=== PATIENT | male | born 1960 | race Caucasian/White ===

== ENCOUNTER 2022-11-08 17:42 | Inpatient (IN) | payer MEDICARE, SELFPAY ==
[2022-11-08] VITALS (7 sets, daily range): BP systolic 124–148; BP diastolic 78–80; PULSE 70–82; RESP 15–18; TEMP 36–36.8; O2SAT 96–100; BMI 28.2; BMI 26.6
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
[2022-11-08 18:37] LABS: Absolute Lymphocyte Count 1.47 X10^3/uL (0.83-4.51); Absolute Neutrophil Count 3.7 X10^3/uL (2.0-7.7); Basophil# 0.07 X10^3/uL; Basophil% 1.2 % (0-1); Eosinophil# 0.13 X10^3/uL; Eosinophils% 2.2 % (0-5); Hematocrit 39.1 % (40-54); Hemoglobin 13.5 g/dL (13.0-16.5); Lymphocyte # 1.47 X10^3/ul (0.83-4.51); Lymphocyte % 24.6 % (19-41); Mean Corp Hgb Conc 34.5 g/dL (32-36); Mean Corpuscular Hgb 31.2 pg (27.0-32.0); Mean Corpuscular Volume 90.3 fL (80-94); Mean Platelet Vol. 10.4 fl (6.2-12.0); Monocyte# 0.63 X10^3/uL; Monocyte% 10.5 % (0-10); NRBC Flagged by Analyzer 0 % (0-5); Neutrophil # 3.67 X10^3/uL (2.7-7.7); Neutrophil % 61.3 % (47-70); Platelet Count 193 K/mm3 (150-450); RBC Distribution Width CV 12.8 % (11.6-14.6); RBC Distribution Width SD 42.5 fl (35.1-43.9); Red Blood Count 4.33 M/mm3 (4.6-6.2)
[2022-11-08 18:52] LABS: Anion Gap 8 (5-15); BUN 12 mg/dL (7-18); BUN/Creat Ratio 12.5 RATIO (10-20); Calcium,Total 8.9 mg/dL (8.5-10.1); Chloride 101 mmol/L (98-107); Creatinine, Serum 0.96 mg/dL (0.70-1.30); EST Glomerular Filtration Rate 84 mL/min (>60); Est Glom Filt Rate - Afr Amer 102 mL/min (>60); Estimated Creatinine Clearance 86.45 ml/min; Glucose 332 mg/dL (74-106); Sodium Level 135 mmol/L (136-145)
[2022-11-08] MEDS: oxyCODONE 5 MG Tablet PO (19:06)
[2022-11-08 19:09] LABS: International Normalized Ratio 0.9; Prothrombin Time (Protime)PT. 12.3 SECONDS (11.7-14.9)
[2022-11-08 19:20] LABS: Alcohol, Blood (Medical)-Serum < 3.0 mg/dL
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
[2022-11-08 19:35] LABS: Amphetamine Urine VISTA NEGATIVE (<1000 ng/mL); Barbiturate Urine VISTA NEGATIVE (< 200 ng/mL); Benzodiazepine Urine VISTA NEGATIVE (< 200 ng/mL); Cocaine Urine VISTA POSITIVE (< 300 ng/mL); Ecstacy Urine VISTA NEGATIVE (< 500 ng/mL); Methadone Urine VISTA NEGATIVE (< 300 ng/mL); PCP Urine VISTA NEGATIVE (< 25 ng/mL); THC Urine VISTA NEGATIVE (< 50 ng/mL); Vista UDS pH Range 6
[2022-11-08 20:22] LABS: Magnesium 1.8 mg/dL (1.6-2.6); Phosphorus 2.9 mg/dL (2.5-4.9)
[2022-11-08 21:00] LABS: HIV - WCH Non-Reactive (Nonreactive)
[2022-11-08 21:57] LABS: AST(SGOT) 27 U/L (15-37); Alanine Aminotransfer ALT/SGPT 24 U/L (16-61); Albumin, Serum 3.1 g/dL (3.2-5.0); Alkaline Phosphatase 111 U/L (45-117); Bilirubin, Direct 0.07 mg/dL (0.00-0.30); Protein, Total 6.1 g/dL (6.4-8.2)
--- NOTE | 2022-11-08 22:11 | CPS ---
smi put in room before pt arrived
[2022-11-08 22:24] LABS: Hepatitis B Surface Antibody Non-Reactive; Hepatitis B Surface Antigen Non-Reactive (Nonreactive); Hepatitis C Antibody Preliminary Reactive (Nonreactive)
[2022-11-08] MEDS: Enoxaparin 100 MG/ML Syringe 90 MG SC (22:51)
[2022-11-08] MEDS: hydrOXYzine PAM 25 MG Capsule 50 MG PO (22:52)
[2022-11-08] MEDS: Phenobarbital 32.4 MG Tablet PO (22:52)
[2022-11-08] MEDS: Lactated Ringers 1,000 ML 125 ML IV (22:53)
[2022-11-08] MEDS: Morphine 2 MG/ML Syringe IV (22:53)
[2022-11-08] MEDS: 0.9% Saline Lock 10 ML Syringe IV (22:53)
[2022-11-08] MEDS: Atorvastatin Calcium 80 MG Tablet PO (22:54)
[2022-11-08 23:25] LABS: Bedside Glucose > 500 mg/dL (74-106)
[2022-11-08 23:53] LABS: Glucose 693 mg/dL (74-106)
[2022-11-08] MEDS: Insulin Human 75/25 Kwickpen 40 UNIT SC (23:57)
[2022-11-09] VITALS (9 sets, daily range): BP systolic 116–136; BP diastolic 71–92; PULSE 69–84; RESP 18–20; TEMP 36.6–37; O2SAT 91–97
[2022-11-09] MEDS: Insulin Lispro 100 UNIT/ML INSULN.PEN 20 UNIT SC (00:32)
[2022-11-09] MEDS: Phenobarbital 32.4 MG Tablet PO ×6 (02:35→22:13)
[2022-11-09 03:25] LABS: Bedside Glucose 187 mg/dL (74-106)
[2022-11-09 07:00] LABS: Bedside Glucose 56 mg/dL (74-106)
[2022-11-09 07:00] LABS: Bedside Glucose 163 mg/dL (74-106)
[2022-11-09 07:03] LABS: Absolute Lymphocyte Count 1.76 X10^3/uL (0.83-4.51); Absolute Neutrophil Count 3.2 X10^3/uL (2.0-7.7); Basophil# 0.05 X10^3/uL; Basophil% 0.9 % (0-1); Eosinophil# 0.16 X10^3/uL; Eosinophils% 2.8 % (0-5); Hematocrit 45.7 % (40-54); Hemoglobin 15.7 g/dL (13.0-16.5); Lymphocyte # 1.76 X10^3/ul (0.83-4.51); Lymphocyte % 31.2 % (19-41); Mean Corp Hgb Conc 34.4 g/dL (32-36); Mean Corpuscular Hgb 31.7 pg (27.0-32.0); Mean Corpuscular Volume 92.3 fL (80-94); Mean Platelet Vol. 10.8 fl (6.2-12.0); Monocyte# 0.43 X10^3/uL; Monocyte% 7.6 % (0-10); NRBC Flagged by Analyzer 0 % (0-5); Neutrophil # 3.24 X10^3/uL (2.7-7.7); Neutrophil % 57.3 % (47-70); Platelet Count 188 K/mm3 (150-450); RBC Distribution Width SD 44.1 fl (35.1-43.9); Red Blood Count 4.95 M/mm3 (4.6-6.2); White Blood Count 5.7 K/mm3 (4.4-11.0)
[2022-11-09 07:14] LABS: Prothrombin Time (Protime)PT. 12.9 SECONDS (11.7-14.9)
[2022-11-09 07:51] LABS: ALB/GLOB Ratio 0.9 RATIO (0.9-2.4); AST(SGOT) 21 U/L (15-37); Alanine Aminotransfer ALT/SGPT 30 U/L (16-61); Albumin, Serum 3.4 g/dL (3.2-5.0); Alkaline Phosphatase 111 U/L (45-117); Anion Gap 7 (5-15); BUN 11 mg/dL (7-18); BUN/Creat Ratio 13.2 RATIO (10-20); Calcium,Total 9.7 mg/dL (8.5-10.1); Chloride 105 mmol/L (98-107); Creatinine, Serum 0.83 mg/dL (0.70-1.30); EST Glomerular Filtration Rate 99 mL/min (>60); Est Glom Filt Rate - Afr Amer 120 mL/min (>60); Estimated Creatinine Clearance 102.95 ml/min; Globulin 3.6 g/dL (2.2-4.2); Glucose 114 mg/dL (74-106); Potassium 3.4 mmol/L (3.5-5.1); Sodium Level 142 mmol/L (136-145)
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
[2022-11-09 08:50] LABS: Hemoglobin A1c 10.8 % (3.8-5.6)
[2022-11-09] MEDS: Sertraline 50 MG Tablet PO (09:13)
[2022-11-09] MEDS: Folic Acid 1 MG Tablet PO (09:13)
[2022-11-09] MEDS: Tamsulosin HCl 0.4 MG Capsule PO (09:14)
[2022-11-09] MEDS: Enoxaparin 100 MG/ML Syringe 90 MG SC ×2 (09:14→22:14)
[2022-11-09] MEDS: Loratadine 10 MG Tablet PO (09:15)
[2022-11-09] MEDS: Thiamine Hydrochloride 100 MG Tablet PO (09:15)
[2022-11-09] MEDS: Aspirin 81 MG TAB.CHEW PO (09:15)
[2022-11-09] MEDS: Acetaminophen 325 MG Tablet 650 MG PO (09:17)
[2022-11-09] MEDS: Gabapentin 300 MG Capsule PO ×2 (09:18→16:20)
[2022-11-09] MEDS: oxyCODONE 5 MG Tablet PO (09:38)
[2022-11-09] MEDS: Insulin Human 75/25 Kwickpen 40 UNIT SC ×2 (09:39→22:09)
--- NOTE | 2022-11-09 09:52 | NURSING ---
per pt request, this nurse called his mother @ [phone], she did not answer phone-pt requesting she call court and let court know why he did not show this am
--- NOTE | 2022-11-09 10:25 | NURSING ---
attempt to call pt mother again unsuccessful, no answer
[2022-11-09] MEDS: Insulin Lispro 100 UNIT/ML INSULN.PEN SC ×2 (11:15→16:20)
[2022-11-09 11:40] LABS: Bedside Glucose 354 mg/dL (74-106)
--- NOTE | 2022-11-09 11:52 | ADDICTION ---
This copywriter met with PT to conduct ASAM, MSE, AUDIT, DUDIT assessments and to plan for d/c. PT A+Ox4 and participated actively. All assessments completed and placed in PT's chart. PT plans to f/u with [facility] on Monday morning. [facility] will transport to treatment.
--- NOTE | 2022-11-09 12:37 | NURSING ---
[facility] - transportation - [facility] [phone] If anything changes like leaves AMA, or not being d/c on Monday.... please call the transportation
--- NOTE | 2022-11-09 12:39 | CASEMGMT ---
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 Patient sitting up in bed and agreeable to speak with SW. SW inquired about patient's HCPOA/LW documents. Patient reports both are completed and on file at hospital in [place]. Patient reports his [place] is his HCPOA. SW encouraged patient to request a copy from that hospital to keep for his personal records and provide a copy to [facility] when able. Patient reports understanding. Hanna Joseph MSW, FELIPA
[2022-11-09] MEDS: Acetaminophen 500 MG Tablet 1000 MG PO ×2 (13:33→22:15)
[2022-11-09] MEDS: Ibuprofen 600 MG Tablet PO (13:33)
[2022-11-09 16:50] LABS: Bedside Glucose 408 mg/dL (74-106)
--- NOTE | 2022-11-09 17:14 | CPS ---
Patient sleeping x3 for IS rounds
[2022-11-09] MEDS: Atorvastatin Calcium 80 MG Tablet PO (22:14)
[2022-11-10] VITALS (8 sets, daily range): BP systolic 104–132; BP diastolic 67–88; PULSE 63–82; RESP 16–18; TEMP 36.5–37.1; O2SAT 93–97
[2022-11-10] MEDS: Insulin Lispro 100 UNIT/ML INSULN.PEN 20 UNIT SC (00:38)
[2022-11-10 02:01] LABS: Bedside Glucose > 500 mg/dL (74-106)
[2022-11-10 02:01] LABS: Bedside Glucose > 500 mg/dL (74-106)
[2022-11-10] MEDS: Phenobarbital 32.4 MG Tablet PO ×6 (02:09→21:52)
[2022-11-10] MEDS: oxyCODONE 5 MG Tablet PO (02:18)
[2022-11-10] MEDS: Ibuprofen 600 MG Tablet PO ×2 (02:19→19:44)
[2022-11-10 02:35] LABS: Bedside Glucose 299 mg/dL (74-106)
[2022-11-10] MEDS: Insulin Lispro 100 UNIT/ML INSULN.PEN SC ×4 (06:38→22:01)
[2022-11-10 06:40] LABS: International Normalized Ratio 0.9; Prothrombin Time (Protime)PT. 12.6 SECONDS (11.7-14.9)
[2022-11-10 07:00] LABS: Bedside Glucose 348 mg/dL (74-106)
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
[2022-11-10] MEDS: Folic Acid 1 MG Tablet PO (09:16)
[2022-11-10] MEDS: Aspirin 81 MG TAB.CHEW PO (09:16)
[2022-11-10] MEDS: Lidocaine 5% Patch 1 PATCH TOPICAL (09:17)
[2022-11-10] MEDS: Enoxaparin 100 MG/ML Syringe 90 MG SC ×2 (09:17→21:54)
[2022-11-10] MEDS: Thiamine Hydrochloride 100 MG Tablet PO (09:17)
[2022-11-10] MEDS: Loratadine 10 MG Tablet PO (09:17)
[2022-11-10] MEDS: Tamsulosin HCl 0.4 MG Capsule PO (09:17)
[2022-11-10] MEDS: Sertraline 50 MG Tablet PO (09:18)
[2022-11-10] MEDS: Insulin Glargine-YFGN 100 UNIT/ML Pen 35 UNIT SC ×2 (09:29→22:01)
[2022-11-10] MEDS: Insulin Lispro 100 UNIT/ML INSULN.PEN 12 UNIT SC ×2 (11:59→16:57)
[2022-11-10 12:30] LABS: Bedside Glucose 371 mg/dL (74-106)
[2022-11-10] MEDS: Acetaminophen 500 MG Tablet 1000 MG PO ×2 (14:08→21:53)
[2022-11-10 17:30] LABS: Bedside Glucose 437 mg/dL (74-106)
[2022-11-10] MEDS: hydrOXYzine PAM 25 MG Capsule 50 MG PO (19:44)
[2022-11-10] MEDS: Atorvastatin Calcium 80 MG Tablet PO (21:52)
[2022-11-10] MEDS: traZODone 100 MG Tablet PO (21:52)
[2022-11-10] MEDS: Insulin Lispro 100 UNIT/ML INSULN.PEN 13 UNIT SC (22:31)
--- NOTE | 2022-11-10 22:47 | NURSING ---
blood sugar 562. dr sequeira notified. total of 20u novolog given in addition to the 35 units of long acting insulin given
[2022-11-10 22:51] LABS: Bedside Glucose > 500 mg/dL (74-106)
[2022-11-11 02:00] VITALS: BP 118/73; PULSE 77; RESP 15; TEMP 36.6; O2SAT 93
[2022-11-11] MEDS: Phenobarbital 32.4 MG Tablet PO ×5 (02:11→23:58)
[2022-11-11 05:22] LABS: Prothrombin Time (Protime)PT. 13.1 SECONDS (11.7-14.9)
[2022-11-11] MEDS: Acetaminophen 500 MG Tablet 1000 MG PO ×3 (06:40→21:54)
[2022-11-11] MEDS: Insulin Lispro 100 UNIT/ML INSULN.PEN 12 UNIT SC ×3 (06:41→16:49)
[2022-11-11] MEDS: Insulin Lispro 100 UNIT/ML INSULN.PEN SC ×4 (06:41→21:56)
[2022-11-11 07:05] VITALS: O2SAT 94
[2022-11-11 07:05] LABS: Bedside Glucose 424 mg/dL (74-106)
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
[2022-11-11 08:00] VITALS: BP 107/84; PULSE 81; RESP 18; TEMP 37.2; O2SAT 95
[2022-11-11] MEDS: Folic Acid 1 MG Tablet PO (08:33)
[2022-11-11] MEDS: Aspirin 81 MG TAB.CHEW PO (08:33)
[2022-11-11] MEDS: Loratadine 10 MG Tablet PO (08:33)
[2022-11-11] MEDS: Fluticasone 0.05% 1 SPRAY NASAL.SRY NASAL (08:33)
[2022-11-11] MEDS: Tamsulosin HCl 0.4 MG Capsule PO (08:33)
[2022-11-11] MEDS: Thiamine Hydrochloride 100 MG Tablet PO (08:33)
[2022-11-11] MEDS: Lidocaine 5% Patch 1 PATCH TOPICAL (08:34)
[2022-11-11] MEDS: Enoxaparin 100 MG/ML Syringe 90 MG SC ×2 (08:34→21:54)
[2022-11-11] MEDS: Sertraline 50 MG Tablet PO (08:34)
[2022-11-11] MEDS: Insulin Glargine-YFGN 100 UNIT/ML Pen 50 UNIT SC ×2 (08:35→21:55)
[2022-11-11 11:46] LABS: Bedside Glucose 233 mg/dL (74-106)
[2022-11-11 14:01] VITALS: BP 109/81; PULSE 76; RESP 18; TEMP 37.1; O2SAT 95
[2022-11-11 17:10] LABS: Bedside Glucose 232 mg/dL (74-106)
[2022-11-11] MEDS: Senna Tablet 2 TABLET PO (19:51)
[2022-11-11] MEDS: Gabapentin 300 MG Capsule PO (19:52)
[2022-11-11] MEDS: Ondansetron 8 MG Tablet PO (19:52)
[2022-11-11] MEDS: Ibuprofen 600 MG Tablet PO (19:52)
[2022-11-11 20:00] VITALS: BP 119/80; PULSE 73; RESP 18; TEMP 36.6; O2SAT 96
[2022-11-11 20:08] VITALS: PULSE 80; RESP 16
[2022-11-11] MEDS: Albuterol 2.5 MG/3 ML VIAL.NEB. INHALATION (20:08)
[2022-11-11] MEDS: Atorvastatin Calcium 80 MG Tablet PO (21:54)
[2022-11-11] MEDS: traZODone 100 MG Tablet PO (22:01)
[2022-11-11] MEDS: Dicyclomine 10 MG Capsule 20 MG PO (22:01)
--- NOTE | 2022-11-11 22:09 | NURSING ---
BLOOD SUGAR >600, LAB BACK UP ORDERED AND CURRENT SCHEDULED INSULIN GIVEN. DR GARIBAY NOTIFIED AND NEW ORDERS RECEIVED.
[2022-11-11] MEDS: Insulin Lispro 100 UNIT/ML INSULN.PEN 20 UNIT SC (22:29)
[2022-11-11 22:30] LABS: Bedside Glucose > 500 mg/dL (74-106)
[2022-11-11 22:48] LABS: Glucose 714 mg/dL (74-106)
[2022-11-12] MEDS: Insulin Lispro 100 UNIT/ML INSULN.PEN 20 UNIT SC ×4 (00:12→17:17)
[2022-11-12] MEDS: LORazepam 1 MG Tablet 2 MG PO (00:18)
[2022-11-12 00:20] LABS: Bedside Glucose > 500 mg/dL (74-106)
[2022-11-12 00:49] VITALS: BP 118/76; PULSE 86; RESP 14; TEMP 36.7; O2SAT 95
[2022-11-12 01:11] LABS: Anion Gap 6 (5-15); BUN 16 mg/dL (7-18); BUN/Creat Ratio 13.8 RATIO (10-20); Calcium,Total 8.9 mg/dL (8.5-10.1); Chloride 97 mmol/L (98-107); Creatinine, Serum 1.16 mg/dL (0.70-1.30); EST Glomerular Filtration Rate 67 mL/min (>60); Est Glom Filt Rate - Afr Amer 82 mL/min (>60); Estimated Creatinine Clearance 73.66 ml/min; Glucose 681 mg/dL (74-106); Potassium 4.2 mmol/L (3.5-5.1); Sodium Level 130 mmol/L (136-145)
--- NOTE | 2022-11-12 01:15 | PN.HOSP_ITS ---
Hospitalist Note Patient with ongoing persistent hyperglycemia, short acting insulin administered, BMP obtained to assure patient not in DKA and was not marked ipo earing however to be cautious we will obtain serum osmolality to assure it is not significantly elevated.
[2022-11-12 01:56] LABS: Bedside Glucose > 500 mg/dL (74-106)
[2022-11-12 03:18] LABS: Osmolality, Serum 306 mOsm/KG (280-301)
[2022-11-12 04:01] LABS: Bedside Glucose 273 mg/dL (74-106)
[2022-11-12 06:00] VITALS: BP 102/70; PULSE 68; RESP 17; TEMP 36.8; O2SAT 95
[2022-11-12] MEDS: Phenobarbital 32.4 MG Tablet PO ×3 (06:08→18:49)
[2022-11-12] MEDS: Acetaminophen 500 MG Tablet 1000 MG PO ×3 (06:08→21:29)
[2022-11-12] MEDS: Insulin Lispro 100 UNIT/ML INSULN.PEN SC ×4 (06:09→21:26)
[2022-11-12] MEDS: Insulin Lispro 100 UNIT/ML INSULN.PEN 12 UNIT SC (06:09)
[2022-11-12 06:45] LABS: Bedside Glucose 175 mg/dL (74-106)
[2022-11-12 07:17] LABS: International Normalized Ratio 1.1; Prothrombin Time (Protime)PT. 13.9 SECONDS (11.7-14.9)
[2022-11-12 07:50] VITALS: O2SAT 93
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
[2022-11-12 09:09] VITALS: BP 98/67; PULSE 70; RESP 18; TEMP 36.6; O2SAT 95
[2022-11-12] MEDS: Lidocaine 5% Patch 1 PATCH TOPICAL (09:14)
[2022-11-12] MEDS: Fluticasone 0.05% 1 SPRAY NASAL.SRY NASAL (09:15)
[2022-11-12] MEDS: Folic Acid 1 MG Tablet PO (09:15)
[2022-11-12] MEDS: Thiamine Hydrochloride 100 MG Tablet PO (09:16)
[2022-11-12] MEDS: Sertraline 50 MG Tablet PO (09:16)
[2022-11-12] MEDS: Tamsulosin HCl 0.4 MG Capsule PO (09:16)
[2022-11-12] MEDS: Aspirin 81 MG TAB.CHEW PO (09:16)
[2022-11-12] MEDS: Loratadine 10 MG Tablet PO (09:17)
[2022-11-12] MEDS: Insulin Glargine-YFGN 100 UNIT/ML Pen 70 UNIT SC ×2 (11:03→21:27)
[2022-11-12] MEDS: Enoxaparin 40 MG/0.4 ML Syringe SC (11:06)
[2022-11-12 11:31] LABS: Bedside Glucose 255 mg/dL (74-106)
[2022-11-12] MEDS: Ondansetron 8 MG Tablet PO (13:29)
[2022-11-12 17:00] LABS: Bedside Glucose 443 mg/dL (74-106)
[2022-11-12 17:19] VITALS: BP 116/80; PULSE 66; RESP 18; TEMP 36.2; O2SAT 94
[2022-11-12] MEDS: Ibuprofen 600 MG Tablet PO (18:52)
[2022-11-12 21:18] VITALS: BP 116/84; PULSE 74; RESP 18; TEMP 36.7; O2SAT 94
[2022-11-12] MEDS: Senna Tablet 2 TABLET PO (21:28)
[2022-11-12] MEDS: traZODone 100 MG Tablet PO (21:28)
[2022-11-12] MEDS: Gabapentin 300 MG Capsule PO (21:28)
[2022-11-12] MEDS: Atorvastatin Calcium 80 MG Tablet PO (21:29)
[2022-11-12 22:00] LABS: Bedside Glucose 387 mg/dL (74-106)
[2022-11-13 01:23] VITALS: BP 91/60; PULSE 69; RESP 16; TEMP 36.3; O2SAT 97
[2022-11-13] MEDS: Phenobarbital 32.4 MG Tablet PO (01:24)
[2022-11-13 01:51] LABS: Bedside Glucose 301 mg/dL (74-106)
[2022-11-13 06:04] VITALS: BP 108/70; PULSE 66; RESP 16; TEMP 36.7; O2SAT 92
[2022-11-13] MEDS: Acetaminophen 500 MG Tablet 1000 MG PO ×3 (06:05→21:35)
[2022-11-13] MEDS: oxyCODONE 5 MG Tablet PO ×4 (06:07→21:35)
[2022-11-13 06:30] LABS: Prothrombin Time (Protime)PT. 12.7 SECONDS (11.7-14.9)
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
[2022-11-13 08:07] VITALS: BP 108/80; PULSE 70; RESP 16; TEMP 36.4; O2SAT 98
[2022-11-13] MEDS: Insulin Lispro 100 UNIT/ML INSULN.PEN 20 UNIT SC ×2 (08:11→11:26)
[2022-11-13] MEDS: Insulin Lispro 100 UNIT/ML INSULN.PEN SC ×3 (08:11→16:47)
[2022-11-13] MEDS: Tamsulosin HCl 0.4 MG Capsule PO (08:12)
[2022-11-13] MEDS: Thiamine Hydrochloride 100 MG Tablet PO (08:12)
[2022-11-13] MEDS: Aspirin 81 MG TAB.CHEW PO (08:13)
[2022-11-13] MEDS: Loratadine 10 MG Tablet PO (08:13)
[2022-11-13] MEDS: Folic Acid 1 MG Tablet PO (08:13)
[2022-11-13] MEDS: Fluticasone 0.05% 1 SPRAY NASAL.SRY NASAL (08:13)
[2022-11-13] MEDS: Lidocaine 5% Patch 1 PATCH TOPICAL (08:14)
[2022-11-13] MEDS: Insulin Glargine-YFGN 100 UNIT/ML Pen 70 UNIT SC (08:14)
[2022-11-13] MEDS: Enoxaparin 40 MG/0.4 ML Syringe SC (08:14)
[2022-11-13] MEDS: Sertraline 50 MG Tablet PO (08:17)
[2022-11-13] MEDS: Ibuprofen 600 MG Tablet PO ×2 (08:27→19:45)
[2022-11-13 09:46] LABS: Bedside Glucose 389 mg/dL (74-106)
[2022-11-13] MEDS: Senna Tablet 2 TABLET PO (11:26)
[2022-11-13 14:07] VITALS: BP 110/60; PULSE 82; RESP 16; TEMP 36.6; O2SAT 98
[2022-11-13 16:40] LABS: Bedside Glucose 225 mg/dL (74-106)
[2022-11-13] MEDS: Insulin Lispro 100 UNIT/ML INSULN.PEN 25 UNIT SC (16:47)
[2022-11-13 20:27] VITALS: BP 115/83; PULSE 68; RESP 16; TEMP 36.4; O2SAT 95
[2022-11-13] MEDS: Atorvastatin Calcium 80 MG Tablet PO (21:35)
[2022-11-13] MEDS: Insulin Glargine-YFGN 100 UNIT/ML Pen 75 UNIT SC (21:36)
[2022-11-13] MEDS: Gabapentin 300 MG Capsule PO (21:42)
[2022-11-13] MEDS: traZODone 100 MG Tablet PO (21:42)
[2022-11-13 22:06] LABS: Bedside Glucose 422 mg/dL (74-106)
[2022-11-13 23:46] LABS: Bedside Glucose 138 mg/dL (74-106)
[2022-11-14 02:44] VITALS: BP 111/81; PULSE 67; RESP 18; TEMP 36.4; O2SAT 94
[2022-11-14] MEDS: oxyCODONE 5 MG Tablet PO ×3 (02:52→11:28)
[2022-11-14] MEDS: Acetaminophen 500 MG Tablet 1000 MG PO (06:10)
[2022-11-14 06:35] LABS: International Normalized Ratio 0.9; Prothrombin Time (Protime)PT. 11.7 SECONDS (11.7-14.9)
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
[2022-11-14] MEDS: Insulin Lispro 100 UNIT/ML INSULN.PEN SC (08:16)
[2022-11-14] MEDS: Insulin Lispro 100 UNIT/ML INSULN.PEN 25 UNIT SC (08:16)
[2022-11-14 08:45] VITALS: BP 98/72; PULSE 68; RESP 18; TEMP 36.4; O2SAT 96
--- NOTE | 2022-11-14 08:57 | PCM.DC ---
Discharge Instructions Diet Discharge Diet: 2000 Calorie Control Diet Dressing / Incision Call your doctor if you observe: - (uncontrolled blood sugar (higher than 400). low blood sugars (less than 70)) Follow Up Care Test Results: Test results from this visit will be discussed in further detail at your follow-up appointment, if applicable. Discharge Plan Admission Admit Date/Time: 11/08/22 19:42 Primary Reason for Your Visit: alcohol withdrawal. Attending Provider: Leonardo Carr Primary Care Provider: MIREYA ALFORD Consulting Providers: Rand Amin Instructions Additional Instructions / Restrictions: You had acute alcohol withdrawal. You completed a course of phenobarbital to assist with the alcohol withdrawal and you did well. Your diabetes is poorly controlled. I have changed your insulin 70/30 to glarine (long-acting insulin) to be taken twice daily and novolog (short-acting insulin) to be taken with meals. Check you blood sugar before meals and keep a record to present this to your primary care physician. You had a history of a blood clot in 2018. I reviewed your records from [place] and saw that it was associated with an IV line. Based on current guidelines, you no longer need to take warfarin (Coumadin), and I have discontinued it on you medication list. Since you'll be living up around here, please get a new primary care physician. Discharge Orders/Prescriptions Prescriptions: New acetaminophen 500 mg Tablet 1,000 mg PO Q8 Qty: 0 0RF ibuprofen 600 mg Tablet 600 mg PO Q8H PRN PRN (Reason: PAIN 1-10) Qty: 0 0RF insulin glargine-yfgn 100 unit/mL (3 mL) Insulin Pen 45 unit subcut BID Qty: 15 0RF oxycodone 5 mg Tablet 5 mg PO Q12H PRN (Reason: pain (scale score 7-10)) 3 Days Qty: 6 0RF insulin lispro [Humalog KwikPen Insulin] 100 unit/mL Insulin Pen 12 unit subcut TIDAC Qty: 15 0RF multivitamin Tablet 1 tab PO DAILY Qty: 30 0RF (DME) pen needle, diabetic 29 gauge needle See Rx Instructions .Route Qty: 100 0RF Rx Instructions: As directed Continued trazodone 50 mg Tablet 50 mg PO QHS tamsulosin 0.4 mg Capsule 0.4 mg PO DAILY aspirin 81 mg Tablet 81 mg PO DAILY fluticasone propionate 50 mcg/actuation [place],Suspension 1 spray INTRANASAL DAILY Rx Instructions: administer into each nostril sertraline 50 mg Tablet 50 mg PO DAILY loratadine 10 mg Tablet 10 mg PO DAILY rosuvastatin 40 mg Tablet 40 mg PO DAILY Discontinued warfarin 5 mg Tablet 5 mg PO DAILY Novolin 70-30 FlexPen U-100 100 unit/mL (70-30) Insulin Pen 40 unit SUBCUT BID Referrals / Follow Up: MIREYA ALFORD [Other] Disposition Disposition (needs filled in before D/C Order can be placed): Home, Self Care
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
[2022-11-14] MEDS: Sertraline 50 MG Tablet PO (09:20)
[2022-11-14] MEDS: Enoxaparin 40 MG/0.4 ML Syringe SC (09:20)
[2022-11-14] MEDS: Loratadine 10 MG Tablet PO (09:20)
[2022-11-14] MEDS: Thiamine Hydrochloride 100 MG Tablet PO (09:20)
[2022-11-14] MEDS: Aspirin 81 MG TAB.CHEW PO (09:20)
[2022-11-14] MEDS: Insulin Glargine-YFGN 100 UNIT/ML Pen 45 UNIT SC (09:21)
[2022-11-14] MEDS: Fluticasone 0.05% 1 SPRAY NASAL.SRY NASAL (09:21)
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
--- NOTE | 2022-11-14 10:18 | PHA.DC.MC ---
Pharmacy Service has performed discharge medication reconciliation and counseling for this patient. Patient had a written script for glucometer/test strips/lancets. Asked this [facility] if it can be sent to our retail pharmacy. This [facility] spoke to PATSY VASQUEZ, she will follow up with patient. 1. ACETAMINOPHEN 1000MG PO Q8 2. IBUPROFEN 600MG PO Q8H PRN PAIN 3. INSULIN GLARGINE 45UNITS SC BID 4. INSULIN LISPRO 12UNITS SC TIDAC 5. MULTIVITAMIN 1T PO DAILY 6. OXYCODONE 5MG PO Q12H PRN PAIN The patient's discharge medication list was reviewed for discrepancies and discrepancies were resolved. Home Medications aspirin 81 mg tablet 81 mg PO DAILY 11/08/22 fluticasone propionate 50 mcg/actuation nasal spray,suspension 1 spray intranasal DAILY 11/08/22 loratadine 10 mg tablet 10 mg PO DAILY 11/08/22 rosuvastatin 40 mg tablet 40 mg PO DAILY 11/08/22 sertraline 50 mg tablet 50 mg PO DAILY 11/08/22 tamsulosin 0.4 mg capsule 0.4 mg PO DAILY 11/08/22 trazodone 50 mg tablet 50 mg PO QHS 11/08/22 acetaminophen 500 mg tablet 1,000 mg PO Q8 #0 tabs 11/14/22 ibuprofen 600 mg tablet 600 mg PO Q8H PRN PRN PAIN 1-10 #0 tabs 11/14/22 insulin glargine-yfgn 100 unit/mL (3 mL) subcutaneous pen 45 unit (0.45 mL) subcut BID #15 mL 11/14/22 insulin lispro 100 unit/mL subcutaneous pen (Humalog KwikPen (U-100) Insulin) 12 unit (0.12 mL) subcut TIDAC #15 mL 11/14/22 multivitamin 1 tab PO DAILY #30 tabs 11/14/22 oxycodone 5 mg tablet 5 mg PO Q12H PRN pain (scale score 7-10) 3 days #6 tabs 11/14/22 pen needle, diabetic 29 gauge #100 ea 11/14/22 The patient was counseled on the following discharge medications and changes in medications for homegoing were reviewed. The Reason for Use, instructions for use, and potential side effects were reviewed for all new medications. The patient's questions regarding all of their medications were answered. The patient was able to verbally demonstrate an understanding of their discharge medications.
[2022-11-14] MEDS: Tamsulosin HCl 0.4 MG Capsule PO (10:28)
[2022-11-14] MEDS: Folic Acid 1 MG Tablet PO (10:28)
--- NOTE | 2022-11-14 10:48 | CASEMGMT ---
Social Work SW received call from Melisa Bower, Behavioral Health Plastic Cablemaking Machine Operator at [facility] in [place] ([phone]). Per Melisa, pts PCP is Dr. Delgado. Melisa requesting update on medical condition and discharge plan. SW met with pt and informed of this. Pt stating he will not be returning to [place] for at least the next two years and does not want SW to provide them information. Pt did give SW permission to call Melisa and let her know that he will not be returning. VM left with Melisa with this information. DION Martínez
[2022-11-14 10:55] LABS: Bedside Glucose 176 mg/dL (74-106)
[2022-11-14 12:01] LABS: Bedside Glucose 107 mg/dL (74-106)
== END 2022-11-14 12:01 | disposition home or self-care (01) | DRG 897 ==
LOC: ED 19:58 → MS3 20:08
PROVIDERS: Admitting Provider Family Medicine; Emergency Provider Emergency Medicine
DX: F10.239 Alcohol dependence with withdrawal, unspecified (principal); E11.65 Type 2 diabetes mellitus with hyperglycemia; J30.9 Allergic rhinitis, unspecified; E78.5 Hyperlipidemia, unspecified; F14.90 Cocaine use, unspecified, uncomplicated; F17.210 Nicotine dependence, cigarettes, uncomplicated; F41.9 Anxiety disorder, unspecified; F32.A Depression, unspecified; N40.0 Benign prostatic hyperplasia without lower urinary tract symptoms; Z79.01 Long term (current) use of anticoagulants; S32.029D Unspecified fracture of second lumbar vertebra, subsequent encounter for fracture with routine healing; S22.42XD Multiple fractures of ribs, left side, subsequent encounter for fracture with routine healing; V43.52XD Car driver injured in collision with other type car in traffic accident, subsequent encounter; Z66 Do not resuscitate; Z79.82 Long term (current) use of aspirin; Z79.899 Other long term (current) drug therapy; Z91.148 Patient's other noncompliance with medication regimen for other reason; Z86.718 Personal history of other venous thrombosis and embolism
CPT/HCPCS: 36415; 80048; 80053; 80076; 80307; 82077; 82947; 82962; 83036; 83735; 83930; 84100; 85025; 85610; 86703; 86706; 86803; 87340; 94640; 94668; 97802; 99252; 99284; J7120; A4216; G0463

== ENCOUNTER 2022-11-14 18:55 | Emergency (ER) | payer MEDICARE, SELFPAY ==
[2022-11-14 18:58] VITALS: BP 124/80; PULSE 83; RESP 16; TEMP 36.4; O2SAT 99; BMI 27.4
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
--- NOTE | 2022-11-14 20:30 | CM.ED ---
Social Work Referral Source: RN Shonna Referral Reason: prescription resources Patient's RN met with JESUS and explained patient was discharged today but unable to afford prescription. SW met with MD Ricardo to review plan, to assist with medications needed for tonight, JESUS to provide resources. SW met with patient and patient's guest and reintroduced herself and role as [facility] SW. Patient recalls SW during recent stay and agreeable to speak with guest present. Patient reports his insulin prescription copay was over $100. Patient recently came to [place] from [place] and plans to remain in [place], currently staying at [facility] in [place]. SW discussed Medicaid application, patient receptive towards applying. SW then discussed [employer] for prescription assistance and reviewed [facility] resource list for [facility] as patient is new to the area. Patient appreciative and receptive towards resources. 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 No other needs at this time. Plan: SW provided Medicaid application with instructions, [employer] program information for prescription assistance and [employer] resource list Hanna HUNTER, FELIPA
[2022-11-14 21:40] LABS: Bedside Glucose 289 mg/dL (74-106)
[2022-11-14] MEDS: Insulin Lispro 100 UNIT/ML INSULN.PEN SC (22:19)
[2022-11-14] MEDS: oxyCODONE 5 MG Tablet PO (22:20)
== END 2022-11-14 22:26 | disposition home or self-care (01) ==
PROVIDERS: Emergency Provider Emergency Medicine; Visit Provider Emergency Medicine
DX: E11.65 Type 2 diabetes mellitus with hyperglycemia (principal); Z79.4 Long term (current) use of insulin; M25.539 Pain in unspecified wrist; E78.5 Hyperlipidemia, unspecified; Z76.0 Encounter for issue of repeat prescription; F17.210 Nicotine dependence, cigarettes, uncomplicated; F10.10 Alcohol abuse, uncomplicated; Z87.81 Personal history of (healed) traumatic fracture
CPT/HCPCS: 82962; 99283

== ENCOUNTER 2022-12-06 23:09 | Emergency (ER) | payer MEDICARE, SELFPAY ==
[2022-12-06 23:10] VITALS: BP 114/87; PULSE 92; RESP 16; TEMP 36.1; O2SAT 98; BMI 29.5
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
--- NOTE | 2022-12-06 23:39 | EKG12_ITS ---
Test Reason : PAIN Blood Pressure : / mmHG Vent. Rate : 075 BPM Atrial Rate : 075 BPM P-R Int : 172 ms QRS Dur : 094 ms QT Int : 376 ms P-R-T Axes : 059 024 047 degrees QTc Int : 419 ms Normal sinus rhythm Normal ECG Confirmed by TERI RAPHAEL, DUTCH ([id number]), supervisor soldering EMILIANO CASTANEDA ([id number]) on 12/09/2022 10:06:57 A M Referred By: Confirmed By:BRIANA WILLIAMSON MD
[2022-12-06] MEDS: Morphine 4 MG/ML Syringe IM (23:44)
--- NOTE | 2022-12-06 23:50 | RAD_ITS ---
INDICATION: Chest pain EXAMINATION/TECHNIQUE: X-RAY - XR Chest 2 Views COMPARISON: None. FINDINGS: LINES/DEVICES: None. LUNGS: No consolidation or evidence of an effusion. No evidence of edema or a pneumothorax. MEDIASTINUM AND CARDIOVASCULAR STRUCTURES: Cardiac silhouette is normal in size and contour. Mediastinum is unremarkable. BONES AND SOFT TISSUES: No acute abnormality. RAD/Chest PA and Lateral IMPRESSION: No evidence of acute cardiopulmonary disease. Electronically Signed: Braydon Benjamin DO at 0:19 EDT ,
== END 2022-12-07 00:47 | disposition home or self-care (01) ==
PROVIDERS: Emergency Provider Emergency Medicine; Visit Provider Emergency Medicine
DX: R07.89 Other chest pain (principal); E11.9 Type 2 diabetes mellitus without complications; Z79.4 Long term (current) use of insulin; R07.81 Pleurodynia; R06.02 Shortness of breath; H92.02 Otalgia, left ear; E78.5 Hyperlipidemia, unspecified; Z79.82 Long term (current) use of aspirin; Z79.899 Other long term (current) drug therapy; F17.210 Nicotine dependence, cigarettes, uncomplicated
CPT/HCPCS: 71046; 93005; 96372; 99282

== ENCOUNTER 2023-01-04 18:07 | Emergency (ER) | payer MEDICARE, SELFPAY ==
[2023-01-04 18:12] VITALS: BP 122/109; RESP 20; TEMP 36.3; BMI 28.3
--- NOTE | 2023-01-04 18:12 | EKG12_ITS ---
Test Reason : ETOH Blood Pressure : / mmHG Vent. Rate : 091 BPM Atrial Rate : 091 BPM P-R Int : 160 ms QRS Dur : 096 ms QT Int : 382 ms P-R-T Axes : 045 021 036 degrees QTc Int : 469 ms Normal sinus rhythm Inferior infarct , age undetermined Abnormal ECG Confirmed by SIMI RAPHAEL, STEPHANY ([id number]), news videotape editor EMILIANO CASTANEDA ([id number]) on 01/05/2023 2:28:02 PM Referred By: Confirmed By:STEPHANY BELCHER MD
--- NOTE | 2023-01-04 18:12 | CT_ITS ---
STUDY: CT BRAIN WITHOUT CONTRAST REASON FOR EXAM: Male, 62 years old. AMS RADIATION DOSAGE (If Supplied By Facility): CTDIvol = ( 44.99 ) mGy, DLP = ( 863.60 ) mGycm TECHNIQUE: Transaxial CT imaging of the brain was performed without administration of intravenous contrast material. Individualized dose optimization techniques were used for this CT. COMPARISON: No relevant priors. FINDINGS: Normal soft tissue structures. Normal calvarium. Normal size ventricles and extra-axial spaces for the patient''s age. Normal white matter tracts of the cerebral hemispheres. Normal basal ganglia and thalami. Normal brainstem. Normal cerebellum. There is no intracranial hemorrhage. There are no findings of an acute ischemic infarction. Normal visualized paranasal sinuses. CT/Brain/Head without Contrast IMPRESSION: Normal unenhanced CT scan of the brain. Electronically Signed: Mitch Rubalcava MD at 19:39 EDT ,
--- NOTE | 2023-01-04 18:13 | CT_ITS ---
STUDY: CT CERVICAL SPINE WITHOUT CONTRAST REASON FOR EXAM: Male, 62 years old. AMS, fall RADIATION DOSAGE (If Supplied By Facility): CTDIvol = ( 25.82 ) mGy, DLP = ( 598.10 ) mGycm TECHNIQUE: High resolution transaxial imaging was performed without contrast material. Sagittal and coronal images were reconstructed. Individualized dose optimization techniques were used for this CT. COMPARISON: None FINDINGS: Normal craniovertebral junction. There are degenerative changes of the anterior atlantoaxial articulation. Normal odontoid process. Normal cervical lordosis. Normal vertebral bodies and posterior osseous elements. C2-3: Moderate facet hypertrophy produces mild right neural foraminal stenosis. 2 mm of anterolisthesis of C2 on C3 without central spinal stenosis. C3-4: Moderate broad disc osteophyte complex and left uncovertebral hypertrophy produces moderate spinal stenosis and mild left neural foraminal stenosis. C4-5: Normal endplates. Normal disc height and morphology. Normal central canal and intervertebral neuroforamina. C5-6: Mild broad disc osteophyte complex and right uncovertebral hypertrophy produces mild spinal stenosis and moderate right neural foraminal stenosis. C6-7: Normal endplates. Normal disc height and morphology. Normal central canal and intervertebral neuroforamina. C7-T1: Normal endplates. Normal disc height and morphology. Normal central canal and intervertebral neuroforamina. Normal visualized soft tissue structures. CT/Spine Cervical without Contras IMPRESSION: No acute fracture or subluxation. Electronically Signed: Mitch Rubalcava MD at 19:46 EDT ,
--- NOTE | 2023-01-04 18:13 | RAD_ITS ---
STUDY: X-RAY - RIGHT SHOULDER REASON FOR EXAM: Male, 62 years old. shoulder pain TECHNIQUE: 2 view(s) of the shoulder. COMPARISON: None. FINDINGS: There is mild degenerative arthrosis of the glenohumeral articulation. There is degenerative arthrosis of the acromioclavicular joint without inferior osseous spur formation. Normal acromion. Normal humeral head and visualized proximal humerus. The soft tissue structures are unremarkable. Normal visualized pulmonary apex. RAD/Shoulder min 2 Views IMPRESSION: Mild glenohumeral and acromioclavicular joint arthrosis. Electronically Signed: Mitch Rubalcava MD at 19:49 EDT ,
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
[2023-01-04] MEDS: Midazolam 5 MG/ML Syringe IM (18:18)
[2023-01-04 18:20] VITALS: BP 167/101; PULSE 108; RESP 20
--- NOTE | 2023-01-04 18:23 | ED.RN ---
PT ARRIVES TO ED INTOXICATED, SHOUTING, CURSING AT POLICE, EMS AND STAFF. PT WITH FISTS RAISED SWINGING AT POLICE OFFICERS ON THE EMS COT PRIOR TO MOVING OVER TO ED BED. PT TRYING TO HIT STAFF WITH CLOSED FISTS. PT SHOUTING, FUCK YOU, I HOPE YOU . HEY OFFICER KISS MY JEREMY, GO AHEAD KISS IT. DR. RENDON INFORMED OF IN RESTRAINTS. THEATRE MANAGER NOTIFIED AT 1814.
[2023-01-04] MEDS: Haloperidol Lactate 5 MG/ML Vial IM (18:24)
[2023-01-04] MEDS: DiphenhydrAMINE 50 MG/ML Syringe IM (18:24)
[2023-01-04 18:25] VITALS: O2SAT 95
[2023-01-04 18:33] VITALS: BP 134/94; PULSE 94; RESP 22; O2SAT 92
[2023-01-04 18:50] LABS: Absolute Lymphocyte Count 2.75 X10^3/uL (0.83-4.51); Absolute Neutrophil Count 3.9 X10^3/uL (2.0-7.7); Basophil# 0.08 X10^3/uL; Basophil% 1.1 % (0-1); Eosinophil# 0.14 X10^3/uL; Eosinophils% 1.9 % (0-5); Hematocrit 48.7 % (40-54); Hemoglobin 16.5 g/dL (13.0-16.5); Lymphocyte # 2.75 X10^3/ul (0.83-4.51); Lymphocyte % 37.2 % (19-41); Mean Corp Hgb Conc 33.9 g/dL (32-36); Mean Corpuscular Hgb 30.8 pg (27.0-32.0); Mean Platelet Vol. 9.9 fl (6.2-12.0); Monocyte# 0.47 X10^3/uL; Monocyte% 6.4 % (0-10); NRBC Flagged by Analyzer 0 % (0-5); Neutrophil # 3.93 X10^3/uL (2.7-7.7); Platelet Count 254 K/mm3 (150-450); Red Blood Count 5.35 M/mm3 (4.6-6.2); White Blood Count 7.4 K/mm3 (4.4-11.0)
[2023-01-04 19:07] LABS: ALB/GLOB Ratio 1.1 RATIO (0.9-2.4); AST(SGOT) 17 U/L (15-37); Alanine Aminotransfer ALT/SGPT 26 U/L (16-61); Albumin, Serum 3.9 g/dL (3.2-5.0); Alkaline Phosphatase 127 U/L (45-117); Anion Gap 8 (5-15); BUN 8 mg/dL (7-18); BUN/Creat Ratio 7.4 RATIO (10-20); Chloride 107 mmol/L (98-107); Creatinine, Serum 1.08 mg/dL (0.70-1.30); EST Glomerular Filtration Rate 73 mL/min (>60); Est Glom Filt Rate - Afr Amer 89 mL/min (>60); Estimated Creatinine Clearance 82.59 ml/min; Globulin 3.6 g/dL (2.2-4.2); Glucose 144 mg/dL (74-106); Potassium 3.7 mmol/L (3.5-5.1); Protein, Total 7.5 g/dL (6.4-8.2); Sodium Level 140 mmol/L (136-145)
--- NOTE | 2023-01-04 19:18 | RAD_ITS ---
STUDY: X-RAY CHEST REASON FOR EXAM: Male, 62 years old. AMS TECHNIQUE: Single AP portable view of the chest. COMPARISON: 12/06/2022 FINDINGS: The lungs are clear and expanded. There is no demonstrated pleural abnormality. Normal size heart. Normal mediastinum and sheila. Normal visualized pulmonary arteries. Normal visualized aortic arch and descending thoracic aorta. Normal visualized thoracic spine. Normal visualized ribs, clavicles, and shoulders. There is no demonstrated abnormality of the visualized soft tissue structures of the upper abdomen. RAD/Chest 1 View (Portable) IMPRESSION: Normal x-ray examination of the chest. Electronically Signed: Mitch Rubalcava MD at 19:54 EDT ,
--- NOTE | 2023-01-04 20:51 | ED.RN ---
2015: PATIENT WOKE UP AND PULLED OUT IV, DR RENDON NOTIFIED.
[2023-01-04] MEDS: Thiamine Hydrochloride 200 MG/2 ML Vial 100 MG IM (22:16)
[2023-01-04 22:19] VITALS: BP 124/82; PULSE 89; RESP 16; O2SAT 94
[2023-01-05] VITALS: RESP 16
[2023-01-05 00:37] LABS: CPK Total, Creatine Kinase 813 U/L (39-308)
[2023-01-05 00:39] LABS: Bedside Glucose 165 mg/dL (74-106)
--- NOTE | 2023-01-05 03:05 | ED.RN ---
attempted to call for ride left message at this time
[2023-01-05 03:09] VITALS: RESP 16; O2SAT 96
[2023-01-05 05:00] VITALS: RESP 16
== END 2023-01-05 06:34 | disposition home or self-care (01) ==
PROVIDERS: Emergency Provider Emergency Medicine; Visit Provider Emergency Medicine
DX: F10.129 Alcohol abuse with intoxication, unspecified (principal); F14.10 Cocaine abuse, uncomplicated; E11.9 Type 2 diabetes mellitus without complications; Z79.4 Long term (current) use of insulin; E78.5 Hyperlipidemia, unspecified; N40.0 Benign prostatic hyperplasia without lower urinary tract symptoms; F17.210 Nicotine dependence, cigarettes, uncomplicated; Z79.82 Long term (current) use of aspirin; Z79.899 Other long term (current) drug therapy; S40.211A Abrasion of right shoulder, initial encounter; X58.XXXA Exposure to other specified factors, initial encounter; R45.1 Restlessness and agitation
CPT/HCPCS: 70450; 71045; 72125; 73030; 80053; 82077; 82550; 82962; 85025; 93005; 96372; 99285; A4216; J3490

== ENCOUNTER → 2023-05-04 | Outpatient (CLI) | payer MEDICARE, SELFPAY ==
[2023-05-04 17:33] LABS: Absolute Lymphocyte Count 3.01 X10^3/uL (0.83-4.51); Absolute Neutrophil Count 5.3 X10^3/uL (2.0-7.7); Basophil% 1.1 % (0-1); Eosinophil# 0.24 X10^3/uL; Eosinophils% 2.5 % (0-5); Hematocrit 49.6 % (40-54); Hemoglobin 16.2 g/dL (13.0-16.5); Lymphocyte # 3.01 X10^3/ul (0.83-4.51); Mean Corp Hgb Conc 32.7 g/dL (32-36); Mean Corpuscular Hgb 30.5 pg (27.0-32.0); Mean Corpuscular Volume 93.4 fL (80-94); Mean Platelet Vol. 11.4 fl (6.2-12.0); Monocyte% 7.4 % (0-10); NRBC Flagged by Analyzer 0 % (0-5); Neutrophil # 5.34 X10^3/uL (2.7-7.7); Neutrophil % 56.7 % (47-70); Platelet Count 261 K/mm3 (150-450); RBC Distribution Width CV 12.6 % (11.6-14.6); RBC Distribution Width SD 43.5 fl (35.1-43.9); Red Blood Count 5.31 M/mm3 (4.6-6.2); White Blood Count 9.4 K/mm3 (4.4-11.0)
[2023-05-04 17:56] LABS: Hemoglobin A1c 10.9 % (3.8-5.6)
[2023-05-04 18:06] LABS: AST(SGOT) 11 U/L (15-37); Alanine Aminotransfer ALT/SGPT 30 U/L (16-61); Albumin, Serum 3.9 g/dL (3.2-5.0); Alkaline Phosphatase 108 U/L (45-117); Anion Gap 11 (5-15); BUN 13 mg/dL (7-18); BUN/Creat Ratio 15.6 RATIO (10-20); Calcium,Total 9.3 mg/dL (8.5-10.1); Chloride 107 mmol/L (98-107); Cholesterol 143 mg/dL (200); Creatinine, Serum 0.83 mg/dL (0.70-1.30); EST Glomerular Filtration Rate 99 mL/min (>60); Est Glom Filt Rate - Afr Amer 119 mL/min (>60); Glucose 165 mg/dL (74-106); High Density Lipoprotein 65 mg/dL; Potassium 3.9 mmol/L (3.5-5.1); Protein, Total 7.9 g/dL (6.4-8.2); Sodium Level 139 mmol/L (136-145); Thyroid Stim Hormone (TSH) 1.76 uIU/mL (0.358-3.74); Triglycerides 156 mg/dL; Very Low Density Lipoprotein 31 mg/dL (5-40)
== END | disposition home or self-care (01) ==
LOC: MFPLAB 14:33
PROVIDERS: PCP Family Medicine; Visit Provider Family Medicine
DX: E11.9 Type 2 diabetes mellitus without complications (principal)
CPT/HCPCS: 36415; 80053; 80061; 83036; 84443; 85025

== ENCOUNTER → 2023-09-19 | Outpatient (CLI) | payer MEDICARE, SELFPAY ==
--- NOTE | 2023-09-19 11:37 | RAD_ITS ---
INDICATION: Acute on chronic pain EXAMINATION/TECHNIQUE: X-RAY - LEFT XR Knee Complete 4 Views or More 4 VIEWS COMPARISON: None. FINDINGS: BONES: No fracture demonstrated. Marked joint space narrowing of 3 joint compartments with subchondral sclerosis, and osteophytes. Spurring at the tibial spines. JOINTS: No dislocation. SOFT TISSUES: Unremarkable. RAD/Knee 4 or More Views IMPRESSION: No evidence of fracture. Degenerative changes. Electronically Signed: Eleonora Hernandez MD at 8:13 EDT ,
== END | disposition home or self-care (01) ==
LOC: MTRAD 11:32
PROVIDERS: PCP Family Medicine; Referring Provider Family Medicine; Visit Provider Family Medicine
DX: M25.562 Pain in left knee (principal); G89.29 Other chronic pain
CPT/HCPCS: 73564

== ENCOUNTER → 2023-11-07 | Outpatient (CLI) | payer MEDICARE, SELFPAY ==
--- NOTE | 2023-11-07 10:55 | RAD_ITS ---
INDICATION: ABDOMINAL PAIN EXAMINATION/TECHNIQUE: X-RAY - XR Abdomen Series W/ Chest 1 View COMPARISON: No relevant prior comparison study available FINDINGS: --Chest: LINES/DEVICES: None. LUNGS: No consolidation, edema or effusion. No pneumothorax. MEDIASTINUM AND CARDIOVASCULAR STRUCTURES: Cardiac silhouette not enlarged. Central airways and mediastinal contour are unremarkable. BONES AND SOFT TISSUES: No acute findings. --Abdomen: BOWEL GAS PATTERN: Nonspecific slightly prominent gaseous small bowel loops on the left side of the abdomen. The gas pattern however is nonobstructive at this time. FREE AIR: None visualized. ORGANOMEGALY: Not seen. CALCIFICATIONS: No abnormal calcifications observed. BONES AND SOFT TISSUES: Degenerative changes in the lumbar spine. RAD/Acute Abdomen Inc Chest IMPRESSION: Nonspecific gaseous small bowel loops on the left-sided abdomen could be due to ileus or enteritis. Early small bowel obstruction is less likely. Electronically Signed: Cem Wilkerson MD at 11:22 EDT ,
[2023-11-07 12:47] LABS: Absolute Lymphocyte Count 1.46 X10^3/uL (0.83-4.51); Absolute Neutrophil Count 8.5 X10^3/uL (2.0-7.7); Basophil# 0.04 X10^3/uL; Basophil% 0.4 % (0-1); Eosinophil# 0.06 X10^3/uL; Eosinophils% 0.5 % (0-5); Hematocrit 40.8 % (40-54); Hemoglobin 13.4 g/dL (13.0-16.5); Lymphocyte # 1.46 X10^3/ul (0.83-4.51); Mean Corp Hgb Conc 32.8 g/dL (32-36); Mean Corpuscular Hgb 29.3 pg (27.0-32.0); Mean Corpuscular Volume 89.3 fL (80-94); Mean Platelet Vol. 11.2 fl (6.2-12.0); Monocyte# 1.17 X10^3/uL; Monocyte% 10.4 % (0-10); NRBC Flagged by Analyzer 0 % (0-5); Neutrophil # 8.47 X10^3/uL (2.7-7.7); Neutrophil % 75.2 % (47-70); Platelet Count 315 K/mm3 (150-450); RBC Distribution Width CV 12.4 % (11.6-14.6); RBC Distribution Width SD 40.9 fl (35.1-43.9); Red Blood Count 4.57 M/mm3 (4.6-6.2); White Blood Count 11.3 K/mm3 (4.4-11.0)
[2023-11-07 14:10] LABS: ALB/GLOB Ratio 0.4 RATIO (0.9-2.4); AST(SGOT) 17 U/L (15-37); Alanine Aminotransfer ALT/SGPT 18 U/L (16-61); Albumin, Serum 2.3 g/dL (3.2-5.0); Alkaline Phosphatase 126 U/L (45-117); Amylase 18 U/L (25-115); Anion Gap 11 (5-15); BUN 10 mg/dL (7-18); BUN/Creat Ratio 9.6 RATIO (10-20); Calcium,Total 9.3 mg/dL (8.5-10.1); Chloride 97 mmol/L (98-107); Creatinine, Serum 1.04 mg/dL (0.70-1.30); EST Glomerular Filtration Rate 76 mL/min (>60); Est Glom Filt Rate - Afr Amer 92 mL/min (>60); Globulin 5.7 g/dL (2.2-4.2); Glucose 272 mg/dL (74-106); Potassium 4.1 mmol/L (3.5-5.1); Sodium Level 130 mmol/L (136-145); Thyroid Stim Hormone (TSH) 2.53 uIU/mL (0.358-3.74); Troponin-I HS 4 pg/mL (3.0-78.0)
== END | disposition home or self-care (01) ==
PROVIDERS: PCP Family Medicine; Referring Provider Family Medicine; Visit Provider Family Medicine
DX: R10.9 Unspecified abdominal pain (principal); R07.9 Chest pain, unspecified
CPT/HCPCS: 36415; 74022; 80053; 82150; 84443; 84484; 85025

== ENCOUNTER 2024-10-03 08:55 | Outpatient (CLI) | payer MEDICARE, SELFPAY ==
[2024-10-23 14:08] LABS: Testosterone, % Free 2.54 % (1.50-4.20); Testosterone, Free 8.08 ng/dL (5.00-21.00); Testosterone, Total 318 ng/dL (264-916)
== END 2024-10-03 23:59 | disposition home or self-care (01) ==
LOC: MTLAB 08:56
PROVIDERS: PCP Family Medicine; Referring Provider Family Medicine; Visit Provider Family Medicine
DX: N62 Hypertrophy of breast (principal)
CPT/HCPCS: 36415; 84402; 84403

== ENCOUNTER → 2024-10-17 | Outpatient (CLI) | payer MEDICARE, SELFPAY ==
--- NOTE | 2024-10-17 08:48 | CDU_ITS ---
Reason For Study Reason For Study: Amaurosis fugax Rt. Velocities/BP Lt. Velocities/BP Prox CCA 75.9/20.1 cm/sec. Prox CCA 71.4/20.9 cm/sec. Mid CCA 58.9/14.5 cm/sec. Mid CCA 54.3/15.2 cm/sec. Dist CCA 53.2/16.3 cm/sec. Dist CCA 60/18.7 cm/sec. Prox ICA 37.8/10.7 cm/sec. Prox ICA 33.7/13.7 cm/sec. Mid ICA 44.7/18.6 cm/sec. Mid ICA 36.5/15.2 cm/sec. Dist ICA 50/22.9 cm/sec. Dist ICA 47.4/25.6 cm/sec. Rt. ICA/CCA = 0.85. Lt. ICA/CCA = 0.87. Prox ECA 61.7/9.7 cm/sec. Prox ECA 66.4/10.2 cm/sec. Rt. Vert. 30.4/10.2 cm/sec. Lt. Vert. 50.9/20.3 cm/sec. Right Extracranial There is intimal thickening but no significant atherosclerotic plaque noted in the right common carotid artery. There is homogeneous, smooth atherosclerotic plaque noted in the right internal carotid artery. There is intimal thickening but no significant atherosclerotic plaque noted in the right external carotid artery. Antegrade flow is noted in the right vertebral artery. Left Extracranial There is intimal thickening but no significant atherosclerotic plaque noted in the left common carotid artery. There is intimal thickening but no significant atherosclerotic plaque noted in the left internal carotid artery. There is intimal thickening but no significant atherosclerotic plaque noted in the left external carotid artery. Antegrade flow is noted in the left vertebral artery. Procedure Carotid Duplex [id number]. This is a Carotid Duplex examination using B-mode, color flow and specral Doppler. Exam performed in department. VL/Carotid Duplex Ultrasound Interpretation Summary Mild (<50%) stenosis right extracranial internal carotid. Normal left extracranial internal carotid. Patent and antegrade vertebrals bilaterally. Ordering Physician: Nilson Luna Referring Physician: Mago Steel Performed By: Bee Parsons RVT
== END | disposition home or self-care (01) ==
PROVIDERS: PCP Family Medicine; Referring Provider Ophthalmology; Visit Provider Ophthalmology
DX: G45.3 Amaurosis fugax (principal)
CPT/HCPCS: 93880

== ENCOUNTER → 2025-02-27 | Outpatient (CLI) | payer MEDICARE, SELFPAY ==
[2025-02-27 18:52] LABS: Hepatitis B Surface Antigen Nonreactive (Nonreactive); Hepatitis C Antibody REAC (Nonreactive)
== END | disposition home or self-care (01) ==
LOC: MFPLAB 16:20
PROVIDERS: PCP Family Medicine; Visit Provider Family Medicine
DX: Z12.11 Encounter for screening for malignant neoplasm of colon (principal); E11.9 Type 2 diabetes mellitus without complications; R76.8 Other specified abnormal immunological findings in serum
CPT/HCPCS: 36415; 83036; 86704; 86705; 86706; 86803; 87340; 87522; 87902

== ENCOUNTER → 2025-04-11 | Outpatient (CLI) | payer MEDICARE, SELFPAY ==
--- OUTSIDE RECORDS SUMMARY | 2025-04-11 15:55 | XMS RPT_ITS | CCD ---
Author Organization [facility] Care Team Providers Care Head Of Art Name Role Phone MISTI SOLIMAN MD Attending Unavailable MISTI SOLIMAN MD Primary Care Unavailable MISTI SOLIMAN MD Admitting Unavailable LEE GRADY MD Admitting Unavailable LEE GRADY MD Attending Unavailable LEE GRADY MD Primary Care Unavailable Dr. Ty Pepper Emergency Provider [phone] Rand Amin Admit Provider [phone] Rand Amin Other Provider MIREYA ALFORD Primary Care Provider Dr. Leonardo Carr Attending Provider [phone] Leonardo Carr Other Provider LEXI RAPHAEL, MAGO Primary Care Physician Harish Rounding Nurse, Lisandro Unavailable Emiliano Sutton Unavailable Unavailable BRANDIN ROSSI, VERITO Gardner Attending Unavailab zulema ELLIOTT MD, MAGO Primary Care Unavailable LEXI RAPHAEL, MAGO Primary Care Unavailable SAUNDRA RAPHAEL, DR PORTILLO Consulting Unavailable JARED BREWSTER DO Attending Unavailable RED VALENZUELA MD Admitting Unavailable FLOR CHRISTIE MD Consulting Unavailable MILAGRO PETE MD Consulting Unavaila abram DUMONT MD, DR SYLWIA REAL Consulting Unavaila abram BYRD MD, DR YOLANDA Livingston Admitting Unavailable ANDREA RAPHAEL, DR SRIVASTAVA Consulting UnavailSONI Lee MD Attending Unavailable LEXI RAPHAEL, MAGO Primary Care Unavailable SMITH MCKEON MD Consulting UnavailBUCK Butler DO Attending Unavailable LEXI RAPHAEL, MAGO Primary Care Unavailable Lexi RAPHAEL, Mago Primary Care Provider CELSA-SULLY BYNUM Admitting Unava ilable DEBORAH WHIPPLE Attending Unavailable TABET, JEWEL QUINONEZ Attending Unavailabl e LEXI, CHALON Primary Care Unavailable TABET, JEWEL QUINONEZ Attending Unavailabl e LEXI, CHALON Primary Care Unavailable TABET, JEWEL QUINONEZ Attending Unavailabl e LEXI, CHALON Primary Care Unavailable SEGUN ESCALONA Attending Unavailable LEXI, CHALON Primary Care Unavailable LEXI, CHALON Primary Care Unavailable EVANS JEAN Attending Unavailable EVANS MCCLOUD Attending Unavailable LEXI, CHALON Primary Care Unavailable Lexi RAPHAEL, Mago Primary Care Provider Mago Elliott MD Attending Provider Lexi RAPHAEL, Mago Referring Provider Jeremy RAPHAEL, Dr. Devine Attending Provider Jeremy RAPHAEL, Dr. Devine Referring Provider Nathanael RAPHAEL, Dr. Patterson Attending Provider CHUCKIE BURNS Attending Unavailable LEXI, CHALON Primary Care Unavailable LEXI, CHALON Primary Care Unavailable AKOSUA HERNANDEZ Attending Unavaila ble BRIEN, TRACEY Referring Unavailable LEXI, CHALON Primary Care Unavailable ELLI, GIA Referring Unavailable LEXI, CHALON Primary Care Unavailable LEXI, CHALON Primary Care Unavailable TABET, JEWEL QUINONEZ Referring Unavailabl e ELLI, GIA Referring Unavailable LEXI, CHALON Primary Care Unavailable LEXI, CHALON Primary Care Unavailable DONNA BAILEY Attending Unavailable LEXI, CHALON Primary Care Unavailable LEXI, CHALON Primary Care Unavailable LEXI, CHALON Primary Care Unavailable BOOZER, TRACEY Referring Unavailable LEXI, CHALON Primary Care Unavailable LEXI, CHALON Primary Care Unavailable TABET, JEWEL QUINONEZ Referring Unavailabl e LEXI, CHALON Primary Care Unavailable LEXI, CHALON Primary Care Unavailable AKOSUA HERNANDEZ Attending Unavaila Daniella Santana Attending Unavailable Daniella Oliva Attending Unavailable Lexi RAPHAEL, Mago Primary Care Provider Mago Elliott MD Attending Provider [phone] GRACIE PICKERING Attending Unavailable LEXI, CHALON Primary Care Unavailable ELLI, GIA Attending Unavailable LEXI, CHALON Primary Care Unavailable LEXI, CHALON Primary Care Unavailable GIA CALLOWAY Referring Unavailable KEVIN MOLINA Attending Unavailable LEXI, CHALON Primary Care Unavailable AMRIK BELLE Referring Unavailable DL JAMISON Attending Unavailable LEXI, CHALON Primary Care Unavailable SHOSHANA BARRAZA Attending Unavailable GIA CALLOWAY Attending Unavailable LEXI, CHALON Primary Care Unavailable JULIOCESAR FRAZIER Admitting Unavailable FREDDIEJULIOCESAR Parham Attending Unavailable FREDDIEJULIOCESAR Referring Unavailable LEXI, CHALON Primary Care Unavailable HÉCTOR, KEVIN Referring Unavailable LEXI, CHALON Primary Care Unavailable Lexi, Chalon Primary Care Unavailable Lexi, Chalon Attending Unavailable Lexi, Chalon Primary Care Unavailable Lexi, Chalon Attending Unavailable Lexi, Chalon Referring Unavailable Toni Luna Referring Unavailable Lexi, Chalon Primary Care Unavailable Toni Luna Attending Unavailable Lexi, Chalon Primary Care Unavailable Leonardo Huffman Attending Unavailable Toni Luna Referring Unavailable Allergies Allergy Classification Reported Allergen(s) Allergy Type Date of Onset Reaction(s) Facility Acetaminophen (1 source) Acetaminophen; Translations: [acetaminophen] Drug Allergy [facility] Macrolides (antibiotic) (2 sources) Erythromycin; Translations: [erythromycin] Drug Allergy [facility] (5 sources) Erythromycin; Translations: [ERYTHROMYCIN] Drug Allergy 01-04-2023 [facility] Repository (20 sources) Azithromycin; Translations: [AZITHROMYCIN] Drug Allergy 11-08-2022 [facility] (20 sources) Erythromycin; Translations: [erythromycin] Drug Allergy 01-04-2023 [facility] (20 sources) Acetaminophen; Translations: [acetaminophen] Drug Allergy 11-23-2023 [facility] (1 source) Azithromycin Drug Allergy 10-16-2023 [facility] Repository (1 source) Erythromycin Drug Allergy 10-16-2023 [facility] Repository Medications Current Medications Medication Drug Class(es) Dates Sig (Normalized) Sig (Original) acetaminophen 325 mg oral capsule (8 sources) Start: 11-22-2023 take 1 capsule by mouth every four hours as needed Tylenol 325 mg oral capsule Dose : 650 mg =, Oral, q4h, PRN Temperature greater than 38.5 degrees C, 0 Refill(s) Start Date: 11/22/23 Status: Ordered Start: 11-14-2022 take 2 tablets by mo uth every eight hours Acetaminophen 500 mg Tablet Active 1000 mg PO EVERY 8 HOURS 0 November 14, 2022 12:00am Start: 11-14-2022 take 1000 mg by mout h every eight hours Acetaminophen Active 1000 MG PO EVERY 8 HOURS November 14, 2022 12:00am amoxicillin 875 mg / clavulanate 125 mg oral tablet (2 sources) Penicillin-class Antibacterial Start: 03-22-2024 End: 03-29-2024 take 1 tablet by mouth twice daily amoxicillin-clavulanate potassium (AUGMENTIN) 875-125 mg per tablet Indications: Dog bite of multiple sites Take 1 tablet by mouth two times a day for 7 days. 14 tablet 03/22/2024 03/29/2024 Active Start: 12-05-2023 End: 12-15-2023 take 1 tablet by mouth every twelve hours amoxicillin-clavulanate 875 mg-125 mg or al tablet 1 tab(s), Oral, q12h, # 20 tab(s), 0 Refill(s), 96 Start Date: 12/05/23 Stop Date: 12/15/23 Status: Ordered amylase 98268 unt / lipase 31385 unt / protease 74777 unt delayed release oral capsule (20 sources) Start: 04-11-2024 End: 09-04-2024 take 1 capsule by mouth at bedtime hlccyy-fxrowjni-qtwnlih (CREON 12) 12,000-38,000 -60,000 unit delayed release capsule Take 1 capsule by mouth with meals and at bedtime. 120 capsule 2 09/04/2024 Active Start: 12-21-2023 Creon 12,000 u nits oral delayed release capsule Dose = 1 cap(s), Oral, QIDM, # 120 cap(s), 2 Refill(s), Pharmacy: [id number], 185.4, cm, 12/19/23 5:12:00 EDT, Height, kg, 12/19/23 5:12:00 EDT, Dosing Weight Start Date: 12/21/23 Status: Ordered aspirin 81 mg delayed release oral tablet (20 sources) Platelet Aggregation Inhibitor, Nonsteroidal Anti-inflammatory Drug Start: 11-22-2023 aspirin 81 mg ora l delayed release tablet Dose : 81 mg = 1 tab(s), Oral, qDay, 0 Refill(s) Start Date: 11/22/23 Status: Ordered Start: 11-08-2022 End: 10-16-2023 take 1 tablet by mouth once daily Aspirin 81 mg Tablet Discontinued 81 mg PO DAILY November 08, 2022 12:00am October 16, 2023 9:44am bisacodyl 5 mg delayed release oral tablet (1 source) Stimulant Laxative Start: 12-21-2023 End: 12-26-2023 bisacodyl 5 mg oral tablet Dose : 10 mg = 2 tab(s), Oral, qDay, PRN Constipation, with a full glass of water, X 5 day(s), # 10 tab(s), 0 Refill(s), 12/26/23 12:59:00 PM EDT Start Date: 12/21/23 Stop Date: 12/26/23 Status: Ordered ciprofloxacin 500 mg oral tablet (1 source) Quinolone Antimicrobial Start: 12-05-2023 take 1 tablet by mouth twice daily ciprofloxacin 500 mg oral tablet TAKE 1 TABLET BY MOUTH TWICE DAILY Start Date: 12/05/23 Status: Ordered docusate sodium 50 mg / sennosides, assisted 8.6 mg oral tablet (2 sources) Start: 01-03-2024 End: 02-02-2024 take 1 tablet by mouth twice daily senna-docusate (SENNA-S) 8.6-50 mg per tablet Take 1 tablet by mouth two times a day. 60 tablet 0 01/03/2024 02/02/2024 Active fluticasone propionate 0.05 mg/actuat metered dose nasal spray (6 sources) Corticosteroid Start: 11-08-2022 Fluticasone Propionate 50 mcg/actuation [place],Suspension Active 1 NMA INTRANASAL DAILY November 08, 2022 12:00am administer into each nostril Start: 11-08-2022 take 1 spray(s) nasa l route once daily Fluticasone Propionate Active 1 SPRAY INTRANASAL DAILY November 08, 2022 12:00am administer into each nostril insulin glargine 100 unt/ml injectable solution (20 sources) Insulin Analog Start: 11-22-2023 inject 1 dose by subcutaneous injection twice daily Lantus 100 units/mL10 ml vial solution Dose : 25 unit(s) =, Subcutaneous (INT), BID, 0 Refill(s) Start Date: 11/22/23 Status: Ordered Start: 11-22-2023 inject 1 dose by sub cutaneous injection once daily at bedtime Lantus 100 units/mL10 ml vial solution Dose : 16 unit(s) =, Subcutaneous (INT), qHS, 0 Refill(s) Start Date: 11/22/23 Status: Ordered Start: 06-13-2023 LANTUS SOLOSTA R U-100 INSULIN 100 unit/mL (3 mL) Inject 25 Units subcutaneously two times a day. 06/13/2023 Active Insulin Glargine-Yfgn (6 sources) Start: 11-14-2022 Insulin Glargi ne-Yfgn 100 unit/mL (3 mL) Insulin Pen Active 45 U SC TWICE A DAY November 14, 2022 12:00am Start: 11-14-2022 Insulin Glargi ne-Yfgn 100 unit/mL (3 mL) Insulin Pen Active 45 U SC TWICE A DAY November 14, 2022 12:00am Start: 11-14-2022 Insulin Glargi ne-Yfgn Active 45 UNIT SC TWICE A DAY November 13, 2022 11:00pm Start: 11-14-2022 Insulin Glargi ne-Yfgn Active 45 UNIT SC TWICE A DAY November 14, 2022 12:00am 3 ml insulin lispro 100 unt/ml pen injector (20 sources) Insulin Analog Start: 12-18-2023 HumaLOG KwikPe n 100 units/mL injectable PEN sliding scale, Subcutaneous, TID Start Date: 12/18/23 Status: Ordered Start: 11-22-2023 HumaLOG 100 un its/mL subcutaneous solution Give 0-10 units/dose, Subcutaneous, TIDAC, 0 Refill(s) Start Date: 11/22/23 Status: Ordered Start: 11-12-2023 HumaLOG KwikPe n 100 units/mL injectable PEN Dose : 5 unit(s) =, Subcutaneous, TIDAC Start Date: 11/12/23 Status: Ordered Start: 11-14-2022 Insulin Lispro (Humalog Kwikpen Insulin) 100 unit/mL Insulin Pen Active 12 U SC THREE TIMES DAILY BEFORE MEALS 15 0 November 14, 2022 12:00am inject 5 [IU] by sub cutaneous injection three times daily at mealtime insulin lispro (HUMALOG KWIKPEN INSULIN) 100 unit/mL Inject 5 Units subcutaneously three times a day with meals. Active ketotifen 0.25 mg/ml ophthalmic solution (2 sources) Histamine-1 Receptor Inhibitor Start: 11-22-2023 take 1 dose into the eye(s) every twelve hours ketotifen 0.025% ophthalmic solution Dose = 2 drop(s), Ophthalmic, q12h, 0 Refill(s) Start Date: 11/22/23 Status: Ordered levocetirizine dihydrochloride 5 mg oral tablet (3 sources) Histamine-1 Receptor Antagonist Start: 11-12-2023 Xyzal 5 mg oral tablet Dose : 5 mg = 1 tab(s), Oral, qDay Start Date: 11/12/23 Status: Ordered lisinopril 2.5 mg oral tablet (19 sources) Angiotensin Converting Enzyme Inhibitor Start: 04-12-2024 take 1 tablet by mouth once daily lisinopril 2.5 mg tablet Take 1 tablet by mouth once daily. 90 tablet 3 04/12/2024 Active metFORMIN hydrochloride 1000 mg oral tablet (20 sources) Biguanide Start: 10-16-2023 take 1 tablet by mouth twice daily Metformin 1,000 mg tablet Active 1000 mg PO TWICE A DAY October 16, 2023 12:00am take 1 tablet by mouth twice tessie ly metFORMIN ER (GLUMETZA) 1,000 mg 24 hr tablet Take 1,000 mg by mouth two times a day. Active 24 hr metoprolol succinate 25 mg extended release oral tablet (19 sources) beta-Adrenergic Ramsey Start: 04-12-2024 take 0.5 tablet by mouth once daily metoprolol succinate ER (TOPROL XL) 25 mg 24 hr tablet Take 0.5 tablets by mouth once daily. 45 tablet 3 04/12/2024 Active montelukast 10 mg oral tablet (20 sources) Leukotriene Receptor Antagonist Start: 10-16-2023 take 1 tablet by mouth once daily Montelukast 10 mg tablet Active 10 mg PO daily October 16, 2023 12:00am Multiple Vitamins oral capsule (1 source) Start: 12-18-2023 take 1 capsule by mouth once daily Multiple Vitamins oral capsule Dose = 1 cap(s), Oral, qDay Start Date: 12/18/23 Status: Ordered Multivitamin preparation (3 sources) Start: 11-14-2022 take 1 tablet by mouth once daily Multivitamin Active 1 TABLET PO DAILY November 13, 2022 11:00pm Start: 11-14-2022 take 1 tablet by pati th once daily Multivitamin Active 1 TABLET PO DAILY November 14, 2022 12:00am ondansetron 4 mg disintegrating oral tablet (20 sources) Serotonin-3 Receptor Antagonist Start: 07-09-2024 End: 07-16-2024 take 1 tablet by mouth every six hours as needed ondansetron orally disintegrating (ZOFRAN ODT) 4 mg disintegrating tablet Take 1 tablet by mouth every 6 hours as needed for nausea/vomiting for up to 7 days. 20 tablet 07/09/2024 07/16/2024 Active Start: 05-14-2024 End: 05-21-2024 take 1 tablet by mouth every six hours as needed ondansetron orally disintegrating (ZOFRAN ODT) 4 mg disintegrating tablet Take 1 tablet by mouth every 6 hours as needed for nausea/vomiting for up to 7 days. 20 tablet 05/14/2024 05/21/2024 Active Start: 04-22-2024 End: 04-29-2024 take 1 tablet by mouth every six hours as needed ondansetron orally disintegrating (ZOFRAN ODT) 4 mg disintegrating tablet Take 1 tablet by mouth every 6 hours as needed for nausea/vomiting for up to 7 days. 20 tablet 04/22/2024 04/29/2024 Active Start: 09-08-2023 take 1 tablet by pati th every eight hours as needed ondansetron orally disintegrating (ZOFRAN ODT) 4 mg disintegrating tablet Take 1 tablet by mouth every 8 hours as needed. 15 tablet 09/08/2023 Active ondansetron HCl (ZOFRAN ORAL) Take by mouth. Active oxyCODONE hydrochloride 5 mg oral tablet (20 sources) Opioid Agonist Start: 07-10-2024 End: 07-15-2024 take 1 tablet by mouth every six hours as needed for pain oxyCODONE IR (ROXICODONE) 5 mg immediate release tablet Indications: Chronic pancreatitis, unspecified pancreatitis type (HCC) Take 1 tablet by mouth every 6 hours as needed for pain for up to 5 days. 20 tablet 07/10/2024 07/15/2024 Active Start: 06-11-2024 End: 06-18-2024 take 1 tablet by mouth every six hours as needed for pain oxyCODONE IR (ROXICODONE) 5 mg immediate release tablet Indications: Chronic pancreatitis, unspecified pancreatitis type (HCC) Take 1 tablet by mouth every 6 hours as needed for pain for up to 7 days. 28 tablet 06/11/2024 06/18/2024 Active Start: 05-14-2024 End: 05-18-2024 take 1 tablet by mouth three times daily oxyCODONE IR (ROXICODONE) 10 mg tab Indications: Chronic alcoholic pancreatitis (HCC) Take 1 tablet by mouth three times a day for 4 days. 12 tablet 05/14/2024 05/18/2024 Active Start: 05-08-2024 End: 05-10-2024 take 1 tablet by mouth every eight hours as needed for pain oxyCODONE IR (ROXICODONE) 10 mg tab Indications: Alcohol-induced chronic pancreatitis (HCC) Take 1 tablet by mouth every 8 hours as needed for pain for up to 2 days. 6 tablet 05/08/2024 05/10/2024 Active Start: 04-22-2024 End: 04-25-2024 take 1 tablet by mouth every six hours as needed for pain oxyCODONE IR (ROXICODONE) 10 mg tab Indications: Acute on chronic pancreatitis (HCC) Take 1 tablet by mouth every 6 hours as needed for pain for up to 3 days. 12 tablet 04/22/2024 04/25/2024 Active Start: 03-22-2024 End: 03-25-2024 take 1 tablet by mouth every six hours as needed for pain oxyCODONE IR (ROXICODONE) 5 mg immediate release tablet Indications: Dog bite of multiple sites Take 1 tablet by mouth every 6 hours as needed for pain for up to 3 days. 12 tablet 03/22/2024 03/25/2024 Active Start: 03-08-2024 End: 03-15-2024 take 1 tablet by mouth every six hours as needed for pain oxyCODONE IR (ROXICODONE) 5 mg immediate release tablet Indications: Chronic pancreatitis, unspecified pancreatitis type (HCC) Take 1 tablet by mouth every 6 hours as needed for pain for up to 7 days. 28 tablet 03/08/2024 03/15/2024 Active Start: 12-21-2023 End: 12-23-2023 oxyCODONE 5 mg oral tablet ( IMMEDIATE release ) Dose : 5 mg = 1 tab(s), Oral, q4h, PRN Pain, scale 4-10, X 2 day(s), # 7 tab(s), 0 Refill(s), 12/23/23 2:52:00 PM EDT, Pharmacy: [id number], Chronic pancreatitis due to chronic alcoholism, 185.4, cm, 12/19/23 5:12:00 EDT, Height, 100, kg, 12/19/23 5:12:00 EDT, Dosing Weight Start Date: 12/21/23 Stop Date: 12/23/23 Status: Ordered Start: 11-14-2022 End: 10-16-2023 take 1 tablet by mouth every twelve hours as needed for pain Oxycodone 5 mg Tablet Discontinued 5 mg PO Q12H as needed for pain (scale score 7-10) 6 3 0 November 14, 2022 October 16, 2023 9:44am Fracture of rib of left side Fracture of transverse process of lumbar vertebra Fracture of one rib, left side, initial encounter for closed fracture Start: 11-14-2022 End: 10-16-2023 take 1 capsule by mouth every six hours as needed for pain Oxycodone 5 mg capsule Discontinued 5 mg PO EVERY 6 HOURS as needed for pain 10 3 0 November 14, 2022 October 16, 2023 9:45am History of fracture of rib Personal history of (healed) traumatic fracture Pen Needle, Diabetic (3 sources) Start: 11-14-2022 Pen Needle, Di abetic Active 0 .Route November 13, 2022 11:00pm As directed Start: 11-14-2022 Pen Needle, Di abetic Active 0 .Route November 14, 2022 12:00am As directed polyethylene glycol 3350 89661 mg powder for oral solution (2 sources) Osmotic Laxative Start: 01-04-2024 End: 02-03-2024 polyethylene glycol 3350 17 gram packet Take 1 Packet by mouth once daily. Dissolve dose in 4 - 8 ounces of liquid and take as directed. 30 Packet 0 01/04/2024 02/03/2024 Active rosuvastatin calcium 40 mg oral tablet (20 sources) HMG-CoA Reductase Inhibitor Start: 11-08-2022 take 1 tablet by mouth once daily Rosuvastatin 40 mg Tablet Active 40 mg PO DAILY November 08, 2022 12:00am sertraline 50 mg oral tablet (20 sources) Serotonin Reuptake Inhibitor Start: 11-08-2022 take 1 tablet by mouth once daily Sertraline 50 mg Tablet Active 50 mg PO DAILY November 08, 2022 12:00am thiamine 100 mg oral tablet (20 sources) Start: 03-08-2024 take 1 tablet by mouth once daily thiamine (VITAMIN B1) 100 mg tablet Take 1 tablet by mouth once daily. 30 tablet 2 03/08/2024 Active traZODone hydrochloride 100 mg oral tablet (20 sources) Serotonin Reuptake Inhibitor Start: 11-12-2023 traZODone 100 mg oral tablet Dose : 100 mg = 1 tab(s), Oral, qHS Start Date: 11/12/23 Status: Ordered Start: 11-08-2022 take 1 tablet by mouth at bedt honey Trazodone 50 mg Tablet Active 50 mg PO AT BEDTIME November 08, 2022 12:00am Completed/Discontinued Medications Medication Drug Class(es) Dates Sig (Normalized) Sig (Original) 0.25 MG, 0.5 MG Dose 3 ML semaglutide 0.68 MG/ML Pen Injector (2 sources) Start: 12-05-2023 inject 0.5 mg by subcutaneous injection every week semaglutide 2 mg/3 mL (0.25 mg or 0.5 mg dose) subcutaneous solution Dose : 0.25 mg =, Subcutaneous, qWeek, rotate injection sites, # 1 EA, 0 Refill(s), generic OZEMPIC Start Date: 12/05/23 Status: Ordered calcium chloride 0.0014 meq/ml / potassium chloride 0.004 meq/ml / sodium chloride 0.103 meq/ml / sodium lactate 0.028 meq/ml injectable solution (1 source) Start: 02-15-2024 End: 02-15-2024 take 5-30 mL intravenously every hour 5-30 mL/hr, INTRAVENOUS, CONTINUOUS, Starting on Doris 02/15/24 at 1000, Until Doris 02/15/24 at 1103, Preprocedure cyclobenzaprine hydrochloride 10 mg oral tablet (6 sources) Muscle Relaxant Start: 12-07-2022 End: 10-16-2023 take 1 tablet by mouth at bedtime as needed for muscle spasms Cyclobenzaprine 10 mg tablet Discontinued 10 mg PO AT BEDTIME NEEDED as needed for Muscle Spasm 10 0 December 07, 2022 12:35am October 16, 2023 9:45am Lovenox (2 sources) Low Molecular Weight Heparin Start: 11-22-2023 inject 0.4 mL by subcutaneous injection once daily Lovenox Dose : 40 mg = 0.4 mL, Subcutaneous, qDay, 0 Refill(s) Start Date: 11/22/23 Status: Ordered ergocalciferol 1.25 mg oral capsule (13 sources) Provitamin D2 Compound Start: 03-08-2024 End: 04-12-2024 take 1 capsule by mouth every week ergocalciferol 50,000 unit capsule (VITAMIN D2, DRISDOL) Take 1 capsule by mouth one time a week. 8 capsule 03/08/2024 04/12/2024 Discontinued (Course of therapy completed) 2 ml gentamicin 40 mg/ml injection (2 sources) Start: 02-09-2024 End: 02-09-2024 gentamicin 40 mg/mL 160 mg injection Start: 02-09-2024 End: 02-09-2024 gentamicin 40 mg/mL 160 mg i njection ibuprofen 600 mg oral tablet (6 sources) Nonsteroidal Anti-inflammatory Drug Start: 11-14-2022 End: 10-16-2023 take 1 tablet by mouth every eight hours as needed for pain Ibuprofen 600 mg Tablet Discontinued 600 mg PO EVERY 8 HOURS NEEDED as needed for PAIN 1-10 0 0 November 14, 2022 12:00am October 16, 2023 9:45am Insulin Nph And Regular Human (6 sources) Insulin Start: 11-08-2022 End: 11-14-2022 Insulin Nph And Regular Human (Novolin 70-30 Flexpen U-100) 100 unit/mL (70-30) Insulin Pen Discontinued 40 U SC TWICE A DAY November 08, 2022 12:00am November 14, 2022 8:58am Start: 11-08-2022 End: 11-14-2022 Insulin Nph And Regular Geovanna n (Novolin 70-30 Flexpen U-100) 100 unit/mL (70-30) Insulin Pen Discontinued 40 UNIT SC TWICE A DAY November 07, 2022 11:00pm November 14, 2022 7:58am Start: 11-08-2022 End: 11-14-2022 Insulin Nph And Regular Geovanna n (Novolin 70-30 Flexpen U-100) 100 unit/mL (70-30) Insulin Pen Discontinued 40 UNIT SC TWICE A DAY November 08, 2022 12:00am November 14, 2022 8:58am levoFLOXacin 750 mg oral tablet (20 sources) Quinolone Antimicrobial Start: 01-12-2024 End: 04-12-2024 take 1 tablet by mouth once daily, then take 1 tablet by mouth every two hours levoFLOXacin (LEVAQUIN) 750 mg tablet One po daily for 3 days,first dose 2 hours prior procedure 3 tablet 01/12/2024 04/12/2024 Discontinued (Course of therapy completed) Lidocaine (4 sources) Antiarrhythmic, Amide Local Anesthetic Start: 02-09-2024 End: 02-09-2024 lidocaine 10 mg/mL (1 %) 100 mg injection (XYLOCAINE) Start: 01-12-2024 End: 01-12-2024 lidocaine urojet 2 % 11 mL t opical gel (GLYDO) loratadine 10 mg oral tablet (20 sources) Start: 11-08-2022 End: 10-16-2023 take 1 tablet by mouth once daily Loratadine 10 mg Tablet Discontinued 10 mg PO DAILY November 08, 2022 12:00am October 16, 2023 9:44am Multivitamin tablet (3 sources) Start: 11-14-2022 End: 10-16-2023 Multivitamin tablet Discontinued 1 {tbl} PO DAILY November 14, 2022 12:00am October 16, 2023 9:45am Start: 11-14-2022 End: 10-16-2023 Multivitamin tablet Disconti nued 1 {tbl} PO DAILY November 14, 2022 12:00am October 16, 2023 9:45am Zosyn (2 sources) Penicillin-class Antibacterial, beta Lactamase Inhibitor Start: 11-22-2023 Zosyn Dose : 3.375 gram(s) = 50 mL, IV Piggyback, q8hr, 0 Refill(s), 102.5 Start Date: 11/22/23 Status: Ordered semaglutide (OZEMPIC) 0.25 mg or 0.5 mg (2 mg/3 mL) pen (20 sources) Start: 12-05-2023 End: 04-12-2024 inject 0.5 mg by subcutaneous injection every week semaglutide (OZEMPIC) 0.25 mg or 0.5 mg (2 mg/3 mL) pen Inject 0.5 mg subcutaneously one time a week. 12/05/2023 04/12/2024 Discontinued (Course of therapy completed) Start: 12-05-2023 inject 0.5 mg by sub cutaneous injection every week semaglutide (OZEMPIC) 0.25 mg or 0.5 mg (2 mg/3 mL) pen Inject 0.5 mg subcutaneously one time a week. 12/05/2023 Active Start: 12-05-2023 inject 0.5 mg by sub cutaneous injection every week semaglutide (OZEMPIC) 0.25 mg or 0.5 mg (2 mg/3 mL) pen Inject 0.5 mg subcutaneously one time a week. 0 12/05/2023 Active tamsulosin hydrochloride 0.4 mg oral capsule (20 sources) alpha-Adrenergic Ramsey Start: 11-08-2022 End: 10-16-2023 take 1 capsule by mouth once daily Tamsulosin 0.4 mg Capsule Discontinued 0.4 mg PO DAILY November 08, 2022 12:00am October 16, 2023 9:45am warfarin sodium 5 mg oral tablet (6 sources) Vitamin K Antagonist Start: 11-08-2022 End: 11-14-2022 take 1 tablet by mouth once daily Warfarin 5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 [id number] [place] [address] [place] Hemoglobin (Bld) [Mass/Vol] 13.7 g/dL Normal 13.0-17.0 [facility] Comment on above: Order Comment: Speci men Type: BLOOD SPECIMENOrdering Facility: [facility] Address: [address] [place] [address] Performed By: #### 5 8410-2 ####[facility] [id number] [place] [address] [place] MCH (RBC) [Entitic mass] 30.9 pg Normal 26.0-34.0 [facility] Comment on above: Order Comment: Speci men Type: BLOOD SPECIMENOrdering Facility: [facility] Address: [address] [place] [address] Performed By: #### 5 8410-2 ####[facility] [id number] [address] [place] [facility] MCHC (RBC) [Mass/Vol] 32.6 g/dL Normal 30.5-36.0 [facility] Comment on above: Order Comment: Speci men Type: BLOOD SPECIMENOrdering Facility: [facility] Address: [address] [place] [address] Performed By: #### 5 8410-2 ####[facility] [id number] [address] [place] MCV (RBC) [Entitic vol] 94.8 fL Normal 80.0-100.0 [facility] Comment on above: Order Comment: Speci men Type: BLOOD SPECIMENOrdering Facility: [facility] Address: [address] [place] [address] Performed By: #### 5 8410-2 ####[facility] [id number] [address] [place] Nucleated RBC (Bld) [#/Vol] 10*3/uL Normal <0.01 [facility] Comment on above: Order Comment: Speci men Type: BLOOD SPECIMENOrdering Facility: [facility] Address: [address] [place] [address] Performed By: #### 5 8410-2 ####[facility] [id number] [address] [place] Platelet mean volume (Bld) [Entitic vol] 10.7 fL Normal 9.0-12.7 [facility] Comment on above: Order Comment: Speci men Type: BLOOD SPECIMENOrdering Facility: [facility] Address: [address] [place] [address] Performed By: #### 5 8410-2 ####[facility] [id number] [place] [address] [place] Platelets (Bld) [#/Vol] 198 10*3/uL Normal 150-400 [facility] Comment on above: Order Comment: Speci men Type: BLOOD SPECIMENOrdering Facility: [facility] Address: [address] [place] [address] Performed By: #### 5 8410-2 ####[facility] [id number] [place] [address] [place] RBC (Bld) [#/Vol] 4.43 10*6/uL Normal 4.20-6.00 [facility] Comment on above: Order Comment: Speci men Type: BLOOD SPECIMENOrdering Facility: [facility] Address: [address] [place] [address] Performed By: #### 5 8410-2 ####[facility] [id number] [place] [address] [place] [facility] WBC (Bld) [#/Vol] 9.49 10*3/uL Normal 3.70-11.00 [facility] Comment on above: Order Comment: Speci men Type: BLOOD SPECIMENOrdering Facility: [facility] Address: [address] [place] [address] Performed By: #### 5 8410-2 ####[facility] [id number] [place] [address] [facility] CT BRAIN WO IVCONon 01-20-20 CT BRAIN WO IVCON * * *Final Report* * * DATE OF EXAM: Jan 19 2025 6:26PM [facility] [place] IV[place] / PROCEDURE REASON: Headache, sudden, severe * * * * Physician Interpretation * * * * EXAMINATION: CT BRAIN WO IVCON CLINICAL HISTORY: Headache TECHNIQUE: Serial axial images without IV contrast were obtained from the vertex to the foramen magnum. MQ: CTBWO_3 CT Radiation dose: Integrated Dose-Length Product (DLP) for this visit = 791.8 mGy*cm CT Dose Reduction Employed: Automated exposure control(AEC) and iterative recon COMPARISON: None. RESULT: Post-operative change: None. Acute change: No evidence of an acute infarct or other acute parenchymal process. Hemorrhage: No evidence of acute intracranial hemorrhage. ECASS hemorrhagic transformation score: Not Applicable Mass Lesion / Mass Effect: There is no evidence of an intracranial mass or extraaxial fluid collection. No significant mass effect. Chronic change: Scattered patchy foci of low attenuation are present within the supratentorial white matter, a nonspecific finding that most commonly represents mild small vessel disease. Parenchyma: There is mild generalized volume loss. The brain parenchyma is otherwise within normal limits for age. Ventricles: The ventricles are within normal limits of size and configuration for age. Paranasal sinuses and skull base: Mucosal thickening involving the maxillary sinuses left greater than right and ethmoid air cells. The skull base and imaged soft tissues are unremarkable. Localizer images: No significant findings. IMPRESSION: Mild age-related changes with no acute intracranial process. Sinus inflammatory disease. Collating Machine Operator: ARMINDA Transcribe Date/Time: Jan 19 2025 7:50P Dictated by : JOZEF YANEZ MD This examination was interpreted and the report reviewed and electronically signed by: JOZEF YANEZ MD on Jan 19 2025 7:53PM EST [id number] Normal [facility] Comprehensive metabolic 2000 panelon 01-19-2025 Albumin [Mass/Vol] 4.2 g/dL Normal 3.9-4.9 [facility] Comment on above: Order Comment: Davis at[place] Type: BLOOD SPECIMENOrdering Facility: [facility] Address: [address] [place] [address] Performed By: #### 2 4323-8 ####[facility] [id number] [place] [address] [place] ALP [Catalytic activity/Vol] 102 U/L Normal 38-113 [facility] Comment on above: Order Comment: Davis atkinson Type: BLOOD SPECIMENOrdering Facility: [facility] Address: [address] [place] [address] Performed By: #### 2 4323-8 ####[facility] [id number] [place] [address] [place] ALT [Catalytic activity/Vol] 79 U/L High 10-54 [facility] Comment on above: Order Comment: Speci men Type: BLOOD SPECIMENOrdering Facility: [facility] Address: [address] [place] [address] Performed By: #### 2 4323-8 ####[facility] [id number] [place] [address] [place] Anion gap [Moles/Vol] 14 mmol/L Normal 8-15 [facility] Comment on above: Order Comment: Speci men Type: BLOOD SPECIMENOrdering Facility: [facility] Address: [address] [place] [address] Performed By: #### 2 4323-8 ####[facility] [id number] [place] [address] [place] AST [Catalytic activity/Vol] 45 U/L High 14-40 [facility] Comment on above: Order Comment: Speci men Type: BLOOD SPECIMENOrdering Facility: [facility] Address: [address] [place] [address] Performed By: #### 2 4323-8 ####[facility] [id number] [place] [address] [place] Bilirubin [Mass/Vol] 0.3 mg/dL Normal 0.2-1.[address] [facility] [place] Comment on above: Order Comment: Speci men Type: BLOOD SPECIMENOrdering Facility: [facility] Address: [address] [place] [address] Performed By: #### 2 4323-8 ####[facility] [id number] [place] [address] [place] Calcium [Mass/Vol] 9.6 mg/dL Normal 8.5-10.2 [facility] Comment on above: Order Comment: Speci men Type: BLOOD SPECIMENOrdering Facility: [facility] Address: [address] [place] [address] Performed By: #### 2 4323-8 ####[facility] [id number] [place] [address] [place] Chloride [Moles/Vol] 103 mmol/L Normal 98-[address] [facility] Comment on above: Order Comment: Speci men Type: BLOOD SPECIMENOrdering Facility: [facility] Address: [address] [place] [address] Performed By: #### 2 4323-8 ####[facility] [id number] [place] [address] [place] CO2 [Moles/Vol] 23 mmol/L Normal 22-30 [facility] Comment on above: Order Comment: Speci men Type: BLOOD SPECIMENOrdering Facility: [facility] Address: [address] [place] [address] Performed By: #### 2 4323-8 ####[facility] [id number] [place] [address] [place] Creatinine [Mass/Vol] 0.84 mg/dL Normal 0.73-1.22 [facility] Comment on above: Order Comment: Speci men Type: BLOOD SPECIMENOrdering Facility: [facility] Address: [address] [place] [address] Performed By: #### 2 4323-8 ####[facility] [id number] [place] [address] [place] eGFRcr SerPlBld CKD-EPI 2020 96 mL/min/1.73m??? Normal >=60 [facility] Comment on above: Order Comment: Speci men Type: BLOOD SPECIMENOrdering Facility: [facility] Address: [address] [place] [address] Result Comment: Genny mated Glomerular Filtration Rate (eGFR) is calculated using the 2020 CKD-EPI creatinine equation. This equation utilizes serum creatinine, sex, and age as parameters. The creatinine assay has traceable calibration to isotope dilution-mass spectrometry. Refer to KDIGO guidelines for clinical interpretation. In patients with unstable renal function, e.g. those with acute kidney injury, the eGFR may not accurately reflect actual GFR. Performed By: #### 2 4323-8 ####[facility] [id number] [place] [address] [place] Glucose [Mass/Vol] 191 mg/dL High 74-99 [facility] Comment on above: Order Comment: Speci china Type: BLOOD SPECIMENOrdering Facility: [facility] Address: [address] [place], [place] [id number] Result Comment: The [place] [employer] (ADA) provides guidance for cutoff values for fasting glucose and random glucose. The ADA defines fasting as no caloric intake for at least 8 hours. Fasting plasma glucose results between 100 to 125 mg/dL indicate increased risk for diabetes (prediabetes). Fasting plasma glucose results greater than or equal to 126 mg/dL meet the criteria for diagnosis of diabetes. In the absence of unequivocal hyperglycemia, results should be confirmed by repeat testing. In a patient with classic symptoms of hyperglycemia or hyperglycemic crisis, random plasma glucose results greater than or equal to 200 mg/dL meet the criteria for diagnosis of diabetes. Reference: Standards of Medical Care in Diabetes 2016, [place] [employer] Association. Diabetes Care. 2016.39(Suppl 1). Performed By: #### 2 4323-8 ####[facility] [id number] [place] [address] [place] Potassium [Moles/Vol] 4.3 mmol/L Normal 3.7-5.1 [facility] Comment on above: Order Comment: [place] at[place] Type: BLOOD SPECIMENOrdering Facility: [facility] Address: [address] [place] [address] Performed By: #### 2 4323-8 ####[facility] [id number] [place] [address] [place] Protein [Mass/Vol] 7.1 g/dL Normal 6.3-8.0 [facility] Comment on above: Order Comment: Zenai men Type: BLOOD SPECIMENOrdering Facility: [facility] Address: [address] [place], [place] [address] Performed By: #### 2 4323-8 ####[facility] [id number] [place] [address] [place] Sodium [Moles/Vol] 140 mmol/L Normal 136-144 [facility] Comment on above: Order Comment: Speci men Type: BLOOD SPECIMENOrdering Facility: [facility] Address: [address] [place] [address] Performed By: #### 2 4323-8 ####[facility] [id number] [place] [address] [facility] Urea nitrogen [Mass/Vol] 11 mg/dL Normal 9- [facility] Comment on above: Order Comment: Speci men Type: BLOOD SPECIMENOrdering Facility: [facility] Address: [address] [place], [place] [address] Performed By: #### 2 4323-8 ####[facility] [id number] [place] [address] [place] ECG COMPLETEon 01-19-2025 ECG COMPLETE Ventricular Rate : 7 1 BPM Atrial Rate : 71 BPM P-R Interval : 170 ms QRS Duration : 88 ms Q-T Interval : 402 ms QTC Calculation(Bazett) : 436 ms Calculated P [place] : 47 degrees Calculated R [place] : -3 degrees Calculated T [place] : 30 degrees Normal sinus rhythm Normal ECG When compared with ECG of 14-May-2024 13:52, No significant change was found Confirmed by CHUCKIE BURNS MD ([id number]) on 01/19/2025 6:50:54 PM NAME : KYLE MCDANIEL PID : [id number] : 1960 Gender : Male Race : ORD : [id number] Procedure Date : Jan 19 2025 18:48:22 Edit Date : Jan 19 2025 18:50:55 Diagnosis: Normal sinus rhythm Normal ECG When compared with ECG of 14-May-2024 13:52, No significant change was found Confirmed by CHUCKIE BURNS MD ([id number]) on 01/19/2025 6:50:54 PM Test Reason : HCS Location : 3 : ED ED Overread By : CHUCKIE BURNS MD Edited By : CHUCKIE BURNS MD Referred By : , Acquired by : , [facility] ED NOTEon 01-19-2025 ED NOTE HNO ID: [id number] Author: OPAL SCHWARTZ CT Service: ? Author Type: Clinical Reimbursement Director Type: ED Notes Filed: 01/19/2025 18:20 Note Text: Emily from [facility] in [place] calls to check on patient. Advised we are still waiting for results to come back. Emily's call back number is [phone] or [phone] if we need anything. Opal Schwartz, CT [facility] ED NOTE HNO ID: [id number] Author: DL DORSEY, RN Service: ? Author Type: Registered Nurse Type: ED Notes Filed: 01/19/2025 18:11 Note Text: Patient presents to the ER with c/o several things. The patient is in rehab for ETOH. The patient has diabetes and takes insulin. The patient c/o headaches for 10-20 years. He also c/o "passing out" for 6-7 months. He c/o nausea after eating for [facility] ED NOTE HNO ID: [id number] Author: DL DORSEY, PATSY Service: ? Author Type: Registered Nurse Type: ED Notes Filed: 01/19/2025 17:59 Note Text: Dr Burns at bedside [facility] ED PROV NOTEon 01-19-2025 ED PROV NOTE HNO ID: [id number] Author: CHUCKIE BURNS MD Service: ? Author Type: Physician Type: ED Provider Notes Filed: 01/19/2025 20:07 Note Text: ED Provider Note Patient Name: Kyle Mcdaniel : 1960 SERVICE DATE: 01/19/25 History Patient presents with: Low Blood Sugar: Pt states his "blood sugar has been all over the place" Syncope: "For a while, he just passes out for a few minutes then wakes up" Headache Rhinitis Abdominal Pain 64-year-old male presents with several complaints. Patient is at a rehab facility at the present time. Over the past week, it has been noted that his blood sugars have been fluctuating going high and then going low. There has been no change of his medications recently and he states that he has been eating normally. While he has been at the rehab facility he is also noted a constant headache for the past week. He has been dealing with headaches intermittently for about 10 years. Typically, the headaches start on their own and go away. He has had a constant headache now though for the past week. It has not been associate any kind of fall or injury. No blurred vision, double vision or loss of vision. No fever or stiff neck. No other weakness, numbness or ting of the arms or legs. At the rehab facility he has had episodes where he would get lightheaded, weak and then passed out. He has had several over the past week. Patient however states that he has had this off and on now for about 6 months. He has been seen by his family physician, workup has been done but no cause of the symptoms could be found. States that he has been eating and drinking normally. He has had no vomiting or diarrhea at the recent time. He has not seen any blood in the stools or dark stools. No other fever or chills. No urinary symptoms. He never has any chest pain or palpitations prior to or out or after the onset of the syncopal episodes. He never has any loss of bowel or bladder control. PAST MEDICAL HISTORY Diagnosis Date Alcohol abuse CHF (congestive heart failure) (HCC) Diabetes mellitus (HCC) Hx of chronic pancreatitis Hyperlipemia TIA (transient ischemic attack) PAST SURGICAL HISTORY Procedure Laterality Date ABDOMINAL SURGERY HX No family history on file. Social History Tobacco Use Smoking status: Every Day Current packs/day: 1.00 Average packs/day: 1 pack/day for 20.0 years (20.0 ttl pk-yrs) Types: Cigarettes Smokeless tobacco: Former Types: Snuff Tobacco comments: As per pt "I smoke 12-15 smokes a day, but when I drink I know its way more." Vaping Use Vaping status: Never Used Substance and Sexual Activity Alcohol use: Yes Comment: 1 pint liquor per week, depends on weeks Drug use: Never Sexual activity: Yes Partners: Female ALLERGIES Allergen Reactions Azithromycin Hives Erythromycin Hives Tylenol [Acetaminop* Hives Review of Systems All other systems reviewed and are negative. Physical Exam Vitals [01/19/25 1737] BP Pulse Temp Temp src Resp SpO2 Weight Height 116/75 72 37.1 ?C (98.7 ?F) Oral 20 98 % 99.8 kg (220 lb) 1.854 m (6' 1") Physical Exam Vitals (Stable vital signs blood pressure at 116 with a pulse 72. Respiratory rate of 20 and a temp of 37.1.) and nursing note reviewed. Constitutional: Appearance: He is well-developed. Comments: 64-year-old male well-developed, well-nourished he is nontoxic-appearing resting comfortably in the room. He is awake and alert to person, place and time HENT: Head: Normocephalic and atraumatic. Right Ear: External ear normal. Left Ear: External ear normal. Nose: Nose normal. Eyes: Conjunctiva/sclera: Conjunctivae normal. Pupils: Pupils are equal, round, and reactive to light. Neck: Thyroid: No thyromegaly. Trachea: No tracheal deviation. Cardiovascular: Rate and Rhythm: Normal rate and regular rhythm. Heart sounds: No murmur heard. No friction rub. No gallop. Pulmonary: Effort: Pulmonary effort is normal. No respiratory distress. Breath sounds: Normal breath sounds. Abdominal: General: Bowel sounds are normal. There is no distension. Palpations: Abdomen is soft. There is no mass. Tenderness: There is no abdominal tenderness. There is no guarding or rebound. Musculoskeletal: General: No tenderness. Normal range of motion. Cervical back: Normal range of motion and neck supple. Skin: General: Skin is warm and dry. Coloration: Skin is not pale. Findings: No rash. Neurological: General: No focal deficit present. Mental Status: He is alert and oriented to person, place, and time. Deep Tendon Reflexes: Reflexes are normal and symmetric. Psychiatric: Behavior: Behavior normal. Thought Content: Thought content normal. Judgment: Judgment normal. Diagnostic Testing ED Labs Ordered and Reviewed GLUCOSE, BLOOD (POC) - Abnormal; Notable for the following components: Result Value Ref Range Glucose, Point of Care (more content not included)... Normal [facility] Urinalysis complete panel (U )on 01-19-2025 Bilirubin Ql (U) Negative Normal Negative [facility] Comment on above: Order Comment: Speci men Type: URINE SPECIMEN Ordering Facility: [facility] Address: [address] [place] [address] Performed By: #### 2 4356-8 #### [facility] CLIA [id number] [address] [place] [address] [place] Clarity (Unsp spec) Clear Normal Clear [facility] Comment on above: Order Comment: Speci men Type: URINE SPECIMEN Ordering Facility: [facility] Address: [address] [place] [address] Performed By: #### 2 4356-8 #### [facility] CLIA [id number] [address] [place] [address] [place] Color (U) Yellow Normal Yellow [facility] Comment on above: Order Comment: Speci men Type: URINE SPECIMEN Ordering Facility: [facility] Address: [address] [place] [address] Performed By: #### 2 4356-8 #### [facility] CLIA [id number] [address] [place] [address] [place] Glucose Test strip (U) [Mass/Vol] Negative Normal Negative [facility] Comment on above: Order Comment: Speci men Type: URINE SPECIMEN Ordering Facility: [facility] Address: [address] [place] [address] Performed By: #### 2 4356-8 #### [facility] CLIA [id number] [address] [place] [address] [place] Hemoglobin Ql (U) Negative Normal Negative [facility] Comment on above: Order Comment: Speci men Type: URINE SPECIMEN Ordering Facility: [facility] Address: [address] [place] [address] Performed By: #### 2 4356-8 #### [facility] CLIA [id number] [address] [place] [address] [place] Ketones Ql (U) Negative Normal Negative [facility] Comment on above: Order Comment: Speci men Type: URINE SPECIMEN Ordering Facility: [facility] Address: [address] [place] [address] Performed By: #### 2 4356-8 #### [facility] CLIA [id number] [address] [place] [address] [place] Leukocyte esterase Test strip Ql (U) Negative Normal Negative [facility] Comment on above: Order Comment: Speci men Type: URINE SPECIMEN Ordering Facility: [facility] Address: [address] [place] [address] Performed By: #### 2 4356-8 #### [facility] CLIA [id number] [address] [place] [address] [place] Nitrite Ql (U) Negative Normal Negative [facility] [facility] Comment on above: Order Comment: Speci men Type: URINE SPECIMEN Ordering Facility: [facility] Address: [address] [place] [address] Performed By: #### 2 4356-8 #### [facility] CLIA [id number] [address] [place] [address] [place] pH (U) 6.0 [pH] Normal 5.0-8.0 [facility] Comment on above: Order Comment: Speci men Type: URINE SPECIMEN Ordering Facility: [facility] Address: [address] [place] [address] Performed By: #### 2 4356-8 #### [facility] CLIA [id number] [address] [place] [address] [place] Protein (U) [Mass/Vol] Negative Normal Negative [facility] Comment on above: Order Comment: Speci men Type: URINE SPECIMEN Ordering Facility: [facility] Address: [address] [place] [address] Performed By: #### 2 4356-8 #### [facility] CLIA [id number] [address] [place] [address] [place] RBC LM.HPF (Urine sed) [#/Area] 0-3 /HPF Normal 0-3 /HPF [facility] Comment on above: Order Comment: Speci men Type: URINE SPECIMEN Ordering Facility: [facility] Address: [address] [place] [address] Performed By: #### 2 4356-8 #### [facility] CLIA [id number] [address] [place] [address] [place] Specific gravity (U) [Rel density] 1.020 Normal 1.005-1.030 [facility] Comment on above: Order Comment: Speci men Type: URINE SPECIMEN Ordering Facility: [facility] Address: [address] [place] [address] Performed By: #### 2 4356-8 #### [facility] CLIA [id number] [address] [place] [address] [place] Urobilinogen Ql (U) 0.2 EU/dL Normal 0.2-1.0 EU/dL [facility] Comment on above: Order Comment: Speci men Type: URINE SPECIMEN Ordering Facility: [facility] Address: [address] [place] [address] Performed By: #### 2 4356-8 #### [facility] CLIA [id number] [address] [place] [address] [place] WBC LM.HPF (Urine sed) [#/Area] 0-5 /HPF Normal 0-5 /HPF [facility] Comment on above: Order Comment: Speci men Type: URINE SPECIMEN Ordering Facility: [facility] Address: [address] [place] [address] Performed By: #### 2 4356-8 #### [facility] CLIA [id number] [address] [place] [address] [place] HBSABon 01-14-2025 HBSAB 4.2 mIU/mL Normal <10 [facility] Comment on above: Result Comment: Refe rence Range: < 10 mIU/ml - Nonreactive. Indicates that antibodies to HBsAg were not detected or are below the protective level for immunity. >/= 10 mIU/mL - Reactive. Indicates that antibodies to HBsAg were detected. In vaccinated individuals this usually indicates a protective level of immunity. Performed By: #### H EPBSAG, HEPC, VITD, HBSAB #### [facility] [place] [address] HBSAGon 01-14-2025 HBSAG Non-Reactive Normal Nonreactive [facility] Comment on above: Performed By: #### H EPBSAG, HEPC, VITD, HBSAB #### [facility] [address] [address] HEP Con 01-14-2025 HEP C Reactive Abnormal Nonreactive [facility] Comment on above: Result Comment: RESU LTS RECHECKED RESULTS REVIEWED Confirmatory testing (HEP C RNA,PCR QUANT) to follow. Performed By: #### H EPBSAG, HEPC, VITD, HBSAB #### [facility] [address] [address] VITAMIN D, 25 HYDROXYon - VITAMIN D, 25 HYDROXY 37.52 ng/mL Normal 30-100 [facility] Comment on above: Performed By: #### H EPBSAG, HEPC, VITD, HBSAB #### [facility] [address] [address] CNPNon 11-08-2024 CNPN Telephone (AGGENS3) KYLE MCDANIEL ([id number]) 1960 M Date Time Provider Department 11/08/24 TRACEY BROWN AGG3 During your visit today, we recorded the following information about you: Tracey Brown APRN.CNP 11/08/2024 10:52 AM Signed Patient is not scheduled for surgery nor has upcoming appts with surgery staff. Will remove from call list. -Tracey Brown APRN.CNP Allergies As of Date: 11/08/2024 Noted Allergy Reaction AZITHROMYCIN 11/08/2022 4 - Hives ERYTHROMYCIN 01/04/2023 4 - Hives TYLENOL (ACETAMINOPHEN) 12/30/2023 4 - Hives Date Reviewed: 07/10/2024 Reviewed by: Evans Mccloud MD - Fully Assessed Reason for Visit: Patient Update [1234] Prescriptions as of 11/08/2024 - xnexff-cnelvqqt-huydbja (CREON 12) 12,000-38,000 -60,000 unit delayed release capsule Take 1 capsule by mouth with meals and at bedtime. - metoprolol succinate ER (TOPROL XL) 25 mg 24 hr tablet Take 0.5 tablets by mouth once daily. - lisinopril 2.5 mg tablet Take 1 tablet by mouth once daily. - ondansetron HCl (ZOFRAN ORAL) Take by mouth. - thiamine (VITAMIN B1) 100 mg tablet Take 1 tablet by mouth once daily. - insulin lispro (HUMALOG KWIKPEN INSULIN) 100 unit/mL Inject 5 Units subcutaneously three times a day with meals. - aspirin, enteric coated (ASPIRIN, ENTERIC COATED) 81 mg EC tablet Take 81 mg by mouth once daily. - traZODone (DESYREL) 100 mg tablet Take 100 mg by mouth daily at bedtime. - thiamine (VITAMIN B1) 100 mg tablet Take 100 mg by mouth once daily. - tamsulosin (FLOMAX) 0.4 mg Take 0.4 mg by mouth once daily. - rosuvastatin (CRESTOR) 40 mg tablet Take 40 mg by mouth once daily. - metFORMIN ER (GLUMETZA) 1,000 mg 24 hr tablet Take 1,000 mg by mouth two times a day. - sertraline (ZOLOFT) 50 mg tablet Take 50 mg by mouth once daily. - montelukast (SINGULAIR) 10 mg tablet Take 10 mg by mouth daily at bedtime. - LORATADINE ORAL Take 10 mg by mouth once daily. - LANTUS SOLOSTAR U-100 INSULIN 100 unit/mL (3 mL) Inject 25 Units subcutaneously two times a day. Problem List As Of Date 11/08/2024 Noted Resolved Chronic alcoholic pancreatitis (HCC) [K86.0] 07/12/2023 BPH (benign prostatic hyperplasia) [N40.0] 07/12/2023 HLD (hyperlipidemia) [E78.5] 07/12/2023 Diabetes mellitus type 2, controlled, without c*07/12/2023 Depression [F32.A] 07/12/2023 Seasonal allergies [J30.2] 07/12/2023 Pancreatic cirrhosis [K86.89] 07/13/2023 Nicotine use disorder, F17.2 [F17.200] 12/30/2023 Liver abscess [K75.0] 12/30/2023 Recurrent abdominal pain [R10.9] 12/31/2023 Chronic pancreatitis (HCC) [K86.1] 12/31/2023 Poor dentition [K08.9] 12/31/2023 Lesion of bladder [N32.9] 12/31/2023 Prostate cancer (HCC) [C61] 02/23/2024 Prostate nodule [N40.2] 02/23/2024 Encounter Status:Closed by TRACEY BROWN on 11/08/24 Normal [facility] Testosterone, Total / Freeon 10-23-2024 TESTOSTER,FREE 8.08 ng/dL Normal 5.00-21.00 [facility] Comment on above: Order Comment: N Performed By: #### L 3890.6202, L501.9985, L3100.0440, L3890.6102, L502.0250, L3890.6301, L7000.7000, L3100.0460, L7000.8000 #### [facility] [address] [place], [place], [id number] TESTOSTER,TOTAL 318 ng/dL Normal 264-916 [facility] Comment on above: Order Comment: N Result Comment: Adul t male reference interval is based on a population of healthy nonobese males (BMI <30) between 19 and 39 years old. davin Pretty.al. JCEM 2017,102;7686-6155. PMID: [id number]. Performed By: #### L 3890.6202, L501.9985, L3100.0440, L3890.6102, L502.0250, L3890.6301, L7000.7000, L3100.0460, L7000.8000 #### [facility] [address] [place], [address] TESTOSTERONE,%F 2.54 Normal 1.50-4.20 [facility] Comment on above: Order Comment: N Result Comment: Perf ormed at: [facility] [id number] Tooth Cutter: Tavo Gregory PhD, Phone: [phone] Performed at: - [facility] [id number] Tooth Cutter: Jimena Mary MD, Phone: [phone] Performed By: #### L 3890.6202, L501.9985, L3100.0440, L3890.6102, L502.0250, L3890.6301, L7000.7000, L3100.0460, L7000.8000 #### [facility] [address] [place], [address] Carotid Duplex Ultrasoundon 10-17-2024 Carotid Duplex Ultrasound [facility] [address] [place] [address] Carotid Duplex Ultrasound 10/17/24 0853 MR#: [id number] Acct: [id number] Name: KYLE MCDANIEL Rep #: [id number] : 1960 63 From: Leonardo Huffman MD Attending Dr: Dr. Toni Luna MD Status: REG CLI Ordering Dr: Toni Luna MD Date: 10/17/24 Location: [facility] Sex: M C Admitted: Reason For Study Reason For Study: Amaurosis fugax Rt. Velocities/BP Lt. Velocities/BP Prox CCA 75.9/20.1 cm/sec. Prox CCA 71.4/20.9 cm/sec. Mid CCA 58.9/14.5 cm/sec. Mid CCA 54.3/15.2 cm/sec. Dist CCA 53.2/16.3 cm/sec. Dist CCA 60/18.7 cm/sec. Prox ICA 37.8/10.7 cm/sec. Prox ICA 33.7/13.7 cm/sec. Mid ICA 44.7/18.6 cm/sec. Mid ICA 36.5/15.2 cm/sec. Dist ICA 50/22.9 cm/sec. Dist ICA 47.4/25.6 cm/sec. Rt. ICA/CCA = 0.85. Lt. ICA/CCA = 0.87. Prox ECA 61.7/9.7 cm/sec. Prox ECA 66.4/10.2 cm/sec. Rt. Vert. 30.4/10.2 cm/sec. Lt. Vert. 50.9/20.3 cm/sec. Right Extracranial There is intimal thickening but no significant atherosclerotic plaque noted in the right common carotid artery. There is homogeneous, smooth atherosclerotic plaque noted in the right internal carotid artery. There is intimal thickening but no significant atherosclerotic plaque noted in the right external carotid artery. Antegrade flow is noted in the right vertebral artery. Left Extracranial There is intimal thickening but no significant atherosclerotic plaque noted in the left common carotid artery. There is intimal thickening but no significant atherosclerotic plaque noted in the left internal carotid artery. There is intimal thickening but no significant atherosclerotic plaque noted in the left external carotid artery. Antegrade flow is noted in the left vertebral artery. Procedure Carotid Duplex 72244. This is a Carotid Duplex examination using B-mode, color flow and specral Doppler. Exam performed in department. VL/Carotid Duplex Ultrasound Interpretation Summary Mild (<50%) stenosis right extracranial internal carotid. Normal left extracranial internal carotid. Patent and antegrade vertebrals bilaterally. Ordering Physician: Toni Luna Referring Physician: Mago Elliott Performed By: Iza Parsons RVT 10/17/241823 Date Leonardo Huffman MD CC: Dr. Mago Elliott MD; Dr. Toni Luna MD Date Dictated: 10/17/24852 Date Transcribed: 10/17/241823 Collating Machine Operator: Signed Normal [facility] Duplex ultrasound of carotid artery reportOrdered By: Leonardo Huffman on 10-17-2024 Study report [facility] [address] [place] [address] Carotid Duplex Ultrasound 10/17/24852 MR#: [id number] Acct: [id number] Name: KYLE MCDANIEL Rep #:[id number] : 1960 63 From: Leonardo Mendez Attending Dr: Dr. Toni Luna MD Status: REG CLI Ordering Dr: Toni Luna MD Date: 10/17/24 Location: [facility] Sex: M C Admitted: Reason For Study Reason For Study: Amaurosis fugax Rt. Velocities/BP Lt. Velocities/BP Prox CCA 75.9/20.1 cm/sec. Prox CCA 71.4/20.9 cm/sec. Mid CCA 58.9/14.5 cm/sec. Mid CCA 54.3/15.2 cm/sec. Dist CCA 53.2/16.3 cm/sec. Dist CCA 60/18.7 cm/sec. Prox ICA 37.8/10.7 cm/sec. Prox ICA 33.7/13.7 cm/sec. Mid ICA 44.7/18.6 cm/sec. Mid ICA 36.5/15.2 cm/sec. Dist ICA 50/22.9 cm/sec. Dist ICA 47.4/25.6 cm/sec. Rt. ICA/CCA = 0.85. Lt. ICA/CCA = 0.87. Prox ECA 61.7/9.7 cm/sec. Prox ECA 66.4/10.2 cm/sec. Rt. Vert. 30.4/10.2 cm/sec. Lt. Vert. 50.9/20.3 cm/sec. Right Extracranial There is intimal thickening but no significant atherosclerotic plaque noted in the right common carotid artery. There is homogeneous, smooth atherosclerotic plaque noted in the right internal carotid artery. There is intimal thickening but no significant atherosclerotic plaque noted in the right external carotid artery. Antegrade flow is noted in the right vertebral artery. Left Extracranial There is intimal thickening but no significant atherosclerotic plaque noted in the left common carotid artery. There is intimal thickening but no significant atherosclerotic plaque noted in the left internal carotid artery. There is intimal thickening but no significant atherosclerotic plaque noted in the left external carotid artery. Antegrade flow is noted in the left vertebral artery. Procedure Carotid Duplex 40594. This is a Carotid Duplex examination using B-mode, color flow and specral Doppler. Exam performed in department. VL/Carotid Duplex Ultrasound Interpretation Summary Mild (<50%) stenosis right extracranial internal carotid. Normal left extracranial internal carotid. Patent and antegrade vertebrals bilaterally. Ordering Physician: Toni Luna Referring Physician: Mago Elliott Performed By: Iza Parsons RVT 10/17/241823 Date _ Leonardo Huffman MD CC: Dr. Mago Elliott MD; Dr. Toni Luna MD ~ Date Dictated: 10/17/24852 Date Transcribed: 10/17/241823 Collating Machine Operator: Signed [facility] Work Phone: CNPNon 09-04-2024 [facility] KYLE MCDANIEL ([id number]) 1960 M Date Time Provider Department 09/04/24 EVANS MCCLOUD During your visit today, we recorded the following information about you: Uche Michele 09/04/2024 2:37 PM Signed Called to Reschedule missed appointment (09/04/24) with Dr. Zoila Mccloud. Allergies As of Date: 09/04/2024 Noted Allergy Reaction AZITHROMYCIN 11/08/2022 4 - Hives ERYTHROMYCIN 01/04/2023 4 - Hives TYLENOL (ACETAMINOPHEN) 12/30/2023 4 - Hives Date Reviewed: 07/10/2024 Reviewed by: Evans Mccloud MD - Fully Assessed Prescriptions as of 09/04/2024 - metoprolol succinate ER (TOPROL XL) 25 mg 24 hr tablet Take 0.5 tablets by mouth once daily. - lisinopril 2.5 mg tablet Take 1 tablet by mouth once daily. - nridrv-mnqeupyx-kheitko (CREON 12) 12,000-38,000 -60,000 unit delayed release capsule Take 1 capsule by mouth with meals and at bedtime. - ondansetron HCl (ZOFRAN ORAL) Take by mouth. - thiamine (VITAMIN B1) 100 mg tablet Take 1 tablet by mouth once daily. - insulin lispro (HUMALOG KWIKPEN INSULIN) 100 unit/mL Inject 5 Units subcutaneously three times a day with meals. - aspirin, enteric coated (ASPIRIN, ENTERIC COATED) 81 mg EC tablet Take 81 mg by mouth once daily. - traZODone (DESYREL) 100 mg tablet Take 100 mg by mouth daily at bedtime. - thiamine (VITAMIN B1) 100 mg tablet Take 100 mg by mouth once daily. - tamsulosin (FLOMAX) 0.4 mg Take 0.4 mg by mouth once daily. - rosuvastatin (CRESTOR) 40 mg tablet Take 40 mg by mouth once daily. - metFORMIN ER (GLUMETZA) 1,000 mg 24 hr tablet Take 1,000 mg by mouth two times a day. - sertraline (ZOLOFT) 50 mg tablet Take 50 mg by mouth once daily. - montelukast (SINGULAIR) 10 mg tablet Take 10 mg by mouth daily at bedtime. - LORATADINE ORAL Take 10 mg by mouth once daily. - LANTUS SOLOSTAR U-100 INSULIN 100 unit/mL (3 mL) Inject 25 Units subcutaneously two times a day. Problem List As Of Date 09/04/2024 Noted Resolved Chronic alcoholic pancreatitis (HCC) [K86.0] 07/12/2023 BPH (benign prostatic hyperplasia) [N40.0] 07/12/2023 HLD (hyperlipidemia) [E78.5] 07/12/2023 Diabetes mellitus type 2, controlled, without c*07/12/2023 Depression [F32.A] 07/12/2023 Seasonal allergies [J30.2] 07/12/2023 Pancreatic cirrhosis [K86.89] 07/13/2023 Nicotine use disorder, F17.2 [F17.200] 12/30/2023 Liver abscess [K75.0] 12/30/2023 Recurrent abdominal pain [R10.9] 12/31/2023 Chronic pancreatitis (HCC) [K86.1] 12/31/2023 Poor dentition [K08.9] 12/31/2023 Lesion of bladder [N32.9] 12/31/2023 Prostate cancer (HCC) [C61] 02/23/2024 Prostate nodule [N40.2] 02/23/2024 Encounter Status:Closed by UCHE MICHELE on 09/04/24 [facility] Jayne 07-18-2024 CNPN Telephone (TOMA) KYLE MCDANIEL ([id number]) 1960 M Date Time Provider Department 07/18/24 EVANS MCCLOUD During your visit today, we recorded the following information about you: Evelia Dow RN 07/18/2024 10:06 AM Addendum Evans Mccloud MD P [facility] Pool UDS positive for ETOH metabolites. As we discussed in office if UDS was positive for ETOH, I would not continue to prescribe. No further opiates. Called pt, he did not answer, lmom to call office Evelia Dow RN July 18, 2024 10:06 AM Evelia Dow RN 07/22/2024 9:58 AM Signed Adia pt returned our call, notified of message below. Offered a sooner appt at this time and she declined, said if one was needed she would call back Evelia Dow RN July 22, 2024 9:58 AM Allergies As of Date: 07/18/2024 Noted Allergy Reaction AZITHROMYCIN 11/08/2022 4 - Hives ERYTHROMYCIN 01/04/2023 4 - Hives TYLENOL (ACETAMINOPHEN) 12/30/2023 4 - Hives Date Reviewed: 07/10/2024 Reviewed by: Evans Mccloud MD - Fully Assessed Prescriptions as of 07/22/2024 - metoprolol succinate ER (TOPROL XL) 25 mg 24 hr tablet Take 0.5 tablets by mouth once daily. - lisinopril 2.5 mg tablet Take 1 tablet by mouth once daily. - hrpmoh-zngqluqa-jbqapni (CREON 12) 12,000-38,000 -60,000 unit delayed release capsule Take 1 capsule by mouth with meals and at bedtime. - ondansetron HCl (ZOFRAN ORAL) Take by mouth. - thiamine (VITAMIN B1) 100 mg tablet Take 1 tablet by mouth once daily. - insulin lispro (HUMALOG KWIKPEN INSULIN) 100 unit/mL Inject 5 Units subcutaneously three times a day with meals. - aspirin, enteric coated (ASPIRIN, ENTERIC COATED) 81 mg EC tablet Take 81 mg by mouth once daily. - traZODone (DESYREL) 100 mg tablet Take 100 mg by mouth daily at bedtime. - thiamine (VITAMIN B1) 100 mg tablet Take 100 mg by mouth once daily. - tamsulosin (FLOMAX) 0.4 mg Take 0.4 mg by mouth once daily. - rosuvastatin (CRESTOR) 40 mg tablet Take 40 mg by mouth once daily. - metFORMIN ER (GLUMETZA) 1,000 mg 24 hr tablet Take 1,000 mg by mouth two times a day. - sertraline (ZOLOFT) 50 mg tablet Take 50 mg by mouth once daily. - montelukast (SINGULAIR) 10 mg tablet Take 10 mg by mouth daily at bedtime. - LORATADINE ORAL Take 10 mg by mouth once daily. - LANTUS SOLOSTAR U-100 INSULIN 100 unit/mL (3 mL) Inject 25 Units subcutaneously two times a day. Problem List As Of Date 07/18/2024 Noted Resolved Chronic alcoholic pancreatitis (HCC) [K86.0] 07/12/2023 BPH (benign prostatic hyperplasia) [N40.0] 07/12/2023 HLD (hyperlipidemia) [E78.5] 07/12/2023 Diabetes mellitus type 2, controlled, without c*07/12/2023 Depression [F32.A] 07/12/2023 Seasonal allergies [J30.2] 07/12/2023 Pancreatic cirrhosis [K86.89] 07/13/2023 Nicotine use disorder, F17.2 [F17.200] 12/30/2023 Liver abscess [K75.0] 12/30/2023 Recurrent abdominal pain [R10.9] 12/31/2023 Chronic pancreatitis (HCC) [K86.1] 12/31/2023 Poor dentition [K08.9] 12/31/2023 Lesion of bladder [N32.9] 12/31/2023 Prostate cancer (HCC) [C61] 02/23/2024 Prostate nodule [N40.2] 02/23/2024 Encounter Status:Closed by EVELIA DOW on 07/18/24 [facility] CNOVon 07-10-2024 CNOV Office Visit (PAMMJK ) KYLE MCDANIEL ([id number]) 1960 M Date Time Provider Department 07/10/24 1:30 PM EVANS MCCLOUD During your visit today, we recorded the following information about you: Pulse Respiration Blood pressure Weight 86/minute 17/minute 111/72 99.8 kg Height 1.854 m Danielle Turner MA 07/10/2024 2:11 PM Signed Room 3 New Consult: Back Pain Evans Mccloud MD 07/10/2024 2:11 PM Signed PATIENT: Kyle Mcdaniel : 1960 DATE OF SERVICE: 07/10/2024 REFERRING PRACTITIONER: No ref. provider found PRIMARY CARE PROVIDER: Mago Elliott MD CHIEF COMPLAINT: No chief complaint on file. HISTORY OF PRESENT ILLNESS: Kyle Mcdaniel is a 63 year old year old male who presents to the clinic today with chief complaint(s) as above. Onset/Duration: Patient states he has had chronic pancreatitis since at least March 2018 Injury: Denies injury that started his pain Location/radiation/refe rral: Patient has abdominal pain that radiates into the ribs and into the back. He also has low back pain as well as left knee pain. Description: Pain in the abdomen is a constant pressure and occasionally sharp. He states this flares up every 2 weeks for about 3 or 4 days. He states he makes frequent trips to the emergency department. He states he is also likely to have surgery in August or September for this Pain Level: Now: Best: Worst: Numbness/Tingling (location): None Weakness (location): None Better with: Pain medication Worse with: Dietary changes can cause flareups Fever/Chills: [] Yes [x] No Recent significant weight change: [] Yes [x] No Bladder/Bowel incontinence: [] Yes [x] No Is this visit directly related to a work or auto injury? [] Yes [x] No If so, pre-Injury Symptoms: n/a Prior Related Consults: [x] Yes [] No 1. GI 2. General Surgery Prior Related Studies: See below Past Treatment: PT (for this condition): [] Yes [x] No Chiropractic (for this condition): [] Yes [x] No Medications: Previous opiate pain medication from emergency department Other: Prior Procedures/Surgery: Date Procedure Relief (%) Celiac plexus block did not help-completed at [facility] Per patient Work/Functional Status Able to ambulate and perform ADL's without devices: [x] Yes [] No Current occupation/duties/job title: === Review of Systems: CONSTITUTIONAL: negative. HEENT: negative. EYES: negative RESPIRATORY: negative. CARDIOVASCULAR: negative. GASTROINTESTINAL: negative. GENITOURINARY: negative. INTEGUMENT/BREAST: negative. HEMATOLOGIC/LYMPHATIC: negative. NEURO/MUSCULOSKELETAL: Negative except above BEHAVIORAL/PSYCH: negative. ENDOCRINE: negative. ALLERGIC/IMMUNOLOGIC: Negative. 14 point ROS; pertinent positives listed above, the rest are reviewed and confirmed to be negative. === HISTORY: ALLERGIES Allergen Reactions Azithromycin Hives Erythromycin Hives Tylenol [Acetaminop* Hives PAST MEDICAL HISTORY Diagnosis Date Alcohol abuse CHF (congestive heart failure) (HCC) Diabetes mellitus (HCC) Hx of chronic pancreatitis Hyperlipemia TIA (transient ischemic attack) PAST SURGICAL HISTORY Procedure Laterality Date ABDOMINAL SURGERY HX History reviewed. No pertinent family history. Social History Tobacco Use Smoking status: Every Day Current packs/day: 1.00 Average packs/day: 1 pack/day for 20.0 years (20.0 ttl pk-yrs) Types: Cigarettes Smokeless tobacco: Former Types: Snuff Tobacco comments: As per pt "I smoke 12-15 smokes a day, but when I drink I know its way more." Vaping Use Vaping status: Never Used Substance Use Topics Alcohol use: Yes Comment: 1 pint liquor per week, depends on weeks Drug use: Never Current Outpatient Medications Medication Sig ondansetron orally disintegrating (ZOFRAN ODT) 4 mg disintegrating tablet Take 1 tablet by mouth every 6 hours as needed for nausea/vomiting for up to 7 days. metoprolol succinate ER (TOPROL XL) 25 mg 24 hr tablet Take 0.5 tablets by mouth once daily. lisinopril 2.5 mg tablet Take 1 tablet by mouth once daily. cogyff-bbleemcn-hqmnfrq (CREON 12) 12,000-38,000 -60,000 unit delayed release capsule Take 1 capsule by mouth with meals and at bedtime. ondansetron HCl (ZOFRAN ORAL) Take by mouth. thiamine (VITAMIN B1) 100 mg tablet Take 1 tablet by mouth once daily. insulin lispro (HUMALOG KWIKPEN INSULIN) 100 unit/mL Inject 5 Units subcutaneously three times a day with meals. aspirin, enteric coated (ASPIRIN, ENTERIC COATED) 81 mg EC tablet Take 81 mg by mouth once daily. traZODone (DESYREL) 100 mg tablet Take 100 mg by mouth daily at bedtime. thiamine (VITAMIN B1) 100 mg tablet Take 100 mg by mouth once daily. tamsulosin (FLOMAX) 0.4 mg Take 0.4 mg by mouth once daily. rosuvastatin (more content not included)... Normal [facility] CBC W Auto Differential pane l (Bld)on 07-09-2024 Basophils (Bld) [#/Vol] 0.09 10*3/uL Normal <0.11 [facility] Comment on above: Order Comment: Speci men Type: BLOOD SPECIMENOrdering Facility: [facility] Address: [address] [place] [address] Performed By: #### 5 7021-8 ####[facility] LABORATORYCLIA [id number] [place] [id number] [place] Basophils/100 WBC (Bld) 1.0 % Normal [facility] Comment on above: Order Comment: Speci men Type: BLOOD SPECIMENOrdering Facility: [facility] Address: [address] [place] [address] Performed By: #### 5 7021-8 ####[facility] LABORATORYCLIA [id number] [address] [place] Differential cell count method Nom (Bld) Auto Normal [facility] Comment on above: Order Comment: Speci men Type: BLOOD SPECIMENOrdering Facility: [facility] Address: [address] [place] [address] Performed By: #### 5 7021-8 ####[facility] LABORATORYCLIA [id number] [place] [address] [place] Eosinophils (Bld) [#/Vol] 0.33 10*3/uL Normal <0.46 [facility] Comment on above: Order Comment: Speci men Type: BLOOD SPECIMENOrdering Facility: [facility] Address: [address] [place] [address] Performed By: #### 5 7021-8 ####[facility] LABORATORYCLIA [id number] [address] [place] Eosinophils/100 WBC (Bld) 3.5 % Normal [facility] Comment on above: Order Comment: Speci men Type: BLOOD SPECIMENOrdering Facility: [facility] Address: [address] [place] [address] Performed By: #### 5 7021-8 ####[facility] LABORATORYCLIA [id number] [place] [address] [place] Erythrocyte distribution width (RBC) [Ratio] 12.1 % Normal 11.5-15.0 [facility] Comment on above: Order Comment: Speci men Type: BLOOD SPECIMENOrdering Facility: [facility] Address: [address] [place] [address] Performed By: #### 5 7021-8 ####[facility] LABORATORYCLIA [id number] [place] [address] [place] Hematocrit (Bld) [Volume fraction] 46.9 % Normal 39.0-51.0 [facility] Comment on above: Order Comment: Speci men Type: BLOOD SPECIMENOrdering Facility: [facility] Address: [address] [place] [address] Performed By: #### 5 7021-8 ####[facility] LABORATORYCLIA [id number] [place] [address] [place] Hemoglobin (Bld) [Mass/Vol] 16.3 g/dL Normal 13.0-17.0 [facility] Comment on above: Order Comment: Speci men Type: BLOOD SPECIMENOrdering Facility: [facility] Address: [address] [place] [address] Performed By: #### 5 7021-8 ####[facility] LABORATORYCLIA [id number] [place] [address] [place] Immature granulocytes (Bld) [#/Vol] 0.03 10*3/uL Normal <0.10 [facility] Comment on above: Order Comment: Speci men Type: BLOOD SPECIMENOrdering Facility: [facility] Address: [address] [place] [address] Performed By: #### 5 7021-8 ####[facility] LABORATORYCLIA [id number] [place] [address] [place] Immature granulocytes/100 WBC (Bld) 0.3 % Normal [facility] Comment on above: Order Comment: Speci men Type: BLOOD SPECIMENOrdering Facility: [facility] Address: [address] [place] [address] Performed By: #### 5 7021-8 ####[facility] LABORATORYCLIA [id number] [place] [address] [place] Lymphocytes (Bld) [#/Vol] 2.91 10*3/uL Normal 1.00-4.00 [facility] Comment on above: Order Comment: Speci men Type: BLOOD SPECIMENOrdering Facility: [facility] Address: [address] [place] [address] Performed By: #### 5 7021-8 ####[facility] LABORATORYCLIA [id number] [address] [place] Lymphocytes/100 WBC (Bld) 31.1 % Normal [facility] Comment on above: Order Comment: Speci men Type: BLOOD SPECIMENOrdering Facility: [facility] Address: [address] [place] [address] Performed By: #### 5 7021-8 ####[facility] LABORATORYCLIA [id number] [place] [address] [place] MCH (RBC) [Entitic mass] 31.2 pg Normal 26.0-34.0 [facility] Comment on above: Order Comment: Speci men Type: BLOOD SPECIMENOrdering Facility: [facility] Address: [address] [place] [address] Performed By: #### 5 7021-8 ####[facility] LABORATORYCLIA [id number] [address] [place] MCHC (RBC) [Mass/Vol] 34.8 g/dL Normal 30.5-36.0 [facility] Comment on above: Order Comment: Speci men Type: BLOOD SPECIMENOrdering Facility: [facility] Address: [address] [place] [address] Performed By: #### 5 7021-8 ####[facility] LABORATORYCLIA [id number] [address] [place] MCV (RBC) [Entitic vol] 89.8 fL Normal 80.0-100.0 [facility] Comment on above: Order Comment: Speci men Type: BLOOD SPECIMENOrdering Facility: [facility] Address: [address] [place] [address] Performed By: #### 5 7021-8 ####[facility] LABORATORYCLIA [id number] [place] [address] [place] Monocytes (Bld) [#/Vol] 0.75 10*3/uL Normal <0.87 [facility] Comment on above: Order Comment: Speci men Type: BLOOD SPECIMENOrdering Facility: [facility] Address: [address] [place] [address] Performed By: #### 5 7021-8 ####[facility] LABORATORYCLIA [id number] [place] [address] [place] Monocytes/100 WBC (Bld) 8.0 % Normal [facility] Comment on above: Order Comment: Speci men Type: BLOOD SPECIMENOrdering Facility: [facility] Address: [address] [place] [address] Performed By: #### 5 7021-8 ####[facility] LABORATORYCLIA [id number] [place] [address] [place] Neutrophils (Bld) [#/Vol] 5.25 10*3/uL Normal 1.45-7.50 [facility] Comment on above: Order Comment: Speci men Type: BLOOD SPECIMENOrdering Facility: [facility] Address: [address] [place] [address] Performed By: #### 5 7021-8 ####[facility] LABORATORYCLIA [id number] [place] [address] [place] Neutrophils/100 WBC (Bld) 56.1 % Normal [facility] Comment on above: Order Comment: Speci men Type: BLOOD SPECIMENOrdering Facility: [facility] Address: [address] [place] [address] Performed By: #### 5 7021-8 ####[facility] LABORATORYCLIA [id number] [place] [id number] [place] Nucleated RBC (Bld) [#/Vol] 10*3/uL Normal <0.01 [facility] Comment on above: Order Comment: Speci men Type: BLOOD SPECIMENOrdering Facility: [facility] Address: [address] [place] [address] Performed By: #### 5 7021-8 ####[facility] LABORATORYCLIA [id number] [place] [id number] [place] Nucleated RBC/100 WBC (Bld) [Ratio] 0.0 /100 WBC Normal [facility] Comment on above: Order Comment: Speci men Type: BLOOD SPECIMENOrdering Facility: [facility] Address: [address] [place] [address] Performed By: #### 5 7021-8 ####[facility] LABORATORYCLIA [id number] [place] [address] [place] Platelet mean volume (Bld) [Entitic vol] 9.8 fL Normal 9.0-12.7 [facility] Comment on above: Order Comment: Speci men Type: BLOOD SPECIMENOrdering Facility: [facility] Address: [address] [place] [address] Performed By: #### 5 7021-8 ####[facility] LABORATORYCLIA [id number] [place] [address] [place] Platelets (Bld) [#/Vol] 252 10*3/uL Normal 150-400 [facility] Comment on above: Order Comment: Speci men Type: BLOOD SPECIMENOrdering Facility: [facility] Address: [address] [place] [address] Performed By: #### 5 7021-8 ####[facility] LABORATORYCLIA [id number] [place] [address] [place] RBC (Bld) [#/Vol] 5.22 10*6/uL Normal 4.20-6.00 [facility] Comment on above: Order Comment: Speci men Type: BLOOD SPECIMENOrdering Facility: [facility] Address: [address] [place] [address] Performed By: #### 5 7021-8 ####[facility] LABORATORYCLIA [id number] [place] [id number] [place] WBC (Bld) [#/Vol] 9.36 10*3/uL Normal 3.70-11.00 [facility] Comment on above: Order Comment: Speci men Type: BLOOD SPECIMENOrdering Facility: [facility] Address: [facility] [place] [address] Performed By: #### 5 7021-8 ####[facility] LABORATORYCLIA [id number] [place] [id number] [facility] [place] CT ABD/PEL W IVCONon 025 CT ABD/PEL W IVCON * * *Final Report* * * DATE OF EXAM: Jul 09 2024 4:58PM [facility] 0530 - CT ABD/PEL W IVCON / PROCEDURE REASON: Abdominal abscess/infection suspected * * * * Physician Interpretation * * * * EXAMINATION: CT ABDOMEN AND PELVIS WITH IV CONTRAST CLINICAL HISTORY: Abdominal pain, chronic pancreatitis, nausea vomiting, diarrhea TECHNIQUE: CT of the abdomen and pelvis was performed using standard technique, scanning from just above the dome of the diaphragm to the symphysis pubis. MQ: CTAP_3 Contrast: IV: 100 ml of Omnipaque 350 : ml of CT Radiation dose: Integrated Dose-length product (DLP) for this visit = 956.11 mGy*cm. CT Dose Reduction Employed: Automated exposure control(AEC) and iterative recon COMPARISON: 05/08/2024, and others RESULT: Liver: No mass. Biliary: Stable pneumobilia. Stable gallbladder gas without distention. Biliary stent is present terminating within the duodenum. Spleen: No mass. No splenomegaly. Pancreas: High attenuation pancreatic head remains with absence or severe atrophy of the tail, and body. No ductal dilatation is evident. Prominent calcification remains centrally with central lucency, likely vascular. Adrenals: No mass. Kidneys: No mass, calculus or hydronephrosis. GI tract: Multiple thickened loops of small bowel, primarily jejunum with focal dilatation within the left upper quadrant and minimal air-fluid levels. Similar less severe ileal mural thickening. Lymph nodes: No abdominal or pelvic lymphadenopathy. Mesentery/Peritoneum: No ascites or mass. Retroperitoneum: No mass. Vasculature: Mild attenuation of the main portal vein at the confluence appears stable. There is soft tissue infiltration surrounding the celiac axis, appearing more prominent relative to the prior study. Similar infiltration surrounds proximal portions of the common hepatic artery and splenic artery. Similar worsening changes at the level of the portal confluence. Pelvis: No mass, ascites or fluid collection. Bones/Soft Tissues: Degenerative changes. Lower thorax: Unremarkable. Localizer images: Unremarkable. IMPRESSION: Stable masslike prominence of the pancreatic head with atrophy/resection of proximal portions. Biliary stent remains with associated pneumobilia. There is worsening intermediate attenuation infiltration surrounding the celiac artery and branches as well as the portal confluence which may reflect edema or fibrosis. Recommend reevaluation short-term follow-up examination. Prominent small bowel loops with distention within left upper quadrant with generalized small bowel mural thickening suggestive of ileus/enteritis. Early partial obstruction is not excluded. Collating Machine Operator: ARMINDA Transcribe Date/Time: Jul 09 2024 5:27P Dictated by : SHERRI CASTAÑEDA MD This examination was interpreted and the report reviewed and electronically signed by: SHERRI CASTAÑEDA MD on Jul 09 2024 5:47PM EST [id number] Normal [facility] Comprehensive metabolic 2000 panelon 07-09-2024 Albumin [Mass/Vol] 3.9 g/dL Normal 3.2-5.0 [facility] Comment on above: Order Comment: Davis atkinson Type: BLOOD SPECIMENOrdering Facility: [facility] Address: [address] [place] [address] Performed By: #### 2 4323-8, 3040-3, HSTROP, 5643-2 ####[facility] LABORATORYCLIA [id number] [place] [address] [place] ALP [Catalytic activity/Vol] 109 U/L Normal 45-117 [facility] Comment on above: Order Comment: [place] Type: BLOOD SPECIMENOrdering Facility: [facility] Address: [address] [place] [address] Performed By: #### 2 4323-8, 3040-3, HSTROP, 5643-2 ####[facility] LABORATORYCLIA [id number] [place] [address] [place] ALT [Catalytic activity/Vol] 16 U/L Normal 13-61 [facility] Comment on above: Order Comment: Speci men Type: BLOOD SPECIMENOrdering Facility: [facility] Address: [address] [place] [address] Result Comment: Resu lts may be falsely depressed after the administration of Sulfasalazine and/or Sulfapyridine. Performed By: #### 2 4323-8, 3040-3, HSTROP, 5643-2 ####[facility] LABORATORYCLIA [id number] [address] STATES OF [facility] Anion gap [Moles/Vol] 5 mmol/L Normal 5-16 [facility] Comment on above: Order Comment: Speci men Type: BLOOD SPECIMENOrdering Facility: [facility] Address: [address] [place] [address] Performed By: #### 2 4323-8, 3040-3, HSTRANISH, 5643-2 ####[facility] LABORATORYCLIA [id number] [address] STATES [facility] AST [Catalytic activity/Vol] 14 U/L Normal 8-34 [facility] Comment on above: Order Comment: Speci china Type: BLOOD SPECIMENOrdering Facility: [facility] Address: [address] [place] [address] Result Comment: Resu lts may be falsely depressed after the administration of Sulfasalazine and/or Sulfapyridine. Performed By: #### 2 4323-8, 3040-3, HSTRANISH, 5643-2 ####[facility] LABORATORYCLIA [id number] [address] [place] Bilirubin [Mass/Vol] 0.4 mg/dL Normal 0.2-1.0 [facility] Comment on above: Order Comment: Zenai [place] Type: BLOOD SPECIMENOrdering Facility: [facility] Address: [address] [place] [address] Performed By: #### 2 4323-8, 3040-3, HSTROP, 5643-2 ####[facility] LABORATORYCLIA [id number] [place] [address] [place] Calcium [Mass/Vol] 9.8 mg/dL Normal 8.5-10.5 [facility] Comment on above: Order Comment: Speci men Type: BLOOD SPECIMENOrdering Facility: [facility] Address: [address] [place] [address] Performed By: #### 2 4323-8, 3040-3, HSTROP, 5643-2 ####[facility] LABORATORYCLIA [id number] [place] [id number] [place] Chloride [Moles/Vol] 105 mmol/L Normal 98-107 [facility] Comment on above: Order Comment: Speci men Type: BLOOD SPECIMENOrdering Facility: [facility] Address: [address] [place] [address] Performed By: #### 2 4323-8, 3040-3, HSTROP, 5643-2 ####[facility] LABORATORYCLIA [id number] [place] [address] [place] CO2 [Moles/Vol] 28 mmol/L Normal 21-32 [facility] Comment on above: Order Comment: Speci men Type: BLOOD SPECIMENOrdering Facility: [facility] Address: [address] [place] [address] Performed By: #### 2 4323-8, 3040-3, HSTROP, 5643-2 ####[facility] LABORATORYCLIA [id number] [place] [id number] [place] Creatinine [Mass/Vol] 0.82 mg/dL Normal 0.50-1.40 [facility] Comment on above: Order Comment: Speci men Type: BLOOD SPECIMENOrdering Facility: [facility] Address: [address] [place] [address] Result Comment: Malik ents receiving either N-Acetylcysteine (NAC) or Metamizole prior to venipuncture, may have falsely depressed results. Performed By: #### 2 4323-8, 3040-3, HSTROP, 5643-2 ####[facility] LABORATORYCLIA [id number] [place] [address] [place] Creatinine and Glomerular filtration rate.predicted panel (S/P/Bld) 97 mL/min/1.73m??? Normal >=60 [facility] Comment on above: Order Comment: [place] Type: BLOOD SPECIMENOrdering Facility: [facility] Address: [address] [place] [address] Result Comment: Genny mated Glomerular Filtration Rate (eGFR) is calculated using the 2020 CKD-EPI creatinine equation. This equation utilizes serum creatinine, sex, and age as parameters. The creatinine assay has traceable calibration to isotope dilution-mass spectrometry. Refer to KDIGO guidelines for clinical interpretation. In patients with unstable renal function, e.g. those with acute kidney injury, the eGFR may not accurately reflect actual GFR. Performed By: #### 2 4323-8, 3040-3, HSTROP, 5643-2 ####[facility] LABORATORYCLIA [id number] [place] [address] [place] Glucose [Mass/Vol] 141 mg/dL High 70-100 [facility] Comment on above: Order Comment: [place] at[place] Type: BLOOD SPECIMENOrdering Facility: [facility] Address: [address] [place] [address] Result Comment: The [place] [employer] (ADA) provides guidance for cutoff values for fasting glucose and random glucose. The ADA defines fasting as no caloric intake for at least 8 hours. Fasting plasma glucose results between 100 to 125 mg/dL indicate increased risk for diabetes (prediabetes). Fasting plasma glucose results greater than or equal to 126 mg/dL meet the criteria for diagnosis of diabetes. In the absence of unequivocal hyperglycemia, results should be confirmed by repeat testing. In a patient with classic symptoms of hyperglycemia or hyperglycemic crisis, random plasma glucose results greater than or equal to 200 mg/dL meet the criteria for diagnosis of diabetes. Reference: Standards of Medical Care in Diabetes 2016, [place] [employer]. Diabetes Care. 2016.39(Suppl 1). Results may be falsely elevated after the administration of Sulfapyridine. Results may be falsely depressed after the administration of Sulfasalazine. Performed By: #### 2 4323-8, 3040-3, HSTROP, 5643-2 ####[facility] LABORATORYCLIA [id number] [place] [address] [place] Potassium [Moles/Vol] 4.0 mmol/L Normal 3.5-5.1 [facility] Comment on above: Order Comment: Speci men Type: BLOOD SPECIMENOrdering Facility: [facility] Address: [address] [place] [address] Performed By: #### 2 4323-8, 3040-3, HSTROP, 5643-2 ####[facility] LABORATORYCLIA [id number] [place] [address] [place] Protein [Mass/Vol] 7.0 g/dL Normal 6.0-8.5 [facility] Comment on above: Order Comment: Speci men Type: BLOOD SPECIMENOrdering Facility: [facility] Address: [address] [place] [address] Performed By: #### 2 4323-8, 0-3, HSTROP, 5643-2 ####[facility] LABORATORYCLIA [id number] [place] [id number] [place] Sodium [Moles/Vol] 138 mmol/L Normal 136-145 [facility] Comment on above: Order Comment: Speci men Type: BLOOD SPECIMENOrdering Facility: [facility] Address: [address] [place] [address] Performed By: #### 2 4323-8, 3040-3, HSTROP, 5643-2 ####[facility] LABORATORYCLIA [id number] [place] [address] [place] Urea nitrogen [Mass/Vol] 9 mg/dL Normal 7-26 [facility] Comment on above: Order Comment: Speci men Type: BLOOD SPECIMENOrdering Facility: [facility] Address: [address] [place] [address] Performed By: #### 2 4323-8, 3040-3, HSTROP, 5643-2 ####[facility] LABORATORYCLIA [id number] [place], [place] [id number] [place] ECG COMPLETEon 07-09-2024 ECG COMPLETE Ventricular Rate : 8 8 BPM Atrial Rate : 88 BPM P-R Interval : 148 ms QRS Duration : 88 ms Q-T Interval : 360 ms QTC Calculation(Bazett) : 435 ms Calculated P [place] : 67 degrees Calculated R [place] : 24 degrees Calculated T [place] : 47 degrees Normal sinus rhythm Normal ECG No previous ECGs available Confirmed by STACY ROSS MD ([id number]) on 07/09/2024 9:46:25 PM NAME : KYLE MCDANIEL PID : [id number] : 1960 Gender : Male Race : ORD : [id number] Procedure Date : Jul 09 2024 15:18:52 Edit Date : Jul 09 2024 21:46:29 Diagnosis: Normal sinus rhythm Normal ECG No previous ECGs available Confirmed by STACY ROSS MD ([id number]) on 07/09/2024 9:46:25 PM Test Reason : STAT Location : 0 : ED EDWR Overread By : STACY ROSS MD Edited By : STACY ROSS MD Referred By : , Acquired by : [id number], [facility] ED NOTEon 07-09-2024 ED NOTE HNO ID: [id number] Author: EMILIANO JANE RN Service: ? Author Type: Registered Nurse Type: ED Notes Filed: 07/09/2024 18:24 Note Text: Bed: 42-ED Expected date: Expected time: Means of arrival: Comments: [facility] ED PROV NOTEon 07-09-2024 ED PROV NOTE HNO ID: [id number] Author: EVANS JEAN MD Service: ? Author Type: Physician Type: ED Provider Notes Filed: 07/09/2024 23:40 Note Text: ED Provider Note Patient Name: Kyle Mcdaniel : 1960 SERVICE DATE: 07/09/24 CHIEF COMPLAINT Patient presents with: Diarrhea Nausea AND Vomiting: Patient states he has chronic pancreatitis and has had diarrhea since Jun 04. Nausea and vomiting about a month. His gas smells "rotten". Supposed to see pain mgmt tomorrow but can't handle anymore Nausea vomiting and diarrhea HISTORY Kyle Mcdaniel is a 63 year old male with PMH per EMR including alcohol abuse, CHF, diabetes, chronic pancreatitis, hyperlipidemia, presents with concern for nausea vomiting and diarrhea. Patient reports she has had diarrhea ongoing since June 04, with associated nausea, vomiting, and epigastric abdominal pain, reports symptoms feel like his pancreas is flaring up, with history of chronic pancreatitis, he reports abdominal pain has been ongoing since , he denies fever chills, cough, chest pain, shortness of breath, pain elsewhere throughout the abdomen, dysuria hematuria urinary frequency, hematemesis, hematochezia or melena. Patient denies recent antibiotic use, estimates 8 watery bowel movements per day. Patient reports he last drank alcohol 3 days ago, he denies feeling that he is in withdrawal. PAST MEDICAL HISTORY: as per HPI SOCIAL HISTORY: Per EMR history of tobacco use, alcohol use REVIEW OF SYSTEMS Pertinent positive and negatives as per HPI. PHYSICAL EXAM Vitals [07/09/24 1329] BP Pulse Temp Temp src Resp SpO2 Weight Height 119/87 (!) 96 36.9 ?C (98.4 ?F) Oral 20 95 % 99.8 kg (220 lb) 1.854 m (6' 1") General: no apparent distress, well appearing, no active vomiting Eyes: conjunctival noninjected, eyes tracking HEENT: airway patent, mucous membranes moist Cardiovascular: regular rhythm, normal rate Respiratory: non-labored breathing, breath sounds clear, no wheezing crackles or rhonchi, speaks in full senses Gastrointestinal: soft, non-distended, mild tenderness to palpation throughout, no localizing tenderness, no rigidity guarding Extremities: no obvious deformity, non edematous Integumentary: warm, dry Neurologic: Alert and oriented, nonslurred speech, answering questions appropriately, no tongue fasciculation, no tremulousness MEDICAL DECISION MAKING Systemic symptoms: Nausea History and Record Review Clinical information obtained from an independent historian. History obtained from or confirmed by: family member. Differential Diagnoses - See MDM Contributing Factors Social Determinants of Health significantly affecting care: alcohol use Chronic conditions affecting care: Chronic pancreatitis Medications iv contrast (radiology procedure) (has no administration in time range) ondansetron (PF) 4 mg injection (ZOFRAN) (4 mg INTRAVENOUS Given 07/09/24 1514) ondansetron (PF) 4 mg injection (ZOFRAN) (4 mg INTRAVENOUS Given 07/09/241923) HYDROmorphone (PF) 1 mg injection (DILAUDID) (1 mg INTRAVENOUS Given 07/09/241923) NaCl 0.9% 1,000 mL iv bolus (0 mL INTRAVENOUS Infusion Complete 07/09/242023) dicyclomine 10 mg cap(s) (BENTYL) (10 mg ORAL Given 07/09/241923) HYDROmorphone (PF) 0.5 mg injection (DILAUDID) (0.5 mg INTRAVENOUS Given 07/09/242046) Kyle Mcdaniel is a 63 year old male who presents as above, with approximately 1 month of persistent watery bowel movements/diarrhea, nausea, and constant epigastric abdominal pain, history of chronic pancreatitis, he reports pain feels equivalent to his pancreas flareups in the past, his abdominal exam is without localizing tenderness or peritoneal signs, he is afebrile with reassuring vitals, nontoxic-appearing, presentation concerning for differential diagnosis including recurrent pancreatitis, infectious diarrhea, workup initiated by my colleague to evaluate including CT abdomen pelvis, labs, EKG, will obtain stool studies, treat with Dilaudid, Zofran, IV fluids. Labs obtained, interpreted by me, notable for ethanol level negative, lipase within normal limits, no renal dysfunction, unremarkable LFTs, no leukocytosis, hemoglobin within normal limits EKG obtained, per my interpretation, notable for sinus rhythm, heart rate 88 bpm, WV QRS QTc within normal limits, normal axis, no acute ischemic ST segment changes. HS troponin less than 2.5 CT abdomen pelvis per radiologist interpretation stable masslike prominence of the pancreatic head with atrophia/resection of proximal portion, biliary stent remains with associated pneumobilia, there is worsening intermediate attenuation infiltration surrounding the celiac artery branches as well as the portal confluence which may reflect edema or fibrosis, recommend reevaluation short-term follow-up examination, prominent small bowel loops with distention within the left upper quadrant with ge (more content not included)... [facility] ED Triage Noteon 07-09-2024 ED Triage Note HNO ID: [id number] Author: SHOSHANA HICKMAN PA-C Service: ? Author Type: Physician Surgical Instrument Maker Type: ED Triage Notes Filed: 07/09/2024 13:32 Note Text: ED TRIAGE PROVIDER NOTE Patient Name: Kyle Mcdaniel Service Date: 07/09/24 BRIEF HPI: This is a 63 year old male who presents to the ED with: abdominal pain. Has history of chronic pancreatitis. Over the last month has had upper abdominal pain and vomiting. Continues to worsen. At times has diarrhea. Has been drinking intermittently. No fevers or chills. Feels worse than chronic pancreatitis BRIEF EXAM: NAD Awake and Alert Non labored breathing Tenderness diffusely of abdomen, guarding INITIAL WORKUP AND DECISION MAKING: Orders Placed This Encounter CT ABD/PEL W IVCON COMPREHENSIVE METABOLIC PANEL (BMP+LFT) LIPASE BLOOD SINGLE HIGH SENSITIVITY TROPONIN I CBC + AUTO DIFF Ethanol/Alcohol iv contrast (radiology procedure) ondansetron (PF) 4 mg injection (ZOFRAN) ECG COMPLETE SIGNATURE: Shoshana Hickman PA-C Normal [facility] Ethanol SerPl-mCncon 025 Ethanol [Mass/Vol] mg/dL Normal <0.010 [facility] Comment on above: Order Comment: Speci men Type: BLOOD SPECIMENOrdering Facility: [facility] Address: [address] [place] [address] Performed By: #### 2 4323-8, 3040-3, HSTROP, 5643-2 ####[facility] LABORATORYCLIA [id number] [place] [address] [place] HIGH SENSITIVITY TROPONIN Io n 07-09-2024 Tropinin I.cardiac panel High sensitivity method <2.5 Normal 0.0-54.0 [facility] Comment on above: Order Comment: Zenai men Type: BLOOD SPECIMENOrdering Facility: [facility] Address: [address] [place] [address] Performed By: #### 2 4323-8, 3040-3, HSTROP, 5643-2 ####[facility] LABORATORYCLIA [id number] [place] [address] [place] Lipase SerPl-cCncon 07-09-19 25 Lipase [Catalytic activity/Vol] 24 U/L Normal 12-60 [facility] Comment on above: Order Comment: Speci men Type: BLOOD SPECIMENOrdering Facility: [facility] Address: [address], [place] [address] Performed By: #### 2 4323-8, 3040-3, CHAO, 5643-2 ####[facility] LABORATORYCLIA [id number] [place] [id number] [place] Jayne 06-25-2024 CNPN Telephone (AGSPINE3) KYLE MCDANIEL ([id number]) 1960 M Date Time Provider Department 06/25/24 SEGUN ESCALONA AGSPINE3 During your visit today, we recorded the following information about you: Bart Garvin 06/25/2024 9:18 AM Signed Patient's called stating that they needed a release of care from us in order for this patient to be scheduled with [facility]. After review of the appointment on 05/10/24 this patient was only looking for Oxycodone and when he was told that we don't prescribe at the first appointment this patient left without being seen and appointment was cancelled. I have called and spoke with this patient's and informed her that we wouldn't do a release of care when he was never seen within our office. Patient's stated that on there end it is showing that this patient's appointment was completed. I stated that this appointment is showing that it was canceled because he left the office without being seen. Patient's gave me the phone number to [facility] of [phone]. I have called this number and they are closed today. Bart Berkowitz 06/27/2024 9:44 AM Signed Called over to [facility] and informed them that we would not be able to do this release of care as this patient was never seen within our office. The Nurse I spoke with stated that she would let scheduling know. Bart Garvin Allergies As of Date: 06/25/2024 Noted Allergy Reaction AZITHROMYCIN 11/08/2022 4 - Hives ERYTHROMYCIN 01/04/2023 4 - Hives TYLENOL (ACETAMINOPHEN) 12/30/2023 4 - Hives Date Reviewed: 06/11/2024 Reviewed by: Valerio Hackett MA - Fully Assessed Prescriptions as of 06/27/2024 - metoprolol succinate ER (TOPROL XL) 25 mg 24 hr tablet Take 0.5 tablets by mouth once daily. - lisinopril 2.5 mg tablet Take 1 tablet by mouth once daily. - lfahrp-ivpbjnqv-roexoai (CREON 12) 12,000-38,000 -60,000 unit delayed release capsule Take 1 capsule by mouth with meals and at bedtime. - ondansetron HCl (ZOFRAN ORAL) Take by mouth. - thiamine (VITAMIN B1) 100 mg tablet Take 1 tablet by mouth once daily. - insulin lispro (HUMALOG KWIKPEN INSULIN) 100 unit/mL Inject 5 Units subcutaneously three times a day with meals. - aspirin, enteric coated (ASPIRIN, ENTERIC COATED) 81 mg EC tablet Take 81 mg by mouth once daily. - traZODone (DESYREL) 100 mg tablet Take 100 mg by mouth daily at bedtime. - thiamine (VITAMIN B1) 100 mg tablet Take 100 mg by mouth once daily. - tamsulosin (FLOMAX) 0.4 mg Take 0.4 mg by mouth once daily. - rosuvastatin (CRESTOR) 40 mg tablet Take 40 mg by mouth once daily. - metFORMIN ER (GLUMETZA) 1,000 mg 24 hr tablet Take 1,000 mg by mouth two times a day. - sertraline (ZOLOFT) 50 mg tablet Take 50 mg by mouth once daily. - montelukast (SINGULAIR) 10 mg tablet Take 10 mg by mouth daily at bedtime. - LORATADINE ORAL Take 10 mg by mouth once daily. - LANTUS SOLOSTAR U-100 INSULIN 100 unit/mL (3 mL) Inject 25 Units subcutaneously two times a day. Problem List As Of Date 06/25/2024 Noted Resolved Chronic alcoholic pancreatitis (HCC) [K86.0] 07/12/2023 BPH (benign prostatic hyperplasia) [N40.0] 07/12/2023 HLD (hyperlipidemia) [E78.5] 07/12/2023 Diabetes mellitus type 2, controlled, without c*07/12/2023 Depression [F32.A] 07/12/2023 Seasonal allergies [J30.2] 07/12/2023 Pancreatic cirrhosis [K86.89] 07/13/2023 Nicotine use disorder, F17.2 [F17.200] 12/30/2023 Liver abscess [K75.0] 12/30/2023 Recurrent abdominal pain [R10.9] 12/31/2023 Chronic pancreatitis (HCC) [K86.1] 12/31/2023 Poor dentition [K08.9] 12/31/2023 Lesion of bladder [N32.9] 12/31/2023 Prostate cancer (HCC) [C61] 02/23/2024 Prostate nodule [N40.2] 02/23/2024 Encounter Status:Closed by BART GARVIN on 06/25/24 Normal [facility] CBC W Auto Differential pane l (Bld)on 06-21-2024 Basophils (Bld) [#/Vol] 0.06 10*3/uL Normal <0.11 [facility] Comment on above: Order Comment: Speci men Type: BLOOD SPECIMEN Ordering Facility: [facility] Address: [address] [place] [address] Performed By: #### 5 7021-8 #### [facility] CLIA [id number] [address] [place] [address] [place] Basophils/100 WBC (Bld) 0.9 % Normal [facility] Comment on above: Order Comment: Speci men Type: BLOOD SPECIMEN Ordering Facility: [facility] Address: [address] [place] [address] Performed By: #### 5 7021-8 #### [facility] CLIA [id number] [address] [place] [address] [place] Differential cell count method Nom (Bld) Auto Normal [facility] Comment on above: Order Comment: Speci men Type: BLOOD SPECIMEN Ordering Facility: [facility] Address: [address] [place] [address] Performed By: #### 5 7021-8 #### [facility] CLIA [id number] [address] [place] [address] [place] Eosinophils (Bld) [#/Vol] 0.21 10*3/uL Normal <0.46 [facility] Comment on above: Order Comment: Speci men Type: BLOOD SPECIMEN Ordering Facility: [facility] Address: [address] [place] [address] Performed By: #### 5 7021-8 #### [facility] CLIA [id number] [address] [place] [address] [place] Eosinophils/100 WBC (Bld) 3.1 % Normal [facility] Comment on above: Order Comment: Speci men Type: BLOOD SPECIMEN Ordering Facility: [facility] Address: [address] [place] [address] Performed By: #### 5 7021-8 #### [facility] CLIA [id number] [address] [place] [address] [place] Erythrocyte distribution width (RBC) [Ratio] 12.3 % Normal 11.5-15.0 [facility] Comment on above: Order Comment: Speci men Type: BLOOD SPECIMEN Ordering Facility: [facility] Address: [address] [place] [address] Performed By: #### 5 7021-8 #### [facility] CLIA [id number] [address] [place] [address] [place] Hematocrit (Bld) [Volume fraction] 43.8 % Normal 39.0-51.0 [facility] Comment on above: Order Comment: Speci men Type: BLOOD SPECIMEN Ordering Facility: [facility] Address: [address] [place] [address] Performed By: #### 5 7021-8 #### [facility] CLIA [id number] [address] [place] [address] [place] Hemoglobin (Bld) [Mass/Vol] 15.0 g/dL Normal 13.0-17.0 [facility] Comment on above: Order Comment: Speci men Type: BLOOD SPECIMEN Ordering Facility: [facility] Address: [address] [place] [address] Performed By: #### 5 7021-8 #### [facility] CLIA [id number] [address] [place] [address] [place] Immature granulocytes (Bld) [#/Vol] 10*3/uL Normal <0.10 [facility] Comment on above: Order Comment: Speci men Type: BLOOD SPECIMEN Ordering Facility: [facility] Address: [address] [place] [address] Performed By: #### 5 7021-8 #### [facility] CLIA [id number] [address] [place] [address] [place] Immature granulocytes/100 WBC (Bld) 0.1 % Normal [facility] Comment on above: Order Comment: Speci men Type: BLOOD SPECIMEN Ordering Facility: [facility] Address: [address] [place] [address] Performed By: #### 5 7021-8 #### [facility] CLIA [id number] [address] [place] [address] [place] Lymphocytes (Bld) [#/Vol] 2.41 10*3/uL Normal 1.00-4.00 [facility] Comment on above: Order Comment: Speci men Type: BLOOD SPECIMEN Ordering Facility: [facility] Address: [address] [place] [address] Performed By: #### 5 7021-8 #### [facility] CLIA [id number] [address] [place] [address] [place] Lymphocytes/100 WBC (Bld) 35.6 % Normal [facility] Comment on above: Order Comment: Speci men Type: BLOOD SPECIMEN Ordering Facility: [facility] Address: [address] [place] [address] Performed By: #### 5 7021-8 #### [facility] CLIA [id number] [address] [place] [address] [place] MCH (RBC) [Entitic mass] 31.0 pg Normal 26.0-34.0 [facility] Comment on above: Order Comment: Speci men Type: BLOOD SPECIMEN Ordering Facility: [facility] Address: [address] [place] [address] Performed By: #### 5 7021-8 #### [facility] CLIA [id number] [address] [place] [address] [place] MCHC (RBC) [Mass/Vol] 34.2 g/dL Normal 30.5-36.0 [facility] Comment on above: Order Comment: Speci men Type: BLOOD SPECIMEN Ordering Facility: [facility] Address: [address] [place] [address] Performed By: #### 5 7021-8 #### [facility] CLIA [id number] [address] [place] [address] [place] MCV (RBC) [Entitic vol] 90.5 fL Normal 80.0-100.0 [facility] Comment on above: Order Comment: Speci men Type: BLOOD SPECIMEN Ordering Facility: [facility] Address: [address] [place] [address] Performed By: #### 5 7021-8 #### [facility] CLIA [id number] [address] [place] [address] [place] Monocytes (Bld) [#/Vol] 0.45 10*3/uL Normal <0.87 [facility] Comment on above: Order Comment: Speci men Type: BLOOD SPECIMEN Ordering Facility: [facility] Address: [address] [place] [address] Performed By: #### 5 7021-8 #### [facility] CLIA [id number] [address] [place] [address] [place] Monocytes/100 WBC (Bld) 6.6 % Normal [facility] Comment on above: Order Comment: Speci men Type: BLOOD SPECIMEN Ordering Facility: [facility] Address: [address] [place] [address] Performed By: #### 5 7021-8 #### [facility] CLIA [id number] [address] [place] [address] [place] Neutrophils (Bld) [#/Vol] 3.63 10*3/uL Normal 1.45-7.50 [facility] Comment on above: Order Comment: Speci men Type: BLOOD SPECIMEN Ordering Facility: [facility] Address: [address] [place] [address] Performed By: #### 5 7021-8 #### [facility] CLIA [id number] [address] [place] [address] [place] Neutrophils/100 WBC (Bld) 53.7 % Normal [facility] Comment on above: Order Comment: Speci men Type: BLOOD SPECIMEN Ordering Facility: [facility] Address: [address] [place] [address] Performed By: #### 5 7021-8 #### [facility] CLIA [id number] [address] [place] [address] [place] Nucleated RBC (Bld) [#/Vol] 10*3/uL Normal <0.01 [facility] Comment on above: Order Comment: Speci men Type: BLOOD SPECIMEN Ordering Facility: [facility] Address: [address] [place] [address] Performed By: #### 5 7021-8 #### [facility] CLIA [id number] [address] [place] [address] [place] Nucleated RBC/100 WBC (Bld) [Ratio] 0.0 /[address] [facility] Comment on above: Order Comment: Speci men Type: BLOOD SPECIMEN Ordering Facility: [facility] Address: [address] [place] [address] Performed By: #### 5 7021-8 #### [facility] CLIA [id number] [address] [place] [address] [place] Platelet mean volume (Bld) [Entitic vol] 10.2 fL Normal 9.0-12.7 [facility] Comment on above: Order Comment: Speci men Type: BLOOD SPECIMEN Ordering Facility: [facility] Address: [address] [place] [address] Performed By: #### 5 7021-8 #### [facility] CLIA [id number] [address] [place] [address] [place] Platelets (Bld) [#/Vol] 218 10*3/uL Normal 150-400 [facility] Comment on above: Order Comment: Speci men Type: BLOOD SPECIMEN Ordering Facility: [facility] Address: [address] [place] [address] Performed By: #### 5 7021-8 #### [facility] CLIA [id number] [address] [place] [address] [place] RBC (Bld) [#/Vol] 4.84 10*6/uL Normal 4.20-6.00 [facility] Comment on above: Order Comment: Speci men Type: BLOOD SPECIMEN Ordering Facility: [facility] Address: [address] [place] [address] Performed By: #### 5 7021-8 #### [facility] CLIA [id number] [address] [place] [address] [place] WBC (Bld) [#/Vol] 6.77 10*3/uL Normal 3.70-11.00 [facility] Comment on above: Order Comment: Speci men Type: BLOOD SPECIMEN Ordering Facility: [facility] Address: [address] [place] [address] Performed By: #### 5 7021-8 #### [facility] CLIA [id number] [address] [place] [address] [place] Comprehensive metabolic 2000 panelon 06-21-2024 Albumin [Mass/Vol] 4.1 g/dL Normal 3.9-4.9 [facility] Comment on above: Order Comment: Speci men Type: BLOOD SPECIMENOrdering Facility: [facility] Address: [address] [place] [address] Performed By: #### 5 643-2, 80701-9, 3040-3 ####[facility] [id number] [place] [address] [place] ALP [Catalytic activity/Vol] 116 U/L High 38-113 [facility] Comment on above: Order Comment: Speci men Type: BLOOD SPECIMENOrdering Facility: [facility] Address: [address] [place] [address] Performed By: #### 5 643-2, 67047-5, 0-3 ####[facility] [id number] [place] [address] [place] ALT [Catalytic activity/Vol] 13 U/L Normal 10-54 [facility] Comment on above: Order Comment: Speci men Type: BLOOD SPECIMENOrdering Facility: [facility] Address: [address] [place] [address] Performed By: #### 5 643-2, 38326-8, 0-3 ####[facility] [id number] [place] [address] [place] Anion gap [Moles/Vol] 14 mmol/L Normal 8-15 [facility] Comment on above: Order Comment: Speci men Type: BLOOD SPECIMENOrdering Facility: [facility] Address: [address] [place] [address] Performed By: #### 5 643-2, 71510-5, 3039-3 ####[facility] [id number] [place] [address] [place] AST [Catalytic activity/Vol] 14 U/L Normal 14-40 [facility] Comment on above: Order Comment: Speci men Type: BLOOD SPECIMENOrdering Facility: [facility] Address: [address] [place] [address] Performed By: #### 5 643-2, 39966-6, 3039-3 ####[facility] [id number] [place] [address] [place] Bilirubin [Mass/Vol] 0.3 mg/dL Normal 0.2-1.[address] [facility] [place] Comment on above: Order Comment: Speci men Type: BLOOD SPECIMENOrdering Facility: [facility] Address: [address] [place] [address] Performed By: #### 5 643-2, 14550-8, 0-3 ####[facility] [id number] [place] [address] [place] Calcium [Mass/Vol] 9.6 mg/dL Normal 8.5-10.2 [facility] Comment on above: Order Comment: Speci men Type: BLOOD SPECIMENOrdering Facility: [facility] Address: [address] [place] [address] Performed By: #### 5 643-2, 12040-2, 0-3 ####[facility] [id number] [place] [address] [place] Chloride [Moles/Vol] 99 mmol/L Normal 98-[address] [facility] Comment on above: Order Comment: Speci men Type: BLOOD SPECIMENOrdering Facility: [facility] Address: [address] [place] [address] Performed By: #### 5 643-2, 77366-3, 3039-3 ####[facility] [id number] [place] [address] [place] CO2 [Moles/Vol] 24 mmol/L Normal 22-30 [facility] Comment on above: Order Comment: Speci men Type: BLOOD SPECIMENOrdering Facility: [facility] Address: [address] [place] [address] Performed By: #### 5 643-2, 14266-7, 3039-3 ####[facility] [id number] [place] [address] [place] Creatinine [Mass/Vol] 0.81 mg/dL Normal 0.73-1.22 [facility] Comment on above: Order Comment: Speci men Type: BLOOD SPECIMENOrdering Facility: [facility] Address: [address] [place] [address] Performed By: #### 5 643-2, 52041-2, 3039-3 ####[facility] [id number] [place] [address] [facility] Creatinine and Glomerular filtration rate.predicted panel (S/P/Bld) 98 mL/min/1.73m??? Normal >=60 [facility] Comment on above: Order Comment: Speci men Type: BLOOD SPECIMENOrdering Facility: [facility] Address: [address] [place] [address] Result Comment: Genny mated Glomerular Filtration Rate (eGFR) is calculated using the 2020 CKD-EPI creatinine equation. This equation utilizes serum creatinine, sex, and age as parameters. The creatinine assay has traceable calibration to isotope dilution-mass spectrometry. Refer to KDIGO guidelines for clinical interpretation. In patients with unstable renal function, e.g. those with acute kidney injury, the eGFR may not accurately reflect actual GFR. Performed By: #### 5 643-2, 37407-1, 3039-3 ####[facility] [id number] [place] [address] [place] Glucose [Mass/Vol] 158 mg/dL High 74-99 [facility] Comment on above: Order Comment: Davis atkinson Type: BLOOD SPECIMENOrdering Facility: [facility] Address: [address] [place] [address] Result Comment: The [place] Diabetes Association (ADA) provides guidance for cutoff values for fasting glucose and random glucose. The ADA defines fasting as no caloric intake for at least 8 hours. Fasting plasma glucose results between 100 to 125 mg/dL indicate increased risk for diabetes (prediabetes). Fasting plasma glucose results greater than or equal to 126 mg/dL meet the criteria for diagnosis of diabetes. In the absence of unequivocal hyperglycemia, results should be confirmed by repeat testing. In a patient with classic symptoms of hyperglycemia or hyperglycemic crisis, random plasma glucose results greater than or equal to 200 mg/dL meet the criteria for diagnosis of diabetes. Reference: Standards of Medical Care in Diabetes 2016, [place] Diabetes Association. Diabetes Care. 2016.39(Suppl 1). Performed By: #### 5 643-2, 38299-1, 3039-3 ####[facility] [id number] [place] [address] [place] Potassium [Moles/Vol] 4.0 mmol/L Normal 3.7-5.1 [facility] Comment on above: Order Comment: Davis atkinson Type: BLOOD SPECIMENOrdering Facility: [facility] Address: [address] [id number] Performed By: #### 5 643-2, 60671-2, 0-3 ####[facility] [id number] [place] [address] [place] Protein [Mass/Vol] 6.9 g/dL Normal 6.3-8.0 [facility] Comment on above: Order Comment: Speci men Type: BLOOD SPECIMENOrdering Facility: [facility] Address: [address] [place] [address] Performed By: #### 5 643-2, 64642-8, 3040-3 ####[facility]IA [id number] [place] [address] [place] Sodium [Moles/Vol] 137 mmol/L Normal 136-144 [facility] Comment on above: Order Comment: Speci men Type: BLOOD SPECIMENOrdering Facility: [facility] Address: [address] [place] [address] Performed By: #### 5 643-2, 89072-4, 3040-3 ####[facility] LABIA [id number] [address] [place] [address] [place] Urea nitrogen [Mass/Vol] 11 mg/dL Normal 9-24 [facility] Comment on above: Order Comment: Speci men Type: BLOOD SPECIMENOrdering Facility: [facility] Address: [address] [place] [address] Performed By: #### 5 643-2, 21451-3, 3040-3 ####[facility]IA [id number] [place] [address] [facility] [place] ED NOTEon 06-21-2024 ED NOTE HNO ID: [id number] Author: VERITO SOMMERS RN Service: Nursing Author Type: Registered Nurse Type: ED Notes Filed: 06/21/2024 02:09 Note Text: Pt's spouse here to take patient home. Pt stable on d/c Normal [facility] ED NOTE HNO ID: [id number] Author: JOCY VEGAS, PATSY Service: ? Author Type: Registered Nurse Type: ED Notes Filed: 06/21/2024 00:38 Note Text: Pt with chronic pancreatitis. Pt attempting to cure it with drinking a pint of black velvet whiskey. Pt also c/o something "Swishing" around in head [facility] ED PROV NOTEon 06-21-2024 ED PROV NOTE HNO ID: [id number] Author: AKOSUA HERNANDEZ MD Service: ? Author Type: Physician Type: ED Provider Notes Filed: 06/21/2024 01:46 Note Text: ED Provider Note Patient Name: Kyle Mcdaniel : 1960 SERVICE DATE: 06/21/24 History Patient presents with: Abdominal Pain: pancreatitis This patient is a 63-year-old male who presents with exacerbation of chronic pancreatitis. Patient reports history of chronic pancreatitis with chronic abdominal pain but has been worse today. Patient states that he was drinking whiskey today. Patient has previously seen pain management. Patient recently had a celiac plexus block. He is seeing general surgery at [facility]. He did receive a recent prescription for oxycodone from them and was referred to pain management although he reports he does not yet have an appointment with pain management. PAST MEDICAL HISTORY Diagnosis Date - Alcohol abuse - CHF (congestive heart failure) (HCC) - Diabetes mellitus (HCC) - Hx of chronic pancreatitis - Hyperlipemia - TIA (transient ischemic attack) PAST SURGICAL HISTORY Procedure Laterality Date - ABDOMINAL SURGERY HX No family history on file. Social History Tobacco Use - Smoking status: Every Day Current packs/day: 1.00 Average packs/day: 1 pack/day for 20.0 years (20.0 ttl pk-yrs) Types: Cigarettes - Smokeless tobacco: Former Types: Snuff - Tobacco comments: As per pt "I smoke 12-15 smokes a day, but when I drink I know its way more." Vaping Use - Vaping status: Never Used Substance and Sexual Activity - Alcohol use: Yes Comment: 1 pint liquor per week, depends on weeks - Drug use: Never - Sexual activity: Yes Partners: Female ALLERGIES Allergen Reactions - Azithromycin Hives - Erythromycin Hives - Tylenol [Acetaminop* Hives Review of Systems Physical Exam Vitals [06/21/24 0036] BP Pulse Temp Temp src Resp SpO2 Weight Height 137/95 75 36.8 ?C (98.2 ?F) Oral 18 98 % 101 kg (222 lb 10.6 oz) -- Physical Exam Vitals reviewed. HENT: Head: Normocephalic. Mouth/Throat: Mouth: Mucous membranes are moist. Eyes: Extraocular Movements: Extraocular movements intact. Cardiovascular: Rate and Rhythm: Normal rate and regular rhythm. Pulmonary: Effort: Pulmonary effort is normal. Abdominal: Palpations: Abdomen is soft. Comments: Epigastric abdominal tenderness without guarding rebound rigidity or distention Skin: General: Skin is warm and dry. Neurological: Mental Status: He is alert. Psychiatric: Mood and Affect: Mood normal. Diagnostic Testing ED Labs Ordered and Reviewed - No data to display Procedures ED Course / Clinical Impression Clinical Impressions as of 06/21/24145 Chronic abdominal pain MDM / Disposition / Plan Labs are notable for alkaline phosphatase of 116, lipase is 10. Alcohol is 100, no leukocytosis. Patient was treated with fluids morphine Zofran. I recommended patient follow-up as an outpatient, patient discharged. SIGNATURE: MD Aaron Diana JOSHUA 06/21/[address] [facility] Ethanol SerPl-mCncon 024 Ethanol [Mass/Vol] 100 mg/dL High <11 [facility] Comment on above: Order Comment: Speci men Type: BLOOD SPECIMENOrdering Facility: [facility] Address: [address] [place] [address] Result Comment: Valu es > 80 mg/dL may indicate intoxication Performed By: #### 5 643-2, 20884-4, 3040-3 ####[facility] [id number] [place] [address] [place] Lipase SerPl-cCncon 06-21-20 24 Lipase [Catalytic activity/Vol] 10 U/L Low 16-61 [facility] Comment on above: Order Comment: Speci men Type: BLOOD SPECIMENOrdering Facility: [facility] Address: [address] [place] [address] Performed By: #### 5 643-2, 27750-4, 3040-3 ####[facility] [id number] [place] [address] [place] CNOVon 06-11-2024 CNOV Office Visit (AGGENS 3) KYLE MCDANIEL ([id number]) 1960 M Date Time Provider Department 06/11/24 1:45 PM GIA CALLOWAY3 During your visit today, we recorded the following information about you: Pulse Blood pressure Weight Height 78/minute 122/64 102.5 kg 1.854 m Gia Calloway MD 06/11/2024 4:40 PM Signed [facility] SURGERY PROGRESS NOTE Subjective INTERVAL HISTORY OF PRESENT ILLNESS: Having daily chronic abdominal pain and belching/bloating that is worse with food Feels that the celiac plexus block made his pain worse Careful about what he eats No significant weight loss Chronic nausea He states that he has been drinking alcohol regularly, which helps with the pain Objective PHYSICAL EXAM: BP 122/64 Pulse 78 Ht 6' 1" (1.85m) Wt 226 lb (102.5kg) SpO2 97% BMI 29.82 kg/(m2). Physical Exam Performed GENERAL: Alert, no distress, cooperative LUNGS: Negative ABDOMEN: Negative The remainder of the physical exam is noncontributory. DATA: Diagnostic tests reviewed for today's visit: Most recent labs and imaging results. Assessment/Plan 63 year old male with history of severe acute pancreatitis managed surgically in [place] (in the setting of EtOH use) in 2018 and more recent recurrent acute pancreatitis managed at (details unclear) who was admitted at [facility] with liver abscess and cholangitis managed with an IR drain and ERCP with stent placement. MRI concerning for pancreatic mass/malignancy. EUS/FNA showed atypical cells. CA19-9 normal. Overall picture consistent with chronic pancreatitis. --Sent pain rx to pharmacy today --Consult pain management --Consult addiction medicine --Phone check in with Shoshana in 6 weeks --May need stent exchange if not going to surgery Jumana Calloway MD [facility] Surgeon Gia Calloway MD 06/11/2024 5:15 PM Signed Addended by: GIA CALLOWAY on: 06/11/2024 05:15 PM Modules accepted: Orders Gia Calloway MD 06/12/2024 2:08 PM Signed Addended by: GIA CALLOWAY on: 06/12/2024 02:08 PM Modules accepted: Orders Allergies As of Date: 06/11/2024 Noted Allergy Reaction AZITHROMYCIN 11/08/2022 4 - Hives ERYTHROMYCIN 01/04/2023 4 - Hives TYLENOL (ACETAMINOPHEN) 12/30/2023 4 - Hives Date Reviewed: 06/11/2024 Reviewed by: Valerio Hackett MA - Fully Assessed Reason for Visit: Follow Up [171] Cmt: F/U Cardiac testing, with labs, having diarrhea really bad after he eats Primary Visit Diagnosis:Chronic pancreatitis, unspecified pancreatitis type (HCC) [K86.1] Order(s):[facility] CONFERENCE - [facility] [APPT54] Order #: [id number]: 1 FUTURE oxyCODONE IR (ROXICODONE) 5 mg immediate release tabletTake 1 tablet by mouth every 6 hours as needed for pain for up to 7 days.Disp: 28 tabletRfl: 0 Prescriptions as of 06/12/2024 - oxyCODONE IR (ROXICODONE) 5 mg immediate release tablet Take 1 tablet by mouth every 6 hours as needed for pain for up to 7 days. - metoprolol succinate ER (TOPROL XL) 25 mg 24 hr tablet Take 0.5 tablets by mouth once daily. - lisinopril 2.5 mg tablet Take 1 tablet by mouth once daily. - etcwrh-hjiudbut-covmntr (CREON 12) 12,000-38,000 -60,000 unit delayed release capsule Take 1 capsule by mouth with meals and at bedtime. - ondansetron HCl (ZOFRAN ORAL) Take by mouth. - thiamine (VITAMIN B1) 100 mg tablet Take 1 tablet by mouth once daily. - insulin lispro (HUMALOG KWIKPEN INSULIN) 100 unit/mL Inject 5 Units subcutaneously three times a day with meals. - aspirin, enteric coated (ASPIRIN, ENTERIC COATED) 81 mg EC tablet Take 81 mg by mouth once daily. - traZODone (DESYREL) 100 mg tablet Take 100 mg by mouth daily at bedtime. - thiamine (VITAMIN B1) 100 mg tablet Take 100 mg by mouth once daily. - tamsulosin (FLOMAX) 0.4 mg Take 0.4 mg by mouth once daily. - rosuvastatin (CRESTOR) 40 mg tablet Take 40 mg by mouth once daily. - metFORMIN ER (GLUMETZA) 1,000 mg 24 hr tablet Take 1,000 mg by mouth two times a day. - sertraline (ZOLOFT) 50 mg tablet Take 50 mg by mouth once daily. - montelukast (SINGULAIR) 10 mg tablet Take 10 mg by mouth daily at bedtime. - LORATADINE ORAL Take 10 mg by mouth once daily. - LANTUS SOLOSTAR U-100 INSULIN 100 unit/mL (3 mL) Inject 25 Units subcutaneously two times a day. Problem List As Of Date 06/11/2024 Noted Resolved Chronic alcoholic pancreatitis (HCC) [K86.0] 07/12/2023 BPH (benign prostatic hyperplasia) [N40.0] 07/12/2023 HLD (hyperlipidemia) [E78.5] 07/12/2023 Diabetes mellitus type 2, controlled, without c*07/12/2023 Depression [F32.A] 07/12/2023 Seasonal allergies [J30.2] 07/12/2023 Pancreatic cirrhosis [K86.89] 07/13/2023 Nicotine use disorder, F17.2 [F17.200] 12/30/2023 Liver abscess [K75.0] 12/30/2023 Recurrent abdominal pain [R10.9] 12/31/2023 Chronic pancreatitis (HCC) [K86.1] more content not included)... Normal [facility] PHOSPHATIDYLETHANOL (PETH)on 06-06-2024 EER PETH See Note [facility] Comment on above: Order Comment: Speci men Type: BLOOD SPECIMENOrdering Facility: [facility] Address: [address] [place] [address] Result Comment: Auth orized individuals can access the [facility] Enhanced Report using the following link: [email or web address] Performed By: #### P ETH ####[facility] [id number] [place] [address] PETH 16:0/18.2 (PLPETH) 314 ng/mL [facility] Comment on above: Order Comment: Speci men Type: BLOOD SPECIMENOrdering Facility: [facility] Address: [address] [place] [address] Result Comment: Refe rence ranges are not well established. Performed By: #### P ETH ####[facility]IESCLIA [id number] [place] [address] PETH 16:0/18:1 (POPETH) 315 ng/mL [facility] Comment on above: Order Comment: Speci men Type: BLOOD SPECIMENOrdering Facility: [facility] Address: [address] [place] [address] Result Comment: PEth 16:0/18:1 (POPEth) Less than 10 ng/mL............Not detected Less than 20 ng/mL............Abstinence or light alcohol consumption 20 - 200 ng/mL................Moderate alcohol consumption Greater than 200 ng/mL........Heavy alcohol consumption or chronic alcohol use (Reference: Amanda Smiley and Maria Del Rosario Carey 2018 J. Forensic Sci) Performed By: #### P ETH ####[facility]IESCLIA [id number] [place] [address] PETH INTERPRETATION See Comment Normal [facility] [place] Comment on above: Order Comment: Speci men Type: BLOOD SPECIMENOrdering Facility: [facility] Address: [address] [place] [address] Result Comment: Phos phatidylethanol (PEth) is a group of phospholipids formed in the presence of ethanol, phospholipase D and phosphatidylcholine. PEth is known to be a direct alcohol biomarker. The predominant PEth homologues are PEth 16:0/18:1 (POPEth) and PEth 16:0/18:2 (PLPEth), which account for 37-46% and 26-28% of the total PEth homologues, respectively. PEth is incorporated into the phospholipid membrane of red blood cells and has a general half-life of 4-10 days and a window of detection of 2-4 weeks. However, the window of detection is longer in individuals who chronically or excessively consume alcohol. The limit of quantification is 10 ng/mL. Serial monitoring of PEth may be helpful in monitoring alcohol abstinence over time. PEth results should be interpreted in the context of the patient's clinical and behavioral history. Patients with advanced liver disease may have falsely elevated PEth concentrations (Madiha LOWE et al 2018, Alcoholism Clinical & Experimental Research). This test was developed and its performance characteristics determined by [facility]. It has not been cleared or approved by the U.S. Food and Drug Administration. This test was performed in a CLIA-certified laboratory and is intended for clinical purposes. Performed By: [facility] [address] [place] [address] Bill Adjuster: Brendan Amaro MD, PhD CLIA Number: [id number] Performed By: #### P ETH ####[employer] [facility] [id number] [place] [id number] [facility] 06-04-2024 [facility] Telephone (AGCARDPOB ) KLYE MCDANIEL ([id number]) 1960 M Date Time Provider Department 06/04/24 KEVIN MOLINA During your visit today, we recorded the following information about you: Opal Springer LPN 06/04/2024 2:45 PM Signed ----- Message from Kevin Molina MD sent at 06/04/2024 2:41 PM EST ----- Can you please let Mr. Mcdaniel know that his nuclear stress test was unremarkable, without evidence of myocardial ischemia or scar. As such, he will be at overall moderate risk of cardiac complications from an anticipated elevated risk intraperitoneal surgery. Do we have a preoperative cardiac risk assessment form for him for his surgery? Thanks, MD Racheal Brito Taylor, LPN 06/04/2024 2:49 PM Signed Left message for Mr. Mcdaniel to call [facility] for test results. [facility] phone number provided. YESENIA Byrd Stacey, RN 06/04/2024 3:33 PM Signed Spoke with Notified of stress test results and Dr Molina's message on clearance. Mrs diego pt does not have a surgery date yet. He has an appointment with the surgeon 06/11/24. She will ask surgeon staff to send a clearance form. Araceli Antony RN Allergies As of Date: 06/04/2024 Noted Allergy Reaction AZITHROMYCIN 11/08/2022 4 - Hives ERYTHROMYCIN 01/04/2023 4 - Hives TYLENOL (ACETAMINOPHEN) 12/30/2023 4 - Hives Date Reviewed: 05/31/2024 Reviewed by: Reny Baptiste RN - Fully Assessed Reason for Visit: Results [95] Prescriptions as of 06/04/2024 - metoprolol succinate ER (TOPROL XL) 25 mg 24 hr tablet Take 0.5 tablets by mouth once daily. - lisinopril 2.5 mg tablet Take 1 tablet by mouth once daily. - ljjenr-bsbbdfvg-fxovcep (CREON 12) 12,000-38,000 -60,000 unit delayed release capsule Take 1 capsule by mouth with meals and at bedtime. - ondansetron HCl (ZOFRAN ORAL) Take by mouth. - thiamine (VITAMIN B1) 100 mg tablet Take 1 tablet by mouth once daily. - insulin lispro (HUMALOG KWIKPEN INSULIN) 100 unit/mL Inject 5 Units subcutaneously three times a day with meals. - aspirin, enteric coated (ASPIRIN, ENTERIC COATED) 81 mg EC tablet Take 81 mg by mouth once daily. - traZODone (DESYREL) 100 mg tablet Take 100 mg by mouth daily at bedtime. - thiamine (VITAMIN B1) 100 mg tablet Take 100 mg by mouth once daily. - tamsulosin (FLOMAX) 0.4 mg Take 0.4 mg by mouth once daily. - rosuvastatin (CRESTOR) 40 mg tablet Take 40 mg by mouth once daily. - metFORMIN ER (GLUMETZA) 1,000 mg 24 hr tablet Take 1,000 mg by mouth two times a day. - sertraline (ZOLOFT) 50 mg tablet Take 50 mg by mouth once daily. - montelukast (SINGULAIR) 10 mg tablet Take 10 mg by mouth daily at bedtime. - LORATADINE ORAL Take 10 mg by mouth once daily. - LANTUS SOLOSTAR U-100 INSULIN 100 unit/mL (3 mL) Inject 25 Units subcutaneously two times a day. Problem List As Of Date 06/04/2024 Noted Resolved Chronic alcoholic pancreatitis (HCC) [K86.0] 07/12/2023 BPH (benign prostatic hyperplasia) [N40.0] 07/12/2023 HLD (hyperlipidemia) [E78.5] 07/12/2023 Diabetes mellitus type 2, controlled, without c*07/12/2023 Depression [F32.A] 07/12/2023 Seasonal allergies [J30.2] 07/12/2023 Pancreatic cirrhosis [K86.89] 07/13/2023 Nicotine use disorder, F17.2 [F17.200] 12/30/2023 Liver abscess [K75.0] 12/30/2023 Recurrent abdominal pain [R10.9] 12/31/2023 Chronic pancreatitis (HCC) [K86.1] 12/31/2023 Poor dentition [K08.9] 12/31/2023 Lesion of bladder [N32.9] 12/31/2023 Prostate cancer (HCC) [C61] 02/23/2024 Prostate nodule [N40.2] 02/23/2024 Encounter Status:Closed by ARACELI ANTONY on 06/04/24 Normal [facility] NM CARDIAC PERF STRESS/PHARM on 06-03-2024 NM CARDIAC PERF STRESS/PHARM * * *Final Report* * * DATE OF EXAM: Jun 03 2024 10:50AM [facility] 0006 - NM CARDIAC PERF STRESS/PHARM / PROCEDURE REASON: Systolic dysfunction without heart failure * * * * Physician Interpretation * * * * Stress Finance Broker Report: [facility] Date of service: 06/03/2024 8:42:00 AM Supervising physician: Kevin Molina MD PATIENT: Name: KYLE MCDANIEL Age: 63 years Gender: M The supervising physician was in the department and immediately available. * * * Final * * * ---- PATIENT: Name: KYLE MCDANIEL Age: 63 years Gender: M CONCLUSIONS: 1. SPECT Perfusion Study: Normal. 2. There is no scintigraphic evidence for inducible ischemia. 3. No evidence of scarred myocardium. 4. Left ventricle is normal in size. The left ventricle systolic function is normal. 5. Right ventricle is normal in size. The right ventricle systolic function is normal. 6. This is a low risk scan. Gated Stress IR LVEF % 62 Prior Study Comparison No prior nuclear cardiology exam available for comparison. Nuclear Med Report:1-Day Gated SPECT Myocardial Perfusion with Regadenoson Stress: Myocardial perfusion imaging was performed at rest 30 minutes following the IV injection of the radiotracer. The patient received 0.4 mg of regadenoson, via rapid IV push, immediately followed by radiotracer IV. Gated post stress tomographic imaging was performed 30 to 60 minutes later. See administered radiotracer and doses below. [facility] Date of service: 06/03/2024 8:42:00 AM Ordering Physician: KEVIN MOLINA. Requesting Physician: Indication: Assessment for suspected CAD and Preop evaluation for noncardiac surgery with low/intermediate clinical risk Interpreting physician: Kevin Molina MD Previous Cardiovascular Interventions: Cardiomyopath, Stage B Heart Failure. Last EF 45% Height: 185.42 cm BSA: 2.33 m? Weight: 105.24 kg BMI: 30.6 kg/m? Imaging Protocol Limitation Reason G.I. uptake and Diaphragmatic attenuation. Exam Type: Rest Stress Radiopharm: Tc-99m Tetrofosmin Tc-99m Tetrofosmin Dosage(mCi): 13.3 52.1 Stress Agent: Regadenoson 0.4mg Supply provided from [facility] Resting Blood Press: 117/77 mmHg Image Quality The overall study imaging quality was deemed to be fair. The following technical issues were noted: G.I. uptake and Diaphragmatic attenuation. FINDINGS: Left Ventricle Wall Motion: Stress IR - All segments are normal. Rest IR - Gated Stress IR - Reversibility - Stress IR Stress IR Gated Stress IR LVEF: 62 % ED Volume: 93 ml ES Volume: 35 ml TID: 1.02 Perfusion Findings Stress IR - Summed Score=0 All segments demonstrate normal perfusion. Rest IR - Summed Score=0 All segments demonstrate normal perfusion. Stress IR Rest IR Summed Score=0 Summed Score=0 LEFT VENTRICLE The left ventricle is normal in size. Left ventricular systolic function is normal. Right Ventricle The right ventricle is normal in size. Right ventricle systolic function is normal. Stress Test Findings: There is no scintigraphic evidence for inducible ischemia. There is no evidence of scarring. * * * Final * * * ---- Stress ECG Report: [facility] Date of service: 06/03/2024 8:42:00 AM Ordering physician: KEVIN MOLINA personnel placement specialist: Brandie Gann RN Surgical Instrument Maker: Joseph Nicole CEP Interpreting physician: Kevin Molina MD Patient name: KYLE MCDANIEL Age: 63 years Gender: M Height: 185.42 cm BSA: 2.33 m? Weight: 105.24 kg BMI: 30.6 kg/m? Indication: Encounter for screening for cardiovascular disorders and Encounter for pre-procedural cardiovascular examination for non-cardiac surgery Stress ECG Conclusion: Conclusion: Normal Comments: No EKG evidence of ischemia. Stress ECG Summary: The patient's resting heart rate was 85 bpm and blood pressure was 117/77 mmHg. The test was terminated due to end of protocol. Other symptoms during the test included SOB. The maximum heart rate was 101 bpm, which is 65% of the predicted heart rate for age. Peak blood pressure was 117/70 mmHg. The double product achieved was [address]. Previous cardiovascular interventions: Cardiomyopath, Stage B Heart Failure. Last EF 45% Medications: Last Used SEE EPIC Resting ECG: Normal Sinus Rhythm Symptoms at rest: No symptoms Pharamcologic Protocol: Regadenoson Stress Exercise Table: +-----+---+---+---+ Stage HR SYS JAIRO +-----+---+---+---+ 1 80 137 77 +-----+---+---+---+ 2 94 114 64 +-----+---+---+---+ 3 101 120 64 (more content not included)... Normal [facility] NM Heart Perfusion W stress and W radionuclide Iraida 06-03-2024 * * *Final Report* * * DATE OF EXAM: Jun 03 2024 10:50AM [employer] [facility] [employer] 0006 - NM CARDIAC PERF STRESS/PHARM / PROCEDURE REASON: Systolic dysfunction without heart failure * * * * Physician Interpretation * * * * Stress Finance Broker Report: [facility] Date of service: 06/03/2024 8:42:00 AM Supervising physician: Kevin Molina MD PATIENT: Name: KYLE MCDANIEL Age: 63 years Gender: M The supervising physician was in the department and immediately available. * * * Final * * * ---- PATIENT: Name: KYLE MCDANIEL Age: 63 years Gender: M CONCLUSIONS: 1. SPECT Perfusion Study: Normal. 2. There is no scintigraphic evidence for inducible ischemia. 3. No evidence of scarred myocardium. 4. Left ventricle is normal in size. The left ventricle systolic function is normal. 5. Right ventricle is normal in size. The right ventricle systolic function is normal. 6. This is a low risk scan. Gated Stress IR LVEF % 62 Prior Study Comparison No prior nuclear cardiology exam available for comparison. Nuclear Med Report:1-Day Gated SPECT Myocardial Perfusion with Regadenoson Stress: Myocardial perfusion imaging was performed at rest 30 minutes following the IV injection of the radiotracer. The patient received 0.4 mg of regadenoson, via rapid IV push, immediately followed by radiotracer IV. Gated post stress tomographic imaging was performed 30 to 60 minutes later. See administered radiotracer and doses below. [facility] Date of service: 06/03/2024 8:42:00 AM Ordering Physician: KEVIN MOLINA. Requesting Physician: Indication: Assessment for suspected CAD and Preop evaluation for noncardiac surgery with low/intermediate clinical risk Interpreting physician: Kevin Molina MD Previous Cardiovascular Interventions: Cardiomyopath, Stage B Heart Failure. Last EF 45% Height: 185.42 cm BSA: 2.33 m Weight: 105.24 kg BMI: 30.6 kg/m Imaging Protocol Limitation Reason G.I. uptake and Diaphragmatic attenuation. Exam Type: Rest Stress Radiopharm: Tc-99m Tetrofosmin Tc-99m Tetrofosmin Dosage(mCi): 13.3 52.1 Stress Agent: Regadenoson 0.4mg Supply provided from [facility] Resting Blood Press: 117/77 mmHg Image Quality The overall study imaging quality was deemed to be fair. The following technical issues were noted: G.I. uptake and Diaphragmatic attenuation. FINDINGS: Left Ventricle Wall Motion: Stress IR - All segments are normal. Rest IR - Gated Stress IR - Reversibility - Stress IR Stress IR Gated Stress IR LVEF: 62 % ED Volume: 93 ml ES Volume: 35 ml TID: 1.02 Perfusion Findings Stress IR - Summed Score=0 All segments demonstrate normal perfusion. Rest IR - Summed Score=0 All segments demonstrate normal perfusion. Stress IR Rest IR Summed Score=0 Summed Score=0 LEFT VENTRICLE The left ventricle is normal in size. Left ventricular systolic function is normal. Right Ventricle The right ventricle is normal in size. Right ventricle systolic function is normal. Stress Test Findings: There is no scintigraphic evidence for inducible ischemia. There is no evidence of scarring. * * * Final * * * ---- Stress ECG Report: [facility] Date of service: 06/03/2024 8:42:00 AM Ordering physician: KEVIN MOLINA personnel placement specialist: Brandie Gann RN Surgical Instrument Maker: Joseph Nicole CEP Interpreting physician: Kevin Molina MD Patient name: KYLE MCDANIEL Age: 63 years Gender: M Height: 185.42 cm BSA: 2.33 m Weight: 105.24 kg BMI: 30.6 kg/m Indication: Encounter for screening for cardiovascular disorders and Encounter for pre-procedural cardiovascular examination for non-cardiac surgery Stress ECG Conclusion: Conclusion: Normal Comments: No EKG evidence of ischemia. Stress ECG Summary: The patient's resting heart rate was 85 bpm and blood pressure was 117/77 mmHg. The test was terminated due to end of protocol. Other symptoms during the test included SOB. The maximum heart rate was 101 bpm, which is 65% of the predicted heart rate for age. Peak blood pressure was 117/70 mmHg. The double product achieved was 689[address]. Previous cardiovascular interventions: Cardiomyopath, St (more content not included)... [facility] * * *Final Report* * * DATE OF EXAM: Jun 03 2024 10:50AM [facility] 0006 - [place] CARDIAC PERF STRESS/PHARM / PROCEDURE REASON: Systolic dysfunction without heart failure * * * * Physician Interpretation * * * * Stress Finance Broker Report: [facility] Date of service: 06/03/2024 8:42:00 AM Supervising physician: Kevin Molina MD PATIENT: Name: KYLE MCDANIEL Age: 63 years Gender: M The supervising physician was in the department and immediately available. * * * Final * * * ---- PATIENT: Name: KYLE MCDANIEL Age: 63 years Gender: M CONCLUSIONS: 1. SPECT Perfusion Study: Normal. 2. There is no scintigraphic evidence for inducible ischemia. 3. No evidence of scarred myocardium. 4. Left ventricle is normal in size. The left ventricle systolic function is normal. 5. Right ventricle is normal in size. The right ventricle systolic function is normal. 6. This is a low risk scan. Gated Stress IR LVEF % 62 Prior Study Comparison No prior nuclear cardiology exam available for comparison. Nuclear Med Report:1-Day Gated SPECT Myocardial Perfusion with Regadenoson Stress: Myocardial perfusion imaging was performed at rest 30 minutes following the IV injection of the radiotracer. The patient received 0.4 mg of regadenoson, via rapid IV push, immediately followed by radiotracer IV. Gated post stress tomographic imaging was performed 30 to 60 minutes later. See administered radiotracer and doses below. [facility] Date of service: 06/03/2024 8:42:00 AM Ordering Physician: KEVIN MOLINA. Requesting Physician: Indication: Assessment for suspected CAD and Preop evaluation for noncardiac surgery with low/intermediate clinical risk Interpreting physician: Kevin Molina MD Previous Cardiovascular Interventions: Cardiomyopath, Stage B Heart Failure. Last EF 45% Height: 185.42 cm BSA: 2.33 m Weight: 105.24 kg BMI: 30.6 kg/m Imaging Protocol Limitation Reason G.I. uptake and Diaphragmatic attenuation. Exam Type: Rest Stress Radiopharm: Tc-99m Tetrofosmin Tc-99m Tetrofosmin Dosage(mCi): 13.3 52.1 Stress Agent: Regadenoson 0.4mg Supply provided from [facility] Resting Blood Press: 117/77 mmHg Image Quality The overall study imaging quality was deemed to be fair. The following technical issues were noted: G.I. uptake and Diaphragmatic attenuation. FINDINGS: Left Ventricle Wall Motion: Stress IR - All segments are normal. Rest IR - Gated Stress IR - Reversibility - Stress IR Stress IR Gated Stress IR LVEF: 62 % ED Volume: 93 ml ES Volume: 35 ml TID: 1.02 Perfusion Findings Stress IR - Summed Score=0 All segments demonstrate normal perfusion. Rest IR - Summed Score=0 All segments demonstrate normal perfusion. Stress IR Rest IR Summed Score=0 Summed Score=0 LEFT VENTRICLE The left ventricle is normal in size. Left ventricular systolic function is normal. Right Ventricle The right ventricle is normal in size. Right ventricle systolic function is normal. Stress Test Findings: There is no scintigraphic evidence for inducible ischemia. There is no evidence of scarring. * * * Final * * * ---- Stress ECG Report: [facility] Date of service: 06/03/2024 8:42:00 AM Ordering physician: KEVIN MOLINA personnel placement specialist: Brandie Gann RN Surgical Instrument Maker: Joseph Nicole CEP Interpreting physician: Kevin Molina MD Patient name: KYLE MCDANIEL Age: 63 years Gender: M Height: 185.42 cm BSA: 2.33 m Weight: 105.24 kg BMI: 30.6 kg/m Indication: Encounter for screening for cardiovascular disorders and Encounter for pre-procedural cardiovascular examination for non-cardiac surgery Stress ECG Conclusion: Conclusion: Normal Comments: No EKG evidence of ischemia. Stress ECG Summary: The patient's resting heart rate was 85 bpm and blood pressure was 117/77 mmHg. The test was terminated due to end of protocol. Other symptoms during the test included SOB. The maximum heart rate was 101 bpm, which is 65% of the predicted heart rate for age. Peak blood pressure was 117/70 mmHg. The double product achieved was [id number]. Previous cardiovascular interventions: Cardiomyopath, Stage B Heart Failure. Last EF 45% Medications: Last Used SEE EPIC Resting ECG: Normal Sinus Rhythm Symptoms at rest: No symptoms Pharamcologic Protocol: Regadenoson Stress Exercise Tabl (more content not included)... [facility] Radiology Study observation (narrative) [facility] NM Heart Perfusion W stress and W radionuclide IVOrdered By: [facility] Provider on 06-03-2024 [facility] BRIEF OP NOTon 05-31-2024 BRIEF OP NOT HNO ID: [id number] Author: JULIOCESAR FRAZIER MD Service: Interventional Radiology Author Type: Physician Type: Brief Op Note Filed: 05/31/2024 08:43 Note Text: BRIEF OPERATIVE / PROCEDURE NOTE LOG ID: [id number] SURGERY/PROCEDURE DATE: 05/31/2024 INCISION/PROCEDURE START TIME: 8:20 AM INCISION CLOSE/PROCEDURE END TIME: 8:33 AM SURGEON(S)/PROCEDURALIS T(S) AND BODY MAN(S): Surgeons and Role: * Juliocesar Frazier MD - Primary No Additional Staff SURGERY/PROCEDURE(S): Celiac plexus block ANESTHESIA: Procedural Sedation FINDINGS: EtOH and bupivacaine instilled for celiac plexus block using CT guidance. ESTIMATED BLOOD LOSS: Scant SPECIMENS: None COMPLICATIONS: None CLOSURE TECHNIQUE: Primary PRE-OP/PRE-PROCEDURE DIAGNOSIS: Intractable pain due to chronic pancreatitis. POST-OP/POST-PROCEDURE DIAGNOSIS: Same as Preop Patient was accompanied to the next level of care by a licensed practitioner from the surgical team pending completion of this brief op note (or operative note) SIGNATURE: Juliocesar Frazier MD PATIENT NAME: Kyle Mcdaniel DATE: May 31, 2024 TIME: 8:42 AM Normal [facility] CT LOCALIZATION SOFT TISSUE BIon 05-31-2024 CT LOCALIZATION SOFT TISSUE BI * * *Final Report* * * DATE OF EXAM: May 31 2024 8:48AM [facility] 2039 - CT LOCALIZATION SOFT TISSUE BI / PROCEDURE REASON: pancreatitis * * * * Physician Interpretation * * * * CT-guided celiac plexus neurolysis, 05/31/2024. Reason for procedure: Patient with intractable pain secondary to chronic pancreatitis. Dose length product: 318.8 mGy centimeters. Complications: None. Procedure details and findings: Informed consent was obtained from the patient. The patient was evaluated for the safety and appropriateness of conscious sedation and the Moderate Sedation Record was completed. The patient was sedated with intravenous Fentanyl and Versed administered by the trained independent radiology nurse observer. The patient's vital signs were monitored during the procedure by the trained independent radiology nurse observer. Total intra-service work encounter time was approximately 0 hours and 25 minutes. After obtaining informed consent, the patient was brought to the CT procedure suite and positioned prone on the CT table. Localization scanning through the abdomen was performed. A suitable left paraspinal approach for celiac plexus neurolysis was identified and marked. The access site was prepped and draped in usual sterile fashion. Following administration of local anesthetic, intermittent CT guidance was used to advance a 22-gauge spinal needle into the anterior periaortic space slightly superior to the superior mesenteric artery origin. Neurolysis was performed by injecting 20 mL of absolute ethanol combined with 10 mL of 0.5% bupivacaine. Spinal needle was removed. Hemostasis was achieved using manual compression puncture site. A sterile dressing was applied. Patient tolerated the procedure well. IMPRESSION: CT-guided celiac plexus neurolysis. Collating Machine Operator: PSCB Transcribe Date/Time: May 31 2024 10:00A Dictated by : JULIOCESAR FRAZIER MD This examination was interpreted and the report reviewed and electronically signed by: JULIOCESAR FRAZIER MD on May 31 2024 10:07AM EST [id number] Normal [facility] HISTORY PHYSICALon HISTORY PHYSICAL HNO ID: [id number] Author: JULIOCESAR FRAZIER MD Service: Interventional Radiology Author Type: Physician Type: H&P Filed: 05/31/2024 08:08 Note Text: PROCEDURAL SEDATION HISTORY AND PHYSICAL EXAM SERVICE DATE: 05/31/2024 SERVICE TIME: 8:06 AM Subjective HPI: This is a 63 year old male who presents with intractable pain from chronic pancreatitis. PAST ANESTHESIA HISTORY: No history of adverse event PAST MEDICAL HISTORY Diagnosis Date Alcohol abuse CHF (congestive heart failure) (HCC) Diabetes mellitus (HCC) Hx of chronic pancreatitis Hyperlipemia TIA (transient ischemic attack) PAST SURGICAL HISTORY Procedure Laterality Date ABDOMINAL SURGERY HX Prior to Admission medications as of 05/31/24 0752 Medication Sig Last Dose Taking tamsulosin (FLOMAX) 0.4 mg Take 0.4 mg by mouth once daily. 05/31/2024 at 500 Yes metFORMIN ER (GLUMETZA) 1,000 mg 24 hr tablet Take 1,000 mg by mouth two times a day. 05/31/2024 at 500 Yes montelukast (SINGULAIR) 10 mg tablet Take 10 mg by mouth daily at bedtime. 05/31/2024 at 500 Yes LORATADINE ORAL Take 10 mg by mouth once daily. 05/31/2024 at 500 Yes LANTUS SOLOSTAR U-100 INSULIN 100 unit/mL (3 mL) Inject 25 Units subcutaneously two times a day. 05/31/2024 at 500 Yes metoprolol succinate ER (TOPROL XL) 25 mg 24 hr tablet Take 0.5 tablets by mouth once daily. lisinopril 2.5 mg tablet Take 1 tablet by mouth once daily. bsbxsb-xanyzlap-fglenwg (CREON 12) 12,000-38,000 -60,000 unit delayed release capsule Take 1 capsule by mouth with meals and at bedtime. ondansetron HCl (ZOFRAN ORAL) Take by mouth. thiamine (VITAMIN B1) 100 mg tablet Take 1 tablet by mouth once daily. insulin lispro (HUMALOG KWIKPEN INSULIN) 100 unit/mL Inject 5 Units subcutaneously three times a day with meals. aspirin, enteric coated (ASPIRIN, ENTERIC COATED) 81 mg EC tablet Take 81 mg by mouth once daily. traZODone (DESYREL) 100 mg tablet Take 100 mg by mouth daily at bedtime. thiamine (VITAMIN B1) 100 mg tablet Take 100 mg by mouth once daily. rosuvastatin (CRESTOR) 40 mg tablet Take 40 mg by mouth once daily. sertraline (ZOLOFT) 50 mg tablet Take 50 mg by mouth once daily. ALLERGIES Allergen Reactions Azithromycin Hives Erythromycin Hives Tylenol [Acetaminop* Hives Objective PHYSICAL EXAM: The remainder of the physical exam is noncontributory. AIRWAY: Airway Visualization of Uvula: Yes Mouth opening greater than 2 fingerbreadths: Yes Neck Full Range of Motion: Yes LUNGS: Lungs clear to auscultation CARDIAC: Regular rhythm,Regular rate Assessment/Plan ASA Class: ASA Class: Patient with severe systemic disease Active Problems: * No active hospital problems. * Resolved Problems: * No resolved hospital problems. * Medication and Non-Pharmacologic VTE Prophylaxis/Anticoagula nts VTE Prophylaxis: VTE prophylaxis appropriate Provisional Diagnosis/Treatment Plan: Pain from chronic pancreatitis, for celiac plexus block. Sedation Goal: Moderate SIGNATURE: Juliocesar Frazier MD PATIENT NAME: Kyle Mcdaniel DATE: May 31, 2024 TIME: 8:06 AM Normal [facility] PT panel Coag (PPP)on 2023 INR Coag (PPP) [Relative time] 1.0 {INR} Normal 0.9-1.3 [facility] Comment on above: Order Comment: Speci men Type: BLOOD SPECIMENOrdering Facility: [facility] Address: [address] [place] [address] Result Comment: Sophia min K Antagonist (VKA) Therapeutic Range: INR 2 to 3 (Target INR of 2.5) Note: For patients treated with VKA drugs, such as warfarin, the [place] [employer] 2012 Guideline recommends a therapeutic INR range of 2 to 3 (target INR of 2.5). This recommendation includes high-risk patients with antiphospholipid syndrome with previous arterial or venous thromboembolism, current-generation mechanical or bioprosthetic aortic heart valve replacement. Note: Patients with mechanical aortic valve replacement and additional risk factors for thromboembolic events (atrial fibrillation, previous thromboembolism, LV dysfunction, hypercoagulable conditions) or an older generation mechanical AVR (i.e., ball in-Cage) or any mechanical MVR should have a INR therapeutic range of 2.5 to 3.5 (target INR of 3). Mik CLINTON, et al. Chest 2012, 141:7S-47S Evangelina JARQUIN, et al. [facility] 2017, 70: 252-289 Performed By: #### 3 4528-0 ####[facility] LABORATORYCLIA [id number] [address] [place] PT Coag (PPP) [Time] 11.2 s Normal 9.7-13.0 [facility] Comment on above: Order Comment: Speci men Type: BLOOD SPECIMENOrdering Facility: [facility] Address: [address] [place] [address] Performed By: #### 3 4528-0 ####[facility] LABORATORYCLIA [id number] [address] [place] ED NOTEon 05-30-2024 ED NOTE HNO ID: [id number] Author: IZA LARA RN Service: ? Author Type: Registered Nurse Type: ED Notes Filed: 05/30/2024 12:08 Note Text: Attempted IV start x 2, unsuccessful. Patient states he is normally an Ultrasound IV if there are troubles. Pt aware of wait time for bed availability, patient states he is not going to wait for a bed, "I have a treatment tomorrow, I'll take care of it then." Pt appreciative, apologetic. Ambulated off unit to private vehicle [facility] ED NOTE HNO ID: [id number] Author: LISANDRO MCCALL, PATSY Service: ? Author Type: Registered Nurse Type: ED Notes Filed: 05/30/2024 11:41 Note Text: N/V and abdominal pain since Monday. States having a procedure tomorrow at [facility]. States hx of Pancreatitis. [facility] ED Triage Noteon 05-30-2024 ED Triage Note HNO ID: [id number] Author: CAYDEN KURTZ APRN.TETE Service: ? Author Type: Nurse Practitioner Type: ED Triage Notes Filed: 05/30/2024 11:45 Note Text: ED TRIAGE PROVIDER NOTE Patient Name: Kyle Mcdaniel Service Date: 05/30/24 BRIEF HPI: This is a 63 year old male who presents to the ED with: Abd pain for about 5 days -patient has chronic pancreatitis, was actually scheduled to have a procedure done at [facility] Tomorrow due to the chronic pancreatitis however the pain was severe today so he came in for evaluation and relief. Pain is in the epigastric area, he states he does feel typical of his pancreatitis pain. He has had associated nausea and vomiting. Patient states he does drink alcohol but not daily, last drink was this past Monday, states when he does drink it is whiskey/bourbon, unable to quantify a typical amount. BRIEF EXAM: NAD Awake and Alert Non labored breathing Patient with generalized abdominal tenderness, most severe to epigastric and bilateral upper quadrants. INITIAL WORKUP AND DECISION MAKING: Orders Placed This Encounter Comp Metabolic Panel Lipase Blood CBC + AUTO DIFF Urinalysis w Microscopic, reflex Culture Amylase SIGNATURE: Cayden Kurtz CNP, 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 AIRBRUSH [facility] 05-27-2024 ESHA Telephone (ENAGST) KYLE MCDANIEL ([id number]) 1960 M Date Time Provider Department 05/27/24 AMRIK BELLE During your visit today, we recorded the following information about you: Yayo Boydguy 05/27/2024 8:24 AM Signed I called pt and I did reschedule his appointment for 09-20-2023 but he did let me know that his sugar goes up its depends on what he eats. I told him I will let Dr. Belle know. Add him on the waiting list. Florence Boyd May 27, 2024 8:24 AM Amrik Belle MD 07/02/2024 7:51 AM Addendum Please schedule the patient for sooner appointment, first available, if no availability you may offer [address], [place] 07/02/2024 9:18 AM Signed I called Patient spoke with hi and I schedule sooner appointment on 07-19-2024 Fri. At 4:[address] Belle With concerns unstable Sugar. Florence Boyd July 02, 2024 9:18 AM Allergies As of Date: 05/27/2024 Noted Allergy Reaction AZITHROMYCIN 11/08/2022 4 - Hives ERYTHROMYCIN 01/04/2023 4 - Hives TYLENOL (ACETAMINOPHEN) 12/30/2023 4 - Hives Date Reviewed: 05/14/2024 Reviewed by: Candelaria Boyd, PATSY - Fully Assessed Prescriptions as of 07/02/2024 - metoprolol succinate ER (TOPROL XL) 25 mg 24 hr tablet Take 0.5 tablets by mouth once daily. - lisinopril 2.5 mg tablet Take 1 tablet by mouth once daily. - bjvzdf-yubpwpkc-szuqavf (CREON 12) 12,000-38,000 -60,000 unit delayed release capsule Take 1 capsule by mouth with meals and at bedtime. - ondansetron HCl (ZOFRAN ORAL) Take by mouth. - thiamine (VITAMIN B1) 100 mg tablet Take 1 tablet by mouth once daily. - insulin lispro (HUMALOG KWIKPEN INSULIN) 100 unit/mL Inject 5 Units subcutaneously three times a day with meals. - aspirin, enteric coated (ASPIRIN, ENTERIC COATED) 81 mg EC tablet Take 81 mg by mouth once daily. - traZODone (DESYREL) 100 mg tablet Take 100 mg by mouth daily at bedtime. - thiamine (VITAMIN B1) 100 mg tablet Take 100 mg by mouth once daily. - tamsulosin (FLOMAX) 0.4 mg Take 0.4 mg by mouth once daily. - rosuvastatin (CRESTOR) 40 mg tablet Take 40 mg by mouth once daily. - metFORMIN ER (GLUMETZA) 1,000 mg 24 hr tablet Take 1,000 mg by mouth two times a day. - sertraline (ZOLOFT) 50 mg tablet Take 50 mg by mouth once daily. - montelukast (SINGULAIR) 10 mg tablet Take 10 mg by mouth daily at bedtime. - LORATADINE ORAL Take 10 mg by mouth once daily. - LANTUS SOLOSTAR U-100 INSULIN 100 unit/mL (3 mL) Inject 25 Units subcutaneously two times a day. Problem List As Of Date 05/27/2024 Noted Resolved Chronic alcoholic pancreatitis (HCC) [K86.0] 07/12/2023 BPH (benign prostatic hyperplasia) [N40.0] 07/12/2023 HLD (hyperlipidemia) [E78.5] 07/12/2023 Diabetes mellitus type 2, controlled, without c*07/12/2023 Depression [F32.A] 07/12/2023 Seasonal allergies [J30.2] 07/12/2023 Pancreatic cirrhosis [K86.89] 07/13/2023 Nicotine use disorder, F17.2 [F17.200] 12/30/2023 Liver abscess [K75.0] 12/30/2023 Recurrent abdominal pain [R10.9] 12/31/2023 Chronic pancreatitis (HCC) [K86.1] 12/31/2023 Poor dentition [K08.9] 12/31/2023 Lesion of bladder [N32.9] 12/31/2023 Prostate cancer (HCC) [C61] 02/23/2024 Prostate nodule [N40.2] 02/23/2024 Encounter Status:Closed by FLORENCE BYOD on 05/27/24 [facility] 05-15-2024 ESHA Telephone (AINSLEYCANT) KYLE MCDANIEL ([id number]) 1960 M Date Time Provider Department 05/15/24 JEWEL FUENTES During your visit today, we recorded the following information about you: Stacia Camacho 05/15/2024 8:09 AM Signed Pt went to [place] for a blood draw for PSA/Appt 05/24. There is no order in the chart. Please place PSA in chart and notify patient. Shoshana Rodriguez MA 05/15/2024 8:18 AM Signed Did you want a PSA done on him? I do not see anything in your last office note. He will be seeing you for a 3 mouth f/u. Please advise. Thank you, MIKE Gutierres Natalie, MA 05/15/2024 8:47 AM Signed Informed pt. Shoshana Pérez MA Allergies As of Date: 05/15/2024 Noted Allergy Reaction AZITHROMYCIN 11/08/2022 4 - Hives ERYTHROMYCIN 01/04/2023 4 - Hives TYLENOL (ACETAMINOPHEN) 12/30/2023 4 - Hives Date Reviewed: 05/14/2024 Reviewed by: Candelaria Boyd, RN - Fully Assessed Reason for Visit: Orders [681] Prescriptions as of 05/15/2024 - ondansetron orally disintegrating (ZOFRAN ODT) 4 mg disintegrating tablet Take 1 tablet by mouth every 6 hours as needed for nausea/vomiting for up to 7 days. - oxyCODONE IR (ROXICODONE) 10 mg tab Take 1 tablet by mouth three times a day for 4 days. - metoprolol succinate ER (TOPROL XL) 25 mg 24 hr tablet Take 0.5 tablets by mouth once daily. - lisinopril 2.5 mg tablet Take 1 tablet by mouth once daily. - llujec-lhpwgvyi-wietnsk (CREON 12) 12,000-38,000 -60,000 unit delayed release capsule Take 1 capsule by mouth with meals and at bedtime. - ondansetron HCl (ZOFRAN ORAL) Take by mouth. - thiamine (VITAMIN B1) 100 mg tablet Take 1 tablet by mouth once daily. - insulin lispro (HUMALOG KWIKPEN INSULIN) 100 unit/mL Inject 5 Units subcutaneously three times a day with meals. - aspirin, enteric coated (ASPIRIN, ENTERIC COATED) 81 mg EC tablet Take 81 mg by mouth once daily. - traZODone (DESYREL) 100 mg tablet Take 100 mg by mouth daily at bedtime. - thiamine (VITAMIN B1) 100 mg tablet Take 100 mg by mouth once daily. - tamsulosin (FLOMAX) 0.4 mg Take 0.4 mg by mouth once daily. - rosuvastatin (CRESTOR) 40 mg tablet Take 40 mg by mouth once daily. - metFORMIN ER (GLUMETZA) 1,000 mg 24 hr tablet Take 1,000 mg by mouth two times a day. - sertraline (ZOLOFT) 50 mg tablet Take 50 mg by mouth once daily. - montelukast (SINGULAIR) 10 mg tablet Take 10 mg by mouth daily at bedtime. - LORATADINE ORAL Take 10 mg by mouth once daily. - LANTUS SOLOSTAR U-100 INSULIN 100 unit/mL (3 mL) Inject 25 Units subcutaneously two times a day. Problem List As Of Date 05/15/2024 Noted Resolved Chronic alcoholic pancreatitis (HCC) [K86.0] 07/12/2023 BPH (benign prostatic hyperplasia) [N40.0] 07/12/2023 HLD (hyperlipidemia) [E78.5] 07/12/2023 Diabetes mellitus type 2, controlled, without c*07/12/2023 Depression [F32.A] 07/12/2023 Seasonal allergies [J30.2] 07/12/2023 Pancreatic cirrhosis [K86.89] 07/13/2023 Nicotine use disorder, F17.2 [F17.200] 12/30/2023 Liver abscess [K75.0] 12/30/2023 Recurrent abdominal pain [R10.9] 12/31/2023 Chronic pancreatitis (HCC) [K86.1] 12/31/2023 Poor dentition [K08.9] 12/31/2023 Lesion of bladder [N32.9] 12/31/2023 Prostate cancer (HCC) [C61] 02/23/2024 Prostate nodule [N40.2] 02/23/2024 Encounter Status:Closed by HARLANSHOSHANA LANDA on 05/15/24 Normal [facility] PSA SerPl-mCncon 05-15-2024 Prostate specific Ag [Mass/Vol] 1.24 ng/mL Normal <2.60 [facility] Comment on above: Order Comment: Speci men Type: BLOOD SPECIMEN Ordering Facility: [facility] Address: [address] [place] [address] Result Comment: Tota l PSA test methodology used is the Electrochemiluminescence Immunoassay by [employer]. Total PSA values by differing methodologies cannot be interchanged. Performed By: #### 2 857-1 #### [facility] CLIA [id number] [address] [place] [address] [place] CBC W Auto Differential pane l (Bld)on 05-14-2024 Basophils (Bld) [#/Vol] 0.06 10*3/uL Normal <0.11 [facility] Comment on above: Order Comment: Speci men Type: BLOOD SPECIMENOrdering Facility: [facility] Address: [address] [place] [address] Performed By: #### 5 7021-8 ####[facility] [id number] [place] [address] [place] Basophils/100 WBC (Bld) 0.9 % Normal [facility] Comment on above: Order Comment: Speci men Type: BLOOD SPECIMENOrdering Facility: [facility] Address: [address] [place] [address] Performed By: #### 5 7021-8 ####[facility] [id number] [place] [address] [place] Differential cell count method Nom (Bld) Auto Normal [facility] Comment on above: Order Comment: Speci men Type: BLOOD SPECIMENOrdering Facility: [facility] Address: [address] [place] [address] Performed By: #### 5 7021-8 ####[facility] [id number] [place] [address] [place] Eosinophils (Bld) [#/Vol] 0.28 10*3/uL Normal <0.46 [facility] Comment on above: Order Comment: Speci men Type: BLOOD SPECIMENOrdering Facility: [facility] Address: [address] [place] [address] Performed By: #### 5 7021-8 ####[facility] [id number] [place] [address] [place] Eosinophils/100 WBC (Bld) 4.0 % Normal [facility] Comment on above: Order Comment: Speci men Type: BLOOD SPECIMENOrdering Facility: [facility] Address: [address] [place] [address] Performed By: #### 5 7021-8 ####[facility] [id number] [place] [address] [place] Erythrocyte distribution width (RBC) [Ratio] 12.3 % Normal 11.5-15.0 [facility] Comment on above: Order Comment: Speci men Type: BLOOD SPECIMENOrdering Facility: [facility] Address: [address] [place] [address] Performed By: #### 5 7021-8 ####[facility] [id number] [place] [address] [place] Hematocrit (Bld) [Volume fraction] 44.3 % Normal 39.0-51.0 [facility] Comment on above: Order Comment: Speci men Type: BLOOD SPECIMENOrdering Facility: [facility] Address: [address] [place] [address] Performed By: #### 5 7021-8 ####[facility] [id number] [place] [address] [place] Hemoglobin (Bld) [Mass/Vol] 15.6 g/dL Normal 13.0-17.0 [facility] Comment on above: Order Comment: Speci men Type: BLOOD SPECIMENOrdering Facility: [facility] Address: [address] [place] [address] Performed By: #### 5 7021-8 ####[facility] [id number] [place] [address] [place] Immature granulocytes (Bld) [#/Vol] 10*3/uL Normal <0.10 [facility] Comment on above: Order Comment: Speci men Type: BLOOD SPECIMENOrdering Facility: [facility] Address: [address] [place] [address] Performed By: #### 5 7021-8 ####[facility] [id number] [place] [address] [place] Immature granulocytes/100 WBC (Bld) 0.3 % Normal [facility] Comment on above: Order Comment: Speci men Type: BLOOD SPECIMENOrdering Facility: [facility] Address: [address] [place] [address] Performed By: #### 5 7021-8 ####[facility] [id number] [place] [address] [place] Lymphocytes (Bld) [#/Vol] 1.82 10*3/uL Normal 1.00-4.00 [facility] Comment on above: Order Comment: Speci men Type: BLOOD SPECIMENOrdering Facility: [facility] Address: [address] [place] [address] Performed By: #### 5 7021-8 ####[facility] [id number] [address] [place] Lymphocytes/100 WBC (Bld) 26.3 % Normal [facility] Comment on above: Order Comment: Speci men Type: BLOOD SPECIMENOrdering Facility: [facility] Address: [address] [place] [address] Performed By: #### 5 7021-8 ####[facility] [id number] [place] [address] [place] MCH (RBC) [Entitic mass] 31.5 pg Normal 26.0-34.0 [facility] Comment on above: Order Comment: Speci men Type: BLOOD SPECIMENOrdering Facility: [facility] Address: [address] [place] [address] Performed By: #### 5 7021-8 ####[facility] [id number] [place] [address] [place] MCHC (RBC) [Mass/Vol] 35.2 g/dL Normal 30.5-36.0 [facility] Comment on above: Order Comment: Speci men Type: BLOOD SPECIMENOrdering Facility: [facility] Address: [address] [place] [address] Performed By: #### 5 7021-8 ####[facility] [id number] [address] [place] [facility] MCV (RBC) [Entitic vol] 89.5 fL Normal 80.0-100.0 [facility] Comment on above: Order Comment: Speci men Type: BLOOD SPECIMENOrdering Facility: [facility] Address: [address] [place] [address] Performed By: #### 5 7021-8 ####[facility] [id number] [address] [place] Monocytes (Bld) [#/Vol] 0.59 10*3/uL Normal <0.87 [facility] Comment on above: Order Comment: Speci men Type: BLOOD SPECIMENOrdering Facility: [facility] Address: [address] [place] [address] Performed By: #### 5 7021-8 ####[facility] [id number] [address] Monocytes/100 WBC (Bld) 8.5 % Normal [facility] Comment on above: Order Comment: Speci men Type: BLOOD SPECIMENOrdering Facility: [facility] Address: [address] [place] [address] Performed By: #### 5 7021-8 ####[facility] [id number] [address] Neutrophils (Bld) [#/Vol] 4.15 10*3/uL Normal 1.45-7.50 [facility] Comment on above: Order Comment: Speci men Type: BLOOD SPECIMENOrdering Facility: [facility] Address: [address] [place] [address] Performed By: #### 5 7021-8 ####[facility] [id number] [place] [address] [place] [facility] Neutrophils/100 WBC (Bld) 60.0 % Normal [facility] Comment on above: Order Comment: Speci men Type: BLOOD SPECIMENOrdering Facility: [facility] Address: [address] [place] [address] Performed By: #### 5 7021-8 ####[facility] [id number] [place] [address] [place] Nucleated RBC (Bld) [#/Vol] 10*3/uL Normal <0.01 [facility] Comment on above: Order Comment: Speci men Type: BLOOD SPECIMENOrdering Facility: [facility] Address: [address] [place] [address] Performed By: #### 5 7021-8 ####[facility] [id number] [place] [address] [place] Nucleated RBC/100 WBC (Bld) [Ratio] 0.0 /[address] [facility] Comment on above: Order Comment: Speci men Type: BLOOD SPECIMENOrdering Facility: [facility] Address: [address] [place] [address] Performed By: #### 5 7021-8 ####[facility] [id number] [place] [address] [place] Platelet mean volume (Bld) [Entitic vol] 10.9 fL Normal 9.0-12.7 [facility] Comment on above: Order Comment: Speci men Type: BLOOD SPECIMENOrdering Facility: [facility] Address: [address] [place] [address] Performed By: #### 5 7021-8 ####[facility] [id number] [place] [address] [place] Platelets (Bld) [#/Vol] 227 10*3/uL Normal 150-400 [facility] Comment on above: Order Comment: Speci men Type: BLOOD SPECIMENOrdering Facility: [facility] Address: [address] [place] [address] Performed By: #### 5 7021-8 ####[facility] [id number] [place] [address] [place] RBC (Bld) [#/Vol] 4.95 10*6/uL Normal 4.20-6.00 [facility] Comment on above: Order Comment: Speci men Type: BLOOD SPECIMENOrdering Facility: [facility] Address: [address] [place] [address] Performed By: #### 5 7021-8 ####[facility] [id number] [place] [address] [place] [facility] WBC (Bld) [#/Vol] 6.92 10*3/uL Normal 3.70-11.00 [facility] Comment on above: Order Comment: Speci men Type: BLOOD SPECIMENOrdering Facility: [facility] Address: [address] [place] [address] Performed By: #### 5 7021-8 ####[facility] [id number] [place] [address] [facility] Comprehensive metabolic 2000 panelon 05-14-2024 Albumin [Mass/Vol] 4.2 g/dL Normal 3.9-4.9 [facility] Comment on above: Order Comment: Speci men Type: BLOOD SPECIMENOrdering Facility: [facility] Address: [address] [place] [address] Performed By: #### 2 4323-8, 3040-3 ####[facility] [id number] [place] [address] [place] [facility] ALP [Catalytic activity/Vol] 92 U/L Normal 38-113 [facility] Comment on above: Order Comment: Speci men Type: BLOOD SPECIMENOrdering Facility: [facility] Address: [address] [place] [address] Performed By: #### 2 4323-8, 3040-3 ####[facility] [id number] [place] [address] [place] ALT [Catalytic activity/Vol] 28 U/L Normal 10-54 [facility] Comment on above: Order Comment: Speci men Type: BLOOD SPECIMENOrdering Facility: [facility] Address: [address] [place] [address] Performed By: #### 2 4323-8, 3040-3 ####[facility] [id number] [place] [address] [place] Anion gap [Moles/Vol] 15 mmol/L Normal 8-15 [facility] Comment on above: Order Comment: Speci men Type: BLOOD SPECIMENOrdering Facility: [facility] Address: [address] [place] [address] Performed By: #### 2 4323-8, 3040-3 ####[facility] [id number] [place] [address] [place] AST [Catalytic activity/Vol] 22 U/L Normal 14-40 [facility] Comment on above: Order Comment: Speci men Type: BLOOD SPECIMENOrdering Facility: [facility] Address: [address] [place] [address] Result Comment: Resu lts may be falsely increased due to interference by hemolysis. Suggest reorder as clinically indicated. Performed By: #### 2 4323-8, 3040-3 ####[facility] [id number] [place] [address] [place] Bilirubin [Mass/Vol] 0.4 mg/dL Normal 0.2-1.[address] [facility] [place] Comment on above: Order Comment: Speci men Type: BLOOD SPECIMENOrdering Facility: [facility] Address: [address] [place] [address] Performed By: #### 2 4323-8, 3040-3 ####[facility] [id number] [place] [address] [place] Calcium [Mass/Vol] 9.4 mg/dL Normal 8.5-10.2 [facility] Comment on above: Order Comment: Speci men Type: BLOOD SPECIMENOrdering Facility: [facility] Address: [address] [place] [address] Performed By: #### 2 4323-8, 3040-3 ####[facility] [id number] [place] [address] [place] Chloride [Moles/Vol] 101 mmol/L Normal 98-[address] [facility] Comment on above: Order Comment: Speci men Type: BLOOD SPECIMENOrdering Facility: [facility] Address: [address] [place] [address] Performed By: #### 2 4323-8, 3040-3 ####[facility] [id number] [place] [address] [place] CO2 [Moles/Vol] 23 mmol/L Normal 22-30 [facility] Comment on above: Order Comment: Speci men Type: BLOOD SPECIMENOrdering Facility: [facility] Address: [address] [place] [address] Performed By: #### 2 4323-8, 0-3 ####[facility] [id number] [place] [address] [place] Creatinine [Mass/Vol] 0.77 mg/dL Normal 0.73-1.22 [facility] Comment on above: Order Comment: Speci men Type: BLOOD SPECIMENOrdering Facility: [facility] Address: [address] [place] [address] Performed By: #### 2 4323-8, 3040-3 ####[facility] [id number] [address] Creatinine and Glomerular filtration rate.predicted panel (S/P/Bld) 99 mL/min/1.73m??? Normal >=60 [facility] Comment on above: Order Comment: Speci men Type: BLOOD SPECIMENOrdering Facility: [facility] Address: [address] [place] [address] Result Comment: Genny mated Glomerular Filtration Rate (eGFR) is calculated using the 2020 CKD-EPI creatinine equation. This equation utilizes serum creatinine, sex, and age as parameters. The creatinine assay has traceable calibration to isotope dilution-mass spectrometry. Refer to KDIGO guidelines for clinical interpretation. In patients with unstable renal function, e.g. those with acute kidney injury, the eGFR may not accurately reflect actual GFR. Performed By: #### 2 4323-8, 0-3 ####[facility] [id number] [place] [address] [place] Glucose [Mass/Vol] 218 mg/dL High 74-99 [facility] Comment on above: Order Comment: [place] Type: BLOOD SPECIMENOrdering Facility: [facility] Address: [address] [place] [address] Result Comment: The [place] [employer] (ADA) provides guidance for cutoff values for fasting glucose and random glucose. The ADA defines fasting as no caloric intake for at least 8 hours. Fasting plasma glucose results between 100 to 125 mg/dL indicate increased risk for diabetes (prediabetes). Fasting plasma glucose results greater than or equal to 126 mg/dL meet the criteria for diagnosis of diabetes. In the absence of unequivocal hyperglycemia, results should be confirmed by repeat testing. In a patient with classic symptoms of hyperglycemia or hyperglycemic crisis, random plasma glucose results greater than or equal to 200 mg/dL meet the criteria for diagnosis of diabetes. Reference: Standards of Medical Care in Diabetes 2016, [place] [employer]. Diabetes Care. 2016.39(Suppl 1). Performed By: #### 2 4323-8, 3039-3 ####[facility] [id number] [place] [address] [place] Potassium [Moles/Vol] 4.7 mmol/L Normal 3.7-5.1 [facility] Comment on above: Order Comment: [place] Type: BLOOD SPECIMENOrdering Facility: [facility] Address: [address] [place] [address] Performed By: #### 2 4323-8, 3039-3 ####[facility] [id number] [place] [address] [place] Protein [Mass/Vol] 7.2 g/dL Normal 6.3-8.0 [facility] Comment on above: Order Comment: Speci men Type: BLOOD SPECIMENOrdering Facility: [facility] Address: [address] [place] [address] Performed By: #### 2 4323-8, 3040-3 ####[facility] [id number] [place] [address] [place] [facility] Sodium [Moles/Vol] 139 mmol/L Normal 136-144 [facility] Comment on above: Order Comment: Speci men Type: BLOOD SPECIMENOrdering Facility: [facility] Address: [address] [place] [address] Performed By: #### 2 4323-8, 3040-3 ####[facility] [id number] [place] [address] [place] [facility] Urea nitrogen [Mass/Vol] 11 mg/dL Normal 9-24 [facility] Comment on above: Order Comment: Speci men Type: BLOOD SPECIMENOrdering Facility: [facility] Address: [address] [place], [place] [address] Performed By: #### 2 4323-8, 3040-3 ####[facility] [id number] [address] [place] ECG COMPLETEon 05-14-2024 ECG COMPLETE Ventricular Rate : 6 9 BPM Atrial Rate : 69 BPM P-R Interval : 170 ms QRS Duration : 86 ms Q-T Interval : 396 ms QTC Calculation(Bazett) : 424 ms Calculated P [place] : 51 degrees Calculated R [place] : 7 degrees Calculated T [place] : 39 degrees Normal sinus rhythm Possible Left atrial enlargement Borderline ECG When compared with ECG of 22-Apr-2024 19:28, No significant change was found Confirmed by NETTA KUMAR MD ([id number]) on 05/14/2024 9:39:11 PM NAME : KYLE MCDANIEL PID : [id number] : 1960 Gender : Male Race : ORD : [id number] Procedure Date : May 14 2024 13:52:41 Edit Date : May 14 2024 21:39:17 Diagnosis: Normal sinus rhythm Possible Left atrial enlargement Borderline ECG When compared with ECG of 22-Apr-2024 19:28, No significant change was found Confirmed by NETTA KUMAR MD ([id number]) on 05/14/2024 9:39:11 PM Test Reason : HCS Location : 3 : ED ED Overread By : NETTA KUMAR MD Edited By : NETTA KUMAR MD Referred By : , Acquired by : , [facility] ED NOTEon 05-14-2024 ED NOTE HNO ID: [id number] Author: CANDELARIA BOYD RN Service: ? Author Type: Registered Nurse Type: ED Notes Filed: 05/14/2024 11:17 Note Text: Patient c/o abd pain that is chronic, but has increased the past week. [facility] ED PROV NOTEon 05-14-2024 ED PROV NOTE HNO ID: [id number] Author: DONNA BAILEY MD Service: Emergency Medicine Author Type: Physician Type: ED Provider Notes Filed: 05/14/2024 17:19 Note Text: ED Provider Note Patient Name: Kyle Mcdaniel : 1960 SERVICE DATE: 05/14/24 History Patient presents with: Abdominal Pain This is a 63-year-old male with history of chronic pancreatitis, alcohol induced pancreatitis, chronic low back pain who presents to the emergency department for evaluation of abdominal pain. Patient states that over the weekend he started developing worsening abdominal pain. He states he always has baseline pain of 4 out of 10 but this is increased 8 out of 10. Is been associate with vomiting. He states that today he has not vomited but is nauseous. Patient states that he follows with Dr. Calloway up at [facility] Was supposed to have a Whipple procedure but this has been delayed due to cardiac clearance. He supposed to follow-up with cardiology in May. Patient states that he feels like his pancreatitis is flaring up. Reviewing records he was seen at [facility] Approximately 2 weeks ago had an unchanged CT at that time was given prescription for some pain medication. Patient previously followed with pain management, reviewing records he was seen by pain management and requested Percocet only and was told that they would not do this and the patient had left appointment. Patient requesting opiates today. Patient states he last drank alcohol approximately 10 days ago. PAST MEDICAL HISTORY Diagnosis Date Alcohol abuse CHF (congestive heart failure) (HCC) Diabetes mellitus (HCC) Hx of chronic pancreatitis Hyperlipemia TIA (transient ischemic attack) PAST SURGICAL HISTORY Procedure Laterality Date ABDOMINAL SURGERY HX No family history on file. Social History Tobacco Use Smoking status: Every Day Current packs/day: 1.00 Average packs/day: 1 pack/day for 20.0 years (20.0 ttl pk-yrs) Types: Cigarettes Smokeless tobacco: Former Types: Snuff Tobacco comments: As per pt "I smoke 12-15 smokes a day, but when I drink I know its way more." Vaping Use Vaping status: Never Used Substance and Sexual Activity Alcohol use: Yes Comment: 1 pint liquor per week, depends on weeks Drug use: Never Sexual activity: Yes Partners: Female ALLERGIES Allergen Reactions Azithromycin Hives Erythromycin Hives Tylenol [Acetaminop* Hives Review of Systems Constitutional: Negative for chills and fever. HENT: Negative for congestion. Eyes: Negative for visual disturbance. Respiratory: Negative for chest tightness and shortness of breath. Cardiovascular: Negative for chest pain. Gastrointestinal: Positive for abdominal pain, diarrhea and nausea. Negative for vomiting. Endocrine: Negative for polyuria. Genitourinary: Negative for difficulty urinating. Musculoskeletal: Negative for arthralgias, neck pain and neck stiffness. Skin: Negative for rash. Neurological: Negative for dizziness, light-headedness and numbness. Psychiatric/Behavioral: Negative for behavioral problems. Physical Exam Vitals [05/14/24 1117] BP Pulse Temp Temp src Resp SpO2 Weight Height 133/89 80 36.8 ?C (98.2 ?F) Oral 20 96 % 104 kg (229 lb 4.5 oz) 1.854 m (6' 1") Physical Exam Vitals and nursing note reviewed. Constitutional: General: He is not in acute distress. Appearance: He is well-developed. He is obese. He is not diaphoretic. HENT: Head: Normocephalic and atraumatic. Right Ear: External ear normal. Left Ear: External ear normal. Mouth/Throat: Pharynx: No oropharyngeal exudate. Eyes: General: Right eye: No discharge. Left eye: No discharge. Conjunctiva/sclera: Conjunctivae normal. Pupils: Pupils are equal, round, and reactive to light. Neck: Thyroid: No thyromegaly. Trachea: No tracheal deviation. Cardiovascular: Rate and Rhythm: Normal rate and regular rhythm. Heart sounds: Normal heart sounds. No murmur heard. No friction rub. No gallop. Pulmonary: Effort: Pulmonary effort is normal. No respiratory distress. Breath sounds: Normal breath sounds. No stridor. Abdominal: General: There is no distension. Palpations: Abdomen is soft. There is no mass. Tenderness: There is generalized abdominal tenderness. There is no guarding or rebound. Musculoskeletal: Cervical back: Normal range of motion and neck supple. Lymphadenopathy: Cervical: No cervical adenopathy. Skin: General: Skin is warm. Capillary Refill: Capillary refill takes less than 2 seconds. Findings: No rash. Neurological: Mental Status: He is alert and oriented to person, place, and time. Diagnostic Testing ED Labs Ordered and Reviewed URINALYSIS WITH MICROSCOPIC, REFLEX CULTURE - Abnormal; Notable for the following components: Result Value Ref Range Ketones, Urine Trace (*) Negative Protein, Urine Trace (*) Negative Bacteria Rare (*) None Seen /HPF (more content not included)... Normal [facility] Lipase SerPl-cCncon 05-14-20 24 Lipase [Catalytic activity/Vol] 13 U/L Low 16-61 [facility] Comment on above: Order Comment: Speci men Type: BLOOD SPECIMENOrdering Facility: [facility] Address: [address] [place] [address] Performed By: #### 2 4323-8, 3040-3 ####[facility] [id number] [place] [address] [place] Urinalysis complete panel (U )on 05-14-2024 Bacteria LM.HPF (Urine sed) [#/Area] Rare Abnormal None Seen [facility] Comment on above: Order Comment: Speci men Type: URINE SPECIMENOrdering Facility: [facility] Address: [address] [place] [address] Performed By: #### 2 4356-8 ####[facility] [id number] [place] [address] [place] Bilirubin Ql (U) Negative Normal Negative [facility] Comment on above: Order Comment: Speci men Type: URINE SPECIMENOrdering Facility: [facility] Address: [address] [place] [address] Performed By: #### 2 4356-8 ####[facility] [id number] [place] [address] [place] Clarity (Unsp spec) Clear Normal Clear [facility] Comment on above: Order Comment: Speci men Type: URINE SPECIMENOrdering Facility: [facility] Address: [address] [place] [address] Performed By: #### 2 4356-8 ####[facility] [id number] [place] [address] [place] Color (U) Yellow Normal Yellow [facility] Comment on above: Order Comment: Speci men Type: URINE SPECIMENOrdering Facility: [facility] Address: [address] [place] [address] Performed By: #### 2 4356-8 ####[facility] [id number] [place] [address] [place] Epithelial cells LM.HPF (Urine sed) [#/Area] Few Normal [facility] Comment on above: Order Comment: Speci men Type: URINE SPECIMENOrdering Facility: [facility] Address: [address] [place] [address] Performed By: #### 2 4356-8 ####[facility] [id number] [place] [address] [place] Glucose Test strip (U) [Mass/Vol] Negative Normal Negative [facility] Comment on above: Order Comment: Speci men Type: URINE SPECIMENOrdering Facility: [facility] Address: [address] [place] [address] Performed By: #### 2 4356-8 ####[facility] [id number] [place] [address] [place] Hemoglobin Ql (U) Negative Normal Negative [facility] Comment on above: Order Comment: Speci men Type: URINE SPECIMENOrdering Facility: [facility] Address: [address] [place] [address] Performed By: #### 2 4356-8 ####[facility] [id number] [place] [address] [place] [facility] Ketones Ql (U) Trace Abnormal Negative [facility] Comment on above: Order Comment: Speci men Type: URINE SPECIMENOrdering Facility: [facility] Address: [address] [place] [address] Performed By: #### 2 4356-8 ####[facility] [id number] [place] [address] [place] Leukocyte esterase Test strip Ql (U) Negative Normal Negative [facility] Comment on above: Order Comment: Speci men Type: URINE SPECIMENOrdering Facility: [facility] Address: [address] [place] [address] Performed By: #### 2 4356-8 ####[facility] [id number] [place] [address] [place] [facility] Nitrite Ql (U) Negative Normal Negative [facility] Comment on above: Order Comment: Speci men Type: URINE SPECIMENOrdering Facility: [facility] Address: [address] [place] [address] Performed By: #### 2 4356-8 ####[facility] [id number] [place] [address] [place] pH (U) 6.5 [pH] Normal 5.0-8.0 [facility] Comment on above: Order Comment: Speci men Type: URINE SPECIMENOrdering Facility: [facility] Address: [address] [place] [address] Performed By: #### 2 4356-8 ####[facility] [id number] [address] [place] Protein (U) [Mass/Vol] Trace Abnormal Negative [facility] Comment on above: Order Comment: Speci men Type: URINE SPECIMENOrdering Facility: [facility] Address: [address] [place] [address] Performed By: #### 2 4356-8 ####[facility]IA [id number] [place] [address] [place] RBC LM.HPF (Urine sed) [#/Area] 0-3 /HPF Normal 0-3 /HPF [facility] Comment on above: Order Comment: Speci men Type: URINE SPECIMENOrdering Facility: [facility] Address: [address] [place] [address] Performed By: #### 2 4356-8 ####[facility] [id number] [address] [place] [facility] Specific gravity (U) [Rel density] 1.025 Normal 1.005-1.030 [facility] Comment on above: Order Comment: Speci men Type: URINE SPECIMENOrdering Facility: [facility] Address: [address] [place] [address] Performed By: #### 2 4356-8 ####[facility] [id number] [address] Urobilinogen Ql (U) 1.0 EU/dL Normal 0.2-1.0 EU/dL [facility] Comment on above: Order Comment: Speci men Type: URINE SPECIMENOrdering Facility: [facility] Address: [address] [place] [address] Performed By: #### 2 4356-8 ####[facility] [id number] [address] [place] WBC LM.HPF (Urine sed) [#/Area] 0-5 /HPF Normal 0-5 /HPF [facility] Comment on above: Order Comment: Speci men Type: URINE SPECIMENOrdering Facility: [facility] Address: [address] [place] [address] Performed By: #### 2 4356-8 ####[facility] [id number] [address] OF [facility] CNOVon 05-10-2024 CNOV Office Visit (SPANPM ) KYLE MCDANIEL ([id number]) 1960 M Date Time Provider Department 05/10/24 8:00 AM SEGUN ESCALONA SPAN During your visit today, we recorded the following information about you: Segun Escalona APRN.[employer] 05/10/2024 1:08 PM Signed Patient stated that he was only interested in continuous opiate therapy. Patient was informed that we would not start continuous opiate therapy. Patient decided to not be seen. Allergies As of Date: 05/10/2024 Noted Allergy Reaction AZITHROMYCIN 11/08/2022 4 - Hives ERYTHROMYCIN 01/04/2023 4 - Hives TYLENOL (ACETAMINOPHEN) 12/30/2023 4 - Hives Date Reviewed: 05/08/2024 Reviewed by: Raulito Nix RN - Fully Assessed Reason for Visit: New Patient Evaluation [154] Appointment Cancelled [1023] Primary Visit Diagnosis:Chronic bilateral low back pain without sciatica [M54.50, G89.29] Other Visit Diagnosis:APPOINTMENT CANCELLED Prescriptions as of 05/10/2024 - oxyCODONE IR (ROXICODONE) 10 mg tab Take 1 tablet by mouth every 8 hours as needed for pain for up to 2 days. - metoprolol succinate ER (TOPROL XL) 25 mg 24 hr tablet Take 0.5 tablets by mouth once daily. - lisinopril 2.5 mg tablet Take 1 tablet by mouth once daily. - gpjdmd-hpqalpdi-xmpopmx (CREON 12) 12,000-38,000 -60,000 unit delayed release capsule Take 1 capsule by mouth with meals and at bedtime. - ondansetron HCl (ZOFRAN ORAL) Take by mouth. - thiamine (VITAMIN B1) 100 mg tablet Take 1 tablet by mouth once daily. - insulin lispro (HUMALOG KWIKPEN INSULIN) 100 unit/mL Inject 5 Units subcutaneously three times a day with meals. - aspirin, enteric coated (ASPIRIN, ENTERIC COATED) 81 mg EC tablet Take 81 mg by mouth once daily. - traZODone (DESYREL) 100 mg tablet Take 100 mg by mouth daily at bedtime. - thiamine (VITAMIN B1) 100 mg tablet Take 100 mg by mouth once daily. - tamsulosin (FLOMAX) 0.4 mg Take 0.4 mg by mouth once daily. - rosuvastatin (CRESTOR) 40 mg tablet Take 40 mg by mouth once daily. - metFORMIN ER (GLUMETZA) 1,000 mg 24 hr tablet Take 1,000 mg by mouth two times a day. - sertraline (ZOLOFT) 50 mg tablet Take 50 mg by mouth once daily. - montelukast (SINGULAIR) 10 mg tablet Take 10 mg by mouth daily at bedtime. - LORATADINE ORAL Take 10 mg by mouth once daily. - LANTUS SOLOSTAR U-100 INSULIN 100 unit/mL (3 mL) Inject 25 Units subcutaneously two times a day. Problem List As Of Date 05/10/2024 Noted Resolved Chronic alcoholic pancreatitis (HCC) [K86.0] 07/12/2023 BPH (benign prostatic hyperplasia) [N40.0] 07/12/2023 HLD (hyperlipidemia) [E78.5] 07/12/2023 Diabetes mellitus type 2, controlled, without c*07/12/2023 Depression [F32.A] 07/12/2023 Seasonal allergies [J30.2] 07/12/2023 Pancreatic cirrhosis [K86.89] 07/13/2023 Nicotine use disorder, F17.2 [F17.200] 12/30/2023 Liver abscess [K75.0] 12/30/2023 Recurrent abdominal pain [R10.9] 12/31/2023 Chronic pancreatitis (HCC) [K86.1] 12/31/2023 Poor dentition [K08.9] 12/31/2023 Lesion of bladder [N32.9] 12/31/2023 Prostate cancer (HCC) [C61] 02/23/2024 Prostate nodule [N40.2] 02/23/2024 Level of Service: UNLISTED EVALUATION AND MANAGEMENT SERVICE [22508] Encounter Status:Closed by SEGUN ESCALONA on 05/10/24 [facility] Jayne 05-10-2024 TETEN Telephone ([facility]) KYLE MCDANIEL ([id number]) 1960 M Date Time Provider Department 05/10/24 POLA YUDITHSONY SPAN During your visit today, we recorded the following information about you: Allergies As of Date: 05/10/2024 Noted Allergy Reaction AZITHROMYCIN 11/08/2022 4 - Hives ERYTHROMYCIN 01/04/2023 4 - Hives TYLENOL (ACETAMINOPHEN) 12/30/2023 4 - Hives Date Reviewed: 05/08/2024 Reviewed by: Raulito Nix RN - Fully Assessed Reason for Visit: Appointment [186] Prescriptions as of 05/13/2024 - metoprolol succinate ER (TOPROL XL) 25 mg 24 hr tablet Take 0.5 tablets by mouth once daily. - lisinopril 2.5 mg tablet Take 1 tablet by mouth once daily. - dzbadn-iwyouejd-znytgnv (CREON 12) 12,000-38,000 -60,000 unit delayed release capsule Take 1 capsule by mouth with meals and at bedtime. - ondansetron HCl (ZOFRAN ORAL) Take by mouth. - thiamine (VITAMIN B1) 100 mg tablet Take 1 tablet by mouth once daily. - insulin lispro (HUMALOG KWIKPEN INSULIN) 100 unit/mL Inject 5 Units subcutaneously three times a day with meals. - aspirin, enteric coated (ASPIRIN, ENTERIC COATED) 81 mg EC tablet Take 81 mg by mouth once daily. - traZODone (DESYREL) 100 mg tablet Take 100 mg by mouth daily at bedtime. - thiamine (VITAMIN B1) 100 mg tablet Take 100 mg by mouth once daily. - tamsulosin (FLOMAX) 0.4 mg Take 0.4 mg by mouth once daily. - rosuvastatin (CRESTOR) 40 mg tablet Take 40 mg by mouth once daily. - metFORMIN ER (GLUMETZA) 1,000 mg 24 hr tablet Take 1,000 mg by mouth two times a day. - sertraline (ZOLOFT) 50 mg tablet Take 50 mg by mouth once daily. - montelukast (SINGULAIR) 10 mg tablet Take 10 mg by mouth daily at bedtime. - LORATADINE ORAL Take 10 mg by mouth once daily. - LANTUS SOLOSTAR U-100 INSULIN 100 unit/mL (3 mL) Inject 25 Units subcutaneously two times a day. Problem List As Of Date 05/10/2024 Noted Resolved Chronic alcoholic pancreatitis (HCC) [K86.0] 07/12/2023 BPH (benign prostatic hyperplasia) [N40.0] 07/12/2023 HLD (hyperlipidemia) [E78.5] 07/12/2023 Diabetes mellitus type 2, controlled, without c*07/12/2023 Depression [F32.A] 07/12/2023 Seasonal allergies [J30.2] 07/12/2023 Pancreatic cirrhosis [K86.89] 07/13/2023 Nicotine use disorder, F17.2 [F17.200] 12/30/2023 Liver abscess [K75.0] 12/30/2023 Recurrent abdominal pain [R10.9] 12/31/2023 Chronic pancreatitis (HCC) [K86.1] 12/31/2023 Poor dentition [K08.9] 12/31/2023 Lesion of bladder [N32.9] 12/31/2023 Prostate cancer (HCC) [C61] 02/23/2024 Prostate nodule [N40.2] 02/23/2024 Encounter Status:Closed by HELGA PITTMAN on 05/13/24 [facility] CBC W Auto Differential pane l (Bld)on 05-08-2024 Basophils (Bld) [#/Vol] 0.06 10*3/uL Normal <0.11 [facility] Comment on above: Order Comment: Speci men Type: BLOOD SPECIMENOrdering Facility: [facility] Address: [address] [place] [address] Performed By: #### 5 7021-8 ####[facility] LABORATORYCLIA [id number] [place] [address] [place] Basophils/100 WBC (Bld) 0.8 % Normal [facility] Comment on above: Order Comment: Speci men Type: BLOOD SPECIMENOrdering Facility: [facility] Address: [address] [place] [address] Performed By: #### 5 7021-8 ####[facility]ITAL[facility] [id number] [address] Differential cell count method Nom (Bld) Auto Normal [facility] Comment on above: Order Comment: Speci men Type: BLOOD SPECIMENOrdering Facility: [facility] Address: [address] [place] [address] Performed By: #### 5 7021-8 ####[facility] LABORATORYCLIA [id number] [address] [place] Eosinophils (Bld) [#/Vol] 0.27 10*3/uL Normal <0.46 [facility] Comment on above: Order Comment: Speci men Type: BLOOD SPECIMENOrdering Facility: [facility] Address: [address] [place] [address] Performed By: #### 5 7021-8 ####[facility] LABORATORYCLIA [id number] [address] Eosinophils/100 WBC (Bld) 3.7 % Normal [facility] Comment on above: Order Comment: Speci men Type: BLOOD SPECIMENOrdering Facility: [facility] Address: [address] [place] [address] Performed By: #### 5 7021-8 ####[facility] LABORATORYCLIA [id number] [address] Erythrocyte distribution width (RBC) [Ratio] 13.0 % Normal 11.5-15.0 [facility] Comment on above: Order Comment: Speci men Type: BLOOD SPECIMENOrdering Facility: [facility] Address: [address] [place] [address] Performed By: #### 5 7021-8 ####[facility] LABORATORYCLIA [id number] [address] Hematocrit (Bld) [Volume fraction] 45.8 % Normal 39.0-51.0 [facility] Comment on above: Order Comment: Speci men Type: BLOOD SPECIMENOrdering Facility: [facility] Address: [address] [place] [address] Performed By: #### 5 7021-8 ####[facility]ORATORYCLIA [id number] [place] [address] [place] Hemoglobin (Bld) [Mass/Vol] 15.9 g/dL Normal 13.0-17.0 [facility] Comment on above: Order Comment: Speci men Type: BLOOD SPECIMENOrdering Facility: [facility] Address: [address] [place] [address] Performed By: #### 5 7021-8 ####[facility]ORATORYCLIA [id number] [place] [address] [place] Immature granulocytes (Bld) [#/Vol] 10*3/uL Normal <0.10 [facility] Comment on above: Order Comment: Speci men Type: BLOOD SPECIMENOrdering Facility: [facility] Address: [address] [place] [address] Performed By: #### 5 7021-8 ####[facility] LABORATORYCLIA [id number] [address] [place] Immature granulocytes/100 WBC (Bld) 0.3 % Normal [facility] Comment on above: Order Comment: Speci men Type: BLOOD SPECIMENOrdering Facility: [facility] Address: [address] [place] [address] Performed By: #### 5 7021-8 ####[facility] LABORATORYCLIA [id number] [address] [place] Lymphocytes (Bld) [#/Vol] 2.16 10*3/uL Normal 1.00-4.00 [facility] Comment on above: Order Comment: Speci men Type: BLOOD SPECIMENOrdering Facility: [facility] Address: [address] [place] [address] Performed By: #### 5 7021-8 ####[facility]ORATORYCLIA [id number] [address] [place] Lymphocytes/100 WBC (Bld) 29.4 % Normal [facility] Comment on above: Order Comment: Speci men Type: BLOOD SPECIMENOrdering Facility: [facility] Address: [address] [place] [address] Performed By: #### 5 7021-8 ####[facility] LABORATORYCLIA [id number] [address] MCH (RBC) [Entitic mass] 31.7 pg Normal 26.0-34.0 [facility] Comment on above: Order Comment: Speci men Type: BLOOD SPECIMENOrdering Facility: [facility] Address: [address] [place] [address] Performed By: #### 5 7021-8 ####[facility] LABORATORYCLIA [id number] [address] MCHC (RBC) [Mass/Vol] 34.7 g/dL Normal 30.5-36.0 [facility] Comment on above: Order Comment: Speci men Type: BLOOD SPECIMENOrdering Facility: [facility] Address: [address] [place] [address] Performed By: #### 5 7021-8 ####[facility] LABORATORYCLIA [id number] [address] [place] [facility] MCV (RBC) [Entitic vol] 91.4 fL Normal 80.0-100.0 [facility] Comment on above: Order Comment: Speci men Type: BLOOD SPECIMENOrdering Facility: [facility] Address: [address] [place] [address] Performed By: #### 5 7021-8 ####[facility] LABORATORYCLIA [id number] [address] Monocytes (Bld) [#/Vol] 0.48 10*3/uL Normal <0.87 [facility] Comment on above: Order Comment: Speci men Type: BLOOD SPECIMENOrdering Facility: [facility] Address: [address] [place] [address] Performed By: #### 5 7021-8 ####[facility] LABORATORYCLIA [id number] [address] Monocytes/100 WBC (Bld) 6.5 % Normal [facility] Comment on above: Order Comment: Speci men Type: BLOOD SPECIMENOrdering Facility: [facility] Address: [facility] [place] [address] Performed By: #### 5 7021-8 ####[facility] LABORATORYCLIA [id number] [place] [address] [place] Neutrophils (Bld) [#/Vol] 4.36 10*3/uL Normal 1.45-7.50 [facility] Comment on above: Order Comment: Speci men Type: BLOOD SPECIMENOrdering Facility: [facility] Address: [address] [place] [address] Performed By: #### 5 7021-8 ####[facility] LABORATORYCLIA [id number] [place] [address] [place] Neutrophils/100 WBC (Bld) 59.3 % Normal [facility] Comment on above: Order Comment: Speci men Type: BLOOD SPECIMENOrdering Facility: [facility] Address: [address] [place] [address] Performed By: #### 5 7021-8 ####[facility]ORATORYCLIA [id number] [place] [address] [place] Nucleated RBC (Bld) [#/Vol] 10*3/uL Normal <0.01 [facility] Comment on above: Order Comment: Speci men Type: BLOOD SPECIMENOrdering Facility: [facility] Address: [address] [place] [address] Performed By: #### 5 7021-8 ####[facility]ORATORYCLIA [id number] [place] [address] [place] Nucleated RBC/100 WBC (Bld) [Ratio] 0.0 /100 WBC Normal [facility] Comment on above: Order Comment: Speci men Type: BLOOD SPECIMENOrdering Facility: [facility] Address: [address] [place] [address] Performed By: #### 5 7021-8 ####[facility]ORATORYCLIA [id number] [address] STATES OF [facility] Platelet mean volume (Bld) [Entitic vol] 10.1 fL Normal 9.0-12.7 [facility] Comment on above: Order Comment: Speci men Type: BLOOD SPECIMENOrdering Facility: [facility] Address: [address] [place] [address] Performed By: #### 5 7021-8 ####[facility] LABORATORYCLIA [id number] [place] [address] [place] Platelets (Bld) [#/Vol] 220 10*3/uL Normal 150-400 [facility] Comment on above: Order Comment: Speci men Type: BLOOD SPECIMENOrdering Facility: [facility] Address: [address] [place] [address] Performed By: #### 5 7021-8 ####[facility]PITALCLIA [id number] [address] [place] [facility] RBC (Bld) [#/Vol] 5.01 10*6/uL Normal 4.20-6.00 [facility] Comment on above: Order Comment: Speci men Type: BLOOD SPECIMENOrdering Facility: [facility] Address: [address] [place] [address] Performed By: #### 5 7021-8 ####[facility] LABORATORYCLIA [id number] [address] [place] WBC (Bld) [#/Vol] 7.35 10*3/uL Normal 3.70-11.00 [facility] Comment on above: Order Comment: Speci men Type: BLOOD SPECIMENOrdering Facility: [facility] Address: [address] [place] [address] Performed By: #### 5 7021-8 ####[facility] LABORATORYCLIA [id number] [address] [place] ABD/PEL W IVCONon 11-13-[address] ABD/PEL W IVCON * * *Final Report* * * DATE OF EXAM: May 08 2024 8:30PM [facility] 0530 - CT ABD/PEL W IVCON / PROCEDURE REASON: Abdominal pain, acute, nonlocalized * * * * Physician Interpretation * * * * EXAMINATION: CT ABDOMEN AND PELVIS WITH IV CONTRAST CLINICAL HISTORY: Abdominal pain, history of chronic pancreatitis, with upper abdominal pain radiating into chest. Positive nausea, diarrhea, and sweating. TECHNIQUE: CT of the abdomen and pelvis was performed using standard technique, scanning from just above the dome of the diaphragm to the symphysis pubis. MQ: CTAP_3 Contrast: IV: 100 ml of Omnipaque 350 CT Radiation dose: Integrated Dose-length product (DLP) for this visit = 659 mGy*cm. CT Dose Reduction Employed: Automated exposure control(AEC) and iterative recon COMPARISON: CT abdomen and pelvis 04/22/2024 and 03/06/2024. MR pancreas 12/31/2023. RESULT: Liver: Decreased size/conspicuity of decreased attenuation in the right hepatic lobe measuring up to 2.0 cm (previously 2.8 cm). Biliary: Stable metallic common bile duct stent extending to the level of the duodenum. Stable pneumobilia and air within the gallbladder. Spleen: No mass. No splenomegaly. Pancreas: -Stable absence/atrophy of the pancreatic body/tail. -Stable focal masslike enlargement in the pancreatic head measuring up to 3.8 cm with mild edema/fat stranding in the pancreaticoduodenal groove. Stable calcification in the pancreatic head. Adrenals: No mass. Kidneys: No mass, calculus or hydronephrosis. GI tract: No dilation or wall thickening. Normal appendix. Lymph nodes: -Stable aortocaval adenopathy measuring 1.7 cm in short axis. -Stable inferior peripancreatic adenopathy measuring up to 1.0 cm in short axis. Mesentery/Peritoneum: Trace ascites/inflammation in the pancreaticoduodenal groove. Unchanged small volume fluid in the lesser sac, posterior to the stomach. Retroperitoneum: No mass. Vasculature: - Abdominal aorta and iliac arteries: Atherosclerotic calcifications without aneurysm. - Celiac and SMA: Patent without stenosis. - Portal venous system (SMV, splenic vein, portal vein and branches): Patent. - Hepatic veins: Incompletely opacified, likely due to early phase of enhancement. Pelvis: Urinary bladder has a normal appearance. Bones/Soft Tissues: Old left-sided rib fractures. Old left L2 transverse process fracture. Multilevel degenerative disc disease and lower lumbar facet arthropathy worse at L4-L5 and L5-S1 with neural foraminal narrowing.. Lower thorax: No consolidation. Localizer images: No additional findings. IMPRESSION: No interval abnormality compared to CT abdomen and pelvis 04/22/2024. 1. Stable edema/inflammation in the pancreaticoduodenal groove (may reflect sequela of acute on chronic pancreatitis) and small volume ascites in the lesser sac. No drainable fluid collection. 2. Stable masslike enlargement of the residual pancreatic head, previously evaluated on a prior pancreas MRI on 12/31/2023, followed up with ERCP/upper endoscopy. 3. Common bile duct stent with stable pneumobilia. 4. Decreased size of the right hepatic lobe lesion favored to reflect persistent resolving cholangitis/infection. Collating Machine Operator: ARMINDA Transcribe Date/Time: May 08 2024 10:45P Dictated by : SHANTEL HANDLEY MD This examination was interpreted and the report reviewed and electronically signed by: SHANTEL HANDLEY MD on May 08 2024 11:00PM EST [id number] Normal [facility] Comprehensive metabolic 2000 panelon 05-08-2024 Albumin [Mass/Vol] 4.1 g/dL Normal 3.9-4.9 [facility] Comment on above: Order Comment: Speci men Type: BLOOD SPECIMENOrdering Facility: [facility] Address: [address] [place], [place] [id number] Performed By: #### 3 040-3, 06925-0, ####[facility] LABORATORYCLIA [id number] [address] STATES OF [facility] ALP [Catalytic activity/Vol] 107 U/L Normal 38-113 [facility] Comment on above: Order Comment: Speci men Type: BLOOD SPECIMENOrdering Facility: [facility] Address: [address] [place] [address] Performed By: #### 3 040-3, 17838-3, ####[facility] LABORATORYCLIA [id number] [address] [place] ALT With P-5'-P [Catalytic activity/Vol] 15 U/L Normal 10-54 [facility] Comment on above: Order Comment: Speci men Type: BLOOD SPECIMENOrdering Facility: [facility] Address: [address] [place] [address] Performed By: #### 3 040-3, , ####[facility] LABORATORYCLIA [id number] [place] [address] [place] Anion gap [Moles/Vol] 14 mmol/L Normal 8-15 [facility] Comment on above: Order Comment: Speci men Type: BLOOD SPECIMENOrdering Facility: [facility] Address: [address] [place] [address] Performed By: #### 3 040-3, , ####[facility] LABORATORYCLIA [id number] [place] [address] [place] AST With P-5'-P [Catalytic activity/Vol] 15 U/L Normal 14-40 [facility] Comment on above: Order Comment: Speci men Type: BLOOD SPECIMENOrdering Facility: [facility] Address: [address] [place] [address] Performed By: #### 3 040-3, , ####[facility] LABORATORYCLIA [id number] [place] [address] [place] Bilirubin [Mass/Vol] 0.4 mg/dL Normal 0.2-1.3 [facility] Comment on above: Order Comment: Speci men Type: BLOOD SPECIMENOrdering Facility: [facility] Address: [address] [place] [address] Performed By: #### 3 040-3, , ####[facility] LABORATORYCLIA [id number] [place] [address] [place] Calcium [Mass/Vol] 10.1 mg/dL Normal 8.5-10.2 [facility] Comment on above: Order Comment: Speci men Type: BLOOD SPECIMENOrdering Facility: [facility] Address: [address] [place] [address] Performed By: #### 3 040-3, 61491-1, ####[facility] LABORATORYCLIA [id number] [place] [address] [place] Chloride [Moles/Vol] 101 mmol/L Normal 98-107 [facility] Comment on above: Order Comment: Speci men Type: BLOOD SPECIMENOrdering Facility: [facility] Address: [address] [place] [address] Performed By: #### 3 040-3, 34643-7, ####[facility] LABORATORYCLIA [id number] [place] [address] [place] CO2 [Moles/Vol] 24 mmol/L Normal 22-30 [facility] Comment on above: Order Comment: Speci men Type: BLOOD SPECIMENOrdering Facility: [facility] Address: [address] [place] [address] Performed By: #### 3 040-3, 95561-6, ####[facility] LABORATORYCLIA [id number] [place] [address] [place] Creatinine [Mass/Vol] 1.08 mg/dL Normal 0.73-1.22 [facility] Comment on above: Order Comment: Speci men Type: BLOOD SPECIMENOrdering Facility: [facility] Address: [address] [place] [address] Performed By: #### 3 040-3, 47989-8, ####[facility] LABORATORYCLIA [id number] [place] [address] [facility] Creatinine and Glomerular filtration rate.predicted panel (S/P/Bld) 76 mL/min/1.73m??? Normal >=60 [facility] Comment on above: Order Comment: Speci men Type: BLOOD SPECIMENOrdering Facility: [facility] Address: [address] [place] [address] Result Comment: Genny mated Glomerular Filtration Rate (eGFR) is calculated using the 2020 CKD-EPI creatinine equation. This equation utilizes serum creatinine, sex, and age as parameters. The creatinine assay has traceable calibration to isotope dilution-mass spectrometry. Refer to KDIGO guidelines for clinical interpretation. In patients with unstable renal function, e.g. those with acute kidney injury, the eGFR may not accurately reflect actual GFR. Performed By: #### 3 040-3, 87400-7, ####[facility] LABORATORYCLIA [id number] [place] [address] [place] Glucose [Mass/Vol] 199 mg/dL High 74-99 [facility] Comment on above: Order Comment: Speci men Type: BLOOD SPECIMENOrdering Facility: [facility] Address: [address] [place] [address] Result Comment: The [place] [employer] (ADA) provides guidance for cutoff values for fasting glucose and random glucose. The ADA defines fasting as no caloric intake for at least 8 hours. Fasting plasma glucose results between 100 to 125 mg/dL indicate increased risk for diabetes (prediabetes). Fasting plasma glucose results greater than or equal to 126 mg/dL meet the criteria for diagnosis of diabetes. In the absence of unequivocal hyperglycemia, results should be confirmed by repeat testing. In a patient with classic symptoms of hyperglycemia or hyperglycemic crisis, random plasma glucose results greater than or equal to 200 mg/dL meet the criteria for diagnosis of diabetes. Reference: Standards of Medical Care in Diabetes 2016, [place] [employer]. Diabetes Care. 2016.39(Suppl 1). Performed By: #### 3 040-3, , ####[facility] LABORATORYCLIA [id number] [place] [id number] [place] Potassium [Moles/Vol] 4.8 mmol/L Normal 3.7-5.1 [facility] Comment on above: Order Comment: Speci men Type: BLOOD SPECIMENOrdering Facility: [facility] Address: [address] [place] [address] Performed By: #### 3 040-3, 18209-4, ####[facility] LABORATORYCLIA [id number] [place] [address] [place] Protein [Mass/Vol] 7.1 g/dL Normal 6.3-8.0 [facility] Comment on above: Order Comment: Speci men Type: BLOOD SPECIMENOrdering Facility: [facility] Address: [address] [place] [address] Performed By: #### 3 040-3, , ####[facility] LABORATORYCLIA [id number] [place] [address] [place] Sodium [Moles/Vol] 139 mmol/L Normal 136-144 [facility] Comment on above: Order Comment: Speci men Type: BLOOD SPECIMENOrdering Facility: [facility] Address: [address] [place] [address] Performed By: #### 3 040-3, , ####[facility] LABORATORYCLIA [id number] [place] [id number] [place] Urea nitrogen [Mass/Vol] 20 mg/dL Normal 9-24 [facility] Comment on above: Order Comment: Speci men Type: BLOOD SPECIMENOrdering Facility: [facility] Address: [address] [place] [address] Performed By: #### 3 040-3, 48782-9, ####[facility] LABORATORYCLIA [id number] [place] [id number] [place] ECG COMPLETEon 05-08-2024 ECG COMPLETE Ventricular Rate : 8 5 BPM Atrial Rate : 85 BPM P-R Interval : 154 ms QRS Duration : 82 ms Q-T Interval : 358 ms QTC Calculation(Bazett) : 426 ms Calculated P [place] : 50 degrees Calculated R [place] : 40 degrees Calculated T [place] : 49 degrees NORMAL SINUS RHYTHM NORMAL ECG NO PREVIOUS ECGS AVAILABLE Confirmed by MACKENZIE IRWIN MD ([id number]) on 11/15/2024 11:20:08 PM NAME : KYLE MCDANIEL PID : [id number] : 1960 Gender : Male Race : ORD : [id number] Procedure Date : May 08 2024 14:24:16 Edit Date : Nov 15 2024 23:20:09 Diagnosis: NORMAL SINUS RHYTHM NORMAL ECG NO PREVIOUS ECGS AVAILABLE Confirmed by MACKENZIE IRWIN MD ([id number]) on 11/15/2024 11:20:08 PM Test Reason : Chest Pain Location : 4 : [facility] Overread By : MACKENZIE IRWIN MD Edited By : MACKENZIE IRWIN MD Referred By : , Acquired by : DENIS MCGOWAN [facility] ED NOTEon 05-08-2024 ED NOTE HNO ID: [id number] Author: RAULITO NIX, PATSY Service: Nursing Author Type: Registered Nurse Type: ED Notes Filed: 05/08/2024 19:52 Note Text: Pt placed on quality assurance monitor, cont. Pulse ox., and NIBP. Pt AANDO x3, at bedside. CT called. [facility] ED NOTE HNO ID: [id number] Author: JAI LOWE, PATSY Service: ? Author Type: Registered Nurse Type: ED Notes Filed: 05/08/2024 14:41 Note Text: XR notified [facility] ED PROV NOTEon 05-08-2024 ED PROV NOTE HNO ID: [id number] Author: GRACIE PICKERING MD Service: Emergency Medicine Author Type: Physician Type: ED Provider Notes Filed: 05/08/2024 23:38 Note Text: ED Provider Note Patient Name: Kyle Mcdaniel : 1960 SERVICE DATE: 05/08/24 History Patient presents with: Abdominal Pain: Pt has hx. Chronic pancreatitis; states upper mid. Abd. Pain began last ., states pain radiates up into chest. +nausea, diarrhea, sweating, -vomiting. Pt also c/o chest pressure that makes it hard to breathe." The patient is a 63 year old male with a significant past medical history of chronic/necrotizing pancreatitis, type 2 diabetes, hyperlipidemia, and congestive heart failure with an EF of 45%, who presents to the ED for evaluation of severe epigastric abdominal pain since . Pain is waxing and waning moderate. He reports a baseline discomfort which frequently increases to a 9 of 10. Associated symptoms include nausea, vomiting, poor oral intake, and diarrhea. He states this feels identical to prior episodes of pancreatitis. He states his pain is substantially worse than the when he had CT imaging at [facility]. He went to [facility] but due to prolonged wait left prior to evaluation. PAST MEDICAL HISTORY Diagnosis Date - Alcohol abuse - CHF (congestive heart failure) (HCC) - Diabetes mellitus (HCC) - Hx of chronic pancreatitis - Hyperlipemia - TIA (transient ischemic attack) PAST SURGICAL HISTORY Procedure Laterality Date - ABDOMINAL SURGERY HX No family history on file. Social History Tobacco Use - Smoking status: Every Day Current packs/day: 1.00 Average packs/day: 1 pack/day for 20.0 years (20.0 ttl pk-yrs) Types: Cigarettes - Smokeless tobacco: Former Types: Snuff - Tobacco comments: As per pt "I smoke 12-15 smokes a day, but when I drink I know its way more." Vaping Use - Vaping status: Never Used Substance and Sexual Activity - Alcohol use: Yes Comment: 1 pint liquor per week, depends on weeks - Drug use: Never - Sexual activity: Yes Partners: Female ALLERGIES Allergen Reactions - Azithromycin Hives - Erythromycin Hives - Tylenol [Acetaminop* Hives Review of Systems All other systems reviewed and are negative. Physical Exam Vitals [05/08/24 1416] BP Pulse Temp Temp src Resp SpO2 Weight Height 140/91 80 36.7 ?C (98.1 ?F) Oral 24 97 % 102.1 kg (225 lb) 1.854 m (6' 1") Physical Exam Vitals and nursing note reviewed. Constitutional: Appearance: He is well-developed. Comments: Uncomfortable but nontoxic HENT: Head: Normocephalic and atraumatic. Right Ear: External ear normal. Left Ear: External ear normal. Eyes: Conjunctiva/sclera: Conjunctivae normal. Neck: Trachea: No tracheal deviation. Cardiovascular: Rate and Rhythm: Normal rate and regular rhythm. Heart sounds: Normal heart sounds. No murmur heard. No friction rub. No gallop. Pulmonary: Effort: Pulmonary effort is normal. No respiratory distress. Breath sounds: Normal breath sounds. No wheezing or rales. Chest: Chest wall: No tenderness. Abdominal: General: There is no distension. Palpations: Abdomen is soft. Tenderness: There is abdominal tenderness in the right upper quadrant, epigastric area and left upper quadrant. There is no guarding. Musculoskeletal: General: No tenderness or deformity. Normal range of motion. Cervical back: Normal range of motion and neck supple. Skin: General: Skin is warm and dry. Coloration: Skin is not pale. Findings: No erythema or rash. Neurological: Mental Status: He is alert. Mental status is at baseline. Diagnostic Testing ED Labs Ordered and Reviewed COMPREHENSIVE METABOLIC PANEL - Abnormal; Notable for the following components: Result Value Ref Range Glucose 199 (*) 74 - 99 mg/dL All other components within normal limits MAGNESIUM - Abnormal; Notable for the following components: Magnesium 1.4 (*) 1.7 - 2.3 mg/dL All other components within normal limits LIPASE - Normal HIGH SENSITIVITY TROPONIN T (INITIAL) - Normal HIGH SENSITIVITY TROPONIN T (SECOND) - Normal COMPLETE BLOOD COUNT AND DIFFERENTIAL CT ABD/PEL W IVCON Final Result IMPRESSION: No interval abnormality compared to CT abdomen and pelvis 04/22/2024. 1. Stable edema/inflammation in the pancreaticoduodenal groove (may reflect sequela of acute on chronic pancreatitis) and small volume ascites in the lesser sac. No drainable fluid collection. 2. Stable masslike enlargement of the residual pancreatic head, previously evaluated on a prior pancreas MRI on 12/31/2023, followed up with ERCP/upper endoscopy. 3. Common bile duct stent with stable pneumobilia. 4. Decreased size of the right hepatic lobe lesion favored to reflect persistent resolving cholangitis/infection. Collating Machine Operator: ARMINDA Transcribe Date/Time: May 08 2024 10:45P Dictated by : SHANTEL HANDLEY MD This examin (more content not included)... Normal [facility] ED Triage Noteon 05-08-2024 ED Triage Note HNO ID: [id number] Author: CAYDEN HASKINS APRN.TETE Service: Emergency Medicine Author Type: Nurse Practitioner Type: ED Triage Notes Filed: 05/08/2024 14:21 Note Text: ED TRIAGE PROVIDER NOTE Patient Name: Kyle Mcdaniel Service Date: 05/08/24 BRIEF HPI: This is a 63 year old male who presents to the ED with: Nausea, abdominal pain, diarrhea, and chest pressure that is all consistent with his alcohol induced pancreatitis. His symptoms began approximately 1 week ago. Patient states that he went to [facility] yesterday, but the wait was too long, so he left before he was evaluated. BRIEF EXAM: Obese, chronically ill-appearing. Heart regular rate and rhythm. Abdomen soft, pain on palpation to the mid epigastric, right upper quadrant, and left upper quadrant INITIAL WORKUP AND DECISION MAKING: Orders Placed This Encounter XR CHEST 2V FRONTAL/LAT Complete Blood Count and Differential Comprehensive Metabolic Panel LIPASE BLD MAGNESIUM BLD High Sensitivity Troponin T with Reflex for ED Chest Pain EKG STAT SIGNATURE: Cayden Haskins APRN.PAINTER AIRBRUSH Normal [facility] HIGH SENSITIVITY TROPONIN T (INITIAL)on 05-08-2024 Troponin T.cardiac High sensitivity method [Mass/Vol] 7 ng/L Normal <12 [facility] Comment on above: Order Comment: Speci men Type: BLOOD SPECIMENOrdering Facility: [facility] Address: [address] [place] [address] Performed By: #### L [id number] ####[facility] LABORATORYCLIA [id number] [place] [address] [place] HIGH SENSITIVITY TROPONIN T (SECOND)on 05-08-2024 Troponin T.cardiac High sensitivity method [Mass/Vol] 7 ng/L Normal <12 [facility] Comment on above: Order Comment: Speci men Type: BLOOD SPECIMENOrdering Facility: [facility] Address: [address] [place] [address] Performed By: #### L [id number] ####[facility] LABORATORYCLIA [id number] [place] [address] [place] Lipase SerPl-cCncon 05-08-20 24 Lipase [Catalytic activity/Vol] 17 U/L Normal 16-61 [facility] Comment on above: Order Comment: Speci men Type: BLOOD SPECIMENOrdering Facility: [facility] Address: [address] [place] [address] Performed By: #### 3 040-3, 00904-2, 71219-2 ####[facility] LABORATORYCLIA [id number] [place] [address] [place] Magnesium SerPl-mCncon 05-08 Magnesium [Mass/Vol] 1.4 mg/dL Low 1.7-2.3 [facility] Comment on above: Order Comment: Speci men Type: BLOOD SPECIMENOrdering Facility: [facility] Address: [facility] [place] [address] Performed By: #### 3 040-3, 42510-5, 25975-1 ####[facility] LABORATORYCLIA [id number] [place] [address] [place] XR CHEST 2V FRONTAL/LATon XR CHEST 2V FRONTAL/LAT * * *Final Report* * * DATE OF EXAM: May 08 2024 3:03PM [id number] - XR CHEST 2V FRONTAL/LAT / PROCEDURE REASON: Chest Pain * * * * Physician Interpretation * * * * EXAMINATION: CHEST RADIOGRAPH (2 VIEW FRONTAL and LATERAL) CLINICAL HISTORY: Chest Pain MQ: [id number] EXAM DATE/TIME: 05/08/2024 3:03 PM COMPARISON: Chest radiograph 12/29/2023. RESULT: Lines, tubes, and devices: None. Lungs and pleura: No consolidation. No lung mass. No pleural effusion. No pneumothorax. Cardiomediastinal silhouette: Normal cardiomediastinal silhouette. Bones and soft tissues: Degenerative changes are present within the thoracic spine. IMPRESSION: No acute radiographic abnormality. Collating Machine Operator: PSCB Transcribe Date/Time: May 08 2024 3:14P Dictated by : TONY TURNER MD This examination was interpreted and the report reviewed and electronically signed by: TONY TURNER MD on May 08 2024 3:15PM EST [id number] [facility] ED NOTEon 05-07-2024 ED NOTE HNO ID: [id number] Author: SOUMYA PRECIADO RN Service: ? Author Type: Registered Nurse Type: ED Notes Filed: 05/07/2024 20:01 Note Text: PER REGISTRATION PT LWBS AT THIS TIME AND STATED HE DID NOT WANT TO WAIT. [facility] ESHA Telephone ([id number]) KYLE MCDANIEL ([id number]) 1960 M Date Time Provider Department 05/02/24 TRACEY BROWN3 During your visit today, we recorded the following information about you: Tracey Brown APRN.CNP 05/02/2024 2:18 PM Signed [facility] ART CONSERVATOR NOTE Discussed the purpose of the [facility]. Reviewed modifiable risk factors identified in the [facility]: Spoke to on the phone for updates: EXERCISE: He is wearing his pedometer to track his steps, he has been trying to walk down the road which is about a 0.25 of a mile. Encouraged to increase activity as much as possible prior to surgery. BREATHING: He has not been using his IS recently. Encouraged to use 30-40 breaths/day. He continues to smoke, but is now only smoking half of the 5 he smokes a day. NUTRITION: Some days his appetite is good, some days worse. He is still drinking "off and on." Encouraged complete cessation. Reviewed high protein food sources. Encouraged to include a protein source with each meal. Impact Advanced Recovery to start 5 days prior to procedure, BID. STRESS RELIEF: Mood has been ok, has not asked to have his Zoloft increased. Education given to patient for stress reduction/management. OR DATE: TBD Agreeable to a follow up call in: 4 weeks Tracey Brown APRN.TETE May 02, 2024 Allergies As of Date: 05/02/2024 Noted Allergy Reaction AZITHROMYCIN 11/08/2022 4 - Hives ERYTHROMYCIN 01/04/2023 4 - Hives TYLENOL (ACETAMINOPHEN) 12/30/2023 4 - Hives Date Reviewed: 04/22/2024 Reviewed by: Estephania Mcgrath CT - Fully Assessed Reason for Visit: Patient Update [1234] Prescriptions as of 05/02/2024 - metoprolol succinate ER (TOPROL XL) 25 mg 24 hr tablet Take 0.5 tablets by mouth once daily. - lisinopril 2.5 mg tablet Take 1 tablet by mouth once daily. - cyjfbh-rncquvip-siguned (CREON 12) 12,000-38,000 -60,000 unit delayed release capsule Take 1 capsule by mouth with meals and at bedtime. - ondansetron HCl (ZOFRAN ORAL) Take by mouth. - thiamine (VITAMIN B1) 100 mg tablet Take 1 tablet by mouth once daily. - insulin lispro (HUMALOG KWIKPEN INSULIN) 100 unit/mL Inject 5 Units subcutaneously three times a day with meals. - aspirin, enteric coated (ASPIRIN, ENTERIC COATED) 81 mg EC tablet Take 81 mg by mouth once daily. - traZODone (DESYREL) 100 mg tablet Take 100 mg by mouth daily at bedtime. - thiamine (VITAMIN B1) 100 mg tablet Take 100 mg by mouth once daily. - tamsulosin (FLOMAX) 0.4 mg Take 0.4 mg by mouth once daily. - rosuvastatin (CRESTOR) 40 mg tablet Take 40 mg by mouth once daily. - metFORMIN ER (GLUMETZA) 1,000 mg 24 hr tablet Take 1,000 mg by mouth two times a day. - sertraline (ZOLOFT) 50 mg tablet Take 50 mg by mouth once daily. - montelukast (SINGULAIR) 10 mg tablet Take 10 mg by mouth daily at bedtime. - LORATADINE ORAL Take 10 mg by mouth once daily. - LANTUS SOLOSTAR U-100 INSULIN 100 unit/mL (3 mL) Inject 25 Units subcutaneously two times a day. Problem List As Of Date 05/02/2024 Noted Resolved Chronic alcoholic pancreatitis (HCC) [K86.0] 07/12/2023 BPH (benign prostatic hyperplasia) [N40.0] 07/12/2023 HLD (hyperlipidemia) [E78.5] 07/12/2023 Diabetes mellitus type 2, controlled, without c*07/12/2023 Depression [F32.A] 07/12/2023 Seasonal allergies [J30.2] 07/12/2023 Pancreatic cirrhosis [K86.89] 07/13/2023 Nicotine use disorder, F17.2 [F17.200] 12/30/2023 Liver abscess [K75.0] 12/30/2023 Recurrent abdominal pain [R10.9] 12/31/2023 Chronic pancreatitis (HCC) [K86.1] 12/31/2023 Poor dentition [K08.9] 12/31/2023 Lesion of bladder [N32.9] 12/31/2023 Prostate cancer (HCC) [C61] 02/23/2024 Prostate nodule [N40.2] 02/23/2024 Encounter Status:Closed by TRACEY BROWN on 05/02/24 Normal [facility] Basic metabolic 2000 panelon 04-25-2024 Anion gap [Moles/Vol] 15 mmol/L Normal 8-15 [facility] Comment on above: Order Comment: Speci men Type: BLOOD SPECIMENOrdering Facility: [facility] Address: [address] [place] [address] Performed By: #### 2 4321-2, 06817-9, 2857-1 ####[facility] [id number] [place] [address] [place] Calcium [Mass/Vol] 9.5 mg/dL Normal 8.5-10.2 [facility] Comment on above: Order Comment: Speci men Type: BLOOD SPECIMENOrdering Facility: [facility] Address: [address] [place] [address] Performed By: #### 2 4321-2, 81557-4, 2857-1 ####[facility] [id number] [place] [address] [place] Chloride [Moles/Vol] 105 mmol/L Normal 98-[address] [facility] Comment on above: Order Comment: Speci men Type: BLOOD SPECIMENOrdering Facility: [facility] Address: [address] [place] [address] Performed By: #### 2 4321-2, 39087-4, 2857-1 ####[facility] [id number] [place] [address] [place] CO2 [Moles/Vol] 23 mmol/L Normal 22-30 [facility] Comment on above: Order Comment: Speci men Type: BLOOD SPECIMENOrdering Facility: [facility] Address: [address] [place] [address] Performed By: #### 2 4321-2, 52624-5, 2857-1 ####[facility] [id number] [place] [address] [place] Creatinine [Mass/Vol] 0.82 mg/dL Normal 0.73-1.22 [facility] Comment on above: Order Comment: Davis atkinson Type: BLOOD SPECIMENOrdering Facility: [facility] Address: [address] [place] [address] Performed By: #### 2 4321-2, 56534-4, 2857-1 ####[facility] [id number] [place] [address] [facility] Creatinine and Glomerular filtration rate.predicted panel (S/P/Bld) 97 mL/min/1.73m??? Normal >=60 [facility] Comment on above: Order Comment: Davis atkinson Type: BLOOD SPECIMENOrdering Facility: [facility] Address: [address] [place] [address] Result Comment: Genny mated Glomerular Filtration Rate (eGFR) is calculated using the 2020 CKD-EPI creatinine equation. This equation utilizes serum creatinine, sex, and age as parameters. The creatinine assay has traceable calibration to isotope dilution-mass spectrometry. Refer to KDIGO guidelines for clinical interpretation. In patients with unstable renal function, e.g. those with acute kidney injury, the eGFR may not accurately reflect actual GFR. Performed By: #### 2 4321-2, 70625-7, 2856-1 ####[facility] [id number] [place] [address] [place] Glucose [Mass/Vol] 212 mg/dL High 74-99 [facility] Comment on above: Order Comment: Davis atkinson Type: BLOOD SPECIMENOrdering Facility: [facility] Address: [address] [place] [address] Result Comment: The [place] Diabetes [employer] (ADA) provides guidance for cutoff values for fasting glucose and random glucose. The ADA defines fasting as no caloric intake for at least 8 hours. Fasting plasma glucose results between 100 to 125 mg/dL indicate increased risk for diabetes (prediabetes). Fasting plasma glucose results greater than or equal to 126 mg/dL meet the criteria for diagnosis of diabetes. In the absence of unequivocal hyperglycemia, results should be confirmed by repeat testing. In a patient with classic symptoms of hyperglycemia or hyperglycemic crisis, random plasma glucose results greater than or equal to 200 mg/dL meet the criteria for diagnosis of diabetes. Reference: Standards of Medical Care in Diabetes 2016, [place] [employer] Association. Diabetes Care. 2016.39(Suppl 1). Performed By: #### 2 4321-2, 21268-8, 2856- ####[facility] [id number] [place] [address] [place] Potassium [Moles/Vol] 4.1 mmol/L Normal 3.7-5.1 [facility] Comment on above: Order Comment: Davis atkinson Type: BLOOD SPECIMENOrdering Facility: [facility] Address: [address] [place] [address] Performed By: #### 2 4321-2, 78092-4, 2856- ####[facility] [id number] [address] STATES [facility] Sodium [Moles/Vol] 143 mmol/L Normal 136-144 [facility] Comment on above: Order Comment: Davis atkinson Type: BLOOD SPECIMENOrdering Facility: [facility] Address: [address] [place] [address] Performed By: #### 2 4321-2, 62062-5, 2856-06 ####[facility] [id number] [address] STATES [facility] Urea nitrogen [Mass/Vol] 19 mg/dL Normal 9-24 [facility] Comment on above: Order Comment: Davis atkinson Type: BLOOD SPECIMENOrdering Facility: [facility] Address: [address] [place] [address] Performed By: #### 2 4321-2, 19761-2, 2856- ####[facility] [id number] [address] OF [facility] Jayne 04-25-2024 ESHA Telephone (AGCARDPOB ) KYLE MCDANIEL ([id number]) 1960 M Date Time Provider Department 04/25/24 KEVIN MOLINA During your visit today, we recorded the following information about you: Laura Vidal RN 04/25/2024 2:02 PM Signed ----- Message from Kevin Molina MD sent at 04/25/2024 2:01 PM EDT ----- Can you please let Mr. Mcdaniel know his basic metabolic panel revealed normal electrolytes and kidney function. His glucose readings have been chronically elevated and he should follow up with his PCP in this regards. His lipids were otherwise very well controlled with LDL 45. Thanks, MD Misael Brito Linda S, RN 04/25/2024 2:13 PM Signed Called and spoke with Kyle Luis Jonas to relay Dr. Molina's comments and recommendation to follow up with PCP for chronic elevated glucose readings. Pt verbalized understanding and states he will see PCP. Laura Vidal RN Allergies As of Date: 04/25/2024 Noted Allergy Reaction AZITHROMYCIN 11/08/2022 4 - Hives ERYTHROMYCIN 01/04/2023 4 - Hives TYLENOL (ACETAMINOPHEN) 12/30/2023 4 - Hives Date Reviewed: 04/22/2024 Reviewed by: Estephania Mcgrath, [place] - Fully Assessed Prescriptions as of 04/25/2024 - oxyCODONE IR (ROXICODONE) 10 mg tab Take 1 tablet by mouth every 6 hours as needed for pain for up to 3 days. - ondansetron orally disintegrating (ZOFRAN ODT) 4 mg disintegrating tablet Take 1 tablet by mouth every 6 hours as needed for nausea/vomiting for up to 7 days. - metoprolol succinate ER (TOPROL XL) 25 mg 24 hr tablet Take 0.5 tablets by mouth once daily. - lisinopril 2.5 mg tablet Take 1 tablet by mouth once daily. - mzodub-clsdotlb-glbylvs (CREON 12) 12,000-38,000 -60,000 unit delayed release capsule Take 1 capsule by mouth with meals and at bedtime. - ondansetron HCl (ZOFRAN ORAL) Take by mouth. - thiamine (VITAMIN B1) 100 mg tablet Take 1 tablet by mouth once daily. - insulin lispro (HUMALOG KWIKPEN INSULIN) 100 unit/mL Inject 5 Units subcutaneously three times a day with meals. - aspirin, enteric coated (ASPIRIN, ENTERIC COATED) 81 mg EC tablet Take 81 mg by mouth once daily. - traZODone (DESYREL) 100 mg tablet Take 100 mg by mouth daily at bedtime. - thiamine (VITAMIN B1) 100 mg tablet Take 100 mg by mouth once daily. - tamsulosin (FLOMAX) 0.4 mg Take 0.4 mg by mouth once daily. - rosuvastatin (CRESTOR) 40 mg tablet Take 40 mg by mouth once daily. - metFORMIN ER (GLUMETZA) 1,000 mg 24 hr tablet Take 1,000 mg by mouth two times a day. - sertraline (ZOLOFT) 50 mg tablet Take 50 mg by mouth once daily. - montelukast (SINGULAIR) 10 mg tablet Take 10 mg by mouth daily at bedtime. - LORATADINE ORAL Take 10 mg by mouth once daily. - LANTUS SOLOSTAR U-100 INSULIN 100 unit/mL (3 mL) Inject 25 Units subcutaneously two times a day. Problem List As Of Date 04/25/2024 Noted Resolved Chronic alcoholic pancreatitis (HCC) [K86.0] 07/12/2023 BPH (benign prostatic hyperplasia) [N40.0] 07/12/2023 HLD (hyperlipidemia) [E78.5] 07/12/2023 Diabetes mellitus type 2, controlled, without c*07/12/2023 Depression [F32.A] 07/12/2023 Seasonal allergies [J30.2] 07/12/2023 Pancreatic cirrhosis [K86.89] 07/13/2023 Nicotine use disorder, F17.2 [F17.200] 12/30/2023 Liver abscess [K75.0] 12/30/2023 Recurrent abdominal pain [R10.9] 12/31/2023 Chronic pancreatitis (HCC) [K86.1] 12/31/2023 Poor dentition [K08.9] 12/31/2023 Lesion of bladder [N32.9] 12/31/2023 Prostate cancer (HCC) [C61] 02/23/2024 Prostate nodule [N40.2] 02/23/2024 Encounter Status:Closed by LAURA VIDAL on 04/25/24 Normal [facility] Lipid 1996 panelon Cholesterol [Mass/Vol] 99 mg/dL Normal <200 [facility] Comment on above: Order Comment: Speci men Type: BLOOD SPECIMENOrdering Facility: [facility] Address: [address] [place] [address] Result Comment: <200 mg/dL, Desirable 200-239 mg/dL, Borderline high >239 mg/dL, High Performed By: #### 2 4321-2, 23485-9, 2856-1 ####[facility] [id number] [address] STATES OF [facility] Cholesterol in HDL [Mass/Vol] 41 mg/dL Normal >39 [facility] Comment on above: Order Comment: Speci men Type: BLOOD SPECIMENOrdering Facility: [facility] Address: [address] [place] [address] Result Comment: 40-5 9 mg/dL, Acceptable >59 mg/dL, High: Negative risk factor for coronary heart disease <40 mg/dL, Low: Positive risk factor for coronary heart disease Performed By: #### 2 4321-2, 56985-7, 2856-1 ####[facility] [id number] [address] STATES OF [facility] Cholesterol in LDL [Mass/Vol] 45 mg/dL Normal <100 [facility] Comment on above: Order Comment: Speci men Type: BLOOD SPECIMENOrdering Facility: [facility] Address: [address] [place] [address] Result Comment: <100 mg/dL, Optimal 100-129 mg/dL, Near optimal/above optimal 130-159 mg/dL, Borderline high 160-189 mg/dL, High >189 mg/dL, Very high Secondary prevention optimal LDL Cholesterol levels are recommended to be < 70 mg/dL Performed By: #### 2 4321-2, 33678-3, 2856-1 ####[facility] [id number] [place] [address] [place] Cholesterol in LDL/Cholesterol in HDL [Mass ratio] 1.10 {ratio} Normal <2.54 [facility] Comment on above: Order Comment: Speci men Type: BLOOD SPECIMENOrdering Facility: [facility] Address: [address] [place] [address] Result Comment: Refe rence: 1. National Cholesterol Education Program ATP III Guideline At-A-Glance Quick Desk Reference: National Heart, Lung, and Blood [place]. National Institutes of Health. 2001: NIH Publication No. 01-3305. 2. An International Atherosclerosis Society position paper: global recommendations for the management of dyslipidemia: executive summary, Atherosclerosis. 2014: 232(2):410-413. Performed By: #### 2 4321-2, 24137-5, 285- ####[facility] [id number] [place] [address] [place] Cholesterol in VLDL [Mass/Vol] 13 mg/dL Normal <30 [facility] Comment on above: Order Comment: Speci men Type: BLOOD SPECIMENOrdering Facility: [facility] Address: [address] [place] [address] Performed By: #### 2 4321-2, 87725-9, 2856- ####[facility] [id number] [place] [address] [place] Cholesterol non HDL [Mass/Vol] 58 mg/dL Normal <130 [facility] Comment on above: Order Comment: Speci men Type: BLOOD SPECIMENOrdering Facility: [facility] Address: [address] [place] [address] Result Comment: <130 mg/dL, Optimal 130-159 mg/dL, Near optimal/above optimal 160-189 mg/dL, Borderline high 190-219 mg/dL, High >219 mg/dL, Very high Secondary prevention optimal non HDL Cholesterol levels are recommended to be <100 mg/dL Performed By: #### 2 4321-2, 01655-0, 285-1 ####[facility] [id number] [address] Cholesterol.total/Chol esterol in HDL [Mass ratio] 2.41 {ratio} Normal <5.10 [facility] Comment on above: Order Comment: Speci men Type: BLOOD SPECIMENOrdering Facility: [facility] Address: [address] [place] [address] Performed By: #### 2 4321-2, 81925-5, 2857-1 ####[facility] [id number] [address] FASTING TIME [address] [facility] Comment on above: Order Comment: Speci men Type: BLOOD SPECIMENOrdering Facility: [facility] Address: [address] [place] [address] Performed By: #### 2 4321-2, 95888-7, 2857-1 ####[facility] [id number] [address] Triglyceride [Mass/Vol] 66 mg/dL Normal <150 [facility] Comment on above: Order Comment: Speci men Type: BLOOD SPECIMENOrdering Facility: [facility] Address: [address] [place] [address] Result Comment: <150 mg/dL, Normal 150-199 mg/dL, Borderline high 200-499 mg/dL, High >499 mg/dL, Very high Performed By: #### 2 4321-2, 18277-6, 2857-1 ####[facility] [id number] [address] [place] PHOSPHATIDYLETHANOL (PETH)on 04-25-2024 EER PETH See Note Normal [facility] Comment on above: Order Comment: Speci men Type: BLOOD SPECIMENOrdering Facility: [facility] Address: [address] [place] [address] Result Comment: Auth orized individuals can access the [facility] Enhanced Report using the following link: [email or web address] Performed By: #### P ETH ####[facility]ORATORIESCLIA [id number] [place] [address] PETH 16:0/18.2 (PLPETH) 141 ng/mL [facility] Comment on above: Order Comment: Speci men Type: BLOOD SPECIMENOrdering Facility: [facility] Address: [address] [place] [address] Result Comment: Refe rence ranges are not well established. Performed By: #### P ETH ####[facility] [id number] [place] [address] PETH 16:0/18:1 (POPETH) 270 ng/mL [facility] Comment on above: Order Comment: Speci men Type: BLOOD SPECIMENOrdering Facility: [facility] Address: [address] [place] [address] Result Comment: PEth 16:0/18:1 (POPEth) Less than 10 ng/mL............Not detected Less than 20 ng/mL............Abstinence or light alcohol consumption 20 - 200 ng/mL................Moderate alcohol consumption Greater than 200 ng/mL........Heavy alcohol consumption or chronic alcohol use (Reference: Amanda Smiley and Maria Del Rosario Carey 2018 J. Forensic Sci) Performed By: #### P ETH ####[facility] [id number] [place] [address] PETH INTERPRETATION See Comment Normal [facility] [place] Comment on above: Order Comment: Speci men Type: BLOOD SPECIMENOrdering Facility: [facility] Address: [address] [place] [address] Result Comment: Phos phatidylethanol (PEth) is a group of phospholipids formed in the presence of ethanol, phospholipase D and phosphatidylcholine. PEth is known to be a direct alcohol biomarker. The predominant PEth homologues are PEth 16:0/18:1 (POPEth) and PEth 16:0/18:2 (PLPEth), which account for 37-46% and 26-28% of the total PEth homologues, respectively. PEth is incorporated into the phospholipid membrane of red blood cells and has a general half-life of 4-10 days and a window of detection of 2-4 weeks. However, the window of detection is longer in individuals who chronically or excessively consume alcohol. The limit of quantification is 10 ng/mL. Serial monitoring of PEth may be helpful in monitoring alcohol abstinence over time. PEth results should be interpreted in the context of the patient's clinical and behavioral history. Patients with advanced liver disease may have falsely elevated PEth concentrations (Madiha LOWE et al 2018, Alcoholism Clinical & Experimental Research). This test was developed and its performance characteristics determined by [facility]. It has not been cleared or approved by the U.S. Food and Drug Administration. This test was performed in a CLIA-certified laboratory and is intended for clinical purposes. Performed By: [facility] [address] [place] [address] Bill Adjuster: Brendan Amaro MD, PhD CLIA Number: [id number] Performed By: #### P ETH ####[facility] [id number] [place] [id number] PSA [facility] 04-25-2024 Prostate specific Ag [Mass/Vol] 1.38 ng/mL Normal <2.60 [facility] Comment on above: Order Comment: Speci men Type: BLOOD SPECIMENOrdering Facility: [facility] Address: [address] [place] [address] Result Comment: Tota l PSA test methodology used is the Electrochemiluminescence Immunoassay by [employer]. Total PSA values by differing methodologies cannot be interchanged. Performed By: #### 2 4321-2, 50309-1, 2857-1 ####[facility]CL[facility] [id number] [place] [address] [place] CBC W Auto Differential pane l (Bld)on 04-22-2024 Basophils (Bld) [#/Vol] 0.07 10*3/uL Normal <0.11 [facility] Comment on above: Order Comment: Speci men Type: BLOOD SPECIMEN Ordering Facility: [facility] Address: [address] [place] [address] Performed By: #### 5 7021-8 #### [facility] CLIA [id number] [address] [place] [address] [place] Basophils/100 WBC (Bld) 1.1 % Normal [facility] Comment on above: Order Comment: Speci men Type: BLOOD SPECIMEN Ordering Facility: [facility] Address: [address] [place] [address] Performed By: #### 5 7021-8 #### [facility] CLIA [id number] [address] [place] [address] [place] Differential cell count method Nom (Bld) Auto Normal [facility] Comment on above: Order Comment: Speci men Type: BLOOD SPECIMEN Ordering Facility: [facility] Address: [address] [place] [address] Performed By: #### 5 7021-8 #### [facility] CLIA [id number] [address] [place] [address] [place] Eosinophils (Bld) [#/Vol] 0.28 10*3/uL Normal <0.46 [facility] Comment on above: Order Comment: Speci men Type: BLOOD SPECIMEN Ordering Facility: [facility] Address: [address] [place] [address] Performed By: #### 5 7021-8 #### [facility] CLIA [id number] [address] [place] [address] [place] Eosinophils/100 WBC (Bld) 4.5 % Normal [facility] Comment on above: Order Comment: Speci men Type: BLOOD SPECIMEN Ordering Facility: [facility] Address: [address] [place] [address] Performed By: #### 5 7021-8 #### [facility] CLIA [id number] [address] [place] [address] [place] Erythrocyte distribution width (RBC) [Ratio] 13.2 % Normal 11.5-15.0 [facility] Comment on above: Order Comment: Speci men Type: BLOOD SPECIMEN Ordering Facility: [facility] Address: [address] [place] [address] Performed By: #### 5 7021-8 #### [facility] CLIA [id number] [address] [place] [address] [place] Hematocrit (Bld) [Volume fraction] 45.4 % Normal 39.0-51.0 [facility] Comment on above: Order Comment: Speci men Type: BLOOD SPECIMEN Ordering Facility: [facility] Address: [address] [place] [address] Performed By: #### 5 7021-8 #### [facility] CLIA [id number] [address] [place] [address] [place] Hemoglobin (Bld) [Mass/Vol] 15.3 g/dL Normal 13.0-17.0 [facility] Comment on above: Order Comment: Speci men Type: BLOOD SPECIMEN Ordering Facility: [facility] Address: [address] [place] [address] Performed By: #### 5 7021-8 #### [facility] CLIA [id number] [address] [place] [address] [place] Immature granulocytes (Bld) [#/Vol] 10*3/uL Normal <0.10 [facility] Comment on above: Order Comment: Speci men Type: BLOOD SPECIMEN Ordering Facility: [facility] Address: [address] [place] [address] Performed By: #### 5 7021-8 #### [facility] CLIA [id number] [address] [place] [address] [place] Immature granulocytes/100 WBC (Bld) 0.3 % Normal [facility] Comment on above: Order Comment: Speci men Type: BLOOD SPECIMEN Ordering Facility: [facility] Address: [address] [place] [address] Performed By: #### 5 7021-8 #### [facility] CLIA [id number] [address] [place] [address] [place] Lymphocytes (Bld) [#/Vol] 1.76 10*3/uL Normal 1.00-4.00 [facility] Comment on above: Order Comment: Speci men Type: BLOOD SPECIMEN Ordering Facility: [facility] Address: [address] [place] [address] Performed By: #### 5 7021-8 #### [facility] CLIA [id number] [address] [place] [address] [place] Lymphocytes/100 WBC (Bld) 28.1 % Normal [facility] Comment on above: Order Comment: Speci men Type: BLOOD SPECIMEN Ordering Facility: [facility] Address: [address] [place] [address] Performed By: #### 5 7021-8 #### [facility] CLIA [id number] [address] [place] [address] [place] MCH (RBC) [Entitic mass] 30.6 pg Normal 26.0-34.0 [facility] Comment on above: Order Comment: Speci men Type: BLOOD SPECIMEN Ordering Facility: [facility] Address: [address] [place] [address] Performed By: #### 5 7021-8 #### [facility] CLIA [id number] [address] [place] [address] [place] MCHC (RBC) [Mass/Vol] 33.7 g/dL Normal 30.5-36.0 [facility] Comment on above: Order Comment: Speci men Type: BLOOD SPECIMEN Ordering Facility: [facility] Address: [address] [place] [address] Performed By: #### 5 7021-8 #### [facility] CLIA [id number] [address] [place] [address] [place] MCV (RBC) [Entitic vol] 90.8 fL Normal 80.0-100.0 [facility] Comment on above: Order Comment: Speci men Type: BLOOD SPECIMEN Ordering Facility: [facility] Address: [address] [place] [address] Performed By: #### 5 7021-8 #### [facility] CLIA [id number] [address] [place] [address] [place] Monocytes (Bld) [#/Vol] 0.52 10*3/uL Normal <0.87 [facility] Comment on above: Order Comment: Speci men Type: BLOOD SPECIMEN Ordering Facility: [facility] Address: [address] [place] [address] Performed By: #### 5 7021-8 #### [facility] CLIA [id number] [address] [place] [address] [place] Monocytes/100 WBC (Bld) 8.3 % Normal [facility] Comment on above: Order Comment: Speci men Type: BLOOD SPECIMEN Ordering Facility: [facility] Address: [address] [place] [address] Performed By: #### 5 7021-8 #### [facility] CLIA [id number] [address] [place] [address] [place] Neutrophils (Bld) [#/Vol] 3.62 10*3/uL Normal 1.45-7.50 [facility] Comment on above: Order Comment: Speci men Type: BLOOD SPECIMEN Ordering Facility: [facility] Address: [address] [place] [address] Performed By: #### 5 7021-8 #### [facility] CLIA [id number] [address] [place] [address] [place] Neutrophils/100 WBC (Bld) 57.7 % Normal [facility] Comment on above: Order Comment: Speci men Type: BLOOD SPECIMEN Ordering Facility: [facility] Address: [address] [place] [address] Performed By: #### 5 7021-8 #### [facility] CLIA [id number] [address] [place] [address] [place] Nucleated RBC (Bld) [#/Vol] 10*3/uL Normal <0.01 [facility] Comment on above: Order Comment: Speci men Type: BLOOD SPECIMEN Ordering Facility: [facility] Address: [address] [place] [address] Performed By: #### 5 7021-8 #### [facility] CLIA [id number] [address] [place] [address] [place] Nucleated RBC/100 WBC (Bld) [Ratio] 0.0 /[address] [facility] Comment on above: Order Comment: Speci men Type: BLOOD SPECIMEN Ordering Facility: [facility] Address: [address] [place] [address] Performed By: #### 5 7021-8 #### [facility] CLIA [id number] [address] [place] [address] [place] Platelet mean volume (Bld) [Entitic vol] 10.2 fL Normal 9.0-12.7 [facility] Comment on above: Order Comment: Speci men Type: BLOOD SPECIMEN Ordering Facility: [facility] Address: [address] [place] [address] Performed By: #### 5 7021-8 #### [facility] CLIA [id number] [address] [place] [address] [place] Platelets (Bld) [#/Vol] 189 10*3/uL Normal 150-400 [facility] Comment on above: Order Comment: Speci men Type: BLOOD SPECIMEN Ordering Facility: [facility] Address: [address] [place] [address] Performed By: #### 5 7021-8 #### [facility] CLIA [id number] [address] [place] [address] [place] RBC (Bld) [#/Vol] 5.00 10*6/uL Normal 4.20-6.00 [facility] Comment on above: Order Comment: Speci men Type: BLOOD SPECIMEN Ordering Facility: [facility] Address: [address] [place] [address] Performed By: #### 5 7021-8 #### [facility] CLIA [id number] [address] [place] [address] [place] WBC (Bld) [#/Vol] 6.27 10*3/uL Normal 3.70-11.00 [facility] Comment on above: Order Comment: Speci men Type: BLOOD SPECIMEN Ordering Facility: [facility] Address: [address] [place] [address] Performed By: #### 5 7021-8 #### [facility] CLIA [id number] [address] [place] [address] [facility] [address] ABD/PEL W IVCONon 024 CT ABD/PEL W IVCON * * *Final Report* * * DATE OF EXAM: Apr 22 2024 9:16PM [facility] [place]BD/PEL W IVCON / PROCEDURE REASON: Pancreatitis, persistent * * * * Physician Interpretation * * * * EXAMINATION: CT ABDOMEN AND PELVIS WITH IV CONTRAST CLINICAL HISTORY: Upper abdominal pain. History of pancreatitis TECHNIQUE: CT of the abdomen and pelvis was performed using standard technique, scanning from just above the dome of the diaphragm to the symphysis pubis. MQ: CTAP_3 Contrast: IV: 100 ml of Omnipaque 350 : ml of CT Radiation dose: Integrated Dose-length product (DLP) for this visit = 604.8 mGy*cm. CT Dose Reduction Employed: Automated exposure control (AEC) COMPARISON: 03.06.24 RESULT: Liver: 20 x 19 mm right hepatic lobe hypodensity 3/138. Biliary: There is air within the lumen of the gallbladder as well as in the cystic duct Biliary stent is identified. Spleen: No mass. No splenomegaly. Pancreas: Pancreatic head edema. Absent pancreatic body and tail Adrenals: No mass. Kidneys: Tiny right renal cyst. Bilateral perinephric fat stranding and the GI tract: No dilation or wall thickening. Diverticulosis Lymph nodes: No abdominal or pelvic lymphadenopathy. Mesentery/Peritoneum: No ascites or mass. Retroperitoneum: No mass. Vasculature: Scattered atherosclerosis Pelvis: No mass, ascites or fluid collection. Bones/Soft Tissues: Severe degenerative change Lower thorax: Bilateral lower lobe atelectasis Localizer images: Unremarkable. IMPRESSION: 1. Similar appearance of the pancreatic head with edema identified. Similar calcification. 2. Common bile duct stent with pneumobilia 3. Right liver decreased attenuation focus identified measuring 20 x 19 mm Collating Machine Operator: PSCB Transcribe Date/Time: Apr 22 2024 10:02P Dictated by : MONIKA MELTON MD This examination was interpreted and the report reviewed and electronically signed by: MONIKA MELTON MD on Apr 22 2024 10:30PM EST [id number] Normal [facility] Comprehensive metabolic 2000 panelon 04-22-2024 Albumin [Mass/Vol] 4.1 g/dL Normal 3.9-4.9 [facility] Comment on above: Order Comment: Speci men Type: BLOOD SPECIMENOrdering Facility: [facility] Address: [address] [place] [address] Performed By: #### 5 643-2, 3040-3, ####[facility] [id number] [place] [address] [place] ALP [Catalytic activity/Vol] 82 U/L Normal 38-113 [facility] Comment on above: Order Comment: Speci men Type: BLOOD SPECIMENOrdering Facility: [facility] Address: [address] [place] [address] Performed By: #### 5 643-2, 3039-3, ####[facility] [id number] [place] [address] [place] ALT [Catalytic activity/Vol] 12 U/L Normal 10-54 [facility] Comment on above: Order Comment: Speci men Type: BLOOD SPECIMENOrdering Facility: [facility] Address: [address] [place] [address] Performed By: #### 5 643-2, 3, ####[facility] [id number] [address] [place] Anion gap [Moles/Vol] 11 mmol/L Normal 8-15 [facility] Comment on above: Order Comment: Speci men Type: BLOOD SPECIMENOrdering Facility: [facility] Address: [address] [place] [address] Performed By: #### 5 643-2, 0-3, ####[facility] [id number] [place] [address] [place] AST [Catalytic activity/Vol] 12 U/L Low 14-40 [facility] Comment on above: Order Comment: Speci men Type: BLOOD SPECIMENOrdering Facility: [facility] Address: [address] [place] [address] Performed By: #### 5 643-2, 0-3, ####[facility] [id number] [place] [address] [place] Bilirubin [Mass/Vol] 0.2 mg/dL Normal 0.2-1.[address] [facility] [place] Comment on above: Order Comment: Speci men Type: BLOOD SPECIMENOrdering Facility: [facility] Address: [address] [place] [address] Performed By: #### 5 643-2, 3, ####[facility] [id number] [place] [address] [place] Calcium [Mass/Vol] 9.6 mg/dL Normal 8.5-10.2 [facility] Comment on above: Order Comment: Speci men Type: BLOOD SPECIMENOrdering Facility: [facility] Address: [address] [place] [address] Performed By: #### 5 643-2, 3, ####[facility] [id number] [place] [address] [place] Chloride [Moles/Vol] 103 mmol/L Normal 98-[address] [facility] Comment on above: Order Comment: Speci men Type: BLOOD SPECIMENOrdering Facility: [facility] Address: [address] [place] [address] Performed By: #### 5 643-2, 3, ####[facility] [id number] [place] [address] [place] CO2 [Moles/Vol] 23 mmol/L Normal 22-30 [facility] Comment on above: Order Comment: Speci men Type: BLOOD SPECIMENOrdering Facility: [facility] Address: [address] [place] [address] Performed By: #### 5 643-2, 3, ####[facility] [id number] [place] [address] [place] Creatinine [Mass/Vol] 1.09 mg/dL Normal 0.73-1.22 [facility] Comment on above: Order Comment: Davis atkinson Type: BLOOD SPECIMENOrdering Facility: [facility] Address: [address] [place] [address] Performed By: #### 5 643-2, 3040-3, 98593-4 ####[facility] [id number] [place] [address] [place] Creatinine and Glomerular filtration rate.predicted panel (S/P/Bld) 75 mL/min/1.73m??? Normal >=60 [facility] Comment on above: Order Comment: Davis atkinson Type: BLOOD SPECIMENOrdering Facility: [facility] Address: [address] [place] [address] Result Comment: Genny mated Glomerular Filtration Rate (eGFR) is calculated using the 2020 CKD-EPI creatinine equation. This equation utilizes serum creatinine, sex, and age as parameters. The creatinine assay has traceable calibration to isotope dilution-mass spectrometry. Refer to KDIGO guidelines for clinical interpretation. In patients with unstable renal function, e.g. those with acute kidney injury, the eGFR may not accurately reflect actual GFR. Performed By: #### 5 643-2, 3040-3, 00381-9 ####[facility] [id number] [place] [address] [place] Glucose [Mass/Vol] 282 mg/dL High 74-99 [facility] Comment on above: Order Comment: Davis atkinson Type: BLOOD SPECIMENOrdering Facility: [facility] Address: [address] [place] [address] Result Comment: The [place] [employer] (ADA) provides guidance for cutoff values for fasting glucose and random glucose. The ADA defines fasting as no caloric intake for at least 8 hours. Fasting plasma glucose results between 100 to 125 mg/dL indicate increased risk for diabetes (prediabetes). Fasting plasma glucose results greater than or equal to 126 mg/dL meet the criteria for diagnosis of diabetes. In the absence of unequivocal hyperglycemia, results should be confirmed by repeat testing. In a patient with classic symptoms of hyperglycemia or hyperglycemic crisis, random plasma glucose results greater than or equal to 200 mg/dL meet the criteria for diagnosis of diabetes. Reference: Standards of Medical Care in Diabetes 2016, [place] [employer]. Diabetes Care. 2016.39(Suppl 1). Performed By: #### 5 643-2, 3040-3, 33143-8 ####[facility] [id number] [place] [address] [place] Potassium [Moles/Vol] 4.5 mmol/L Normal 3.7-5.1 [facility] Comment on above: Order Comment: Speci men Type: BLOOD SPECIMENOrdering Facility: [facility] Address: [address] [place] [address] Performed By: #### 5 643-2, 0-3, 93907-2 ####[facility] [id number] [place] [address] [place] Protein [Mass/Vol] 6.8 g/dL Normal 6.3-8.0 [facility] Comment on above: Order Comment: Speci men Type: BLOOD SPECIMENOrdering Facility: [facility] Address: [address] [place] [address] Performed By: #### 5 643-2, 3040-3, ####[facility] [id number] [place] [address] [place] Sodium [Moles/Vol] 137 mmol/L Normal 136-144 [facility] Comment on above: Order Comment: Speci men Type: BLOOD SPECIMENOrdering Facility: [facility] Address: [address] [place] [address] Performed By: #### 5 643-2, 0-3, 83673-9 ####[facility] [id number] [place] [address] [place] Urea nitrogen [Mass/Vol] 25 mg/dL High 9-24 [facility] Comment on above: Order Comment: Speci men Type: BLOOD SPECIMENOrdering Facility: [facility] Address: [address] [place] [address] Performed By: #### 5 643-2, 3040-3, 52233-9 ####[facility] [id number] [place] [address] [place] ECG COMPLETEon 04-22-2024 ECG COMPLETE Ventricular Rate : 6 8 BPM Atrial Rate : 68 BPM P-R Interval : 170 ms QRS Duration : 92 ms Q-T Interval : 378 ms QTC Calculation(Bazett) : 401 ms Calculated P [place] : 54 degrees Calculated R [place] : 15 degrees Calculated T [place] : 46 degrees Normal sinus rhythm Normal ECG When compared with ECG of 18-Jan-2024 03:20, No significant change was found Confirmed by NETTA KUMAR MD ([id number]) on 04/24/2024 11:15:57 PM NAME : KYLE MCDANIEL PID : [id number] : 1960 Gender : Male Race : ORD : [id number] Procedure Date : Apr 22 2024 19:28:21 Edit Date : Apr 24 2024 23:16:00 Diagnosis: Normal sinus rhythm Normal ECG When compared with ECG of 18-Jan-2024 03:20, No significant change was found Confirmed by NETTA KUMAR MD ([id number]) on 04/24/2024 11:15:57 PM Test Reason : HCS Location : 3 : ED ED Overread By : NETTA KUMAR MD Edited By : NETTA KUMAR MD Referred By : , Acquired by : , [facility] ED NOTEon 04-22-2024 ED NOTE HNO ID: [id number] Author: FACUNDO CABALLERO RN Service: ? Author Type: Registered Nurse Type: ED Notes Filed: 04/22/2024 21:00 Note Text: Provider notified that patient states pain medications did not help him at all and pain is still a 03/05. [facility] ED NOTE HNO ID: [id number] Author: FACUNDO CABALLERO RN Service: ? Author Type: Registered Nurse Type: ED Notes Filed: 04/22/2024 20:57 Note Text: Patient transported to radiology [facility] ED NOTE HNO ID: [id number] Author: KENDALL REDDING RN Service: ? Author Type: Registered Nurse Type: ED Notes Filed: 04/22/2024 18:43 Note Text: Pt ambulates to triage with C/O generalized abdominal pain for last three days. Pt states has also had nausea. Pt states has chronic pancreatitis and believes it is "flared up". Pt is alert and oriented x4, resp easy and unlabored. Pt denies fever at this time. Pt states burning with urination. Pt denies bowel complaints. [facility] ED PROV NOTEon 04-22-2024 ED PROV NOTE HNO ID: [id number] Author: DONNA BAILEY MD Service: Emergency Medicine Author Type: Physician Type: ED Provider Notes Filed: 04/22/2024 23:21 Note Text: ED Provider Note Patient Name: Kyle Mcdaniel : 1960 SERVICE DATE: 04/22/24 History Patient presents with: Abdominal Pain This is a 63-year-old male presenting to the emergency department for evaluation of abdominal pain. Patient states that over the last 3 days he has been dealing with abdominal pain. He states is diffuse sharp and stabbing. Has been associate with nausea but no vomiting. Patient has a history of chronic alcohol induced pancreatitis. He states that this feels like his prior episodes of pancreatitis. Patient follows with Dr. Elli sepulveda at [facility]. He is supposed to have a Whipple procedure he reports. Patient states that he has not drank in 7 days. He denies any fevers or chills. Denies any diarrhea. He endorses 10 out of 10 abdominal pain. Patient states that his Whipple procedure was canceled due to needing cardiac clearance, stress test and an elevated A1c. Patient reports that he is been n.p.o. trying to avoid any foods but that his pain is been to uncontrolled so he presents now. PAST MEDICAL HISTORY Diagnosis Date Alcohol abuse CHF (congestive heart failure) (HCC) Diabetes mellitus (HCC) Hx of chronic pancreatitis Hyperlipemia TIA (transient ischemic attack) PAST SURGICAL HISTORY Procedure Laterality Date ABDOMINAL SURGERY HX No family history on file. Social History Tobacco Use Smoking status: Every Day Current packs/day: 1.00 Average packs/day: 1 pack/day for 20.0 years (20.0 ttl pk-yrs) Types: Cigarettes Smokeless tobacco: Former Types: Snuff Tobacco comments: As per pt "I smoke 12-15 smokes a day, but when I drink I know its way more." Vaping Use Vaping status: Never Used Substance and Sexual Activity Alcohol use: Yes Comment: 1 pint liquor per week, depends on weeks Drug use: Never Sexual activity: Yes Partners: Female ALLERGIES Allergen Reactions Azithromycin Hives Erythromycin Hives Tylenol [Acetaminop* Hives Review of Systems Constitutional: Negative for chills and fever. HENT: Negative for congestion. Eyes: Negative for visual disturbance. Respiratory: Negative for chest tightness and shortness of breath. Cardiovascular: Negative for chest pain. Gastrointestinal: Positive for abdominal pain and nausea. Negative for diarrhea and vomiting. Endocrine: Negative for polyuria. Genitourinary: Negative for difficulty urinating. Musculoskeletal: Negative for arthralgias, neck pain and neck stiffness. Skin: Negative for rash. Neurological: Negative for dizziness, light-headedness and numbness. Psychiatric/Behavioral: Negative for behavioral problems. Physical Exam Vitals [04/22/24 1843] BP Pulse Temp Temp src Resp SpO2 Weight Height 114/80 78 36.3 ?C (97.3 ?F) Temporal 22 (!) 93 % 103.3 kg (227 lb 11.8 oz) 1.854 m (6' 1") Physical Exam Vitals and nursing note reviewed. Constitutional: General: He is not in acute distress. Appearance: He is well-developed. He is not diaphoretic. HENT: Head: Normocephalic and atraumatic. Right Ear: External ear normal. Left Ear: External ear normal. Mouth/Throat: Pharynx: No oropharyngeal exudate. Eyes: General: Right eye: No discharge. Left eye: No discharge. Conjunctiva/sclera: Conjunctivae normal. Pupils: Pupils are equal, round, and reactive to light. Neck: Thyroid: No thyromegaly. Trachea: No tracheal deviation. Cardiovascular: Rate and Rhythm: Normal rate and regular rhythm. Heart sounds: Normal heart sounds. No murmur heard. No friction rub. No gallop. Pulmonary: Effort: Pulmonary effort is normal. No respiratory distress. Breath sounds: Normal breath sounds. No stridor. Abdominal: General: There is no distension. Palpations: Abdomen is soft. There is no mass. Tenderness: There is generalized abdominal tenderness. There is guarding. There is no rebound. Comments: Patient noted to have lower midline laparotomy scar, various trocar scars noted as well. Diffuse tenderness to palpation with guarding in all quadrants. Musculoskeletal: Cervical back: Normal range of motion and neck supple. Lymphadenopathy: Cervical: No cervical adenopathy. Skin: General: Skin is warm. Capillary Refill: Capillary refill takes less than 2 seconds. Findings: No rash. Neurological: Mental Status: He is alert and oriented to person, place, and time. Diagnostic Testing ED Labs Ordered and Reviewed - No data to display Procedures ED Course / Clinical Impression Clinical Impressions as of 04/22/24 2319 Acute on chronic pancreatitis (HCC) MDM / Disposition / Plan 63-year-old male presents the emergency department for evaluation of abdominal pain. Reports history of chronic pancreatitis. Patient provided with IV fluids here pain and n (more content not included)... Normal [facility] Ethanol SerPl-mCncon 024 Ethanol [Mass/Vol] mg/dL Normal <11 [facility] Comment on above: Order Comment: Speci men Type: BLOOD SPECIMENOrdering Facility: [facility] Address: [address] [place] [address] Performed By: #### 5 643-2, 3040-3, 68868-5 ####[facility] [id number] [place] [address] [place] Lipase SerPl-cCncon 04-22-20 24 Lipase [Catalytic activity/Vol] 20 U/L Normal 16- [facility] Comment on above: Order Comment: Speci men Type: BLOOD SPECIMENOrdering Facility: [facility] Address: [address] [place] [address] Performed By: #### 5 643-2, 3040-3, 15360-2 ####[facility] [id number] [place] [address] [place] Urinalysis complete panel (U )on 04-22-2024 Bilirubin Ql (U) Negative Normal Negative [facility] Comment on above: Order Comment: Speci men Type: URINE SPECIMENOrdering Facility: [facility] Address: [address] [place] [address] Performed By: #### 2 4356-8 ####[facility] [id number] [place] [address] [place] Clarity (Unsp spec) Clear Normal Clear [facility] Comment on above: Order Comment: Speci men Type: URINE SPECIMENOrdering Facility: [facility] Address: [address] [place] [address] Performed By: #### 2 4356-8 ####[facility] [id number] [place] [address] [place] Color (U) Yellow Normal Yellow [facility] Comment on above: Order Comment: Speci men Type: URINE SPECIMENOrdering Facility: [facility] Address: [address] [place] [address] Performed By: #### 2 4356-8 ####[facility] [id number] [place] [address] [facility] Glucose Test strip (U) [Mass/Vol] 1+ Abnormal Negative [facility] Comment on above: Order Comment: Speci men Type: URINE SPECIMENOrdering Facility: [facility] Address: [address] [place] [address] Performed By: #### 2 4356-8 ####[facility] [id number] [place] [address] [place] Hemoglobin Ql (U) Negative Normal Negative [facility] Comment on above: Order Comment: Speci men Type: URINE SPECIMENOrdering Facility: [facility] Address: [address] [place] [address] Performed By: #### 2 4356-8 ####[facility] [id number] [place] [address] [place] Ketones Ql (U) Negative Normal Negative [facility] Comment on above: Order Comment: Speci men Type: URINE SPECIMENOrdering Facility: [facility] Address: [address] [place] [address] Performed By: #### 2 4356-8 ####[facility] [id number] [place] [address] [place] [facility] Leukocyte esterase Test strip Ql (U) Negative Normal Negative [facility] Comment on above: Order Comment: Speci men Type: URINE SPECIMENOrdering Facility: [facility] Address: [address] [place] [address] Performed By: #### 2 4356-8 ####[facility] [id number] [place] [address] [place] Nitrite Ql (U) Negative Normal Negative [facility] Comment on above: Order Comment: Speci men Type: URINE SPECIMENOrdering Facility: [facility] Address: [address] [place] [address] Performed By: #### 2 4356-8 ####[facility] [id number] [place] [address] [place] pH (U) 6.0 [pH] Normal 5.0-8.0 [facility] Comment on above: Order Comment: Speci men Type: URINE SPECIMENOrdering Facility: [facility] Address: [address] [place] [address] Performed By: #### 2 4356-8 ####[facility] [id number] [address] Protein (U) [Mass/Vol] Negative Normal Negative [facility] Comment on above: Order Comment: Speci men Type: URINE SPECIMENOrdering Facility: [facility] Address: [address] [place] [address] Performed By: #### 2 4356-8 ####[facility] [id number] [place] [address] [place] RBC LM.HPF (Urine sed) [#/Area] 0-3 /HPF Normal 0-3 /HPF [facility] Comment on above: Order Comment: Speci men Type: URINE SPECIMENOrdering Facility: [facility] Address: [address] [place] [address] Performed By: #### 2 4356-8 ####[facility] [id number] [address] Specific gravity (U) [Rel density] 1.025 Normal 1.005-1.030 [facility] Comment on above: Order Comment: Speci men Type: URINE SPECIMENOrdering Facility: [facility] Address: [address] [address] [place], [place] [id number] Performed By: #### 2 4356-8 ####[facility] [id number] [place] [address] [facility] Urobilinogen Ql (U) 1.0 EU/dL Normal 0.2-1.0 EU/dL [facility] Comment on above: Order Comment: Speci men Type: URINE SPECIMENOrdering Facility: [facility] Address: [address] [place] [address] Performed By: #### 2 4356-8 ####[facility] [id number] [place] [address] [place] WBC LM.HPF (Urine sed) [#/Area] 0-5 /HPF Normal 0-5 /HPF [facility] Comment on above: Order Comment: Speci men Type: URINE SPECIMENOrdering Facility: [facility] Address: [address] [place] [address] Performed By: #### 2 4356-8 ####[facility] [id number] [address] [place] CNOVon 04-12-2024 CNOV Office Visit (AGCARDPOB) KYLE MCDANIEL ([id number]) 1960 M Date Time Provider Department 04/12/24 3:20 PM KEVIN MOLINA During your visit today, we recorded the following information about you: Pulse Blood pressure Weight 95/minute 108/78 101.3 kg Abigail Bernal MA 04/12/2024 4:37 PM Signed Patient denies cardiac complaints or symptoms. Kevin Molina MD 04/12/2024 4:06 PM Addendum Start metoprolol and lisinopril Bloodwork in 10-14 days after starting above meds Stress test Quit drinking/smoking Limit fluids to 64 ounces daily; limit sodium to 2000 mg daily Kevin Molina MD 04/12/2024 4:37 PM Signed PRIMARY CARE PHYSICIAN: [address] [place] [address] REFERRING PHYSICIAN: Gia Calloway MD 1 [facility] [address] [place] [id number] CHIEF COMPLAINT: Preoperative cardiac risk assessment prior to Whipple procedure by Dr. Calloway HISTORY OF PRESENT ILLNESS: Mr. Mcdaniel is a 63 year old male with a history of diabetes, hyperlipidemia, multiple prior TIAs, degenerative disc disease, cardiomyopathy with stage B heart failure, chronic pancreatitis from ongoing alcohol abuse and tobacco abuse who was referred to cardiology clinic for preoperative cardiac risk assessment prior to Whipple procedure. Patient reports a longstanding history of tobacco and alcohol abuse. He reports smoking on average half a pack a day for the last 45 years and is currently down to smoking 5 cigarettes daily. He does report a history of heavy alcohol abuse and reports he has been drinking since the age of 6. He reports that he was drinking on average 24 beers a day for decades with a maximum of 68 beers in a day. In the last couple years, he has transition to hard liquor and has been drinking at least 3 to 4 pints a week. In this setting, patient has developed chronic pancreatitis with recent MRI concerning for pancreatic mass/malignancy. He has been recommended Whipple procedure. As part of his evaluation, patient did recently undergo an echocardiogram revealing mild LV dysfunction with ejection fraction 45% with no significant valve disease. As a result, he was referred to cardiology clinic for further preoperative cardiac risk assessment. In discussion with the patient, he denies any complaints of chest pain, dyspnea on exertion, orthopnea, paroxysmal nocturnal dyspnea, lower extremity edema, presyncope, syncope, or palpitations. He is largely sedentary and does not engage in any regular exercise. He reports the most active thing he has done in the last several months is climb a flight of stairs. His underlying risk factors include insulin-dependent diabetes, multiple prior TIAs, hyperlipidemia and ongoing tobacco and alcohol abuse. He denies any history of known atherosclerotic cardiovascular disease, chronic kidney disease or clinical congestive heart failure. PAST MEDICAL HISTORY Diagnosis Date Alcohol abuse CHF (congestive heart failure) (HCC) Diabetes mellitus (HCC) Hx of chronic pancreatitis Hyperlipemia TIA (transient ischemic attack) PAST SURGICAL HISTORY Procedure Laterality Date ABDOMINAL SURGERY HX MEDICATIONS: ygxwxp-yoakhjcd-abpbubt (CREON 12) 12,000-38,000 -60,000 unit delayed release capsule Take 1 capsule by mouth with meals and at bedtime. ondansetron HCl (ZOFRAN ORAL) Take by mouth. thiamine (VITAMIN B1) 100 mg tablet Take 1 tablet by mouth once daily. insulin lispro (HUMALOG KWIKPEN INSULIN) 100 unit/mL Inject 5 Units subcutaneously three times a day with meals. aspirin, enteric coated (ASPIRIN, ENTERIC COATED) 81 mg EC tablet Take 81 mg by mouth once daily. traZODone (DESYREL) 100 mg tablet Take 100 mg by mouth daily at bedtime. thiamine (VITAMIN B1) 100 mg tablet Take 100 mg by mouth once daily. ondansetron orally disintegrating (ZOFRAN ODT) 4 mg disintegrating tablet Take 1 tablet by mouth every 8 hours as needed. tamsulosin (FLOMAX) 0.4 mg Take 0.4 mg by mouth once daily. rosuvastatin (CRESTOR) 40 mg tablet Take 40 mg by mouth once daily. metFORMIN ER (GLUMETZA) 1,000 mg 24 hr tablet Take 1,000 mg by mouth two times a day. sertraline (ZOLOFT) 50 mg tablet Take 50 mg by mouth once daily. montelukast (SINGULAIR) 10 mg tablet Take 10 mg by mouth daily at bedtime. LORATADINE ORAL Take 10 mg by mouth once daily. LANTUS SOLOSTAR U-100 INSULIN 100 unit/mL (3 mL) Inject 25 Units subcutaneously two times a day. metoprolol succinate ER (TOPROL XL) 25 mg 24 hr tablet Take 0.5 tablets by mouth once daily. lisinopril 2.5 mg tablet Take 1 tablet by mouth once daily. ALLERGIES Allergen Reactions Azithromycin Hives Erythromycin Hives Tylenol [Acetaminop* Hives SOCIAL HISTORY: Social History Tobacco Use Smoking status: Every Day Current packs/ (more content not included)... Normal [facility] ECG B/O W INTERP (MED OFFICE )on 04-12-2024 Normal sinus rhythm. Normal EKG [facility] CNPNon 04-11-2024 CNPN Telephone (AGGENS3) KYLE MCDANIEL ([id number]) 1960 M Date Time Provider Department 04/11/24 TRACEY BROWN AGGENS3 During your visit today, we recorded the following information about you: Tracey Brown APRN.CNP 04/11/2024 2:00 PM Signed [facility] ART CONSERVATOR NOTE Discussed the purpose of the [facility]. Reviewed modifiable risk factors identified in the [facility]: Spoke to Adia on the phone for updates. EXERCISE: He has not started wearing his pedometer to track his steps, and he has not increased his activity. Encouraged to increase activity as much as possible prior to surgery. BREATHING: He was using his IS a few times a day, but has not used this recently. Encouraged to increase use to 30-40 breaths/day. He still continues to smoke, about 5 a day still, does not want patches or gum ordered at this time. NUTRITION: Appetite is still "hit or miss." Has met with a Pneumatic Tool Operator. Reports has glucometer reader, BG has been under 200 recently. He is still drinking, has repeat labs from surgeon on 04/25/2024. Suggested a support group. Reviewed high protein food sources. Encouraged to include a protein source with each meal. [facility] Recovery to start 5 days prior to procedure, BID. STRESS RELIEF: Education given to patient for stress reduction/management. Patient does not seem motivated to participate in plan of care. He is on Zoloft 50 mg, but has been on this dose for some time now, suggested perhaps asking PCP for an increase in dosage. Stressed the importance of physical activity and its effects on mood. OR DATE: TBD Agreeable to a follow up call in: three weeks Tracey Brown APRN.CNP April 11, 2024 Allergies As of Date: 04/11/2024 Noted Allergy Reaction AZITHROMYCIN 11/08/2022 4 - Hives ERYTHROMYCIN 01/04/2023 4 - Hives TYLENOL (ACETAMINOPHEN) 12/30/2023 4 - Hives Date Reviewed: 03/22/2024 Reviewed by: Marlon Jimenez RN - Fully Assessed Reason for Visit: Patient Update [1234] Order(s):lipase-proteas e-amylase (CREON 12) 12,000-38,000 -60,000 unit delayed release capsuleTake 1 capsule by mouth with meals and at bedtime.Disp: 120 capsuleRfl: 2 Prescriptions as of 04/11/2024 - yskesb-wuevszvp-dtnmkxz (CREON 12) 12,000-38,000 -60,000 unit delayed release capsule Take 1 capsule by mouth with meals and at bedtime. - ergocalciferol 50,000 unit capsule (VITAMIN D2, DRISDOL) Take 1 capsule by mouth one time a week. - ondansetron HCl (ZOFRAN ORAL) Take by mouth. - thiamine (VITAMIN B1) 100 mg tablet Take 1 tablet by mouth once daily. - semaglutide (OZEMPIC) 0.25 mg or 0.5 mg (2 mg/3 mL) pen Inject 0.5 mg subcutaneously one time a week. - levoFLOXacin (LEVAQUIN) 750 mg tablet One po daily for 3 days,first dose 2 hours prior procedure - insulin lispro (HUMALOG KWIKPEN INSULIN) 100 unit/mL Inject 5 Units subcutaneously three times a day with meals. - aspirin, enteric coated (ASPIRIN, ENTERIC COATED) 81 mg EC tablet Take 81 mg by mouth once daily. - traZODone (DESYREL) 100 mg tablet Take 100 mg by mouth daily at bedtime. - thiamine (VITAMIN B1) 100 mg tablet Take 100 mg by mouth once daily. - ondansetron orally disintegrating (ZOFRAN ODT) 4 mg disintegrating tablet Take 1 tablet by mouth every 8 hours as needed. - tamsulosin (FLOMAX) 0.4 mg Take 0.4 mg by mouth once daily. - rosuvastatin (CRESTOR) 40 mg tablet Take 40 mg by mouth once daily. - metFORMIN ER (GLUMETZA) 1,000 mg 24 hr tablet Take 1,000 mg by mouth two times a day. - sertraline (ZOLOFT) 50 mg tablet Take 50 mg by mouth once daily. - montelukast (SINGULAIR) 10 mg tablet Take 10 mg by mouth daily at bedtime. - LORATADINE ORAL Take 10 mg by mouth once daily. - LANTUS SOLOSTAR U-100 INSULIN 100 unit/mL (3 mL) Inject 25 Units subcutaneously two times a day. Problem List As Of Date 04/11/2024 Noted Resolved Chronic alcoholic pancreatitis (HCC) [K86.0] 07/12/2023 BPH (benign prostatic hyperplasia) [N40.0] 07/12/2023 HLD (hyperlipidemia) [E78.5] 07/12/2023 Diabetes mellitus type 2, controlled, without c*07/12/2023 Depression [F32.A] 07/12/2023 Seasonal allergies [J30.2] 07/12/2023 Pancreatic cirrhosis [K86.89] 07/13/2023 Nicotine use disorder, F17.2 [F17.200] 12/30/2023 Liver abscess [K75.0] 12/30/2023 Recurrent abdominal pain [R10.9] 12/31/2023 Chronic pancreatitis (HCC) [K86.1] 12/31/2023 Poor dentition [K08.9] 12/31/2023 Lesion of bladder [N32.9] 12/31/2023 Prostate cancer (HCC) [C61] 02/23/2024 Prostate nodule [N40.2] 02/23/2024 Prescriptions ordered this encounter Disp Refills Start End [id number] 12,000-38,00* 120 * 2 04/11/2024 Route: ORAL Sig: Take 1 capsule by mouth with meals and at bedtime. Medications Discontinued During This Encounter Prescriptions - lipase-pro (more content not included)... Normal [facility] ECHOon 03-30-2024 CONCLUSIONS: - Technically difficult exam due to suboptimal positioning and poor acoustic windows. - Exam indication: Heart failure - The left ventricle is small. Left ventricular systolic function is mildly decreased. EF = 45 5% (2D 4-ch.) - The right ventricle is normal in size. Right ventricular systolic function is normal. the ef to wa is 55%, - Exam was compared with the prior echocardiographic exam performed on 08/02/20. * * * Final * * * [facility] Echocardiography Report: Transthoracic Echo [facility] Date of service: 03/29/2024 10:10:40 AM Ordering physician: TRACEY BROWN Indication: Heart failure Technologist: Abigail Sorensen RDCS, RVT Interpreting physician: Kyle Gilman DO PATIENT: Name: KYLE MCDANIEL : 1960 Age: 63 years Gender: M Primary rhythm: sinus. Height: 185.40 cm BSA: 2.27 m Weight: 100.24 kg BMI: 29.2 kg/m Heart rate 87 bpm Blood pressure 142/88 mmHg Technically difficult exam due to suboptimal positioning and poor acoustic windows. Color Doppler was utilized to interrogate the cardiac valves assessed and spectral Doppler was utilized to determine the flow velocities and pressure gradients reported in this exam. MEASUREMENTS: Value Indexed Normal Max aortic dimension 2.5 cm Ao < 3.8 Left atrial volume 45 ml (biplane A-L) 20 ml/m Silvino <= 34 LV stroke volume 33 ml (2D 4-ch.) LVOT stroke volume 41 ml 18 ml/m LV end diastolic volume 74 ml (2D 4-ch.) 32.6 ml/m 34<=EDVi<75 LV end systolic volume 41 ml (2D 4-ch.) 18.1 ml/m Ejection Fraction 45 % (2D 4-ch.) EF > 52 FINDINGS: LEFT VENTRICLE The left ventricle is small. Left ventricular systolic function is mildly decreased. Normal left ventricular diastolic function. Mitral annular lateral E/e': 5.9. Mitral annular septal E/e': 8.9. Wall Motion: All scored segments are normal. RIGHT VENTRICLE The right ventricle is normal in size. Right ventricular systolic function is normal. RV systolic tissue Doppler velocity is 11.0 cm/s. Tricuspid annular displacement is 2.2 cm. Estimated right ventricular systolic pressure is not reported due to an insufficient tricuspid regurgitation signal. Estimated right atrial pressure is 3 mmHg based on IVC assessment. LEFT ATRIUM The left atrial cavity is normal in size. RIGHT ATRIUM The right atrial cavity is normal in size. Inferior Vena Cava: The inferior vena cava appears normal measuring 1.4 cm. The vessel decreases greater than 50 percent with inspiration. MITRAL VALVE There is no mitral valve regurgitation. There is mild thickening. There is mild calcification. The peak mitral valve gradient is 7 mmHg. The mean mitral valve gradient is 2 mmHg. The pressure half time is 49 msec. The peak mitral E/A ratio is 0.50. The average mitral E/e' ratio is 7.4. The mitral flow deceleration time is 169 msec. TRICUSPID VALVE The tricuspid valve leaflets are structurally normal. There is trace tricuspid valve regurgitation. AORTIC VALVE The aortic valve was not seen or not interrogated. There is no aortic valve regurgitation. The peak gradient is 4 mmHg (peak velocity = 96.6 cm/s). The mean gradient is 2 mmHg. The LVOT mean velocity is 50.0 cm/s. The LVOT diameter is 2.2 cm. The aortic VTI is 14.3 cm. The mean velocity in the aortic valve is 69.5 cm/s. The dimensionless valve index is 0.79. AV area is 2.86 cm (1.26 cm /m ) by continuity, VTI. The LVOT stroke volume index is 18 ml/m . PULMONIC VALVE The pulmonic valve cusps are structurally normal. There is trace pulmonic valve regurgitation. The peak gradient is 2 mmHg. The mean gradient is 1 mmHg. The mean velocity in the pulmonic valve is 51.8 cm/s. AORTA The visualized aorta is normal in size. Measurements - Mid arch 2.5 cm. PULMONARY ARTERIES The pulmonary arteries are normal. INTERATRIAL SEPTUM There is no evidence of intracardiac shunting as detected by Doppler. PERICARDIUM There is no pericardial effusion. [facility] LVEF ECHOon 03-30-2024 Interpretation and review of laboratory results Abnormal [facility] LV Ejection Fraction 45 % Abnormal NINF - 52 % [facility] Comment on above: (2D 4-ch.) EF > 52 An LV Ejection Fraction of > 50% is normal No Panel Informationon 03-30 [facility] CBC panel Auto (Bld)on 03-29 Erythrocyte distribution width (RBC) [Ratio] 13.8 % Normal 11.5-15.0 [facility] Comment on above: Order Comment: Speci men Type: BLOOD SPECIMEN Ordering Facility: [facility] Address: [address] [place] [id number] Performed By: #### 5 7021-8 #### [facility] CLIA [id number] [address] [place] [address] [place] Hematocrit (Bld) [Volume fraction] 49.5 % Normal 39.0-51.0 [facility] Comment on above: Order Comment: Speci men Type: BLOOD SPECIMEN Ordering Facility: [facility] Address: [address] [place] [address] Performed By: #### 5 7021-8 #### [facility] CLIA [id number] [address] [place] [address] [place] Hemoglobin (Bld) [Mass/Vol] 17.1 g/dL High 13.0-17.0 [facility] Comment on above: Order Comment: Speci men Type: BLOOD SPECIMEN Ordering Facility: [facility] Address: [address] [place] [address] Performed By: #### 5 7021-8 #### [facility] CLIA [id number] [address] [place] [address] [place] MCH (RBC) [Entitic mass] 30.2 pg Normal 26.0-34.0 [facility] Comment on above: Order Comment: Speci men Type: BLOOD SPECIMEN Ordering Facility: [facility] Address: [address] [place] [address] Performed By: #### 5 7021-8 #### [facility] CLIA [id number] [address] [place] [address] [place] MCHC (RBC) [Mass/Vol] 34.5 g/dL Normal 30.5-36.0 [facility] Comment on above: Order Comment: Speci men Type: BLOOD SPECIMEN Ordering Facility: [facility] Address: [address] [place] [address] Performed By: #### 5 7021-8 #### [facility] CLIA [id number] [address] [place] [address] [place] MCV (RBC) [Entitic vol] 87.3 fL Normal 80.0-100.0 [facility] Comment on above: Order Comment: Speci men Type: BLOOD SPECIMEN Ordering Facility: [facility] Address: [address] [place] [address] Performed By: #### 5 7021-8 #### [facility] CLIA [id number] [address] [place] [address] [place] Nucleated RBC (Bld) [#/Vol] 10*3/uL Normal <0.01 [facility] Comment on above: Order Comment: Speci men Type: BLOOD SPECIMEN Ordering Facility: [facility] Address: [address] [place] [address] Performed By: #### 5 7021-8 #### [facility] CLIA [id number] [address] [place] [address] [place] Platelet mean volume (Bld) [Entitic vol] 10.5 fL Normal 9.0-12.7 [facility] Comment on above: Order Comment: Speci men Type: BLOOD SPECIMEN Ordering Facility: [facility] Address: [address] [place] [address] Performed By: #### 5 7021-8 #### [facility] CLIA [id number] [address] [place] [address] [place] Platelets (Bld) [#/Vol] 239 10*3/uL Normal 150-400 [facility] Comment on above: Order Comment: Speci men Type: BLOOD SPECIMEN Ordering Facility: [facility] Address: [address] [place] [address] Performed By: #### 5 7021-8 #### [facility] CLIA [id number] [address] [place] [address] [place] RBC (Bld) [#/Vol] 5.67 10*6/uL Normal 4.20-6.00 [facility] Comment on above: Order Comment: Speci men Type: BLOOD SPECIMEN Ordering Facility: [facility] Address: [address] [place] [address] Performed By: #### 5 7021-8 #### [facility] CLIA [id number] [address] [place] [address] [place] WBC (Bld) [#/Vol] 6.42 10*3/uL Normal 3.70-11.00 [facility] Comment on above: Order Comment: Speci men Type: BLOOD SPECIMEN Ordering Facility: [facility] Address: [address] [place] [address] Performed By: #### 5 7021-8 #### [facility] CLIA [id number] [address] [place] [address] [place] [facility] Comprehensive metabolic 2000 panelon 03-29-2024 Albumin [Mass/Vol] 4.3 g/dL Normal 3.9-4.9 [facility] Comment on above: Order Comment: Speci men Type: BLOOD SPECIMENOrdering Facility: [facility] Address: [address] [place] [address] Performed By: #### 2 4323-8 ####[facility] [id number] [place] [address] [place] ALP [Catalytic activity/Vol] 101 U/L Normal 38-113 [facility] Comment on above: Order Comment: Speci men Type: BLOOD SPECIMENOrdering Facility: [facility] Address: [address] [place] [address] Performed By: #### 2 4323-8 ####[facility] [id number] [place] [address] [place] ALT [Catalytic activity/Vol] 22 U/L Normal 10-54 [facility] Comment on above: Order Comment: Speci men Type: BLOOD SPECIMENOrdering Facility: [facility] Address: [address] [place] [address] Performed By: #### 2 4323-8 ####[facility] [id number] [place] [address] [place] Anion gap [Moles/Vol] 16 mmol/L High 8-15 [facility] Comment on above: Order Comment: Speci men Type: BLOOD SPECIMENOrdering Facility: [facility] Address: [address] [place] [address] Performed By: #### 2 4323-8 ####[facility] [id number] [place] [address] [place] AST [Catalytic activity/Vol] 20 U/L Normal 14-40 [facility] Comment on above: Order Comment: Speci men Type: BLOOD SPECIMENOrdering Facility: [facility] Address: [address] [address] Performed By: #### 2 4323-8 ####[facility] [id number] [place] [address] [place] Bilirubin [Mass/Vol] 0.6 mg/dL Normal 0.2-1.[address] [facility] [place] [place] Comment on above: Order Comment: Speci men Type: BLOOD SPECIMENOrdering Facility: [facility] Address: [address] [place], [place] [address] Performed By: #### 2 4323-8 ####[facility] [id number] [place] [address] [place] Calcium [Mass/Vol] 10.5 mg/dL High 8.5-10.2 [facility] Comment on above: Order Comment: Speci men Type: BLOOD SPECIMENOrdering Facility: [facility] Address: [address] [place] [address] Performed By: #### 2 4323-8 ####[facility] [id number] [place] [address] [place] Chloride [Moles/Vol] 101 mmol/L Normal 98-[address] [facility] [place] Comment on above: Order Comment: Speci men Type: BLOOD SPECIMENOrdering Facility: [facility] Address: [address] [place] [address] Performed By: #### 2 4323-8 ####[facility] [id number] [place] [address] [place] CO2 [Moles/Vol] 22 mmol/L Normal 22-30 [facility] Comment on above: Order Comment: Speci men Type: BLOOD SPECIMENOrdering Facility: [facility] Address: [address] [place], [place] [address] Performed By: #### 2 4323-8 ####[facility] [id number] [place] [address] [place] Creatinine [Mass/Vol] 0.86 mg/dL Normal 0.73-1.22 [facility] Comment on above: Order Comment: [place] Type: BLOOD SPECIMENOrdering Facility: [facility] Address: [address] [place] [address] Performed By: #### 2 4323-8 ####[facility] [id number] [place] [address] [place] Creatinine and Glomerular filtration rate.predicted panel (S/P/Bld) 96 mL/min/1.73m??? Normal >=60 [facility] Comment on above: Order Comment: [place] Type: BLOOD SPECIMENOrdering Facility: [facility] Address: [address] [place] [address] Result Comment: Genny mated Glomerular Filtration Rate (eGFR) is calculated using the 2020 CKD-EPI creatinine equation. This equation utilizes serum creatinine, sex, and age as parameters. The creatinine assay has traceable calibration to isotope dilution-mass spectrometry. Refer to KDIGO guidelines for clinical interpretation. In patients with unstable renal function, e.g. those with acute kidney injury, the eGFR may not accurately reflect actual GFR. Performed By: #### 2 4323-8 ####[facility] [id number] [place] [address] [place] Glucose [Mass/Vol] 280 mg/dL High 74-99 [facility] Comment on above: Order Comment: [place] at[place] Type: BLOOD SPECIMENOrdering Facility: [facility] Address: [address] [place] [address] Result Comment: The [place] [employer] (ADA) provides guidance for cutoff values for fasting glucose and random glucose. The ADA defines fasting as no caloric intake for at least 8 hours. Fasting plasma glucose results between 100 to 125 mg/dL indicate increased risk for diabetes (prediabetes). Fasting plasma glucose results greater than or equal to 126 mg/dL meet the criteria for diagnosis of diabetes. In the absence of unequivocal hyperglycemia, results should be confirmed by repeat testing. In a patient with classic symptoms of hyperglycemia or hyperglycemic crisis, random plasma glucose results greater than or equal to 200 mg/dL meet the criteria for diagnosis of diabetes. Reference: Standards of Medical Care in Diabetes 2016, [place] [employer] Association. Diabetes Care. 2016.39(Suppl 1). Performed By: #### 2 4323-8 ####[facility] [id number] [place] [address] [place] Potassium [Moles/Vol] 3.7 mmol/L Normal 3.7-5.1 [facility] Comment on above: Order Comment: Speci men Type: BLOOD SPECIMENOrdering Facility: [facility] Address: [address] [place] [address] Performed By: #### 2 4323-8 ####[facility] [id number] [place] [address] [place] Protein [Mass/Vol] 7.5 g/dL Normal 6.3-8.0 [facility] Comment on above: Order Comment: Speci men Type: BLOOD SPECIMENOrdering Facility: [facility] Address: [address] [place] [address] Performed By: #### 2 4323-8 ####[facility] [id number] [place] [address] [place] Sodium [Moles/Vol] 139 mmol/L Normal 136-144 [facility] Comment on above: Order Comment: Speci men Type: BLOOD SPECIMENOrdering Facility: [facility] Address: [address] [place] [address] Performed By: #### 2 4323-8 ####[facility] [id number] [place] [address] [place] Urea nitrogen [Mass/Vol] 13 mg/dL Normal 9-24 [facility] Comment on above: Order Comment: Speci men Type: BLOOD SPECIMENOrdering Facility: [facility] Address: [address] [place] [address] Performed By: #### 2 4323-8 ####[facility] [id number] [place] [address] [place] ECHOon 03-29-2024 Echocardiography Echocardiography Report: Transthoracic Echo [facility] Date of service: 03/29/2024 10:10:40 AM Ordering physician: TRACEY BROWN Indication: Heart failure Technologist: Abigail Sorensen RDCS, RVT Interpreting physician: Kyle Gilman DO PATIENT: Name: KYLE MCDANIEL : 1960 Age: 63 years Gender: M Primary rhythm: sinus. Height: 185.40 cm BSA: 2.27 m Weight: 100.24 kg BMI: 29.2 kg/m Heart rate 87 bpm Blood pressure 142/88 mmHg Technically difficult exam due to suboptimal positioning and poor acoustic windows. Color Doppler was utilized to interrogate the cardiac valves assessed and spectral Doppler was utilized to determine the flow velocities and pressure gradients reported in this exam. MEASUREMENTS: Value Indexed Normal Max aortic dimension 2.5 cm Ao < 3.8 Left atrial volume 45 ml (biplane A-L) 20 ml/m Silvino <= 34 LV stroke volume 33 ml (2D 4-ch.) LVOT stroke volume 41 ml 18 ml/m LV end diastolic volume 74 ml (2D 4-ch.) 32.6 ml/m 34<=EDVi<75 LV end systolic volume 41 ml (2D 4-ch.) 18.1 ml/m Ejection Fraction 45 % (2D 4-ch.) EF > 52 FINDINGS: LEFT VENTRICLE The left ventricle is small. Left ventricular systolic function is mildly decreased. Normal left ventricular diastolic function. Mitral annular lateral E/e': 5.9. Mitral annular septal E/e': 8.9. Wall Motion: All scored segments are normal. RIGHT VENTRICLE The right ventricle is normal in size. Right ventricular systolic function is normal. RV systolic tissue Doppler velocity is 11.0 cm/s. Tricuspid annular displacement is 2.2 cm. Estimated right ventricular systolic pressure is not reported due to an insufficient tricuspid regurgitation signal. Estimated right atrial pressure is 3 mmHg based on IVC assessment. LEFT ATRIUM The left atrial cavity is normal in size. RIGHT ATRIUM The right atrial cavity is normal in size. Inferior Vena Cava: The inferior vena cava appears normal measuring 1.4 cm. The vessel decreases greater than 50 percent with inspiration. MITRAL VALVE There is no mitral valve regurgitation. There is mild thickening. There is mild calcification. The peak mitral valve gradient is 7 mmHg. The mean mitral valve gradient is 2 mmHg. The pressure half time is 49 msec. The peak mitral E/A ratio is 0.50. The average mitral E/e' ratio is 7.4. The mitral flow deceleration time is 169 msec. TRICUSPID VALVE The tricuspid valve leaflets are structurally normal. There is trace tricuspid valve regurgitation. AORTIC VALVE The aortic valve was not seen or not interrogated. There is no aortic valve regurgitation. The peak gradient is 4 mmHg (peak velocity = 96.6 cm/s). The mean gradient is 2 mmHg. The LVOT mean velocity is 50.0 cm/s. The LVOT diameter is 2.2 cm. The aortic VTI is 14.3 cm. The mean velocity in the aortic valve is 69.5 cm/s. The dimensionless valve index is 0.79. AV area is 2.86 cm (1.26 cm /m ) by continuity, VTI. The LVOT stroke volume index is 18 ml/m . PULMONIC VALVE The pulmonic valve cusps are structurally normal. There is trace pulmonic valve regurgitation. The peak gradient is 2 mmHg. The mean gradient is 1 mmHg. The mean velocity in the pulmonic valve is 51.8 cm/s. AORTA The visualized aorta is normal in size. Measurements - Mid arch 2.5 cm. PULMONARY ARTERIES The pulmonary arteries are normal. INTERATRIAL SEPTUM There is no evidence of intracardiac shunting as detected by Doppler. PERICARDIUM There is no pericardial effusion. CONCLUSIONS: - Technically difficult exam due to suboptimal positioning and poor acoustic windows. - Exam indication: Heart failure - The left ventricle is small. Left ventricular systolic function is mildly decreased. EF = 45 5% (2D 4-ch.) - The right ventricle is normal in size. Right ventricular systolic function is normal. the ef to wa is 55%, - Exam was compared with the prior CC echocardiographic exam performed on 08/02/20. * * * Final * * * CC Q Interactive Medical Image : [id number] [facility] HbA1c (Bld)on 03-29-2024 Average glucose Estimated from glycated hemoglobin (Bld) [Mass/Vol] 223 mg/dL [facility] Comment on above: Order Comment: Speci men Type: BLOOD SPECIMENOrdering Facility: [facility] Address: [address] [place] [address] Result Comment: eAG: (Estimated average glucose) is a calculated value from HgbA1c and is product support representative of the average blood glucose level in the last 2-3 month period. Performed By: #### 5 5454-3 ####[facility] LABCL[facility] [id number] [place] [address] [facility] [place] HbA1c (Bld) [Mass fraction] 9.4 % High 4.3-6.1 [facility] Comment on above: Order Comment: Speci [facility] Type: BLOOD SPECIMENOrdering Facility: [facility] Address: [address] [place] [address] Result Comment: [place] Diabetes Association guidelines indicate that patients with HgbA1c in the range 5.7-6.4% are at increased risk for development of diabetes, and intervention by lifestyle modification may be beneficial. HgbA1c greater or equal to 6.5% is considered diagnostic of diabetes. Performed By: #### 5 5454-3 ####[facility] LABCL[facility] [id number] [place] [address] [place] PHOSPHATIDYLETHANOL (PETH)on 03-29-2024 EER PETH See Note [facility] Comment on above: Order Comment: Speci [facility] Type: BLOOD SPECIMENOrdering Facility: [facility] Address: [address] [place] [address] Result Comment: Auth orized individuals can access the Lightspeed Enhanced Report using the following link: [email or web address] Performed By: #### P ETH ####[facility] [id number] [place] [address] PETH 16:0/18.2 (PLPETH) 360 ng/mL [facility] Comment on above: Order Comment: Speci men Type: BLOOD SPECIMENOrdering Facility: [facility] Address: [address] [place] [address] Result Comment: Refe rence ranges are not well established. Performed By: #### P ETH ####[facility]OR[facility]IESCL[facility] [id number] [place] [address] PETH 16:0/18:1 (POPETH) 512 ng/mL [facility] Comment on above: Order Comment: Speci men Type: BLOOD SPECIMENOrdering Facility: [facility] Address: [address] [place] [address] Result Comment: PEth 16:0/18:1 (POPEth) Less than 10 ng/mL............Not detected Less than 20 ng/mL............Abstinence or light alcohol consumption 20 - 200 ng/mL................Moderate alcohol consumption Greater than 200 ng/mL........Heavy alcohol consumption or chronic alcohol use (Reference: Amanda Smiley and Maria Del Rosario Carey 2018 J. Forensic Sci) Performed By: #### P ETH ####[facility] LABORATORIESIA [id number] [place] [address] PETH INTERPRETATION See Comment Normal [facility] [place] Comment on above: Order Comment: Speci men Type: BLOOD SPECIMENOrdering Facility: [facility] Address: [address] [place] [address] Result Comment: Phos phatidylethanol (PEth) is a group of phospholipids formed in the presence of ethanol, phospholipase D and phosphatidylcholine. PEth is known to be a direct alcohol biomarker. The predominant PEth homologues are PEth 16:0/18:1 (POPEth) and PEth 16:0/18:2 (PLPEth), which account for 37-46% and 26-28% of the total PEth homologues, respectively. PEth is incorporated into the phospholipid membrane of red blood cells and has a general half-life of 4-10 days and a window of detection of 2-4 weeks. However, the window of detection is longer in individuals who chronically or excessively consume alcohol. The limit of quantification is 10 ng/mL. Serial monitoring of PEth may be helpful in monitoring alcohol abstinence over time. PEth results should be interpreted in the context of the patient's clinical and behavioral history. Patients with advanced liver disease may have falsely elevated PEth concentrations (Madiha LOWE et al 2018, Alcoholism Clinical & Experimental Research). This test was developed and its performance characteristics determined by [facility]. It has not been cleared or approved by the U.S. Food and Drug Administration. This test was performed in a CLIA-certified laboratory and is intended for clinical purposes. Performed By: [facility] [address] [place] [address] Bill Adjuster: Brendan Amaro MD, PhD CLIA Number: [id number] Performed By: #### P ETH ####[facility]ORATORIESCLIA [id number] [place] [address] ED PROV NOTEon 03-22-2024 ED PROV NOTE HNO ID: [id number] Author: TONI MARIE APRN.TETE Service: Emergency Medicine Author Type: Nurse Practitioner Type: ED Provider Notes Filed: 03/22/2024 20:06 Note Text: ED Provider Note Patient Name: Kyle Mcdaniel : 1960 SERVICE DATE: 03/21/24 History Patient presents with: Dog Bite: Dog bite to left hand, happened [employer], families dog, shots up to date Patient is a 63-year-old male who presents the emergency department for multiple dog bites to the bilateral hands and left forearm. Himself and his family member tried to separate their 2 dogs from fighting. This resulted in both of them being bit by large dogs and presenting to the ER. He has oozing of blood at the left hand and forearm. Bleeding is controlled on the right hand. He denies any numbness and tingling and states he does not think anything is broken. Unknown last tetanus. States the dogs are up-to-date on vaccines. Denies any other injury. History provided by: Patient PAST MEDICAL HISTORY Diagnosis Date Alcohol abuse Diabetes mellitus (HCC) Hx of chronic pancreatitis Hyperlipemia TIA (transient ischemic attack) PAST SURGICAL HISTORY Procedure Laterality Date ABDOMINAL SURGERY HX No family history on file. Social History Tobacco Use Smoking status: Every Day Current packs/day: 1.00 Average packs/day: 1 pack/day for 20.0 years (20.0 ttl pk-yrs) Types: Cigarettes Smokeless tobacco: Former Types: Snuff Tobacco comments: As per pt "I smoke 12-15 smokes a day, but when I drink I know its way more." Vaping Use Vaping status: Never Used Substance and Sexual Activity Alcohol use: Yes Comment: 1 pint liquor per week, depends on weeks Drug use: Never Sexual activity: Yes Partners: Female ALLERGIES Allergen Reactions Azithromycin Hives Erythromycin Hives Tylenol [Acetaminop* Hives Review of Systems Musculoskeletal: Positive for arthralgias, joint swelling and myalgias. Skin: Positive for wound. Physical Exam Vitals BP Pulse Temp Temp src Resp SpO2 Weight Height 03/22/24 0004 03/22/24 0004 03/21/24 2359 03/21/24 2359 03/22/24 0004 03/22/24 0004 03/22/24 0004 03/22/24 0004 103/89 (!) 99 36.5 ?C (97.7 ?F) Oral 18 95 % 101.9 kg (224 lb 10.4 oz) 1.854 m (6' 1") Physical Exam Constitutional: General: He is not in acute distress. Appearance: Normal appearance. He is not ill-appearing, toxic-appearing or diaphoretic. HENT: Head: Normocephalic and atraumatic. Eyes: General: No scleral icterus. Right eye: No discharge. Left eye: No discharge. Extraocular Movements: Extraocular movements intact. Conjunctiva/sclera: Conjunctivae normal. Pupils: Pupils are equal, round, and reactive to light. Cardiovascular: Rate and Rhythm: Normal rate and regular rhythm. Pulses: Normal pulses. Pulmonary: Effort: Pulmonary effort is normal. No respiratory distress. Musculoskeletal: General: Swelling, tenderness and signs of injury present. No deformity. Cervical back: Normal range of motion and neck supple. No rigidity or tenderness. Right lower leg: No edema. Left lower leg: No edema. Comments: Multiple puncture wounds less than 1cm to bilateral hands and left forearm. Blood oozing from left extremity wounds. Near full range of motion in bilateral extremities, reduced due to pain. Neurovascularly intact. Skin: General: Skin is warm and dry. Capillary Refill: Capillary refill takes less than 2 seconds. Coloration: Skin is not jaundiced or pale. Findings: No erythema or rash. Neurological: General: No focal deficit present. Mental Status: He is alert and oriented to person, place, and time. Mental status is at baseline. Cranial Nerves: No cranial nerve deficit. Motor: No weakness. Psychiatric: Mood and Affect: Mood normal. Behavior: Behavior normal. Thought Content: Thought content normal. Judgment: Judgment normal. Diagnostic Testing ED Labs Ordered and Reviewed - No data to display Procedures ED Course / Clinical Impression Clinical Impressions as of 03/22/24 0033 Dog bite of multiple sites MDM / Disposition / Plan Patient's wounds were thoroughly irrigated out with normal saline and a syringe. X-ray imaging of bilateral hands and left forearm negative for acute fracture dislocation or foreign body. Tdap updated. Patient given Augmentin for prophylaxis dog bite and prescribed Augmentin for home. Patient is diabetic and is encouraged to follow-up with his PCP for wound reevaluation. I have discussed the importance of wound care and signs symptoms to return to the emergency department. He is neurovascularly intact with full range of motion. Prescriptions for pain sent to his pharmacy. History and Record Review External record(s) reviewed: PDMP reviewed. Management Radiology Reports XR HAND GENERAL 3V PA/LAT/OBL RIGHT Final Result IMPRESSION: See result. Collating Machine Operator: ARMINDA Transcribe Date/Time: Feb (more content not included)... [facility] XR FOREARM 2V AP/LAT LTon XR FOREARM 2V AP/LAT LT * * *Final Report* * * DATE OF EXAM: Mar 22 2024 12:24AM [id number] - XR FOREARM 2V AP/LAT LT / PROCEDURE REASON: Trauma * * * * Physician Interpretation * * * * EXAMINATION: XR FOREARM 2V AP/LAT LT, XR HAND 3V PA/LAT/OBL RT, XR HAND 3V PA/LAT/OBL LT CLINICAL HISTORY: Trauma Technique: XR FOREARM 2V AP/LAT LT, XR HAND 3V PA/LAT/OBL RT, XR HAND 3V PA/LAT/OBL LT Comparison: None. RESULT: No acute fracture or dislocation. Alignment is anatomic. 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 At most mild severity osteoarthritis throughout the remainder of both hands. Soft tissue injury is evident at the LEFT distal forearm. No retained radiopaque foreign body or soft tissue gas. No radiographic abnormality of the soft tissues of the RIGHT hand. IMPRESSION: See result. Collating Machine Operator: ARMINDA Transcribe Date/Time: Mar 22 2024 1:22A Dictated by : WILLIAMS DEXTER MD This examination was interpreted and the report reviewed and electronically signed by: WILLIAMS DEXTER MD on Mar 22 2024 1:24AM EST [id number] XR HAND 3V PA/LAT/OBL LTon 0 03-22-2024 XR HAND 3V PA/LAT/OBL LT * * *Final Report* * * DATE OF EXAM: Mar 22 2024 12:24AM [id number] - XR HAND 3V PA/LAT/OBL LT / PROCEDURE REASON: Trauma * * * * Physician Interpretation * * * * EXAMINATION: XR FOREARM 2V AP/LAT LT, XR HAND 3V PA/LAT/OBL RT, XR HAND 3V PA/LAT/OBL LT CLINICAL HISTORY: Trauma Technique: XR FOREARM 2V AP/LAT LT, XR HAND 3V PA/LAT/OBL RT, XR HAND 3V PA/LAT/OBL LT Comparison: None. RESULT: No acute fracture or dislocation. Alignment is anatomic. 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 At most mild severity osteoarthritis throughout the remainder of both hands. Soft tissue injury is evident at the LEFT distal forearm. No retained radiopaque foreign body or soft tissue gas. No radiographic abnormality of the soft tissues of the RIGHT hand. IMPRESSION: See result. Collating Machine Operator: PSCB Transcribe Date/Time: Mar 22 2024 1:22A Dictated by : WILLIAMS DEXTER MD This examination was interpreted and the report reviewed and electronically signed by: WILLIAMS DEXTER MD on Mar 22 2024 1:24AM EST [id number] XR HAND 3V PA/LAT/OBL RTon 0 03-22-2024 XR HAND 3V PA/LAT/OBL RT * * *Final Report* * * DATE OF EXAM: Mar 22 2024 12:24AM [id number] - XR HAND 3V PA/LAT/OBL RT / PROCEDURE REASON: Trauma * * * * Physician Interpretation * * * * EXAMINATION: XR FOREARM 2V AP/LAT LT, XR HAND 3V PA/LAT/OBL RT, XR HAND 3V PA/LAT/OBL LT CLINICAL HISTORY: Trauma Technique: XR FOREARM 2V AP/LAT LT, XR HAND 3V PA/LAT/OBL RT, XR HAND 3V PA/LAT/OBL LT Comparison: None. RESULT: No acute fracture or dislocation. Alignment is anatomic. 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 At most mild severity osteoarthritis throughout the remainder of both hands. Soft tissue injury is evident at the LEFT distal forearm. No retained radiopaque foreign body or soft tissue gas. No radiographic abnormality of the soft tissues of the RIGHT hand. IMPRESSION: See result. Collating Machine Operator: ARMINDA Transcribe Date/Time: Mar 22 2024 1:22A Dictated by : WILLIAMS DEXTER MD This examination was interpreted and the report reviewed and electronically signed by: WILLIAMS DEXTER MD on Mar 22 2024 1:24AM EST [id number] Normal [facility] CBC W Auto Differential pane l (Bld)on 03-06-2024 Basophils (Bld) [#/Vol] 0.07 10*3/uL Normal <0.11 [facility] Comment on above: Order Comment: Speci men Type: BLOOD SPECIMENOrdering Facility: [facility] Address: [address] [place] [address] Performed By: #### 5 7021-8 ####[facility] [id number] [place] [address] [place] Basophils/100 WBC (Bld) 0.9 % Normal [facility] Comment on above: Order Comment: Speci men Type: BLOOD SPECIMENOrdering Facility: [facility] Address: [address] [place] [address] Performed By: #### 5 7021-8 ####[facility] [id number] [place] [address] [place] Differential cell count method Nom (Bld) Auto Normal [facility] Comment on above: Order Comment: Speci men Type: BLOOD SPECIMENOrdering Facility: [facility] Address: [address] [place] [address] Performed By: #### 5 7021-8 ####[facility] [id number] [place] [address] [place] Eosinophils (Bld) [#/Vol] 0.25 10*3/uL Normal <0.46 [facility] Comment on above: Order Comment: Speci men Type: BLOOD SPECIMENOrdering Facility: [facility] Address: [address] [place] [address] Performed By: #### 5 7021-8 ####[facility] [id number] [place] [address] [place] Eosinophils/100 WBC (Bld) 3.3 % Normal [facility] Comment on above: Order Comment: Speci men Type: BLOOD SPECIMENOrdering Facility: [facility] Address: [address] [place] [address] Performed By: #### 5 7021-8 ####[facility] [id number] [place] [address] [place] Erythrocyte distribution width (RBC) [Ratio] 14.7 % Normal 11.5-15.0 [facility] Comment on above: Order Comment: Speci men Type: BLOOD SPECIMENOrdering Facility: [facility] Address: [address] [place] [address] Performed By: #### 5 7021-8 ####[facility] [id number] [place] [address] [place] Hematocrit (Bld) [Volume fraction] 47.9 % Normal 39.0-51.0 [facility] Comment on above: Order Comment: Speci men Type: BLOOD SPECIMENOrdering Facility: [facility] Address: [address] [place] [address] Performed By: #### 5 7021-8 ####[facility] [id number] [place] [address] [place] Hemoglobin (Bld) [Mass/Vol] 16.1 g/dL Normal 13.0-17.0 [facility] Comment on above: Order Comment: Speci men Type: BLOOD SPECIMENOrdering Facility: [facility] Address: [address] [place] [address] Performed By: #### 5 7021-8 ####[facility] [id number] [place] [address] [place] Immature granulocytes (Bld) [#/Vol] 10*3/uL Normal <0.10 [facility] Comment on above: Order Comment: Speci men Type: BLOOD SPECIMENOrdering Facility: [facility] Address: [address] [place] [address] Performed By: #### 5 7021-8 ####[facility] [id number] [address] Immature granulocytes/100 WBC (Bld) 0.1 % Normal [facility] Comment on above: Order Comment: Speci men Type: BLOOD SPECIMENOrdering Facility: [facility] Address: [address] [place] [address] Performed By: #### 5 7021-8 ####[facility] [id number] [address] [place] [facility] Lymphocytes (Bld) [#/Vol] 2.65 10*3/uL Normal 1.00-4.00 [facility] Comment on above: Order Comment: Speci men Type: BLOOD SPECIMENOrdering Facility: [facility] Address: [address] [place] [address] Performed By: #### 5 7021-8 ####[facility] [id number] [address] Lymphocytes/100 WBC (Bld) 35.0 % Normal [facility] Comment on above: Order Comment: Speci men Type: BLOOD SPECIMENOrdering Facility: [facility] Address: [address] [place] [address] Performed By: #### 5 7021-8 ####[facility] [id number] [place] [address] [place] MCH (RBC) [Entitic mass] 29.5 pg Normal 26.0-34.0 [facility] Comment on above: Order Comment: Speci men Type: BLOOD SPECIMENOrdering Facility: [facility] Address: [address] [place] [address] Performed By: #### 5 7021-8 ####[facility] [id number] [place] [address] [place] MCHC (RBC) [Mass/Vol] 33.6 g/dL Normal 30.5-36.0 [facility] Comment on above: Order Comment: Speci men Type: BLOOD SPECIMENOrdering Facility: [facility] Address: [address] [place] [address] Performed By: #### 5 7021-8 ####[facility] [id number] [place] [address] [place] [facility] MCV (RBC) [Entitic vol] 87.7 fL Normal 80.0-100.0 [facility] Comment on above: Order Comment: Speci men Type: BLOOD SPECIMENOrdering Facility: [facility] Address: [address] [place] [address] Performed By: #### 5 7021-8 ####[facility] [id number] [address] [place] Monocytes (Bld) [#/Vol] 0.45 10*3/uL Normal <0.87 [facility] Comment on above: Order Comment: Speci men Type: BLOOD SPECIMENOrdering Facility: [facility] Address: [address] [place] [address] Performed By: #### 5 7021-8 ####[facility] [id number] [address] Monocytes/100 WBC (Bld) 5.9 % Normal [facility] Comment on above: Order Comment: Speci men Type: BLOOD SPECIMENOrdering Facility: [facility] Address: [address] [place] [address] Performed By: #### 5 7021-8 ####[facility] [id number] [place] [address] [place] Neutrophils (Bld) [#/Vol] 4.14 10*3/uL Normal 1.45-7.50 [facility] Comment on above: Order Comment: Speci men Type: BLOOD SPECIMENOrdering Facility: [facility] Address: [address] [place] [address] Performed By: #### 5 7021-8 ####[facility] [id number] [place] [address] [place] Neutrophils/100 WBC (Bld) 54.8 % Normal [facility] Comment on above: Order Comment: Speci men Type: BLOOD SPECIMENOrdering Facility: [facility] Address: [address] [place] [address] Performed By: #### 5 7021-8 ####[facility] [id number] [place] [address] [place] Nucleated RBC (Bld) [#/Vol] 10*3/uL Normal <0.01 [facility] Comment on above: Order Comment: Speci men Type: BLOOD SPECIMENOrdering Facility: [facility] Address: [address] [place] [address] Performed By: #### 5 7021-8 ####[facility] [id number] [place] [address] [place] Nucleated RBC/100 WBC (Bld) [Ratio] 0.0 /[address] [facility] Comment on above: Order Comment: Speci men Type: BLOOD SPECIMENOrdering Facility: [facility] Address: [address] [place] [address] Performed By: #### 5 7021-8 ####[facility] [id number] [place] [address] [place] Platelet mean volume (Bld) [Entitic vol] 9.9 fL Normal 9.0-12.7 [facility] Comment on above: Order Comment: Speci men Type: BLOOD SPECIMENOrdering Facility: [facility] Address: [address] [place] [address] Performed By: #### 5 7021-8 ####[facility] [id number] [place] [address] [place] Platelets (Bld) [#/Vol] 202 10*3/uL Normal 150-400 [facility] Comment on above: Order Comment: Speci men Type: BLOOD SPECIMENOrdering Facility: [facility] Address: [address] [place] [address] Performed By: #### 5 7021-8 ####[facility] [id number] [place] [address] [place] RBC (Bld) [#/Vol] 5.46 10*6/uL Normal 4.20-6.00 [facility] Comment on above: Order Comment: Speci men Type: BLOOD SPECIMENOrdering Facility: [facility] Address: [address] [place] [address] Performed By: #### 5 7021-8 ####[facility] [id number] [place] [address] [place] [facility] WBC (Bld) [#/Vol] 7.57 10*3/uL Normal 3.70-11.00 [facility] Comment on above: Order Comment: Speci men Type: BLOOD SPECIMENOrdering Facility: [facility] Address: [address] [place] [address] Performed By: #### 5 7021-8 ####[facility] [id number] [place] [address] [facility] [place] CT ABD/PEL W IVCONon 024 CT ABD/PEL W IVCON * * *Final Report* * * DATE OF EXAM: Mar 06 2024 3:56AM [facility] [place]BD/PEL W IVCON / PROCEDURE REASON: Pancreatitis * * * * Physician Interpretation * * * * EXAMINATION: CT ABD/PEL W IVCON INDICATION: Pancreatitis Pancreatitis, abdominal pain, 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 Contrast: IV: 100 ml of Omnipaque 350 : ml of CT Radiation dose: Integrated Dose-length product (DLP) for this visit = 580.6 mGy*cm. CT Dose Reduction Employed: Automated exposure control (AEC) FINDINGS: Lower Thorax: Bibasilar opacity, probably atelectasis/scarring. Liver: Decreased ill-defined right anterior liver hypodensity. Gallbladder/Biliary: Common bile duct stent in place with pneumobilia. Spleen: Unremarkable. Pancreas: Atrophic/absent body and tail. Minimal adjacent stranding abutting the SMV, unchanged. Calcification noted in the head. No obvious mass appreciated on the current study, not dedicated pancreas protocol. Adrenals: No mass. Kidneys: Right renal cyst. No hydronephrosis. Vasculature: Atherosclerotic calcifications. No abdominal aortic aneurysm. GI Tract: No wall thickening or obstruction. Normal appendix. Pelvis: No pelvic mass. Mesentery/Peritoneum/Re troperitoneum: Small loculated perigastric fluid, similar to prior. Lymph Nodes: Stable enlarged portacaval node, 1.6 cm short axis. Bones and soft tissues: Degenerative changes. Small ventral fat-containing hernias. Audio Specialist (topogram) images: No additional findings. IMPRESSION: 1. Unchanged minimal stranding adjacent to the pancreatic head, which may be sequelae of prior pancreatitis. 2. Common bile duct stent in place with pneumobilia. 3. Decreased ill-defined right liver hypodensity, likely resolving cholangitis/infection. Collating Machine Operator: [facility] Transcribe Date/Time: Mar 06 2024 5:01A Dictated by : LUIS SHARMA MD This examination was interpreted and the report reviewed and electronically signed by: LUIS SHARMA MD on Mar 06 2024 5:28AM EST [id number] Normal [facility] Comprehensive metabolic 2000 panelon 03-06-2024 Albumin [Mass/Vol] 4.3 g/dL Normal 3.9-4.9 [facility] Comment on above: Order Comment: Speci china Type: BLOOD SPECIMENOrdering Facility: [facility] Address: [address] [place] [address] Performed By: #### 3 040-3, 5643-2, 69298-7 ####[facility] [id number] [address] [place] OF [facility] ALP [Catalytic activity/Vol] 113 U/L Normal 38-113 [facility] Comment on above: Order Comment: Speci men Type: BLOOD SPECIMENOrdering Facility: [facility] Address: [address] [place] [address] Performed By: #### 3 040-3, 5643-2, 55683-6 ####[facility] [id number] [place] [address] [place] ALT [Catalytic activity/Vol] 13 U/L Normal 10-54 [facility] Comment on above: Order Comment: Speci men Type: BLOOD SPECIMENOrdering Facility: [facility] Address: [address] [place] [address] Performed By: #### 3 040-3, 5643-2, ####[facility] [id number] [place] [address] [place] Anion gap [Moles/Vol] 11 mmol/L Normal 8-15 [facility] Comment on above: Order Comment: Speci men Type: BLOOD SPECIMENOrdering Facility: [facility] Address: [address] [place] [address] Performed By: #### 3 040-3, 5643-2, ####[facility] [id number] [place] [address] [place] AST [Catalytic activity/Vol] 11 U/L Low 14-40 [facility] Comment on above: Order Comment: Speci men Type: BLOOD SPECIMENOrdering Facility: [facility] Address: [address] [place] [address] Performed By: #### 3 040-3, 43-2, ####[facility] [id number] [place] [address] [place] Bilirubin [Mass/Vol] 0.3 mg/dL Normal 0.2-1.[address] [facility] [place] Comment on above: Order Comment: Speci men Type: BLOOD SPECIMENOrdering Facility: [facility] Address: [address] [place] [address] Performed By: #### 3 040-3, 5643-2, ####[facility] [id number] [place] [address] [place] Calcium [Mass/Vol] 9.5 mg/dL Normal 8.5-10.2 [facility] Comment on above: Order Comment: Speci men Type: BLOOD SPECIMENOrdering Facility: [facility] Address: [address] [place] [address] Performed By: #### 3 040-3, 5643-2, 50561-9 ####[facility] [id number] [place] [address] [place] Chloride [Moles/Vol] 97 mmol/L Low 98-[address] [facility] [place] Comment on above: Order Comment: Speci men Type: BLOOD SPECIMENOrdering Facility: [facility] Address: [address] [place] [address] Performed By: #### 3 040-3, 5643-2, ####[facility] [id number] [place] [address] [place] CO2 [Moles/Vol] 28 mmol/L Normal 22-30 [facility] Comment on above: Order Comment: Speci men Type: BLOOD SPECIMENOrdering Facility: [facility] Address: [address] [place] [address] Performed By: #### 3 040-3, 5643-2, ####[facility] [id number] [place] [address] [place] Creatinine [Mass/Vol] 0.88 mg/dL Normal 0.73-1.22 [facility] Comment on above: Order Comment: Speci men Type: BLOOD SPECIMENOrdering Facility: [facility] Address: [address] [place] [address] Performed By: #### 3 040-3, 5643-2, 10400-3 ####[facility] [id number] [place] [address] [place] Creatinine and Glomerular filtration rate.predicted panel (S/P/Bld) 95 mL/min/1.73m??? Normal >=60 [facility] Comment on above: Order Comment: Speci men Type: BLOOD SPECIMENOrdering Facility: [facility] Address: [address] [place] [address] Result Comment: Genny mated Glomerular Filtration Rate (eGFR) is calculated using the 2020 CKD-EPI creatinine equation. This equation utilizes serum creatinine, sex, and age as parameters. The creatinine assay has traceable calibration to isotope dilution-mass spectrometry. Refer to KDIGO guidelines for clinical interpretation. In patients with unstable renal function, e.g. those with acute kidney injury, the eGFR may not accurately reflect actual GFR. Performed By: #### 3 040-3, 5643-2, 04790-2 ####[facility] [id number] [place] [address] [place] Glucose [Mass/Vol] 302 mg/dL High 74-99 [facility] Comment on above: Order Comment: Davis atkinson Type: BLOOD SPECIMENOrdering Facility: [facility] Address: [address] [place] [address] Result Comment: The [place] [employer] (ADA) provides guidance for cutoff values for fasting glucose and random glucose. The ADA defines fasting as no caloric intake for at least 8 hours. Fasting plasma glucose results between 100 to 125 mg/dL indicate increased risk for diabetes (prediabetes). Fasting plasma glucose results greater than or equal to 126 mg/dL meet the criteria for diagnosis of diabetes. In the absence of unequivocal hyperglycemia, results should be confirmed by repeat testing. In a patient with classic symptoms of hyperglycemia or hyperglycemic crisis, random plasma glucose results greater than or equal to 200 mg/dL meet the criteria for diagnosis of diabetes. Reference: Standards of Medical Care in Diabetes 2016, [place] [employer] Association. Diabetes Care. 2016.39(Suppl 1). Performed By: #### 3 040-3, 5643-2, 14844-6 ####[facility] [id number] [place] [address] [place] Potassium [Moles/Vol] 3.7 mmol/L Normal 3.7-5.1 [facility] Comment on above: Order Comment: [place] Type: BLOOD SPECIMENOrdering Facility: [facility] Address: [address] [place] [address] Performed By: #### 3 040-3, 5643-2, 49414-7 ####[facility] [id number] [place] [address] [place] Protein [Mass/Vol] 7.3 g/dL Normal 6.3-8.0 [facility] Comment on above: Order Comment: Speci men Type: BLOOD SPECIMENOrdering Facility: [facility] Address: [address] [place], [place] [address] Performed By: #### 3 040-3, 5643-2, 77641-4 ####[facility] [id number] [place] [address] [place] Sodium [Moles/Vol] 136 mmol/L Normal 136-144 [facility] Comment on above: Order Comment: Speci men Type: BLOOD SPECIMENOrdering Facility: [facility] Address: [address] [place] [address] Performed By: #### 3 040-3, 5643-2, 49399-4 ####[facility] [id number] [place] [address] [facility] Urea nitrogen [Mass/Vol] 10 mg/dL Normal 9-24 [facility] Comment on above: Order Comment: Speci men Type: BLOOD SPECIMENOrdering Facility: [facility] Address: [address] [place] [address] Performed By: #### 3 040-3, 5643-2, 40091-7 ####[facility] [id number] [place] [address] [facility] ED NOTEon 03-06-2024 ED NOTE HNO ID: [id number] Author: VERONICA WILL RN Service: Emergency Medicine Author Type: Registered Nurse Type: ED Notes Filed: 03/07/2024 12:33 Note Text: Emergency Services: ED Call Back Questionnaire SERVICE DATE: 03/06/2024 Are you feeling better? Yes Any questions about discharge instructions and follow-up care? No Were you able to make a follow up appointment? Yes Do you have any further questions? No Is there anything that we could have done differently to improve your ED visit? No SIGNATURE: Veronica Will RN PATIENT NAME: Kyle Mcdaniel DATE: March 07, 2024 TIME: 12:[address] [facility] ED PROV NOTEon 03-06-2024 ED PROV NOTE HNO ID: [id number] Author: AKOSUA HERNANDEZ MD Service: ? Author Type: Physician Type: ED Provider Notes Filed: 03/06/2024 05:31 Note Text: ED Provider Note Patient Name: Kyle Mcdaniel : 1960 SERVICE DATE: 03/06/24 History Patient presents with: Abdominal Pain: Abd pain x 4 weeks,vomiting hy pancreatitis, This patient is a 63-year-old male who presents with abdominal pain. Patient has a history of chronic pancreatitis. He was recently admitted with ID and GI consults. He underwent ERCP/EUS with FNA he had cytology sent which showed atypical cells. He actually had an appointment yesterday in [place] and they are planning for surgical procedure next month. Patient states he has been having uncontrolled pain for about the last month with intermittent vomiting over the last 3 weeks. History is limited as patient appears to be clinically intoxicated. PAST MEDICAL HISTORY No date: Alcohol abuse No date: Diabetes mellitus (HCC) No date: Hx of chronic pancreatitis No date: Hyperlipemia No date: TIA (transient ischemic attack) PAST SURGICAL HISTORY No date: ABDOMINAL SURGERY HX No family history on file. Social History Tobacco Use - Smoking status: Every Day Current packs/day: 1.00 Average packs/day: 1 pack/day for 20.0 years (20.0 ttl pk-yrs) Types: Cigarettes - Smokeless tobacco: Former Types: Snuff - Tobacco comments: As per pt "I smoke 12-15 smokes a day, but when I drink I know its way more." Vaping Use - Vaping status: Never Used Substance and Sexual Activity - Alcohol use: Yes Comment: 1 pint liquor per week - Drug use: Never - Sexual activity: Yes Partners: Female ALLERGIES Allergen Reactions - Azithromycin Hives - Erythromycin Hives - Tylenol [Acetaminop* Hives Review of Systems Physical Exam Vitals [03/06/24 0202] BP Pulse Temp Temp src Resp SpO2 Weight Height 104/89 75 36.4 ?C (97.5 ?F) Oral 20 97 % 97.7 kg (215 lb 6.2 oz) 1.854 m (6' 1") Physical Exam Vitals reviewed. Constitutional: Comments: Patient initially belligerent yelling out at staff, he was really directable and more calm at the time my history and exam. HENT: Head: Normocephalic. Mouth/Throat: Mouth: Mucous membranes are moist. Eyes: Extraocular Movements: Extraocular movements intact. Cardiovascular: Rate and Rhythm: Normal rate and regular rhythm. Pulmonary: Effort: Pulmonary effort is normal. Abdominal: Palpations: Abdomen is soft. Comments: Laparotomy scar noted, patient's abdomen is soft without guarding rebound or rigidity but he does have diffuse tenderness greatest in the epigastrium Skin: General: Skin is warm and dry. Neurological: Mental Status: He is alert. Psychiatric: Mood and Affect: Mood normal. Diagnostic Testing ED Labs Ordered and Reviewed COMPREHENSIVE METABOLIC PANEL - Abnormal; Notable for the following components: Result Value Ref Range AST 11 (*) 14 - 40 U/L Glucose 302 (*) 74 - 99 mg/dL Chloride 97 (*) 98 - 107 mmol/L All other components within normal limits COMPLETE BLOOD COUNT AND DIFFERENTIAL URINALYSIS WITH MICROSCOPIC, REFLEX CULTURE LIPASE ETHANOL/ALCOHOL Procedures ED Course / Clinical Impression Clinical Impressions as of 03/06/24 0531 Chronic abdominal pain MDM / Disposition / Plan Patient was symptomatically treated with fluids morphine Zofran. He is improved on reevaluation. Labs show serum alcohol of 256. Lipase normal at 13. Labs otherwise unremarkable. CT shows unchanged minimal stranding adjacent to the pancreatic head. Patient does have a common bile duct stent in place. Patient requesting discharge. SIGNATURE: Akosua Hernandez MD - AKOSUA HERNANDEZ 03/06/[address] [facility] Ethanol Madeleinel-mCncon 024 Ethanol [Mass/Vol] 256 mg/dL High <11 [facility] Comment on above: Order Comment: Speci men Type: BLOOD SPECIMENOrdering Facility: [facility] Address: [address] [place], [place] [address] Result Comment: Valu es > 80 mg/dL may indicate intoxication Performed By: #### 3 040-3, 5643-2, 46196-2 ####[facility] [id number] [place] [address] [place] Lipase SerPl-cCncon 03-06-20 24 Lipase [Catalytic activity/Vol] 13 U/L Low 16-61 [facility] Comment on above: Order Comment: Speci men Type: BLOOD SPECIMENOrdering Facility: [facility] Address: [address] [place] [address] Performed By: #### 3 040-3, 5643-2, 86786-2 ####[facility] [id number] [place] [address] [place] Urinalysis complete panel (U )on 03-06-2024 Bilirubin Ql (U) Negative Normal Negative [facility] Comment on above: Order Comment: Speci men Type: URINE SPECIMEN Ordering Facility: [facility] Address: [address] [place] [address] Performed By: #### 2 4356-8 #### [facility]IA [id number] [address] [place] [address] [place] Clarity (Unsp spec) Clear Normal Clear [facility] Comment on above: Order Comment: Speci men Type: URINE SPECIMEN Ordering Facility: [facility] Address: [address] [place] [address] Performed By: #### 2 4356-8 #### [facility] [id number] [address] [place] [address] [place] Color (U) Yellow Normal Yellow [facility] Comment on above: Order Comment: Speci men Type: URINE SPECIMEN Ordering Facility: [facility] Address: [address] [place] [address] Performed By: #### 2 4356-8 #### [facility] [id number] [address] [place] [address] [place] Glucose Test strip (U) [Mass/Vol] 1+ Abnormal Negative [facility] Comment on above: Order Comment: Speci men Type: URINE SPECIMEN Ordering Facility: [facility] Address: [address] [place] [address] Performed By: #### 2 4356-8 #### [facility] [id number] [address] [place] [address] [place] Hemoglobin Ql (U) Negative Normal Negative [facility] Comment on above: Order Comment: Speci men Type: URINE SPECIMEN Ordering Facility: [facility] Address: [address] [place] [address] Performed By: #### 2 4356-8 #### [facility] [id number] [address] [place] [address] [place] Ketones Ql (U) Negative Normal Negative [facility] Comment on above: Order Comment: Speci men Type: URINE SPECIMEN Ordering Facility: [facility] Address: [address] [place] [address] Performed By: #### 2 4356-8 #### [facility] [id number] [address] [place] [address] [place] Leukocyte esterase Test strip Ql (U) Negative Normal Negative [facility] Comment on above: Order Comment: Speci men Type: URINE SPECIMEN Ordering Facility: [facility] Address: [address] [place] [address] Performed By: #### 2 4356-8 #### [facility] [id number] [address] [place] [address] [place] Nitrite Ql (U) Negative Normal Negative [facility] Comment on above: Order Comment: Speci men Type: URINE SPECIMEN Ordering Facility: [facility] Address: [address] [place] [address] Performed By: #### 2 4356-8 #### [facility] [id number] [address] [place] [address] [place] pH (U) 6.0 [pH] Normal 5.0-8.0 [facility] Comment on above: Order Comment: Speci men Type: URINE SPECIMEN Ordering Facility: [facility] Address: [address] [place] [address] Performed By: #### 2 4356-8 #### [facility] [id number] [address] [place] [address] [place] Protein (U) [Mass/Vol] Negative Normal Negative [facility] Comment on above: Order Comment: Speci men Type: URINE SPECIMEN Ordering Facility: [facility] Address: [address] [place] [address] Performed By: #### 2 4356-8 #### [facility]IA [id number] [address] [place] [address] [place] RBC LM.HPF (Urine sed) [#/Area] 0-3 /HPF Normal 0-3 /HPF [facility] Comment on above: Order Comment: Speci men Type: URINE SPECIMEN Ordering Facility: [facility] Address: [address] [place] [address] Performed By: #### 2 4356-8 #### [facility]IA [id number] [address] [place] [address] [place] Specific gravity (U) [Rel density] <=1.005 Normal 1.005-1.030 [facility] Comment on above: Order Comment: Speci men Type: URINE SPECIMEN Ordering Facility: [facility] Address: [address] [place] [address] Performed By: #### 2 4356-8 #### [facility] CLIA [id number] [address] [place], [place] [address] [place] Urobilinogen Ql (U) 0.2 EU/dL Normal 0.2-1.0 EU/dL [facility] Comment on above: Order Comment: Speci men Type: URINE SPECIMEN Ordering Facility: [facility] Address: [address] [place] [address] Performed By: #### 2 4356-8 #### [facility] CLIA [id number] [address] [place] [address] [place] WBC LM.HPF (Urine sed) [#/Area] 0-5 /HPF Normal 0-5 /HPF [facility] Comment on above: Order Comment: Speci men Type: URINE SPECIMEN Ordering Facility: [facility] Address: [address] [place] [address] Performed By: #### 2 4356-8 #### [facility] CLIA [id number] [address] [place] [address] [place] CNOVon 02-23-2024 CNOV Office Visit (URCANT ) KYLE MCDANIEL ([id number]) 1960 M Date Time Provider Department 02/23/24 8:40 AM JEWEL FUENTES [facility] During your visit today, we recorded the following information about you: Jewel Fuentes MD 02/23/2024 9:58 AM Signed [facility] ESTABLISHED PATIENT OFFICE VISIT HISTORY OF PRESENT ILLNESS Kyle Mcdaniel is a 63 year old male who is here for follow up of elevated PSA Has had a prostate needle biopsy performed couple weeks ago and pathology report came back positive for adenocarcinoma of the prostate Enoch score 6 affecting the mid right lobe denies any fever or chills secondary to biopsy. Patient was previously referred by [facility] for prostate needle biopsy History of incomplete bladder emptying Review of Systems The remainder of the ROS was reviewed and is negative. LAB Creatinine Date Value Ref Range Status 01/17/2024 0.76 0.73 - 1.22 mg/dL Final GLUCOSE UA (POCT) (mg/dL) Date Value 02/09/2024 Negative BILIRUBIN UA (POCT) (no units) Date Value 02/09/2024 Small (A) KETONE UA (POCT) (mg/dL) Date Value 02/09/2024 15 (A) SPECIFIC GRAVITY UA (POCT) (no units) Date Value 02/09/2024 >=1.030 HEMOGLOBIN/BLOOD UA (POCT) (no units) Date Value 02/09/2024 Negative PH UA (POCT) (no units) Date Value 02/09/2024 5.5 PROTEIN UA (POCT) (mg/dL) Date Value 02/09/2024 Negative UROBILINOGEN UA (POCT) (E.U./dL) Date Value 02/09/2024 1.0 NITRITE UA (POCT) (no units) Date Value 02/09/2024 Negative LEUKOCYTES UA (POCT) (no units) Date Value 02/09/2024 Negative COLOR UA (POCT) (no units) Date Value 02/09/2024 Yellow CLARITY UA (POCT) (no units) Date Value 02/09/2024 Clear ] MEDICATIONS semaglutide (OZEMPIC) 0.25 mg or 0.5 mg (2 mg/3 mL) pen Inject 0.5 mg subcutaneously one time a week. insulin lispro (HUMALOG KWIKPEN INSULIN) 100 unit/mL Inject 5 Units subcutaneously three times a day with meals. aspirin, enteric coated (ASPIRIN, ENTERIC COATED) 81 mg EC tablet Take 81 mg by mouth once daily. traZODone (DESYREL) 100 mg tablet Take 100 mg by mouth daily at bedtime. vqqhnb-fgmdxotb-ciytwyo (CREON 12) 12,000-38,000 -60,000 unit delayed release capsule Take 1 capsule by mouth with meals and at bedtime. ondansetron orally disintegrating (ZOFRAN ODT) 4 mg disintegrating tablet Take 1 tablet by mouth every 8 hours as needed. tamsulosin (FLOMAX) 0.4 mg Take 0.4 mg by mouth once daily. rosuvastatin (CRESTOR) 40 mg tablet Take 40 mg by mouth once daily. metFORMIN ER (GLUMETZA) 1,000 mg 24 hr tablet Take 1,000 mg by mouth two times a day. sertraline (ZOLOFT) 50 mg tablet Take 50 mg by mouth once daily. montelukast (SINGULAIR) 10 mg tablet Take 10 mg by mouth daily at bedtime. LORATADINE ORAL Take 10 mg by mouth once daily. LANTUS SOLOSTAR U-100 INSULIN 100 unit/mL (3 mL) Inject 25 Units subcutaneously two times a day. levoFLOXacin (LEVAQUIN) 750 mg tablet One po daily for 3 days,first dose 2 hours prior procedure (Patient not taking: Reported on 02/23/2024) thiamine (VITAMIN B1) 100 mg tablet Take 100 mg by mouth once daily. (Patient not taking: Reported on 01/16/2024) 0 HISTORIES PAST MEDICAL HISTORY No date: Alcohol abuse No date: Diabetes mellitus (HCC) No date: Hx of chronic pancreatitis No date: Hyperlipemia No date: TIA (transient ischemic attack) PAST SURGICAL HISTORY No date: ABDOMINAL SURGERY HX History reviewed. No pertinent family history. SOCIAL HISTORY Social History Tobacco Use Smoking status: Every Day Current packs/day: 1.00 Average packs/day: 1 pack/day for 20.0 years (20.0 ttl pk-yrs) Types: Cigarettes Smokeless tobacco: Former Types: Snuff Tobacco comments: As per pt "I smoke 12-15 smokes a day, but when I drink I know its way more." Vaping Use Vaping status: Never Used Substance Use Topics Alcohol use: Yes Comment: 1 pint liquor per week Drug use: Never There were no vitals taken for this visit. Physical Exam Constitutional: Appearance: Normal appearance. HENT: Head: Normocephalic. Nose: Nose normal. Pulmonary: Effort: Pulmonary effort is normal. Neurological: Mental Status: He is alert. Psychiatric: Mood and Affect: Mood normal. ASSESSMENT AND PLAN: No problem-specific Assessment AND Plan notes found for this encounter. ASSESSMENT/PLAN: 1. Prostate nodule - ICD9: 600.10, ICD10: N40.2 (primary diagnosis) 2. Prostate cancer (HCC) - ICD9: 185, ICD10: C61 [place] score 6 affecting the mid right lobe For active surveillance Only 1 core was positive with a Enoch score 6, 7% of the core was positive with cancer Postvoid residual urine is only 1 mL Jewel Fuentes MD This note was partially created using voice recognition software and is inherently subject to errors including those of syntax (more content not included)... [facility] EGD Study observation Elisha romeo 02-15-2024 [facility] Gastrointestinal Endoscopy Patient Name: Kyle Mcdaniel Procedure Date: 02/15/2024 9:43 AM Date of : 1960 Admit Type: Outpatient Room: [place] [address] Gender: Male Note Status: Finalized Attending MD: Ethan Diallo MD, [id number] Procedure: Upper EUS Indications: Suspected mass in pancreas on MRCP Providers: Ethan Diallo MD Patient Profile: This is a 63 year old male. Refer to note in patient chart for documentation of history and physical. Referring Physician: Gia Calloway MD (Referring MD) Medicines: Monitored Anesthesia Care Complications: No immediate complications. Procedure: Pre-Anesthesia Assessment: - Prior to the procedure, a History and Physical was performed, and patient medications and allergies were reviewed. The patient's tolerance of previous anesthesia was also reviewed. The risks and benefits of the procedure and the sedation options and risks were discussed with the patient. All questions were answered, and informed consent was obtained. Prior Anticoagulants: The patient has taken no anticoagulant or antiplatelet agents. ASA Grade Assessment: III - A patient with severe systemic disease. After reviewing the risks and benefits, the patient was deemed in satisfactory condition to undergo the procedure. After obtaining informed consent, the endoscope was passed under direct vision. Throughout the procedure, the patient's blood pressure, pulse, and oxygen saturations were monitored continuously. The Endoscope was introduced through the mouth, and advanced to the second part of duodenum. I was present and participated during the entire procedure, including non-calvillo portions, and during the administration and monitoring of Moderate Sedation. The Endosonoscope was introduced through the and advanced to the. I was present and participated during the entire procedure, including non-calvillo portions, and during the administration and monitoring of Moderate Sedation. After obtaining informed consent, the endoscope was passed under direct vision. Throughout the procedure, the patient's blood pressure, pulse, and oxygen saturations were monitored continuously.The upper GI endoscopy was accomplished without difficulty. The patient tolerated the procedure well. Moderate Sedation: Exam was performed under monitored anesthesia care (MAC) Findings: ENDOSCOPIC FINDING: : The examined esophagus was normal. The entire examined stomach was normal. The examined duodenum was normal. ENDOSONOGRAPHIC FINDING: : One stent was visualized endosonographically in the common bile duct. Extension of the stent was noted in the common bile duct. An irregular lesion was identified in the pancreatic head. The lesion was hypoechoic, heterogenous and calcified. The lesion measured 22 mm by 20 mm in maximal cross-sectional diameter. The remainder of the pancreas was examined. The endosonographic appearance of parenchyma and features of chronic pancreaititis in rest of head and uncinate with hyperechogenicity, hyperechoec starnds and calcifications and severe parenchymal atrophy of body and tail region. Fine needle biopsy was performed. Color Doppler imaging was utilized prior to needle puncture to confirm a lack of significant vascular structures within the needle path. Three passes were made with the 22 gauge PoachableCore biopsy needle using a transduodenal approach. A visible core of tissue was obtained. Preliminary cytologic examination and touch preps were performed. Cytology was preliminarily non-diagnostic. Verification of patient identification for the specimen was done. Estimated blood loss was minimal. Estimated Blood Loss: Estimated blood loss: none. Impression: - Normal esophagus. - Normal s (more content not included)... PROVATION [facility] Radiology Study observation (narrative) [facility] GLUCOSE, BLOOD (POC)on 02-14 Glucose [Mass/Vol] 194 mg/dL Abnormal 74 - 99 mg/dL [facility] Comment on above: Glu2: Critical Notif ied Location:[facility], [address] [place] [address], [address] The Accu-Chek Inform II glucose meter has not been approved for testing on patients receiving intensive medical intervention or therapy and results from this point of care glucose test should not be used for patient management decisions in these cases. Inaccurate results may also occur from other interfering factors, such as N-acetylcysteine (blood concentrations of greater than 5mg/dL), galactose, extremes of hematocrit (<10 or >65), or high doses of ascorbic acid (vitamin C) greater than 3mg/dL. Consider alternate testing mechanisms (e.g. core lab, blood gas instrument) in the above situations. Interpretation and review of laboratory results Abnormal [facility] CNOVon 02-09-2024 CNOV Office Visit (URCANT ) KYLE MCDANIEL ([id number]) 1960 M Date Time Provider Department 02/09/24 8:20 AM JEWEL FUENTES [facility]RCANT During your visit today, we recorded the following information about you: Blood pressure Weight Height 134/91 97.5 kg 1.854 m Evelyn Amin OCCA 02/09/2024 9:31 AM Signed Workers Compensation Analyst offered:Patient accepts, visit chaperoned by [place] Sandy Bechara George, MD 02/09/2024 10:45 AM Signed Ultrasound-guided prostate needle biopsy, prostate nerve block Kyle Mcdaniel is a 63 year old male who presents with elevated PSA for ultrasound-guided prostate needle biopsy, prostate nerve block. PRE-OP/PRE-PROCEDURE DIAGNOSIS: Elevated PSA POST-OP/POST-PROCEDURE DIAGNOSIS: Same SURGERY/PROCEDURE(S): Ultrasound-guided prostate needle biopsy and prostate nerve block Pt ID verified with patient: Yes Procedure verified with patient: Yes Procedure confirmed with physician and product support representative: Yes UNIVERSAL PROTOCOL / SAFETY CHECKLIST Procedure to be Performed: Ultrasound-guided prostate needle biopsy and prostate nerve block Sign In: A Moment of CARE was completed. Personnel directly involved with the procedure wore the appropriate PPE (Personal Protective Equipment). Patient/Surrogate Stated/Verified: PATIENT VERIFIED(optional for EMERGENT procedures): Patient name, Date of , Relevant allergies, and The intended procedure Time Out Communication: Intended patient and procedure match the source documents. Consent documented and matches the intended procedure. Sign Out: SIGN OUT (optional for EMERGENT procedures): All specimen containers correctly labeled. Jewel Fuentes MD A urinalysis was performed revealing no evidence of infection. The benefits, risks, alternatives of the cystoscopy procedure and personnel were discussed with the patient. The verbal consent was obtained and the patient agrees to proceed. Procedure: Patient was placed in the right side up position and ultrasound probe was placed in the rectum, ultrasound probe was smeared with Betadine to cut down the risk of infection Prostate volume was evaluated to be at 35 mL Length 36 mm height is 40 mm and width is 45 mm No evidence of hypoechoic lesions throughout the prostate and minimal calcifications were encountered Prostate nerve block was done by injecting 5 cc on each side with 1% Xylocaine at space between the base of the prostate and seminal vesicles Biopsies were obtained from the right lobe from right base right midportion and right apex lateral and medial Similar procedure was done on the left side All specimen was labeled properly and ultrasound probe was removed and there was minimal bleeding encountered Patient tolerated procedure well Patient was given standard post-procedure instructions, and was directed to complete the course of oral antibiotics and increase oral fluid intake as directed. Jewel Fuentes MD Electronically Signed: Jewel Fuentes MD February 09, 2024 9:59 AM This note was partially created using voice recognition software and is inherently subject to errors including those of syntax and sound-alike substitutions which may escape proofreading. In such instances, original meaning may be extrapolated by contextual derivation. Allergies As of Date: 02/09/2024 Noted Allergy Reaction AZITHROMYCIN 11/08/2022 4 - Hives ERYTHROMYCIN 01/04/2023 4 - Hives TYLENOL (ACETAMINOPHEN) 12/30/2023 4 - Hives Date Reviewed: 02/09/2024 Reviewed by: Evelyn Amin OCCA - Fully Assessed Reason for Visit: Prostate Biopsy [371] Primary Visit Diagnosis:Prostate nodule [N40.2] Order(s):SURGICAL PATHOLOGY [QTS3299] Order #: [id number]. #:[id number] [] lidocaine 10 mg/mL (1 %) 100 mg injection (XYLOCAINE)Disp: Rfl: [] gentamicin 40 mg/mL 160 mg injectionDisp: Rfl: UA DIP, URINE (POC) [[id number]] Order #: [id number]. #:[id number] Prescriptions as of 02/09/2024 - semaglutide (OZEMPIC) 0.25 mg or 0.5 mg (2 mg/3 mL) pen Inject 0.5 mg subcutaneously one time a week. - levoFLOXacin (LEVAQUIN) 750 mg tablet One po daily for 3 days,first dose 2 hours prior procedure - insulin lispro (HUMALOG KWIKPEN INSULIN) 100 unit/mL Inject 5 Units subcutaneously three times a day with meals. - aspirin, enteric coated (ASPIRIN, ENTERIC COATED) 81 mg EC tablet Take 81 mg by mouth once daily. - traZODone (DESYREL) 100 mg tablet Take 100 mg by mouth daily at bedtime. - thiamine (VITAMIN B1) 100 mg tablet Take 100 mg by mouth once daily. - hxnsbt-paazbzmn-iqvivwv (CREON 12) 12,000-38,000 -60,000 unit delayed release capsule Take 1 capsule by mouth with meals and at bedtime. - ondansetron orally disintegrating (ZOFRAN ODT) 4 mg disintegrating tablet Take 1 tablet by mouth every 8 hours as needed. - tamsulosin (FLOMAX) 0. (more content not included)... [facility] SURGICAL PATHOLOGYon 024 ADDENDUM 1: [facility] Comment on above: Order Comment: Speci men Type: TISSUE SPECIMEN Ordering Facility: [facility] Address: [address] [place] [address] Result Comment: The AMACR and CK903 stains done on blocks A, C, H, I, K, and L were done as multiplex stains. Addendum electronically signed by Aide Lancaster MD on 02/20/2024 at 8:18 AM Performed By: #### S #### [facility] CLIA [id number] [address] [place], [place] [id number] [place] STATES OF [facility] CASE REPORT Normal [facility] Comment on above: Order Comment: Speci men Type: TISSUE SPECIMEN Ordering Facility: [facility] Address: [address] [place] [address] Result Comment: Surg [facility] Pathology Report Case: [id number] Authorizing Provider: Jewel Fuentes MD Collected: 02/09/2024 09:12 AM Ordering Location: Urology Received: 02/12/2024 07:37 AM Pathologist: Aide Lancaster MD Specimens: A) - Prostate, Left, Avilla, Biopsy, Left apex B) - Prostate, Left, Mid, Biopsy, Left mid C) - Prostate, Left, Base, Biopsy, Left base D) - Prostate, Left, Lateral Avilla , Biopsy, Left lateral apex E) - Prostate, Left, Lateral Mid, Biopsy, Left lateral mid F) - Prostate, Left, Lateral Base, Biopsy, Left lateral base G) - Prostate, Right, Avilla, Biopsy, Right apex H) - Prostate, Right, Mid, Biopsy, Right mid I) - Prostate, Right, Base, Biopsy, Right base J) - Prostate, Right, Lateral Avilla, Biopsy, Right lateral apex K) - Prostate, Right, Lateral Mid, Biopsy, Right lateral mid L) - Prostate, Right, Lateral Base, Biopsy, Right lateral base Performed By: #### S #### [facility] CLIA [id number] [address] [place], [place] [id number] [facility] CLINICAL HISTORY Prostate nodule Normal [facility] Comment on above: Order Comment: Speci men Type: TISSUE SPECIMEN Ordering Facility: [facility] Address: [address] [place] [address] Performed By: #### S #### [facility] CLIA [id number] [address] [place] [address] [facility] [place] DIAGNOSIS COMMENT Normal [facility] Comment on above: Order Comment: Speci men Type: TISSUE SPECIMEN Ordering Facility: [facility] Address: [address] [place] [address] Result Comment: A, C , H, I. Immunohistochemical stains performed and interpreted at [facility] indicate reactivity for AMACR without loss of CK903; this supports a diagnosis of prostatic intraepithelial neoplasia. K. Immunohistochemical stains performed and interpreted at [facility] indicate reactivity for AMACR and loss of CK903; this supports a diagnosis of prostatic adenocarcinoma. L. Immunohistochemical stains performed and interpreted at [facility] are negative for AMACR and show intact CK903 staining; this supports benign prostatic tissue. Part K was reviewed in consultation with Dr. Amarilys Garcia who concurs with the above diagnosis. Laboratory Developed Test (LDT) Disclaimer: Performance characteristics of immunohistochemical, immunofluorescent and chromogenic in-situ hybridization tests have been determined by the performing laboratory within [facility]???s [facility] Pathology and Laboratory Medicine Department ([facility], [facility], [facility], [facility], [facility], [facility], or [facility]) in a manner consistent with CLIA requirements. One or more of these tests have not been cleared or approved by the FDA. [facility] is regulated under CLIA as qualified to perform high-complexity testing. These tests are used for clinical purposes. They should not be regarded as investigational or for research. Positive and negative controls stain appropriately. Performed By: #### S #### [facility] CLIA [id number] [address] [place] [address] [facility] [place] FINAL DIAGNOSIS Normal [facility] Comment on above: Order Comment: Speci men Type: TISSUE SPECIMEN Ordering Facility: [facility] Address: [address] [place] [address] Result Comment: A. P rostate, left apex, biopsy: -High grade prostatic intraepithelial neoplasia (PIN), see comment. B. Prostate, left mid, biopsy: -Benign prostatic tissue. C. Prostate, left base, biopsy: -Focal high grade prostatic intraepithelial neoplasia (PIN), see comment. D. Prostate, left lateral apex, biopsy: -Benign prostatic tissue. E. Prostate, left lateral mid, biopsy: -Benign prostatic tissue. F. Prostate, left lateral base, biopsy: -Benign prostatic tissue. G. Prostate, right apex, biopsy: -Benign prostatic tissue. H. Prostate, right mid, biopsy: -High grade prostatic intraepithelial neoplasia (PIN), see comment. I. Prostate, right base, biopsy: -High grade prostatic intraepithelial neoplasia (PIN), see comment. J. Prostate, right lateral apex, biopsy: -Benign prostatic tissue. K. Prostate, right lateral mid, biopsy: -Prostatic adenocarcinoma, Enoch score 3+3 = 6 (grade group 1), involving 1 core (1 mm, 7%), see comment. L. Prostate, right lateral base, biopsy: -Benign prostatic tissue, see comment. Addendum electronically signed by Aide Lancaster MD on 02/22/2024 at 11:32 AM Performed By: #### S #### [facility] CLIA [id number] [address] [place] [address] FINAL PERFORMING LAB Normal [facility] Comment on above: Order Comment: Speci men Type: TISSUE SPECIMEN Ordering Facility: [facility] Address: [address] [place] [address] Result Comment: Diag nostic interpretation performed at [facility], [address] [place] [address] CLIA# [id number] Bill Adjuster: Amarilys Garcia M.D. Performed By: #### S #### [facility] CLIA [id number] [address] [place] [address] GROSS DESCRIPTION Normal [facility] Comment on above: Order Comment: Speci men Type: TISSUE SPECIMEN Ordering Facility: [facility] Address: [address] [place] [address] Result Comment: A. P rostate, Left, Avilla, Biopsy Received in formalin labeled with the patients name and "left apex" are three thin white tissue cores and/or fragments of soft tissue, ranging from 0.3-1.5 cm in length and measuring 0.1 cm in diameter. Submitted in toto in 1 cassette(s). B. Prostate, Left, Mid, Biopsy Received in formalin labeled with the patients name and "left mid" are two thin white tissue cores and/or fragments of soft tissue, 1.7 and 2.0 cm in length and measuring 0.1 cm in diameter. Submitted in toto in 1 cassette(s). C. Prostate, Left, Base, Biopsy Received in formalin labeled with the patients name and "left base" are two thin white tissue cores and/or fragments of soft tissue, 1.5 and 1.6 cm in length and measuring 0.1 cm in diameter. Submitted in toto in 1 cassette(s). D. Prostate, Left, Lateral Avilla , Biopsy Received in formalin labeled with the patients name and "left lateral apex" are two thin white tissue cores and/or fragments of soft tissue, ranging from 0.3-1.5 cm in length and measuring 0.1 cm in diameter. Submitted in toto in 1 cassette(s). E. Prostate, Left, Lateral Mid, Biopsy Received in formalin labeled with the patients name and "left lateral mid" is a 1.7 x 0.1 x 0.1 cm white soft tissue core which is submitted in toto in 1 cassette. F. Prostate, Left, Lateral Base, Biopsy Received in formalin labeled with the patients name and "left lateral base" is a 1.3 x 0.1 x 0.1 cm white soft tissue core which is submitted in toto in 1 cassette. G. Prostate, Right, Avilla, Biopsy Received in formalin labeled with the patients name and "right apex" is a 1.8 x 0.1 x 0.1 cm white soft tissue core which is submitted in toto in 1 cassette. H. Prostate, Right, Mid, Biopsy Received in formalin labeled with the patients name and "right mid" are two thin white tissue cores and/or fragments of soft tissue, averaging 1.3 cm in length and measuring 0.1 cm in diameter. Submitted in toto in 1 cassette(s). I. Prostate, Right, Base, Biopsy Received in formalin labeled with the patients name and "right base" are two thin white tissue cores and/or fragments of soft tissue, averaging 1.6 cm in length and measuring 0.1 cm in diameter. Submitted in toto in 1 cassette(s). J. Prostate, Right, Lateral Avilla, Biopsy Received in formalin labeled with the patients name and "right lateral apex" is a 1.7 x 0.1 x 0.1 cm white soft tissue core which is submitted in toto in 1 cassette. K. Prostate, Right, Lateral Mid, Biopsy Received in formalin labeled with the patients name and "right lateral mid" is a 1.4 x 0.1 x 0.1 cm white soft tissue core which is submitted in toto in 1 cassette. L. Prostate, Right, Lateral Base, Biopsy Received in formalin labeled with the patients name and "right lateral base" is a 1.5 x 0.1 x 0.1 cm white soft tissue core which is submitted in toto in 1 cassette. Gross examination performed at [facility], [address] [place] [address] CLIA#[id number] A February 12, 2024 10:35 AM Performed By: #### S #### [facility] CLIA [id number] [address] [place], [place] [id number] [place] UA DIP, URINE (POC)on 2023 BILIRUBIN UA (POCT) Small Abnormal Negative [facility] CLARITY UA (POCT) Clear [facility] COLOR UA (POCT) Yellow [facility] GLUCOSE UA (POCT) Negative Negative mg/dL [facility] Hemoglobin Ql (U) Negative Negative [facility] Interpretation and review of laboratory results Abnormal [facility] KETONE UA (POCT) 15 mg/dL Abnormal Negative [facility] LEUKOCYTES UA (POCT) Negative Negative [facility] NITRITE UA (POCT) Negative Negative [facility] PH UA (POCT) 5.5 4.5 - 8.0 [facility] Protein Ql (U) Negative Negative mg/dL [facility] SPECIFIC GRAVITY UA (POCT) >=1.030 1.005 - 1.030 [facility] UROBILINOGEN UA (POCT) 1.0 Mona l E.U./dL [facility] Location:[facility] [address] [place] [address], [id number] [facility] POINT OF [facility] CNCOon 01-12-2024 CNCO Letter Text Normal [facility] CNOVon 01-12-2024 CNOV Office Visit (URCANT ) KYLE MCDANIEL ([id number]) 1960 M Date Time Provider Department 01/12/24 8:20 AM JEWEL FUENTES URCANT During your visit today, we recorded the following information about you: Blood pressure 144/85 Jewel Fuentes MD 01/13/2024 10:16 AM Signed CYSTOSCOPY PROCEDURE NOTE : Kyle Mcdaniel is a 63 year old male who presents with LUTS for CYSTOSCOPY . PRE-OP/PRE-PROCEDURE DIAGNOSIS: LUTS,Thick bladder wall POST-OP/POST-PROCEDURE DIAGNOSIS: enlarged lateral lobes of the prostate SURGERY/PROCEDURE(S): cystoscopy Pt ID verified with patient: Yes Procedure verified with patient: Yes Procedure confirmed with physician and product support representative: Yes UNIVERSAL PROTOCOL / SAFETY CHECKLIST Procedure to be Performed: cystoscopy Sign In: A Moment of CARE was completed. Personnel directly involved with the procedure wore the appropriate PPE (Personal Protective Equipment). Patient/Surrogate Stated/Verified: PATIENT VERIFIED(optional for EMERGENT procedures): Patient name, Date of , Relevant allergies, and The intended procedure Time Out Communication: Intended patient and procedure match the source documents. Consent documented and matches the intended procedure. Sign Out: SIGN OUT (optional for EMERGENT procedures): No specimen collected. Jewel Fuentes MD A urinalysis was performed revealing no evidence of infection. The benefits, risks, alternatives of the cystoscopy procedure and personnel were discussed with the patient. The verbal consent was obtained and the patient agrees to proceed. Procedure: The patient was placed on the procedure table in the supine position and prepped and draped in the usual sterile fashion. 2% Lidocaine Jelly was placed per urethra as an anesthetic in the standard fashion. Once adequate local anesthesia was achieved, the tip of the flexible cystoscope was carefully placed into the urethra under direct visual guidance. The scope was negotiated through the pendulous urethra to the level of the bulbar urethra with no evidence of stricture. The verumontanum came into view and the scope was negotiated through the prostatic urethra which showed evidence of bi lobar occlusive disease. The bladder was entered and careful ortez endoscopy was carried out. The posterior, superior and lateral olsen and dome of the bladder were all well visualized and the scope was retroflexed upon itself. The findings were consistent with no evidence of bladder mucosal pathology. The findings were consistent with smooth, not trabeculated bladder. At the conclusion of the procedure, the flexible cystoscope was removed atraumatically. The patient tolerated the procedure without complications. Patient was given standard post-procedure instructions, and was directed to complete the course of oral antibiotics and increase oral fluid intake as directed. IMPRESSION: Enlarged lateral lobes of prostate with frequency,nocturia and weak urinary stream PLAN: Pt is on flomax,Rezum offered and he is agreable Jewel Fuentes MD Electronically Signed: Jewel Fuentes MD January 12, 2024 8:34 AM This note was partially created using voice recognition software and is inherently subject to errors including those of syntax and sound-alike substitutions which may escape proofreading. In such instances, original meaning may be extrapolated by contextual derivation. Jewel Fuentes MD 01/13/2024 10:16 AM Signed Procedure performed: Transrectal ultrasound of the prostate Indication for procedure: History of lower urinary tract symptoms with history of weak stream despite Flomax Description of procedure: Ultrasound probe was placed in the rectum Prostate volume was noted to be at 32 mL, length 33 mm height 45 mm and width 40 mm Is noted presence of a prostatic nodule right lobe measuring 1.7 x 1.2 cm in the transition zone No evidence of calcifications Prostate needle biopsy recommended and patient is agreeable Allergies As of Date: 01/12/2024 Noted Allergy Reaction AZITHROMYCIN 11/08/2022 4 - Hives ERYTHROMYCIN 01/04/2023 4 - Hives TYLENOL (ACETAMINOPHEN) 12/30/2023 4 - Hives Date Reviewed: 01/12/2024 Reviewed by: Skylar Duenas MA - Fully Assessed Reason for Visit: Cystoscopy-1 [303] Primary Visit Diagnosis:Benign prostatic hyperplasia, unspecified whether lower urinary tract symptoms present [N40.0] Order(s):[] lidocaine urojet 2 % 11 mL topical gel (GLYDO)Disp: Rfl: UA DIP, URINE (POC) [[id number]] Order #: [id number]. #:[id number] levoFLOXacin (LEVAQUIN) 750 mg tabletOne po daily for 3 days,first dose 2 hours prior procedureDisp: 3 tabletRfl: 0 Prescriptions as of 01/13/2024 - levoFLOXacin (LEVAQUIN) 750 mg tablet One po daily for 3 days,first dose 2 hours prior procedure - senna-docusate (SENNA-S) (more content not included)... Normal [facility] UA DIP, URINE (POC)on 2023 BILIRUBIN UA (POCT) Small Abnormal Negative [facility] CLARITY UA (POCT) Clear [facility] COLOR UA (POCT) Yellow [facility] GLUCOSE UA (POCT) Negative Negative mg/dL [facility] Hemoglobin Ql (U) Negative Negative [facility] Interpretation and review of laboratory results Abnormal [facility] KETONE UA (POCT) Trace Negative mg/dL [facility] LEUKOCYTES UA (POCT) Negative Negative [facility] NITRITE UA (POCT) Negative Negative [facility] PH UA (POCT) 5.5 4.5 - 8.0 [facility] Protein Ql (U) Negative Negative mg/dL [facility] SPECIFIC GRAVITY UA (POCT) >=1.030 1.005 - 1.030 [facility] UROBILINOGEN UA (POCT) 1.0 Mona l E.U./dL [facility] Location:[facility] [place], [address] [place] [address], [id number] [place] [address] POINT OF CARE [facility] CNCOon 01-01-2024 CNCO Letter Text Normal [facility] .GFRon 12-21-2023 GFR >60 Normal [facility] ([place]) Comment on above: Result Comment: GFR Population mean for , Non- Americans Ages 20-29 = 116 mL/min/1.73 sq.m. Ages 30-39 = 107 mL/min/1.73 sq.m. Ages 40-49 = 99 mL/min/1.73 sq.m. Ages 50-59 = 93 mL/min/1.73 sq.m. Ages 60-69 = 85 mL/min/1.73 sq.m. Ages 70+ = 75 mL/min/1.73 sq.m. Chronic Kidney Disease: Less than 60 mL/min/1.73 square meters End Stage Renal Disease: Less than 15 mL/min/1.73 square meters Performed By: #### Loretta TORRES, BMP ####[address] [address] GFR Non- >60 Normal [facility] ([place]) Comment on above: Result Comment: GFR Population mean for , Non- Americans Ages 20-29 = 116 mL/min/1.73 sq.m. Ages 30-39 = 107 mL/min/1.73 sq.m. Ages 40-49 = 99 mL/min/1.73 sq.m. Ages 50-59 = 93 mL/min/1.73 sq.m. Ages 60-69 = 85 mL/min/1.73 sq.m. Ages 70+ = 75 mL/min/1.73 sq.m. Chronic Kidney Disease: Less than 60 mL/min/1.73 square meters End Stage Renal Disease: Less than 15 mL/min/1.73 square meters Performed By: #### Loretta TORRES, BMP ####[place] [address] BMPon 12-21-2023 BUN/Creatinine Ratio 17.8 ratio Normal 10.0-22.0 [facility] ([place]) Comment on above: Performed By: #### Loretta TORRES, BMP ####[address] [address] Calcium [Mass/Vol] 8.9 mg/dL Normal 8.7-10.4 [facility] ([place]) Comment on above: Performed By: #### Loretta TORRES, BMP ####[address] [address] Chloride [Moles/Vol] 107 mmol/L Normal 98-110 [facility] ([place]) Comment on above: Performed By: #### Loretta TORRES, BMP ####[address] [address] CO2 [Moles/Vol] 24 mmol/L Normal 22-32 [facility] ([place]) Comment on above: Performed By: #### Loretta TORRES, BMP ####[place] [address] Creatinine [Mass/Vol] 0.73 mg/dL Normal 0.60-1.40 [facility] ([place]) Comment on above: Performed By: #### Loretta TORRES, BMP ####[place] [address] Electrolyte Balance 9.0 mEq/L Normal 4.0-15.0 [facility] ([place]) Comment on above: Performed By: #### Loretta TORRES, BMP ####[place] [address] Glucose [Mass/Vol] 274 mg/dL High 82-115 [facility] ([place]) Comment on above: Performed By: #### Loretta TORRES, BMP ####[place] [address] Potassium [Moles/Vol] 4.5 mmol/L Normal 3.5-5.0 [facility] ([place] Comment on above: Performed By: #### Loretta TORRES, BMP ####[place] [address] Sodium [Moles/Vol] 140 mmol/L Normal 136-145 [facility] ([place]) Comment on above: Performed By: #### Loretta TORRES, BMP ####[place] [address] Urea nitrogen [Mass/Vol] 13.0 mg/dL Normal 8.0-22.0 [facility] ([place]) Comment on above: Performed By: #### Loretta TORRSE, BMP ####[place] [address] LABORATORYOrdered By: Navi Caruso on 12-21-2023 Blood Glucose Testing Reason Routine (12/21/23 12:18 PM) [facility] Glucose [Mass/Vol] 173 mg/dL High 82 - 115 mg/dL [facility] Blood Glucose Testing Reason Routine (12/21/23 8:13 AM) [facility] Glucose [Mass/Vol] 194 mg/dL High 82 - 115 mg/dL [facility] LABORATORYOrdered By: SYSTEM SYSTEM on 12-21-2023 Calcium [Mass/Vol] 8.9 mg/dL Normal 8.7 - 10. 4 mg/dL ADM SS Chloride [Moles/Vol] 107 mmol/L Normal 98 - 11 0 mEq/L AH ADM SS CO2 [Moles/Vol] 24 mmol/L Normal 22 - 32 mEq/L AH ADM SS Creatinine [Mass/Vol] 0.73 mg/dL Normal 0.60 - 1.40 mg/dL ADM SS Electrolyte Balance 9.0 mEq/L Normal 4.0 - 15 .0 mEq/L ADM SS GFR/1.73 sq M.predicted among blacks MDRD (S/P/Bld) [Vol rate/Area] ml/min/1.73sqm Invalid Interpretation Code [employer] S Comment on above: Interpretive Data: GFR Population mean for , Non- Americans Ages 20-29 = 116 mL/min/1.73 sq.m. Ages 30-39 = 107 mL/min/1.73 sq.m. Ages 40-49 = 99 mL/min/1.73 sq.m. Ages 50-59 = 93 mL/min/1.73 sq.m. Ages 60-69 = 85 mL/min/1.73 sq.m. Ages 70+ = 75 mL/min/1.73 sq.m. Chronic Kidney Disease: Less than 60 mL/min/1.73 square meters End Stage Renal Disease: Less than 15 mL/min/1.73 square meters GFR/1.73 sq M.predicted among non-blacks MDRD (S/P/Bld) [Vol rate/Area] ml/min/1.73sqm Invalid Interpretation Code [employer] S Comment on above: Interpretive Data: GFR Population mean for , Non- Americans Ages 20-29 = 116 mL/min/1.73 sq.m. Ages 30-39 = 107 mL/min/1.73 sq.m. Ages 40-49 = 99 mL/min/1.73 sq.m. Ages 50-59 = 93 mL/min/1.73 sq.m. Ages 60-69 = 85 mL/min/1.73 sq.m. Ages 70+ = 75 mL/min/1.73 sq.m. Chronic Kidney Disease: Less than 60 mL/min/1.73 square meters End Stage Renal Disease: Less than 15 mL/min/1.73 square meters Glucose [Mass/Vol] 274 mg/dL High 82 - 115 mg/dL ADM SS Potassium [Moles/Vol] 4.5 mmol/L Normal 3.5 - 5.0 mEq/L AH ADM SS Sodium [Moles/Vol] 140 mmol/L Normal 136 - 145 mEq/L AH ADM SS Urea nitrogen [Mass/Vol] 13.0 mg/dL Normal 8.0 - 22.0 mg/dL ADM SS Urea nitrogen/Creatinine [Mass ratio] 17.8 ratio Normal 10.0 - 22.0 ratio AH ADM SS .Auto Diffon 12-20-2023 Basophil, Absolute 0.1 10 3/mcL Normal 0.0-0.3 [facility] ([place] Comment on above: Performed By: #### C BC, GFR, ADIFF, CMP, ANEU ####[address] [address] Basophils/100 WBC (Bld) 1.7 % Normal 0.0-2.5 [facility] ([place]) Comment on above: Performed By: #### C BC, GFR, ADIFF, CMP, ANEU ####[address] [address] Eosinophil, Absolute 0.3 10 3/mcL Normal 0.0-0.7 [facility] ([place]) Comment on above: Performed By: #### C BC, GFR, ADIFF, CMP, ANEU ####[address] [address] Eosinophils/100 WBC (Bld) 7.3 % High 0.0-6.0 [facility] ([place] Comment on above: Performed By: #### C BC, GFR, ADIFF, CMP, ANEU ####[address] [address] Lymphocyte, Absolute 1.4 10 3/mcL Normal 0.9-4.3 [facility] ([place] Comment on above: Performed By: #### C BC, GFR, ADIFF, CMP, ANEU ####[address] [address] Lymphocytes/100 WBC (Bld) 33.7 % Normal 20.0-40.0 [facility] ([place] Comment on above: Performed By: #### C BC, GFR, ADIFF, CMP, ANEU ####[address] [address] Monocyte, Absolute 0.4 10 3/mcL Normal 0.1-1.4 [facility] ([place]) Comment on above: Performed By: #### C BC, GFR, ADIFF, CMP, ANEU ####[address] [address] Monocytes/100 WBC (Bld) 8.7 % Normal 2.0-13.0 [facility] ([place] Comment on above: Performed By: #### C BC, GFR, ADIFF, CMP, ANEU ####[address] [address] Neutrophils/100 WBC (Bld) 48.6 % Low 50.0-75.0 [facility] ([place] Comment on above: Performed By: #### C BC, GFR, ADIFF, CMP, ANEU ####[address] [address] .GFRon 12-20-2023 GFR >60 Normal [facility] ([place] Comment on above: Result Comment: GFR Population mean for , Non- Americans Ages 20-29 = 116 mL/min/1.73 sq.m. Ages 30-39 = 107 mL/min/1.73 sq.m. Ages 40-49 = 99 mL/min/1.73 sq.m. Ages 50-59 = 93 mL/min/1.73 sq.m. Ages 60-69 = 85 mL/min/1.73 sq.m. Ages 70+ = 75 mL/min/1.73 sq.m. Chronic Kidney Disease: Less than 60 mL/min/1.73 square meters End Stage Renal Disease: Less than 15 mL/min/1.73 square meters Performed By: #### C BC, GFR, ADIFF, CMP, ANEU ####[address] [address] GFR Non- >60 Normal [facility] ([place] Comment on above: Result Comment: GFR Population mean for , Non- Americans Ages 20-29 = 116 mL/min/1.73 sq.m. Ages 30-39 = 107 mL/min/1.73 sq.m. Ages 40-49 = 99 mL/min/1.73 sq.m. Ages 50-59 = 93 mL/min/1.73 sq.m. Ages 60-69 = 85 mL/min/1.73 sq.m. Ages 70+ = 75 mL/min/1.73 sq.m. Chronic Kidney Disease: Less than 60 mL/min/1.73 square meters End Stage Renal Disease: Less than 15 mL/min/1.73 square meters Performed By: #### C BC, GFR, ADIFF, CMP, ANEU ####[place] [address] .NEUABSon 12-20-2023 Neutrophil, Absolute 2.0 10 3/mcL Low 2.3-8.1 [facility] ([place] Comment on above: Performed By: #### C BC, GFR, ADIFF, CMP, ANEU ####[place] [address] CBCon 12-20-2023 Erythrocyte distribution width (RBC) [Ratio] 17.0 % High 11.5-15.5 [facility] ([place] Comment on above: Performed By: #### C BC, GFR, ADIFF, CMP, ANEU ####[place] [address] Hematocrit (Bld) [Volume fraction] 40.0 % Normal 40.0-52.0 [facility] ([place] Comment on above: Performed By: #### C BC, GFR, ADIFF, CMP, ANEU ####[place] [address] Hgb 13.4 G/dL Normal 13.0-17.5 [facility] ([place] Comment on above: Performed By: #### C BC, GFR, ADIFF, CMP, ANEU ####[place] [address] MCH (RBC) [Entitic mass] 28.9 pg Normal 27.0-33.0 [facility] ([place] Comment on above: Performed By: #### C BC, GFR, ADIFF, CMP, ANEU ####[place] [address] MCHC 33.5 G/dL Normal 32.0-36.0 [facility] ([place] Comment on above: Performed By: #### C BC, GFR, ADIFF, CMP, ANEU ####[place] [address] MCV (RBC) [Entitic vol] 86.5 fL Normal 81.0-100.0 [facility] ([place] Comment on above: Performed By: #### C BC, GFR, ADIFF, CMP, ANEU ####[place] [address] Platelet 145 10 3/mcL Low 150-450 [facility] ([place] Comment on above: Performed By: #### C BC, GFR, ADIFF, CMP, ANEU ####[place] [address] Platelet mean volume (Bld) [Entitic vol] 8.9 fL Normal 6.4-10.5 [facility] ([place] Comment on above: Performed By: #### C BC, GFR, ADIFF, CMP, ANEU ####[place] [address] RBC 4.62 10 6/mcL Normal 4.50-6.00 [facility] ([place] Comment on above: Performed By: #### C BC, GFR, ADIFF, CMP, ANEU ####[place] [address] WBC 4.1 10 3/mcL Low 4.5-10.8 [facility] ([place] Comment on above: Performed By: #### C BC, GFR, ADIFF, CMP, ANEU ####[place] [address] CMPon 12-20-2023 Albumin Level 3.3 G/dL Normal 3.2-4.8 [facility] ([place] Comment on above: Performed By: #### C BC, GFR, ADIFF, CMP, ANEU ####[place] [address] Albumin/Globulin [Mass ratio] 1.2 {ratio} Normal 0.9-1.6 [facility] ([place] Comment on above: Performed By: #### C BC, GFR, ADIFF, CMP, ANEU ####[place] [address] ALP [Catalytic activity/Vol] 67 U/L Normal 38-126 [facility] ([place] Comment on above: Performed By: #### C BC, GFR, ADIFF, CMP, ANEU ####[place] [address] ALT [Catalytic activity/Vol] 18 U/L Normal 12-55 [facility] ([place] Comment on above: Performed By: #### C BC, GFR, ADIFF, CMP, ANEU ####[place] [address] AST [Catalytic activity/Vol] 20 U/L Normal 8-34 [facility] ([place] Comment on above: Performed By: #### C BC, GFR, ADIFF, CMP, ANEU ####[place] [address] Bili Total 0.20 mg/dL Normal 0.20-1.20 [facility] ([place] Comment on above: Result Comment: Use of this assay is not recommended for patients undergoing treatment with eltrombopag due to the potential for falsely elevated results. Performed By: #### C BC, GFR, ADIFF, CMP, ANEU ####[place] [address] BUN/Creatinine Ratio 14.5 ratio Normal 10.0-22.0 [facility] ([place] Comment on above: Performed By: #### C BC, GFR, ADIFF, CMP, ANEU ####[address] [address] Calcium [Mass/Vol] 9.3 mg/dL Normal 8.7-10.4 [facility] ([place]) Comment on above: Performed By: #### C BC, GFR, ADIFF, CMP, ANEU ####[address] [address] Chloride [Moles/Vol] 107 mmol/L Normal 98-110 [facility] ([place]) Comment on above: Performed By: #### C BC, GFR, ADIFF, CMP, ANEU ####[place] [id number] CO2 [Moles/Vol] 29 mmol/L Normal 22-32 [facility] ([place]) Comment on above: Performed By: #### C BC, GFR, ADIFF, CMP, ANEU ####[address] [address] Creatinine [Mass/Vol] 0.69 mg/dL Normal 0.60-1.40 [facility] ([place]) Comment on above: Performed By: #### C BC, GFR, ADIFF, CMP, ANEU ####[place] [address] Electrolyte Balance 6.0 mEq/L Normal 4.0-15.0 [facility] ([place]) Comment on above: Performed By: #### C BC, GFR, ADIFF, CMP, ANEU ####[address] [address] Globulin 2.8 G/dL Normal 1.5-3.8 [facility] ([place] Comment on above: Performed By: #### C BC, GFR, ADIFF, CMP, ANEU ####[address] [address] Glucose [Mass/Vol] 201 mg/dL High 82-115 [facility] ([place]) Comment on above: Performed By: #### C BC, GFR, ADIFF, CMP, ANEU ####[place] [address] Potassium [Moles/Vol] 4.2 mmol/L Normal 3.5-5.0 [facility] ([place] Comment on above: Performed By: #### C BC, GFR, ADIFF, CMP, ANEU ####[place] [id number] [address] [place] [address] Sodium [Moles/Vol] 142 mmol/L Normal 136-145 [facility] ([place]) Comment on above: Performed By: #### C BC, GFR, ADIFF, CMP, ANEU ####[place] [id number] [address] [place] [address] Total Protein 6.1 G/dL Normal 5.7-8.2 [facility] ([place]) Comment on above: Result Comment: No te - New Reference Range in effect 20 Performed By: #### C BC, GFR, ADIFF, CMP, ANEU ####[place] [id number] [address] [place] [address] Urea nitrogen [Mass/Vol] 10.0 mg/dL Normal 8.0-22.0 [facility] ([place] Comment on above: Performed By: #### C BC, GFR, ADIFF, CMP, ANEU ####[address] [address] LABORATORYOrdered By: Angie Irvin on 12-20-2023 Blood Glucose Testing Reason Routine (12/20/23 9:27 PM) [facility] Glucose [Mass/Vol] 148 mg/dL High 82 - 115 mg/dL [facility] LABORATORYOrdered By: SYSTEM SYSTEM on 12-20-2023 Albumin BCP dye [Mass/Vol] 3.3 G/dL Normal 3.2 - 4.8 G/dL ADM SS Albumin/Globulin [Mass ratio] 1.2 {ratio} Normal 0.9 - 1.6 ratio ADM SS ALP [Catalytic activity/Vol] 67 U/L Normal 38 - 126 U/L ADM SS ALT No additional P-5'-P [Catalytic activity/Vol] 18 U/L Normal 12 - 55 U/L ADM SS AST [Catalytic activity/Vol] 20 U/L Normal 8 - 34 U/L ADM SS Basophils (Bld) [#/Vol] 0.1 103/mcL Normal 0.0 - 0.3 10^3/mcL AH Workflow SS Basophils/100 WBC (Bld) 1.7 % Normal 0.0 - 2.5 % Workflow SS Bilirubin [Mass/Vol] 0.20 mg/dL Normal 0.20 - 1.20 mg/dL ADM SS Comment on above: Interpretive Data: U se of this assay is not recommended for patients undergoing treatment with eltrombopag due to the potential for falsely elevated results. Calcium [Mass/Vol] 9.3 mg/dL Normal 8.7 - 10. 4 mg/dL ADM SS Chloride [Moles/Vol] 107 mmol/L Normal 98 - 11 0 mEq/L ADM SS CO2 [Moles/Vol] 29 mmol/L Normal 22 - 32 mEq/L ADM SS Creatinine [Mass/Vol] 0.69 mg/dL Normal 0.60 - 1.40 mg/dL ADM SS Electrolyte Balance 6.0 mEq/L Normal 4.0 - 15 .0 mEq/L ADM SS Eosinophils (Bld) [#/Vol] 0.3 103/mcL Normal 0.0 - 0.7 10^3/mcL Workflow SS Eosinophils/100 WBC (Bld) 7.3 % High 0.0 - 6.0 % Workflow SS Erythrocyte distribution width (RBC) [Ratio] 17.0 % High 11.5 - 15.5 % Workflow SS GFR/1.73 sq M.predicted among blacks MDRD (S/P/Bld) [Vol rate/Area] ml/min/1.73sqm Invalid Interpretation Code Chemistry S Comment on above: Interpretive Data: GFR Population mean for , Non- Americans Ages 20-29 = 116 mL/min/1.73 sq.m. Ages 30-39 = 107 mL/min/1.73 sq.m. Ages 40-49 = 99 mL/min/1.73 sq.m. Ages 50-59 = 93 mL/min/1.73 sq.m. Ages 60-69 = 85 mL/min/1.73 sq.m. Ages 70+ = 75 mL/min/1.73 sq.m. Chronic Kidney Disease: Less than 60 mL/min/1.73 square meters End Stage Renal Disease: Less than 15 mL/min/1.73 square meters GFR/1.73 sq M.predicted among non-blacks MDRD (S/P/Bld) [Vol rate/Area] ml/min/1.73sqm Invalid Interpretation Code Chemistry S Comment on above: Interpretive Data: GFR Population mean for , Non- Americans Ages 20-29 = 116 mL/min/1.73 sq.m. Ages 30-39 = 107 mL/min/1.73 sq.m. Ages 40-49 = 99 mL/min/1.73 sq.m. Ages 50-59 = 93 mL/min/1.73 sq.m. Ages 60-69 = 85 mL/min/1.73 sq.m. Ages 70+ = 75 mL/min/1.73 sq.m. Chronic Kidney Disease: Less than 60 mL/min/1.73 square meters End Stage Renal Disease: Less than 15 mL/min/1.73 square meters Globulin 2.8 G/dL Normal 1.5 - 3.8 G/dL AH ADM SS Glucose [Mass/Vol] 201 mg/dL High 82 - 115 mg/dL ADM SS Hematocrit (Bld) [Volume fraction] 40.0 % Normal 40.0 - 52.0 % AH Workflow SS Hemoglobin (Bld) [Mass/Vol] 13.4 G/dL Normal 13.0 - 17.5 G/dL AH Workflow SS Lymphocytes (Bld) [#/Vol] 1.4 103/mcL Normal 0.9 - 4.3 10^3/mcL AH Workflow SS Lymphocytes/100 WBC (Bld) 33.7 % Normal 20.0 - 40.0 % AH Workflow SS MCH (RBC) [Entitic mass] 28.9 pg Normal 27.0 - 33.0 pg AH Workflow SS MCHC 33.5 G/dL Normal 32.0 - 36.0 G/dL AH Workflow SS MCV (RBC) [Entitic vol] 86.5 fL Normal 81.0 - 100.0 fL AH Workflow SS Monocytes (Bld) [#/Vol] 0.4 103/mcL Normal 0.1 - 1.4 10^3/mcL AH Workflow SS Monocytes/100 WBC (Bld) 8.7 % Normal 2.0 - 13.0 % AH Workflow SS Neutrophils (Bld) [#/Vol] 2.0 103/mcL Low 2.3 - 8.1 10^3/mcL AH Workflow SS Neutrophils/100 WBC (Bld) 48.6 % Low 50.0 - 75.0 % AH Workflow SS Platelet mean volume (Bld) [Entitic vol] 8.9 fL Normal 6.4 - 10.5 fL AH Workflow SS Platelets (Bld) [#/Vol] 145 103/mcL Low 150 - 450 10^3/mcL AH Workflow SS Potassium [Moles/Vol] 4.2 mmol/L Normal 3.5 - 5.0 mEq/L AH ADM SS Protein [Mass/Vol] 6.1 G/dL Normal 5.7 - 8.2 G/dL AH ADM SS Comment on above: Interpretive Data: * *Note - New Reference Range in effect 20 RBC (Bld) [#/Vol] 4.62 106/mcL Normal 4.50 - 6.0 0 10^6/mcL AH Workflow SS Sodium [Moles/Vol] 142 mmol/L Normal 136 - 145 mEq/L ADM SS Urea nitrogen [Mass/Vol] 10.0 mg/dL Normal 8.0 - 22.0 mg/dL AH ADM SS Urea nitrogen/Creatinine [Mass ratio] 14.5 ratio Normal 10.0 - 22.0 ratio AH ADM SS WBC (Bld) [#/Vol] 4.1 103/mcL Low 4.5 - 10.8 10^3/mcL Workflow SS .Auto Diffon 12-19-2023 Basophil, Absolute 0.1 10 3/mcL Normal 0.0-0.3 [facility] ([place]) Comment on above: Performed By: #### T MARTIN #### [address] [address] Basophils/100 WBC (Bld) 2.2 % Normal 0.0-2.5 [facility] ([place]) Comment on above: Performed By: #### T MARTIN #### [address] [address] Eosinophil, Absolute 0.2 10 3/mcL Normal 0.0-0.7 [facility] ([place]) Comment on above: Performed By: #### T MARTIN #### [address] [address] Eosinophils/100 WBC (Bld) 4.8 % Normal 0.0-6.0 [facility] ([place]) Comment on above: Performed By: #### T SHIRA #### [facility] [address] [place] [address] Lymphocyte, Absolute 1.4 10 3/mcL Normal 0.9-4.3 [facility] ([place]) Comment on above: Performed By: #### T SHIRA #### [facility] [address] [place] [address] Lymphocytes/100 WBC (Bld) 26.5 % Normal 20.0-40.0 [facility] ([place]) Comment on above: Performed By: #### T SHIRA #### [address] [address] Monocyte, Absolute 0.3 10 3/mcL Normal 0.1-1.4 [facility] ([place]) Comment on above: Performed By: #### T SHIRA #### [address] [address] Monocytes/100 WBC (Bld) 6.6 % Normal 2.0-13.0 [facility] ([place]) Comment on above: Performed By: #### T SHIRA #### [address] [address] Neutrophils/100 WBC (Bld) 59.9 % Normal 50.0-75.0 [facility] ([place]) Comment on above: Performed By: #### T SHIRA #### [address] [address] .GFRon 12-19-2023 GFR Non- >60 Normal [facility] ([place]) Comment on above: Result Comment: GFR Population mean for , Non- Americans Ages 20-29 = 116 mL/min/1.73 sq.m. Ages 30-39 = 107 mL/min/1.73 sq.m. Ages 40-49 = 99 mL/min/1.73 sq.m. Ages 50-59 = 93 mL/min/1.73 sq.m. Ages 60-69 = 85 mL/min/1.73 sq.m. Ages 70+ = 75 mL/min/1.73 sq.m. Chronic Kidney Disease: Less than 60 mL/min/1.73 square meters End Stage Renal Disease: Less than 15 mL/min/1.73 square meters Performed By: #### T SHIRA #### [address] [address] GFR >60 Normal [facility] ([place]) Comment on above: Result Comment: GFR Population mean for , Non- Americans Ages 20-29 = 116 mL/min/1.73 sq.m. Ages 30-39 = 107 mL/min/1.73 sq.m. Ages 40-49 = 99 mL/min/1.73 sq.m. Ages 50-59 = 93 mL/min/1.73 sq.m. Ages 60-69 = 85 mL/min/1.73 sq.m. Ages 70+ = 75 mL/min/1.73 sq.m. Chronic Kidney Disease: Less than 60 mL/min/1.73 square meters End Stage Renal Disease: Less than 15 mL/min/1.73 square meters Performed By: #### T SHIRA #### [address] [address] .NEUABSon 12-19-2023 Neutrophil, Absolute 3.1 10 3/mcL Normal 2.3-8.1 [facility] ([place]) Comment on above: Performed By: #### L IP, ESR, ANEU, LAC, CBC, ADIFF, CMP, GFR ####[address] [address] CBCon 12-19-2023 Erythrocyte distribution width (RBC) [Ratio] 17.0 % High 11.5-15.5 [facility] ([place]) Comment on above: Order Comment: recol lect - contaminated - 12/19/2023 08:36:30 EDT Performed By: #### T SHIRA #### [address] [address] Hematocrit (Bld) [Volume fraction] 41.1 % Normal 40.0-52.0 [facility] ([place]) Comment on above: Order Comment: recol lect - contaminated - 12/19/2023 08:36:30 EDT Performed By: #### T SHIRA #### [address] [address] Hgb 13.8 G/dL Normal 13.0-17.5 [facility] ([place]) Comment on above: Order Comment: recol lect - contaminated - 12/19/2023 08:36:30 EDT Performed By: #### T SHIRA #### [place] [address] MCH (RBC) [Entitic mass] 28.9 pg Normal 27.0-33.0 [facility] ([place] Comment on above: Order Comment: recol lect - contaminated - 12/19/2023 08:36:30 EDT Performed By: #### T SHIRA #### [place] [address] MCHC 33.5 G/dL Normal 32.0-36.0 [facility] ([place] Comment on above: Order Comment: recol lect - contaminated - 12/19/2023 08:36:30 EDT Performed By: #### T SHIRA #### [place] [address] MCV (RBC) [Entitic vol] 86.3 fL Normal 81.0-100.0 [facility] ([place] Comment on above: Order Comment: recol lect - contaminated - 12/19/2023 08:36:30 EDT Performed By: #### T SHIRA #### [place] [address] Platelet 166 10 3/mcL Normal 150-450 [facility] ([place] Comment on above: Order Comment: recol lect - contaminated - 12/19/2023 08:36:30 EDT Performed By: #### T SHIRA #### [place] [address] Platelet mean volume (Bld) [Entitic vol] 9.1 fL Normal 6.4-10.5 [facility] ([place] Comment on above: Order Comment: recol lect - contaminated - 12/19/2023 08:36:30 EDT Performed By: #### T SHIRA #### [place] [address] RBC 4.76 10 6/mcL Normal 4.50-6.00 [facility] ([place] Comment on above: Order Comment: recol lect - contaminated - 12/19/2023 08:36:30 EDT Performed By: #### T SHIRA #### [place] [id number] WBC 5.2 10 3/mcL Normal 4.5-10.8 [facility] ([place] Comment on above: Order Comment: recol lect - contaminated - 12/19/2023 08:36:30 EDT Performed By: #### T SHIRA #### [address] [address] CMPon 12-19-2023 Albumin Level 3.1 G/dL Low 3.2-4.8 [facility] ([place] Comment on above: Performed By: #### T SHIRA #### [place] [id number] Albumin/Globulin [Mass ratio] 1.0 {ratio} Normal 0.9-1.6 [facility] ([place] Comment on above: Performed By: #### T SHIRA #### [address] [address] ALP [Catalytic activity/Vol] 57 U/L Normal 38-126 [facility] ([place] Comment on above: Performed By: #### T SHIRA #### [place] [id number] ALT [Catalytic activity/Vol] 16 U/L Normal 12-55 [facility] ([place] Comment on above: Performed By: #### T SHIRA #### [place] [id number] AST [Catalytic activity/Vol] 20 U/L Normal 8-34 [facility] ([place] Comment on above: Performed By: #### T SHIRA #### [place] [id number] Bili Total 0.30 mg/dL Normal 0.20-1.20 [facility] ([place] Comment on above: Result Comment: Use of this assay is not recommended for patients undergoing treatment with eltrombopag due to the potential for falsely elevated results. Performed By: #### T SHIRA #### [place] [id number] BUN/Creatinine Ratio 10.8 ratio Normal 10.0-22.0 [facility] ([place] Comment on above: Performed By: #### T SHIRA #### [place] [id number] Calcium [Mass/Vol] 8.7 mg/dL Normal 8.7-10.4 [facility] ([place]) Comment on above: Performed By: #### T SHIRA #### [place] [id number] Chloride [Moles/Vol] 109 mmol/L Normal 98-110 [facility] ([place] Comment on above: Performed By: #### T SHIRA #### [place] [id number] CO2 [Moles/Vol] 28 mmol/L Normal 22-32 [facility] ([place] Comment on above: Performed By: #### T SHIRA #### [place] [address] Creatinine [Mass/Vol] 0.65 mg/dL Normal 0.60-1.40 [facility] ([place] Comment on above: Performed By: #### T SHIRA #### [place] [address] Electrolyte Balance 3.0 mEq/L Low 4.0-15.0 [facility] ([place]) Comment on above: Performed By: #### T SHIRA #### [place] [address] Globulin 3.0 G/dL Normal 1.5-3.8 [facility] ([place] Comment on above: Performed By: #### T SHIRA #### [place] [id number] Glucose [Mass/Vol] 126 mg/dL High 82-115 [facility] ([place]) Comment on above: Performed By: #### T SHIRA #### [place] [id number] Potassium [Moles/Vol] 4.0 mmol/L Normal 3.5-5.0 [facility] ([place] Comment on above: Performed By: #### T SHIRA #### [address] [address] Sodium [Moles/Vol] 140 mmol/L Normal 136-145 [facility] ([place]) Comment on above: Performed By: #### T SHIRA #### [place] [id number] Total Protein 6.1 G/dL Normal 5.7-8.2 [facility] ([place]) Comment on above: Result Comment: No te - New Reference Range in effect 20 Performed By: #### T SHIRA #### [address] [address] Urea nitrogen [Mass/Vol] 7.0 mg/dL Low 8.0-22.0 [facility] ([place] Comment on above: Performed By: #### T SHIRA #### [place] [address] ESRon 12-19-2023 Erythrocyte Sed Rate 21 mm/hr High 0-20 [facility] ([place] Comment on above: Performed By: #### L IP, ESR, ANEU, LAC, CBC, ADIFF, CMP, GFR ####[address] [address] LABORATORYOrdered By: SYSTEM SYSTEM on 12-19-2023 Basophils (Bld) [#/Vol] 0.1 103/mcL Normal 0.0 - 0.3 10^3/mcL AH Workflow SS Basophils/100 WBC (Bld) 2.2 % Normal 0.0 - 2.5 % AH Workflow SS Eosinophils (Bld) [#/Vol] 0.2 103/mcL Normal 0.0 - 0.7 10^3/mcL AH Workflow SS Eosinophils/100 WBC (Bld) 4.8 % Normal 0.0 - 6.0 % AH Workflow SS Erythrocyte distribution width (RBC) [Ratio] 17.0 % High 11.5 - 15.5 % AH Workflow SS Hematocrit (Bld) [Volume fraction] 41.1 % Normal 40.0 - 52.0 % AH Workflow SS Hemoglobin (Bld) [Mass/Vol] 13.8 G/dL Normal 13.0 - 17.5 G/dL AH Workflow SS Lymphocytes (Bld) [#/Vol] 1.4 103/mcL Normal 0.9 - 4.3 10^3/mcL AH Workflow SS Lymphocytes/100 WBC (Bld) 26.5 % Normal 20.0 - 40.0 % AH Workflow SS MCH (RBC) [Entitic mass] 28.9 pg Normal 27.0 - 33.0 pg AH Workflow SS MCHC 33.5 G/dL Normal 32.0 - 36.0 G/dL AH Workflow SS MCV (RBC) [Entitic vol] 86.3 fL Normal 81.0 - 100.0 fL AH Workflow SS Monocytes (Bld) [#/Vol] 0.3 103/mcL Normal 0.1 - 1.4 10^3/mcL AH Workflow SS Monocytes/100 WBC (Bld) 6.6 % Normal 2.0 - 13.0 % AH Workflow SS Neutrophils (Bld) [#/Vol] 3.1 103/mcL Normal 2.3 - 8.1 10^3/mcL AH Workflow SS Neutrophils/100 WBC (Bld) 59.9 % Normal 50.0 - 75.0 % AH Workflow SS Platelet mean volume (Bld) [Entitic vol] 9.1 fL Normal 6.4 - 10.5 fL AH Workflow SS Platelets (Bld) [#/Vol] 166 103/mcL Normal 150 - 450 10^3/mcL AH Workflow SS RBC (Bld) [#/Vol] 4.76 106/mcL Normal 4.50 - 6.0 0 10^6/mcL AH Workflow SS WBC (Bld) [#/Vol] 5.2 103/mcL Normal 4.5 - 10.8 10^3/mcL AH Workflow SS Albumin BCP dye [Mass/Vol] 3.1 G/dL Low 3.2 - 4.8 G/dL ADM SS Albumin/Globulin [Mass ratio] 1.0 {ratio} Normal 0.9 - 1.6 ratio ADM SS ALP [Catalytic activity/Vol] 57 U/L Normal 38 - 126 U/L ADM SS ALT No additional P-5'-P [Catalytic activity/Vol] 16 U/L Normal 12 - 55 U/L AH ADM SS AST [Catalytic activity/Vol] 20 U/L Normal 8 - 34 U/L ADM SS Bilirubin [Mass/Vol] 0.30 mg/dL Normal 0.20 - 1.20 mg/dL ADM SS Comment on above: Interpretive Data: U se of this assay is not recommended for patients undergoing treatment with eltrombopag due to the potential for falsely elevated results. Calcium [Mass/Vol] 8.7 mg/dL Normal 8.7 - 10. 4 mg/dL ADM SS Chloride [Moles/Vol] 109 mmol/L Normal 98 - 11 0 mEq/L ADM SS CO2 [Moles/Vol] 28 mmol/L Normal 22 - 32 mEq/L ADM SS Creatinine [Mass/Vol] 0.65 mg/dL Normal 0.60 - 1.40 mg/dL ADM SS Electrolyte Balance 3.0 mEq/L Low 4.0 - 15 .0 mEq/L ADM SS GFR/1.73 sq M.predicted among blacks MDRD (S/P/Bld) [Vol rate/Area] ml/min/1.73sqm Invalid Interpretation Code ADM SS Comment on above: Interpretive Data: GFR Population mean for , Non- Americans Ages 20-29 = 116 mL/min/1.73 sq.m. Ages 30-39 = 107 mL/min/1.73 sq.m. Ages 40-49 = 99 mL/min/1.73 sq.m. Ages 50-59 = 93 mL/min/1.73 sq.m. Ages 60-69 = 85 mL/min/1.73 sq.m. Ages 70+ = 75 mL/min/1.73 sq.m. Chronic Kidney Disease: Less than 60 mL/min/1.73 square meters End Stage Renal Disease: Less than 15 mL/min/1.73 square meters GFR/1.73 sq M.predicted among non-blacks MDRD (S/P/Bld) [Vol rate/Area] ml/min/1.73sqm Invalid Interpretation Code ADM SS Comment on above: Interpretive Data: GFR Population mean for , Non- Americans Ages 20-29 = 116 mL/min/1.73 sq.m. Ages 30-39 = 107 mL/min/1.73 sq.m. Ages 40-49 = 99 mL/min/1.73 sq.m. Ages 50-59 = 93 mL/min/1.73 sq.m. Ages 60-69 = 85 mL/min/1.73 sq.m. Ages 70+ = 75 mL/min/1.73 sq.m. Chronic Kidney Disease: Less than 60 mL/min/1.73 square meters End Stage Renal Disease: Less than 15 mL/min/1.73 square meters Globulin 3.0 G/dL Normal 1.5 - 3.8 G/dL AH ADM SS Glucose [Mass/Vol] 126 mg/dL High 82 - 115 mg/dL AH ADM SS Lipase [Catalytic activity/Vol] 21 U/L Normal 12 - 53 U/L AH ADM SS Comment on above: Interpretive Data: * *Note - New Reference Range in effect 20 Magnesium [Mass/Vol] 1.4 mg/dL Low 1.6 - 2 .4 mg/dL AH ADM SS Potassium [Moles/Vol] 4.0 mmol/L Normal 3.5 - 5.0 mEq/L AH ADM SS Protein [Mass/Vol] 6.1 G/dL Normal 5.7 - 8.2 G/dL AH ADM SS Comment on above: Interpretive Data: * *Note - New Reference Range in effect 20 Sodium [Moles/Vol] 140 mmol/L Normal 136 - 145 mEq/L AH ADM SS Urea nitrogen [Mass/Vol] 7.0 mg/dL Low 8.0 - 22.0 mg/dL AH ADM SS Urea nitrogen/Creatinine [Mass ratio] 10.8 ratio Normal 10.0 - 22.0 ratio AH ADM SS LABORATORYOrdered By: Samantha Schumacher on 12-19-2023 ESR 15 minute reading (Bld) [Velocity] 21 mm/hr High 0 - 20 mm/hr AH Auto Heme SS LABORATORYOrdered By: Aleja Lara on 12-19-2023 Lactic Acid Lvl 1.1 mmol/L Normal 0.2 - 2.0 mmol/L AH Main Rapid Comm SS LACon 12-19-2023 Lactic Acid Lvl 1.1 mmol/L Normal 0.2-2.0 [facility] ([place]) Comment on above: Performed By: #### [facility] #### [address] 12-19-2023 Lipase Level 21 U/L Normal 12-53 [facility] ([place]) Comment on above: Result Comment: No te - New Reference Range in effect 20 Performed By: #### [facility] #### [facility] [address] [place] [address] MGon 12-19-2023 Magnesium [Mass/Vol] 1.4 mg/dL Low 1.6-2.4 [facility] ([place]) Comment on above: Performed By: #### M G ####[address] [address] No Panel Informationon 12-18 Microscopic examination of blood, culture Culture has been received in lab and is no growth to date. Routine cultures are held for 5 days. [facility] Microscopic examination of blood, culture Culture has been received in lab and is no growth to date. Routine cultures are held for 5 days. [facility] .Auto Diffon 12-18-2023 Basophil, Absolute 0.0 10 3/mcL Normal 0.0-0.3 [facility] ([place]) Comment on above: Performed By: #### C KANDICE, GEOVANY, LAUREN, ANEU, ADIFF, LIP, CBC ####[address] [address] Basophils/100 WBC (Bld) 0.4 % Normal 0.0-2.5 [facility] ([place]) Comment on above: Performed By: #### C KANDICE, GEOVANY, LAUREN, ANEU, ADIFF, LIP, CBC ####[place] [id number] [address] [place] [address] Eosinophil, Absolute 0.2 10 3/mcL Normal 0.0-0.7 [facility] ([place]) Comment on above: Performed By: #### C KANDICE, GEOVANY, LAUREN, ANEU, ADIFF, LIP, CBC ####[address] [address] Eosinophils/100 WBC (Bld) 2.9 % Normal 0.0-6.0 [facility] ([place]) Comment on above: Performed By: #### C MP, GFR, MDW, ANEU, ADIFF, LIP, CBC ####[address] [address] Lymphocyte, Absolute 1.8 10 3/mcL Normal 0.9-4.3 [facility] ([place]) Comment on above: Performed By: #### C MP, GFR, MDW, ANEU, ADIFF, LIP, CBC ####[address] [address] Lymphocytes/100 WBC (Bld) 24.8 % Normal 20.0-40.0 [facility] ([place]) Comment on above: Performed By: #### C MP, GFR, MDW, ANEU, ADIFF, LIP, CBC ####[address] [address] Monocyte, Absolute 0.4 10 3/mcL Normal 0.1-1.4 [facility] ([place]) Comment on above: Performed By: #### C MP, GFR, MDW, ANEU, ADIFF, LIP, CBC ####[address] [address] Monocytes/100 WBC (Bld) 5.7 % Normal 2.0-13.0 [facility] ([place]) Comment on above: Performed By: #### C MP, GFR, MDW, ANEU, ADIFF, LIP, CBC ####[address] [address] Neutrophils/100 WBC (Bld) 66.2 % Normal 50.0-75.0 [facility] ([place]) Comment on above: Performed By: #### C MP, GFR, MDW, ANEU, ADIFF, LIP, CBC ####[address] [address] .GFRon 12-18-2023 GFR >60 Normal [facility] ([place]) Comment on above: Result Comment: GFR Population mean for , Non- Americans Ages 20-29 = 116 mL/min/1.73 sq.m. Ages 30-39 = 107 mL/min/1.73 sq.m. Ages 40-49 = 99 mL/min/1.73 sq.m. Ages 50-59 = 93 mL/min/1.73 sq.m. Ages 60-69 = 85 mL/min/1.73 sq.m. Ages 70+ = 75 mL/min/1.73 sq.m. Chronic Kidney Disease: Less than 60 mL/min/1.73 square meters End Stage Renal Disease: Less than 15 mL/min/1.73 square meters Performed By: #### C MP, GFR, MDW, ANEU, ADIFF, LIP, CBC ####[place] [address] GFR Non- >60 Normal [facility] ([place]) Comment on above: Result Comment: GFR Population mean for , Non- Americans Ages 20-29 = 116 mL/min/1.73 sq.m. Ages 30-39 = 107 mL/min/1.73 sq.m. Ages 40-49 = 99 mL/min/1.73 sq.m. Ages 50-59 = 93 mL/min/1.73 sq.m. Ages 60-69 = 85 mL/min/1.73 sq.m. Ages 70+ = 75 mL/min/1.73 sq.m. Chronic Kidney Disease: Less than 60 mL/min/1.73 square meters End Stage Renal Disease: Less than 15 mL/min/1.73 square meters Performed By: #### C MP, GFR, MDW, ANEU, ADIFF, LIP, CBC ####[place] [address] .MDWon 12-18-2023 Monocyte Distribution Width 17.81 Normal 0.00-20.00 [facility] ([place] Comment on above: Result Comment: For ED adult patients suspected of sepsis, MDW<=20.0 does not rule out sepsis or risk of sepsis Performed By: #### C MP, GFR, MDW, ANEU, ADIFF, LIP, CBC ####[place] [address] .NEUABSon 12-18-2023 Neutrophil, Absolute 4.7 10 3/mcL Normal 2.3-8.1 [facility] ([place]) Comment on above: Performed By: #### C MP, GFR, MDW, ANEU, ADIFF, LIP, CBC ####[place] [address] CBCon 12-18-2023 Erythrocyte distribution width (RBC) [Ratio] 16.9 % High 11.5-15.5 [facility] ([place]) Comment on above: Performed By: #### C KANDICE, GFR, MDW, ANEU, ADIFF, LIP, CBC ####[place] [address] Hematocrit (Bld) [Volume fraction] 42.9 % Normal 40.0-52.0 [facility] ([place] Comment on above: Performed By: #### C MP, GFR, MDW, ANEU, ADIFF, LIP, CBC ####[place] [address] Hgb 14.3 G/dL Normal 13.0-17.5 [facility] ([place]) Comment on above: Performed By: #### C KANDICE, GFR, W, ANEU, ADIFF, LIP, CBC ####[place] [address] MCH (RBC) [Entitic mass] 28.5 pg Normal 27.0-33.0 [facility] ([place] Comment on above: Performed By: #### C KANDICE, GFR, MDW, ANEU, ADIFF, LIP, CBC ####[place] [address] MCHC 33.3 G/dL Normal 32.0-36.0 [facility] ([place]) Comment on above: Performed By: #### C MP, GFR, MDW, ANEU, ADIFF, LIP, CBC ####[place] [address] MCV (RBC) [Entitic vol] 85.7 fL Normal 81.0-100.0 [facility] ([place] Comment on above: Performed By: #### C MP, GFR, MDW, ANEU, ADIFF, LIP, CBC ####[place] [address] Platelet 187 10 3/mcL Normal 150-450 [facility] ([place] Comment on above: Performed By: #### C MP, GFR, MDW, ANEU, ADIFF, LIP, CBC ####[place] [address] Platelet mean volume (Bld) [Entitic vol] 8.4 fL Normal 6.4-10.5 [facility] ([place] Comment on above: Performed By: #### C MP, GFR, MDW, ANEU, ADIFF, LIP, CBC ####[place] [address] RBC 5.00 10 6/mcL Normal 4.50-6.00 [facility] ([place] Comment on above: Performed By: #### C MP, GFR, MDW, ANEU, ADIFF, LIP, CBC ####[place] [address] WBC 7.1 10 3/mcL Normal 4.5-10.8 [facility] ([place] Comment on above: Performed By: #### C MP, GFR, MDW, ANEU, ADIFF, LIP, CBC ####[place] [address] CMPon 12-18-2023 Albumin Level 3.7 G/dL Normal 3.2-4.8 [facility] ([place] Comment on above: Performed By: #### C MP, GFR, MDW, ANEU, ADIFF, LIP, CBC ####[place] [address] Albumin/Globulin [Mass ratio] 1.1 {ratio} Normal 0.9-1.6 [facility] ([place] Comment on above: Performed By: #### C MP, GFR, MDW, ANEU, ADIFF, LIP, CBC ####[place] [address] ALP [Catalytic activity/Vol] 66 U/L Normal 38-126 [facility] ([place] Comment on above: Performed By: #### C MP, GFR, MDW, ANEU, ADIFF, LIP, CBC ####[place] [address] ALT [Catalytic activity/Vol] 16 U/L Normal 12-55 [facility] ([place] Comment on above: Performed By: #### C MP, GFR, MDW, ANEU, ADIFF, LIP, CBC ####[address] [address] AST [Catalytic activity/Vol] 15 U/L Normal 8-34 [facility] ([place] Comment on above: Performed By: #### C MP, GFR, MDW, ANEU, ADIFF, LIP, CBC ####[place] [address] Bili Total 0.40 mg/dL Normal 0.20-1.20 [facility] ([place]) Comment on above: Result Comment: Use of this assay is not recommended for patients undergoing treatment with eltrombopag due to the potential for falsely elevated results. Performed By: #### C MP, GFR, MDW, ANEU, ADIFF, LIP, CBC ####[place] [address] BUN/Creatinine Ratio 13.4 ratio Normal 10.0-22.0 [facility] ([place] Comment on above: Performed By: #### C MP, GFR, MDW, ANEU, ADIFF, LIP, CBC ####[place] [address] Calcium [Mass/Vol] 9.6 mg/dL Normal 8.7-10.4 [facility] ([place]) Comment on above: Performed By: #### C MP, GFR, MDW, ANEU, ADIFF, LIP, CBC ####[address] [address] Chloride [Moles/Vol] 106 mmol/L Normal 98-110 [facility] ([place]) Comment on above: Performed By: #### C MP, GFR, MDW, ANEU, ADIFF, LIP, CBC ####[address] [address] CO2 [Moles/Vol] 28 mmol/L Normal 22-32 [facility] ([place] Comment on above: Performed By: #### C MP, GFR, MDW, ANEU, ADIFF, LIP, CBC ####[address] [address] Creatinine [Mass/Vol] 0.67 mg/dL Normal 0.60-1.40 Formerly [facility], 1928–1983 ([place]) Comment on above: Performed By: #### C MP, GFR, MDW, ANEU, ADIFF, LIP, CBC ####[address] [address] Electrolyte Balance 5.0 mEq/L Normal 4.0-15.0 [facility] ([place]) Comment on above: Performed By: #### C MP, GFR, MDW, ANEU, ADIFF, LIP, CBC ####[address] [address] Globulin 3.4 G/dL Normal 1.5-3.8 [facility] ([place]) Comment on above: Performed By: #### C MP, GFR, MDW, ANEU, ADIFF, LIP, CBC ####[address] [address] Glucose [Mass/Vol] 139 mg/dL High 82-115 [facility] ([place]) Comment on above: Performed By: #### C MP, GFR, MDW, ANEU, ADIFF, LIP, CBC ####[address] [address] Potassium [Moles/Vol] 3.7 mmol/L Normal 3.5-5.0 [facility], 1928–1983 ([place]) Comment on above: Performed By: #### C MP, GFR, MDW, ANEU, ADIFF, LIP, CBC ####[address] [address] Sodium [Moles/Vol] 139 mmol/L Normal 136-145 [facility] ([place]) Comment on above: Performed By: #### C MP, GFR, MDW, ANEU, ADIFF, LIP, CBC ####[address] [address] Total Protein 7.1 G/dL Normal 5.7-8.2 [facility] ([place]) Comment on above: Result Comment: No te - New Reference Range in effect 20 Performed By: #### C MP, GFR, MDW, ANEU, ADIFF, LIP, CBC ####[place] [id number] [place] [address] Urea nitrogen [Mass/Vol] 9.0 mg/dL Normal 8.0-22.0 [facility] ([place]) Comment on above: Performed By: #### C MP, GEOVANY, MDW, ANEU, DANILO, ADAM, CBC ####[place] [id number] [place] [address] ABD/PELVIS W/ IV CONTRAST ONLYon 12-18-2023 CT ABD/PELVIS W/ IV CONTRAST ONLY ORIGINAL EXAMINATION: CT OF THE ABDOMEN AND PELVIS WITH CONTRAST 12/18/2023 8:26 pm TECHNIQUE: CT of the abdomen and pelvis was performed with the administration of intravenous contrast. Multiplanar reformatted images are provided for review. Automated exposure control, iterative reconstruction, and/or weight based adjustment of the mA/kV was utilized to reduce the radiation dose to as low as reasonably achievable. COMPARISON: CT abdomen pelvis 12/04/2023 and MRI abdomen 11/19/2023. HISTORY: ORDERING SYSTEM PROVIDED HISTORY: Reason for Exam: ABD PAIN, N/V, PT STATES RECENT DIAGNOSES OF LIVER ABSCESS abdominal pain FINDINGS: The heart is normal in size. No pericardial thickening or effusion. Bibasilar atelectasis. No acute abnormality within the visualized lower lungs. The aorta is nonaneurysmal with mild atherosclerosis. There is enlarged hyacinth hepatis lymph node measuring 1.6 cm (series 2, image 45), improved from the prior where it measured approximately 2.1 cm. Interval removal of the 3 hepatic drains. There remains ill-defined hypodensity within inferior right hepatic lobe adjacent to the gallbladder fossa. This region measures approximately 5.6 x 6.0 x 4.9 cm (AP x TR x CC) (series 2, image 44 and coronal image 48), difficult to compare with the prior CT although appears much smaller compared to the most recent MR from 11/19/2023. No new area of disease is seen within the liver. The spleen is upper limit of normal at 13.1 cm. The gallbladder and bilateral adrenal glands are unremarkable. The common bile duct is stable in size measuring up to 0.9 cm. Stable mild intrahepatic biliary ductal dilation. Stable masslike consolidation at the pancreatic head with apparent atrophy of the remaining pancreas. Stable 0.9 cm calcification near the ampulla of Vater. Symmetric nephrograms. No hydronephrosis or renal calculi. Stable subcentimeter hypodensity within the right midpole too small to characterize but most likely represents simple cyst. Stable bilateral minimal perinephric stranding. The bladder is partially decompressed but otherwise unremarkable. The prostate is normal in size. No pneumoperitoneum or free fluid. The large and small bowel are normal in caliber. The appendix is unremarkable. No inflammatory changes of the GI tract. No acute osseous abnormality. Chronic posterior left 8 and 9th rib deformities. Soft tissue changes related to prior hepatic drains. IMPRESSION: Interval removal of hepatic drainage catheters. There is infiltrative hypodensity noted within the inferior right hepatic lobe measuring up to 6 cm. Difficult to compare to the prior study given the prior hepatic drains however appears smaller when compared to the prior MRI from 11/19/2023. Probably this represents residual phlegmon, perhaps with microabscesses. If clinically appropriate, repeat MRI could be considered. Reducing hyacinth hepatis adenopathy. Similar masslike prominence of the pancreatic head better evaluated on the prior MR. Again could represent focal pancreatitis versus pancreatic neoplasm. Stable mildly dilated common bile duct and intrahepatic biliary ducts. Could be related to calcification seen near the ampullary Vater versus above pancreatic head disease. I have personally reviewed the images of this examination and agree with the resident's findings and interpretation. Interpreted by: Alycia Hawk Preliminary Report By: Charles Zuluaga Electronically signed By Alycia Hawk Dictated Date: 12/18/2023 8:28:11 PM Prelim Date: 12/18/2023 8:46:38 PM Sign Date: 12/18/2023 8:59:21 PM Ordering Provider: EILEEN Peoples [facility] ([place]) LABORATORYOrdered By: SYSTEM SYSTEM on 12-18-2023 Albumin BCP dye [Mass/Vol] 3.7 G/dL Normal 3.2 - 4.8 G/dL AH ADM SS Albumin/Globulin [Mass ratio] 1.1 {ratio} Normal 0.9 - 1.6 ratio AH ADM SS ALP [Catalytic activity/Vol] 66 U/L Normal 38 - 126 U/L AH ADM SS ALT No additional P-5'-P [Catalytic activity/Vol] 16 U/L Normal 12 - 55 U/L AH ADM SS AST [Catalytic activity/Vol] 15 U/L Normal 8 - 34 U/L ADM SS Basophils (Bld) [#/Vol] 0.0 103/mcL Normal 0.0 - 0.3 10^3/mcL AH Workflow SS Basophils/100 WBC (Bld) 0.4 % Normal 0.0 - 2.5 % Workflow SS Bilirubin [Mass/Vol] 0.40 mg/dL Normal 0.20 - 1.20 mg/dL ADM SS Comment on above: Interpretive Data: U se of this assay is not recommended for patients undergoing treatment with eltrombopag due to the potential for falsely elevated results. Eosinophils (Bld) [#/Vol] 0.2 103/mcL Normal 0.0 - 0.7 10^3/mcL Workflow SS Eosinophils/100 WBC (Bld) 2.9 % Normal 0.0 - 6.0 % Workflow SS Erythrocyte distribution width (RBC) [Ratio] 16.9 % High 11.5 - 15.5 % Workflow SS Globulin 3.4 G/dL Normal 1.5 - 3.8 G/dL ADM SS Hematocrit (Bld) [Volume fraction] 42.9 % Normal 40.0 - 52.0 % Workflow SS Hemoglobin (Bld) [Mass/Vol] 14.3 G/dL Normal 13.0 - 17.5 G/dL Workflow SS Lipase [Catalytic activity/Vol] 25 U/L Normal 12 - 53 U/L ADM SS Comment on above: Interpretive Data: * *Note - New Reference Range in effect 20 Lymphocytes (Bld) [#/Vol] 1.8 103/mcL Normal 0.9 - 4.3 10^3/mcL Workflow SS Lymphocytes/100 WBC (Bld) 24.8 % Normal 20.0 - 40.0 % Workflow SS MCH (RBC) [Entitic mass] 28.5 pg Normal 27.0 - 33.0 pg AH Workflow SS MCHC 33.3 G/dL Normal 32.0 - 36.0 G/dL Workflow SS MCV (RBC) [Entitic vol] 85.7 fL Normal 81.0 - 100.0 fL Workflow SS Monocyte distribution width Auto (Bld) [Entitic vol] 17.81 1 Normal 0.00 - 20.00 Workflow SS Comment on above: Result Comment: For ED adult patients suspected of sepsis, MDW<=20.0 does not rule out sepsis or risk of sepsis Monocytes (Bld) [#/Vol] 0.4 103/mcL Normal 0.1 - 1.4 10^3/mcL AH Workflow SS Monocytes/100 WBC (Bld) 5.7 % Normal 2.0 - 13.0 % AH Workflow SS Neutrophils (Bld) [#/Vol] 4.7 103/mcL Normal 2.3 - 8.1 10^3/mcL AH Workflow SS Neutrophils/100 WBC (Bld) 66.2 % Normal 50.0 - 75.0 % AH Workflow SS Platelet mean volume (Bld) [Entitic vol] 8.4 fL Normal 6.4 - 10.5 fL AH Workflow SS Platelets (Bld) [#/Vol] 187 103/mcL Normal 150 - 450 10^3/mcL AH Workflow SS Protein [Mass/Vol] 7.1 G/dL Normal 5.7 - 8.2 G/dL AH ADM SS Comment on above: Interpretive Data: * *Note - New Reference Range in effect 20 RBC (Bld) [#/Vol] 5.00 106/mcL Normal 4.50 - 6.0 0 10^6/mcL AH Workflow SS WBC (Bld) [#/Vol] 7.1 103/mcL Normal 4.5 - 10.8 10^3/mcL AH Workflow SS LABORATORYOrdered By: Cassie Cheng on 12-18-2023 Appearance (U) Clear (12/18/23 12:46 PM) Normal Clear AH Auto Urine SS Bilirubin Ql (U) Negative (12/18/23 12:46 PM) Normal Neg-Trace AH Auto Urine SS Color (U) Yellow (12/18/23 12:46 PM) Normal AH Auto Urine SS Glucose Test strip (U) [Mass/Vol] Negative Normal Negative AH Auto Urine SS Hemoglobin Auto test strip (U) [Mass/Vol] Negative (12/18/23 12:46 PM) Normal Neg-Trace AH Auto Urine SS Ketones Ql (U) Negative Normal Neg-Trace AH Auto Ur ine SS UA Leuk Est Negative (12/18/23 12:46 PM) Normal Negative AH Auto Urine SS UA Nitrite Negative (12/18/23 12:46 PM) Normal Negative AH Auto Urine SS UA pH 6.0 (6/24/24 12:46 PM) Normal 5.0 - 8.0 Auto Urine SS UA Protein Negative Normal Negative Auto Urine SS UA Spec Grav 1.015 (12/18/23 12:46 PM) Normal 1.006-1.029 Auto Urine SS UA Specimen Type Clean Catch (12/18/23 12:46 PM) Normal Auto Urine SS UA Urobilinogen 0.2 E.U./dL Normal 0.2-1.0 Auto Urine SS LIPon 12-18-2023 Lipase Level 25 U/L Normal 12-53 [facility] ([place]) Comment on above: Result Comment: No te - New Reference Range in effect 20 Performed By: #### C MP, GFR, MDW, ANEU, ADCINDY, LIP, CBC ####[place] [address] UAon 12-18-2023 Color (U) Yellow Normal [facility] ([place]) Comment on above: Performed By: #### U A ####[place] [address] Glucose (U) [Mass/Vol] Negative Normal Negative [facility] ([place]) Comment on above: Performed By: #### U A ####[place] [address] Ketones Ql (U) Negative Normal Neg-Trace [facility] ([place]) Comment on above: Performed By: #### U A ####[place] [address] UA Appear Clear Normal Clear [facility] ([place]) Comment on above: Performed By: #### U A ####[place] [address] UA Blood Negative Normal Neg-Trace [facility] ([place]) Comment on above: Performed By: #### U A ####[place] [address] UA Leuk Est Negative Normal Negative [facility] ([place]) Comment on above: Performed By: #### U A ####[place] [address] UA Nitrite Negative Normal Negative [facility] ([place]) Comment on above: Performed By: #### U A ####[place] [address] UA pH 6.0 Normal 5.0 - 8.0 [facility] ([place]) Comment on above: Performed By: #### U A ####[place] [address] UA Protein Negative Normal Negative [facility] ([place]) Comment on above: Performed By: #### U A ####[place] [address] UA Spec Grav 1.015 Normal 1.006-1.029 [facility] ([place]) Comment on above: Performed By: #### U A ####[place] [address] UA Specimen Type Clean Catch Normal [facility] ([place]) Comment on above: Performed By: #### U A ####[place] [address] UA Urobilinogen 0.2 E.U./dL Normal 0.2-1.0 [facility] ([place]) Comment on above: Performed By: #### U A ####[place] [address] Urobilinogen (U) [Mass/Vol] Negative Normal Neg-Trace [facility] ([place]) Comment on above: Performed By: #### U A ####[place] [address] .Auto Diffon 12-04-2023 Basophil, Absolute 0.2 10 3/mcL Normal 0.0-0.3 [facility] ([place]) Comment on above: Performed By: #### LAUREN OWENS, CHRISTEL, ADCINDY, ANEU, CBC ####[place] [address] Basophils/100 WBC (Bld) 2.2 % Normal 0.0-2.5 [facility] ([place]) Comment on above: Performed By: #### LAUREN OWENS, CHRISTEL, ADIFF, ANEU, CBC ####[address] [address] Eosinophil, Absolute 0.2 10 3/mcL Normal 0.0-0.7 [facility] ([place]) Comment on above: Performed By: #### LAUREN OWENS, CMP, ADIFF, ANEU, CBC ####[address] [address] Eosinophils/100 WBC (Bld) 3.1 % Normal 0.0-6.0 [facility] ([place]) Comment on above: Performed By: #### Loretta TORRES, LAUREN, CMP, ADIFF, ANEU, CBC ####[address] [address] Lymphocyte, Absolute 1.7 10 3/mcL Normal 0.9-4.3 [facility] ([place]) Comment on above: Performed By: #### LAUREN OWENS, CMP, ADIFF, ANEU, CBC ####[address] [address] Lymphocytes/100 WBC (Bld) 23.8 % Normal 20.0-40.0 [facility] ([place]) Comment on above: Performed By: #### LAUREN OWENS, CMP, ADIFF, ANEU, CBC ####[address] [address] Monocyte, Absolute 0.5 10 3/mcL Normal 0.1-1.4 [facility] ([place]) Comment on above: Performed By: #### LAUREN OWENS, CMP, ADIFF, ANEU, CBC ####[address] [address] Monocytes/100 WBC (Bld) 6.6 % Normal 2.0-13.0 [facility] ([place]) Comment on above: Performed By: #### Loretta TORRES, LAUREN, CMP, ADIFF, ANEU, CBC ####[address] [address] Neutrophils/100 WBC (Bld) 64.3 % Normal 50.0-75.0 [facility] ([place]) Comment on above: Performed By: #### Loretta TORRES, LAUREN, CMP, ADIFF, ANEU, CBC ####[address] [address] .GFRon 12-04-2023 GFR Non- >60 Normal [facility] ([place]) Comment on above: Result Comment: GFR Population mean for , Non- Americans Ages 20-29 = 116 mL/min/1.73 sq.m. Ages 30-39 = 107 mL/min/1.73 sq.m. Ages 40-49 = 99 mL/min/1.73 sq.m. Ages 50-59 = 93 mL/min/1.73 sq.m. Ages 60-69 = 85 mL/min/1.73 sq.m. Ages 70+ = 75 mL/min/1.73 sq.m. Chronic Kidney Disease: Less than 60 mL/min/1.73 square meters End Stage Renal Disease: Less than 15 mL/min/1.73 square meters Performed By: #### G , LAUREN, CHRISTEL, ADIFF, ANEU, CBC ####[place] [address] GFR >60 Normal [facility] ([place]) Comment on above: Result Comment: GFR Population mean for , Non- Americans Ages 20-29 = 116 mL/min/1.73 sq.m. Ages 30-39 = 107 mL/min/1.73 sq.m. Ages 40-49 = 99 mL/min/1.73 sq.m. Ages 50-59 = 93 mL/min/1.73 sq.m. Ages 60-69 = 85 mL/min/1.73 sq.m. Ages 70+ = 75 mL/min/1.73 sq.m. Chronic Kidney Disease: Less than 60 mL/min/1.73 square meters End Stage Renal Disease: Less than 15 mL/min/1.73 square meters Performed By: #### G , LAUREN, CMP, ADIFF, ANEU, CBC ####[place] [address] .MDWon 12-04-2023 Monocyte Distribution Width 19.16 Normal 0.00-20.00 [facility] ([place]) Comment on above: Result Comment: For ED adult patients suspected of sepsis, MDW<=20.0 does not rule out sepsis or risk of sepsis Performed By: #### G FR, MDW, CHRISTEL, ADCINDY, ANEU, CBC ####[place] [address] .NEUABSon 12-04-2023 Neutrophil, Absolute 4.6 10 3/mcL Normal 2.3-8.1 [facility] ([place]) Comment on above: Performed By: #### LAUREN OWENS, CHRISTEL, ADIFF, ANEU, CBC ####[place] [address] CBCon 12-04-2023 Erythrocyte distribution width (RBC) [Ratio] 16.2 % High 11.5-15.5 [facility] ([place]) Comment on above: Performed By: #### LAUREN OWENS, CHRISTEL, ADCINDY, ANEU, CBC ####[place] [address] Hematocrit (Bld) [Volume fraction] 39.7 % Low 40.0-52.0 [facility] ([place]) Comment on above: Performed By: #### LAUREN OWENS, CHRISTEL, ADIFF, ANEU, CBC ####[place] [address] Hgb 13.2 G/dL Normal 13.0-17.5 [facility] ([place] Comment on above: Performed By: #### LAUREN OWENS, CHRISTEL, ADIFF, ANEU, CBC ####[place] [address] MCH (RBC) [Entitic mass] 28.4 pg Normal 27.0-33.0 [facility] ([place]) Comment on above: Performed By: #### LAUREN OWENS, CHRISTEL, ADIFF, ANEU, CBC ####[place] [address] MCHC 33.2 G/dL Normal 32.0-36.0 [facility] ([place]) Comment on above: Performed By: #### LAUREN OWENS, CHRISTEL, ADIFF, ANEU, CBC ####[place] [address] MCV (RBC) [Entitic vol] 85.6 fL Normal 81.0-100.0 [facility] ([place]) Comment on above: Performed By: #### LAUREN OWENS, CHRISTEL, ADIFF, ANEU, CBC ####[address] [address] Platelet 338 10 3/mcL Normal 150-450 [facility] ([place]) Comment on above: Performed By: #### LAUREN OWENS, CHRISTEL, ADIFF, ANEU, CBC ####[place] [address] Platelet mean volume (Bld) [Entitic vol] 8.3 fL Normal 6.4-10.5 [facility] ([place]) Comment on above: Performed By: #### LAUREN OWENS, CHRISTEL, ADIFF, ANEU, CBC ####[place] [address] RBC 4.64 10 6/mcL Normal 4.50-6.00 [facility] ([place]) Comment on above: Performed By: #### LARUEN OWENS, CHRISTEL, ADIFF, ANEU, CBC ####[place] [address] WBC 7.2 10 3/mcL Normal 4.5-10.8 [facility] ([place]) Comment on above: Performed By: #### LAUREN OWENS, CHRISTEL, ADIFF, ANEU, CBC ####[place] [address] CMPon 12-04-2023 Albumin Level 3.6 G/dL Normal 3.2-4.8 [facility] ([place] Comment on above: Performed By: #### LAUREN OWENS, CHRISTEL, ADIFF, ANEU, CBC ####[place] [address] Albumin/Globulin [Mass ratio] 0.8 {ratio} Low 0.9-1.6 [facility] ([place] Comment on above: Performed By: #### LAUREN OWENS, CHRISTEL, ADIFF, ANEU, CBC ####[place] [address] ALP [Catalytic activity/Vol] 95 U/L Normal 38-126 [facility] ([place] Comment on above: Performed By: #### LAUREN OWENS, CHRISTEL, ADIFF, ANEU, CBC ####[address] [address] ALT [Catalytic activity/Vol] 10 U/L Low 12-55 [facility] ([place] Comment on above: Performed By: #### LAUREN OWENS, CHRISTEL, ADIFF, ANEU, CBC ####[address] [address] AST [Catalytic activity/Vol] 18 U/L Normal 8-34 [facility] ([place] Comment on above: Performed By: #### LAUREN OWENS, CMP, ADIFF, ANEU, CBC ####[address] [address] Bili Total 0.20 mg/dL Normal 0.20-1.20 [facility] ([place]) Comment on above: Result Comment: Use of this assay is not recommended for patients undergoing treatment with eltrombopag due to the potential for falsely elevated results. Performed By: #### LAUREN OWENS, CHRISTEL, ADIFF, ANEU, CBC ####[place] [address] BUN/Creatinine Ratio 18.6 ratio Normal 10.0-22.0 [facility] ([place]) Comment on above: Performed By: #### LAUREN OWENS, CHRISTEL, ADIFF, ANEU, CBC ####[address] [address] Calcium [Mass/Vol] 9.7 mg/dL Normal 8.7-10.4 [facility] ([place]) Comment on above: Performed By: #### LAUREN OWENS, CHRISTEL, ADIFF, ANEU, CBC ####[address] [address] Chloride [Moles/Vol] 103 mmol/L Normal 98-110 [facility] ([place]) Comment on above: Performed By: #### LAUREN OWENS, CHRISTEL, ADIFF, ANEU, CBC ####[address] [address] CO2 [Moles/Vol] 29 mmol/L Normal 22-32 [facility] ([place]) Comment on above: Performed By: #### LAUREN OWENS, CHRISTEL, ADIFF, ANEU, CBC ####[address] [address] Creatinine [Mass/Vol] 0.97 mg/dL Normal 0.60-1.40 [facility] ([place] Comment on above: Performed By: #### LAUREN OWENS, CHRISTEL, ADIFF, ANEU, CBC ####[address] [address] Electrolyte Balance 5.0 mEq/L Normal 4.0-15.0 [facility] ([place]) Comment on above: Performed By: #### LAUREN OWENS, CHRISTEL, ADIFF, ANEU, CBC ####[address] [address] Globulin 4.4 G/dL High 1.5-3.8 [facility] ([place]) Comment on above: Performed By: #### LAUREN OWENS, CHRISTEL, ADIFF, ANEU, CBC ####[address] [address] Glucose [Mass/Vol] 239 mg/dL High 82-115 [facility] ([place]) Comment on above: Performed By: #### LAUREN OWENS, CHRISTEL, ADIFF, ANEU, CBC ####[address] [address] Potassium [Moles/Vol] 3.9 mmol/L Normal 3.5-5.0 [facility] ([place] Comment on above: Performed By: #### LAUREN OWENS, CHRISTEL, ADIFF, ANEU, CBC ####[address] [address] Sodium [Moles/Vol] 137 mmol/L Normal 136-145 [facility] ([place]) Comment on above: Performed By: #### LAUREN OWENS, CHRISTEL, ADIFF, ANEU, CBC ####[address] [address] Total Protein 8.0 G/dL Normal 5.7-8.2 [facility] ([place]) Comment on above: Result Comment: No te - New Reference Range in effect 20 Performed By: #### G LAUREN TORRES, CHRISTEL, DANILO, BLAINE, CBC ####[place] [address] [place] [address] Urea nitrogen [Mass/Vol] 18.0 mg/dL Normal 8.0-22.0 [facility] ([place]) Comment on above: Performed By: #### G LAUREN TORRES, CHRISTEL, DANILO, ANEU, CBC ####[facility] [place] [address] ABDOMEN W/ IV CONTRAST ON [place] 12-04-2023 CT ABDOMEN W/ IV CONTRAST ONLY ORIGINAL EXAMINATION: CT ABDOMEN WITH CONTRAST 12/04/2023 10:57 am TECHNIQUE: CT of the abdomen was performed with the administration of intravenous contrast. Multiplanar reformatted images are provided for review. Automated exposure control, iterative reconstruction, and/or weight based adjustment of the mA/kV was utilized to reduce the radiation dose to as low as reasonably achievable. COMPARISON: MRI abdomen 11/19/[address] abdomen/pelvis 11/13/2023 HISTORY: ORDERING SYSTEM PROVIDED HISTORY: Reason for Exam: PT HAS 3 LIVER TUBES, STATES HE PULLED ONE 3" OUT TODAY evaluation of nephrostomy tubes FINDINGS: The lung bases demonstrate bibasilar subsegmental atelectasis/scarring. No acute abnormalities identified. Coronary artery atherosclerotic calcifications. Aortic root calcifications. Evaluation is significantly degraded secondary to metal artifact from surgical drains. 3 hepatic drains are present. The anterior-most drain appears some peripherally located along the margin of the liver. Previously described irregular heterogeneous area within the inferior liver is difficult to accurately measure although appears smaller compared to 11/13/2023 exam. A few locules of air are seen within the collection. There is mild intra and extrahepatic biliary ductal dilatation which is new from comparison 11/13/2023 exam. Spleen is borderline enlarged measuring 13.1 cm. The adrenal glands are unremarkable. Trace pericystic edema. Focal masslike appearance of the pancreatic head is similar to prior. Unchanged 9 mm calcification within the pancreatic head. The portal vein and superior mesenteric veins appear patent. A nephrostomy tube is not visualized within either kidney. No obstructing renal calculus or hydronephrosis is identified. There is pericystic fluid/infiltrative changes bilaterally. Visualized portions of the ureters are grossly unremarkable. Hyacinth hepatis lymphadenopathy measuring 2.2 cm appears enlarged, previously 1.8 cm. Trace perihepatic fluid. Atherosclerotic calcifications of the nonaneurysmal abdominal aorta. Tiny fat containing umbilical hernia. Visualized colon and small bowel demonstrate no acute abnormality. Multilevel degenerative changes of the spine without acute or aggressive osseous abnormality. IMPRESSION: Exam is degraded secondary to metal artifact. 1. 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 The anterior-most surgical hepatic drain appears peripheral along the margin of the liver with new subcapsular fluid. Areas hepatic heterogeneity are poorly evaluated although appear smaller from comparison 11/13/2023 exam. Interval development of mild intra and extrahepatic biliary ductal dilatation which may represent postobstructive biliopathy or perhaps cholangitis. 2. Similar focal masslike prominence of the pancreatic head with atrophy of the remaining pancreas better evaluated on comparison MRI abdomen. This may represent focal pancreatitis versus pancreatic neoplasm. 3. Enlarging hyacinth hepatis lymphadenopathy which may reactive/hyperplastic or metastatic disease. 4. Other chronic and incidental findings as above. I have personally reviewed the images of this examination and agree with the resident's findings and interpretations. Interpreted by: Mireya Marley MD Preliminary Report By: Heber Brar Electronically signed By Mireya Marley MD Dictated Date: 12/04/2023 11:02:16 AM Prelim Date: 12/04/2023 11:34:57 AM Sign Date: 12/04/2023 12:33:50 PM Ordering Provider: ZACK Peoples [facility] ([place] LABORATORYOrdered By: SYSTEM SYSTEM on 12-04-2023 Albumin BCP dye [Mass/Vol] 3.6 G/dL Normal 3.2 - 4.8 G/dL AH ADM SS Albumin/Globulin [Mass ratio] 0.8 {ratio} Low 0.9 - 1.6 ratio AH ADM SS ALP [Catalytic activity/Vol] 95 U/L Normal 38 - 126 U/L AH ADM SS ALT No additional P-5'-P [Catalytic activity/Vol] 10 U/L Low 12 - 55 U/L AH ADM SS AST [Catalytic activity/Vol] 18 U/L Normal 8 - 34 U/L AH ADM SS Basophils (Bld) [#/Vol] 0.2 103/mcL Normal 0.0 - 0.3 10^3/mcL AH Workflow SS Basophils/100 WBC (Bld) 2.2 % Normal 0.0 - 2.5 % AH Workflow SS Bilirubin [Mass/Vol] 0.20 mg/dL Normal 0.20 - 1.20 mg/dL ADM SS Comment on above: Interpretive Data: U se of this assay is not recommended for patients undergoing treatment with eltrombopag due to the potential for falsely elevated results. Calcium [Mass/Vol] 9.7 mg/dL Normal 8.7 - 10. 4 mg/dL ADM SS Chloride [Moles/Vol] 103 mmol/L Normal 98 - 11 0 mEq/L ADM SS CO2 [Moles/Vol] 29 mmol/L Normal 22 - 32 mEq/L ADM SS Creatinine [Mass/Vol] 0.97 mg/dL Normal 0.60 - 1.40 mg/dL ADM SS Electrolyte Balance 5.0 mEq/L Normal 4.0 - 15 .0 mEq/L ADM SS Eosinophils (Bld) [#/Vol] 0.2 103/mcL Normal 0.0 - 0.7 10^3/mcL Workflow SS Eosinophils/100 WBC (Bld) 3.1 % Normal 0.0 - 6.0 % Workflow SS Erythrocyte distribution width (RBC) [Ratio] 16.2 % High 11.5 - 15.5 % Workflow SS GFR/1.73 sq M.predicted among blacks MDRD (S/P/Bld) [Vol rate/Area] ml/min/1.73sqm Invalid Interpretation Code ADM SS Comment on above: Interpretive Data: GFR Population mean for , Non- Americans Ages 20-29 = 116 mL/min/1.73 sq.m. Ages 30-39 = 107 mL/min/1.73 sq.m. Ages 40-49 = 99 mL/min/1.73 sq.m. Ages 50-59 = 93 mL/min/1.73 sq.m. Ages 60-69 = 85 mL/min/1.73 sq.m. Ages 70+ = 75 mL/min/1.73 sq.m. Chronic Kidney Disease: Less than 60 mL/min/1.73 square meters End Stage Renal Disease: Less than 15 mL/min/1.73 square meters GFR/1.73 sq M.predicted among non-blacks MDRD (S/P/Bld) [Vol rate/Area] ml/min/1.73sqm Invalid Interpretation Code ADM SS Comment on above: Interpretive Data: GFR Population mean for , Non- Americans Ages 20-29 = 116 mL/min/1.73 sq.m. Ages 30-39 = 107 mL/min/1.73 sq.m. Ages 40-49 = 99 mL/min/1.73 sq.m. Ages 50-59 = 93 mL/min/1.73 sq.m. Ages 60-69 = 85 mL/min/1.73 sq.m. Ages 70+ = 75 mL/min/1.73 sq.m. Chronic Kidney Disease: Less than 60 mL/min/1.73 square meters End Stage Renal Disease: Less than 15 mL/min/1.73 square meters Globulin 4.4 G/dL High 1.5 - 3.8 G/dL ADM SS Glucose [Mass/Vol] 239 mg/dL High 82 - 115 mg/dL ADM SS Hematocrit (Bld) [Volume fraction] 39.7 % Low 40.0 - 52.0 % Workflow SS Hemoglobin (Bld) [Mass/Vol] 13.2 G/dL Normal 13.0 - 17.5 G/dL AH Workflow SS Lymphocytes (Bld) [#/Vol] 1.7 103/mcL Normal 0.9 - 4.3 10^3/mcL Workflow SS Lymphocytes/100 WBC (Bld) 23.8 % Normal 20.0 - 40.0 % Workflow SS MCH (RBC) [Entitic mass] 28.4 pg Normal 27.0 - 33.0 pg AH Workflow SS MCHC 33.2 G/dL Normal 32.0 - 36.0 G/dL Workflow SS MCV (RBC) [Entitic vol] 85.6 fL Normal 81.0 - 100.0 fL Workflow SS Monocyte distribution width Auto (Bld) [Entitic vol] 19.16 1 Normal 0.00 - 20.00 Workflow SS Comment on above: Result Comment: For ED adult patients suspected of sepsis, MDW<=20.0 does not rule out sepsis or risk of sepsis Monocytes (Bld) [#/Vol] 0.5 103/mcL Normal 0.1 - 1.4 10^3/mcL AH Workflow SS Monocytes/100 WBC (Bld) 6.6 % Normal 2.0 - 13.0 % AH Workflow SS Neutrophils (Bld) [#/Vol] 4.6 103/mcL Normal 2.3 - 8.1 10^3/mcL AH Workflow SS Neutrophils/100 WBC (Bld) 64.3 % Normal 50.0 - 75.0 % AH Workflow SS Platelet mean volume (Bld) [Entitic vol] 8.3 fL Normal 6.4 - 10.5 fL AH Workflow SS Platelets (Bld) [#/Vol] 338 103/mcL Normal 150 - 450 10^3/mcL AH Workflow SS Potassium [Moles/Vol] 3.9 mmol/L Normal 3.5 - 5.0 mEq/L AH ADM SS Protein [Mass/Vol] 8.0 G/dL Normal 5.7 - 8.2 G/dL AH ADM SS Comment on above: Interpretive Data: * *Note - New Reference Range in effect 20 RBC (Bld) [#/Vol] 4.64 106/mcL Normal 4.50 - 6.0 0 10^6/mcL AH Workflow SS Sodium [Moles/Vol] 137 mmol/L Normal 136 - 145 mEq/L AH ADM SS Urea nitrogen [Mass/Vol] 18.0 mg/dL Normal 8.0 - 22.0 mg/dL AH ADM SS Urea nitrogen/Creatinine [Mass ratio] 18.6 ratio Normal 10.0 - 22.0 ratio AH ADM SS WBC (Bld) [#/Vol] 7.2 103/mcL Normal 4.5 - 10.8 10^3/mcL AH Workflow SS CBC panel Auto (Bld)on 11-27 Erythrocyte distribution width (RBC) [Ratio] 14.3 % Normal 11.5-14.5 [facility] Comment on above: Performed By: #### 3 040-3 #### PARIS Shelley ([id number]) [facility] ([facility]) [id number] [place] [address] 10184 Hematocrit (Bld) [Volume fraction] 33.3 % Low 41.0-52.0 [facility] Comment on above: Performed By: #### 3 040-3 #### PARIS Shelley ([id number]) [facility] ([facility]) [address] [place] [address] Hemoglobin (Bld) [Mass/Vol] 10.9 g/dL Low 13.5-17.5 [facility] Comment on above: Performed By: #### 3 040-3 #### PARIS Shelley ([id number]) [facility] ([facility]) [address] [place] [address] MCH (RBC) [Entitic mass] 27.9 pg Normal 26.0-34.0 [facility] Comment on above: Performed By: #### 3 040-3 #### PARIS Shelley ([id number]) [facility] ([facility]) [id number] [place] [address] 70444 MCHC (RBC) [Mass/Vol] 32.7 g/dL Normal 32.0-36.0 [facility] Comment on above: Performed By: #### 3 040-3 #### PARIS Shelley ([id number]) [facility] ([facility]) [address] [place] [address] 36375 MCV (RBC) [Entitic vol] 85 fL Normal 80-100 [facility] Comment on above: Performed By: #### 3 040-3 #### PARIS Shelley ([id number]) [facility] ([facility]) [address] [place] [address] 34182 Nucleated RBC/100 WBC (Bld) [Ratio] 0.0 /100 WBCs Normal 0.0-0.0 [facility] Comment on above: Performed By: #### 3 040-3 #### PARIS Shelley ([id number]) [facility] ([facility]) [address] [place] [address] 40378 Platelets (Bld) [#/Vol] 420 x10*3/uL Normal 150-450 [facility] Comment on above: Performed By: #### 3 040-3 #### PARIS Shelley ([id number]) [facility] ([facility]) [address] [place] [address] 82884 RBC (Bld) [#/Vol] 3.90 x10*6/uL Low 4.50-5.90 [facility] Comment on above: Performed By: #### 3 040-3 #### PARIS Shelley ([id number]) [facility] ([facility]) [address] [place] [address] WBC (Bld) [#/Vol] 7.1 x10*3/uL Normal 4.4-11.3 [facility] Comment on above: Performed By: #### 3 040-3 #### PARIS Shelley ([id number]) [facility] ([facility]) [id number] [place] [address] 45212 Comprehensive metabolic 2000 panelon 2023 Albumin BCP dye [Mass/Vol] 3.3 g/dL Low 3.4-5.0 [facility] Comment on above: Performed By: #### 3 040-3 #### PARIS Shelley ([id number]) [facility] ([facility]) [address] [place] [address] 65766 ALP [Catalytic activity/Vol] 91 U/L Normal 33-136 [facility] Comment on above: Performed By: #### 3 040-3 #### PARIS Shelley ([id number]) [facility] ([facility]) [address] [place] [address] 25392 ALT With P-5'-P [Catalytic activity/Vol] 6 U/L Low 10-52 [facility] Comment on above: Result Comment: Malik ents treated with Sulfasalazine may generate falsely decreased results for ALT. Performed By: #### 3 040-3 #### PARIS Shelley ([id number]) [facility] ([facility]) [address] [place] [address] Anion gap [Moles/Vol] 11 mmol/L Normal 10-20 [facility] Comment on above: Performed By: #### 3 040-3 #### PARIS Shelley ([id number]) [facility] ([facility]) [address] [place] [address] 22394 AST With P-5'-P [Catalytic activity/Vol] 8 U/L Low 9-39 [facility] Comment on above: Performed By: #### 3 040-3 #### PARIS Shelley ([id number]) [facility] ([facility]) [address] [place] [address] Bilirubin [Mass/Vol] 0.3 mg/dL Normal 0.0-1.2 [facility] Comment on above: Performed By: #### 3 040-3 #### PARIS Shelley ([id number]) [facility] ([facility]) [address] [place] [address] Calcium [Mass/Vol] 8.8 mg/dL Normal 8.6-10.6 [facility] Comment on above: Performed By: #### 3 040-3 #### PARIS Shelley ([id number]) [facility] ([facility]) [address] [place] [address] 14154 Chloride [Moles/Vol] 103 mmol/L Normal 98-107 [facility] Comment on above: Performed By: #### 3 040-3 #### PARIS Shelley ([id number]) [facility] ([facility]) [address] [place] [address] CO2 [Moles/Vol] 29 mmol/L Normal 21-32 [facility] Comment on above: Performed By: #### 3 040-3 #### PARIS Shelley ([id number]) [facility] ([facility]) [address] [place] [address] Creatinine [Mass/Vol] 0.85 mg/dL Normal 0.50-1.30 [facility] Comment on above: Performed By: #### 3 040-3 #### PARIS Shelley ([id number]) [facility] ([facility]) [address] [place] [address] GFR/1.73 sq M.predicted MDRD (S/P/Bld) [Vol rate/Area] mL/min/{1.73_m2} Normal >60 [facility] Comment on above: Result Comment: Calc ulations of estimated GFR are performed using the 2020 CKD-EPI Study Refit equation without the race variable for the IDMS-Traceable creatinine methods. https://jasn.asnjournals.org/content/early//ASN.82376 48143 Performed By: #### 3 040-3 #### PARIS Shelley ([id number]) [facility] ([facility]) [address] [place] [address] Glucose [Mass/Vol] 215 mg/dL High 74-99 [facility] Comment on above: Performed By: #### 3 040-3 #### PARIS Shelley ([id number]) [facility] ([facility]) [address] [place] [address] 76881 Potassium [Moles/Vol] 4.1 mmol/L Normal 3.5-5.3 [facility] Comment on above: Performed By: #### 3 040-3 #### PARIS Shelley ([id number]) [facility] ([facility]) [address] [place] [address] 17594 Protein [Mass/Vol] 7.4 g/dL Normal 6.4-8.2 [facility] Comment on above: Performed By: #### 3 040-3 #### PARIS PRICE L ([id number]) [facility] ([facility]) [address] [place] [address] Sodium [Moles/Vol] 139 mmol/L Normal 136-145 [facility] Comment on above: Performed By: #### 3 040-3 #### PARIS PRICE L ([id number]) [facility] ([facility]) [address] [place] [address] 71005 Urea nitrogen [Mass/Vol] 11 mg/dL Normal 6-23 [facility] Comment on above: Performed By: #### 3 040-3 #### PARIS PRICE L ([id number]) [facility] ([facility]) [address] [place] [address] 02814 Glucose Test strip manual (B ld) [Mass/Vol]on 2023 Glucose [Mass/Vol] 225 mg/dL High 74-99 [facility] Comment on above: Result Comment: Befo re Meal Performed By: #### 3 040-3 #### PARIS Shelley ([id number]) [facility] ([facility]) [address] [place] [address] 85520 Glucose [Mass/Vol] 297 mg/dL High 74-99 [facility] Comment on above: Performed By: #### 3 040-3 #### PARIS Shelley ([id number]) [facility] ([facility]) [address] [place] [address] 33195 Magnesiumon 2023 Magnesium [Mass/Vol] 1.96 mg/dL Normal 1.60-2.40 [facility] Comment on above: Performed By: #### 3 040-3 #### PARSI Shelley ([id number]) [facility] ([facility]) [address] [place] [address] 43658 Phosphateon 2023 Phosphate [Mass/Vol] 3.6 mg/dL Normal 2.5-4.9 [facility] Comment on above: Result Comment: The performance characteristics of phosphorus testing in heparinized plasma have been validated by the individual laboratory site where testing is performed. Testing on heparinized plasma is not approved by the FDA; however, such approval is not necessary. Performed By: #### 3 040-3 #### PARIS Shelley ([id number]) [facility] ([facility]) [id number] [place] [address] 83646 CBC panel Auto (Bld)on 11-26 Erythrocyte distribution width (RBC) [Ratio] 14.1 % Normal 11.5-14.5 [facility] Comment on above: Performed By: #### 2 4362-6 #### PARIS Shelley ([id number]) [facility] ([facility]) [address] [place] [address] 80268 Hematocrit (Bld) [Volume fraction] 32.3 % Low 41.0-52.0 [facility] Comment on above: Performed By: #### 2 4362-6 #### PARIS Shelley ([id number]) [facility] ([facility]) [address] [place] [address] 70769 Hemoglobin (Bld) [Mass/Vol] 10.4 g/dL Low 13.5-17.5 [facility] Comment on above: Performed By: #### 2 4362-6 #### PARIS Shelley ([id number]) [facility] ([facility]) [address] [place] [address] 72582 MCH (RBC) [Entitic mass] 27.9 pg Normal 26.0-34.0 [facility] Comment on above: Performed By: #### 2 4362-6 #### PARIS Shelley ([id number]) [facility] ([facility]) [address] [place] [address] 17511 MCHC (RBC) [Mass/Vol] 32.2 g/dL Normal 32.0-36.0 [facility] Comment on above: Performed By: #### 2 4362-6 #### PARIS Shelley ([id number]) [facility] ([facility]) [address] [place] [address] 36651 MCV (RBC) [Entitic vol] 87 fL Normal 80-100 [facility] Comment on above: Performed By: #### 2 4362-6 #### PARIS Shelley ([id number]) [facility] ([facility]) [address] [place] [address] 82570 Nucleated RBC/100 WBC (Bld) [Ratio] 0.0 /100 WBCs Normal 0.0-0.0 [facility] Comment on above: Performed By: #### 2 4362-6 #### PARIS Shelley ([id number]) [facility] ([facility]) [address] [place] [address] 86303 Platelets (Bld) [#/Vol] 438 x10*3/uL Normal 150-450 [facility] Comment on above: Performed By: #### 2 4362-6 #### PARIS Shelley ([id number]) [facility] ([facility]) [address] [place] [address] RBC (Bld) [#/Vol] 3.73 x10*6/uL Low 4.50-5.90 [facility] Comment on above: Performed By: #### 2 4362-6 #### PARIS Shelley ([id number]) [facility] ([facility]) [address] [place] [address] 96238 WBC (Bld) [#/Vol] 6.5 x10*3/uL Normal 4.4-11.3 [facility] Comment on above: Performed By: #### 2 4362-6 #### PARIS Shelley ([id number]) [facility] ([facility]) [address] [place] [address] 44553 Comprehensive metabolic 2000 panelon 11-27-2023 Albumin BCP dye [Mass/Vol] 3.1 g/dL Low 3.4-5.0 [facility] Comment on above: Performed By: #### 2 4362-6 #### PARIS Shelley ([id number]) [facility] ([facility]) [address] [place] [address] 14196 ALP [Catalytic activity/Vol] 94 U/L Normal 33-136 [facility] Comment on above: Performed By: #### 2 4362-6 #### PARIS Shelley ([id number]) [facility] ([facility]) [address] [place] [address] 00964 ALT With P-5'-P [Catalytic activity/Vol] 7 U/L Low 10-52 [facility] Comment on above: Result Comment: Malik ents treated with Sulfasalazine may generate falsely decreased results for ALT. Performed By: #### 2 4362-6 #### PARIS Shelley ([id number]) [facility] ([facility]) [address] [place] [address] Anion gap [Moles/Vol] 14 mmol/L Normal 10-20 [facility] Comment on above: Performed By: #### 2 4362-6 #### PARIS Shelley ([id number]) [facility] ([facility]) [address] [place] [address] AST With P-5'-P [Catalytic activity/Vol] 9 U/L Normal 9-39 [facility] Comment on above: Performed By: #### 2 4362-6 #### PARIS Shelley ([id number]) [facility] ([facility]) [address] [place] [address] 07959 Bilirubin [Mass/Vol] 0.4 mg/dL Normal 0.0-1.2 [facility] Comment on above: Performed By: #### 2 4362-6 #### PARIS Shelley ([id number]) [facility] ([facility]) [address] [place] [address] 13388 Calcium [Mass/Vol] 8.5 mg/dL Low 8.6-10.6 [facility] Comment on above: Performed By: #### 2 4362-6 #### PARIS Shelley ([id number]) [facility] ([facility]) [address] [place] [address] Chloride [Moles/Vol] 98 mmol/L Normal 98-107 [facility] Comment on above: Performed By: #### 2 4362-6 #### PARIS Shelley ([id number]) [facility] ([facility]) [address] [place] [address] CO2 [Moles/Vol] 27 mmol/L Normal 21-32 [facility] Comment on above: Performed By: #### 2 4362-6 #### PARIS Shelley ([id number]) [facility] ([facility]) [address] [place] [address] 90606 Creatinine [Mass/Vol] 0.76 mg/dL Normal 0.50-1.30 [facility] Comment on above: Performed By: #### 2 4362-6 #### PARIS Shelley ([id number]) [facility] ([facility]) [address] [place] [address] GFR/1.73 sq M.predicted MDRD (S/P/Bld) [Vol rate/Area] mL/min/{1.73_m2} Normal >60 [facility] Comment on above: Result Comment: Calc ulations of estimated GFR are performed using the 2020 CKD-EPI Study Refit equation without the race variable for the IDMS-Traceable creatinine methods. https://jasn.asnjournals.org/content/early//ASN.75893 58857 Performed By: #### 2 4362-6 #### PARIS Shelley ([id number]) [facility] ([facility]) [address] [place] [address] 15821 Glucose [Mass/Vol] 310 mg/dL High 74-99 [facility] Comment on above: Performed By: #### 2 4362-6 #### PARIS PRICE L ([id number]) [facility] ([facility]) [address] [place] [address] 50000 Potassium [Moles/Vol] 4.7 mmol/L Normal 3.5-5.3 [facility] Comment on above: Performed By: #### 2 4362-6 #### PARIS PRIEC L ([id number]) [facility] ([facility]) [address] [place] [address] 25795 Protein [Mass/Vol] 6.6 g/dL Normal 6.4-8.2 [facility] Comment on above: Performed By: #### 2 4362-6 #### PARIS PRICE L ([id number]) [facility] ([facility]) [address] [place] [address] 68266 Sodium [Moles/Vol] 134 mmol/L Low 136-145 [facility] Comment on above: Performed By: #### 2 4362-6 #### PARIS PRICE L ([id number]) [facility] ([facility]) [address] [place] [address] 80528 Urea nitrogen [Mass/Vol] 10 mg/dL Normal 6-23 [facility] Comment on above: Performed By: #### 2 4362-6 #### PARIS Shelley ([id number]) [facility] ([facility]) [address] [place] [address] 90290 Glucose Test strip manual (B ld) [Mass/Vol]on 11-27-2023 Glucose [Mass/Vol] 271 mg/dL High [address] [place] [address] Comment on above: Performed By: #### 2 4362-6 #### PARIS Shelley ([id number]) [facility] ([facility]) [address] [place] [address] 40015 Glucose [Mass/Vol] 361 mg/dL High [address] [place] [address] Comment on above: Performed By: #### 2 4362-6 #### PARIS Shelley ([id number]) [facility] ([facility]) [address] [place] [address] 54508 Glucose [Mass/Vol] 295 mg/dL High [address] [place] [address] Comment on above: Performed By: #### 2 4362-6 #### PARIS Shelley ([id number]) [facility] ([facility]) [address] [place] [address] 39123 Glucose [Mass/Vol] 316 mg/dL High [address] [place] [address] Comment on above: Performed By: #### 2 4362-6 #### PARIS Shelley ([id number]) [facility] ([facility]) [address] [place] [address] 62561 Magnesiumon 11-27-2023 Magnesium [Mass/Vol] 1.86 mg/dL Normal 1.60-2.40 [facility] Comment on above: Performed By: #### 2 4362-6 #### PARIS Shelley ([id number]) [facility] ([facility]) [address] [place] [address] 27867 Phosphateon 11-27-2023 Phosphate [Mass/Vol] 3.1 mg/dL Normal 2.5-4.9 [facility] Comment on above: Result Comment: The performance characteristics of phosphorus testing in heparinized plasma have been validated by the individual laboratory site where testing is performed. Testing on heparinized plasma is not approved by the FDA; however, such approval is not necessary. Performed By: #### 2 4362-6 #### PARIS Shelley ([id number]) [facility] ([facility]) [address] [place] [address] 21463 Bilirubin.glucuronidated+[place] irubin.albumin boundon 11-26-2023 Bilirubin.direct [Mass/Vol] 0.1 mg/dL Normal 0.0-0.3 [facility] Comment on above: Performed By: #### 1 9123-9 #### PARIS Shelley ([id number]) [facility] ([facility]) [address] [place] [address] 14595 CBC W Auto Differential pane l (Bld)on 11-26-2023 Basophils (Bld) [#/Vol] 0.07 x10*3/uL Normal 0.00-0.10 [facility] Comment on above: Performed By: #### 1 9123-9 #### PARIS Shelley ([id number]) [facility] ([facility]) [address] [place] [address] 17103 Basophils/100 WBC (Bld) 0.9 % Normal 0.0-2.0 [facility] Comment on above: Performed By: #### 1 9123-9 #### PARIS Shelley ([id number]) [facility] ([facility]) [address] [place] [address] 01354 Eosinophils (Bld) [#/Vol] 0.23 x10*3/uL Normal 0.00-0.70 [facility] Comment on above: Performed By: #### 1 9123-9 #### PARIS Shelley ([id number]) [facility] ([facility]) [address] [place] [address] 65321 Eosinophils/100 WBC (Bld) 2.9 % Normal 0.0-6.0 [facility] Comment on above: Performed By: #### 1 9123-9 #### PARIS Shelley ([id number]) [facility] ([facility]) [address] [place] [address] [id number] Erythrocyte distribution width (RBC) [Ratio] 14.1 % Normal 11.5-14.5 [facility] Comment on above: Performed By: #### 1 9123-9 #### PARIS Shelley ([id number]) [facility] ([facility]) [address] [place] [id number] Hematocrit (Bld) [Volume fraction] 31.2 % Low 41.0-52.0 [facility] Comment on above: Performed By: #### 1 9123-9 #### PARIS Shelley ([id number]) [facility] ([facility]) [address] [place] [address] [id number] Hemoglobin (Bld) [Mass/Vol] 10.1 g/dL Low 13.5-17.5 [facility] Comment on above: Performed By: #### 1 9123-9 #### PARIS Shelley ([id number]) [facility] ([facility]) [address] [place] [address] 15533 Immature granulocytes (Bld) [#/Vol] 0.04 x10*3/uL Normal 0.00-0.70 [facility] Comment on above: Performed By: #### 1 9123-9 #### PARIS Shelley ([id number]) [facility] ([facility]) [address] [place] [address] 58404 Immature granulocytes/100 WBC (Bld) 0.5 % Normal 0.0-0.9 [facility] Comment on above: Result Comment: Mesha ture Granulocyte Count (IG) includes promyelocytes, myelocytes and metamyelocytes but does not include bands. Percent differential counts (%) should be interpreted in the context of the absolute cell counts (cells/UL). Performed By: #### 1 9123-9 #### PARIS Shelley ([id number]) [facility] ([facility]) [address] [place] [address] 15179 Lymphocytes (Bld) [#/Vol] 1.35 x10*3/uL Normal 1.20-4.80 [facility] Comment on above: Performed By: #### 1 9123-9 #### PARIS Shelley ([id number]) [facility] ([facility]) [address] [place] [address] 47484 Lymphocytes/100 WBC (Bld) 17.0 % Normal 13.0-44.0 [facility] Comment on above: Performed By: #### 1 9123-9 #### PARIS Shelley ([id number]) [facility] ([facility]) [id number] [place] [address] 34394 MCH (RBC) [Entitic mass] 28.1 pg Normal 26.0-34.0 [facility] Comment on above: Performed By: #### 1 9123-9 #### PARIS Shelley ([id number]) [facility] ([facility]) [address] [place] [address] 03711 MCHC (RBC) [Mass/Vol] 32.4 g/dL Normal 32.0-36.0 [facility] Comment on above: Performed By: #### 1 9123-9 #### PARIS Shelley ([id number]) [facility] ([facility]) [address] [place] [address] 15524 MCV (RBC) [Entitic vol] 87 fL Normal 80-100 [facility] Comment on above: Performed By: #### 1 9123-9 #### PARIS Shelley ([id number]) [facility] ([facility]) [address] [place] [address] 48638 Monocytes (Bld) [#/Vol] 0.61 x10*3/uL Normal 0.10-1.00 [facility] Comment on above: Performed By: #### 1 9123-9 #### PARIS Shelley ([id number]) [facility] ([facility]) [address] [place] [address] 83763 Monocytes/100 WBC (Bld) 7.7 % Normal 2.0-10.0 [facility] Comment on above: Performed By: #### 1 9123-9 #### PARIS Shelley ([id number]) [facility] ([facility]) [address] [place] [address] Neutrophils (Bld) [#/Vol] 5.62 x10*3/uL Normal 1.20-7.70 [facility] Comment on above: Result Comment: Perc ent differential counts (%) should be interpreted in the context of the absolute cell counts (cells/uL). Performed By: #### 1 9123-9 #### PARIS Shelley ([id number]) [facility] ([facility]) [address] [place] [address] Neutrophils/100 WBC (Bld) 71.0 % Normal 40.0-80.0 [facility] Comment on above: Performed By: #### 1 9123-9 #### PARIS Shelley ([id number]) [facility] ([facility]) [address] [place] [address] 36897 Nucleated RBC/100 WBC (Bld) [Ratio] 0.0 /100 WBCs Normal 0.0-0.0 [facility] Comment on above: Performed By: #### 1 9123-9 #### PARIS Shelley ([id number]) [facility] ([facility]) [address] [place] [address] Platelets (Bld) [#/Vol] 392 x10*3/uL Normal 150-450 [facility] Comment on above: Performed By: #### 1 9123-9 #### PARIS Shelley ([id number]) [facility] ([facility]) [address] [place] [address] RBC (Bld) [#/Vol] 3.60 x10*6/uL Low 4.50-5.90 [facility] Comment on above: Performed By: #### 1 9123-9 #### PARIS Shelley ([id number]) [facility] ([facility]) [address] [place] [address] WBC (Bld) [#/Vol] 7.9 x10*3/uL Normal 4.4-11.3 [facility] Comment on above: Performed By: #### 1 9123-9 #### PARIS Shelley ([id number]) [facility] ([facility]) [address] [place] [address] Comprehensive metabolic 2000 panelon 11-26-2023 Albumin BCP dye [Mass/Vol] 3.0 g/dL Low 3.4-5.0 [facility] Comment on above: Performed By: #### 1 9123-9 #### PARIS Shelley ([id number]) [facility] ([facility]) [address] [place] [address] ALP [Catalytic activity/Vol] 89 U/L Normal 33-136 [facility] Comment on above: Performed By: #### 1 9123-9 #### PARIS Shelley ([id number]) [facility] ([facility]) [address] [place] [address] 72680 ALT With P-5'-P [Catalytic activity/Vol] 6 U/L Low 10-52 [facility] Comment on above: Result Comment: Malik ents treated with Sulfasalazine may generate falsely decreased results for ALT. Performed By: #### 1 9123-9 #### PARIS Shelley ([id number]) [facility] ([facility]) [address] [place] [address] Anion gap [Moles/Vol] 13 mmol/L Normal 10-20 [facility] Comment on above: Performed By: #### 1 9123-9 #### PARIS Shelley ([id number]) [facility] ([facility]) [address] [place] [address] AST With P-5'-P [Catalytic activity/Vol] 8 U/L Low 9-39 [facility] Comment on above: Performed By: #### 1 9123-9 #### PARIS Shelley ([id number]) [facility] ([facility]) [address] [place] [address] Bilirubin [Mass/Vol] 0.4 mg/dL Normal 0.0-1.2 [facility] Comment on above: Performed By: #### 1 9123-9 #### PARIS PRICE L ([id number]) [facility] ([facility]) [address] [place] [address] Calcium [Mass/Vol] 8.9 mg/dL Normal 8.6-10.6 [facility] Comment on above: Performed By: #### 1 9123-9 #### PARIS PRICE L ([id number]) [facility] ([facility]) [address] [place] [address] 58065 Chloride [Moles/Vol] 100 mmol/L Normal 98-107 [facility] Comment on above: Performed By: #### 1 9123-9 #### PARIS PRICE L ([id number]) [facility] ([facility]) [address] [place] [address] CO2 [Moles/Vol] 28 mmol/L Normal 21-32 [facility] Comment on above: Performed By: #### 1 9123-9 #### PARIS PRICE L ([id number]) [facility] ([facility]) [address] [place] [address] Creatinine [Mass/Vol] 0.81 mg/dL Normal 0.50-1.30 [facility] Comment on above: Performed By: #### 1 9123-9 #### PARIS PRICE L ([id number]) [facility] ([facility]) [address] [place] [address] 57160 GFR/1.73 sq M.predicted MDRD (S/P/Bld) [Vol rate/Area] mL/min/{1.73_m2} Normal >60 [facility] Comment on above: Result Comment: Calc ulations of estimated GFR are performed using the 2020 CKD-EPI Study Refit equation without the race variable for the IDMS-Traceable creatinine methods. https://jasn.asnjournals.org/content//ASN.92582 81519 Performed By: #### 1 9123-9 #### PARIS Shelley ([id number]) [facility] ([facility]) [address] [place] [address] Glucose [Mass/Vol] 147 mg/dL High 74-99 [facility] Comment on above: Performed By: #### 1 9123-9 #### PARIS Shelley ([id number]) [facility] ([facility]) [address] [place] [address] 96089 Potassium [Moles/Vol] 3.8 mmol/L Normal 3.5-5.3 [facility] Comment on above: Performed By: #### 1 9123-9 #### PARIS Shelley ([id number]) [facility] ([facility]) [address] [place] [address] 40800 Protein [Mass/Vol] 6.9 g/dL Normal 6.4-8.2 [facility] Comment on above: Performed By: #### 1 9123-9 #### PARIS Shelley ([id number]) [facility] ([facility]) [address] [place] [address] 14524 Sodium [Moles/Vol] 137 mmol/L Normal 136-145 [facility] Comment on above: Performed By: #### 1 9123-9 #### PARIS Shelley ([id number]) [facility] ([facility]) [address] [place] [address] 23020 Urea nitrogen [Mass/Vol] 11 mg/dL Normal 6-23 [facility] Comment on above: Performed By: #### 1 9123-9 #### PARIS Shelley ([id number]) [facility] ([facility]) [address] [place] [address] 98813 Glucose Test strip manual (B ld) [Mass/Vol]on 11-26-2023 Glucose [Mass/Vol] 376 mg/dL High 74-99 [facility] Comment on above: Performed By: #### 2 4362-6 #### PARIS Shelley ([id number]) [facility] ([facility]) [address] [place] [address] 80236 Glucose [Mass/Vol] 178 mg/dL High 74-99 [facility] Comment on above: Performed By: #### 1 9123-9 #### PARIS Shelley ([id number]) [facility] ([facility]) [address] [place] [address] Magnesiumon 11-26-2023 Magnesium [Mass/Vol] 1.89 mg/dL Normal 1.60-2.40 [facility] Comment on above: Performed By: #### 1 9123-9 #### PARIS Shelley ([id number]) [facility] ([facility]) [address] [place] [address] 52684 Phosphateon 11-26-2023 Phosphate [Mass/Vol] 3.8 mg/dL Normal 2.5-4.9 [facility] Comment on above: Result Comment: The performance characteristics of phosphorus testing in heparinized plasma have been validated by the individual laboratory site where testing is performed. Testing on heparinized plasma is not approved by the FDA; however, such approval is not necessary. Performed By: #### 1 9123-9 #### PARIS Shelley ([id number]) [facility] ([facility]) [address] [place] [address] 36220 CBC panel Auto (Bld)on 11-24 Erythrocyte distribution width (RBC) [Ratio] 14.2 % Normal 11.5-14.5 [facility] Comment on above: Performed By: #### 3 4529-8 #### PARIS Shelley ([id number]) [facility] ([facility]) [address] [place] [address] 20799 Hematocrit (Bld) [Volume fraction] 33.6 % Low 41.0-52.0 [facility] Comment on above: Performed By: #### 3 4529-8 #### PARIS Shelley ([id number]) [facility] ([facility]) [address] [place] [address] 54986 Hemoglobin (Bld) [Mass/Vol] 10.5 g/dL Low 13.5-17.5 [facility] Comment on above: Performed By: #### 3 4529-8 #### PARIS Shelley ([id number]) [facility] ([facility]) [address] [place] [address] 30654 MCH (RBC) [Entitic mass] 27.9 pg Normal 26.0-34.0 [facility] Comment on above: Performed By: #### 3 4529-8 #### PARIS Shelley ([id number]) [facility] ([facility]) [address] [place] [address] 72837 MCHC (RBC) [Mass/Vol] 31.3 g/dL Low 32.0-36.0 [facility] Comment on above: Performed By: #### 3 4529-8 #### PARIS Shelley ([id number]) [facility] ([facility]) [address] [place] [address] 08386 MCV (RBC) [Entitic vol] 89 fL Normal 80-100 [facility] Comment on above: Performed By: #### 3 4529-8 #### PARIS Shelley ([id number]) [facility] ([facility]) [address] [place] [address] 42326 Nucleated RBC/100 WBC (Bld) [Ratio] 0.0 /100 WBCs Normal 0.0-0.0 [facility] Comment on above: Performed By: #### 3 4529-8 #### PARIS Shelley ([id number]) [facility] ([facility]) [address] [place] [address] 00717 Platelets (Bld) [#/Vol] 435 x10*3/uL Normal 150-450 [facility] Comment on above: Performed By: #### 3 4529-8 #### PARIS Shelley ([id number]) [facility] ([facility]) [address] [place] [address] 58556 RBC (Bld) [#/Vol] 3.77 x10*6/uL Low 4.50-5.90 [facility] Comment on above: Performed By: #### 3 4529-8 #### PARIS Shelley ([id number]) [facility] ([facility]) [address] [place] [address] WBC (Bld) [#/Vol] 8.4 x10*3/uL Normal 4.4-11.3 [facility] Comment on above: Performed By: #### 3 4529-8 #### PARIS Shelley ([id number]) [facility] ([facility]) [id number] [place] [address] 25678 Comprehensive metabolic 2000 panelon 11-25-2023 Albumin BCP dye [Mass/Vol] 3.1 g/dL Low 3.4-5.0 [facility] Comment on above: Performed By: #### 3 4529-8 #### PARIS Shelley ([id number]) [facility] ([facility]) [address] [place] [address] 08534 ALP [Catalytic activity/Vol] 101 U/L Normal 33-136 [facility] Comment on above: Performed By: #### 3 4529-8 #### PARIS Shelley ([id number]) [facility] ([facility]) [address] [place] [address] 38501 ALT With P-5'-P [Catalytic activity/Vol] 9 U/L Low 10-52 [facility] Comment on above: Result Comment: Malik ents treated with Sulfasalazine may generate falsely decreased results for ALT. Performed By: #### 3 4529-8 #### PARIS Shelley ([id number]) [facility] ([facility]) [id number] [place] [address] 79951 Anion gap [Moles/Vol] 13 mmol/L Normal 10-20 [facility] Comment on above: Performed By: #### 3 4529-8 #### PARIS Shelley ([id number]) [facility] ([facility]) [address] [place] [address] 46921 AST With P-5'-P [Catalytic activity/Vol] 10 U/L Normal 9-39 [facility] Comment on above: Performed By: #### 3 4529-8 #### PARIS Shelley ([id number]) [facility] ([facility]) [address] [place] [address] Bilirubin [Mass/Vol] 0.4 mg/dL Normal 0.0-1.2 [facility] Comment on above: Performed By: #### 3 4529-8 #### PARIS Shelley ([id number]) [facility] ([facility]) [address] [place] [address] Calcium [Mass/Vol] 8.9 mg/dL Normal 8.6-10.6 [facility] Comment on above: Performed By: #### 3 4529-8 #### PARIS Shelley ([id number]) [facility] ([facility]) [address] [place] [address] Chloride [Moles/Vol] 97 mmol/L Low 98-107 [facility] Comment on above: Performed By: #### 3 4529-8 #### PARIS Shelley ([id number]) [facility] ([facility]) [address] [place] [address] CO2 [Moles/Vol] 30 mmol/L Normal 21-32 [facility] Comment on above: Performed By: #### 3 4529-8 #### PARIS Shelley ([id number]) [facility] ([facility]) [address] [place] [address] Creatinine [Mass/Vol] 0.84 mg/dL Normal 0.50-1.30 [facility] Comment on above: Performed By: #### 3 4529-8 #### PARIS PRICE L ([id number]) [facility] ([facility]) [address] [place] [address] GFR/1.73 sq M.predicted MDRD (S/P/Bld) [Vol rate/Area] mL/min/{1.73_m2} Normal >60 [facility] Comment on above: Result Comment: Calc ulations of estimated GFR are performed using the 2020 CKD-EPI Study Refit equation without the race variable for the IDMS-Traceable creatinine methods. https://jasn.asnjournals.org/content//ASN.77185 43677 Performed By: #### 3 4529-8 #### PARIS Shelley ([id number]) [facility] ([facility]) [address] [place] [address] Glucose [Mass/Vol] 199 mg/dL High 74-99 [facility] Comment on above: Performed By: #### 3 4529-8 #### PARIS Shelley ([id number]) [facility] ([facility]) [address] [place] [address] 25603 Potassium [Moles/Vol] 4.1 mmol/L Normal 3.5-5.3 [facility] Comment on above: Performed By: #### 3 4529-8 #### PARIS Shelley ([id number]) [facility] ([facility]) [address] [place] [address] 28051 Protein [Mass/Vol] 7.4 g/dL Normal 6.4-8.2 [facility] Comment on above: Performed By: #### 3 4529-8 #### PARIS Shelley ([id number]) [facility] ([facility]) [address] [place] [address] 63953 Sodium [Moles/Vol] 136 mmol/L Normal 136-145 [facility] Comment on above: Performed By: #### 3 4529-8 #### PARIS Shelley ([id number]) [facility] ([facility]) [address] [place] [address] 05550 Urea nitrogen [Mass/Vol] 12 mg/dL Normal 6-23 [facility] Comment on above: Performed By: #### 3 4529-8 #### PARIS Shelley ([id number]) [facility] ([facility]) [id number] [place] [address] 00401 Glucose Test strip manual (B ld) [Mass/Vol]on 11-25-2023 Glucose [Mass/Vol] 113 mg/dL High 74-99 [facility] Comment on above: Performed By: #### 1 9123-9 #### PARIS Shelley ([id number]) [facility] ([facility]) [address] [place] [address] 76938 Glucose [Mass/Vol] 223 mg/dL High -[address] [place] [address] Comment on above: Performed By: #### 1 9123-9 #### PARIS hSelley ([id number]) [facility] ([facility]) [address] [place] [address] 26123 Glucose [Mass/Vol] 222 mg/dL High -[address] [place] [address] Comment on above: Performed By: #### 1 9123-9 #### PARIS Shelley ([id number]) [facility] ([facility]) [address] [place] [address] 59505 Glucose [Mass/Vol] 234 mg/dL High [address] [place] [address] Comment on above: Performed By: #### 3 4529-8 #### PARIS Shelley ([id number]) [facility] ([facility]) [address] [place] [address] 33156 Magnesiumon 11-25-2023 Magnesium [Mass/Vol] 1.91 mg/dL Normal 1.60-2.40 [facility] Comment on above: Performed By: #### 3 4529-8 #### PARIS Shelley ([id number]) [facility] ([facility]) [id number] [place] [address] 10113 Phosphateon 11-25-2023 Phosphate [Mass/Vol] 3.3 mg/dL Normal 2.5-4.9 [facility] Comment on above: Result Comment: The performance characteristics of phosphorus testing in heparinized plasma have been validated by the individual laboratory site where testing is performed. Testing on heparinized plasma is not approved by the FDA; however, such approval is not necessary. Performed By: #### 3 4529-8 #### PARIS Shelley ([id number]) [facility] ([facility]) [address] [place] [address] 72907 Triacylglycerol lipaseon Lipase [Catalytic activity/Vol] 19 U/L Normal 9-82 [facility] Comment on above: Order Comment: Venip uncture immediately after or during the administration of Metamizole may lead to falsely low results. Testing should be performed immediately prior to Metamizole dosing. Performed By: #### 1 9123-9 #### PARIS Shelley ([id number]) [facility] ([facility]) [address] [place] [address] 06859 CBC panel Auto (Bld)on 11-23 Erythrocyte distribution width (RBC) [Ratio] 14.3 % Normal 11.5-14.5 [facility] Comment on above: Performed By: #### 4 548-4 #### PARIS Shelley ([id number]) [facility] ([facility]) [address] [place] [address] 89574 Hematocrit (Bld) [Volume fraction] 30.7 % Low 41.0-52.0 [facility] Comment on above: Performed By: #### 4 548-4 #### PARIS Shelley ([id number]) [facility] ([facility]) [address] [place] [address] 15803 Hemoglobin (Bld) [Mass/Vol] 9.8 g/dL Low 13.5-17.5 [facility] Comment on above: Performed By: #### 4 548-4 #### PARIS Shelley ([id number]) [facility] ([facility]) [address] [place] [address] 06695 MCH (RBC) [Entitic mass] 28.5 pg Normal 26.0-34.0 [facility] Comment on above: Performed By: #### 4 548-4 #### PARIS Shelley ([id number]) [facility] ([facility]) [address] [place] [address] 92921 MCHC (RBC) [Mass/Vol] 31.9 g/dL Low 32.0-36.0 [facility] Comment on above: Performed By: #### 4 548-4 #### PARIS Shelley ([id number]) [facility] ([facility]) [address] [place] [address] 02009 MCV (RBC) [Entitic vol] 89 fL Normal 80-100 [facility] Comment on above: Performed By: #### 4 548-4 #### PARIS Shelley ([id number]) [facility] ([facility]) [address] [place] [address] 85631 Nucleated RBC/100 WBC (Bld) [Ratio] 0.0 /100 WBCs Normal 0.0-0.0 [facility] Comment on above: Performed By: #### 4 548-4 #### PARIS Shelley ([id number]) [facility] ([facility]) [address] [place] [address] 74852 Platelets (Bld) [#/Vol] 369 x10*3/uL Normal 150-450 [facility] Comment on above: Performed By: #### 4 548-4 #### PARIS Shelley ([id number]) [facility] ([facility]) [address] [place] [address] 81805 RBC (Bld) [#/Vol] 3.44 x10*6/uL Low 4.50-5.90 [facility] Comment on above: Performed By: #### 4 548-4 #### PARIS Shelley ([id number]) [facility] ([facility]) [address] [place] [address] 35371 WBC (Bld) [#/Vol] 9.3 x10*3/uL Normal 4.4-11.3 [facility] Comment on above: Performed By: #### 4 548-4 #### PARIS Shelley ([id number]) [facility] ([facility]) [address] [place] [address] 37180 Comprehensive metabolic 2000 panelon 11-24-2023 Albumin BCP dye [Mass/Vol] 2.8 g/dL Low 3.4-5.0 [facility] [facility] Comment on above: Performed By: #### 4 548-4 #### PARIS Shelley ([id number]) [facility] ([facility]) [address] [place] [address] ALP [Catalytic activity/Vol] 102 U/L Normal 33-136 [facility] Comment on above: Performed By: #### 4 548-4 #### PARIS Shelley ([id number]) [facility] ([facility]) [address] [place] [address] ALT With P-5'-P [Catalytic activity/Vol] 10 U/L Normal 10-52 [facility] Comment on above: Result Comment: Malik ents treated with Sulfasalazine may generate falsely decreased results for ALT. Performed By: #### 4 548-4 #### PARIS Shelley ([id number]) [facility] ([facility]) [address] [place] [address] Anion gap [Moles/Vol] 12 mmol/L Normal 10-20 [facility] Comment on above: Performed By: #### 4 548-4 #### PARIS Shelley ([id number]) [facility] ([facility]) [address] [place] [address] AST With P-5'-P [Catalytic activity/Vol] 8 U/L Low 9-39 [facility] Comment on above: Performed By: #### 4 548-4 #### PARIS Shelley ([id number]) [facility] ([facility]) [address] [place] [address] Bilirubin [Mass/Vol] 0.4 mg/dL Normal 0.0-1.2 [facility] Comment on above: Performed By: #### 4 548-4 #### PARIS Shelley ([id number]) [facility] ([facility]) [address] [place] [address] Calcium [Mass/Vol] 8.0 mg/dL Low 8.6-10.6 [facility] Comment on above: Performed By: #### 4 548-4 #### PARIS Shelley ([id number]) [facility] ([facility]) [address] [place] [address] Chloride [Moles/Vol] 101 mmol/L Normal 98-107 [facility] Comment on above: Performed By: #### 4 548-4 #### PARIS GIORDANOER L ([id number]) [facility] ([facility]) [address] [place] [address] CO2 [Moles/Vol] 26 mmol/L Normal 21-32 [facility] Comment on above: Performed By: #### 4 548-4 #### PARIS PRICE L ([id number]) [facility] ([facility]) [address] [place] [address] Creatinine [Mass/Vol] 0.74 mg/dL Normal 0.50-1.30 [facility] Comment on above: Performed By: #### 4 548-4 #### PARIS Shelley ([id number]) [facility] ([facility]) [address] [place] [address] GFR/1.73 sq M.predicted MDRD (S/P/Bld) [Vol rate/Area] mL/min/{1.73_m2} Normal >60 [facility] Comment on above: Result Comment: Calc ulations of estimated GFR are performed using the 2020 CKD-EPI Study Refit equation without the race variable for the IDMS-Traceable creatinine methods. https://jasn.asnjournals.org/content//ASN.55098 48625 Performed By: #### 4 548-4 #### PARIS PRICE L ([id number]) [facility] ([facility]) [address] [place] [address] Glucose [Mass/Vol] 250 mg/dL High 74-99 [facility] Comment on above: Performed By: #### 4 548-4 #### PARIS PRICE L ([id number]) [facility] ([facility]) [address] [place] [address] Potassium [Moles/Vol] 3.9 mmol/L Normal 3.5-5.3 [facility] Comment on above: Performed By: #### 4 548-4 #### PARIS SCHMOTZER L ([id number]) [facility] ([facility]) [address] [place] [address] Protein [Mass/Vol] 6.4 g/dL Normal 6.4-8.2 [facility] Comment on above: Performed By: #### 4 548-4 #### PARIS SCHMOTZER L ([id number]) [facility] ([facility]) [address] [place] [address] Sodium [Moles/Vol] 135 mmol/L Low 136-145 [facility] Comment on above: Performed By: #### 4 548-4 #### PARIS SCHMOTZER L ([id number]) [facility] ([facility]) [id number] [place] [address] Urea nitrogen [Mass/Vol] 11 mg/dL Normal 6-23 [facility] Comment on above: Performed By: #### 4 548-4 #### PARIS SCHMOTZER L ([id number]) [facility] ([facility]) [address] [place] [address] ENDOSCOPIC ULTRASOUND (UPPER )on 11-24-2023 ENDOSCOPIC ULTRASOUND (UPPER) Table formatting from the original result was not included. Impression Round, heterogeneous and hypoechoic mass measuring 30 mm x 33 mm with well-defined margins was visualized in the head of the pancreas; fine needle biopsy passes were taken. An adequate sample was obtained. A sample was sent for histology analysis. Cytology analysis was performed. Onsite qa test analyst was present and cytology results were atypical cells. Three round and hypoechoic nodes were observed at the perihepatic abdominal station with well-defined margins. Pathological lymphadenopathy was present Findings Round, heterogeneous and hypoechoic mass measuring 30 mm x 33 mm with well-defined margins was visualized in the head of the pancreas; Large 1cm calcification with shadowing seen within lesion. Small vascularity seen in mass. successful fine needle biopsy passes were taken with a 22 gauge needle using a transduodenal approach guided by Doppler. An adequate sample was obtained. A sample was sent for histology analysis. Cytology analysis was performed. Onsite qa test analyst was present and cytology results were preliminarily malignant. 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 Three round and hypoechoic nodes were observed at the perihepatic abdominal station with well-defined margins. Pathological lymphadenopathy was present. Small ascites seen. Recommendation Await pathology results Follow up with primary raw scales operator Await cytology Indication Mass of head of pancreas (HHS-HCC) Staff Staff Role No Staff Documented Medications See Anesthesia Record. Preprocedure A history and physical has been performed, and patient medication allergies have been reviewed. The patient's tolerance of previous anesthesia has been reviewed. The risks and benefits of the procedure and the sedation options and risks were discussed with the patient. All questions were answered and informed consent obtained. Details of the Procedure The patient underwent monitored anesthesia care, which was administered by an anesthesia professional. The patient's blood pressure, heart rate, level of consciousness, oxygen, respirations, ECG and ETCO2 were monitored throughout the procedure. The linear scope was introduced through the mouth and advanced to the second part of the duodenum. The patient experienced no blood loss. The procedure was not difficult. The patient tolerated the procedure well. There were no apparent adverse events. Events Procedure Events Event Event Time Specimens No specimens collected Procedure Location [address] [address] Referring Provider Generic Provider Scanning No address on file Procedure Provider Mandie Gold MD [facility] Glucose Test strip manual (B ld) [Mass/Vol]on 11-24-2023 Glucose [Mass/Vol] 322 mg/dL High [address] [place] [address] Comment on above: Performed By: #### 3 4529-8 #### PARIS Shelley ([id number]) [facility] ([facility]) [address] [place] [address] Glucose [Mass/Vol] 222 mg/dL High [address] [place] [address] Comment on above: Performed By: #### 3 4529-8 #### PARIS Shelley ([id number]) [facility] ([facility]) [address] [place] [address] Glucose [Mass/Vol] 182 mg/dL [address] Comment on above: Performed By: #### 3 4529-8 #### PARIS GIORDANOER L ([id number]) [facility] ([facility]) [address] [place] [address] Glucose [Mass/Vol] 253 mg/dL High 74-99 [facility] Comment on above: Performed By: #### 3 4529-8 #### PARIS SCHMOTZER L ([id number]) [facility] ([facility]) [address] [place] [address] Glucose [Mass/Vol] 252 mg/dL High 74-99 [facility] Comment on above: Performed By: #### 4 548-4 #### PARIS MERINOMOTZGLADYS L ([id number]) [facility] ([facility]) [address] [place] [address] Magnesiumon 11-24-2023 Magnesium [Mass/Vol] 1.67 mg/dL Normal 1.60-2.40 [facility] Comment on above: Performed By: #### 4 548-4 #### PARIS Shelley ([id number]) [facility] ([facility]) [address] [place] [address] Non-coffee maker cytology studyon Non-gynecological cytology method study Pathology report.total SEE COMMENT Non-gynecologic Cytology Case: [id number] Authorizing Provider: Mandie Gold MD Collected: 11/24/2023 1307 Ordering Location: [facility] Received: 11/24/[address] [place] [address] Pathologist: Ramila Gomes MD Specimen: PANCREAS MASS FINE NEEDLE ASPIRATION Path report.final diagnosis SEE COMMENT A. PANCREAS MASS FINE NEEDLE ASPIRATION No malignant cells identified Sample consists of benign acinar glands erp implementation consultant: Rey Samaniego M.D, Laboratory comment SEE COMMENT Slide(s) initially screened by ZEKE Gooden at [address] [place] [address] By the signature on this report, the individual or group listed as making the Final Interpretation/Diagnosi s certifies that they have reviewed this case. Pathology report.intraoperative observation SEE COMMENT A. PANCREAS MASS FINE NEEDLE ASPIRATION. Rapid On-site Evaluation Read Result: Pass 1: Clusters of atypical cells. Pathologist: Dr. Jeff Kirby Called Date/Time: 11/24/2023 1:30 pm Evaluation performed at: [facility] Department of Pathology [address] [place] [phone] Path report.gross observation SEE COMMENT A. PANCREAS MASS FINE NEEDLE ASPIRATION. Received 4 direct smears (2 air-dried Diff-Quik and 2 spray-fixed) and 30 ml chiu clear needle rinse in Cytolyt with particles. Laboratory comment SEE COMMENT A1 Slides Only (No Block) A1-1 Diff Quik Stain Smear NGYN A1-2 Pap Stain Smear NGYN A1-3 Diff Quik Stain Smear NGYN A1-4 Pap Stain Smear NGYN A2 Cell Block A2-1 H&E Normal [facility] Phosphateon 11-24-2023 Phosphate [Mass/Vol] 2.7 mg/dL Normal 2.5-4.9 [facility] Comment on above: Result Comment: The performance characteristics of phosphorus testing in heparinized plasma have been validated by the individual laboratory site where testing is performed. Testing on heparinized plasma is not approved by the FDA; however, such approval is not necessary. Performed By: #### 4 548-4 #### PARIS Shelley ([id number]) [facility] ([facility]) [address] [place], [place] [id number] Surgical pathology studyon 0 11-24-2023 Surgical pathology study Pathology report.total SEE COMMENT Surgical Pathology Case: [id number] Authorizing Provider: Mandie Gold MD Collected: 11/24/2023 1309 Ordering Location: [facility] Received: 11/24/[address] [place] [address] Pathologist: Lulu Gomez MD PhD Specimen: PANCREAS BIOPSY, pancreas head biopsy Path report.final diagnosis SEE COMMENT A. PANCREAS BIOPSY: -Mostly blood with benign pancreatic tissue -Negative for malignancy Note: Deeper sections were reviewed. Laboratory comment By the signature on this report, the individual or group listed as making the Final Interpretation/Diagnosi s certifies that they have reviewed this case. Path report.gross observation SEE COMMENT A: Received in formalin, labeled with the patient???s name and hospital number and "1", are multiple minute qnm-qky-tpide, soft tissue fragments aggregating to 1.1 x 1.0 x 0.2 cm. The specimen is submitted in toto in one cassette. MRS Normal [facility] [id number] 2023 AFP [Mass/Vol] ng/mL Normal 0-9 [facility] Comment on above: Order Comment: AFP t esting is performed by chemiluminescent immunoassay using the Siemens Vets First Choice. Values obtained with different analyte methods cannot be used interchangeably. This test can be used as an adjunct in the diagnosis and monitoring of AFP-producing tumors, including non-seminomatous germ cell tumors and hepatocellular carcinomas. Performed By: #### 1 834-1 #### PARIS Shelley ([id number]) [facility] ([facility]) [address] [place] [address] Bacteria identifiedon 2023 Bacteria identified Cx Nom (Bld) Test: Blood Culture Specimen Source: Peripheral Venipuncture Specimen Type: Blood culture Specimen Date: 11/23/2023 1034 Result Date: 11/27/2023 1201 Result Status: Final result Abnormal: No Resulting Lab: [facility] [address] [place] [address] CULTURE No growth at 4 days - FINAL REPORT Normal [facility] Comment on above: Performed By: #### 5 7021-8 #### PARIS Shelley ([id number]) [facility] ([facility]) [address] [place], [place] [id number] Blood type and Indirect anti body screen panel (Bld)on 11-23-2023 ABO group Nom (Bld) A Normal [facility] Comment on above: Performed By: #### 4 548-4 #### PARIS Shelley ([id number]) [facility] ([facility]) [address] [place] [address]97 Blood group antibody screen Ql Negative Normal [facility] Comment on above: Performed By: #### 4 548-4 #### PARIS Shelley ([id number]) [facility] ([facility]) [address] [place] [address]27[address] D Ag Ql (Bld) Positive Normal [facility] Comment on above: Result Comment: 2nd ABO test required. Order and Collect VERAB Performed By: #### 4 548-4 #### PARIS Shelley ([id number]) [facility] ([facility]) [address] [place] [address] CBC W Auto Differential pane l (Bld)on 11-23-2023 Basophils (Bld) [#/Vol] 0.04 x10*3/uL Normal 0.00-0.10 [facility] Comment on above: Performed By: #### 4 548-4 #### PARIS Shelley ([id number]) [facility] ([facility]) [address] [place] [address] Basophils/100 WBC (Bld) 0.4 % Normal 0.0-2.0 [facility] Comment on above: Performed By: #### 4 548-4 #### PARIS Shelley ([id number]) [facility] ([facility]) [address] [place] [address] Eosinophils (Bld) [#/Vol] 0.18 x10*3/uL Normal 0.00-0.70 [facility] Comment on above: Performed By: #### 4 548-4 #### PARIS Shelley ([id number]) [facility] ([facility]) [address] [place] [address] Eosinophils/100 WBC (Bld) 1.9 % Normal 0.0-6.0 [facility] Comment on above: Performed By: #### 4 548-4 #### PARIS Shelley ([id number]) [facility] ([facility]) [address] [place] [address] Erythrocyte distribution width (RBC) [Ratio] 14.4 % Normal 11.5-14.5 [facility] Comment on above: Performed By: #### 4 548-4 #### PARIS Shelley ([id number]) [facility] ([facility]) [id number] [place] [address] Hematocrit (Bld) [Volume fraction] 34.5 % Low 41.0-52.0 [facility] Comment on above: Performed By: #### 4 548-4 #### PARIS Shelley ([id number]) [facility] ([facility]) [address] [place] [address] Hemoglobin (Bld) [Mass/Vol] 11.1 g/dL Low 13.5-17.5 [facility] Comment on above: Performed By: #### 4 548-4 #### PARIS Shelley ([id number]) [facility] ([facility]) [address] [place] [address]43 Immature granulocytes (Bld) [#/Vol] 0.04 x10*3/uL Normal 0.00-0.70 [facility] Comment on above: Performed By: #### 4 548-4 #### PARIS Shelley ([id number]) [facility] ([facility]) [address] [place] [address]4260 Immature granulocytes/100 WBC (Bld) 0.4 % Normal 0.0-0.9 [facility] Comment on above: Result Comment: Mesha ture Granulocyte Count (IG) includes promyelocytes, myelocytes and metamyelocytes but does not include bands. Percent differential counts (%) should be interpreted in the context of the absolute cell counts (cells/UL). Performed By: #### 4 548-4 #### PARIS Shelley ([id number]) [facility] ([facility]) [address] [place] [address]6039 Lymphocytes (Bld) [#/Vol] 0.96 x10*3/uL Low 1.20-4.80 [facility] Comment on above: Performed By: #### 4 548-4 #### PARIS Shelley ([id number]) [facility] ([facility]) [address] [place] [address]72 Lymphocytes/100 WBC (Bld) 9.9 % Normal 13.0-44.0 [facility] Comment on above: Performed By: #### 4 548-4 #### PARIS PRICE L ([id number]) [facility] ([facility]) [address] [place] [address]7724 MCH (RBC) [Entitic mass] 28.6 pg Normal 26.0-34.0 [facility] Comment on above: Performed By: #### 4 548-4 #### PARIS Shelley ([id number]) [facility] ([facility]) [address] [place] [address] 53119 MCHC (RBC) [Mass/Vol] 32.2 g/dL Normal 32.0-36.0 [facility] Comment on above: Performed By: #### 4 548-4 #### PARIS Shelley ([id number]) [facility] ([facility]) [address] [place] [address] 69994 MCV (RBC) [Entitic vol] 89 fL Normal 80-100 [facility] Comment on above: Performed By: #### 4 548-4 #### PARIS Shelley ([id number]) [facility] ([facility]) [address] [place] [address]123 Monocytes (Bld) [#/Vol] 0.64 x10*3/uL Normal 0.10-1.00 [facility] Comment on above: Performed By: #### 4 548-4 #### PARIS Shelley ([id number]) [facility] ([facility]) [address] [place] [address] 12499 Monocytes/100 WBC (Bld) 6.6 % Normal 2.0-10.0 [facility] Comment on above: Performed By: #### 4 548-4 #### PARIS Shelley ([id number]) [facility] ([facility]) [address] [place] [address], [place] [address] Neutrophils (Bld) [#/Vol] 7.86 x10*3/uL High 1.20-7.70 [facility] Comment on above: Result Comment: Perc ent differential counts (%) should be interpreted in the context of the absolute cell counts (cells/uL). Performed By: #### 4 548-4 #### PARIS PRICE L ([id number]) [facility] ([facility]) [address] [place] [address] Neutrophils/100 WBC (Bld) 80.8 % Normal 40.0-80.0 [facility] Comment on above: Performed By: #### 4 548-4 #### PARIS PRICE L ([id number]) [facility] ([facility]) [address] [place] [address] 33710 Nucleated RBC/100 WBC (Bld) [Ratio] 0.0 /100 WBCs Normal 0.0-0.0 [facility] Comment on above: Performed By: #### 4 548-4 #### PARIS PRICE L ([id number]) [facility] ([facility]) [address] [place] [address] Platelets (Bld) [#/Vol] 433 x10*3/uL Normal 150-450 [facility] Comment on above: Performed By: #### 4 548-4 #### PARIS PRICE L ([id number]) [facility] ([facility]) [address] [place] [address] RBC (Bld) [#/Vol] 3.88 x10*6/uL Low 4.50-5.90 [facility] Comment on above: Performed By: #### 4 548-4 #### PARIS PRICE L ([id number]) [facility] ([facility]) [address] [place] [address] WBC (Bld) [#/Vol] 9.7 x10*3/uL Normal 4.4-11.3 [facility] Comment on above: Performed By: #### 4 548-4 #### PARIS PRICE L ([id number]) [facility] ([facility]) [address] [place] [address] Basophils (Bld) [#/Vol] 0.04 x10*3/uL Normal 0.00-0.10 [facility] Comment on above: Performed By: #### 5 7021-8 #### PARIS GIORDANOER L ([id number]) [facility] ([facility]) [address] [place] [address]1018 Basophils/100 WBC (Bld) 0.4 % Normal 0.0-2.0 [facility] Comment on above: Performed By: #### 5 7021-8 #### PARIS PRICE L ([id number]) [facility] ([facility]) [address] [place] [address] 89373 Eosinophils (Bld) [#/Vol] 0.12 x10*3/uL Normal 0.00-0.70 [facility] Comment on above: Performed By: #### 5 7021-8 #### PARIS MERINOMOJUNO L ([id number]) [facility] ([facility]) [address] [place] [address] 77496 Eosinophils/100 WBC (Bld) 1.3 % Normal 0.0-6.0 [facility] Comment on above: Performed By: #### 5 7021-8 #### PARIS PRICE L ([id number]) [facility] ([facility]) [address] [place] [address] 50504 Erythrocyte distribution width (RBC) [Ratio] 14.4 % Normal 11.5-14.5 [facility] Comment on above: Performed By: #### 5 7021-8 #### PARIS PRICE L ([id number]) [facility] ([facility]) [address] [place] [address] 82449 Hematocrit (Bld) [Volume fraction] 33.5 % Low 41.0-52.0 [facility] Comment on above: Performed By: #### 5 7021-8 #### PARIS PRICE L ([id number]) [facility] ([facility]) [address] [place] [address] Hemoglobin (Bld) [Mass/Vol] 10.4 g/dL Low 13.5-17.5 [facility] Comment on above: Performed By: #### 5 7021-8 #### PARIS Shelley ([id number]) [facility] ([facility]) [id number] [place] [address]1711 Immature granulocytes (Bld) [#/Vol] 0.05 x10*3/uL Normal 0.00-0.70 [facility] Comment on above: Performed By: #### 5 7021-8 #### PARIS Shelley ([id number]) [facility] ([facility]) [address] [place] [address] 97291 Immature granulocytes/100 WBC (Bld) 0.6 % Normal 0.0-0.9 [facility] Comment on above: Result Comment: Mesha ture Granulocyte Count (IG) includes promyelocytes, myelocytes and metamyelocytes but does not include bands. Percent differential counts (%) should be interpreted in the context of the absolute cell counts (cells/UL). Performed By: #### 5 7021-8 #### PARIS Sehlley ([id number]) [facility] ([facility]) [address] [place] [address] Lymphocytes (Bld) [#/Vol] 1.08 x10*3/uL Low 1.20-4.80 [facility] Comment on above: Performed By: #### 5 7021-8 #### PARIS Shelley ([id number]) [facility] ([facility]) [id number] [place] [address] 78405 Lymphocytes/100 WBC (Bld) 11.9 % Normal 13.0-44.0 [facility] Comment on above: Performed By: #### 5 7021-8 #### PARIS Shelley ([id number]) [facility] ([facility]) [address] [place] [address] MCH (RBC) [Entitic mass] 28.0 pg Normal 26.0-34.0 [facility] Comment on above: Performed By: #### 5 7021-8 #### PARIS Shelley ([id number]) [facility] ([facility]) [address] [place] [address] MCHC (RBC) [Mass/Vol] 31.0 g/dL Low 32.0-36.0 [facility] Comment on above: Performed By: #### 5 7021-8 #### PARIS Shelley ([id number]) [facility] ([facility]) [id number] [place] [address] 87105 MCV (RBC) [Entitic vol] 90 fL Normal 80-100 [facility] Comment on above: Performed By: #### 5 7021-8 #### PARIS Shelley ([id number]) [facility] ([facility]) [address] [place] [address] 64525 Monocytes (Bld) [#/Vol] 0.54 x10*3/uL Normal 0.10-1.00 [facility] Comment on above: Performed By: #### 5 7021-8 #### PARIS Shelley ([id number]) [facility] ([facility]) [address] [place] [address] 49421 Monocytes/100 WBC (Bld) 6.0 % Normal 2.0-10.0 [facility] Comment on above: Performed By: #### 5 7021-8 #### PARSI Shelley ([id number]) [facility] ([facility]) [id number] [place] [address] 46927 Neutrophils (Bld) [#/Vol] 7.21 x10*3/uL Normal 1.20-7.70 [facility] Comment on above: Result Comment: Perc ent differential counts (%) should be interpreted in the context of the absolute cell counts (cells/uL). Performed By: #### 5 7021-8 #### PARIS PRICE L ([id number]) [facility] ([facility]) [address] [place] [address] Neutrophils/100 WBC (Bld) 79.8 % Normal 40.0-80.0 [facility] Comment on above: Performed By: #### 5 7021-8 #### PARIS PRICE L ([id number]) [facility] ([facility]) [address] [place] [address] 33099 Nucleated RBC/100 WBC (Bld) [Ratio] 0.0 /100 WBCs Normal 0.0-0.0 [facility] Comment on above: Performed By: #### 5 7021-8 #### PARIS MERINOMOTZER L ([id number]) [facility] ([facility]) [address] [place] [address] 66643 Platelets (Bld) [#/Vol] 445 x10*3/uL Normal 150-450 [facility] Comment on above: Performed By: #### 5 7021-8 #### PARIS PRICE L ([id number]) [facility] ([facility]) [address] [place] [address] 07852 RBC (Bld) [#/Vol] 3.72 x10*6/uL Low 4.50-5.90 [facility] Comment on above: Performed By: #### 5 7021-8 #### PARIS MERINOMOTZGLADYS L ([id number]) [facility] ([facility]) [address] [place] [address] 30085 WBC (Bld) [#/Vol] 9.0 x10*3/uL Normal 4.4-11.3 [facility] Comment on above: Performed By: #### 5 7021-8 #### PARIS GARNETTTZGLADYS L ([id number]) [facility] ([facility]) [address] [place] [address] ABDOMEN PELVIS W IV CONTR Aneesh 11-23-2023 CT ABDOMEN PELVIS W IV CONTRAST Interpreted By: Beatrice Dale, and Kiarra Frankel STUDY: CT ABDOMEN PELVIS W IV CONTRAST; 11/23/2023 10:06 am INDICATION: Signs/Symptoms:C/f possible bleed and has drains. COMPARISON: CT abdomen 11/13/2023 ACCESSION NUMBER(S): [id number] ORDERING CLINICIAN: SULLY ROCHA TECHNIQUE: CT of the abdomen and pelvis was performed. Standard contiguous axial images were obtained at 3 mm slice thickness through the abdomen and pelvis. Coronal and sagittal reconstructions at 3 mm slice thickness were performed. 90 ml of contrast omni 350 were administered intravenously without immediate complication. FINDINGS: LOWER CHEST: Rtrtn-acfjmvy-rycf-left basilar bandlike opacities suggesting atelectasis. No pleural effusion or pneumothorax. No suspicious pulmonary nodules. ABDOMEN: LIVER: Interval placement of 3 pigtail drainage catheters within previously described peripherally enhancing fluid collections within an ill-defined area of heterogenous enhancement in hepatic segment 5. Interval decreased size of fluid collections, with the overall area now measuring 9.7 X 4.3 cm (series 501, image 57) and previously measuring 11.2 X 6.7 cm. There are multiple foci of air within the fluid collections and a small amount in the perihepatic fluid. Small amount of streak artifact adjacent to drainage catheters. There are new collections of contrast extravasation within hepatic segment 5 (series 501, image 59, 53, and 51), suggestive of contained hepatic hemorrhage. Perihepatic fat stranding, as well as small amount of simple attenuating fluid adjacent to the liver and extending inferiorly along the right pericolic gutter. BILE DUCTS: There is a calcification of the expected location of the ampulla measuring 1.0 cm, with mild upstream dilation of the common bile duct 1.2 cm (series 501, image 55). There is also mildl dilation of the intrahepatic bile ducts, which is mildly increased. GALLBLADDER: The gallbladder is nondistended and without evidence of radiopaque stones. Pericholecystic fat stranding is noted, which is contiguous with the peripancreatic fat stranding. PANCREAS: Severe atrophy of the pancreas without visualization of the body and tail. The head of the pancreas is rounded and masslike, measuring 3.1 X 2.9 cm (series 501 image 67). SPLEEN: Splenomegaly measuring 13.6 cm in the craniocaudal axis. No focal lesions. ADRENAL GLANDS: Bilateral adrenal glands appear normal. KIDNEYS AND URETERS: The kidneys are normal in size and enhance symmetrically. Similar appearance of small right renal cyst. Mild perinephric stranding. No hydroureteronephrosis or nephroureterolithiasis is identified. PELVIS: BLADDER: The urinary bladder appears normal without abnormal wall thickening. REPRODUCTIVE ORGANS: The prostate is not enlarged. BOWEL: The stomach is unremarkable. The small and large bowel are normal in caliber and demonstrate no wall thickening. The appendix appears normal. VESSELS: There is no aneurysmal dilatation of the abdominal aorta. Mild atherosclerotic vascular disease of the abdominal aorta and its branches. The IVC appears normal. PERITONEUM/RETROPERITON EUM/LYMPH NODES: Large portacaval lymph node measuring 3.0 X 2.4 cm (series 501, image 57) is similar in appearance to the prior exam. Several mildly enlarged upper abdominal lymph nodes are also noted, unchanged. BONES AND ABDOMINAL WALL: No suspicious osseous lesions are identified. 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 Remote posterior left rib fractures, as well as the left transverse process of L2. The abdominal wall soft tissues appear normal. IMPRESSION: 1. Mild interval decrease in size of a heterogenously hypoenhancing lesion with air foci predominantly involving segments 5 and segment VIII, status post 3 percutaneous drains placement, compared to 11/13/2023 CT. Findings may represent an abscess versus infected necrotic mass for correlation with tissue sampling results. 2. New foci of contrast pooling within the aforementioned liver mass/abscess, concerning for areas of hemorrhage/active bleeding. 3. Stable pancreatic head mass measures 3.1 X 2.9 cm, with associated mild intra and extrahepatic biliary dilation, concerning for pancreatic neoplasm. Nonvisualization of the pancreatic head and tail, which likely represent chronic pancreatitis related severe atrophy with fatty replacement. 4. No substantial interval change in enlarged upper abdominal lymph nodes, measuring up to 3.0 x 2.4 cm in the portacaval region. 5. A 1.0 cm calcified focus in the region of the ampulla, may represent a periampullary common bile duct stone versus pancreatic head calcification. I personally reviewed the image(s)/study and resident interpretation. I agree with the finding (more content not included)... [facility] CT ABDOMEN PELVIS WO IV CONT [facility] 11-23-2023 CT ABDOMEN PELVIS WO IV CONTRAST Interpreted By: Boni Milian and Baker Zachary STUDY: CT ABDOMEN PELVIS WO IV CONTRAST; 11/23/2023 7:41 pm INDICATION: Signs/Symptoms:C/f bleed please compare to prior imaging. COMPARISON: CT abdomen and pelvis on 11/23/2023. ACCESSION NUMBER(S): [id number] ORDERING CLINICIAN: SULLY ROCHA TECHNIQUE: CT of the abdomen and pelvis was performed. Contiguous axial images were obtained at 3 mm slice thickness through the abdomen and pelvis. Coronal and sagittal reconstructions at 3 mm slice thickness were performed. No intravenous contrast was administered. FINDINGS: Please note that the evaluation of vessels, lymph nodes and organs is limited without intravenous contrast. LOWER CHEST: Bibasilar atelectasis. No pleural effusion. Heart is normal in size without pericardial effusion. The visualized distal esophagus is normal in appearance. ABDOMEN: LIVER: Stable positioning of 3 percutaneous drainage catheters with the tips terminating within multiple ill-defined heterogenous fluid collections within the right hepatic lobe. Similar size of the largest collection within the inferior right hepatic lobe. The remaining collections are better characterized on same day contrast enhanced CT. Redemonstration of multiple air foci throughout the liver and a small amount of perihepatic fluid, similar to prior exam. Redemonstration of multiple hyperdense foci throughout the inferior right hepatic lobe, slightly decreased in prominence compared to prior exam. No new areas of hyperdensity within the liver. BILE DUCTS: Redemonstration of 0.9 cm focal calcification in the expected location of the ampulla, with mild upstream dilation of the common bile duct, similar to prior exam. Mild intrahepatic biliary ductal dilatation, better characterized on prior exam. GALLBLADDER: No calcified stones. No wall thickening. PANCREAS: Severe atrophy of the pancreas without visualization of the body and tail. Redemonstration of round masslike pancreatic head, measuring approximately 3 x 2.9 cm, similar to prior exam. SPLEEN: Spleen is mildly enlarged, measuring approximately 14.6 cm in the craniocaudal dimension, similar to prior exam. No focal lesions. ADRENAL GLANDS: Bilateral adrenal glands appear normal. KIDNEYS AND URETERS: The kidneys are normal in size and unremarkable in appearance. Redemonstration of mild nonspecific perinephric fat stranding bilaterally. Small amount of contrast within the bilateral renal pelves and proximal ureters limits evaluation of nephroureterolithiasis. Within the limitations, no stones identified. No hydroureteronephrosis. PELVIS: BLADDER: Bladder is decompressed and filled with contrast. No wall thickening. REPRODUCTIVE ORGANS: The prostate is not enlarged. BOWEL: The stomach is normal in appearance. Mild fluid distention of multiple small bowel loops within the left hemiabdomen. The remaining small bowel is normal in caliber without wall thickening. Large bowel is normal in caliber without wall thickening. The appendix is not definitively visualized, however there is no pericecal stranding or fluid. VESSELS: There is no aneurysmal dilatation of the abdominal aorta. The IVC appears normal. Moderate atherosclerotic calcifications of the abdominal aorta and its branching vessels. PERITONEUM/RETROPERITON EUM/LYMPH NODES: Small amount of perihepatic fluid and mild mesenteric fat stranding/edema within right upper quadrant, similar to prior exam. No loculated intra-abdominal fluid collections. No free air. Redemonstration of enlarged portacaval lymph node, measuring approximately 3 x 2.4 cm, similar in size and appearance to prior exam. Redemonstration of additional mildly enlarged lymph nodes within the upper abdomen, similar in size and appearance to prior exam. No new lymphadenopathy. ABDOMINAL WALL: Drainage catheters traverse the right upper quadrant abdominal wall soft tissues, with small amount of associated soft tissue gas/edema. Small fat containing umbilical hernia. Redemonstration of air foci within the right lower quadrant abdominal wall, similar to prior exam, which may represent injection site. BONES: No suspicious osseous lesions are identified. Degenerative discogenic disease is noted in the lower thoracic and lumbar spine. IMPRESSION: 1. Redemonstration of multiple foci of contrast pooling throughout the inferior right hepatic lobe, slightly decreased in prominence compared to prior exam, which may represent residual areas of hemorrhage. No new intra-abdominal fluid collections or hemorrhage identified on this noncontrast exam. 2. Multiple ill-defined heterogenous fluid collections within hepatic segments 5 and 8, with stable positioning of percutaneous drains, better characterized on same day contrast-enhanced CT. 3. Mild f (more content not included)... Normal [facility] CT ANGIO CHEST FOR PULMONARY EMBOLISMon 11-23-2023 CT ANGIO CHEST FOR PULMONARY EMBOLISM Interpreted By: Sherri Mckeon and Tippareddy Charit STUDY: CT ANGIO CHEST FOR PULMONARY EMBOLISM; 11/23/2023 10:06 am INDICATION: Signs/Symptoms:Rule out PE given new SOB and tachycardia. COMPARISON: None ACCESSION NUMBER(S): [id number] ORDERING CLINICIAN: SULLY ROCHA TECHNIQUE: Helical data acquisition of the chest was obtained after intravenous administration of 90 ML Omnipaque 350, as per PE protocol. Images were reformatted in coronal and sagittal planes. Axial and coronal maximum intensity projection (MIP) images were created and reviewed. FINDINGS: POTENTIAL LIMITATIONS OF THE STUDY: None HEART AND VESSELS: There are no discrete filling defects within main pulmonary artery and its branches to suggest acute pulmonary embolism. Main pulmonary artery and its branches are normal in caliber. The thoracic aorta normal in course and caliber.There is mild scattered atherosclerosis present. Mild coronary artery calcifications are seen. Please note,the study is not optimized for evaluation of coronary arteries. The cardiac chambers are not enlarged.There are no findings to suggest right heart strain. There is no pericardial effusion seen. MEDIASTINUM AND ALYSSA, LOWER NECK AND AXILLA: The visualized thyroid gland is within normal limits. No evidence of thoracic lymphadenopathy by CT criteria. Esophagus appears within normal limits as seen. LUNGS AND AIRWAYS: Mild nodular thickening along the right posterior trachea just prior to the bifurcation measuring 0.4 cm in thickness (series 404, image 97 or series 401, image 99). There is diffuse bronchial wall thickening with decreased caliber of the distal airways. There are bilateral basilar airspace opacities, which are homogeneously enhancing, and likely felt to be atelectatic in nature. No consolidations, pleural effusions, or pneumothorax. No suspicious pulmonary nodules. UPPER ABDOMEN: Surgical drains noted within the liver in the region of previously noted collection. Limited evaluation of the liver due to the external drains. However there appears to be areas of hyperdensity within the abdomen which may be postsurgical in nature. Nodular thickening of the left adrenal gland. See same day CT abdomen pelvis report for further details. CHEST WALL AND OSSEOUS STRUCTURES: Chest wall is within normal limits. No acute osseous pathology.There are no suspicious osseous lesions. IMPRESSION: 1. No evidence of acute pulmonary embolism or acute intrathoracic abnormality. 2. Incidental note of mild nodular thickening along the right posterior trachea just prior to the bifurcation. Findings are of uncertain clinical significance. Recommend attention on follow-up. 3. See same day CT abdomen pelvis report for further details. I personally reviewed the images/study and I agree with the findings as stated by Gavin Ferrer MD. This study was interpreted at [place], [place]. MACRO: None Signed by: Sherri Mckeon 11/23/2023 11:18 AM Dictation workstation: [id number] [facility] Cancer Ag 19-9on 11-23-2023 Cancer Ag 19-9 Qn 61.25 [arb'U]/mL High <35.00 U [facility] Comment on above: Order Comment: CA 19 -9 testing is performed by chemiluminescent immunoassay using the Siemens [employer]ell[employer]. Values obtained with different analytic methods cannot beused interchangeably.Serum CA 19-9 measurement is indicated for the serial measurement of CA 19-9 to aid in the management of patients diagnosed with cancers of the exocrine pancreas. This assay is not intended for screening or diagnosis of cancer in the general population. The results must not be used as the sole means for clinical diagnosis or patient management decisions.Patients known to be genotypically negative for the Garrett blood group antigens will be unable to produce CA 19-9 antigen, even in malignant tissue. Phenotyping for the presence of the Garrett antigen may be insufficient todetect true Garrett antigen negative individuals.The results must not be used as the sole means for clinical diagnosis or patient management decisions. Performed By: #### 5 7021-8 #### PARIS Shelley ([id number]) [facility] ([facility]) [address] [place] [address] Carcinoembryonic Agon 2023 Carcinoembryonic Ag [Mass/Vol] ng/mL [facility] Comment on above: Order Comment: REF V ALUES NONSMOKERS 0-2.5 SMOKERS 0-5.0 CEA testing is performed by chemiluminescent immunoassay using the Siemens Atell[employer]. Values obtained with different analytic methods cannot be used interchangeably. Serum CEA measurement is intended for use as an aid in the management of patients previously treated for cancer. This assay is not intended for screening or diagnosis of cancer in the general population. The results must not be used as the sole means for clinical diagnosis or patient management decisions. Performed By: #### 2 039-6 #### PARIS Shelley ([id number]) [facility] ([facility]) [address] [place], [place] [id number] Glucose Test strip manual (B ld) [Mass/Vol]on 11-23-2023 Glucose [Mass/Vol] 256 mg/dL High 74-99 [facility] Comment on above: Performed By: #### 4 548-4 #### PARIS Shelley ([id number]) [facility] ([facility]) [address] [place] [address] Glucose [Mass/Vol] 151 mg/dL High [address] [place] [address] Comment on above: Performed By: #### 4 548-4 #### PARIS Shelley ([id number]) [facility] ([facility]) [address] [place] [address] Glucose [Mass/Vol] 167 mg/dL High [address] [place] [address] Comment on above: Performed By: #### 5 7021-8 #### PARIS Shelley ([id number]) [facility] ([facility]) [address] [place] [address] Glucose [Mass/Vol] 223 mg/dL High [address] [place] [address] Comment on above: Performed By: #### 5 7021-8 #### PARIS Shelley ([id number]) [facility] ([facility]) [address] [place] [address] HbA1c (Bld) [Mass fraction]o n 11-23-2023 Average glucose Estimated from glycated hemoglobin (Bld) [Mass/Vol] 243 mg/dL Normal Not Established [facility] Comment on above: Order Comment: Diagn osis of Diabetes-Adults Non-Diabetic: < or = 5.6% Increased risk for developing diabetes: 5.7-6.4% Diagnostic of diabetes: > or = 6.5% Monitoring of Diabetes Age (y)....................... Therapeutic Goal (%) Adults: >18.........................<7.0 Pediatrics: 13-18...................<7.5 Pediatrics: 7-12....................<8.0 Pediatrics: 0-6..................... 7.5-8.5 [employer]. Diabetes Care 33(S1), Jun 2009 Performed By: #### 4 548-4 #### PARIS Shelley ([id number]) [facility] ([facility]) [id number] [place] [address] Hemoglobin A1c/Hemoglobin.to carmenza 11-23-2023 HbA1c (Bld) [Mass fraction] 10.1 % High see below [facility] Comment on above: Order Comment: Diagn osis of Diabetes-Adults Non-Diabetic: < or = 5.6% Increased risk for developing diabetes: 5.7-6.4% Diagnostic of diabetes: > or = 6.5% Monitoring of Diabetes Age (y)....................... Therapeutic Goal (%) Adults: >18.........................<7.0 Pediatrics: 13-18...................<7.5 Pediatrics: 7-12....................<8.0 Pediatrics: 0-6..................... 7.5-8.5 [employer]. Diabetes Care 33(S1), Jun 2009 Performed By: #### 4 548-4 #### PARIS Shelley ([id number]) [facility] ([facility]) [address] [place], [place] [address] Hepatic function 2000 panelo n 11-23-2023 ALP [Catalytic activity/Vol] 125 U/L Normal 33-136 [facility] Comment on above: Performed By: #### 2 4325-3 #### PARIS Shelley ([id number]) [facility] ([facility]) [address] [place] [id number] ALT With P-5'-P [Catalytic activity/Vol] 13 U/L Normal 10-52 [facility] Comment on above: Result Comment: Malik ents treated with Sulfasalazine may generate falsely decreased results for ALT. Performed By: #### 2 4325-3 #### PARIS Shelley ([id number]) [facility] ([facility]) [address] [place] [address] AST With P-5'-P [Catalytic activity/Vol] 22 U/L Normal 9-39 [facility] Comment on above: Performed By: #### 2 4325-3 #### PARIS Shelley ([id number]) [facility] ([facility]) [address] [place] [address] Bilirubin [Mass/Vol] 0.3 mg/dL Normal 0.0-1.2 [facility] Comment on above: Performed By: #### 2 4325-3 #### PRAIS Shelley ([id number]) [facility] ([facility]) [address] [place] [address] Bilirubin.direct [Mass/Vol] 0.1 mg/dL Normal 0.0-0.3 [facility] Comment on above: Performed By: #### 2 4325-3 #### PARIS Shelley ([id number]) [facility] ([facility]) [address] [place] [address] Protein [Mass/Vol] 6.2 g/dL Low 6.4-8.2 [facility] Comment on above: Performed By: #### 2 4325-3 #### PARIS Shelley ([id number]) [facility] ([facility]) [address] [place] [address] Lactateon 11-23-2023 Lactate [Moles/Vol] 0.8 mmol/L Normal 0.4-2.0 [facility] Comment on above: Order Comment: Venip uncture immediately after or during the administration of Metamizole may lead to falsely low results. Testing should be performed immediatelyprior to Metamizole dosing. Performed By: #### 5 7021-8 #### PARIS Shelley ([id number]) [facility] ([facility]) [id number] [place] [address] Magnesiumon 11-23-2023 Magnesium [Mass/Vol] 2.03 mg/dL Normal 1.60-2.40 [facility] Comment on above: Performed By: #### 1 9123-9 #### PARIS Shelley ([id number]) [facility] [facility] ([facility]) [address] [place] [address]69 PT and aPTT panel Coag (PPP) on 11-23-2023 aPTT Coag (PPP) [Time] 37 s Normal 27-38 [facility] Comment on above: Order Comment: The A PTT is no longer used for monitoring Unfractionated Heparin Therapy. For monitoring Heparin Therapy, use the Heparin Assay. Performed By: #### 5 7021-8 #### PARIS Shelley ([id number]) [facility] ([facility]) [address] [place] [address] 76561 INR Coag (PPP) [Relative time] 1.2 High 0.9-1.1 [facility] Comment on above: Order Comment: The A PTT is no longer used for monitoring Unfractionated Heparin Therapy. For monitoring Heparin Therapy, use the Heparin Assay. Performed By: #### 5 7021-8 #### PARIS Shelley ([id number]) [facility] ([facility]) [address] [place] [address] 56990 PT Coag (PPP) [Time] 13.7 s High 9.8-12.8 [facility] Comment on above: Order Comment: The A PTT is no longer used for monitoring Unfractionated Heparin Therapy. For monitoring Heparin Therapy, use the Heparin Assay. Performed By: #### 5 7021-8 #### PARIS Shelley ([id number]) [facility] ([facility]) [address] [place] [address] 56770 aPTT Coag (PPP) [Time] 38 s Normal 27-38 [facility] Comment on above: Order Comment: The A PTT is no longer used for monitoring Unfractionated Heparin Therapy. For monitoring Heparin Therapy, use the Heparin Assay. Performed By: #### 3 4529-8 #### PARIS Shelley ([id number]) [facility] ([facility]) [address] [place] [address] INR Coag (PPP) [Relative time] 1.2 High 0.9-1.1 [facility] Comment on above: Order Comment: The A PTT is no longer used for monitoring Unfractionated Heparin Therapy. For monitoring Heparin Therapy, use the Heparin Assay. Performed By: #### 3 4529-8 #### PARIS Shelley ([id number]) [facility] ([facility]) [address] [place] [address] PT Coag (PPP) [Time] 13.7 s High 9.8-12.8 [facility] Comment on above: Order Comment: The A PTT is no longer used for monitoring Unfractionated Heparin Therapy. For monitoring Heparin Therapy, use the Heparin Assay. Performed By: #### 3 4529-8 #### PARIS Shelley ([id number]) [facility] ([facility]) [address] [place], [place] [id number] Renal function 2000 panelon 11-23-2023 Albumin BCP dye [Mass/Vol] 2.8 g/dL Low 3.4-5.0 [facility] Comment on above: Performed By: #### 2 4362-6 #### PARIS Shelley ([id number]) [facility] ([facility]) [address] [place], [place] [id number] Performed By: #### 2 4325-3 #### PARIS Shelley ([id number]) [facility] ([facility]) [address] [place] [address]607 Anion gap [Moles/Vol] 12 mmol/L Normal 10-20 [facility] Comment on above: Performed By: #### 2 4362-6 #### PARIS Shelley ([id number]) [facility] ([facility]) [address] [place] [address] 52679 Calcium [Mass/Vol] 8.6 mg/dL Normal 8.6-10.6 [facility] Comment on above: Performed By: #### 2 4362-6 #### PARIS Shelley ([id number]) [facility] ([facility]) [address] [place] [address] Chloride [Moles/Vol] 100 mmol/L Normal 98-107 [facility] Comment on above: Performed By: #### 2 4362-6 #### PARIS Shelley ([id number]) [facility] ([facility]) [address] [place] [address] CO2 [Moles/Vol] 30 mmol/L Normal 21-32 [facility] Comment on above: Performed By: #### 2 4362-6 #### PARIS Shelley ([id number]) [facility] ([facility]) [address] [place] [address] Creatinine [Mass/Vol] 0.84 mg/dL Normal 0.50-1.30 [facility] Comment on above: Performed By: #### 2 4362-6 #### PARIS Shelley ([id number]) [facility] ([facility]) [address] [place] [address] GFR/1.73 sq M.predicted MDRD (S/P/Bld) [Vol rate/Area] mL/min/{1.73_m2} Normal >60 [facility] Comment on above: Result Comment: Calc ulations of estimated GFR are performed using the 2020 CKD-EPI Study Refit equation without the race variable for the IDMS-Traceable creatinine methods. https://jasn.asnjournals.org/content//ASN.61645 79406 Performed By: #### 2 4362-6 #### PARIS Shelley ([id number]) [facility] ([facility]) [address] [place] [address] Glucose [Mass/Vol] 354 mg/dL High 74-99 [facility] Comment on above: Performed By: #### 2 4362-6 #### PARIS Shelley ([id number]) [facility] ([facility]) [address] [place] [address] Phosphate [Mass/Vol] 3.1 mg/dL Normal 2.5-4.9 [facility] Comment on above: Result Comment: The performance characteristics of phosphorus testing in heparinized plasma have been validated by the individual laboratory site where testing is performed. Testing on heparinized plasma is not approved by the FDA; however, such approval is not necessary. Performed By: #### 2 4362-6 #### PARIS Shelley ([id number]) [facility] ([facility]) [id number] [place] [address] Potassium [Moles/Vol] 4.5 mmol/L Normal 3.5-5.3 [facility] Comment on above: Performed By: #### 2 4362-6 #### PARIS Shelley ([id number]) [facility] ([facility]) [address] [place] [address] 61117 Sodium [Moles/Vol] 137 mmol/L Normal 136-145 [facility] Comment on above: Performed By: #### 2 4362-6 #### PARIS Shelley ([id number]) [facility] ([facility]) [id number] [place] [address] Urea nitrogen [Mass/Vol] 14 mg/dL Normal 6-23 [facility] Comment on above: Performed By: #### 2 4362-6 #### PARIS Shelley ([id number]) [facility] ([facility]) [address] [place] [address] Triacylglycerol lipaseon Lipase [Catalytic activity/Vol] 5 U/L Low 9-82 [facility] Comment on above: Order Comment: Venip uncture immediately after or during the administration of Metamizole may lead to falsely low results. Testing should be performed immediately prior to Metamizole dosing. Performed By: #### 3 040-3 #### PARIS Shelley ([id number]) [facility] ([facility]) [id number] [place] [address] .Auto Diffon 11-22-2023 Basophil, Absolute 0.1 10 3/mcL Normal 0.0-0.3 [facility] ([place]) Comment on above: Performed By: #### C BC, ADIFF, CMP, ANEU, PRO, GFR ####[address] [address] Basophils/100 WBC (Bld) 1.5 % Normal 0.0-2.5 [facility] ([place]) Comment on above: Performed By: #### C BC, ADIFF, CMP, ANEU, PRO, GFR ####[address] [address] Eosinophil, Absolute 0.2 10 3/mcL Normal 0.0-0.7 [facility] ([place]) Comment on above: Performed By: #### C BC, ADIFF, CMP, ANEU, PRO, GFR ####[address] [address] Eosinophils/100 WBC (Bld) 2.7 % Normal 0.0-6.0 [facility] ([place]) Comment on above: Performed By: #### C BC, ADIFF, CMP, ANEU, PRO, GFR ####[address] [address] Lymphocyte, Absolute 1.5 10 3/mcL Normal 0.9-4.3 [facility] ([place]) Comment on above: Performed By: #### C BC, ADIFF, CMP, ANEU, PRO, GFR ####[address] [address] Lymphocytes/100 WBC (Bld) 17.5 % Low 20.0-40.0 [facility] ([place]) Comment on above: Performed By: #### C BC, ADIFF, CMP, ANEU, PRO, GFR ####[address] [address] Monocyte, Absolute 0.6 10 3/mcL Normal 0.1-1.4 [facility] ([place]) Comment on above: Performed By: #### C BC, ADIFF, CMP, ANEU, PRO, GFR ####[address] [address] Monocytes/100 WBC (Bld) 7.2 % Normal 2.0-13.0 [facility] ([place]) Comment on above: Performed By: #### C BC, ADIFF, CMP, ANEU, PRO, GFR ####[address] [address] Neutrophils/100 WBC (Bld) 71.1 % Normal 50.0-75.0 [facility] ([place]) Comment on above: Performed By: #### C BC, ADIFF, CMP, ANEU, PRO, GFR ####[address] [address] .GFRon 11-22-2023 GFR Non- >60 Normal [facility] ([place]) Comment on above: Result Comment: GFR Population mean for , Non- Americans Ages 20-29 = 116 mL/min/1.73 sq.m. Ages 30-39 = 107 mL/min/1.73 sq.m. Ages 40-49 = 99 mL/min/1.73 sq.m. Ages 50-59 = 93 mL/min/1.73 sq.m. Ages 60-69 = 85 mL/min/1.73 sq.m. Ages 70+ = 75 mL/min/1.73 sq.m. Chronic Kidney Disease: Less than 60 mL/min/1.73 square meters End Stage Renal Disease: Less than 15 mL/min/1.73 square meters Performed By: #### C BC, ADIFF, CMP, ANEU, PRO, GFR ####[address] [address] GFR >60 Normal [facility] ([place]) Comment on above: Result Comment: GFR Population mean for , Non- Americans Ages 20-29 = 116 mL/min/1.73 sq.m. Ages 30-39 = 107 mL/min/1.73 sq.m. Ages 40-49 = 99 mL/min/1.73 sq.m. Ages 50-59 = 93 mL/min/1.73 sq.m. Ages 60-69 = 85 mL/min/1.73 sq.m. Ages 70+ = 75 mL/min/1.73 sq.m. Chronic Kidney Disease: Less than 60 mL/min/1.73 square meters End Stage Renal Disease: Less than 15 mL/min/1.73 square meters Performed By: #### C BC, ADIFF, CMP, ANEU, PRO, GFR ####[place] [address] .NEUABSon 11-22-2023 Neutrophil, Absolute 5.9 10 3/mcL Normal 2.3-8.1 [facility] ([place]) Comment on above: Performed By: #### C BC, ADIFF, CMP, ANEU, PRO, GFR ####[place] [address] CBCon 11-22-2023 Erythrocyte distribution width (RBC) [Ratio] 16.2 % High 11.5-15.5 [facility] ([place]) Comment on above: Performed By: #### C BC, ADIFF, CMP, ANEU, PRO, GFR ####[place] [address] Hematocrit (Bld) [Volume fraction] 34.6 % Low 40.0-52.0 [facility] ([place]) Comment on above: Performed By: #### C BC, ADIFF, CMP, ANEU, PRO, GFR ####[place] [address] Hgb 11.3 G/dL Low 13.0-17.5 [facility] ([place]) Comment on above: Performed By: #### C BC, ADIFF, CMP, ANEU, PRO, GFR ####[place] [address] MCH (RBC) [Entitic mass] 28.5 pg Normal 27.0-33.0 [facility] ([place]) Comment on above: Performed By: #### C BC, ADIFF, CMP, ANEU, PRO, GFR ####[place] [address] MCHC 32.5 G/dL Normal 32.0-36.0 [facility] ([place]) Comment on above: Performed By: #### C BC, ADIFF, CMP, ANEU, PRO, GFR ####[place] [address] MCV (RBC) [Entitic vol] 87.7 fL Normal 81.0-100.0 [facility] ([place]) Comment on above: Performed By: #### C BC, ADIFF, CMP, ANEU, PRO, GFR ####[place] [address] Platelet 496 10 3/mcL High 150-450 [facility] ([place]) Comment on above: Performed By: #### C BC, ADIFF, CMP, ANEU, PRO, GFR ####[place] [address] Platelet mean volume (Bld) [Entitic vol] 8.2 fL Normal 6.4-10.5 [facility] ([place] Comment on above: Performed By: #### C BC, ADIFF, CMP, ANEU, PRO, GFR ####[place] [address] RBC 3.94 10 6/mcL Low 4.50-6.00 [facility] ([place]) Comment on above: Performed By: #### C BC, ADIFF, CMP, ANEU, PRO, GFR ####[place] [address] WBC 8.4 10 3/mcL Normal 4.5-10.8 [facility] ([place] Comment on above: Performed By: #### C BC, ADIFF, CMP, ANEU, PRO, GFR ####[place] [address] CMPon 11-22-2023 Albumin Level 2.0 G/dL Low 3.2-4.8 [facility] ([place]) Comment on above: Performed By: #### C BC, ADIFF, CMP, ANEU, PRO, GFR ####[place] [address] Albumin/Globulin [Mass ratio] 0.5 {ratio} Low 0.9-1.6 [facility] ([place]) Comment on above: Performed By: #### C BC, ADIFF, CMP, ANEU, PRO, GFR ####[place] [address] ALP [Catalytic activity/Vol] 138 U/L High 38-126 [facility] ([place] Comment on above: Performed By: #### C BC, ADIFF, CMP, ANEU, PRO, GFR ####[place] [address] ALT [Catalytic activity/Vol] 12 U/L Normal 12-55 [facility] ([place] Comment on above: Performed By: #### C BC, ADIFF, CMP, ANEU, PRO, GFR ####[address] [address] AST [Catalytic activity/Vol] 13 U/L Normal 8-34 [facility] ([place] Comment on above: Performed By: #### C BC, ADIFF, CMP, ANEU, PRO, GFR ####[place] [address] Bili Total 0.30 mg/dL Normal 0.20-1.20 [facility] ([place]) Comment on above: Result Comment: Use of this assay is not recommended for patients undergoing treatment with eltrombopag due to the potential for falsely elevated results. Performed By: #### C BC, ADIFF, CMP, ANEU, PRO, GFR ####[place] [address] BUN/Creatinine Ratio 12.8 ratio Normal 10.0-22.0 [facility] ([place] Comment on above: Performed By: #### C BC, ADIFF, CMP, ANEU, PRO, GFR ####[place] [address] Calcium [Mass/Vol] 9.2 mg/dL Normal 8.7-10.4 [facility] ([place]) Comment on above: Performed By: #### C BC, ADIFF, CMP, ANEU, PRO, GFR ####[place] [id number] Chloride [Moles/Vol] 104 mmol/L Normal 98-110 [facility] ([place] Comment on above: Performed By: #### C BC, ADIFF, CMP, ANEU, PRO, GFR ####[place] [id number] CO2 [Moles/Vol] 32 mmol/L Normal 22-32 [facility] ([place]) Comment on above: Performed By: #### C BC, ADIFF, CMP, ANEU, PRO, GFR ####[place] [address] Creatinine [Mass/Vol] 0.86 mg/dL Normal 0.60-1.40 [facility] ([place]) Comment on above: Performed By: #### C BC, ADIFF, CMP, ANEU, PRO, GFR ####[place] [address] Electrolyte Balance 3.0 mEq/L Low 4.0-15.0 [facility] ([place]) Comment on above: Performed By: #### C BC, ADIFF, CMP, ANEU, PRO, GFR ####[place] [id number] Globulin 4.3 G/dL High 1.5-3.8 [facility] ([place] Comment on above: Performed By: #### C BC, ADIFF, CMP, ANEU, PRO, GFR ####[place] [address] Glucose [Mass/Vol] 182 mg/dL High 82-115 [facility] ([place]) Comment on above: Performed By: #### C BC, ADIFF, CMP, ANEU, PRO, GFR ####[place] [address] Potassium [Moles/Vol] 4.7 mmol/L Normal 3.5-5.0 [facility] ([place] Comment on above: Performed By: #### C BC, ADIFF, CMP, ANEU, PRO, GFR ####[place] [address] Sodium [Moles/Vol] 139 mmol/L Normal 136-145 [facility] ([place]) Comment on above: Performed By: #### C BC, ADIFF, CMP, ANEU, PRO, GFR ####[place] [address] Total Protein 6.3 G/dL Normal 5.7-8.2 [facility] ([place]) Comment on above: Result Comment: No te - New Reference Range in effect 20 Performed By: #### C BC, ADIFF, CMP, ANEU, PRO, GFR ####[facility] [place] [address] Urea nitrogen [Mass/Vol] 11.0 mg/dL Normal 8.0-22.0 [facility] ([place] Comment on above: Performed By: #### C BC, ADIFF, CMP, ANEU, PRO, GFR ####[facility] [place] [address] Glucose Test strip manual (B ld) [Mass/Vol]on 11-22-2023 Glucose [Mass/Vol] 355 mg/dL High 74-99 [facility] Comment on above: Performed By: #### 2 341-6 #### PARIS Shelley ([id number]) [facility] ([facility]) [address] [place] [address] LABORATORYOrdered By: Miranda Carey on 11-22-2023 Glucose [Mass/Vol] 193 mg/dL High 82 - 115 mg/dL [facility] Blood Glucose Testing Reason Routine (11/22/23 12:08 PM) [facility] Glucose [Mass/Vol] 188 mg/dL High 82 - 115 mg/dL [facility] Blood Glucose Testing Reason Routine (11/22/23 8:33 AM) [facility] Glucose [Mass/Vol] 218 mg/dL High 82 - 115 mg/dL [facility] LABORATORYOrdered By: SYSTEM SYSTEM on 11-22-2023 Albumin BCP dye [Mass/Vol] 2.0 G/dL Low 3.2 - 4.8 G/dL ADM SS Albumin/Globulin [Mass ratio] 0.5 {ratio} Low 0.9 - 1.6 ratio AH ADM SS ALP [Catalytic activity/Vol] 138 U/L High 38 - 126 U/L ADM SS ALT No additional P-5'-P [Catalytic activity/Vol] 12 U/L Normal 12 - 55 U/L AH ADM SS AST [Catalytic activity/Vol] 13 U/L Normal 8 - 34 U/L AH ADM SS Basophils (Bld) [#/Vol] 0.1 103/mcL Normal 0.0 - 0.3 10^3/mcL Workflow SS Basophils/100 WBC (Bld) 1.5 % Normal 0.0 - 2.5 % Workflow SS Bilirubin [Mass/Vol] 0.30 mg/dL Normal 0.20 - 1.20 mg/dL ADM SS Comment on above: Interpretive Data: U se of this assay is not recommended for patients undergoing treatment with eltrombopag due to the potential for falsely elevated results. Calcium [Mass/Vol] 9.2 mg/dL Normal 8.7 - 10. 4 mg/dL ADM SS Chloride [Moles/Vol] 104 mmol/L Normal 98 - 11 0 mEq/L ADM SS CO2 [Moles/Vol] 32 mmol/L Normal 22 - 32 mEq/L ADM SS Creatinine [Mass/Vol] 0.86 mg/dL Normal 0.60 - 1.40 mg/dL ADM SS Electrolyte Balance 3.0 mEq/L Low 4.0 - 15 .0 mEq/L ADM SS Eosinophils (Bld) [#/Vol] 0.2 103/mcL Normal 0.0 - 0.7 10^3/mcL Workflow SS Eosinophils/100 WBC (Bld) 2.7 % Normal 0.0 - 6.0 % Workflow SS Erythrocyte distribution width (RBC) [Ratio] 16.2 % High 11.5 - 15.5 % Workflow SS GFR/1.73 sq M.predicted among blacks MDRD (S/P/Bld) [Vol rate/Area] ml/min/1.73sqm Invalid Interpretation Code Chemistry S Comment on above: Interpretive Data: GFR Population mean for , Non- Americans Ages 20-29 = 116 mL/min/1.73 sq.m. Ages 30-39 = 107 mL/min/1.73 sq.m. Ages 40-49 = 99 mL/min/1.73 sq.m. Ages 50-59 = 93 mL/min/1.73 sq.m. Ages 60-69 = 85 mL/min/1.73 sq.m. Ages 70+ = 75 mL/min/1.73 sq.m. Chronic Kidney Disease: Less than 60 mL/min/1.73 square meters End Stage Renal Disease: Less than 15 mL/min/1.73 square meters GFR/1.73 sq M.predicted among non-blacks MDRD (S/P/Bld) [Vol rate/Area] ml/min/1.73sqm Invalid Interpretation Code Chemistry S Comment on above: Interpretive Data: GFR Population mean for , Non- Americans Ages 20-29 = 116 mL/min/1.73 sq.m. Ages 30-39 = 107 mL/min/1.73 sq.m. Ages 40-49 = 99 mL/min/1.73 sq.m. Ages 50-59 = 93 mL/min/1.73 sq.m. Ages 60-69 = 85 mL/min/1.73 sq.m. Ages 70+ = 75 mL/min/1.73 sq.m. Chronic Kidney Disease: Less than 60 mL/min/1.73 square meters End Stage Renal Disease: Less than 15 mL/min/1.73 square meters Globulin 4.3 G/dL High 1.5 - 3.8 G/dL ADM SS Glucose [Mass/Vol] 182 mg/dL High 82 - 115 mg/dL ADM SS Hematocrit (Bld) [Volume fraction] 34.6 % Low 40.0 - 52.0 % AH Workflow SS Hemoglobin (Bld) [Mass/Vol] 11.3 G/dL Low 13.0 - 17.5 G/dL AH Workflow SS Lymphocytes (Bld) [#/Vol] 1.5 103/mcL Normal 0.9 - 4.3 10^3/mcL AH Workflow SS Lymphocytes/100 WBC (Bld) 17.5 % Low 20.0 - 40.0 % AH Workflow SS MCH (RBC) [Entitic mass] 28.5 pg Normal 27.0 - 33.0 pg AH Workflow SS MCHC 32.5 G/dL Normal 32.0 - 36.0 G/dL AH Workflow SS MCV (RBC) [Entitic vol] 87.7 fL Normal 81.0 - 100.0 fL AH Workflow SS Monocytes (Bld) [#/Vol] 0.6 103/mcL Normal 0.1 - 1.4 10^3/mcL AH Workflow SS Monocytes/100 WBC (Bld) 7.2 % Normal 2.0 - 13.0 % AH Workflow SS Neutrophils (Bld) [#/Vol] 5.9 103/mcL Normal 2.3 - 8.1 10^3/mcL Workflow SS Neutrophils/100 WBC (Bld) 71.1 % Normal 50.0 - 75.0 % Workflow SS Platelet mean volume (Bld) [Entitic vol] 8.2 fL Normal 6.4 - 10.5 fL Workflow SS Platelets (Bld) [#/Vol] 496 103/mcL High 150 - 450 10^3/mcL AH Workflow SS Potassium [Moles/Vol] 4.7 mmol/L Normal 3.5 - 5.0 mEq/L ADM SS Protein [Mass/Vol] 6.3 G/dL Normal 5.7 - 8.2 G/dL ADM SS Comment on above: Interpretive Data: * *Note - New Reference Range in effect 20 RBC (Bld) [#/Vol] 3.94 106/mcL Low 4.50 - 6.0 0 10^6/mcL Workflow SS Sodium [Moles/Vol] 139 mmol/L Normal 136 - 145 mEq/L ADM SS Urea nitrogen [Mass/Vol] 11.0 mg/dL Normal 8.0 - 22.0 mg/dL ADM SS Urea nitrogen/Creatinine [Mass ratio] 12.8 ratio Normal 10.0 - 22.0 ratio ADM SS WBC (Bld) [#/Vol] 8.4 103/mcL Normal 4.5 - 10.8 10^3/mcL Workflow SS LABORATORYOrdered By: Mitch Farfan on 11-22-2023 PT Coag (PPP) [Time] 12.7 s Normal 9.0 - 1 4.4 seconds [facility] Comment on above: Interpretive Data: E ffective 01/08/08, Protime results may be affected by some antibiotics (i.e. Ciprofloxacin, Azithromycin, Bactrim) which may potentiate the action of oral anticoagulants, with further increases in Protime/INR. PT International Ratio 1.1 ratio Invalid Interpretation Code [facility] SS Comment on above: Interpretive Data: [employer] (CHEST, 1992, 102:312S-25S) recommended therapeutic range for oral anticoagulant therapy is: LOW RISK: Prophylaxis of venous thrombosis INR: 2.0-3.0 Treatment of pulmonary embolism 2.0-3.0 Prevention of systemic embolism 2.0-3.0 HIGH RISK: Mechanical prosthetic valves 2.5-3.5 PROon 11-22-2023 INR Coag (PPP) [Relative time] 1.1 {INR} Normal [facility] ([place]) Comment on above: Result Comment: [employer] (CHEST, 1991, 102:312S-25S) recommended therapeutic range for oral anticoagulant therapy is: LOW RISK: Prophylaxis of venous thrombosis INR: 2.0-3.0 Treatment of pulmonary embolism 2.0-3.0 Prevention of systemic embolism 2.0-3.0 HIGH RISK: Mechanical prosthetic valves 2.5-3.5 Performed By: #### C BC, ADIFF, CMP, ANEU, PRO, GFR ####[place] [id number] [address] [place] [address] PT Coag (PPP) [Time] 12.7 s Normal 9.0-14.4 [facility] ([place]) Comment on above: Result Comment: Effe ctive 01/08/08, Protime results may be affected by some antibiotics (i.e. Ciprofloxacin, Azithromycin, Bactrim) which may potentiate the action of oral anticoagulants, with further increases in Protime/INR. Performed By: #### C BC, ADIFF, CMP, ANEU, PRO, GFR ####[place] [id number] [address] [place] [address] XR CHEST 1 VIEWon 11-22-2023 XR CHEST 1 VIEW Interpreted By: Iam Cisneros and Ohs Zachary STUDY: XR CHEST 1 VIEW; 11/22/2023 8:49 pm INDICATION: Signs/Symptoms:picc line placement. COMPARISON: None. ACCESSION NUMBER(S): [id number] ORDERING CLINICIAN: SULLY ROCHA FINDINGS: AP radiograph of the chest was provided. MEDICAL DEVICES: Right PICC distal tip overlying the lower SVC. CARDIOMEDIASTINAL SILHOUETTE: Cardiomediastinal silhouette is normal in size and configuration. LUNGS: No pneumothorax, pleural effusion or focal consolidation. ABDOMEN: No remarkable upper abdominal findings. BONES: No acute osseous changes. IMPRESSION: 1. No evidence of acute cardiopulmonary process. I personally reviewed the images/study and I agree with the findings as stated by Dr. Tomasz Cedeño. This study was interpreted at [facility], [place], [place]. MACRO: None Signed by: Iam Huerta 11/23/2023 10:29 AM Dictation workstation: [id number] Normal [facility] .Auto Diffon 11-21-2023 Basophil, Absolute 0.0 10 3/mcL Normal 0.0-0.3 [facility] ([place]) Comment on above: Performed By: #### C MP, ANEU, GFR, CBC, ADIFF ####[address] [address] Basophils/100 WBC (Bld) 0.4 % Normal 0.0-2.5 [facility] ([place]) Comment on above: Performed By: #### C MP, ANEU, GFR, CBC, ADIFF ####[address] [address] Eosinophil, Absolute 0.2 10 3/mcL Normal 0.0-0.7 [facility] ([place]) Comment on above: Performed By: #### C MP, ANEU, GFR, CBC, ADIFF ####[address] [address] Eosinophils/100 WBC (Bld) 2.6 % Normal 0.0-6.0 [facility] ([place]) Comment on above: Performed By: #### C MP, ANEU, GFR, CBC, ADIFF ####[address] [address] Lymphocyte, Absolute 1.4 10 3/mcL Normal 0.9-4.3 [facility] ([place] Comment on above: Performed By: #### C MP, ANEU, GFR, CBC, ADIFF ####[address] [address] Lymphocytes/100 WBC (Bld) 17.2 % Low 20.0-40.0 [facility] ([place]) Comment on above: Performed By: #### C MP, ANEU, GFR, CBC, ADIFF ####[address] [address] Monocyte, Absolute 0.7 10 3/mcL Normal 0.1-1.4 [facility] ([place]) Comment on above: Performed By: #### C MP, ANEU, GFR, CBC, ADIFF ####[place] [id number] [place] [address] Monocytes/100 WBC (Bld) 8.3 % Normal 2.0-13.0 [facility] ([place]) Comment on above: Performed By: #### C MP, ANEU, GFR, CBC, ADIFF ####[place] [address] [place] [address] Neutrophils/100 WBC (Bld) 71.5 % Normal 50.0-75.0 [facility] ([place]) Comment on above: Performed By: #### C MP, ANEU, GFR, CBC, ADIFF ####[address] [address] .GFRon 11-21-2023 GFR Non- >60 Normal [facility] ([place]) Comment on above: Result Comment: GFR Population mean for , Non- Americans Ages 20-29 = 116 mL/min/1.73 sq.m. Ages 30-39 = 107 mL/min/1.73 sq.m. Ages 40-49 = 99 mL/min/1.73 sq.m. Ages 50-59 = 93 mL/min/1.73 sq.m. Ages 60-69 = 85 mL/min/1.73 sq.m. Ages 70+ = 75 mL/min/1.73 sq.m. Chronic Kidney Disease: Less than 60 mL/min/1.73 square meters End Stage Renal Disease: Less than 15 mL/min/1.73 square meters Performed By: #### C MP, ANEU, GFR, CBC, ADIFF ####[address] [address] GFR >60 Normal [facility] ([place]) Comment on above: Result Comment: GFR Population mean for , Non- Americans Ages 20-29 = 116 mL/min/1.73 sq.m. Ages 30-39 = 107 mL/min/1.73 sq.m. Ages 40-49 = 99 mL/min/1.73 sq.m. Ages 50-59 = 93 mL/min/1.73 sq.m. Ages 60-69 = 85 mL/min/1.73 sq.m. Ages 70+ = 75 mL/min/1.73 sq.m. Chronic Kidney Disease: Less than 60 mL/min/1.73 square meters End Stage Renal Disease: Less than 15 mL/min/1.73 square meters Performed By: #### C MP, ANEU, GFR, CBC, ADIFF ####[place] [address] .NEUABSon 11-21-2023 Neutrophil, Absolute 6.0 10 3/mcL Normal 2.3-8.1 [facility] ([place]) Comment on above: Performed By: #### C MP, ANEU, GFR, CBC, ADIFF ####[place] [address] CBCon 11-21-2023 Erythrocyte distribution width (RBC) [Ratio] 15.7 % High 11.5-15.5 [facility] ([place]) Comment on above: Performed By: #### C MP, ANEU, GFR, CBC, ADIFF ####[place] [address] Hematocrit (Bld) [Volume fraction] 32.4 % Low 40.0-52.0 [facility] ([place]) Comment on above: Performed By: #### C MP, ANEU, GFR, CBC, ADIFF ####[place] [address] Hgb 10.8 G/dL Low 13.0-17.5 [facility] ([place]) Comment on above: Performed By: #### C MP, ANEU, GFR, CBC, ADIFF ####[place] [address] MCH (RBC) [Entitic mass] 29.2 pg Normal 27.0-33.0 [facility] ([place]) Comment on above: Performed By: #### C MP, ANEU, GFR, CBC, ADIFF ####[place] [address] MCHC 33.3 G/dL Normal 32.0-36.0 [facility] ([place] Comment on above: Performed By: #### C MP, ANEU, GFR, CBC, ADIFF ####[address] [address] MCV (RBC) [Entitic vol] 87.5 fL Normal 81.0-100.0 [facility] ([place]) Comment on above: Performed By: #### C MP, ANEU, GFR, CBC, ADIFF ####[place] [address] Platelet 462 10 3/mcL High 150-450 [facility] ([place] Comment on above: Performed By: #### C MP, ANEU, GFR, CBC, ADIFF ####[place] [address] Platelet mean volume (Bld) [Entitic vol] 8.1 fL Normal 6.4-10.5 [facility] ([place]) Comment on above: Performed By: #### C MP, ANEU, GFR, CBC, ADIFF ####[place] [address] RBC 3.70 10 6/mcL Low 4.50-6.00 [facility] ([place] Comment on above: Performed By: #### C MP, ANEU, GFR, CBC, ADIFF ####[place] [address] WBC 8.4 10 3/mcL Normal 4.5-10.8 [facility] ([place]) Comment on above: Performed By: #### C MP, ANEU, GFR, CBC, ADIFF ####[place] [address] CMPon 11-21-2023 Albumin Level 1.9 G/dL Low 3.2-4.8 [facility] ([place]) Comment on above: Performed By: #### C MP, ANEU, GFR, CBC, ADIFF ####[place] [address] Albumin/Globulin [Mass ratio] 0.4 {ratio} Low 0.9-1.6 [facility] ([place]) Comment on above: Performed By: #### C MP, ANEU, GFR, CBC, ADIFF ####[place] [address] ALP [Catalytic activity/Vol] 134 U/L High 38-126 [facility] ([place] Comment on above: Performed By: #### C MP, ANEU, GFR, CBC, ADIFF ####[address] [address] ALT [Catalytic activity/Vol] 14 U/L Normal 12-55 [facility] ([place] Comment on above: Performed By: #### C MP, ANEU, GFR, CBC, ADIFF ####[address] [address] AST [Catalytic activity/Vol] 15 U/L Normal 8-34 [facility] ([place] Comment on above: Performed By: #### C MP, ANEU, GFR, CBC, ADIFF ####[address] [address] Bili Total 0.20 mg/dL Normal 0.20-1.20 [facility] ([place]) Comment on above: Result Comment: Use of this assay is not recommended for patients undergoing treatment with eltrombopag due to the potential for falsely elevated results. Performed By: #### C MP, ANEU, GFR, CBC, ADIFF ####[place] [address] BUN/Creatinine Ratio 13.8 ratio Normal 10.0-22.0 [facility] ([place]) Comment on above: Performed By: #### C MP, ANEU, GFR, CBC, ADIFF ####[address] [address] Calcium [Mass/Vol] 8.9 mg/dL Normal 8.7-10.4 [facility] ([place]) Comment on above: Performed By: #### C MP, ANEU, GFR, CBC, ADIFF ####[address] [address] Chloride [Moles/Vol] 102 mmol/L Normal 98-110 [facility] ([place]) Comment on above: Performed By: #### C MP, ANEU, GFR, CBC, ADIFF ####[address] [address] CO2 [Moles/Vol] 32 mmol/L Normal 22-32 [facility] ([place]) Comment on above: Performed By: #### C MP, ANEU, GFR, CBC, ADIFF ####[place] [address] Creatinine [Mass/Vol] 0.87 mg/dL Normal 0.60-1.40 [facility] ([place]) Comment on above: Performed By: #### C MP, ANEU, GFR, CBC, ADIFF ####[place] [address] Electrolyte Balance 5.0 mEq/L Normal 4.0-15.0 [facility] ([place]) Comment on above: Performed By: #### C MP, ANEU, GFR, CBC, ADIFF ####[place] [address] Globulin 4.3 G/dL High 1.5-3.8 [facility] ([place]) Comment on above: Performed By: #### C MP, ANEU, GFR, CBC, ADIFF ####[place] [address] Glucose [Mass/Vol] 136 mg/dL High 82-115 [facility] ([place]) Comment on above: Performed By: #### C MP, ANEU, GFR, CBC, ADIFF ####[place] [address] Potassium [Moles/Vol] 4.1 mmol/L Normal 3.5-5.0 [facility] ([place] Comment on above: Performed By: #### C MP, ANEU, GFR, CBC, ADIFF ####[place] [address] Sodium [Moles/Vol] 139 mmol/L Normal 136-145 [facility] ([place]) Comment on above: Performed By: #### C MP, ANEU, GFR, CBC, ADIFF ####[place] [address] Total Protein 6.2 G/dL Normal 5.7-8.2 [facility] ([place]) Comment on above: Result Comment: No te - New Reference Range in effect 20 Performed By: #### C MP, ANEU, GFR, CBC, ADIFF ####[facility] [place] [address] Urea nitrogen [Mass/Vol] 12.0 mg/dL Normal 8.0-22.0 [facility] ([place]) Comment on above: Performed By: #### C MP, ANEU, GFR, CBC, ADIFF ####[place] [address] [place] [address] Final Surgical Pathology Rep [facility] 11-21-2023 Final Surgical Pathology Report . Pathology Reports Accession: Collected Date/Time: Received Date/Time: Pathologist: [id number] 11/16/2023 14:27 EDT 11/16/2023 15:15 EDT ALYCIA HARLEY MD Final Surgical Pathology Report DIAGNOSIS: LIVER, NEEDLE CORE BIOPSY: - DENSE FIBROUS TISSUE WITH MARKED ACUTE INFLAMMATION, FRAGMENTS OF FIBRINOPURULENT DEBRIS AND REACTIVE CHANGES. NO DEFINITE EVIDENCE OF MALIGNANCY IN THIS BIOPSY SPECIMEN. MOST CONSISTENT WITH ABSCESS. CLINICAL FOLLOW-UP INDICATED Comment: Immunohistochemical studies (arginase, CDX2, CEA, CK7, CK20, GATA3, HepPar,, moc31, NKX 3, PAX8, PSA, TTF-1) are used in evaluation and show no definite evidence of malignancy CLINICAL INFORMATION: LIVER MASS VERSUS ABSCESS Procedure: ASPIRATION Preoperative diagnosis: LIVER LESION Postoperative diagnosis: LIVER LESION SPECIMEN: A LIVER BX GROSS DESCRIPTION: All parts labelled with patient name and [id number] Received in formalin labelled "undesignated on the container" Are multiple cylindrical soft tissue cores and core fragments ranging from less than 0.1 to 0.7 cm. TS-2 Sherri Fleming, Pathologists' Surgical Instrument Maker (ASCP) Dictated by SHERRI FLEMING MICROSCOPIC DESCRIPTION: The microscopic examination is performed, except in the case of Gross Only. Electronically Signed by Pathology Report verified by [facility] ALYCIA HARLEY Sign out Date: 11/21/2023 12:32 Performing Lab: [facility], [address] [place] [address] Pathology Dept Disclaimer If ancillary studies were utilized, the following Laboratory Developed Test (LDT) disclaimer will apply: Under CLIA requirements, [facility] is qualified to perform high complexity testing. For all ancillary stains, positive and negative controls stain appropriately. Performance characteristics of immunohistochemical and chromogenic in-situ hybridization tests have been determined by [facility]. These tests are used for clinical purposes, They should not be regarded as investigational or for research. Normal [facility] ([place]) LABORATORYOrdered By: Huey Goetz on 11-21-2023 Blood Glucose Testing Reason Routine (11/21/23 9:14 PM) [facility] LABORATORYOrdered By: SYSTEM SYSTEM on 11-21-2023 Albumin BCP dye [Mass/Vol] 1.9 G/dL Low 3.2 - 4.8 G/dL ADM SS Albumin/Globulin [Mass ratio] 0.4 {ratio} Low 0.9 - 1.6 ratio AH ADM SS ALP [Catalytic activity/Vol] 134 U/L High 38 - 126 U/L ADM SS ALT No additional P-5'-P [Catalytic activity/Vol] 14 U/L Normal 12 - 55 U/L AH ADM SS AST [Catalytic activity/Vol] 15 U/L Normal 8 - 34 U/L ADM SS Basophils (Bld) [#/Vol] 0.0 103/mcL Normal 0.0 - 0.3 10^3/mcL AH Workflow SS Basophils/100 WBC (Bld) 0.4 % Normal 0.0 - 2.5 % AH Workflow SS Bilirubin [Mass/Vol] 0.20 mg/dL Normal 0.20 - 1.20 mg/dL AH ADM SS Comment on above: Interpretive Data: U se of this assay is not recommended for patients undergoing treatment with eltrombopag due to the potential for falsely elevated results. Calcium [Mass/Vol] 8.9 mg/dL Normal 8.7 - 10. 4 mg/dL AH ADM SS Chloride [Moles/Vol] 102 mmol/L Normal 98 - 11 0 mEq/L AH ADM SS CO2 [Moles/Vol] 32 mmol/L Normal 22 - 32 mEq/L AH ADM SS Creatinine [Mass/Vol] 0.87 mg/dL Normal 0.60 - 1.40 mg/dL AH ADM SS Electrolyte Balance 5.0 mEq/L Normal 4.0 - 15 .0 mEq/L AH ADM SS Eosinophils (Bld) [#/Vol] 0.2 103/mcL Normal 0.0 - 0.7 10^3/mcL Workflow SS Eosinophils/100 WBC (Bld) 2.6 % Normal 0.0 - 6.0 % Workflow SS Erythrocyte distribution width (RBC) [Ratio] 15.7 % High 11.5 - 15.5 % Workflow SS GFR/1.73 sq M.predicted among blacks MDRD (S/P/Bld) [Vol rate/Area] ml/min/1.73sqm Invalid Interpretation Code Chemistry S Comment on above: Interpretive Data: GFR Population mean for , Non- Americans Ages 20-29 = 116 mL/min/1.73 sq.m. Ages 30-39 = 107 mL/min/1.73 sq.m. Ages 40-49 = 99 mL/min/1.73 sq.m. Ages 50-59 = 93 mL/min/1.73 sq.m. Ages 60-69 = 85 mL/min/1.73 sq.m. Ages 70+ = 75 mL/min/1.73 sq.m. Chronic Kidney Disease: Less than 60 mL/min/1.73 square meters End Stage Renal Disease: Less than 15 mL/min/1.73 square meters GFR/1.73 sq M.predicted among non-blacks MDRD (S/P/Bld) [Vol rate/Area] ml/min/1.73sqm Invalid Interpretation Code Chemistry S Comment on above: Interpretive Data: GFR Population mean for , Non- Americans Ages 20-29 = 116 mL/min/1.73 sq.m. Ages 30-39 = 107 mL/min/1.73 sq.m. Ages 40-49 = 99 mL/min/1.73 sq.m. Ages 50-59 = 93 mL/min/1.73 sq.m. Ages 60-69 = 85 mL/min/1.73 sq.m. Ages 70+ = 75 mL/min/1.73 sq.m. Chronic Kidney Disease: Less than 60 mL/min/1.73 square meters End Stage Renal Disease: Less than 15 mL/min/1.73 square meters Globulin 4.3 G/dL High 1.5 - 3.8 G/dL ADM SS Glucose [Mass/Vol] 136 mg/dL High 82 - 115 mg/dL ADM SS Hematocrit (Bld) [Volume fraction] 32.4 % Low 40.0 - 52.0 % AH Workflow SS Hemoglobin (Bld) [Mass/Vol] 10.8 G/dL Low 13.0 - 17.5 G/dL AH Workflow SS Lymphocytes (Bld) [#/Vol] 1.4 103/mcL Normal 0.9 - 4.3 10^3/mcL AH Workflow SS Lymphocytes/100 WBC (Bld) 17.2 % Low 20.0 - 40.0 % AH Workflow SS MCH (RBC) [Entitic mass] 29.2 pg Normal 27.0 - 33.0 pg AH Workflow SS MCHC 33.3 G/dL Normal 32.0 - 36.0 G/dL AH Workflow SS MCV (RBC) [Entitic vol] 87.5 fL Normal 81.0 - 100.0 fL AH Workflow SS Monocytes (Bld) [#/Vol] 0.7 103/mcL Normal 0.1 - 1.4 10^3/mcL AH Workflow SS Monocytes/100 WBC (Bld) 8.3 % Normal 2.0 - 13.0 % AH Workflow SS Neutrophils (Bld) [#/Vol] 6.0 103/mcL Normal 2.3 - 8.1 10^3/mcL AH Workflow SS Neutrophils/100 WBC (Bld) 71.5 % Normal 50.0 - 75.0 % AH Workflow SS Platelet mean volume (Bld) [Entitic vol] 8.1 fL Normal 6.4 - 10.5 fL AH Workflow SS Platelets (Bld) [#/Vol] 462 103/mcL High 150 - 450 10^3/mcL AH Workflow SS Potassium [Moles/Vol] 4.1 mmol/L Normal 3.5 - 5.0 mEq/L AH ADM SS Protein [Mass/Vol] 6.2 G/dL Normal 5.7 - 8.2 G/dL AH ADM SS Comment on above: Interpretive Data: * *Note - New Reference Range in effect 20 RBC (Bld) [#/Vol] 3.70 106/mcL Low 4.50 - 6.0 0 10^6/mcL AH Workflow SS Sodium [Moles/Vol] 139 mmol/L Normal 136 - 145 mEq/L AH ADM SS Urea nitrogen [Mass/Vol] 12.0 mg/dL Normal 8.0 - 22.0 mg/dL AH ADM SS Urea nitrogen/Creatinine [Mass ratio] 13.8 ratio Normal 10.0 - 22.0 ratio AH ADM SS WBC (Bld) [#/Vol] 8.4 103/mcL Normal 4.5 - 10.8 10^3/mcL AH Workflow SS LABORATORYOrdered By: Stevenson gonzalez on 11-20-2023 Blood Glucose Interventions Administered agent to decrease blood sugar (11/20/23 8:00 PM) [facility] Blood Glucose Interventions Administered agent to decrease blood sugar (11/20/23 5:44 PM) [facility] MRI LIVERon 11-20-2023 MRI LIVER ORIGINAL EXAMINATION: MRI OF THE ABDOMEN LIMITED WITH CONTRAST, 11/19/2023 9:33 am TECHNIQUE: Multiplanar multisequence MRI of the abdomen limited was performed with the administration of intravenous contrast. COMPARISON: None. HISTORY: ORDERING SYSTEM PROVIDED HISTORY: Reason for Exam: Pancreatitis, R/O gallstones FINDINGS: Trace right pleural effusion. There is susceptibility Artifact within the anterior abdominal wall, possibly related to prior surgery. Correlate clinically. There are heterogeneous enlarged right hepatic masses, with associated linear susceptibility artifact extending to the right anterior abdominal wall, most consistent with a surgical drain. Multilobulated rim enhancing heterogeneous right hepatic masses measure up to 11.2 x 7.1 cm in conglomerate. This appears similar compared with prior CT scan. There is a central hyperintensity on diffusion-weighted imaging, with corresponding hypointensity on ADC map, most consistent with hepatic abscess formation. There is hypoenhancement of the right hepatic lobe within segment and to lesser extent VII, which may be related to variations in perfusion. There is no corresponding signal abnormality on T1 and T2 weighted imaging. Hyacinth hepatis lymphadenopathy enlarged hyacinth hepatis lymph node measures up to 3 x 1.7 cm. There is a 4.1 x 2.9 cm T2 hypointense, mildly T1 hyperintense mass centered upon the pancreatic head, with mildly heterogeneous low level enhancement. The remainder of the pancreas is largely atrophic. The pancreatic duct is not visualized. There is no biliary ductal dilatation. Mild beaded appearance of the common bile duct. There is no biliary ductal dilatation. The common duct measures up to 6 mm maximally. There is no intrahepatic biliary ductal dilatation. A simple right renal midportion subcentimeter cyst is noted. IMPRESSION: 1. A 4.1 x 2.9 cm mass centered upon the pancreatic head, with mildly heterogeneous low level enhancement. There is no definite associated restricted diffusion. The remainder of the pancreas is largely atrophic. Considerations include but are not limited to mass forming pancreatitis and pancreatic neoplasm. 2. Heterogeneous enlarged right hepatic masses, containing a surgical drain. Findings are most consistent with abscess formation. Necrotic neoplasm cannot be entirely excluded. 3. Beaded appearance of the common bile duct, without biliary ductal dilatation. Findings raise concern for cholangitis (i.e. Infectious/ischemic/inf lammatory). 4. Hyacinth hepatis lymphadenopathy. 5. Trace right pleural effusion. Interpreted by: Melissa Holloway Preliminary Report By: Melissa Holloway Electronically signed By Melissa Holloway Dictated Date: 11/20/2023 10:04:48 AM Prelim Date: 11/20/2023 10:39:53 AM Sign Date: 11/20/2023 10:39:53 AM Ordering Provider: ATIF [employer]oples [facility] ([place]) .Auto Diffon 11-18-2023 Basophil, Absolute 0.1 10 3/mcL Normal 0.0-0.3 [facility] ([place]) Comment on above: Performed By: #### C MP, ANEU, ADIFF, CBC, PRO, GFR ####[address] [address] Basophils/100 WBC (Bld) 1.0 % Normal 0.0-2.5 [facility] ([place]) Comment on above: Performed By: #### C MP, ANEU, ADIFF, CBC, PRO, GFR ####[address] [address] Eosinophil, Absolute 0.2 10 3/mcL Normal 0.0-0.7 [facility] ([place]) Comment on above: Performed By: #### C MP, ANEU, ADIFF, CBC, PRO, GFR ####[address] [address] Eosinophils/100 WBC (Bld) 1.9 % Normal 0.0-6.0 [facility] ([place]) Comment on above: Performed By: #### C MP, ANEU, ADIFF, CBC, PRO, GFR ####[address] [address] Lymphocyte, Absolute 0.9 10 3/mcL Normal 0.9-4.3 [facility] ([place] Comment on above: Performed By: #### C MP, ANEU, ADIFF, CBC, PRO, GFR ####[address] [address] Lymphocytes/100 WBC (Bld) 11.1 % Low 20.0-40.0 [facility] ([place]) Comment on above: Performed By: #### C MP, ANEU, ADIFF, CBC, PRO, GFR ####[address] [address] Monocyte, Absolute 0.7 10 3/mcL Normal 0.1-1.4 [facility] ([place]) Comment on above: Performed By: #### C MP, ANEU, ADIFF, CBC, PRO, GFR ####[address] [address] Monocytes/100 WBC (Bld) 9.1 % Normal 2.0-13.0 [facility] ([place]) Comment on above: Performed By: #### C MP, ANEU, ADIFF, CBC, PRO, GFR ####[address] [address] Neutrophils/100 WBC (Bld) 76.9 % High 50.0-75.0 [facility] ([place]) Comment on above: Performed By: #### C MP, ANEU, ADIFF, CBC, PRO, GFR ####[address] [address] .GFRon 11-18-2023 GFR >60 Normal [facility] ([place]) Comment on above: Result Comment: GFR Population mean for , Non- Americans Ages 20-29 = 116 mL/min/1.73 sq.m. Ages 30-39 = 107 mL/min/1.73 sq.m. Ages 40-49 = 99 mL/min/1.73 sq.m. Ages 50-59 = 93 mL/min/1.73 sq.m. Ages 60-69 = 85 mL/min/1.73 sq.m. Ages 70+ = 75 mL/min/1.73 sq.m. Chronic Kidney Disease: Less than 60 mL/min/1.73 square meters End Stage Renal Disease: Less than 15 mL/min/1.73 square meters Performed By: #### C MP, ANEU, ADIFF, CBC, PRO, GFR ####[address] [address] GFR Non- >60 Normal [facility] ([place]) Comment on above: Result Comment: GFR Population mean for , Non- Americans Ages 20-29 = 116 mL/min/1.73 sq.m. Ages 30-39 = 107 mL/min/1.73 sq.m. Ages 40-49 = 99 mL/min/1.73 sq.m. Ages 50-59 = 93 mL/min/1.73 sq.m. Ages 60-69 = 85 mL/min/1.73 sq.m. Ages 70+ = 75 mL/min/1.73 sq.m. Chronic Kidney Disease: Less than 60 mL/min/1.73 square meters End Stage Renal Disease: Less than 15 mL/min/1.73 square meters Performed By: #### C MP, ANEU, ADIFF, CBC, PRO, GFR ####[place] [address] .NEUABSon 11-18-2023 Neutrophil, Absolute 6.1 10 3/mcL Normal 2.3-8.1 [facility] ([place]) Comment on above: Performed By: #### C MP, ANEU, ADIFF, CBC, PRO, GFR ####[place] [address] CBCon 11-18-2023 Erythrocyte distribution width (RBC) [Ratio] 15.0 % Normal 11.5-15.5 [facility] ([place]) Comment on above: Performed By: #### C MP, ANEU, ADIFF, CBC, PRO, GFR ####[place] [address] Hematocrit (Bld) [Volume fraction] 29.8 % Low 40.0-52.0 [facility] ([place] Comment on above: Performed By: #### C MP, ANEU, ADIFF, CBC, PRO, GFR ####[place] [address] Hgb 10.1 G/dL Low 13.0-17.5 [facility] ([place] Comment on above: Performed By: #### C MP, ANEU, ADIFF, CBC, PRO, GFR ####[place] [address] MCH (RBC) [Entitic mass] 29.7 pg Normal 27.0-33.0 [facility] ([place] Comment on above: Performed By: #### C MP, ANEU, ADIFF, CBC, PRO, GFR ####[place] [address] MCHC 33.9 G/dL Normal 32.0-36.0 [facility] ([place] Comment on above: Performed By: #### C MP, ANEU, ADIFF, CBC, PRO, GFR ####[place] [address] MCV (RBC) [Entitic vol] 87.7 fL Normal 81.0-100.0 [facility] ([place] Comment on above: Performed By: #### C MP, ANEU, ADIFF, CBC, PRO, GFR ####[place] [address] Platelet 353 10 3/mcL Normal 150-450 [facility] ([place] Comment on above: Performed By: #### C MP, ANEU, ADIFF, CBC, PRO, GFR ####[place] [address] Platelet mean volume (Bld) [Entitic vol] 8.5 fL Normal 6.4-10.5 [facility] ([place] Comment on above: Performed By: #### C MP, ANEU, ADIFF, CBC, PRO, GFR ####[place] [address] RBC 3.39 10 6/mcL Low 4.50-6.00 [facility] ([place]) Comment on above: Performed By: #### C MP, ANEU, ADIFF, CBC, PRO, GFR ####[place] [address] WBC 7.9 10 3/mcL Normal 4.5-10.8 [facility] ([place]) Comment on above: Performed By: #### C MP, ANEU, ADIFF, CBC, PRO, GFR ####[place] [address] CMPon 11-18-2023 Albumin Level 1.4 G/dL Low 3.2-4.8 [facility] ([place]) Comment on above: Performed By: #### C MP, ANEU, ADIFF, CBC, PRO, GFR ####[place] [address] Albumin/Globulin [Mass ratio] 0.4 {ratio} Low 0.9-1.6 [facility] ([place]) Comment on above: Performed By: #### C MP, ANEU, ADIFF, CBC, PRO, GFR ####[place] [address] ALP [Catalytic activity/Vol] 105 U/L Normal 38-126 [facility] ([place] Comment on above: Performed By: #### C MP, ANEU, ADIFF, CBC, PRO, GFR ####[place] [address] ALT [Catalytic activity/Vol] 17 U/L Normal 12-55 [facility] ([place] Comment on above: Performed By: #### C MP, ANEU, ADIFF, CBC, PRO, GFR ####[place] [address] AST [Catalytic activity/Vol] 18 U/L Normal 8-34 [facility] ([place] Comment on above: Performed By: #### C MP, ANEU, ADIFF, CBC, PRO, GFR ####[place] [address] Bili Total 0.30 mg/dL Normal 0.20-1.20 [facility] ([place]) Comment on above: Result Comment: Use of this assay is not recommended for patients undergoing treatment with eltrombopag due to the potential for falsely elevated results. Performed By: #### C MP, ANEU, ADIFF, CBC, PRO, GFR ####[place] [address] BUN/Creatinine Ratio 7.8 ratio Low 10.0-22.0 [facility] ([place] Comment on above: Performed By: #### C MP, ANEU, ADIFF, CBC, PRO, GFR ####[place] [address] Calcium [Mass/Vol] 8.1 mg/dL Low 8.7-10.4 [facility] ([place]) Comment on above: Performed By: #### C MP, ANEU, ADIFF, CBC, PRO, GFR ####[place] [address] Chloride [Moles/Vol] 107 mmol/L Normal 98-110 [facility] ([place] Comment on above: Performed By: #### C MP, ANEU, ADIFF, CBC, PRO, GFR ####[place] [id number] CO2 [Moles/Vol] 28 mmol/L Normal 22-32 [facility] ([place]) Comment on above: Performed By: #### C MP, ANEU, ADIFF, CBC, PRO, GFR ####[place] [address] Creatinine [Mass/Vol] 0.77 mg/dL Normal 0.60-1.40 [facility] ([place] Comment on above: Performed By: #### C MP, ANEU, ADIFF, CBC, PRO, GFR ####[place] [address] Electrolyte Balance 6.0 mEq/L Normal 4.0-15.0 [facility] ([place]) Comment on above: Performed By: #### C MP, ANEU, ADIFF, CBC, PRO, GFR ####[place] [address] Globulin 3.7 G/dL Normal 1.5-3.8 [facility]ly [facility] ([place]) Comment on above: Performed By: #### C MP, ANEU, ADIFF, CBC, PRO, GFR ####[place] [address] Glucose [Mass/Vol] 137 mg/dL High 82-115 [facility] ([place]) Comment on above: Performed By: #### C MP, ANEU, ADIFF, CBC, PRO, GFR ####[address] [address] Potassium [Moles/Vol] 4.0 mmol/L Normal 3.5-5.0 [facility]ly [facility], 1928–[facility] ([place]) Comment on above: Performed By: #### C MP, ANEU, ADIFF, CBC, PRO, GFR ####[address] [address] Sodium [Moles/Vol] 141 mmol/L Normal 136-145 [facility] ([place]) Comment on above: Performed By: #### C MP, ANEU, ADIFF, CBC, PRO, GFR ####[address] [address] Total Protein 5.1 G/dL Low 5.7-8.2 [facility] ([place]) Comment on above: Result Comment: No te - New Reference Range in effect 20 Performed By: #### C MP, ANEU, ADIFF, CBC, PRO, GFR ####[place] [address] Urea nitrogen [Mass/Vol] 6.0 mg/dL Low 8.0-22.0 [facility] ([place]) Comment on above: Performed By: #### C MP, ANEU, ADIFF, CBC, PRO, GFR ####[address] [address] LABORATORYOrdered By: SYSTEM SYSTEM on 11-18-2023 Albumin BCP dye [Mass/Vol] 1.4 G/dL Low 3.2 - 4.8 G/dL ADM SS Albumin/Globulin [Mass ratio] 0.4 {ratio} Low 0.9 - 1.6 ratio AH ADM SS ALP [Catalytic activity/Vol] 105 U/L Normal 38 - 126 U/L ADM SS ALT No additional P-5'-P [Catalytic activity/Vol] 17 U/L Normal 12 - 55 U/L ADM SS AST [Catalytic activity/Vol] 18 U/L Normal 8 - 34 U/L AH ADM SS Basophils (Bld) [#/Vol] 0.1 103/mcL Normal 0.0 - 0.3 10^3/mcL AH Workflow SS Basophils/100 WBC (Bld) 1.0 % Normal 0.0 - 2.5 % Workflow SS Bilirubin [Mass/Vol] 0.30 mg/dL Normal 0.20 - 1.20 mg/dL ADM SS Comment on above: Interpretive Data: U se of this assay is not recommended for patients undergoing treatment with eltrombopag due to the potential for falsely elevated results. Calcium [Mass/Vol] 8.1 mg/dL Low 8.7 - 10. 4 mg/dL ADM SS Chloride [Moles/Vol] 107 mmol/L Normal 98 - 11 0 mEq/L ADM SS CO2 [Moles/Vol] 28 mmol/L Normal 22 - 32 mEq/L ADM SS Creatinine [Mass/Vol] 0.77 mg/dL Normal 0.60 - 1.40 mg/dL ADM SS Electrolyte Balance 6.0 mEq/L Normal 4.0 - 15 .0 mEq/L ADM SS Eosinophils (Bld) [#/Vol] 0.2 103/mcL Normal 0.0 - 0.7 10^3/mcL Workflow SS Eosinophils/100 WBC (Bld) 1.9 % Normal 0.0 - 6.0 % Workflow SS Erythrocyte distribution width (RBC) [Ratio] 15.0 % Normal 11.5 - 15.5 % Workflow SS GFR/1.73 sq M.predicted among blacks MDRD (S/P/Bld) [Vol rate/Area] ml/min/1.73sqm Invalid Interpretation Code Chemistry S Comment on above: Interpretive Data: GFR Population mean for , Non- Americans Ages 20-29 = 116 mL/min/1.73 sq.m. Ages 30-39 = 107 mL/min/1.73 sq.m. Ages 40-49 = 99 mL/min/1.73 sq.m. Ages 50-59 = 93 mL/min/1.73 sq.m. Ages 60-69 = 85 mL/min/1.73 sq.m. Ages 70+ = 75 mL/min/1.73 sq.m. Chronic Kidney Disease: Less than 60 mL/min/1.73 square meters End Stage Renal Disease: Less than 15 mL/min/1.73 square meters GFR/1.73 sq M.predicted among non-blacks MDRD (S/P/Bld) [Vol rate/Area] ml/min/1.73sqm Invalid Interpretation Code Chemistry S Comment on above: Interpretive Data: GFR Population mean for , Non- Americans Ages 20-29 = 116 mL/min/1.73 sq.m. Ages 30-39 = 107 mL/min/1.73 sq.m. Ages 40-49 = 99 mL/min/1.73 sq.m. Ages 50-59 = 93 mL/min/1.73 sq.m. Ages 60-69 = 85 mL/min/1.73 sq.m. Ages 70+ = 75 mL/min/1.73 sq.m. Chronic Kidney Disease: Less than 60 mL/min/1.73 square meters End Stage Renal Disease: Less than 15 mL/min/1.73 square meters Globulin 3.7 G/dL Normal 1.5 - 3.8 G/dL AH ADM SS Glucose [Mass/Vol] 137 mg/dL High 82 - 115 mg/dL ADM SS Hematocrit (Bld) [Volume fraction] 29.8 % Low 40.0 - 52.0 % AH Workflow SS Hemoglobin (Bld) [Mass/Vol] 10.1 G/dL Low 13.0 - 17.5 G/dL AH Workflow SS Lymphocytes (Bld) [#/Vol] 0.9 103/mcL Normal 0.9 - 4.3 10^3/mcL AH Workflow SS Lymphocytes/100 WBC (Bld) 11.1 % Low 20.0 - 40.0 % AH Workflow SS MCH (RBC) [Entitic mass] 29.7 pg Normal 27.0 - 33.0 pg AH Workflow SS MCHC 33.9 G/dL Normal 32.0 - 36.0 G/dL AH Workflow SS MCV (RBC) [Entitic vol] 87.7 fL Normal 81.0 - 100.0 fL AH Workflow SS Monocytes (Bld) [#/Vol] 0.7 103/mcL Normal 0.1 - 1.4 10^3/mcL AH Workflow SS Monocytes/100 WBC (Bld) 9.1 % Normal 2.0 - 13.0 % AH Workflow SS Neutrophils (Bld) [#/Vol] 6.1 103/mcL Normal 2.3 - 8.1 10^3/mcL Workflow SS Neutrophils/100 WBC (Bld) 76.9 % High 50.0 - 75.0 % Workflow SS Platelet mean volume (Bld) [Entitic vol] 8.5 fL Normal 6.4 - 10.5 fL Workflow SS Platelets (Bld) [#/Vol] 353 103/mcL Normal 150 - 450 10^3/mcL Workflow SS Potassium [Moles/Vol] 4.0 mmol/L Normal 3.5 - 5.0 mEq/L ADM SS Protein [Mass/Vol] 5.1 G/dL Low 5.7 - 8.2 G/dL ADM SS Comment on above: Interpretive Data: * *Note - New Reference Range in effect 20 RBC (Bld) [#/Vol] 3.39 106/mcL Low 4.50 - 6.0 0 10^6/mcL Workflow SS Sodium [Moles/Vol] 141 mmol/L Normal 136 - 145 mEq/L ADM SS Urea nitrogen [Mass/Vol] 6.0 mg/dL Low 8.0 - 22.0 mg/dL ADM SS Urea nitrogen/Creatinine [Mass ratio] 7.8 ratio Low 10.0 - 22.0 ratio ADM SS WBC (Bld) [#/Vol] 7.9 103/mcL Normal 4.5 - 10.8 10^3/mcL Workflow SS LABORATORYOrdered By: Mitch Farfan on 11-18-2023 PT Coag (PPP) [Time] 14.6 s High 9.0 - 1 4.4 seconds [facility] Comment on above: Interpretive Data: E ffective 01/08/08, Protime results may be affected by some antibiotics (i.e. Ciprofloxacin, Azithromycin, Bactrim) which may potentiate the action of oral anticoagulants, with further increases in Protime/INR. PT International Ratio 1.3 ratio Invalid Interpretation Code [facility] SS Comment on above: Interpretive Data: [employer] (CHEST, 1992, 102:312S-25S) recommended therapeutic range for oral anticoagulant therapy is: LOW RISK: Prophylaxis of venous thrombosis INR: 2.0-3.0 Treatment of pulmonary embolism 2.0-3.0 Prevention of systemic embolism 2.0-3.0 HIGH RISK: Mechanical prosthetic valves 2.5-3.5 PROon 11-18-2023 INR Coag (PPP) [Relative time] 1.3 {INR} Normal [facility] ([place]) Comment on above: Result Comment: [employer] (CHEST, 1991, 102:312S-25S) recommended therapeutic range for oral anticoagulant therapy is: LOW RISK: Prophylaxis of venous thrombosis INR: 2.0-3.0 Treatment of pulmonary embolism 2.0-3.0 Prevention of systemic embolism 2.0-3.0 HIGH RISK: Mechanical prosthetic valves 2.5-3.5 Performed By: #### C MP, ANEU, ADIFF, CBC, PRO, GFR ####[place] [address] PT Coag (PPP) [Time] 14.6 s High 9.0-14.4 [facility] ([place]) Comment on above: Result Comment: Effe ctive 01/08/08, Protime results may be affected by some antibiotics (i.e. Ciprofloxacin, Azithromycin, Bactrim) which may potentiate the action of oral anticoagulants, with further increases in Protime/INR. Performed By: #### C MP, ANEU, ADIFF, CBC, PRO, GFR ####[place] [address] .Auto Diffon 11-17-2023 Basophil, Absolute 0.0 10 3/mcL Normal 0.0-0.3 [facility] ([place]) Comment on above: Performed By: #### C MP, ADIFF, GFR, PRO, ANEU, CBC ####[place] [address] Basophils/100 WBC (Bld) 0.6 % Normal 0.0-2.5 [facility] ([place]) Comment on above: Performed By: #### C MP, ADIFF, GFR, PRO, ANEU, CBC ####[place] [address] Eosinophil, Absolute 0.1 10 3/mcL Normal 0.0-0.7 [facility] ([place]) Comment on above: Performed By: #### C MP, ADIFF, GFR, PRO, ANEU, CBC ####[address] [address] Eosinophils/100 WBC (Bld) 1.0 % Normal 0.0-6.0 [facility] ([place]) Comment on above: Performed By: #### C MP, ADIFF, GFR, PRO, ANEU, CBC ####[address] [address] Lymphocyte, Absolute 0.7 10 3/mcL Low 0.9-4.3 [facility] ([place]) Comment on above: Performed By: #### C MP, ADIFF, GFR, PRO, ANEU, CBC ####[address] [address] Lymphocytes/100 WBC (Bld) 8.7 % Low 20.0-40.0 [facility] ([place]) Comment on above: Performed By: #### C MP, ADIFF, GFR, PRO, ANEU, CBC ####[address] [address] Monocyte, Absolute 0.9 10 3/mcL Normal 0.1-1.4 [facility] ([place]) Comment on above: Performed By: #### C MP, ADIFF, GFR, PRO, ANEU, CBC ####[address] [address] Monocytes/100 WBC (Bld) 11.1 % Normal 2.0-13.0 [facility] ([place]) Comment on above: Performed By: #### C MP, ADIFF, GFR, PRO, ANEU, CBC ####[address] [address] Neutrophils/100 WBC (Bld) 78.6 % High 50.0-75.0 [facility] ([place]) Comment on above: Performed By: #### C MP, ADIFF, GFR, PRO, ANEU, CBC ####[address] [address] .GFRon 11-17-2023 GFR >60 Normal [facility] ([place]) Comment on above: Result Comment: GFR Population mean for , Non- Americans Ages 20-29 = 116 mL/min/1.73 sq.m. Ages 30-39 = 107 mL/min/1.73 sq.m. Ages 40-49 = 99 mL/min/1.73 sq.m. Ages 50-59 = 93 mL/min/1.73 sq.m. Ages 60-69 = 85 mL/min/1.73 sq.m. Ages 70+ = 75 mL/min/1.73 sq.m. Chronic Kidney Disease: Less than 60 mL/min/1.73 square meters End Stage Renal Disease: Less than 15 mL/min/1.73 square meters Performed By: #### C MP, ADIFF, GFR, PRO, ANEU, CBC ####[place] [address] GFR Non- >60 Normal [facility] ([place]) Comment on above: Result Comment: GFR Population mean for , Non- Americans Ages 20-29 = 116 mL/min/1.73 sq.m. Ages 30-39 = 107 mL/min/1.73 sq.m. Ages 40-49 = 99 mL/min/1.73 sq.m. Ages 50-59 = 93 mL/min/1.73 sq.m. Ages 60-69 = 85 mL/min/1.73 sq.m. Ages 70+ = 75 mL/min/1.73 sq.m. Chronic Kidney Disease: Less than 60 mL/min/1.73 square meters End Stage Renal Disease: Less than 15 mL/min/1.73 square meters Performed By: #### C MP, ADIFF, GFR, PRO, ANEU, CBC ####[place] [address] .NEUABSon 11-17-2023 Neutrophil, Absolute 6.2 10 3/mcL Normal 2.3-8.1 [facility] ([place]) Comment on above: Performed By: #### C MP, ADIFF, GFR, PRO, ANEU, CBC ####[place] [address] CBCon 11-17-2023 Erythrocyte distribution width (RBC) [Ratio] 14.9 % Normal 11.5-15.5 [facility] ([place]) Comment on above: Performed By: #### C MP, ADIFF, GFR, PRO, ANEU, CBC ####[place] [address] Hematocrit (Bld) [Volume fraction] 30.1 % Low 40.0-52.0 [facility] ([place]) Comment on above: Performed By: #### C MP, ADIFF, GFR, PRO, ANEU, CBC ####[place] [address] Hgb 9.9 G/dL Low 13.0-17.5 [facility] ([place]) Comment on above: Performed By: #### C MP, ADIFF, GFR, PRO, ANEU, CBC ####[place] [address] MCH (RBC) [Entitic mass] 28.9 pg Normal 27.0-33.0 [facility] ([place]) Comment on above: Performed By: #### C MP, ADIFF, GFR, PRO, ANEU, CBC ####[place] [address] MCHC 32.8 G/dL Normal 32.0-36.0 [facility] ([place]) Comment on above: Performed By: #### C MP, ADIFF, GFR, PRO, ANEU, CBC ####[place] [address] MCV (RBC) [Entitic vol] 88.1 fL Normal 81.0-100.0 [facility] ([place]) Comment on above: Performed By: #### C MP, ADIFF, GFR, PRO, ANEU, CBC ####[place] [address] Platelet 314 10 3/mcL Normal 150-450 [facility] ([place]) Comment on above: Performed By: #### C MP, ADIFF, GFR, PRO, ANEU, CBC ####[place] [address] Platelet mean volume (Bld) [Entitic vol] 9.0 fL Normal 6.4-10.5 [facility] ([place]) Comment on above: Performed By: #### C MP, ADIFF, GFR, PRO, ANEU, CBC ####[place] [address] RBC 3.41 10 6/mcL Low 4.50-6.00 [facility] ([place]) Comment on above: Performed By: #### C MP, ADIFF, GFR, PRO, ANEU, CBC ####[place] [address] WBC 7.9 10 3/mcL Normal 4.5-10.8 [facility] ([place]) Comment on above: Performed By: #### C MP, ADIFF, GFR, PRO, ANEU, CBC ####[place] [address] CMPon 11-17-2023 Albumin Level 1.4 G/dL Low 3.2-4.8 [facility] ([place]) Comment on above: Performed By: #### C MP, ADIFF, GFR, PRO, ANEU, CBC ####[place] [address] Albumin/Globulin [Mass ratio] 0.4 {ratio} Low 0.9-1.6 [facility] ([place]) Comment on above: Performed By: #### C MP, ADIFF, GFR, PRO, ANEU, CBC ####[place] [address] ALP [Catalytic activity/Vol] 120 U/L Normal 38-126 [facility] ([place]) Comment on above: Performed By: #### C MP, ADIFF, GFR, PRO, ANEU, CBC ####[place] [address] ALT [Catalytic activity/Vol] 21 U/L Normal 12-55 [facility] ([place]) Comment on above: Performed By: #### C MP, ADIFF, GFR, PRO, ANEU, CBC ####[place] [address] AST [Catalytic activity/Vol] 28 U/L Normal 8-34 [facility] ([place]) Comment on above: Performed By: #### C MP, ADIFF, GFR, PRO, ANEU, CBC ####[place] [address] Bili Total 0.30 mg/dL Normal 0.20-1.20 [facility] ([place]) Comment on above: Result Comment: Use of this assay is not recommended for patients undergoing treatment with eltrombopag due to the potential for falsely elevated results. Performed By: #### C MP, ADIFF, GFR, PRO, ANEU, CBC ####[place] [address] BUN/Creatinine Ratio 8.0 ratio Low 10.0-22.0 [facility] ([place]) Comment on above: Performed By: #### C MP, ADIFF, GFR, PRO, ANEU, CBC ####[place] [address] Calcium [Mass/Vol] 7.9 mg/dL Low 8.7-10.4 [facility] ([place]) Comment on above: Performed By: #### C MP, ADIFF, GFR, PRO, ANEU, CBC ####[place] [address] Chloride [Moles/Vol] 106 mmol/L Normal 98-110 [facility] ([place]) Comment on above: Performed By: #### C MP, ADIFF, GFR, PRO, ANEU, CBC ####[place] [address] CO2 [Moles/Vol] 27 mmol/L Normal 22-32 [facility] ([place]) Comment on above: Performed By: #### C MP, ADIFF, GFR, PRO, ANEU, CBC ####[place] [address] Creatinine [Mass/Vol] 0.75 mg/dL Normal 0.60-1.40 [facility] ([place]) Comment on above: Performed By: #### C MP, ADIFF, GFR, PRO, ANEU, CBC ####[place] [address] Electrolyte Balance 6.0 mEq/L Normal 4.0-15.0 [facility] ([place]) Comment on above: Performed By: #### C MP, ADIFF, GFR, PRO, ANEU, CBC ####[place] [address] Globulin 3.7 G/dL Normal 1.5-3.8 [facility] ([place]) Comment on above: Performed By: #### C MP, ADIFF, GFR, PRO, ANEU, CBC ####[address] [address] Glucose [Mass/Vol] 282 mg/dL High 82-115 [facility] ([place]) Comment on above: Performed By: #### C MP, ADIFF, GFR, PRO, ANEU, CBC ####[address] [address] Potassium [Moles/Vol] 4.6 mmol/L Normal 3.5-5.0 [facility] ([place]) Comment on above: Performed By: #### C MP, ADIFF, GFR, PRO, ANEU, CBC ####[address] [address] Sodium [Moles/Vol] 139 mmol/L Normal 136-145 [facility] ([place]) Comment on above: Performed By: #### C MP, ADIFF, GFR, PRO, ANEU, CBC ####[address] [address] Total Protein 5.1 G/dL Low 5.7-8.2 [facility] ([place]) Comment on above: Result Comment: No te - New Reference Range in effect 20 Performed By: #### C MP, ADIFF, GFR, PRO, ANEU, CBC ####[address] [address] Urea nitrogen [Mass/Vol] 6.0 mg/dL Low 8.0-22.0 [facility] ([place]) Comment on above: Performed By: #### C MP, ADIFF, GFR, PRO, ANEU, CBC ####[address] [address] LABORATORYOrdered By: Brayan Alvarez on 11-17-2023 PT Coag (PPP) [Time] 15.8 s High 9.0 - 1 4.4 seconds AH [facility] SS Comment on above: Interpretive Data: E ffective 01/08/08, Protime results may be affected by some antibiotics (i.e. Ciprofloxacin, Azithromycin, Bactrim) which may potentiate the action of oral anticoagulants, with further increases in Protime/INR. PT International Ratio 1.4 ratio Invalid Interpretation Code AH [facility] SS Comment on above: Interpretive Data: [employer] (CHEST, 1992, 102:312S-25S) recommended therapeutic range for oral anticoagulant therapy is: LOW RISK: Prophylaxis of venous thrombosis INR: 2.0-3.0 Treatment of pulmonary embolism 2.0-3.0 Prevention of systemic embolism 2.0-3.0 HIGH RISK: Mechanical prosthetic valves 2.5-3.5 MRI BRAIN W/ + W/O CONTRASTo n 11-17-2023 MRI BRAIN W/ + W/O CONTRAST ORIGINAL EXAMINATION: MRI OF THE BRAIN WITHOUT AND WITH CONTRAST 11/17/2023 6:53 pm TECHNIQUE: Multiplanar multisequence MRI of the head/brain was performed without and with the administration of intravenous contrast. COMPARISON: CT head 11/12/2023 HISTORY: ORDERING SYSTEM PROVIDED HISTORY: Reason for Exam: Left sided weakness, eval for stroke, malignancy FINDINGS: INTRACRANIAL STRUCTURES/VENTRICLES: There is no acute infarct. Old small insult in the right lateral occipital lobe. No mass effect or midline shift. No evidence of an acute intracranial hemorrhage. Mild generalized parenchymal volume loss with concordant expansion of the ventricular system. Few scattered tiny T2/FLAIR densities of the periventricular and subcortical white matter which are nonspecific although could be sequelae of chronic small vessel ischemic changes. The ventricles and sulci are normal in size and configuration. The sellar/suprasellar regions appear unremarkable. The normal signal voids within the major intracranial vessels appear maintained. No abnormal focus of enhancement is seen within the brain. ORBITS: There is mild optic disc edema just before the globe, nonspecific. The visualized portion of the orbits demonstrate no acute abnormality. SINUSES: The visualized paranasal sinuses and mastoid air cells demonstrate no acute abnormality. Moderate mucosal thickening of the left maxillary sinus. BONES/SOFT TISSUES: T1 hypointensity of the cervical spine bone marrow, nonspecific although which could reflect underlying bone marrow reconversion or replacement process. The soft tissues demonstrate no acute abnormality. IMPRESSION: No acute intracranial abnormality. I have personally reviewed the images of this examination and agree with the resident's findings and interpretation. Interpreted by: Ar Prieto Preliminary Report By: Charles Zuluaga Electronically signed By Ar Prieto Dictated Date: 11/17/2023 8:02:24 PM Prelim Date: 11/17/2023 8:07:30 PM Sign Date: 11/17/2023 8:22:18 PM Ordering Provider: LEONARDO Peoples [facility] ([place]) MRI SPINE CERVICAL W/ + W/O CONTRASTon 11-17-2023 MRI SPINE CERVICAL W/ + W/O CONTRAST ORIGINAL EXAMINATION: MRI OF THE CERVICAL SPINE WITHOUT AND WITH CONTRAST 11/17/2023 6:53 pm: TECHNIQUE: Multiplanar multisequence MRI of the cervical spine was performed without and with the administration of intravenous contrast. COMPARISON: Limited evaluation of the cervical spine on CT of the neck November 12, 2023. HISTORY: ORDERING SYSTEM PROVIDED HISTORY: Reason for Exam: Left sided weakness, eval for stenosis, malignancy FINDINGS: BONES/ALIGNMENT: There is normal alignment of the spine. The vertebral body heights are maintained. Diffuse T1 hypointensity of the bone marrow, nonspecific although can be seen in a bone marrow reconversion or replacement process. SPINAL CORD: No abnormal cord signal is seen. SOFT TISSUES: No abnormal enhancement of the cervical spine. No paraspinal mass identified. Degenerative changes: Multilevel disc osteophyte complexes, uncovertebral and facet arthrosis with narrowings as below: C2-C3: No significant spinal canal stenosis. Mild right neural foraminal narrowing. C3-C4: Effacement of the thecal sac with flattening of the cord. Severe left neural foraminal narrowing. C4-C5: Partial effacement of the thecal sac. Mild to moderate right neural foraminal narrowing. C5-C6: No significant spinal canal stenosis. Severe right neural foraminal narrowing. C6-C7: No significant spinal canal stenosis. Mild bilateral neural foraminal narrowing. C7-T1: No significant spinal canal stenosis or neural foraminal narrowing. IMPRESSION: Multilevel degenerative changes of the spine as above. No abnormal spinal cord signal or abnormal enhancement. Interpreted by: Ar Prieto Preliminary Report By: Ar Prieto Electronically signed By Ar Prieto Dictated Date: 11/17/2023 8:28:51 PM Prelim Date: 11/17/2023 8:38:30 PM Sign Date: 11/17/2023 8:38:30 PM Ordering Provider: LEONARDO Peoples [facility] ([place]) PROon 11-17-2023 INR Coag (PPP) [Relative time] 1.4 {INR} Normal [facility]) Comment on above: Result Comment: [employer] (CHEST, 1992, 102:312S-25S) recommended therapeutic range for oral anticoagulant therapy is: LOW RISK: Prophylaxis of venous thrombosis INR: 2.0-3.0 Treatment of pulmonary embolism 2.0-3.0 Prevention of systemic embolism 2.0-3.0 HIGH RISK: Mechanical prosthetic valves 2.5-3.5 Performed By: #### C MP, ADIFF, GFR, PRO, ANEU, CBC ####[place] [address] PT Coag (PPP) [Time] 15.8 s High 9.0-14.4 [facility]) Comment on above: Result Comment: Effe ctive 01/08/08, Protime results may be affected by some antibiotics (i.e. Ciprofloxacin, Azithromycin, Bactrim) which may potentiate the action of oral anticoagulants, with further increases in Protime/INR. Performed By: #### C MP, ADIFF, GFR, PRO, ANEU, CBC ####[place] [address] .Auto Diffon 11-16-2023 Basophil, Absolute 0.0 10 3/mcL Normal 0.0-0.3 [facility]) Comment on above: Performed By: #### A DIFF, CBC, PRO, GFR, CMP, ANEU, CEA ####[place] [address] Basophils/100 WBC (Bld) 0.6 % Normal 0.0-2.5 [facility] ([place]) Comment on above: Performed By: #### A DIFF, CBC, PRO, GFR, CMP, ANEU, CEA ####[place] [address] Eosinophil, Absolute 0.1 10 3/mcL Normal 0.0-0.7 [facility] ([place]) Comment on above: Performed By: #### A DIFF, CBC, PRO, GFR, CMP, ANEU, CEA ####[address] [address] Eosinophils/100 WBC (Bld) 0.8 % Normal 0.0-6.0 [facility] ([place]) Comment on above: Performed By: #### A DIFF, CBC, PRO, GFR, CMP, ANEU, CEA ####[address] [address] Lymphocyte, Absolute 0.7 10 3/mcL Low 0.9-4.3 [facility] ([place]) Comment on above: Performed By: #### A DIFF, CBC, PRO, GFR, CMP, ANEU, CEA ####[address] [address] Lymphocytes/100 WBC (Bld) 9.2 % Low 20.0-40.0 [facility] ([place]) Comment on above: Performed By: #### A DIFF, CBC, PRO, GFR, CMP, ANEU, CEA ####[address] [address] Monocyte, Absolute 0.9 10 3/mcL Normal 0.1-1.4 [facility] ([place]) Comment on above: Performed By: #### A DIFF, CBC, PRO, GFR, CMP, ANEU, CEA ####[address] [address] Monocytes/100 WBC (Bld) 11.6 % Normal 2.0-13.0 [facility] ([place]) Comment on above: Performed By: #### A DIFF, CBC, PRO, GFR, CMP, ANEU, CEA ####[address] [address] Neutrophils/100 WBC (Bld) 77.8 % High 50.0-75.0 [facility] ([place]) Comment on above: Performed By: #### A DIFF, CBC, PRO, GFR, CMP, ANEU, CEA ####[address] [address] .GFRon 11-16-2023 GFR Non- >60 Normal [facility] ([place]) Comment on above: Result Comment: GFR Population mean for , Non- Americans Ages 20-29 = 116 mL/min/1.73 sq.m. Ages 30-39 = 107 mL/min/1.73 sq.m. Ages 40-49 = 99 mL/min/1.73 sq.m. Ages 50-59 = 93 mL/min/1.73 sq.m. Ages 60-69 = 85 mL/min/1.73 sq.m. Ages 70+ = 75 mL/min/1.73 sq.m. Chronic Kidney Disease: Less than 60 mL/min/1.73 square meters End Stage Renal Disease: Less than 15 mL/min/1.73 square meters Performed By: #### A DIFF, CBC, PRO, GFR, CMP, ANEU, CEA ####[place] [address] GFR >60 Normal [facility] ([place] Comment on above: Result Comment: GFR Population mean for , Non- Americans Ages 20-29 = 116 mL/min/1.73 sq.m. Ages 30-39 = 107 mL/min/1.73 sq.m. Ages 40-49 = 99 mL/min/1.73 sq.m. Ages 50-59 = 93 mL/min/1.73 sq.m. Ages 60-69 = 85 mL/min/1.73 sq.m. Ages 70+ = 75 mL/min/1.73 sq.m. Chronic Kidney Disease: Less than 60 mL/min/1.73 square meters End Stage Renal Disease: Less than 15 mL/min/1.73 square meters Performed By: #### A DIFF, CBC, PRO, GFR, CMP, ANEU, CEA ####[place] [address] .NEUABSon 11-16-2023 Neutrophil, Absolute 6.4 10 3/mcL Normal 2.3-8.1 [facility] ([place]) Comment on above: Performed By: #### A DIFF, CBC, PRO, GFR, CMP, ANEU, CEA ####[place] [id number] CBCon 11-16-2023 Erythrocyte distribution width (RBC) [Ratio] 14.7 % Normal 11.5-15.5 [facility] ([place] Comment on above: Performed By: #### A DIFF, CBC, PRO, GFR, CMP, ANEU, CEA ####[place] [address] Hematocrit (Bld) [Volume fraction] 28.0 % Low 40.0-52.0 [facility] ([place] Comment on above: Performed By: #### A DIFF, CBC, PRO, GFR, CMP, ANEU, CEA ####[place] [address] Hgb 9.4 G/dL Low 13.0-17.5 [facility] ([place] Comment on above: Performed By: #### A DIFF, CBC, PRO, GFR, CMP, ANEU, CEA ####[place] [address] MCH (RBC) [Entitic mass] 29.6 pg Normal 27.0-33.0 [facility] ([place] Comment on above: Performed By: #### A DIFF, CBC, PRO, GFR, CMP, ANEU, CEA ####[place] [address] MCHC 33.5 G/dL Normal 32.0-36.0 [facility] ([place] Comment on above: Performed By: #### A DIFF, CBC, PRO, GFR, CMP, ANEU, CEA ####[place] [address] MCV (RBC) [Entitic vol] 88.3 fL Normal 81.0-100.0 [facility] ([place] Comment on above: Performed By: #### A DIFF, CBC, PRO, GFR, CMP, ANEU, CEA ####[place] [address] Platelet 280 10 3/mcL Normal 150-450 [facility] ([place] Comment on above: Performed By: #### A DIFF, CBC, PRO, GFR, CMP, ANEU, CEA ####[place] [address] Platelet mean volume (Bld) [Entitic vol] 8.6 fL Normal 6.4-10.5 [facility] ([place] Comment on above: Performed By: #### A DIFF, CBC, PRO, GFR, CMP, ANEU, CEA ####[place] [address] RBC 3.17 10 6/mcL Low 4.50-6.00 [facility] ([place] Comment on above: Performed By: #### A DIFF, CBC, PRO, GFR, CMP, ANEU, CEA ####[place] [address] WBC 8.2 10 3/mcL Normal 4.5-10.8 [facility] ([place] Comment on above: Performed By: #### A DIFF, CBC, PRO, GFR, CMP, ANEU, CEA ####[place] [address] CEAon 11-16-2023 CEA <0.5 Normal 0.0-3.0 [facility] ([place] Comment on above: Result Comment: CEA Reference Range for SMOKERS: 0.0 - 5.0 ng/mL. Testing performed on the [employer] IM analyzer using direct chemiluminesent technology. Patient results determined by assays using different manufacturers for methods may not be comparable. Performed By: #### A DIFF, CBC, PRO, GFR, CMP, ANEU, CEA ####[place] [address] CMPon 11-16-2023 Albumin Level 1.6 G/dL Low 3.2-4.8 [facility] ([place] Comment on above: Performed By: #### A DIFF, CBC, PRO, GFR, CMP, ANEU, CEA ####[place] [address] Albumin/Globulin [Mass ratio] 0.4 {ratio} Low 0.9-1.6 [facility] ([place] Comment on above: Performed By: #### A DIFF, CBC, PRO, GFR, CMP, ANEU, CEA ####[place] [address] ALP [Catalytic activity/Vol] 106 U/L Normal 38-126 [facility] ([place] Comment on above: Performed By: #### A DIFF, CBC, PRO, GFR, CMP, ANEU, CEA ####[place] [address] ALT [Catalytic activity/Vol] 17 U/L Normal 12-55 [facility] ([place] Comment on above: Performed By: #### A DIFF, CBC, PRO, GFR, CMP, ANEU, CEA ####[place] [id number] AST [Catalytic activity/Vol] 26 U/L Normal 8-34 [facility] ([place] Comment on above: Performed By: #### A DIFF, CBC, PRO, GFR, CMP, ANEU, CEA ####[place] [address] Bili Total 0.50 mg/dL Normal 0.20-1.20 [facility] ([place] Comment on above: Result Comment: Use of this assay is not recommended for patients undergoing treatment with eltrombopag due to the potential for falsely elevated results. Performed By: #### A DIFF, CBC, PRO, GFR, CMP, ANEU, CEA ####[place] [address] BUN/Creatinine Ratio 5.8 ratio Low 10.0-22.0 [facility] ([place] Comment on above: Performed By: #### A DIFF, CBC, PRO, GFR, CMP, ANEU, CEA ####[place] [address] Calcium [Mass/Vol] 7.6 mg/dL Low 8.7-10.4 [facility] ([place]) Comment on above: Performed By: #### A DIFF, CBC, PRO, GFR, CMP, ANEU, CEA ####[place] [id number] Chloride [Moles/Vol] 106 mmol/L Normal 98-110 [facility] ([place] Comment on above: Performed By: #### A DIFF, CBC, PRO, GFR, CMP, ANEU, CEA ####[place] [id number] CO2 [Moles/Vol] 27 mmol/L Normal 22-32 [facility] ([place] Comment on above: Performed By: #### A DIFF, CBC, PRO, GFR, CMP, ANEU, CEA ####[address] [address] Creatinine [Mass/Vol] 0.86 mg/dL Normal 0.60-1.40 [facility] ([place] Comment on above: Performed By: #### A DIFF, CBC, PRO, GFR, CMP, ANEU, CEA ####[place] [address] Electrolyte Balance 6.0 mEq/L Normal 4.0-15.0 [facility] ([place] Comment on above: Performed By: #### A DIFF, CBC, PRO, GFR, CMP, ANEU, CEA ####[place] [address] Globulin 3.7 G/dL Normal 1.5-3.8 [facility] ([place] Comment on above: Performed By: #### A DIFF, CBC, PRO, GFR, CMP, ANEU, CEA ####[place] [address] Glucose [Mass/Vol] 87 mg/dL Normal 82-115 [facility] ([place] Comment on above: Performed By: #### A DIFF, CBC, PRO, GFR, CMP, ANEU, CEA ####[place] [address] Potassium [Moles/Vol] 3.8 mmol/L Normal 3.5-5.0 [facility] ([place] Comment on above: Performed By: #### A DIFF, CBC, PRO, GFR, CMP, ANEU, CEA ####[place] [id number] Sodium [Moles/Vol] 139 mmol/L Normal 136-145 [facility] ([place] Comment on above: Performed By: #### A DIFF, CBC, PRO, GFR, CMP, ANEU, CEA ####[place] [address] Total Protein 5.3 G/dL Low 5.7-8.2 [facility] ([place] Comment on above: Result Comment: No te - New Reference Range in effect 20 Performed By: #### A DIFF, CBC, PRO, GFR, CMP, ANEU, CEA ####[address] [place] [address] Urea nitrogen [Mass/Vol] 5.0 mg/dL Low 8.0-22.0 [facility] ([place] Comment on above: Performed By: #### A DIFF, CBC, PRO, GFR, CMP, ANEU, CEA ####[address] [address] IR ASPIRATION/DRAINAGEon IR ASPIRATION/DRAINAGE ORIGINAL HISTORY: ORDERING SYSTEM PROVIDED HISTORY: Reason for Exam: Liver lesion/ abscess. Right abdominal pain. Patient has a history of pancreatic stent placed in [place]. TECHNIQUE: This exam was performed according to our departmental dose-optimization program which includes automated exposure control, adjustment of the mA and/or kVp according to patient size and/or use of iterative reconstruction technique where applicable. PROCEDURE: 1. CT-guided liver biopsy 2. CT-guided liver aspiration 3. CT guided percutaneous drainage catheter placement, liver, segment 5/[address] guided percutaneous drainage catheter placement, liver, segment 8 SET UP TECHNICIAN: Dr. Ford BODY MAN: None MATERIALS: 18 G thin wall Amplatz 2 x 10 Fr APD Suction bag Dilator Prolene 18G Corvacet ANESTHESIA: Moderate conscious sedation administered. Patient was monitored throughout the procedure by nurse. INTRASERVICE TIME (min): 73 SKIN ENTRY SITE: Right upper quadrant subcostal FINDINGS: PRE: Segment 5/6 hypodense area measures 11.4 x 6.2 cm. Segment 8 hypodense lesion measures 7.6 x 7.4 cm. POST: Catheter loops noted within the smaller fluid collections. Some air within the collections is from the procedure. The procedure, risks, and alternatives, were discussed with the patient and all questions were answered. Written informed consent obtained. Procedure was performed using a cap, sterile gloves, a sterile sheet or towels, hand hygiene and hospital approved cutaneous antisepsis. Time out performed. Percutaneous site was sterilely prepped and draped. After local anesthesia administration, guide needle was advanced to segment 5 adjacent to the area of the lesion. 10 18 gauge core samples were obtained from 2 different areas. Needle was advanced into the central portion of the segment 6 part of the lesion. 10 mL of yellow pus was aspirated. Sample sent for culture. Biopsy needle was removed. Given aspiration of pus, likelihood of the lesion being neoplasm is low. It was decided that pigtail drain placement would be needed to treat this abscess. After local anesthesia administered and dermatotomy creation, needle was advanced into the fluid collection with CT guidance. Wire was coiled in the fluid collection under CT. 10 additional side holes were made between the pigtail and 15 cm marker. After dilatation, drainage catheter was advanced into the collection and distal loop formed under CT guidance. 60 mL of pus was removed. Catheter was attached to a vacuum suction bag. Catheter was affixed to the patient with suture. Sterile dressing placed. Follow-up CT images demonstrate slight decrease of segment 5/6 fluid collection. However the segment 8 fluid collection is unchanged suggesting this fluid collection is separate from the segment 5/6 collection. It was decided the 2nd hepatic drain would be necessary. After local anesthesia administered and dermatotomy creation, needle was advanced into the fluid collection with CT guidance. Wire was coiled in the fluid collection under CT. After dilatation, drainage catheter was advanced into the collection and distal loop formed under CT guidance. 100 mL of pus was removed. Catheter was attached to a vacuum suction bag. Catheter was affixed to the patient with suture. Sterile dressing placed. COMPLICATION: None EBL: Minimal CONDITION: Stable IMPRESSION: 1. Successful liver biopsy and aspiration. Pus was aspirated suggesting lesion to be a complex abscess. 2. Successful image guided intrahepatic pigtail drainage catheter placement x 2. 3. Each catheter and bag should be flushed with 10 mL sterile normal saline TID as inpatient and then once a day after discharge. 4. Given solid organ location of the drain, cannot be removed for at least 3-4 weeks until mature tract forms to prevent bleeding and/or bile leak. 5. Recommend removal once daily output 10 ml or less and resolution on follow up CT. 6. Removal has to be done under fluoroscopy over the wire given intrahepatic location. Interpreted by: Maxine Ford MD Preliminary Report By: Maxine Ford MD Electronically signed By Maxine Ford MD Dictated Date: 11/16/2023 8:22:27 PM Prelim Date: 11/16/2023 8:32:37 PM Sign Date: 11/16/2023 8:32:37 PM Ordering Provider: JARED Peoples [facility] ([place] LABORATORYOrdered By: Angelic Vergara on 11-16-2023 Blood Glucose Interventions Administered food/juice (11/16/23 4:45 PM) [facility] LABORATORYOrdered By: SYSTEM SYSTEM on 11-16-2023 Carcinoembryonic Ag [Mass/Vol] ng/mL Normal 0.0 - 3.0 ng/mL AH ADM SS Comment on above: Interpretive Data: C EA Reference Range for SMOKERS: 0.0 - 5.0 ng/mL. Testing performed on the [employer] IM analyzer using direct chemiluminesent technology. Patient results determined by assays using different manufacturers for methods may not be comparable. No Panel Informationon 11-15 Culture Body Fluid Few Streptococcus intermedius Unable to perform sensitivity testing due to the fastidious nature of the organism. No anaerobes isolated at 5 days. [facility] GS Sedimented 4+ White Blood Cells Rare Gram Positive Cocci [facility] Streptococcus intermedius Streptococcus intermedius [facility] PROon 11-16-2023 INR Coag (PPP) [Relative time] 1.5 {INR} Normal [facility] ([place] Comment on above: Result Comment: The [employer] (CHEST, 1992, [id number]) recommended therapeutic range for oral anticoagulant therapy is: LOW RISK: Prophylaxis of venous thrombosis INR: 2.0-3.0 Treatment of pulmonary embolism 2.0-3.0 Prevention of systemic embolism 2.0-3.0 HIGH RISK: Mechanical prosthetic valves 2.5-3.5 Performed By: #### A DIFF, CBC, PRO, GFR, CMP, ANEU, CEA ####[address] [address] PT Coag (PPP) [Time] 16.9 s High 9.0-14.4 [facility] ([place] Comment on above: Result Comment: Effe ctive 01/08/08, Protime results may be affected by some antibiotics (i.e. Ciprofloxacin, Azithromycin, Bactrim) which may potentiate the action of oral anticoagulants, with further increases in Protime/INR. Performed By: #### A DIFF, CBC, PRO, GFR, CMP, ANEU, CEA ####[address] [address] .Auto Diffon 11-15-2023 Basophil, Absolute 0.1 10 3/mcL Normal 0.0-0.3 [facility] ([place] Comment on above: Performed By: #### A DIFF, CMP, ANEU, GFR, CBC, MG ####[address] [address] Basophils/100 WBC (Bld) 0.8 % Normal 0.0-2.5 [facility] ([place] Comment on above: Performed By: #### A DIFF, CMP, ANEU, GFR, CBC, MG ####[address] [address] Eosinophil, Absolute 0.1 10 3/mcL Normal 0.0-0.7 [facility] ([place] Comment on above: Performed By: #### A DIFF, CMP, ANEU, GFR, CBC, MG ####[address] [address] Eosinophils/100 WBC (Bld) 0.6 % Normal 0.0-6.0 [facility] ([place] Comment on above: Performed By: #### A DIFF, CMP, ANEU, GFR, CBC, MG ####[address] [address] Lymphocyte, Absolute 0.7 10 3/mcL Low 0.9-4.3 [facility] ([place] Comment on above: Performed By: #### A DIFF, CMP, ANEU, GFR, CBC, MG ####[address] [address] Lymphocytes/100 WBC (Bld) 7.1 % Low 20.0-40.0 [facility] ([place] Comment on above: Performed By: #### A DIFF, CMP, ANEU, GFR, CBC, MG ####[address] [address] Monocyte, Absolute 1.0 10 3/mcL Normal 0.1-1.4 [facility] ([place] Comment on above: Performed By: #### A DIFF, CMP, ANEU, GFR, CBC, MG ####[address] [address] Monocytes/100 WBC (Bld) 9.9 % Normal 2.0-13.0 [facility] ([place] Comment on above: Performed By: #### A DIFF, CMP, ANEU, GFR, CBC, MG ####[address] [address] Neutrophils/100 WBC (Bld) 81.6 % High 50.0-75.0 [facility] ([place] Comment on above: Performed By: #### A DIFF, CMP, ANEU, GFR, CBC, MG ####[address] [address] .GFRon 11-15-2023 GFR >60 Normal [facility] ([place] Comment on above: Result Comment: GFR Population mean for , Non- Americans Ages 20-29 = 116 mL/min/1.73 sq.m. Ages 30-39 = 107 mL/min/1.73 sq.m. Ages 40-49 = 99 mL/min/1.73 sq.m. Ages 50-59 = 93 mL/min/1.73 sq.m. Ages 60-69 = 85 mL/min/1.73 sq.m. Ages 70+ = 75 mL/min/1.73 sq.m. Chronic Kidney Disease: Less than 60 mL/min/1.73 square meters End Stage Renal Disease: Less than 15 mL/min/1.73 square meters Performed By: #### A DIFF, CMP, ANEU, GFR, CBC, MG ####[address] [address] GFR Non- >60 Normal [facility] ([place] Comment on above: Result Comment: GFR Population mean for , Non- Americans Ages 20-29 = 116 mL/min/1.73 sq.m. Ages 30-39 = 107 mL/min/1.73 sq.m. Ages 40-49 = 99 mL/min/1.73 sq.m. Ages 50-59 = 93 mL/min/1.73 sq.m. Ages 60-69 = 85 mL/min/1.73 sq.m. Ages 70+ = 75 mL/min/1.73 sq.m. Chronic Kidney Disease: Less than 60 mL/min/1.73 square meters End Stage Renal Disease: Less than 15 mL/min/1.73 square meters Performed By: #### A DIFF, CMP, ANEU, GFR, CBC, MG ####[place] [address] .NEUABSon 11-15-2023 Neutrophil, Absolute 8.4 10 3/mcL High 2.3-8.1 [facility] ([place] Comment on above: Performed By: #### A DIFF, CMP, ANEU, GFR, CBC, MG ####[place] [address] CBCon 11-15-2023 Erythrocyte distribution width (RBC) [Ratio] 14.3 % Normal 11.5-15.5 [facility] ([place] Comment on above: Performed By: #### A DIFF, CMP, ANEU, GFR, CBC, MG ####[place] [address] Hematocrit (Bld) [Volume fraction] 29.8 % Low 40.0-52.0 [facility] ([place] Comment on above: Performed By: #### A DIFF, CMP, ANEU, GFR, CBC, MG ####[place] [address] Hgb 10.0 G/dL Low 13.0-17.5 [facility] ([place] Comment on above: Performed By: #### A DIFF, CMP, ANEU, GFR, CBC, MG ####[place] [address] MCH (RBC) [Entitic mass] 29.4 pg Normal 27.0-33.0 [facility] ([place] Comment on above: Performed By: #### A DIFF, CMP, ANEU, GFR, CBC, MG ####[place] [address] MCHC 33.4 G/dL Normal 32.0-36.0 [facility] ([place] Comment on above: Performed By: #### A DIFF, CMP, ANEU, GFR, CBC, MG ####[place] [address] MCV (RBC) [Entitic vol] 88.1 fL Normal 81.0-100.0 [facility] ([place] Comment on above: Performed By: #### A DIFF, CMP, ANEU, GFR, CBC, MG ####[place] [address] Platelet 290 10 3/mcL Normal 150-450 [facility] ([place] Comment on above: Performed By: #### A DIFF, CMP, ANEU, GFR, CBC, MG ####[place] [address] Platelet mean volume (Bld) [Entitic vol] 9.2 fL Normal 6.4-10.5 [facility] ([place] Comment on above: Performed By: #### A DIFF, CMP, ANEU, GFR, CBC, MG ####[place] [address] RBC 3.39 10 6/mcL Low 4.50-6.00 [facility] ([place] Comment on above: Performed By: #### A DIFF, CMP, ANEU, GFR, CBC, MG ####[place] [address] WBC 10.3 10 3/mcL Normal 4.5-10.8 [facility] ([place] Comment on above: Performed By: #### A DIFF, CMP, ANEU, GFR, CBC, MG ####[place] [address] CMPon 11-15-2023 Albumin Level 1.7 G/dL Low 3.2-4.8 [facility] ([place] Comment on above: Performed By: #### A DIFF, CMP, ANEU, GFR, CBC, MG ####[place] [address] Albumin/Globulin [Mass ratio] 0.4 {ratio} Low 0.9-1.6 [facility] ([place] Comment on above: Performed By: #### A DIFF, CMP, ANEU, GFR, CBC, MG ####[place] [address] ALP [Catalytic activity/Vol] 107 U/L Normal 38-126 [facility] ([place] Comment on above: Performed By: #### A DIFF, CMP, ANEU, GFR, CBC, MG ####[address] [address] ALT [Catalytic activity/Vol] 20 U/L Normal 12-55 [facility] ([place] Comment on above: Performed By: #### A DIFF, CMP, ANEU, GFR, CBC, MG ####[address] [address] AST [Catalytic activity/Vol] 26 U/L Normal 8-34 [facility] ([place] Comment on above: Performed By: #### A DIFF, CMP, ANEU, GFR, CBC, MG ####[address] [address] Bili Total 0.50 mg/dL Normal 0.20-1.20 [facility] ([place] Comment on above: Result Comment: Use of this assay is not recommended for patients undergoing treatment with eltrombopag due to the potential for falsely elevated results. Performed By: #### A DIFF, CMP, ANEU, GFR, CBC, MG ####[place] [address] BUN/Creatinine Ratio 13.2 ratio Normal 10.0-22.0 [facility] ([place] Comment on above: Performed By: #### A DIFF, CMP, ANEU, GFR, CBC, MG ####[place] [id number] Calcium [Mass/Vol] 7.6 mg/dL Low 8.7-10.4 [facility] ([place] Comment on above: Performed By: #### A DIFF, CMP, ANEU, GFR, CBC, MG ####[address] [address] Chloride [Moles/Vol] 103 mmol/L Normal 98-110 [facility] ([place] Comment on above: Performed By: #### A DIFF, CMP, ANEU, GFR, CBC, MG ####[address] [address] CO2 [Moles/Vol] 24 mmol/L Normal 22-32 [facility] ([place] Comment on above: Performed By: #### A DIFF, CMP, ANEU, GFR, CBC, MG ####[address] [address] Creatinine [Mass/Vol] 0.76 mg/dL Normal 0.60-1.40 [facility] ([place] Comment on above: Performed By: #### A DIFF, CMP, ANEU, GFR, CBC, MG ####[address] [address] Electrolyte Balance 7.0 mEq/L Normal 4.0-15.0 [facility] ([place] Comment on above: Performed By: #### A DIFF, CMP, ANEU, GFR, CBC, MG ####[place] [id number] Globulin 3.8 G/dL Normal 1.5-3.8 [facility] ([place] Comment on above: Performed By: #### A DIFF, CMP, ANEU, GFR, CBC, MG ####[place] [address] Glucose [Mass/Vol] 212 mg/dL High 82-115 [facility] ([place] Comment on above: Performed By: #### A DIFF, CMP, ANEU, GFR, CBC, MG ####[place] [address] Potassium [Moles/Vol] 4.2 mmol/L Normal 3.5-5.0 [facility] ([place] Comment on above: Performed By: #### A DIFF, CMP, ANEU, GFR, CBC, MG ####[place] [address] Sodium [Moles/Vol] 134 mmol/L Low 136-145 [facility] ([place] Comment on above: Performed By: #### A DIFF, CMP, ANEU, GFR, CBC, MG ####[place] [address] Total Protein 5.5 G/dL Low 5.7-8.2 [facility] ([place] Comment on above: Result Comment: No te - New Reference Range in effect 20 Performed By: #### A DIFF, CMP, ANEU, GFR, CBC, MG ####[address] [address] Urea nitrogen [Mass/Vol] 10.0 mg/dL Normal 8.0-22.0 [facility] ([place] Comment on above: Performed By: #### A DIFF, CMP, ANEU, GFR, CBC, MG ####[address] [address] [id number] 11-15-2023 IgG [Mass/Vol] 1221 mg/dL Normal 603-1613 [facility] ([place] Comment on above: Performed By: #### 2 [id number] ####[address] [address] IgG Subclass 1 549 mg/dL Normal 248-810 [facility] ([place] Comment on above: Performed By: #### 2 [address]26 ####[address] [address] IgG Subclass 2 316 mg/dL Normal 130-555 [facility] ([place] Comment on above: Performed By: #### 2 [address] ####[place] [address] IgG Subclass 3 100 mg/dL Normal 15-102 [facility] ([place] Comment on above: Performed By: #### 2 [address] ####[place] [address] IgG Subclass 4 175 mg/dL High 2-96 [facility] ([place] Comment on above: Result Comment: Perf ormed At: [facility] [address] [id number] Bri Vo PhD Ph:[phone] Performed By: #### 2 45765 ####[address] [address] LABORATORYOrdered By: SYSTEM SYSTEM on 11-15-2023 Magnesium [Mass/Vol] 1.9 mg/dL Normal 1.6 - 2 .4 mg/dL ADM SS MGon 11-15-2023 Magnesium [Mass/Vol] 1.9 mg/dL Normal 1.6-2.4 [facility] ([place] Comment on above: Performed By: #### A DIFF, CMP, ANEU, GFR, CBC, MG ####[address] [address] No Panel Informationon 11-14 Microscopic examination of blood, culture Blood Culture: No Growth at 5 days. [facility] .Auto Diffon 11-14-2023 Basophil, Absolute 0.0 10 3/mcL Normal 0.0-0.3 [facility] ([place] Comment on above: Performed By: #### A JUAN, MG, CBC, GFR, AFPS, CA19, ADIFF, CMP ####[address] [address] Basophils/100 WBC (Bld) 0.3 % Normal 0.0-2.5 [facility] ([place]) Comment on above: Performed By: #### A JUAN, MG, CBC, GFR, AFPS, CA19, ADIFF, CMP ####[address] [address] Eosinophil, Absolute 0.1 10 3/mcL Normal 0.0-0.7 [facility] ([place]) Comment on above: Performed By: #### A JUAN, MG, CBC, GFR, AFPS, CA19, ADIFF, CMP ####[address] [address] Eosinophils/100 WBC (Bld) 0.5 % Normal 0.0-6.0 [facility] ([place] Comment on above: Performed By: #### A JUAN, MG, CBC, GFR, AFPS, CA19, ADIFF, CMP ####[address] [address] Lymphocyte, Absolute 0.7 10 3/mcL Low 0.9-4.3 [facility] ([place]) Comment on above: Performed By: #### A JUAN, MG, CBC, GFR, AFPS, CA19, ADIFF, CMP ####[address] [address] Lymphocytes/100 WBC (Bld) 6.1 % Low 20.0-40.0 [facility] ([place] Comment on above: Performed By: #### A JUAN, MG, CBC, GFR, AFPS, CA19, ADIFF, CMP ####[address] [address] Monocyte, Absolute 0.9 10 3/mcL Normal 0.1-1.4 [facility] ([place] Comment on above: Performed By: #### A JUAN, MG, CBC, GFR, AFPS, CA19, ADIFF, CMP ####[address] [address] Monocytes/100 WBC (Bld) 8.3 % Normal 2.0-13.0 [facility] ([place] Comment on above: Performed By: #### A JUAN, MG, CBC, GFR, AFPS, CA19, ADIFF, CMP ####[address] [address] Neutrophils/100 WBC (Bld) 84.8 % High 50.0-75.0 [facility] ([place] Comment on above: Performed By: #### A JUAN, MG, CBC, GFR, AFPS, CA19, ADIFF, CMP ####[address] [address] .GFRon 11-14-2023 GFR >60 Normal [facility] ([place] Comment on above: Result Comment: GFR Population mean for , Non- Americans Ages 20-29 = 116 mL/min/1.73 sq.m. Ages 30-39 = 107 mL/min/1.73 sq.m. Ages 40-49 = 99 mL/min/1.73 sq.m. Ages 50-59 = 93 mL/min/1.73 sq.m. Ages 60-69 = 85 mL/min/1.73 sq.m. Ages 70+ = 75 mL/min/1.73 sq.m. Chronic Kidney Disease: Less than 60 mL/min/1.73 square meters End Stage Renal Disease: Less than 15 mL/min/1.73 square meters Performed By: #### A JUAN, MG, CBC, GFR, AFPS, CA19, ADIFF, CMP ####[address] [address] GFR Non- >60 Normal [facility] ([place]) Comment on above: Result Comment: GFR Population mean for , Non- Americans Ages 20-29 = 116 mL/min/1.73 sq.m. Ages 30-39 = 107 mL/min/1.73 sq.m. Ages 40-49 = 99 mL/min/1.73 sq.m. Ages 50-59 = 93 mL/min/1.73 sq.m. Ages 60-69 = 85 mL/min/1.73 sq.m. Ages 70+ = 75 mL/min/1.73 sq.m. Chronic Kidney Disease: Less than 60 mL/min/1.73 square meters End Stage Renal Disease: Less than 15 mL/min/1.73 square meters Performed By: #### A JUAN, MG, CBC, GFR, AFPS, CA19, ADIFF, CMP ####[address] [address] .NEUABSon 11-14-2023 Neutrophil, Absolute 9.6 10 3/mcL High 2.3-8.1 [facility] ([place]) Comment on above: Performed By: #### A JUAN, MG, CBC, GFR, AFPS, CA19, ADIFF, CMP ####[address] [address] AFPSon 11-14-2023 AFP, Tumor Marker <2.2 Normal 0.0-8.5 [facility] ([place]) Comment on above: Result Comment: Test ing performed on the [employer] IM analyzer using direct chemiluminesent technology. Patient results determined by assays using different manufacturers for methods may not be comparable. Performed By: #### A JUAN, MG, CBC, GFR, AFPS, CA19, ADIFF, CMP ####[address] [address] CA19on 11-14-2023 CA 19-9 17.1 U/mL Normal 0.0-35.0 [facility] ([place]) Comment on above: Order Comment: not i n lab Result Comment: Test ing performed on the [employer] IM analyzer using direct chemiluminesent technology. Patient results determined by assays using different manufacturers for methods may not be comparable. Performed By: #### A JUAN, MG, CBC, GFR, AFPS, CA19, ADIFF, CMP ####[place] [address] CBCon 11-14-2023 Erythrocyte distribution width (RBC) [Ratio] 14.1 % Normal 11.5-15.5 [facility] ([place]) Comment on above: Performed By: #### A JUAN, MG, CBC, GFR, AFPS, CA19, ADIFF, CMP ####[place] [address] Hematocrit (Bld) [Volume fraction] 32.6 % Low 40.0-52.0 [facility] ([place]) Comment on above: Performed By: #### A JUAN, MG, CBC, GFR, AFPS, CA19, ADIFF, CMP ####[place] [address] Hgb 10.7 G/dL Low 13.0-17.5 [facility] ([place]) Comment on above: Performed By: #### A JUAN, MG, CBC, GFR, AFPS, CA19, ADIFF, CMP ####[place] [address] MCH (RBC) [Entitic mass] 29.5 pg Normal 27.0-33.0 [facility] ([place]) Comment on above: Performed By: #### A JUAN, MG, CBC, GFR, AFPS, CA19, ADIFF, CMP ####[place] [address] MCHC 32.9 G/dL Normal 32.0-36.0 [facility] ([place]) Comment on above: Performed By: #### A JUAN, MG, CBC, GFR, AFPS, CA19, ADIFF, CMP ####[place] [address] MCV (RBC) [Entitic vol] 89.8 fL Normal 81.0-100.0 [facility] ([place]) Comment on above: Performed By: #### A JUAN, MG, CBC, GFR, AFPS, CA19, ADIFF, CMP ####[place] [address] Platelet 309 10 3/mcL Normal 150-450 [facility] ([place]) Comment on above: Performed By: #### A JUAN, MG, CBC, GFR, AFPS, CA19, ADIFF, CMP ####[place] [address] Platelet mean volume (Bld) [Entitic vol] 8.8 fL Normal 6.4-10.5 [facility] ([place]) Comment on above: Performed By: #### A JUAN, MG, CBC, GFR, AFPS, CA19, ADIFF, CMP ####[place] [address] RBC 3.63 10 6/mcL Low 4.50-6.00 [facility] ([place]) Comment on above: Performed By: #### A JUAN, MG, CBC, GFR, AFPS, CA19, ADIFF, CMP ####[place] [address] WBC 11.4 10 3/mcL High 4.5-10.8 [facility] ([place]) Comment on above: Performed By: #### A JUAN, MG, CBC, GFR, AFPS, CA19, ADIFF, CMP ####[place] [address] CMPon 11-14-2023 Albumin Level 2.0 G/dL Low 3.2-4.8 [facility] ([place]) Comment on above: Performed By: #### A JUAN, MG, CBC, GFR, AFPS, CA19, ADIFF, CMP ####[place] [address] Albumin/Globulin [Mass ratio] 0.5 {ratio} Low 0.9-1.6 [facility] ([place]) Comment on above: Performed By: #### A JUAN, MG, CBC, GFR, AFPS, CA19, ADIFF, CMP ####[place] [address] ALP [Catalytic activity/Vol] 109 U/L Normal 38-126 [facility] ([place]) Comment on above: Performed By: #### A JUAN, MG, CBC, GFR, AFPS, CA19, ADIFF, CMP ####[address] [address] ALT [Catalytic activity/Vol] 22 U/L Normal 12-55 [facility] ([place]) Comment on above: Performed By: #### A JUAN, MG, CBC, GFR, AFPS, CA19, ADIFF, CMP ####[address] [address] AST [Catalytic activity/Vol] 28 U/L Normal 8-34 [facility] ([place]) Comment on above: Performed By: #### A JUAN, MG, CBC, GFR, AFPS, CA19, ADIFF, CMP ####[place] [address] Bili Total 0.60 mg/dL Normal 0.20-1.20 [facility] ([place]) Comment on above: Result Comment: Use of this assay is not recommended for patients undergoing treatment with eltrombopag due to the potential for falsely elevated results. Performed By: #### A JUAN, MG, CBC, GFR, AFPS, CA19, ADIFF, CMP ####[place] [address] BUN/Creatinine Ratio 11.0 ratio Normal 10.0-22.0 [facility] ([place]) Comment on above: Performed By: #### A JUAN, MG, CBC, GFR, AFPS, CA19, ADIFF, CMP ####[place] [address] Calcium [Mass/Vol] 8.2 mg/dL Low 8.7-10.4 [facility] ([place]) Comment on above: Performed By: #### A JUAN, MG, CBC, GFR, AFPS, CA19, ADIFF, CMP ####[place] [address] Chloride [Moles/Vol] 104 mmol/L Normal 98-110 [facility] ([place]) Comment on above: Performed By: #### A JUAN, MG, CBC, GFR, AFPS, CA19, ADIFF, CMP ####[place] [id number] CO2 [Moles/Vol] 26 mmol/L Normal 22-32 [facility] ([place]) Comment on above: Performed By: #### A JUAN, MG, CBC, GFR, AFPS, CA19, ADIFF, CMP ####[place] [address] Creatinine [Mass/Vol] 0.91 mg/dL Normal 0.60-1.40 [facility] ([place]) Comment on above: Performed By: #### A JUAN, MG, CBC, GFR, AFPS, CA19, ADIFF, CMP ####[place] [address] Electrolyte Balance 8.0 mEq/L Normal 4.0-15.0 [facility] ([place]) Comment on above: Performed By: #### A JUAN, MG, CBC, GFR, AFPS, CA19, ADIFF, CMP ####[place] [address] Globulin 4.0 G/dL High 1.5-3.8 [facility] ([place]) Comment on above: Performed By: #### A JUAN, MG, CBC, GFR, AFPS, CA19, ADIFF, CMP ####[place] [address] Glucose [Mass/Vol] 126 mg/dL High 82-115 [facility] ([place]) Comment on above: Performed By: #### A JUAN, MG, CBC, GFR, AFPS, CA19, ADIFF, CMP ####[place] [address] Potassium [Moles/Vol] 4.3 mmol/L Normal 3.5-5.0 [facility] ([place]) Comment on above: Performed By: #### A JUAN, MG, CBC, GFR, AFPS, CA19, ADIFF, CMP ####[place] [address] Sodium [Moles/Vol] 138 mmol/L Normal 136-145 [facility] ([place]) Comment on above: Performed By: #### A JUAN, MG, CBC, GFR, AFPS, CA19, ADIFF, CMP ####[place] [address] Total Protein 6.0 G/dL Normal 5.7-8.2 [facility] ([place]) Comment on above: Result Comment: No te - New Reference Range in effect 20 Performed By: #### A JUAN, MG, CBC, GFR, AFPS, CA19, ADIFF, CMP ####[address] [address] Urea nitrogen [Mass/Vol] 10.0 mg/dL Normal 8.0-22.0 [facility] ([place]) Comment on above: Performed By: #### A JUAN, MG, CBC, GFR, AFPS, CA19, ADIFF, CMP ####[place] [address] LABORATORYOrdered By: SYSTEM SYSTEM on 11-14-2023 AFP [Mass/Vol] ng/mL Normal 0.0 - 8.5 ng/mL [facility] Comment on above: Interpretive Data: T esting performed on the [employer] IM analyzer using direct chemiluminesent technology. Patient results determined by assays using different manufacturers for methods may not be comparable. Cancer Ag 19-9 Qn 17.1 [arb'U]/mL Normal 0.0 - 3 5.0 U/mL [facility] Comment on above: Interpretive Data: T esting performed on the [employer] IM analyzer using direct chemiluminesent technology. Patient results determined by assays using different manufacturers for methods may not be comparable. Magnesium [Mass/Vol] 2.1 mg/dL Normal 1.6 - 2 .4 mg/dL [facility] SS MGon 11-14-2023 Magnesium [Mass/Vol] 2.1 mg/dL Normal 1.6-2.4 [facility] ([place]) Comment on above: Performed By: #### A JUAN, MG, CBC, GFR, AFPS, CA19, ADIFF, CMP ####[address] [address] US ABDOMEN LIMITEDon 024 US ABDOMEN LIMITED ORIGINAL EXAMINATION: LIMITED ABDOMINAL ULTRASOUND11/14/2023 6:52 am Limited ultrasound of the abdomen attention right upper quadrant COMPARISON: CT 11/13/2023 HISTORY: ORDERING SYSTEM PROVIDED HISTORY: Reason for Exam: Pancreatitis R/O gallstones, abnormal CT, liver lesion FINDINGS: The gallbladder is moderately distended. There is mild gallbladder wall thickening and some minimal pericholecystic edema. No gallstones. Unreliable Sommers sign due to patient being medicated. There is no intrahepatic bile duct dilatation. The common duct is 9-10 mm at the hyacinth hepatis. No stone is seen in the visualized portions of the duct. The liver is normal in size. Background echogenicity is within normal limits. There is a large focal masslike abnormality in the right lobe that is mixed cystic and solid. This is about 11.4 cm in maximum diameter with only minimal blood flow in its peripheral portions. No other liver lesion is seen. The pancreas is mostly obscured by artifacts and poorly evaluated. No ascites is seen in the RIGHT upper quadrant. Limited survey images of the RIGHT kidney show normal echogenicity and no pelvocaliectasis. IMPRESSION: Large complex liver lesion. The liver abscess should be the primary consideration, necrotic neoplasm is possible but less likely. Common duct dilatation. The pancreas is completely obscured. Reactive changes of the gallbladder. No gallstones. Interpreted by: Víctor Clement MD Preliminary Report By: Víctor Clement MD Electronically signed By Víctor Clement MD Dictated Date: 11/14/2023 10:04:46 AM Prelim Date: 11/14/2023 10:09:36 AM Sign Date: 11/14/2023 10:09:36 AM Ordering Provider: ATIF Peoples [facility] ([place]) .Auto Diffon 11-13-2023 Basophil, Absolute 0.2 10 3/mcL Normal 0.0-0.3 [facility] ([place]) Comment on above: Performed By: #### G FR, LIPID, TROPHS, CMP, ADIFF, ANEU, CBC ####[place] [id number] [address] [place] [address] Basophils/100 WBC (Bld) 1.1 % Normal 0.0-2.5 [facility] ([place]) Comment on above: Performed By: #### G FR, LIPID, TROPHS, CMP, ADIFF, ANEU, CBC ####[place] [id number] [address] [place] [address] Eosinophil, Absolute 0.0 10 3/mcL Normal 0.0-0.7 [facility] ([place]) Comment on above: Performed By: #### G FR, LIPID, TROPHS, CMP, ADIFF, ANEU, CBC ####[address] [address] Eosinophils/100 WBC (Bld) 0.1 % Normal 0.0-6.0 [facility] ([place]) Comment on above: Performed By: #### G FR, LIPID, TROPHS, CMP, ADIFF, ANEU, CBC ####[address] [address] Lymphocyte, Absolute 1.3 10 3/mcL Normal 0.9-4.3 [facility] ([place]) Comment on above: Performed By: #### G FR, LIPID, TROPHS, CMP, ADIFF, ANEU, CBC ####[address] [address] Lymphocytes/100 WBC (Bld) 7.6 % Low 20.0-40.0 [facility] ([place]) Comment on above: Performed By: #### G FR, LIPID, TROPHS, CMP, ADIFF, ANEU, CBC ####[address] [address] Monocyte, Absolute 0.8 10 3/mcL Normal 0.1-1.4 [facility] ([place]) Comment on above: Performed By: #### G FR, LIPID, TROPHS, CMP, ADIFF, ANEU, CBC ####[address] [address] Monocytes/100 WBC (Bld) 4.8 % Normal 2.0-13.0 [facility] ([place]) Comment on above: Performed By: #### G FR, LIPID, TROPHS, CMP, ADIFF, ANEU, CBC ####[address] [address] Neutrophils/100 WBC (Bld) 86.4 % High 50.0-75.0 [facility] ([place]) Comment on above: Performed By: #### G FR, LIPID, TROPHS, CMP, ADIFF, ANEU, CBC ####[address] [address] .GFRon 11-13-2023 GFR >60 Normal [facility] ([place]) Comment on above: Result Comment: GFR Population mean for , Non- Americans Ages 20-29 = 116 mL/min/1.73 sq.m. Ages 30-39 = 107 mL/min/1.73 sq.m. Ages 40-49 = 99 mL/min/1.73 sq.m. Ages 50-59 = 93 mL/min/1.73 sq.m. Ages 60-69 = 85 mL/min/1.73 sq.m. Ages 70+ = 75 mL/min/1.73 sq.m. Chronic Kidney Disease: Less than 60 mL/min/1.73 square meters End Stage Renal Disease: Less than 15 mL/min/1.73 square meters Performed By: #### G FR, LIPID, TROPHS, CMP, ADIFF, ANEU, CBC ####[place] [address] GFR Non- >60 Normal [facility] ([place]) Comment on above: Result Comment: GFR Population mean for , Non- Americans Ages 20-29 = 116 mL/min/1.73 sq.m. Ages 30-39 = 107 mL/min/1.73 sq.m. Ages 40-49 = 99 mL/min/1.73 sq.m. Ages 50-59 = 93 mL/min/1.73 sq.m. Ages 60-69 = 85 mL/min/1.73 sq.m. Ages 70+ = 75 mL/min/1.73 sq.m. Chronic Kidney Disease: Less than 60 mL/min/1.73 square meters End Stage Renal Disease: Less than 15 mL/min/1.73 square meters Performed By: #### G FR, LIPID, TROPHS, CMP, ADIFF, ANEU, CBC ####[address] [address] .NEUABSon 11-13-2023 Neutrophil, Absolute 14.5 10 3/mcL High 2.3-8.1 [facility] ([place] Comment on above: Performed By: #### G FR, LIPID, TROPHS, CMP, ADIFF, ANEU, CBC ####[address] [address] A1Con 11-13-2023 HbA1c (Bld) [Mass fraction] 11.2 % High 4.0-6.0 [facility] ([place]) Comment on above: Performed By: #### M G, PHOS, TROPHS, CKMBM, CKMB, A1C ####[place] [address] CBCon 11-13-2023 Erythrocyte distribution width (RBC) [Ratio] 14.1 % Normal 11.5-15.5 [facility] ([place]) Comment on above: Performed By: #### G FR, LIPID, TROPHS, CMP, ADIFF, ANEU, CBC ####[place] [address] Hematocrit (Bld) [Volume fraction] 33.6 % Low 40.0-52.0 [facility] ([place] Comment on above: Performed By: #### G FR, LIPID, TROPHS, CMP, ADIFF, ANEU, CBC ####[place] [address] Hgb 11.3 G/dL Low 13.0-17.5 [facility] ([place]) Comment on above: Performed By: #### G FR, LIPID, TROPHS, CMP, ADIFF, ANEU, CBC ####[place] [address] MCH (RBC) [Entitic mass] 29.4 pg Normal 27.0-33.0 [facility] ([place]) Comment on above: Performed By: #### G FR, LIPID, TROPHS, CMP, ADIFF, ANEU, CBC ####[place] [address] MCHC 33.6 G/dL Normal 32.0-36.0 [facility] ([place]) Comment on above: Performed By: #### G FR, LIPID, TROPHS, CMP, ADIFF, ANEU, CBC ####[place] [address] MCV (RBC) [Entitic vol] 87.5 fL Normal 81.0-100.0 [facility] ([place] Comment on above: Performed By: #### G FR, LIPID, TROPHS, CMP, ADIFF, ANEU, CBC ####[place] [address] Platelet 351 10 3/mcL Normal 150-450 [facility] ([place]) Comment on above: Performed By: #### G FR, LIPID, TROPHS, CMP, ADIFF, ANEU, CBC ####[place] [address] Platelet mean volume (Bld) [Entitic vol] 8.4 fL Normal 6.4-10.5 [facility] ([place]) Comment on above: Performed By: #### G FR, LIPID, TROPHS, CMP, ADIFF, ANEU, CBC ####[place] [address] RBC 3.84 10 6/mcL Low 4.50-6.00 [facility] ([place]) Comment on above: Performed By: #### G FR, LIPID, TROPHS, CMP, ADIFF, ANEU, CBC ####[place] [address] WBC 16.8 10 3/mcL High 4.5-10.8 [facility] ([place]) Comment on above: Performed By: #### G FR, LIPID, TROPHS, CMP, ADIFF, ANEU, CBC ####[place] [address] CK-Tiburcio 11-13-2023 Relative Index Not Valid Normal 0.0-4.5 [facility] ([place]) Comment on above: Result Comment: CPK <185 invalidates relative index Performed By: #### M G, PHOS, TROPHS, CKMBM, CKMB, A1C ####[place] [address] CK [Catalytic activity/Vol] 18 U/L Normal 7-185 [facility] ([place]) Comment on above: Performed By: #### M G, PHOS, TROPHS, CKMBM, CKMB, A1C ####[place] [address] CKMBMon 11-13-2023 CK.MB [Mass/Vol] Not performed Normal 0.00-5.00 [facility] ([place]) Comment on above: Result Comment: CKMB result not performed when CPK < 75 Note - New Reference Range in effect 20 Performed By: #### M G, PHOS, TROPHS, CKMBM, CKMB, A1C ####[place] [address] CMPon 11-13-2023 Albumin Level 1.9 G/dL Low 3.2-4.8 [facility] ([place]) Comment on above: Performed By: #### G FR, LIPID, TROPHS, CMP, ADIFF, ANEU, CBC ####[place] [address] Albumin/Globulin [Mass ratio] 0.5 {ratio} Low 0.9-1.6 [facility] ([place] Comment on above: Performed By: #### G FR, LIPID, TROPHS, CMP, ADIFF, ANEU, CBC ####[place] [address] ALP [Catalytic activity/Vol] 115 U/L Normal 38-126 [facility] ([place]) Comment on above: Performed By: #### G FR, LIPID, TROPHS, CMP, ADIFF, ANEU, CBC ####[place] [address] ALT [Catalytic activity/Vol] 14 U/L Normal 12-55 [facility] ([place]) Comment on above: Performed By: #### G FR, LIPID, TROPHS, CMP, ADIFF, ANEU, CBC ####[place] [address] AST [Catalytic activity/Vol] 22 U/L Normal 8-34 [facility] ([place]) Comment on above: Performed By: #### G FR, LIPID, TROPHS, CMP, ADIFF, ANEU, CBC ####[place] [address] Bili Total 0.70 mg/dL Normal 0.20-1.20 [facility] ([place]) Comment on above: Result Comment: Use of this assay is not recommended for patients undergoing treatment with eltrombopag due to the potential for falsely elevated results. Performed By: #### G FR, LIPID, TROPHS, CMP, ADIFF, ANEU, CBC ####[place] [address] BUN/Creatinine Ratio 9.9 ratio Low 10.0-22.0 [facility] ([place]) Comment on above: Performed By: #### G FR, LIPID, TROPHS, CMP, ADIFF, ANEU, CBC ####[place] [address] Calcium [Mass/Vol] 8.3 mg/dL Low 8.7-10.4 [facility] ([place]) Comment on above: Performed By: #### G FR, LIPID, TROPHS, CMP, ADIFF, ANEU, CBC ####[place] [address] Chloride [Moles/Vol] 101 mmol/L Normal 98-110 [facility] ([place]) Comment on above: Performed By: #### G FR, LIPID, TROPHS, CMP, ADIFF, ANEU, CBC ####[place] [id number] CO2 [Moles/Vol] 28 mmol/L Normal 22-32 [facility] ([place]) Comment on above: Performed By: #### G FR, LIPID, TROPHS, CMP, ADIFF, ANEU, CBC ####[place] [address] Creatinine [Mass/Vol] 1.01 mg/dL Normal 0.60-1.40 [facility] ([place]) Comment on above: Performed By: #### G FR, LIPID, TROPHS, CMP, ADIFF, ANEU, CBC ####[place] [address] Electrolyte Balance 9.0 mEq/L Normal 4.0-15.0 [facility] ([place]) Comment on above: Performed By: #### G FR, LIPID, TROPHS, CMP, ADIFF, ANEU, CBC ####[address] [address] Globulin 4.1 G/dL High 1.5-3.8 [facility] ([place]) Comment on above: Performed By: #### G FR, LIPID, TROPHS, CMP, ADIFF, ANEU, CBC ####[address] [address] Glucose [Mass/Vol] 119 mg/dL High 82-115 [facility] ([place]) Comment on above: Performed By: #### G FR, LIPID, TROPHS, CMP, ADIFF, ANEU, CBC ####[address] [address] Potassium [Moles/Vol] 4.1 mmol/L Normal 3.5-5.0 [facility] ([place] Comment on above: Performed By: #### G FR, LIPID, TROPHS, CMP, ADIFF, ANEU, CBC ####[address] [address] Sodium [Moles/Vol] 138 mmol/L Normal 136-145 [facility] ([place]) Comment on above: Performed By: #### G FR, LIPID, TROPHS, CMP, ADIFF, ANEU, CBC ####[place] [address] Total Protein 6.0 G/dL Normal 5.7-8.2 [facility] ([place]) Comment on above: Result Comment: No te - New Reference Range in effect 20 Performed By: #### G FR, LIPID, TROPHS, CMP, ADIFF, ANEU, CBC ####[place] [address] Urea nitrogen [Mass/Vol] 10.0 mg/dL Normal 8.0-22.0 [facility] ([place]) Comment on above: Performed By: #### G FR, LIPID, TROPHS, CMP, ADIFF, ANEU, CBC ####[address] [address] [address] ABD/PELVIS W/ IV CONTRAST ONLYon 11-13-2023 CT ABD/PELVIS W/ IV CONTRAST ONLY ORIGINAL EXAMINATION: CT OF THE ABDOMEN AND PELVIS WITH CONTRAST 11/13/2023 1:07 pm TECHNIQUE: CT of the abdomen and pelvis was performed with the administration of intravenous contrast. Multiplanar reformatted images are provided for review. Automated exposure control, iterative reconstruction, and/or weight based adjustment of the mA/kV was utilized to reduce the radiation dose to as low as reasonably achievable. COMPARISON: None. HISTORY: ORDERING SYSTEM PROVIDED HISTORY: Reason for Exam: abd pain, chronic pancreatitis, nausea, cramping abdominal pain FINDINGS: Ozag-pr-wdhyvmai degenerative changes are noted in the spine. Several left posterolateral rib deformities are noted from remote injury. Mild hip osteoarthritis is evident. The lung bases are unremarkable. Very prominent central and inferior liver abnormality is evident. Heterogeneous area measures up to 11.8 cm in size, and there are discrete areas of diminished density present suggesting fluid or necrosis. Anteriorly, 1 of the larger such areas measures 4.9 cm. There are other smaller areas of fluid, cystic, or necrotic density within the area as well. No biliary dilatation seen. The spleen and adrenal glands are unremarkable. A tiny right renal cyst is present. No other kidney finding. The body and tail of the pancreas are either extremely atrophic or absent. The head of the pancreas appears rounded and masslike. There is a coarse 9 mm calcification at the pancreatic head which may be dystrophic. I do not identify significant infiltrative change surrounding the pancreatic head. A small amount of fluid is evident within the lesser sac. Hyacinth hepatis adenopathy is evident, 1.9 cm. No other adenopathy is seen. No free air is visible. The urinary bladder is grossly normal. No GI tract abnormality is evident. No additional contributory finding seen. IMPRESSION: 1. Prominent central and inferior liver abnormality. Necrotic neoplasm and intrahepatic abscesses are the leading considerations. 2. Masslike prominence of the head of the pancreas with prominent atrophy of the pancreatic body and tail. Focal pancreatitis could have this appearance, although pancreatic malignancy must be strongly considered. 3. Hyacinth hepatis adenopathy. This could be reactive, hyperplastic, inflammatory, or neoplastic. 4. Small amount of fluid in the lesser sac. Interpreted by: Mireya Marley MD Preliminary Report By: Mireya Marley MD Electronically signed By Mireya Marley MD Dictated Date: 11/13/2023 1:09:02 PM Prelim Date: 11/13/2023 1:16:40 PM Sign Date: 11/13/2023 1:16:40 PM Ordering Provider: CHERYL CHE [facility] ([place]) LABORATORYOrdered By: LABCOR P CONTRIBUTOR_SYSTEM on 11-13-2023 IgG [Mass/Vol] 1221 mg/dL Invalid Interpretation Code 604-7987 [facility] SS IgG Subclass 1 (LC) 549 mg/dL Invalid Interpretation Code 248-810 [facility] SS IgG Subclass 2 (LC) 316 mg/dL Invalid Interpretation Code 130-555 [facility] SS IgG Subclass 3 (LC) 100 mg/dL Invalid Interpretation Code 15-102 [facility] SS IgG Subclass 4 (LC) 175 mg/dL High 2-96 [facility] SS Comment on above: Result Comment: Perf ormed At: [facility] [address] [id number] Bri Vo PhD Ph:[phone] LABORATORYOrdered By: Aleja Lara on 11-13-2023 Cholesterol [Mass/Vol] 48 mg/dL Low 50 - 199 mg/dL AH ADM SS Comment on above: Interpretive Data: C holesterol Reference Interval: Less than 200 Desirable 200-239 Borderline high risk 240 and above High risk Cholesterol in HDL [Mass/Vol] 10 mg/dL Low 40 - 59 mg/dL AH ADM SS Cholesterol in LDL [Mass/Vol] 22 mg/dL Normal 0 - 129 mg/dL AH ADM SS Triglyceride [Mass/Vol] 79 mg/dL Normal 3 - 149 mg/dL AH ADM SS LABORATORYOrdered By: SYSTEM SYSTEM on 11-13-2023 Troponin I.cardiac DL <= 0.01 ng/mL [Mass/Vol] 4 ng/L Normal 0 - 54 ng/L AH ADM SS Comment on above: Interpretive Data: High Sensitive Troponin I Reference Ranges: Female: 0-34 ng/L Male: 0-54 ng/L Testing performed on [employer] analyzer using direct chemiluminescent technology. LIPIDon 11-13-2023 Cholesterol [Mass/Vol] 48 mg/dL Low 50-199 [facility] ([place]) Comment on above: Result Comment: Chol esterol Reference Interval: Less than 200 Desirable 200-239 Borderline high risk 240 and above High risk Performed By: #### G FR, LIPID, TROPHS, CMP, ADIFF, ANEU, CBC ####[place] [address] Cholesterol in HDL [Mass/Vol] 10 mg/dL Low 40-59 [facility] ([place]) Comment on above: Performed By: #### G FR, LIPID, TROPHS, CMP, ADIFF, ANEU, CBC ####[address] [address] Cholesterol in LDL [Mass/Vol] 22 mg/dL Normal 0-129 [facility] ([place]) Comment on above: Performed By: #### G FR, LIPID, TROPHS, CMP, ADIFF, ANEU, CBC ####[address] [address] Triglyceride [Mass/Vol] 79 mg/dL Normal 3-149 [facility] ([place]) Comment on above: Performed By: #### G FR, LIPID, TROPHS, CMP, ADIFF, ANEU, CBC ####[address] [address] MGon 11-13-2023 Magnesium [Mass/Vol] 1.6 mg/dL Normal 1.6-2.4 [facility] ([place]) Comment on above: Performed By: #### M G, PHOS, TROPHS, CKMBM, CKMB, A1C ####[address] [address] PHOSon 11-13-2023 Phosphate [Mass/Vol] 3.9 mg/dL Normal 2.4-5.1 [facility] ([place]) Comment on above: Result Comment: No te - New Reference Range in effect 20 Performed By: #### M G, PHOS, TROPHS, CKMBM, CKMB, A1C ####[address] [address] TROPHSon 11-13-2023 High Sensitivity Troponin I 4 ng/L Normal 0-54 [facility] ([place]) Comment on above: Result Comment: High Sensitive Troponin I Reference Ranges: Female: 0-34 ng/L Male: 0-54 ng/L Testing performed on [employer] analyzer using direct chemiluminescent technology. Performed By: #### G FR, LIPID, TROPHS, CMP, ADIFF, ANEU, CBC ####[place] [address] High Sensitivity Troponin I 3 ng/L Normal 0-54 [facility] ([place]) Comment on above: Order Comment: no sp ecimens received. per collection time, specimens have exceeded 2hr testing window. Result Comment: High Sensitive Troponin I Reference Ranges: Female: 0-34 ng/L Male: 0-54 ng/L Testing performed on [employer] analyzer using direct chemiluminescent technology. Performed By: #### M G, PHOS, TROPHS, CKMBM, CKMB, A1C ####[address] [address] .Auto Diffon 11-12-2023 Basophil, Absolute 0.1 10 3/mcL Normal 0.0-0.3 [facility] ([place]) Comment on above: Performed By: #### C DANILO WOODSON MDW, ANEU, LIP, GFR, PRO, CBC ####[address] [address] Basophils/100 WBC (Bld) 0.4 % Normal 0.0-2.5 [facility] ([place]) Comment on above: Performed By: #### C DANILO WOODSON MDW, ANEU, LIP, GFR, PRO, CBC ####[address] [address] Eosinophil, Absolute 0.0 10 3/mcL Normal 0.0-0.7 [facility] ([place]) Comment on above: Performed By: #### C DANILO WOODSON MDW, ANEU, LIP, GFR, PRO, CBC ####[address] [address] Eosinophils/100 WBC (Bld) 0.2 % Normal 0.0-6.0 [facility] ([place]) Comment on above: Performed By: #### C DANILO WOODSON MDW, ANEU, LIP, GFR, PRO, CBC ####[address] [address] Lymphocyte, Absolute 1.4 10 3/mcL Normal 0.9-4.3 [facility] ([place]) Comment on above: Performed By: #### C KANDICE, DANILO, LAUREN, ANEU, LIP, GFR, PRO, CBC ####[address] [address] Lymphocytes/100 WBC (Bld) 9.5 % Low 20.0-40.0 [facility] ([place]) Comment on above: Performed By: #### C DANILO WOODSON MDW, ANEU, LIP, GFR, PRO, CBC ####[address] [address] Monocyte, Absolute 0.9 10 3/mcL Normal 0.1-1.4 [facility] ([place]) Comment on above: Performed By: #### C DANILO WOODSON MDW, ANEU, LIP, GFR, PRO, CBC ####[address] [address] Monocytes/100 WBC (Bld) 6.0 % Normal 2.0-13.0 [facility] ([place]) Comment on above: Performed By: #### C DANILO WOODSON MDW, ANEU, LIP, GFR, PRO, CBC ####[address] [address] Neutrophils/100 WBC (Bld) 83.9 % High 50.0-75.0 [facility] ([place]) Comment on above: Performed By: #### C DANILO WOODSON MDW, ANEU, LIP, GFR, PRO, CBC ####[address] [address] .GFRon 11-12-2023 GFR >60 Normal [facility] ([place]) Comment on above: Result Comment: GFR Population mean for , Non- Americans Ages 20-29 = 116 mL/min/1.73 sq.m. Ages 30-39 = 107 mL/min/1.73 sq.m. Ages 40-49 = 99 mL/min/1.73 sq.m. Ages 50-59 = 93 mL/min/1.73 sq.m. Ages 60-69 = 85 mL/min/1.73 sq.m. Ages 70+ = 75 mL/min/1.73 sq.m. Chronic Kidney Disease: Less than 60 mL/min/1.73 square meters End Stage Renal Disease: Less than 15 mL/min/1.73 square meters Performed By: #### [facility] #### [address] [address] GFR Non- >60 Normal [facility] ([place]) Comment on above: Result Comment: GFR Population mean for , Non- Americans Ages 20-29 = 116 mL/min/1.73 sq.m. Ages 30-39 = 107 mL/min/1.73 sq.m. Ages 40-49 = 99 mL/min/1.73 sq.m. Ages 50-59 = 93 mL/min/1.73 sq.m. Ages 60-69 = 85 mL/min/1.73 sq.m. Ages 70+ = 75 mL/min/1.73 sq.m. Chronic Kidney Disease: Less than 60 mL/min/1.73 square meters End Stage Renal Disease: Less than 15 mL/min/1.73 square meters Performed By: #### T SHIRA #### [address] [address] .MDWon 11-12-2023 Monocyte Distribution Width 22.82 High 0.00-20.00 [facility] ([place]) Comment on above: Result Comment: For adults in ED, MDW>20.0 may be associated with a higher risk of sepsis during the first 12hrs of hospital admission Performed By: #### C DANILO WOODSON MDW, ANEU, LIP, GFR, PRO, CBC ####[place] [address] .NEUABSon 11-12-2023 Neutrophil, Absolute 12.7 10 3/mcL High 2.3-8.1 [facility] ([place]) Comment on above: Performed By: #### C DANILO WOODSON MDW, ANEU, LIP, GFR, PRO, CBC ####[place] [address] APTTon 11-12-2023 aPTT Coag (Bld) [Time] 36.2 s High 25.0-35.0 [facility] ([place]) Comment on above: Result Comment: For Heparin anticoagulation therapy, the recommended therapeutic range is: 54-77 seconds (APTT Correlation with Anti-Xa therapeutic range of 0.3-0.7 units/ml). PLEASE REFERENCE THE PHARMACY PROTOCOL FOR DOSING. Performed By: #### T SHIRA #### [place] [address] Heparin dose (APTT) None Normal [facility] ([place]) Comment on above: Performed By: #### [facility] #### [place] [address] CBCon 11-12-2023 Erythrocyte distribution width (RBC) [Ratio] 14.3 % Normal 11.5-15.5 [facility] ([place]) Comment on above: Performed By: #### C DANILO WOODSON MDW, ANEU, LIP, GFR, PRO, CBC ####[place] [address] Hematocrit (Bld) [Volume fraction] 40.1 % Normal 40.0-52.0 [facility] ([place]) Comment on above: Performed By: #### C DANILO WOODSON MDW, ANEU, LIP, GFR, PRO, CBC ####[place] [address] Hgb 13.2 G/dL Normal 13.0-17.5 [facility] ([place]) Comment on above: Performed By: #### C DANILO WOODSON MDW, ANEU, LIP, GFR, PRO, CBC ####[place] [address] MCH (RBC) [Entitic mass] 29.2 pg Normal 27.0-33.0 [facility] ([place]) Comment on above: Performed By: #### C DANILO WOODSON MDW, ANEU, LIP, GFR, PRO, CBC ####[place] [address] MCHC 33.0 G/dL Normal 32.0-36.0 [facility] ([place]) Comment on above: Performed By: #### C DANILO WOODSON MDW, ANEU, LIP, GFR, PRO, CBC ####[place] [address] MCV (RBC) [Entitic vol] 88.4 fL Normal 81.0-100.0 [facility] ([place]) Comment on above: Performed By: #### C DANILO WOODSON MDW, ANEU, LIP, GFR, PRO, CBC ####[place] [id number] Platelet 425 10 3/mcL Normal 150-450 [facility] ([place]) Comment on above: Performed By: #### C DANILO WOODSON MDW, ANEU, LIP, GFR, PRO, CBC ####[address] [address] Platelet mean volume (Bld) [Entitic vol] 8.5 fL Normal 6.4-10.5 [facility] ([place]) Comment on above: Performed By: #### C DANILO WOODSON MDW, ANEU, LIP, GFR, PRO, CBC ####[place] [id number] RBC 4.54 10 6/mcL Normal 4.50-6.00 [facility] ([place]) Comment on above: Performed By: #### C DANILO WOODSON MDW, ANEU, LIP, GFR, PRO, CBC ####[place] [id number] WBC 15.2 10 3/mcL High 4.5-10.8 [facility] ([place]) Comment on above: Performed By: #### C DANILO WOODSON MDW, ANEU, LIP, GFR, PRO, CBC ####[place] [address] CMPon 11-12-2023 Albumin Level 2.6 G/dL Low 3.2-4.8 [facility] ([place]) Comment on above: Performed By: #### T SHIRA #### [place] [id number] Albumin/Globulin [Mass ratio] 0.5 {ratio} Low 0.9-1.6 [facility] ([place]) Comment on above: Performed By: #### T SHIRA #### [place] [id number] ALP [Catalytic activity/Vol] 132 U/L High 38-126 [facility] ([place]) Comment on above: Performed By: #### T SHIRA #### [facility] [address] [place], [place] [address] ALT [Catalytic activity/Vol] 19 U/L Normal 12-55 [facility] ([place]) Comment on above: Performed By: #### T SHIRA #### [address] [address] AST [Catalytic activity/Vol] 25 U/L Normal 8-34 [facility] ([place]) Comment on above: Performed By: #### T SHIRA #### [address] [address] Bili Total 0.60 mg/dL Normal 0.20-1.20 [facility] ([place]) Comment on above: Result Comment: Use of this assay is not recommended for patients undergoing treatment with eltrombopag due to the potential for falsely elevated results. Performed By: #### T SHIRA #### [place] [id number] BUN/Creatinine Ratio 11.3 ratio Normal 10.0-22.0 [facility] ([place]) Comment on above: Performed By: #### T SHIRA #### [place] [id number] Calcium [Mass/Vol] 9.3 mg/dL Normal 8.7-10.4 [facility] ([place]) Comment on above: Performed By: #### T SHIRA #### [address] [address] Chloride [Moles/Vol] 98 mmol/L Normal 98-110 [facility] ([place]) Comment on above: Performed By: #### T SHIRA #### [address] [address] CO2 [Moles/Vol] 27 mmol/L Normal 22-32 [facility] ([place]) Comment on above: Performed By: #### T SHIRA #### [address] [address] Creatinine [Mass/Vol] 0.97 mg/dL Normal 0.60-1.40 [facility] ([place]) Comment on above: Performed By: #### T SHIRA #### [place] [id number] Electrolyte Balance 9.0 mEq/L Normal 4.0-15.0 [facility] ([place]) Comment on above: Performed By: #### T SHIRA #### [address] [address] Globulin 5.6 G/dL High 1.5-3.8 [facility] ([place]) Comment on above: Performed By: #### T SHIRA #### [address] [address] Glucose [Mass/Vol] 112 mg/dL Normal 82-115 [facility] ([place]) Comment on above: Performed By: #### T SHIRA #### [address] [address] Potassium [Moles/Vol] 3.9 mmol/L Normal 3.5-5.0 [facility] ([place] Comment on above: Performed By: #### T SHIRA #### [address] [address] Sodium [Moles/Vol] 134 mmol/L Low 136-145 [facility] ([place]) Comment on above: Performed By: #### T SHIRA #### [address] [address] Total Protein 8.2 G/dL Normal 5.7-8.2 [facility] ([place]) Comment on above: Result Comment: No te - New Reference Range in effect 20 Performed By: #### T SHIRA #### [address] [address] Urea nitrogen [Mass/Vol] 11.0 mg/dL Normal 8.0-22.0 [facility] ([place]) Comment on above: Performed By: #### T SHIRA #### [address] [address] [address] ANGIOGRAPHY HEAD W/ CONTR Aneesh 11-12-2023 CT ANGIOGRAPHY HEAD W/ CONTRAST ORIGINAL EXAMINATION: CTA OF THE HEAD WITH CONTRAST 11/12/2023 5:19 pm: TECHNIQUE: CTA of the head/brain was performed with the administration of intravenous contrast. Multiplanar reformatted images are provided for review. MIP images are provided for review. Automated exposure control, iterative reconstruction, and/or weight based adjustment of the mA/kV was utilized to reduce the radiation dose to as low as reasonably achievable. COMPARISON: None. HISTORY: ORDERING SYSTEM PROVIDED HISTORY: Reason for Exam: LEFT SIDED FACIAL NUMBNESS X 1 DAY, PREVIOUS HX OF 5 TIA'S. NO SX OR CA L facial and arm numbness FINDINGS: ANTERIOR CIRCULATION: No significant stenosis of the intracranial internal carotid, anterior cerebral, or middle cerebral arteries. No aneurysm. The anterior communicating artery is seen. POSTERIOR CIRCULATION: No significant stenosis of the vertebral, basilar, or posterior cerebral arteries. No aneurysm. Left dominant vertebral artery with diminutive right distal V4 segment vertebral artery. Neither of the posterior communicating arteries are definitively seen. OTHER: No dural venous sinus thrombosis on this non-dedicated study. BRAIN: No mass effect or midline shift. No extra-axial fluid collection. The toribio-white differentiation is maintained. IMPRESSION: No evidence of major arterial occlusion, aneurysm, or significant stenosis. Interpreted by: Alycia Hawk Preliminary Report By: Alycia Hawk Electronically signed By Alycia Hawk Dictated Date: 11/12/2023 5:25:44 PM Prelim Date: 11/12/2023 5:27:59 PM Sign Date: 11/12/2023 5:27:59 PM Ordering Provider: MARSHALL PEACE [facility] ([place]) CT ANGIOGRAPHY NECK W/CONTRA Rosemarie 11-12-2023 CT ANGIOGRAPHY NECK W/CONTRAST ORIGINAL EXAMINATION: CTA OF THE NECK11/12/2023 5:19 pm TECHNIQUE: CTA of the neck was performed with the administration of intravenous contrast. Multiplanar reformatted images are provided for review. MIP images are provided for review. Stenosis of the internal carotid arteries measured using NASCET criteria. Automated exposure control, iterative reconstruction, and/or weight based adjustment of the mA/kV was utilized to reduce the radiation dose to as low as reasonably achievable. COMPARISON: None HISTORY: ORDERING SYSTEM PROVIDED HISTORY: Reason for Exam: LEFT SIDED FACIAL NUMBNESS X 1 DAY, PREVIOUS HX OF 5 TIA'S. NO SX OR CA L facial and arm numbness FINDINGS: Aortic arch is mildly atherosclerotic. At the right carotid bifurcation region, there is mild atherosclerotic disease, however no hemodynamically significant stenosis. At the left carotid bifurcation region, there is mild atherosclerotic disease, however no hemodynamically significant stenosis. Vertebral artery dominance: Left Both vertebral arteries are visualized from origin through basilar confluence. NASCET criteria used where applicable. Incidental note of a 6 mm left internal mammary lymph node. Areas of suspected mild to moderate spinal canal narrowing secondary to degenerative disc disease which is not well evaluated on this exam. Multilevel degenerative changes of the spine including a partially sclerotic and heterogeneous appearance of the bones. Periapical lucencies as well as dental fillings noted limiting evaluation. Aerated secretions within the left maxillary sinus with additional areas of mucosal thickening in the paranasal sinuses suggestive of acute sinusitis in the appropriate clinical setting. IMPRESSION: No hemodynamically significant stenosis of either carotid bifurcation. Incidental note of a 6 mm left internal mammary lymph node of unknown clinical significance. Correlate clinically and consider short-term follow-up as well as correlating with patient history for any evidence of cancer history, including breast. Degenerative disc disease resulting in areas of suspected mild to moderate spinal canal narrowing. Correlate with any radiculopathy. Periapical lucencies. Dental consultation recommended. Heterogeneous appearance of the bones which is nonspecific and may be seen with normal aging, bone marrow reconversion, blood cell disorders or possible metabolic disorders. Findings suggestive of acute sinusitis as above. I have personally reviewed the images of this examination and agree with the resident's findings and interpretation. Interpreted by: Alycia Hawk Preliminary Report By: Lili Pruitt Electronically signed By Alycia aHwk Dictated Date: 11/12/2023 5:22:11 PM Prelim Date: 11/12/2023 5:43:14 PM Sign Date: 11/12/2023 5:50:11 PM Ordering Provider: MARSHALL Peoples [facility] ([place]) CT HEAD OR BRAIN W/O JIGNESH King 11-12-2023 CT HEAD OR BRAIN W/O CONTRAST ORIGINAL EXAMINATION: CT OF THE HEAD WITHOUT CONTRAST 11/12/2023 5:04 pm TECHNIQUE: CT of the head was performed without the administration of intravenous contrast. Automated exposure control, iterative reconstruction, and/or weight based adjustment of the mA/kV was utilized to reduce the radiation dose to as low as reasonably achievable. COMPARISON: None. HISTORY: ORDERING SYSTEM PROVIDED HISTORY: Reason for Exam: LEFT SIDED FACIAL NUMBNESS X 1 DAY, PREVIOUS HX OF 5 TIA'S. NO SX OR CA L facial and arm numbness FINDINGS: BRAIN/VENTRICLES: There is no acute intracranial hemorrhage, mass effect or midline shift. No abnormal extra-axial fluid collection. Small chronic appearing insult in the right posterior temporal-occipital lobe. Chronic appearing small insult in the right thalamus. Otherwise, the toribio-white differentiation is maintained without evidence of an acute infarct. There is no evidence of hydrocephalus. ORBITS: The visualized portion of the orbits demonstrate no acute abnormality. SINUSES: The visualized paranasal sinuses and mastoid air cells demonstrate no acute abnormality. SOFT TISSUES/SKULL: No acute abnormality of the visualized skull or soft tissues. IMPRESSION: No acute intracranial hemorrhage. Small chronic appearing insult in the right posterior temporal-occipital lobe. Chronic appearing small insult in the right thalamus. Interpreted by: Ar Prieto Preliminary Report By: Ar Prieto Electronically signed By Ar Prieto Dictated Date: 11/12/2023 5:10:39 PM Prelim Date: 11/12/2023 5:13:12 PM Sign Date: 11/12/2023 5:13:12 PM Ordering Provider: MARSHALL Peoples [facility] ([place]) LABORATORYOrdered By: SYSTEM SYSTEM on 11-12-2023 CK [Catalytic activity/Vol] 18 U/L Normal 7 - 185 U/L ADM HbA1c (Bld) [Mass fraction] 11.2 % High 4.0 - 6.0 % Auto Chem SS Magnesium [Mass/Vol] 1.6 mg/dL Normal 1.6 - 2 .4 mg/dL ADM SS Phosphate [Mass/Vol] 3.9 mg/dL Normal 2.4 - 5 .1 mg/dL ADM Comment on above: Interpretive Data: * *Note - New Reference Range in effect 20 Troponin I.cardiac DL <= 0.01 ng/mL [Mass/Vol] 3 ng/L Normal 0 - 54 ng/L ADM Comment on above: Interpretive Data: High Sensitive Troponin I Reference Ranges: Female: 0-34 ng/L Male: 0-54 ng/L Testing performed on [employer] IM analyzer using direct chemiluminescent technology. Troponin I.cardiac DL <= 0.01 ng/mL [Mass/Vol] ng/L Normal 0 - 54 ng/L ADM Comment on above: Interpretive Data: High Sensitive Troponin I Reference Ranges: Female: 0-34 ng/L Male: 0-54 ng/L Testing performed on [employer] IM analyzer using direct chemiluminescent technology. Lipase [Catalytic activity/Vol] 25 U/L Normal 12 - 53 U/L AH ADM SS Comment on above: Interpretive Data: * *Note - New Reference Range in effect 20 Monocyte distribution width Auto (Bld) [Entitic vol] 22.82 1 High 0.00 - 20.00 Workflow SS Comment on above: Result Comment: For adults in ED, MDW>20.0 may be associated with a higher risk of sepsis during the first 12hrs of hospital admission LABORATORYOrdered By: Annalise López on 11-12-2023 CK.MB [Mass/Vol] Not performed Invalid Interpretation Code 0.00 - 5.00 Chemistry S Comment on above: Result Comment: CKMB result not performed when CPK < 75 Interpretive Data: * *Note - New Reference Range in effect 20 Free T4 index Calc [Mass/Vol] Not Valid Invalid Interpretation Code 0.0 - 4.5 Chemistry S Comment on above: Result Comment: CPK <185 invalidates relative index LABORATORYOrdered By: Samantha Schumacher on 11-12-2023 Appearance (U) Clear (11/12/23 3:29 PM) Normal Clear AH Auto Urine SS aPTT Coag (Bld) [Time] 36.2 s High 25.0 - 35.0 seconds [employer] SS Comment on above: Interpretive Data: F or Heparin anticoagulation therapy, the recommended therapeutic range is: 54-77 seconds (APTT Correlation with Anti-Xa therapeutic range of 0.3-0.7 units/ml). PLEASE REFERENCE THE PHARMACY PROTOCOL FOR DOSING. Bilirubin Ql (U) Negative (11/12/23 3:29 PM) Normal Neg-Trace AH Auto Urine SS Color (U) Yellow (11/12/23 3:29 PM) Normal AH Auto Urine SS Glucose Test strip (U) [Mass/Vol] Negative Normal Negative AH Auto Urine SS Hemoglobin Auto test strip (U) [Mass/Vol] Negative (11/12/23 3:29 PM) Normal Neg-Trace AH Auto Urine SS Heparin dose (APTT) None Normal AH Coagulation S Ketones Ql (U) Negative Normal Neg-Trace AH Auto Ur ine SS UA Leuk Est Negative (11/12/23 3:29 PM) Normal Negative AH Auto Urine SS UA Nitrite Negative (11/12/23 3:29 PM) Normal Negative AH Auto Urine SS UA pH 7.0 (11/12/23 3:29 PM) Normal 5.0 - 8.0 AH Auto Urine SS UA Protein Negative Normal Negative AH Auto Urine SS UA RBC Rare /HPF Normal 0-2 AH Auto Urine SS UA Spec Grav 1.015 (11/12/23 3:29 PM) Normal 1.006-1.029 AH Auto Urine SS UA Specimen Type Clean Catch (11/12/23 3:29 PM) Normal AH Auto Urine SS UA Squam Epithelial Negative Normal 0-20 AH Au to Urine SS UA Urobilinogen 2.0 E.U./dL Invalid Interpretation Code 0.2-1.0 AH Auto Urine SS WBC LM.HPF (Urine sed) [#/Area] Rare /HPF Normal 0-5 AH Auto Urine SS LIPon 11-12-2023 Lipase Level 25 U/L Normal 12-53 [facility] ([place]) Comment on above: Result Comment: No te - New Reference Range in effect 20 Performed By: #### C MP, DANILO, W, ANEU, LIP, GFR, PRO, CBC ####[place] [id number] [address] [place] [address] PROon 11-12-2023 INR Coag (PPP) [Relative time] 1.3 {INR} Normal [facility] ([place]) Comment on above: Result Comment: The [employer] (CHEST, 1992, [id number]) recommended therapeutic range for oral anticoagulant therapy is: LOW RISK: Prophylaxis of venous thrombosis INR: 2.0-3.0 Treatment of pulmonary embolism 2.0-3.0 Prevention of systemic embolism 2.0-3.0 HIGH RISK: Mechanical prosthetic valves 2.5-3.5 Performed By: #### T ROP #### [facility] [address] [place] [id number] PT Coag (PPP) [Time] 15.0 s High 9.0-14.4 [facility] ([place]) Comment on above: Result Comment: Effe ctive 01/08/08, Protime results may be affected by some antibiotics (i.e. Ciprofloxacin, Azithromycin, Bactrim) which may potentiate the action of oral anticoagulants, with further increases in Protime/INR. Performed By: #### T SHIRA #### [address] [address] TROPHSon 11-12-2023 High Sensitivity Troponin I <3 Normal 0-54 [facility] ([place]) Comment on above: Result Comment: High Sensitive Troponin I Reference Ranges: Female: 0-34 ng/L Male: 0-54 ng/L Testing performed on [employer] IM analyzer using direct chemiluminescent technology. Performed By: #### T SHIRA ####[place] [address] High Sensitivity Troponin I <3 Normal 0-54 [facility] ([place]) Comment on above: Result Comment: High Sensitive Troponin I Reference Ranges: Female: 0-34 ng/L Male: 0-54 ng/L Testing performed on [employer] IM analyzer using direct chemiluminescent technology. Performed By: #### T SHIRA #### [place] [address] UAon 11-12-2023 Color (U) Yellow Normal [facility] ([place]) Comment on above: Performed By: #### U A, UAMIC ####[address] [address] Glucose (U) [Mass/Vol] Negative Normal Negative [facility] ([place]) Comment on above: Performed By: #### U A, UAMIC ####[address] [address] Ketones Ql (U) Negative Normal Neg-Trace [facility] ([place]) Comment on above: Performed By: #### U A, UAMIC ####[address] [address] UA Appear Clear Normal Clear [facility] ([place] Comment on above: Performed By: #### U A, UAMIC ####[address] [address] UA Blood Negative Normal Neg-Trace [facility] ([place]) Comment on above: Performed By: #### U A, UAMIC ####[address] [address] UA Leuk Est Negative Normal Negative [facility] ([place]) Comment on above: Performed By: #### U A, UAMIC ####[place] [address] UA Nitrite Negative Normal Negative [facility] ([place] Comment on above: Performed By: #### U A, UAMIC ####[place] [address] UA pH 7.0 Normal 5.0 - 8.0 [facility] ([place] Comment on above: Performed By: #### U A, UAMIC ####[place] [address] UA Protein Negative Normal Negative [facility] ([place]) Comment on above: Performed By: #### U A, UAMIC ####[place] [address] UA Spec Grav 1.015 Normal 1.006-1.029 [facility] ([place]) Comment on above: Performed By: #### U A, UAMIC ####[place] [address] UA Specimen Type Clean Catch Normal [facility] ([place] Comment on above: Performed By: #### U A, UAMIC ####[place] [address] UA Urobilinogen 2.0 E.U./dL Abnormal 0.2-1.0 [facility] ([place]) Comment on above: Performed By: #### U A, UAMIC ####[place] [address] Urobilinogen (U) [Mass/Vol] Negative Normal Neg-Trace [facility] ([place]) Comment on above: Performed By: #### U A, UAMIC ####[place] [address] UAMICon 11-12-2023 UA RBC Rare Normal 0-2 [facility] ([place]) Comment on above: Performed By: #### U A, UAMIC ####[place] [address] UA Squam Epithelial Negative Normal 0-20 [facility] ([place]) Comment on above: Performed By: #### U A, UAMIC ####[facility] [place] [id number] UA WBC Rare Normal 0-5 [facility] ([place] Comment on above: Performed By: #### U A, UAMIC ####[facility] [place] [id number] XR CHEST 1 VIEWon 11-12-2023 XR CHEST 1 VIEW ORIGINAL EXAMINATION: ONE XRAY VIEW OF THE CHEST 11/12/2023 2:28 pm COMPARISON: None. HISTORY: ORDERING SYSTEM PROVIDED HISTORY: Reason for Exam: cp FINDINGS: The heart is normal in size and there is no vascular congestion present. A shallow inspiration is present with some basilar vascular crowding. No infiltrate or pleural fluid is otherwise evident. No acute osseous finding. IMPRESSION: Hypoventilatory changes, no other acute finding. Interpreted by: Mireya Marley MD Preliminary Report By: Mireya Marley MD Electronically signed By Mireya Marley MD Dictated Date: 11/12/2023 2:34:30 PM Prelim Date: 11/12/2023 2:34:55 PM Sign Date: 11/12/2023 2:34:55 PM Ordering Provider: MARSHALL Peoples [facility] ([place]) Absolute lymphocyte countOrd ered By: Mago Elliott on 05-04-2023 Lymphocytes Auto (Unsp spec) [#/Vol] 3.01 10*3/uL 0.83-4.51 [facility] Basophil percentageOrdered B y: Mago Elliott on 05-04-2023 Basophils/100 WBC (Bld) 1.1 % 0-1 [facility] Bilirubin [Mass/Vol] 0.30 mg/dL 0.20-1.00 [facility] Comment on above: For patients on eltr ombopag therapy, use of Dimension [place] TBIL is not recommended. Chloride [Moles/Vol] 107 mmol/L 98-107 [facility] Cholesterol [Mass/Vol] 143 mg/dL <200 [facility] Comment on above: <200 mg/dL Desirable 200-240 mg/dL Borderline >240 mg/dL High Risk Eosinophils/100 WBC (Bld) 2.5 % 0-5 [facility] Glucose [Mass/Vol] 165 mg/dL 74-106 [facility] Comment on above: Fasting Glucose resu lt greater than or equal to 126 mg/dL suggests DIABETES MELLITUS per A.D.A. criteria. Neutrophils (Bld) [#/Vol] 5.3 10*3/uL 2.0-7.7 [facility] Neutrophils/100 WBC (Bld) 56.7 % 47-70 [facility] Potassium [Moles/Vol] 3.9 mmol/L 3.5-5.1 [facility] Protein [Mass/Vol] 7.9 g/dL 6.4-8.2 [facility] Sodium [Moles/Vol] 139 mmol/L 136-145 [facility] Triglyceride [Mass/Vol] 156 mg/dL <199 [facility] Comment on above: The drugs N-Acetylcy steine and Metamizole may falsely depress this assay.Serum Triglycerides Reference Interval Normal <150 mg/dL Borderline high 150 - 199 mg/dL High 200 - 499 mg/dL Very High > or = 500 mg/dL WBC (Bld) [#/Vol] 9.4 10*3/uL 4.4-11.0 [facility] Blood erythrocytes count (nu mber/volume)Ordered By: Mago Elliott on 05-04-2023 RBC (Bld) [#/Vol] 5.31 10*6/uL 4.6-6.2 [facility] Blood hemoglobin measurement (mass/volume)Ordered By: Mago Elliott on 05-04-2023 Hemoglobin (Bld) [Mass/Vol] 16.2 g/dL 13.0-16.5 [facility] Blood lymphocytes/100 leukoc ytesOrdered By: Mago Elliott on 05-04-2023 Lymphocytes/100 WBC (Bld) 32.0 % 19-41 [facility] Blood monocytes/100 leukocyt esOrdered By: Mago Elliott on 05-04-2023 Monocytes/100 WBC (Bld) 7.4 % 0-10 [facility] Blood platelet mean volumeOr dered By: Mago Elliott on 05-04-2023 Platelet mean volume (Bld) [Entitic vol] 11.4 fL 6.2-12.0 [facility] Determination of erythrocyte mean corpuscular volume (MCV)Ordered By: Mago Elliott on 05-04-2023 MCV (RBC) [Entitic vol] 93.4 fL 80-94 [facility] Hematocrit Auto (Bld) [Volum e fraction][facility]: [facility] on 05-04-2023 Hematocrit (Bld) [Volume fraction] 49.6 % 40-54 [facility] Laboratory - Chemistry and C hemistry - challengeOrdered By: [facility] on 05-04-2023 ALP [Catalytic activity/Vol] 108 U/L 45-117 [facility] ALT [Catalytic activity/Vol] 30 U/L 16-61 [facility] CO2 [Moles/Vol] 21.0 mmol/L 21.0-32.0 [facility] Globulin (S) [Mass/Vol] 4.0 g/dL 2.2-4.2 [facility] Urea nitrogen/Creatinine [Mass ratio] 15.6 mg/mg 10-20 [facility] Laboratory - Hematology and Cell countsOrdered By: [facility] on 05-04-2023 Erythrocyte distribution width (RBC) [Entitic vol] 43.5 fL 35.1-43.9 [facility] Erythrocyte distribution width (RBC) [Ratio] 12.6 % 11.6-14.6 [facility] Immature granulocytes/100 WBC (Bld) 0.300 % 0.0-0.9 [facility] Comment on above: IG% - Immature Granu locytes (promyelocytes, myelocytes and metamyelocytes) > 1% indicates that a LEFT SHIFT is Present. MCH (RBC) [Entitic mass] 30.5 pg 27.0-32.0 [facility] Nucleated RBC/100 WBC (Bld) [Ratio] 0 % 0-5 [facility] MCHC Auto (RBC) [Mass/Vol]Or dered By: [facility] on 05-04-2023 MCHC (RBC) [Mass/Vol] 32.7 g/dL 32-36 [facility] No Panel InformationOrdered By: [facility] Elliott on 05-04-2023 Estimated GFR (MDRD) Amer 119 mL/min >60 [facility] Comment on above: GFR Calc Estimated GFR (MDRD) Non-Af Amer 99 mL/min >60 [facility] Comment on above: Non- GFR Calc Thyroid Stimulating Hormone (TSH) 1.76 uIU/mL 0.358-3.74 [facility] Platelets bldOrdered By: Zenobia molina [place] on 05-04-2023 Platelets (Bld) [#/Vol] 261 10*3/uL 150-450 [facility] Serum or plasma albumin wing urement (mass/volume)Ordered By: Mago Elliott on 05-04-2023 Albumin [Mass/Vol] 3.9 g/dL 3.2-5.0 [facility] Serum or plasma albumin/glob ulin mass ratioOrdered By: Mago Elliott on 05-04-2023 Albumin/Globulin [Mass ratio] 1.0 {ratio} 0.9-2.4 [facility] Serum or plasma calcium wing urement (mass/volume)Ordered By: Mago Elliott on 05-04-2023 Calcium [Mass/Vol] 9.3 mg/dL 8.5-10.1 [facility] Serum or plasma cholesterol in HDL measurement (mass/volume)Ordered By: Mago Elliott on 05-04-2023 Cholesterol in HDL [Mass/Vol] 65 mg/dL >40 [facility] Comment on above: The drugs N-Acetylcy steine and Metamizole may falsely depress this assay. Reference Range HDL <40 mg/dL Low HDL Cholesterol HDL >or= 60 mg/dL High HDL Cholesterol Serum or plasma cholesterol in VLDL measurement (mass/volume)Ordered By: Mago Elliott on 05-04-2023 Cholesterol in VLDL [Mass/Vol] 31 mg/dL 5-40 [facility] Serum or plasma creatinine m easurement (mass/volume)Ordered By: Mago Elliott on 05-04-2023 Creatinine [Mass/Vol] 0.83 mg/dL 0.70-1.30 [facility] Comment on above: The validity of the calculated GFR & GFRAA in patients over 70 years has not been determined. Clinical correlation is essential. Serum or plasma low density lipoprotein (LDL) cholesterol measurement (mass/volume)Ordered By: Mago Elliott on 05-04-2023 Cholesterol in LDL [Mass/Vol] 47 mg/dL 0-130 [facility] Serum or plasma urea nitroge n measurement (mass/volume)Ordered By: Mago Elliott on 05-04-2023 Urea nitrogen [Mass/Vol] 13 mg/dL 7-18 [facility] Thin prep Papanicolaou smear with manual screeningOrdered By: Mago Elliott on 05-04-2023 Thin prep Papanicolaou smear with manual screening 11 U/L 15-37 [facility] Thin prep Papanicolaou smear with manual screening 11 5-15 [facility] Whole blood hemoglobin A1c/t otal hemoglobin ratio (mass fraction)Ordered By: Mago Elliott on 05-04-2023 HbA1c (Bld) [Mass fraction] 10.9 % 3.8-5.6 [facility] Comment on above: Normal < 5.7 % Predi abetic 5.7 - 6.4 % Diabetic >or= 6.5 % Please note range changes. Glucose Glucometer (BldC) [M ass/Vol]Ordered By: Ramos Ramos on 01-05-2023 Glucose [Mass/Vol] 165 mg/dL 74-106 [facility] Comment on above: MANAGEMENT OF PATIEN T CARE PER NURSING PROTOCOL Laboratory - Chemistry and C hemistry - challengeOrdered By: Ramos Ramos on 01-05-2023 CK [Catalytic activity/Vol] 813 U/L 39-308 [facility] No Panel InformationOrdered By: Ramos Ramos on 01-05-2023 Ethyl Alcohol Level 239.0 mg/dL [facility] Comment on above: The serum:whole bloo d ethanol ratio is approximately 1.14and varies slightly with hematocrit. Medical Alcohol reference interval and critical value innon-tolerant individuals; 50 - 100 Impairment 100 Intoxication 100 - 250 Severe Poisoning 250 - 400 Deep/possible fatal coma Absolute lymphocyte countOrd ered By: Ramos Ramos on 01-04-2023 Lymphocytes Auto (Unsp spec) [#/Vol] 2.75 10*3/uL 0.83-4.51 [facility] Basophil percentageOrdered B y: Ramos Ramos on 01-04-2023 Basophils/100 WBC (Bld) 1.1 % 0-1 [facility] Bilirubin [Mass/Vol] 0.40 mg/dL 0.20-1.00 [facility] Comment on above: For patients on eltr ombopag therapy, use of Dimension [place] TBIL is not recommended. Chloride [Moles/Vol] 107 mmol/L 98-107 [facility] Eosinophils/100 WBC (Bld) 1.9 % 0-5 [facility] Glucose [Mass/Vol] 144 mg/dL 74-106 [facility] Comment on above: Fasting Glucose resu lt greater than or equal to 126 mg/dL suggests DIABETES MELLITUS per A.D.A. criteria. Neutrophils (Bld) [#/Vol] 3.9 10*3/uL 2.0-7.7 [facility] Neutrophils/100 WBC (Bld) 53.0 % 47-70 [facility] Potassium [Moles/Vol] 3.7 mmol/L 3.5-5.1 [facility] Protein [Mass/Vol] 7.5 g/dL 6.4-8.2 [facility] Sodium [Moles/Vol] 140 mmol/L 136-145 [facility] WBC (Bld) [#/Vol] 7.4 10*3/uL 4.4-11.0 [facility] Blood erythrocytes count (nu mber/volume)Ordered By: Ramos Ramos on 01-04-2023 RBC (Bld) [#/Vol] 5.35 10*6/uL 4.6-6.2 [facility] Blood hemoglobin measurement (mass/volume)Ordered By: Ramos Ramos on 01-04-2023 Hemoglobin (Bld) [Mass/Vol] 16.5 g/dL 13.0-16.5 [facility] Blood lymphocytes/100 leukoc ytesOrdered By: Ramos Ramos on 01-04-2023 Lymphocytes/100 WBC (Bld) 37.2 % 19-41 [facility] Blood monocytes/100 leukocyt esOrdered By: Ramos Ramos on 01-04-2023 Monocytes/100 WBC (Bld) 6.4 % 0-10 [facility] Blood platelet mean volumeOr dered By: Ramos Ramos on 01-04-2023 Platelet mean volume (Bld) [Entitic vol] 9.9 fL 6.2-12.0 [facility] Determination of erythrocyte mean corpuscular volume (MCV)Ordered By: Ramos Ramos on 01-04-2023 MCV (RBC) [Entitic vol] 91.0 fL 80-94 [facility] Hematocrit Auto (Bld) [Volum e fraction]Ordered By: Ramos Ramos on 01-04-2023 Hematocrit (Bld) [Volume fraction] 48.7 % 40-54 [facility] Laboratory - Chemistry and C hemistry - challengeOrdered By: Ramos Ramos on 01-04-2023 ALP [Catalytic activity/Vol] 127 U/L 45-117 [facility] ALT [Catalytic activity/Vol] 26 U/L 16-61 [facility] CO2 [Moles/Vol] 25.0 mmol/L 21.0-32.0 [facility] Globulin (S) [Mass/Vol] 3.6 g/dL 2.2-4.2 [facility] Urea nitrogen/Creatinine [Mass ratio] 7.4 mg/mg 10-20 [facility] Laboratory - Hematology and Cell countsOrdered By: Ramos Ramos on 01-04-2023 Erythrocyte distribution width (RBC) [Entitic vol] 40.0 fL 35.1-43.9 [facility] Erythrocyte distribution width (RBC) [Ratio] 12.0 % 11.6-14.6 [facility] Immature granulocytes/100 WBC (Bld) 0.400 % 0.0-0.9 [facility] Comment on above: IG% - Immature Granu locytes (promyelocytes, myelocytes and metamyelocytes) > 1% indicates that a LEFT SHIFT is Present. MCH (RBC) [Entitic mass] 30.8 pg 27.0-32.0 [facility] Nucleated RBC/100 WBC (Bld) [Ratio] 0 % 0-5 [facility] MCHC Auto (RBC) [Mass/Vol]Or dered By: Ramos Ramos on 01-04-2023 MCHC (RBC) [Mass/Vol] 33.9 g/dL 32-36 [facility] No Panel InformationOrdered By: Ramos Ramos on 01-04-2023 Estimated Creatinine Clearance Calc 82.59 ml/min [facility] Estimated GFR (MDRD) Amer 89 mL/min >60 [facility] Comment on above: GFR Calc Estimated GFR (MDRD) Non-Af Amer 73 mL/min >60 [facility] Comment on above: Non- GFR Calc Platelets bldOrdered By: Miguel Ramos on 01-04-2023 Platelets (Bld) [#/Vol] 254 10*3/uL 150-450 [facility] Serum or plasma albumin wing urement (mass/volume)Ordered By: Ramos Ramos on 01-04-2023 Albumin [Mass/Vol] 3.9 g/dL 3.2-5.0 [facility] Serum or plasma albumin/glob ulin mass ratioOrdered By: Ramos Ramos on 01-04-2023 Albumin/Globulin [Mass ratio] 1.1 {ratio} 0.9-2.4 [facility] Serum or plasma calcium wing urement (mass/volume)Ordered By: Ramos Ramos on 01-04-2023 Calcium [Mass/Vol] 9.0 mg/dL 8.5-10.1 [facility] Serum or plasma creatinine m easurement (mass/volume)Ordered By: Ramos Ramos on 01-04-2023 Creatinine [Mass/Vol] 1.08 mg/dL 0.70-1.30 [facility] Comment on above: The validity of the calculated GFR & GFRAA in patients over 70 years has not been determined. Clinical correlation is essential. Serum or plasma urea nitroge n measurement (mass/volume)Ordered By: Ramos Ramos on 01-04-2023 Urea nitrogen [Mass/Vol] 8 mg/dL 7-18 [facility] Thin prep Papanicolaou smear with manual screeningOrdered By: Ramos Ramos on 01-04-2023 Thin prep Papanicolaou smear with manual screening 17 U/L 15-37 [facility] Thin prep Papanicolaou smear with manual screening 8 5-15 [facility] Glucose Glucometer (BldC) [M ass/Vol]Ordered By: Micahel Ricardo on 11-14-2022 Glucose [Mass/Vol] 289 mg/dL 74-106 [facility] Comment on above: MANAGEMENT OF PATIEN T CARE PER NURSING PROTOCOL Glucose Glucometer (BldC) [M ass/Vol]Ordered By: Leonardo Carr on 11-14-2022 Glucose [Mass/Vol] 107 mg/dL 74-106 [facility] Comment on above: MANAGEMENT OF PATIEN T CARE PER NURSING PROTOCOL INR in Blood by Coagulation assayOrdered By: Rand Amin on 11-14-2022 INR Coag (Bld) [Relative time] 0.9 {INR} [facility] Laboratory - CoagulationOrde red By: Rand Amin on 11-14-2022 PT Coag (PPP) [Time] 11.7 s 11.7-14.9 [facility] Basophil percentageOrdered B y: Rand Amin on 11-12-2022 Chloride [Moles/Vol] 97 mmol/L 98-107 [facility] Glucose [Mass/Vol] 681 mg/dL 74-106 [facility] Comment on above: Critical Result(s) C alled at: 01:17:48 11/12/2022 by: KARLEY STRONG RN MS3. Results read back by same.Glucose result greater than or equal to 200 mg/dLsuggests DIABETES MELLITUS per A.D.A. criteria. Potassium [Moles/Vol] 4.2 mmol/L 3.5-5.1 [facility] Sodium [Moles/Vol] 130 mmol/L 136-145 [facility] Laboratory - Chemistry and C hemistry - challengeOrdered By: Rand Amin on 11-12-2022 CO2 [Moles/Vol] 27.0 mmol/L 21.0-32.0 [facility] Urea nitrogen/Creatinine [Mass ratio] 13.8 mg/mg - [facility] No Panel InformationOrdered By: Rand Amin on 11-12-2022 Estimated Creatinine Clearance Calc 73.66 ml/min [facility] Estimated GFR (MDRD) Amer 82 mL/min >60 [facility] Comment on above: GFR Calc Estimated GFR (MDRD) Non-Af Amer 67 mL/min >60 [facility] Comment on above: Non- GFR Calc Serum or plasma calcium wing urement (mass/volume)Ordered By: Rand Amin on 11-12-2022 Calcium [Mass/Vol] 8.9 mg/dL 8.5-10.1 [facility] Serum or plasma creatinine m easurement (mass/volume)Ordered By: Rand Amin on 11-12-2022 Creatinine [Mass/Vol] 1.16 mg/dL 0.70-1.30 [facility] Comment on above: The validity of the calculated GFR & GFRAA in patients over 70 years has not been determined. Clinical correlation is essential. Serum or plasma urea nitroge n measurement (mass/volume)Ordered By: Rand Amin on 11-12-2022 Urea nitrogen [Mass/Vol] 16 mg/dL 7-18 [facility] Thin prep Papanicolaou smear with manual screeningOrdered By: Rand Brennan on 11-12-2022 Thin prep Papanicolaou smear with manual screening 6 5-15 [facility] Thin prep Papanicolaou smear with manual screening 306 mOsm/KG 280-301 [facility] Absolute lymphocyte countOrd ered By: Rand Amin on 11-09-2022 Lymphocytes Auto (Unsp spec) [#/Vol] 1.76 10*3/uL 0.83-4.51 [facility] Basophil percentageOrdered B y: Rand Amin on 11-09-2022 Basophils/100 WBC (Bld) 0.9 % 0-1 [facility] Bilirubin [Mass/Vol] 0.60 mg/dL 0.20-1.00 [facility] Comment on above: For patients on eltr ombopag therapy, use of Dimension [place] TBIL is not recommended. Eosinophils/100 WBC (Bld) 2.8 % 0-5 [facility] Neutrophils (Bld) [#/Vol] 3.2 10*3/uL 2.0-7.7 [facility] Neutrophils/100 WBC (Bld) 57.3 % 47-70 [facility] Protein [Mass/Vol] 7.0 g/dL 6.4-8.2 [facility] WBC (Bld) [#/Vol] 5.7 10*3/uL 4.4-11.0 [facility] Blood erythrocytes count (nu mber/volume)Ordered By: Rand Amin on 11-09-2022 RBC (Bld) [#/Vol] 4.95 10*6/uL 4.6-6.2 [facility] Blood hemoglobin measurement (mass/volume)Ordered By: Rand Amin on 11-09-2022 Hemoglobin (Bld) [Mass/Vol] 15.7 g/dL 13.0-16.5 [facility] Blood lymphocytes/100 leukoc ytesOrdered By: Rand Brennan on 11-09-2022 Lymphocytes/100 WBC (Bld) 31.2 % 19-41 [facility] Blood monocytes/100 leukocyt esOrdered By: Rand Brennan on 11-09-2022 Monocytes/100 WBC (Bld) 7.6 % 0-10 [facility] Blood platelet mean volumeOr dered By: Rand Amin on 11-09-2022 Platelet mean volume (Bld) [Entitic vol] 10.8 fL 6.2-12.0 [facility] Determination of erythrocyte mean corpuscular volume (MCV)Ordered By: [facility] Brennan on 11-09-2022 MCV (RBC) [Entitic vol] 92.3 fL 80-94 [facility] Hematocrit Auto (Bld) [Volum e fraction]Ordered By: Rand Brennan on 11-09-2022 Hematocrit (Bld) [Volume fraction] 45.7 % 40-54 [facility] Laboratory - Chemistry and C hemistry - challengeOrdered By: [facility] Brennan on 11-09-2022 ALP [Catalytic activity/Vol] 111 U/L 45-117 [facility] ALT [Catalytic activity/Vol] 30 U/L 16-61 [facility] Globulin (S) [Mass/Vol] 3.6 g/dL 2.2-4.2 [facility] Laboratory - Hematology and Cell countsOrdered By: [facility] Brennan 11-09-2022 Erythrocyte distribution width (RBC) [Entitic vol] 44.1 fL 35.1-43.9 [facility] Erythrocyte distribution width (RBC) [Ratio] 13.0 % 11.6-14.6 [facility] Immature granulocytes/100 WBC (Bld) 0.200 % 0.0-0.9 [facility] Comment on above: IG% - Immature Granu locytes (promyelocytes, myelocytes and metamyelocytes) > 1% indicates that a LEFT SHIFT is Present. MCH (RBC) [Entitic mass] 31.7 pg 27.0-32.0 [facility] Nucleated RBC/100 WBC (Bld) [Ratio] 0 % 0-5 [facility] MCHC Auto (RBC) [Mass/Vol]Or dered By: Rand Amin on 11-09-2022 MCHC (RBC) [Mass/Vol] 34.4 g/dL 32-36 [facility] Platelets bldOrdered By: Eben Amin on 11-09-2022 Platelets (Bld) [#/Vol] 188 10*3/uL 150-450 [facility] Serum or plasma albumin wing urement (mass/volume)Ordered By: Rand Brennan on 11-09-2022 Albumin [Mass/Vol] 3.4 g/dL 3.2-5.0 [facility] Serum or plasma albumin/glob ulin mass ratioOrdered By: Rand Brennan on 11-09-2022 Albumin/Globulin [Mass ratio] 0.9 {ratio} 0.9-2.4 [facility] Thin prep Papanicolaou smear with manual screeningOrdered By: Rand Brennan on 11-09-2022 Thin prep Papanicolaou smear with manual screening 21 U/L 15-37 [facility] Whole blood hemoglobin A1c/t otal hemoglobin ratio (mass fraction)Ordered By: Rand Brennan on 11-09-2022 HbA1c (Bld) [Mass fraction] 10.8 % 3.8-5.6 [facility] Comment on above: Normal < 5.7 % Predi abetic 5.7 - 6.4 % Diabetic >or= 6.5 % Please note range changes. ALCOHOL-BLOOD MEDICALon 10-24 Ethanol [Mass/Vol] 194 mg/dL High 0 - 50 [facility] Comment on above: Performed By: #### [id number] ####[facility],[address] [place] [id number] Basophil percentageOrdered B y: Rand Brennan on 11-08-2022 Basophil percentage 2.9 mg/dL 2.5-4.9 [facility] CBC + DIFFon 11-08-2022 Baso # 0.10 x10EE3/UL Normal 0.00 - 0.10 [facility] Comment on above: Performed By: #### 2 [id number] #### [facility],[address] [place] [address] Basophils/100 WBC (Bld) 0.9 % Normal 0.0 - 2.0 [facility] Comment on above: Performed By: #### 2 [id number] #### [place] [address] CBC + DIFF Normal [facility] Comment on above: Result Comment: CBC- COMPLETE BLOOD COUNT Performed By: #### [id number] #### [facility],[address] [place] [address] EO # 0.10 x10EE3/UL Normal 0.00 - 0.50 [facility] Comment on above: Performed By: #### 2 [id number] #### [facility],[address] [place] [address] Eosinophils/100 WBC (Bld) 0.6 % Normal 0.0 - 7.0 [facility] Comment on above: Performed By: #### 2 [id number] #### [place] [address] Erythrocyte distribution width (RBC) [Ratio] 14.4 % Normal 12.0 - 15.6 [facility] Comment on above: Performed By: #### 2 [id number] #### [place] [address] Hematocrit (Bld) [Volume fraction] 44.1 % Normal 40.0 - 52.0 [facility] Comment on above: Performed By: #### 2 [id number] #### [facility],[address] [place] [address] Hemoglobin (Bld) [Mass/Vol] 14.7 g/dL Normal 13.0 - 17.5 [facility] Comment on above: Performed By: #### 2 [id number] #### [facility],[address] [place] [address] Lymph # 1.50 x10EE3/UL Normal 0.80 - 2.80 [facility] Comment on above: Performed By: #### 2 [id number] #### [place] [address] Lymphocytes/100 WBC (Bld) 12.7 % Low 20.0 - 45.0 [facility] Comment on above: Performed By: #### 2 [id number] #### [facility],[address] [place] [address] MANUAL DIFF N/A Normal [facility] Comment on above: Performed By: #### 2 04522 #### [place] [address] MCH (RBC) [Entitic mass] 31 pg Normal 27 - 33 [facility] Comment on above: Performed By: #### 2 57320 #### [place] [address] MCHC 33 X10 3 Normal 32 - 36 [facility] Comment on above: Performed By: #### 2 20460 #### [place] [address] MCV (RBC) [Entitic vol] 93 fL Normal 81 - 98 [facility] Comment on above: Performed By: #### 2 40766 #### [place] [address] Jenkins # 0.80 x10EE3/UL Normal 0.20 - 1.00 [facility] Comment on above: Performed By: #### 2 19974 #### [place] [address] MONOS % 6.8 % Normal 0.0 - 10.0 [facility] Comment on above: Performed By: #### 2 01425 #### [place] [address] Morphology Guero (Bld) [Interp] N/A Normal [facility] Comment on above: Performed By: #### 2 10523 #### [place] [address] Neut # 9.40 x10EE3/UL High 1.50 - 7.10 [facility] Comment on above: Performed By: #### 2 94700 #### [facility],[address] [place] [address] 66271 Neutrophils/100 WBC (Bld) 79.0 % High 46.0 - 76.0 [facility] Comment on above: Performed By: #### 2 46885 #### [facility],[address] [place] [address] 64882 PLATELET 281 x10EE3/UL Normal 150 - 450 [facility] Comment on above: Performed By: #### 2 43898 #### [facility],[address] [place] [address] 89059 Platelet mean volume (Bld) [Entitic vol] 8.8 fL Normal 6.4 - 10.5 [facility] Comment on above: Result Comment: AUTO MATED DIFFERENTIAL Performed By: #### 2 38659 #### [facility],[address] [place] [address] 07400 RBC 4.74 x 10EE6/UL Normal 4.50 - 6.00 [facility] Comment on above: Performed By: #### 2 83403 #### [facility],[address] [place] [address] 23472 WBC 11.9 x 10EE3/UL High 4.5 - 10.8 [facility] Comment on above: Performed By: #### 2 99312 #### [facility],[address] [place] [address] 36273 CMP with eGFRon 11-08-2022 AGE 61 years Normal [facility] Comment on above: Performed By: #### 2 51378 #### [facility],[address] [place] [address] 01982 Albumin [Mass/Vol] 3.8 g/dL Normal 3.4 - 5.0 [facility] Comment on above: Performed By: #### 2 59299 #### [facility],[address] [place] [address] 90875 Albumin/Globulin [Mass ratio] 1.2 {ratio} Normal 0.9 - 1.6 [facility] Comment on above: Performed By: #### 2 03642 #### [facility],[address] [place] [address] 34989 ALK PHOS 125 U/L High 46 - 116 [facility] Comment on above: Performed By: #### 2 03907 #### [facility],[address] [place] [address] 49852 ALT [Catalytic activity/Vol] 29 U/L Normal 16 - 63 [facility] Comment on above: Performed By: #### 2 51305 #### [facility],[address] [place] [address] 32485 Anion gap [Moles/Vol] 21 mmol/L High 10 - 20 [facility] Comment on above: Performed By: #### 2 59644 #### [facility],[address] [place] [address] 09391 AST [Catalytic activity/Vol] 26 U/L Normal 15 - 37 [facility] Comment on above: Performed By: #### 2 25246 #### [facility],[address] [place] [address] 09932 B/C RATIO 11 ratio Normal 0 - 30 [facility] Comment on above: Performed By: #### 2 80386 #### [facility],[address] [place] [address] 66276 Bilirubin [Mass/Vol] 0.7 mg/dL Normal 0.2 - 1.0 [facility] Comment on above: Performed By: #### 2 99387 #### [facility],[address] [place] [address] 35050 Calcium [Mass/Vol] 8.8 mg/dL Normal 8.5 - 10.1 [facility] Comment on above: Performed By: #### 2 28075 #### [facility],[address] [place] [address] 76760 Chloride [Moles/Vol] 95 mmol/L Low 98 - 107 [facility] Comment on above: Performed By: #### 2 98564 #### [facility],[address] [place] [address] 88279 CMP with eGFR Normal [facility] Comment on above: Result Comment: COMP REHENSIVE METABOLIC PANEL Performed By: #### 2 63303 #### [facility],[address] [place] [address] 58408 CO2 [Moles/Vol] 21.8 mmol/L Normal 21.0 - 32.0 [facility] Comment on above: Performed By: #### 2 85244 #### [facility],[address] [place] [address] 35290 Creatinine [Mass/Vol] 1.25 mg/dL Normal 0.70 - 1.30 [facility] Comment on above: Performed By: #### 2 48732 #### [facility],[address] [place] [address] 27461 eGFR 58 ML/MINUTE Low 60 - 999 [facility] Comment on above: Performed By: #### 2 58178 #### [facility],[address] [place] [address] 05040 GFR/1.73 sq M.predicted among non-blacks MDRD (S/P/Bld) [Vol rate/Area] mL/min/{1.73_m2} Normal 60 - 999 [facility] Comment on above: Result Comment: ACCO RDING TO THE NATIONAL KIDNEY DISEASE EDUCATION PROGRAM(NKDE), A NORMAL eGFR IS A VALUE GREATER THAN OR EQUAL TO 60 ML/MIN/1.73 SQ METERS. CHRONIC KIDNEY DISEASE: <60mL/MIN/1.73 SQ METERS KIDNEY FAILURE: <15mL/MIN/1.73 SQ METERS THIS TEST SHOULD ONLY BE USED FOR PATIENTS 18 YEARS OF AGE AND OLDER. Performed By: #### 2 86607 #### [facility],[address] [place] [address] 84033 Globulin (S) [Mass/Vol] 3.2 g/dL Normal 1.5 - 3.8 [facility] Comment on above: Performed By: #### 2 60942 #### [facility],[address] [place] [address] 39645 Glucose [Mass/Vol] 420 mg/dL High 74 - 106 [facility] Comment on above: Performed By: #### 2 75734 #### [facility],[address] [place] [address] 02025 Potassium [Moles/Vol] 3.7 mmol/L Normal 3.5 - 5.1 [facility] Comment on above: Performed By: #### 2 50430 #### [facility],[address] [place] [address] 78628 Protein [Mass/Vol] 7.0 g/dL Normal 6.4 - 8.2 [facility] Comment on above: Performed By: #### 2 40938 #### [facility],[address] [place] [address] 85731 Sodium [Moles/Vol] 134 mmol/L Low 136 - 145 [facility] Comment on above: Performed By: #### 2 53151 #### [facility],[address] [place] [address] 85192 Urea nitrogen [Mass/Vol] 14 mg/dL Normal 7 - 18 [facility] Comment on above: Performed By: #### 2 87515 #### [facility],[address] [place] [address] 76139 CORONAVIRUS PCR - [facility] 11-08-2022 SARS-CoV-2 (COVID-19) RNA GIGI+probe Ql (Unsp spec) Negative Normal NORMAL: NEGATIVE [facility] Comment on above: Performed By: #### 2 91550 #### [facility],[address] [place] [address] 63214 SEND TO IC? YES Normal [facility] Comment on above: Result Comment: RESU LTS FAXED TO INFECTION CONTROL. SARS-CoV-2 THIS TEST IS BEING USED UNDER THE FDA EUA PROCEDURE. THIS ASSAY HAS BEEN VALIDATED IN THE [facility] FOR USE WITH NASOPHARYNGEAL SPECIMENS IN [facility]. INTERPRETIVE DATA LABORATORY TEST RESULTS SHOULD ALWAYS BE CONSIDERED IN THE CONTEXT OF CLINICAL OBSERVATIONS AND EPIDEMIOLOGICAL DATA IN MAKING FINAL DIAGNOSIS AND PATIENT MANAGEMENT DECISIONS. PATIENT MANAGEMENT SHOULD FOLLOW CURRENT CDC GUIDELINES. A POSITIVE TEST RESULT FOR COVID-19 INDICATES THAT RNA FROM SARS-CoV-2 WAS DETECTED, AND THE PATIENT IS INFECTED WITH THE VIRUS AND PRESUMED TO BE CONTAGIOUS. A NEGATIVE TEST RESULT FOR THIS TEST MEANS THAT SARS-CoV-2 RNA WAS NOT PRESENT IN THE SPECIMEN ABOVE THE LIMIT OF DETECTION. HOWEVER, A NEGATVIE RESULT DOES NOT RULE OUT COVID-19 AND SHOULD NOT BE USED THE SOLE BASIS FOR TREATMENT OR PATIENT MANAGEMENT DECISIONS. A NEGATIVE RESULT DOES NOT EXCLUDE THE POSSIBILITY OF COVID-19. WHEN DIAGNOSTIC TESTING IS NEGATIVE, THE POSSIBLILTY OF A FALSE NEGATIVE RESULT SHOULD BE CONSIDERED IN THE CONTEXT OF A PATIENT'S RECENT EXPOSURES AND THE PRESENCE OF CLINICAL SIGNS AND SYMPTOMS CONSISTENT WITH COVID-19. THE POSSIBILITY OF A FALSE NEGATIVE RESULT SHOULD ESPECIALLY BE CONSIDERED IF THE PATIENT'S RECENT EXPOSURES OR CLINICAL PRESENTATION INDICATE THAT COVID-19 IS LIKELY, AND DIAGNOSTIC TESTS FOR OTHER CAUSES OF ILLNESS (e.g., OTHER RESPIRATORY ILLNESS) ARE NEGATIVE. IF COVID-19 IS STILL SUSPECTED BASED ON EXPOSURE HISTORY TOGETHER WITH OTHER CLINICAL FINDINGS, RE-TESTED SHOULD BE CONSIDERED BY HEALTHCARE PROVIDERS IN CONSULTATION WITH PUBLIC HEALTH AUTHORITIES. Performed By: #### 2 66607 #### [facility],[address] [place] [address] CT BRAIN W/O CONTRASTon 10-24 CT BRAIN W/O CONTRAST [place] [address] Patient: KYLE MCDANIEL Phone#: : 1960 Age: 61 Gender: M Pt. Type: ER Account: [id number] Location: [facility] Ordering: DR. KATERYNA BRUNSON Exam Date: 11/08/2022/0:25 Family Phys: Charge Code: [id number] Physician: [place] Order #: [id number] Dose#: 52.30 PROCEDURE: CT BRAIN WITHOUT CONTRAST COMPARISON: [facility], CT, BRAIN W/O CON, 07/02/2021, 11:26. INDICATIONS: Trauma. TECHNIQUE: CT images were obtained without contrast material. All CT scans at this facility use dose modulation, iterative reconstruction, and/or weight based dosing when appropriate to reduce radiation dose to as low as reasonably achievable. IV CONTRAST: No IV contrast used,0ml TOTAL DOSE: 52.30 CTDIvol(mGy) FINDINGS: CEREBRUM: Age-appropriate atrophy is present, without visible acute hemorrhage or lesion. CEREBELLUM: No edema, hemorrhage, mass, acute infarction, or inappropriate atrophy. BRAINSTEM: No edema, hemorrhage, mass, acute infarction, or inappropriate atrophy. CSF SPACES: Ventricles, cisterns, and sulci are appropriate for age. No hydrocephalus, subarachnoid hemorrhage, or mass. SKULL: No mass or other significant visible lesion. SINUSES: Mucosal thickening is present in the ethmoid and left maxillary sinus. ORBITS: Limited views are unremarkable. OTHER: Negative. CONCLUSION: No acute disease. Dictated by: Nga Brown MD on 11/08/2022 at 10:22 Approved by: Nga Brown MD on 11/08/2022 at 10:24 Normal [facility] CT CERVICAL W/O CONTRASTon 0 11-08-2022 CT CERVICAL W/O CONTRAST [place] [address] Patient: KYLE MCDANIEL Phone#: : 1960 Age: 61 Gender: M Pt. Type: ER Account: [id number] Location: 052 Ordering: DR. KATERYNA BRUNSON Exam Date: 11/08/2022/0:25 Family Phys: Charge Code: [id number] Physician: [place] Order #: [id number] Dose#: 18.60 PROCEDURE: CT CERVICAL WITHOUT CONTRAST COMPARISON: [facility], CT, CERVICAL W/O CON, 07/02/2021, 11:26. INDICATIONS: Trauma. TECHNIQUE: Multi-planar CT images were created without intravenous contrast. All CT scans at this facility use dose modulation, iterative reconstruction, and/or weight-based dosing when appropriate to reduce radiation dose to as low as reasonably achievable. IV CONTRAST: No IV contrast used,0ml TOTAL DOSE: 18.60 CTDIvol(mGy) FINDINGS: CRANIOCERVICAL AREA: Normal foramen magnum with no Chiari malformation. PARASPINAL AREA: Normal with no visible mass. BONES: Multilevel degenerative changes present. There is straightening of the normal cervical lordosis. CERVICAL DISC LEVELS: C2-C3: Bony hypertrophy is present at the right articular facet with right foraminal narrowing. C3-C4: Disc space narrowing is present. Osteophytes are present with bilateral foraminal narrowing but greater on the left. C4-C5: Mild disc space narrowing is present. Endplate osteophytes are present. C5-C6: Disc space narrowing is present. Endplate osteophytes present with right foraminal narrowing. C6-C7: Disc space narrowing is present. Endplate osteophytes are present with right foraminal narrowing. C7-T1: No significant disc/facet abnormality, spinal stenosis, or foraminal stenosis. CONCLUSION: 1. There is straightening of the normal cervical lordosis. Severe degenerative changes are present. [address] [address] Patient: KYLE MCDANIEL Phone#: : 1960 Age: 61 Gender: M Pt. Type: ER Account: [id number] Location: [facility] Ordering: DR. KATERYNA BRUNSON Exam Date: 11/08/2022/0:25 Family Phys: Charge Code: [id number] Physician: [place] Order #: [id number] Dose#: 18.60 Dictated by: Nga Brown MD on 11/08/2022 at 10:24 Approved by: Nga Brown MD on 11/08/2022 at 10:34 Normal [facility] CT CHEST/ABD/PELVIS C-on CT CHEST[place]ABD/[place]IS [place] [address] Patient: KYLE MCDANIEL Phone#: : 1960 Age: 61 Gender: M Pt. Type: ER Account: [id number] Location: 010 Ordering: DR. KATERYNA BRUNSON Exam Date: 11/08/2022/0:30 Family Phys: Charge Code: [id number] Physician: [place] Order #: [id number] Dose#: 11.00 PROCEDURE: CT CHEST/ABD/PELVIS WO COMPARISON: None. INDICATIONS: Trauma. TECHNIQUE: CT images were obtained without the administration of intravenous contrast material. All CT scans at this facility use dose modulation, iterative reconstruction, and/or weight based dosing when appropriate to reduce radiation dose to as low as reasonably achievable. IV CONTRAST: No IV contrast used,0ml TOTAL DOSE: 11.00 CTDIvol(mGy) FINDINGS: LUNGS: Normal. No visible pulmonary disease. VASCULATURE: Normal. Thrombus cannot be excluded without intravenous contrast. ALYSSA: Normal. No mass or adenopathy. MEDIASTINUM: Normal. No mass or adenopathy. CARDIAC: Normal. No enlargement, pericardial thickening, or significant calcification. PLEURA: Small left pleural effusion. CHEST WALL: Normal. No mass or axillary adenopathy. LIVER: Normal. No enlargement, atrophy, abnormal density, or significant focal lesion. BILIARY: Normal. No visible dilatation or calcification. PANCREAS: Nonspecific enlargement of the pancreatic head. There is a 9 millimeter calcification at the head possibly at the ampulla Vater. There is no evidence of biliary dilatation. SPLEEN: Normal. No enlargement or focal lesion. KIDNEYS: Normal. No mass, obstruction, or calcification. ADRENALS: Normal. No mass or enlargement. AORTA/VASCULAR: Normal. No aneurysm. RETROPERITONEUM: Normal. No mass or adenopathy. BOWEL/MESENTERY: Normal. No visible mass, obstruction, or bowel wall thickening. Continued Report - Page 2 of 2 Patient: KYLE MCDANIEL Phone#: : 1960 Age: 61 Gender: M Pt. Type: ER Account: [id number] Location: 010 Ordering: DR. KATERYNA BRUNSON Exam Date: 11/08/2022/0:30 Family Phys: Charge Code: [id number] Physician: [place] Order #: [id number] Dose#: 11.00 ABDOMINAL WALL: Normal. No mass or hernia. URINARY BLADDER: Normal. No visible focal wall thickening, lesion, or calculus. PELVIC NODES: Normal. No adenopathy. PELVIC ORGANS: Normal. No visible mass. Pelvic organs appropriate for patient age. BONES: Nondisplaced fractures of the lateral left 8th and 9th ribs. Fractures of the posterior 8th and 9th ribs at the costovertebral junctions. Anterior displaced tip of the left 2nd lumbar transverse process. Probable displaced fracture of the tip of the left 3rd lumbar transverse process. Moderately severe degenerative changes of the spine are present. OTHER: Negative. CONCLUSION: 1. Fractures of the left 8th and 9th ribs. Fractures of the left transverse process at L2 and L3. 2. There is no evidence of acute thoracic, abdominal pelvic. 3. Enlarged pancreatic head with calcification. Further evaluation by MRI is recommended. Dictated by: Nag Brown MD on 11/08/2022 at 10:57 Approved by: Nga Brown MD on 11/08/2022 at 11:09 Normal [facility] DRUG SCREEN URINE [employer]Con AMPHETAMINES Negative Normal [facility] Comment on above: Performed By: #### 2 96943 #### [place] [address] B-DIAZEPINES Negative Normal [facility] Comment on above: Performed By: #### 2 89098 #### [facility],[address] [place] [address] 42481 BARBITURATES Negative Normal [facility] Comment on above: Performed By: #### 2 31677 #### [facility],[address] [place], [place] [address] COCAINE Positive Normal [facility] Comment on above: Performed By: #### 2 72803 #### [facility],[address] [place], [place] [address] DRUG SCREEN URINE MEDIC Normal [facility] Comment on above: Result Comment: DRUG SCREEN - URINE Performed By: #### 2 39138 #### [facility],[address] [place] [address] METHADONE Negative Normal [facility] Comment on above: Performed By: #### 2 81223 #### [facility],[address] [place] [address] OPIATES Negative Normal [facility] Comment on above: Performed By: #### 2 76873 #### [facility],[address] [place] [address] PCP Negative Normal [facility] Comment on above: Performed By: #### 2 62369 #### [facility],[address] [place] [address] THC Negative Normal [facility] Comment on above: Result Comment: MALIK ENTS RECEIVING PROTON PUMP INHIBITORS MAY DEMONSTRATE FALSE POSITIVE THC/CANNABINOID RESULTS. AN ALTERNATIVE CONFIRMATORY METHOD SHOULD BE CONSIDERED TO VERIFY POSITIVE RESULTS. Performed By: #### 2 90483 #### [facility],[address] [place] [address] Direct bilirubinOrdered By: Rand Amin on 11-08-2022 Bilirubin.direct [Mass/Vol] 0.07 mg/dL 0.00-0.30 [facility] HIV 1 and HIV-2 antibody ass ay with HIV-1 p24 antigen detectionOrdered By: Rand Amin on 11-08-2022 HIV 1+2 Ab+HIV1 p24 Ag IA Ql Non-Reactive Nonreactive [facility] KETONE, BLOOD, QUALon 2022 Ketones Ql (U) MODERATE Normal MONA - NEGATIVE [facility] Comment on above: Result Comment: SPEC IMEN SERUM Performed By: #### 2 79456 #### [facility],[address] [place] [address] LIPASEon 11-08-2022 Lipase [Catalytic activity/Vol] 62.0 U/L Low 73.0 - 393 [facility] Comment on above: Performed By: #### 2 49933 #### [facility],[address] [place] [address] Laboratory - Chemistry and C hemistry - challengeOrdered By: Rand Amin on 11-08-2022 Magnesium [Mass/Vol] 1.8 mg/dL 1.6-2.6 [facility] Laboratory - Drug toxicology Ordered By: Ty Pepper on 11-08-2022 Amphetamines Ql (U) Negative <1000 ng/mL [facility] Benzodiazepines Ql (U) Negative < 200 ng/mL [facility] Cannabinoids Screen Ql (U) Negative < 50 ng/mL [facility] Cocaine Ql (U) Positive < 300 ng/mL [facility] Opiates Ql (U) Positive < 300 ng/mL [facility] No Panel InformationOrdered By: Rand Amin on 11-08-2022 Hepatitis B Surface Antigen Non-Reactive Nonreactive [facility] Hepatitis C Antibody Preliminary Reactive Nonre active [facility] Comment on above: Non Reactive: < 0.8 Equivocal: >/= 0.8 to < 1.0 Reactive: >/= 1.0The CDC recommends that a reactive/equivocal HCV antibody result be followed up by the HCV Nucleic Acid Amplificationtest (553852) No Panel InformationOrdered By: Ty Pepper on 11-08-2022 Ethyl Alcohol Level < 3.0 mg/dL [facility] Comment on above: The serum:whole bloo d ethanol ratio is approximately 1.14and varies slightly with hematocrit. Medical Alcohol reference interval and critical value innon-tolerant individuals; 50 - 100 Impairment 100 Intoxication 100 - 250 Severe Poisoning 250 - 400 Deep/possible fatal coma MDMA (Ecstasy) Screen Negative < 500 ng/mL [facility] Urine Barbiturates Screen Negative < 200 ng/mL [facility] Urine Drug Screen Comment [facility] Comment on above: CONFIRMATORY TESTING FOR ALL POSITIVE URINE DRUG SCREENRESULTS WILL ONLY BE SENT OUT UPON PHYSICIAN ORDER. VISTA Urine Drug Screen methods provide only preliminaryanalytical test results. A more specific alternate chemicalmethod must be used in order to obtain a confirmedanalytical result. Gas chromatography/mass spectrometery(GC/MS) is the preferred confirmatory method. Clinicalconsideration and professional judgement should be appliedto any drug of abuse test result, particularly whenpreliminary positive results are used. URINE TCA TESTING MUST BE ORDERED SEPARATELY. USE TESTMNEMONIC: [facility] Urine Methadone Screen Negative < 300 ng/mL [facility] PT/INR DAILY PATIENT ON COUM ADINon 11-08-2022 INR Coag (PPP) [Relative time] 1.0 {INR} Normal 0.8 - 1.2 [facility] Comment on above: Result Comment: T HE HEMOSIL THROMBOPLASTIN REAGENT USED IN THE PROTHROMBIN TIME TEST INTERACTS WITH THE DRUG CUBICIN (DAPTOMYCIN) AND WILL RESULT IN FALSELY ELEVATED PT / INR RESULTS. INR INTERPRETATION INR INDICATION PREVENTION AND TREATMENT OF THROMBOEMBOLISM ASSOCIATED WITH: 2.0 - 3.0 ATRIAL FIBRILLATION, BIOPROSTHETIC HEART VALVES, PULMONARY EMBOLISM, VENOUS THROMBOSIS, SYSTEMIC EMBOLISM POST MYOCARDIAL INFARCTION 2.5 - 3.5 MECHANICAL HEART VALVES Performed By: #### 2 17469 #### [facility],[address] [place] [address] PT-COUMADIN 11.4 sec Normal 9.3 - 14.1 [facility] Comment on above: Performed By: #### 2 37965 #### [facility],[address] [place] [address] Serum hepatitis B virus surf fransisca antibody IgG detectionOrdered By: Rand Amin on 11-08-2022 HBV surface IgG Ql (S) Non-Reactive [facility] Comment on above: Non Reactive: Incons istent with immunity less than <10 mIU/mL Reactive: Consistent with immunity greater than or equal to 10 mIU/mL TROPONIN I, HIGH SENSITIVITY on 11-08-2022 HS TROPONIN 16.7 pg/mL Normal 0.0 - 76.2 [facility] Comment on above: Performed By: #### 2 33698 #### [facility],[address] [place], [place] [address] URINALYSISon 11-08-2022 Amorphous NONE Normal [facility] Comment on above: Performed By: #### 2 98375 ####[facility],[address] [place] [address] Bacteria NONE Normal [facility] Comment on above: Performed By: #### 2 55304 ####[facility],[address] [place] [address]96[address] Bilirubin Ql (U) Negative Normal NORMAL: NEGATIVE [facility] Comment on above: Performed By: #### 2 56127 ####[facility] [facility],[address] [place] [address] [id number] Casts NONE Normal [facility] Comment on above: Performed By: #### 2 [id number] ####[facility],[address] [place] [address] 23445 Clarity (U) clear Normal NORMAL: CLEAR [facility] Comment on above: Performed By: #### 2 [id number] ####[facility],[address] [place] [address] 24118 Color (U) viki Normal NORMAL: YELLOW [facility] Comment on above: Performed By: #### 2 [id number] ####[facility],[address] [place] [address] 84632 Crystals LM Nom (Urine sed) NONE Normal [facility] Comment on above: Performed By: #### 2 53725 ####[facility],[address] [place] [address] 86525 Epi Cells FEW Normal [facility] Comment on above: Performed By: #### 2 11613 ####[facility],[address] [place] [address] 56512 Glucose Ql (U) 1000 Abnormal NORMAL: NORMAL [facility] Comment on above: Performed By: #### 2 12450 ####[facility],[address] [place] [address] 67468 Hemoglobin Ql (U) 10 Abnormal NORMAL: NEGATIVE [facility] Comment on above: Performed By: #### 2 55168 ####[facility],[address] [place] [address] 65610 Ketone 150 Abnormal NORMAL: NEGATIVE [facility] Comment on above: Performed By: #### 2 11088 ####[facility],[address] [place], [place] [id number] Leukocytes Negative Normal NORMAL: NEGATIVE [facility] Comment on above: Performed By: #### 2 49273 ####[facility],[address] [place] [address] 81350 Mucous NONE Normal [facility] Comment on above: Performed By: #### 2 03005 ####[facility],[address] [place] [address] Nitrite Ql (U) Negative Normal NORMAL: NEGATIVE [facility] Comment on above: Performed By: #### 2 93085 ####[facility],[address] [place] [address] pH (U) 5 [pH] Normal NORMAL: 5.0-8.0 [facility] Comment on above: Performed By: #### 2 92273 ####[facility],[address] [place] [address] Protein Ql (U) 15 Abnormal NORMAL: NEGATIVE [facility] Comment on above: Performed By: #### 2 40360 ####[facility],[address] [place] [address] Rbc NONE Normal 0-3/hpf [facility] Comment on above: Performed By: #### 2 48867 ####[facility],[address] [place] [address] Sp [place] 1.020 Normal NORMAL: 1.010-1.030 [facility] Comment on above: Performed By: #### 2 57724 ####[facility],[address] [place] [address] Specimen Type Clean catch Normal [facility] Comment on above: Performed By: #### 2 29932 ####[facility],[address] [place] [address] Urinalysis dipstick W Reflex Microscopic panel (U) SEE BELOW Normal [facility] Comment on above: Result Comment: MICR OSCOPIC Performed By: #### 2 51363 ####[facility],[address] [place] [address] 44690 Urobilinog 1 Abnormal NORMAL: NORMAL [facility] Comment on above: Performed By: #### 2 53746 ####[facility],[address] [place] [address],[facility] [address] Wbc NONE Normal 0-5/hpf [facility] Comment on above: Performed By: #### 2 43161 ####[facility],[address] [place] [address],[facility] 26769 Yeast NONE Normal [facility] Comment on above: Performed By: #### 2 96751 ####[facility],[address] [place] [address],[place] [id number] Urine phencyclidine (PCP) de tectionOrdered By: Ty Matamoros 11-08-2022 Phencyclidine Ql (U) Negative < 25 ng/mL [facility] EMERGENCY REPORTon 2 EMERGENCY REPORT [facility] EMERGENCY ROOM REPORT NAME ACCOUNT SEX AGE ADMIT DISCHARGE PT MED. RECORD# NUMBER DATE DATE TYPE JONAS [id number] Kendra 61 01/21/22 01/21/22 3 KYLE Smith [id number] ROOM: ER DATE OF : 1960 DICTATING PHYSICIAN: Lee Grady CHIEF COMPLAINT: Knee pain. HISTORY OF PRESENT ILLNESS: The patient is a 61-year-old male who has ongoing pain to his knees secondary to osteoarthritis. He notes that he had a fall this evening and landed on his left knee pretty hard. The patient does have swelling and pain to the left knee. The patient states it is difficult to walk on the left knee secondary to pain. The patient is visiting from [place]. He will be returning to [place] in the coming days. He denies any numbness or weakness distal to the left knee. He denies additional clinical concerns at this time. PAST MEDICAL HISTORY: Notable for osteoarthritis and diabetes. PAST SURGICAL HISTORY: Notable for pancreatic stents. ALLERGIES: No known drug allergies. SOCIAL HISTORY: The patient is a current everyday smoker and occasionally uses alcohol, with today being his most recent use. He denies illicit substance use or prescription drug abuse. The patient lives with family. The patient denies concerns for self-harm or domestic violence. REVIEW OF SYSTEMS: Pertinent positives as noted per HPI. PHYSICAL EXAMINATION: VITAL SIGNS: Temperature is 98, pulse 94, respiratory rate 18, blood pressure 138/94, and oxygen saturation 97% on room air. GENERAL: The patient is awake, alert, oriented, and in no acute distress. HEENT: Atraumatic, normocephalic. Mucous membranes are moist. Extraocular muscles are intact. NECK: Supple. Range of motion is normal. CARDIOVASCULAR: Regular rate and rhythm. No murmurs, rubs or gallops. PULMONARY: Clear to auscultation bilaterally. No wheezes, rales or rhonchi. ABDOMEN: Soft, nontender and nondistended. EXTREMITIES: Unremarkable with the exception of the left knee, which is swollen in appearance. Range of motion is limited in the extremes of extension and flexion secondary to pain. There is no maceration. There is a slight abrasion to the anterior portion of the knee. NEUROLOGIC: No focal deficits. Sensation distal to the left knee is intact. Motor function distal to the left knee is intact. PSYCHIATRIC: Appropriate for age and Page 1 of 2 KYLE MCDANIEL Emergency Room Report KYLE MCDANIEL : 1960 situation. DIAGNOSTIC DATA: X-ray series of the left knee is notable for tricompartmental osteoarthritis and swelling but otherwise negative for fracture or dislocation at this time. MEDICAL DECISION-MAKING/EMERGEN CY DEPARTMENT COURSE AND TREATMENT: The patient is a 61-year-old male with a history of osteoarthritis, who presents after a mild traumatic injury to his left knee. Findings are likely consistent with a flare of his osteoarthritis secondary to the injury. I do feel that the patient would benefit from keeping the weight off the left knee and did recommend toe-touch weightbearing until reevaluated by his primary care provider. The patient was provided with a set of crutches here in the Emergency Department. I did provide the patient with prescriptions for prednisone and Motrin for home-going. Radiology is negative for fracture or dislocation at this time, as noted above. I do feel the patient is a low risk for DVT, fracture, neurovascular injury, or other acute complications of his injury/pain at this time. All of the patient's questions were answered to his satisfaction at this time, and he did feel comfortable with the plan for outpatient follow-up. An Fransisca wrap was applied to the patient's knee. DIAGNOSIS: Left knee injury/osteoarthritis flare. PLAN/DISPOSITION: Discharged home in good condition. Dictated By: Lee Grady MD 02/21/22 23:44 JOB #: [id number] Transcribed By: [email or web address] 02/22/22 14:08 Electronically signed by: DR. LEE GRADY 05/14/22 05:00 Page 2 of 2 KYLE MCDANIEL Emergency Room Report Normal [facility] KNEE COMPLETE LT MIN 4 VIEWS on 01-21-2022 KNEE COMPLETE LT MIN 4 VIEWS [place] [address] Patient: KYLE MCDANIEL. Phone#: : 1960 Age: 61 Gender: M Pt. Type: ER Account: [id number] Location: [facility] Ordering: LEE GRADY Exam Date: 01/21/2022/4:10 Family Phys: Charge Code: [id number] Physician: [place] Order #: [id number] DLP Dose#: PROCEDURE: X-RAY KNEE LT COMPLETE 4 VIEWS COMPARISON: None. INDICATIONS: Pain. FINDINGS: BONES: There is medial compartment joint space loss. There is spurring of the medial lateral femoral condyles and tibial plateau. There is spurring of the undersurface of the patella. SOFT TISSUES: There is a small a moderate size suprapatellar joint effusion. EFFUSION: None visible. OTHER: Negative. CONCLUSION: 1. No acute osseous abnormality 2. Joint effusion 3. Tricompartmental osteoarthritis Dictated by: Anais Bundy MD on 01/21/2022 at 10:08 Approved by: Anais Bundy MD on 01/21/2022 at 10:09 Normal [facility] Vital Signs Date Time Vital Sign Value Performing Clinician Facility 07-10-2024 13:15-0500 Body height 185.4 cm Evans Mccloud MD Work Phone: [facility] 07-10-2024 13:15-0500 Body mass index (BMI) [Ratio] 29.03 kg/m2 Evans Mccloud MD Work Phone: [facility] 07-10-2024 13:15-0500 Body weight 99.79 kg Evans Mccloud MD Work Phone: [facility] 07-10-2024 13:15-0500 Diastolic blood pressure 72 mm[Hg] Evans Mccloud MD Work Phone: [facility] 07-10-2024 13:15-0500 Heart rate 86 /min Evans Mccloud MD Work Phone: [facility] 07-10-2024 13:15-0500 Respiratory rate 17 /min Evans Mccloud MD Work Phone: [facility] 07-10-2024 13:15-0500 SaO2% (BldA) [Mass fraction] 74 % Evans Mccloud MD Work Phone: [facility] 07-10-2024 13:15-0500 Systolic blood pressure 111 mm[Hg] Evans Mccloud MD Work Phone: [facility] 06-11-2024 14:08-0500 Body height 185.4 cm Gia Calloway MD Work Phone: [facility] 06-11-2024 14:08-0500 Body mass index (BMI) [Ratio] 29.82 kg/m2 Gia Calloway MD Work Phone: [facility] 06-11-2024 14:08-0500 Body weight 102.51 kg Gia Calloway MD Work Phone: [facility] 06-11-2024 14:08-0500 Diastolic blood pressure 64 mm[Hg] Gia Calloway MD Work Phone: [facility] 06-11-2024 14:08-0500 Heart rate 78 /min Gia Calloway MD Work Phone: [facility] 06-11-2024 14:08-0500 SaO2% (BldA) [Mass fraction] 97 % Gia Calloway MD Work Phone: [facility] 06-11-2024 14:08-0500 Systolic blood pressure 122 mm[Hg] Gia Calloway MD Work Phone: [facility] 04-12-2024 15:07-0400 Body mass index (BMI) [Ratio] 29.47 kg/m2 Kevin Molina MD Work Phone: [facility] 04-12-2024 15:07-0400 Body weight 101.33 kg Kevin Molina MD Work Phone: [facility] 04-12-2024 15:07-0400 Diastolic blood pressure 78 mm[Hg] Kevin Molina MD Work Phone: [facility] 04-12-2024 15:07-0400 Heart rate 95 /min Kevin Molina MD Work Phone: [facility] 04-12-2024 15:07-0400 Systolic blood pressure 108 mm[Hg] Kevin Molina MD Work Phone: [facility] 03-08-2024 08:44-0400 Body height 185.4 cm Tracey Brown APRN.[employer]INTER [employer] Work Phone: [facility] 03-08-2024 08:44-0400 Body mass index (BMI) [Ratio] 29.16 kg/m2 Tracey Brown APRN.[employer]INTER [employer] Work Phone: [facility] 03-08-2024 08:44-0400 Body weight 100.25 kg Tracey Brown APRN.[employer]INTER [employer] Work Phone: [facility] 03-08-2024 08:44-0400 Diastolic blood pressure 108 mm[Hg] Tracey Brown APRN.PAINTER [employer] Work Phone: [facility] 03-08-2024 08:44-0400 Heart rate 73 /min Tracey Brown APRN.[employer]INTER [employer] Work Phone: [facility] 03-08-2024 08:44-0400 SaO2% (BldA) [Mass fraction] 96 % Tracey Brown 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 [employer] Work Phone: [facility] 03-08-2024 08:44-0400 Systolic blood pressure 162 mm[Hg] Tracey Brown 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 [employer] Work Phone: [facility] 03-05-2024 14:33-0400 Body height 185.4 cm Gia Calloway MD Work Phone: [facility] 03-05-2024 14:33-0400 Diastolic blood pressure 80 mm[Hg] Gia Calloway MD Work Phone: [facility] 03-05-2024 14:33-0400 Heart rate 95 /min Gia Calloway MD Work Phone: [facility] 03-05-2024 14:33-0400 SaO2% (BldA) [Mass fraction] 96 % Gia Calloway MD Work Phone: [facility] 03-05-2024 14:33-0400 Systolic blood pressure 136 mm[Hg] Gia Calloway MD Work Phone: [facility] 02-15-2024 11:27-0400 Diastolic blood pressure 88 mm[Hg] Ethan Diallo MD Work Phone: [facility] 02-15-2024 11:27-0400 Heart rate 66 /min Ethan Diallo MD Work Phone: [facility] 02-15-2024 11:27-0400 Respiratory rate 23 /min Ethan Diallo MD Work Phone: [facility] 02-15-2024 11:27-0400 SaO2% (BldA) [Mass fraction] 97 % Ethan Diallo MD Work Phone: [facility] 02-15-2024 11:27-0400 Systolic blood pressure 123 mm[Hg] Ethan Diallo MD Work Phone: [facility] 02-15-2024 11:11-0400 Body temperature 97.3 [degF] Ethan Diallo MD Work Phone: [facility] 02-09-2024 08:26-0400 Body height 185.4 cm Jewel Fuentes MD Work Phone: [facility] 02-09-2024 08:26-0400 Body mass index (BMI) [Ratio] 28.37 kg/m2 Jewel Fuentes MD Work Phone: [facility] 02-09-2024 08:26-0400 Body weight 97.52 kg Jewel Fuentes MD Work Phone: [facility] 02-09-2024 08:26-0400 Diastolic blood pressure 91 mm[Hg] Jewel Fuentes MD Work Phone: [facility] 02-09-2024 08:26-0400 Systolic blood pressure 134 mm[Hg] Jewel Fuentes MD Work Phone: [facility] 01-16-2024 11:15-0400 Body height 185.4 cm Gia Calloway MD Work Phone: [facility] 01-16-2024 11:15-0400 Body mass index (BMI) [Ratio] 28.5 kg/m2 Gia Calloway MD Work Phone: [facility] 01-16-2024 11:15-0400 Body weight 97.98 kg Gia Calloway MD Work Phone: [facility] 01-16-2024 11:15-0400 Diastolic blood pressure 80 mm[Hg] Gia Calloway MD Work Phone: [facility] 01-16-2024 11:15-0400 Heart rate 90 /min Gia Calloway MD Work Phone: [facility] 01-16-2024 11:15-0400 SaO2% (BldA) [Mass fraction] 97 % Gia Calloway MD Work Phone: [facility] 01-16-2024 11:15-0400 Systolic blood pressure 126 mm[Hg] Gia Calloway MD Work Phone: [facility] 01-12-2024 08:05-0400 Diastolic blood pressure 85 mm[Hg] Jewel Fuentes MD Work Phone: [facility] 01-12-2024 08:05-0400 Systolic blood pressure 144 mm[Hg] Jewel Fuentes MD Work Phone: [facility] 12-21-2023 06:36-[address] Cuff Size DR YOLANDA BYRD MD [facility] 12-21-2023 06:36-[address] YOLANDA BYRD MD [address] [place] [address] 12-21-2023 06:36-[address] YOLANDA BYRD MD [address] 12-21-2023 06:36-0400 Body temperature 97.52 [degF] DR YOLANDA BYRD MD [facility] 12-21-2023 06:36-0400 Diastolic Blood Pressure Non-Invasive 64 mm[Hg] DR YOLANDA BYRD MD [address] [place] [address] 12-21-2023 06:36-0400 Heart rate 69 /min DR YOLANDA BYRD MD [facility] 12-21-2023 06:36-0400 Reason For Taking VItal Signs DR YOLANDA BYRD MD [facility] 12-21-2023 06:36-0400 Respiratory rate 16 /min DR YOLANDA BYRD MD [facility] 12-21-2023 06:36-0400 Systolic Blood Pressure Non-Invasive 96 mm[Hg] DR YOLANDA BYRD MD [facility] 12-20-2023 23:09-04[address] Cuff Size DR YOLANDA BYRD MD [facility] 12-20-2023 23:09-[address] YOLANDA BYRD MD [address] [place] [address] 12-20-2023 23:09-[address] YOLANDA BYRD MD [address] [place] [address] 12-20-2023 23:09-0400 Body temperature 97.7 [degF] DR YOLANDA BYRD MD [address] 12-20-2023 23:09-0400 Diastolic Blood Pressure Non-Invasive 73 mm[Hg] DR YOLANDA BYRD MD [address] [place] [address] 12-20-2023 23:09-0400 Heart rate 63 /min DR YOLANDA BYRD MD [address] [place] [address] 12-20-2023 23:09-0400 Reason For Taking VItal Signs DR YOLANDA BYRD MD [address] [place] [address] 12-20-2023 23:09-0400 Respiratory rate 16 /min DR YOLANDA BYRD MD [address] [place] [address] 12-20-2023 23:09-0400 Systolic Blood Pressure Non-Invasive 109 mm[Hg] DR YOLANDA BYRD MD [address] [place] [address] 12-20-2023 14:39-0400 Body temperature 97.88 [degF] DR YOLANDA BYRD MD [address] [place] [address] 12-20-2023 14:39-0400 Diastolic Blood Pressure Non-Invasive 78 mm[Hg] DR YOLANDA BYRD MD [address] [place] [address] 12-20-2023 14:39-0400 Heart rate 64 /min DR YOLANDA BYRD MD [address] [place] [address] 12-20-2023 14:39-0400 Respiratory rate 16 /min DR YOLANDA BYRD MD [address] [place] [address] 12-20-2023 14:39-0400 Systolic Blood Pressure Non-Invasive 108 mm[Hg] DR YOLANDA BYRD MD [address] [place] [address] 06-26-2024 06:45-04[address] Cuff Size DR YOLANDA BYRD MD [address] [place] [address] 12-20-2023 06:45-[address] YOLANDA BYRD MD [address] [place] [address] 12-20-2023 06:45-[address] YOLANDA BYRD MD [address] [place] [address] 12-20-2023 06:45-0400 Reason For Taking VItal Signs DR YOLANDA BYRD MD [address] [place] [address] 12-19-2023 05:12-0400 Body height 185.[address] YOLANDA BYRD MD [address] [place] [address] 12-19-2023 05:12-0400 Body weight [address] YOLANDA BYRD MD [address] [place] [address] 12-19-2023 05:12-0400 Body weight 29.09 kg/m2 DR YOLANDA BYRD MD [address] [place] [address] 12-19-2023 04:26-0400 Heart rate 61 /min DR YOLANDA BYRD MD [address] [place] [address] 12-19-2023 04:26-0400 Mean blood pressure 98 mm[Hg] DR YOLANDA BYRD MD [address] [place] [address] 12-19-2023 01:00-0400 Heart rate 69 /min DR YOLANDA BYRD MD [address] [place] [address] 12-19-2023 01:00-0400 Mean blood pressure 83 mm[Hg] DR YOLANDA BYRD MD [address] [place] [address] 12-19-2023 00:00-0400 Heart rate 70 /min DR YOLANDA BYRD MD [address] [place] [address] 12-19-2023 00:00-0400 Mean blood pressure 77 mm[Hg] DR YOLANDA BYRD MD [address] [place] [address] 12-18-2023 10:34-0400 Body temperature 98.24 [degF] DR YOLANDA BYRD MD [facility] 12-18-2023 10:34-0400 Body weight [address] YOLANDA BYRD MD [facility] 12-05-2023 15:55-0400 Diastolic Blood Pressure Non-Invasive 72 mm[Hg] VERITO SLOGGETT PA-C [facility] 12-05-2023 15:55-0400 Heart rate 72 /min VERITO SLOGGETT PA-C [facility] 12-05-2023 15:55-0400 Respiratory rate 18 /min VERITO SLOGGETT PA-C [facility] 12-05-2023 15:55-0400 Systolic Blood Pressure Non-Invasive 117 mm[Hg] VERITO SLOGGETT PA-C [address] [place] [address] 12-05-2023 15:41-0400 Diastolic Blood Pressure Non-Invasive 80 mm[Hg] VERITO SLOGGETT PA-C [facility] 12-05-2023 15:41-0400 Heart rate 74 /min VERITO SLOGGETT PA-C [facility] 12-05-2023 15:41-0400 Respiratory rate 16 /min VERITO SLOGGETT PA-C [facility] 12-05-2023 15:41-0400 Systolic Blood Pressure Non-Invasive 110 mm[Hg] VERITO SLOGGETT PA-C [facility] 12-05-2023 15:27-0400 Diastolic Blood Pressure Non-Invasive 78 mm[Hg] VERITO SLOGGETT PA-C [facility] 12-05-2023 15:27-0400 Heart rate 71 /min VERITO SLOGGETT PA-C [facility] 12-05-2023 15:27-0400 Respiratory rate 14 /min VERITO DANNYGGETT PA-C [facility] 12-05-2023 15:27-0400 Systolic Blood Pressure Non-Invasive 118 mm[Hg] VERITO DANNYGGETT PA-C [facility] 12-05-2023 15:15-0400 Heart rate 71 /min VERITO SLOGGETT PA-C [facility] 12-05-2023 13:13-0400 Blood Pressure Location VERITO SLOGGETT PA-C [address] [place] [address] 12-05-2023 13:13-0400 Blood Pressure Method VERITO SLOGGETT PA- C [facility] 12-05-2023 13:13-0400 Body height 185.4 cm VERITO SLOGGETT PA-C [address] [place] [address] 12-05-2023 13:13-0400 Body temperature 97.88 [degF] VERITO DANNYGGETT PA-C [facility] 12-05-2023 13:13-0400 Body weight 96 kg VERITO DANNYGGETT PA-C [facility] 12-05-2023 13:13-0400 Body weight 27.93 kg/m2 VERITO SLOGGETT PA-C [facility] 12-05-2023 13:13-0400 Heart rate 81 /min VERITO SLOGGETT PA-C [facility] 12-04-2023 12:58-0400 Diastolic Blood Pressure Non-Invasive 72 mm[Hg] BUCK BOATENG DO [facility] 12-04-2023 12:58-0400 Heart rate 79 /min BUCK BOATENG DO [facility] 12-04-2023 12:58-0400 Respiratory rate 18 /min BUCK BOATENG DO [facility] 12-04-2023 12:58-0400 Systolic Blood Pressure Non-Invasive 112 mm[Hg] BUCK BOATENG DO [facility] 12-04-2023 09:53-0400 Diastolic Blood Pressure Non-Invasive 76 mm[Hg] BUCK BOATENG DO [facility] 12-04-2023 09:53-0400 Heart rate 74 /min BUCK BOATENG DO [facility] 12-04-2023 09:53-0400 Respiratory rate 18 /min BUCK BOATENG DO [facility] 12-04-2023 09:53-0400 Systolic Blood Pressure Non-Invasive 118 mm[Hg] BUCK BOATENG DO [facility] 12-04-2023 08:51-0400 Body height 185.4 cm BUCK BOATENG DO [facility] 12-04-2023 08:51-0400 Body temperature 97.16 [degF] BUCK BOATENG DO [facility] 12-04-2023 08:51-0400 Body weight 97 kg BUCK BOATENG DO [address] [place] [address] 12-04-2023 08:51-0400 Diastolic Blood Pressure Non-Invasive 83 mm[Hg] BUCK BOATENG DO [facility] 12-04-2023 08:51-0400 Heart rate 91 /min BUCK BOATENG DO [address] [place] [address] 12-04-2023 08:51-0400 Respiratory rate 18 /min BUCK BOATENG DO [facility] 12-04-2023 08:51-0400 Systolic Blood Pressure Non-Invasive 119 mm[Hg] BUCK BOATENG DO [facility] 11-22-2023 15:35-0400 Diastolic Blood Pressure Non-Invasive 91 mm[Hg] RED VALENZUELA MD [address] [place] [address] 11-22-2023 15:35-0400 Heart rate 57 /min RED VALENZUELA MD [address] [place] [address] 11-22-2023 15:35-0400 Respiratory rate 13 /min RED VALENZUELA MD [address] [place] [address] 11-22-2023 15:35-0400 Systolic Blood Pressure Non-Invasive 117 mm[Hg] RED VALENZUELA MD [address] [place] [address] 11-22-2023 15:30-0400 Diastolic Blood Pressure Non-Invasive 73 mm[Hg] RED VALENZUELA MD [address] [place] [address] 11-22-2023 15:30-0400 Heart rate 57 /min RED VALENZUELA MD [address] [place] [address] 11-22-2023 15:30-0400 Respiratory rate 12 /min RED VALENZUELA MD [address] [place] [address] 11-22-2023 15:30-0400 Systolic Blood Pressure Non-Invasive 123 mm[Hg] RED VALENZUELA MD [address] [place] [address] 11-22-2023 15:25-0400 Diastolic Blood Pressure Non-Invasive 73 mm[Hg] RED VALENZUELA MD [address] [place] [address] 11-22-2023 15:25-0400 Heart rate 55 /min RED VALENZUELA MD [address] [place] [address] 11-22-2023 15:25-0400 Respiratory rate 12 /min RED VALENZUELA MD [address] [place] [address] 11-22-2023 15:25-0400 Systolic Blood Pressure Non-Invasive 122 mm[Hg] RED VALENZUELA MD [address] [place] [address] 11-22-2023 12:05-0400 Blood Pressure Cuff Size RED VALENZUELA MD [address] [place] [address] 11-22-2023 12:05-0400 Blood Pressure Location RED VALENZUELA MD [address] [place] [address] 11-22-2023 12:05-0400 Blood Pressure Method RED VALENZUELA MD [address] [place] [address] 11-22-2023 12:05-0400 Body temperature 98.42 [degF] RED VALENZUELA MD [address] [place] [address] 11-22-2023 12:05-0400 Heart rate 66 /min RED VALENZUELA MD [address] 11-22-2023 12:05-0400 Heart rate 67 /min RED VALENZUELA MD [address] 11-22-2023 12:05-0400 Reason For Taking VItal Signs RED VALENZUELA MD [address] [place] [address] 11-22-2023 05:55-0400 Blood Pressure Cuff Size RED VALENZUELA MD [address] 11-22-2023 05:55-0400 Blood Pressure Location RED VALENZUELA MD [address] [place] [address] 11-22-2023 05:55-0400 Blood Pressure Method RED VALENZUELA MD [address] [place] [address] 11-22-2023 05:55-0400 Body temperature 98.06 [degF] RED VALENZUELA MD [address] 11-21-2023 23:08-0400 Reason For Taking VItal Signs RED VALENZUELA MD [address] [place] [address] 11-21-2023 21:48-0400 Blood Pressure Cuff Size RED VALENZUELA MD [address] [place] [address] 11-21-2023 21:48-0400 Blood Pressure Location RED VALENZUELA MD [address] [place], [place] [id number] 21:48-0400 Blood Pressure Method RED VALENZUELA MD [address] [place] [address] 11-21-2023 21:48-0400 Heart rate 64 /min RED VALENZUELA MD [address] [place] [address] 11-21-2023 18:00-0400 Body temperature 97.7 [degF] RED VALENZUELA MD [address] [place] [address] 11-21-2023 18:00-0400 Heart rate 65 /min RED VALENZUELA MD [address] [place] [address] 11-21-2023 06:41-0400 Mean blood pressure 81 mm[Hg] RED VALENZUELA MD [address] [place] [address] 11-21-2023 04:40-0400 Mean blood pressure 85 mm[Hg] RED VALENZUELA MD [address] [place] [address] 11-20-2023 23:30-0400 Mean blood pressure 85 mm[Hg] RED VALENZUELA MD [address] [place] [address] 11-20-2023 15:28-0400 Body weight 102.5 kg RED VALENZUELA MD [address] [place] [address] 11-17-2023 14:22-0400 Heart rate 65 /min RED VALENZUELA MD [address] [place] [address] 11-17-2023 10:43-0400 Heart rate 72 /min RED VALENZUELA MD [address] [place] [address] 11-15-2023 19:52-0400 Body temperature 99.68 [degF] RED VALENZUELA MD [address] [place] [address] 11-12-2023 21:48-0400 Body height 185.4 cm RED VALENZUELA MD [address] [place] [address] 11-12-2023 21:48-0400 Body weight 99 kg RED VALENZUELA MD [facility] 11-12-2023 21:48-0400 Body weight 28.8 kg/m2 RED VALENZUELA MD [facility] 11-12-2023 11:32-0400 Body weight 99 kg RED VALENZUELA MD [facility] 01-05-2023 05:00-0400 Respiratory rate 16 /min Dr. Ty Pepper Work Phone: [facility] 01-05-2023 03:09-0400 SaO2% (BldA) [Mass fraction] 96 % Dr. Ty Pepper Work Phone: [facility] 01-04-2023 22:19-0400 Diastolic blood pressure 82 mm[Hg] Dr. Ty Pepper Work Phone: 6(585)362-376843 [place] [address] 01-04-2023 22:19-0400 Heart rate 89 /min Dr. Ty Pepper Work Phone: [facility] 01-04-2023 22:19-0400 Systolic blood pressure 124 mm[Hg] Dr. Ty Pepper Work Phone: [facility] 01-04-2023 18:12-0400 Body height 190.[address] Ty Pepper Work Phone: [facility] 01-04-2023 18:12-0400 Body mass index (BMI) [Ratio] 28.3 kg/m2 Dr. Ty Pepper Work Phone: [facility] 01-04-2023 18:12-0400 Body temperature 97.3 [degF] Dr. Ty Pepper Work Phone: 7(705)645-594043 [place] [address] 01-04-2023 18:12-0400 Body weight 102.[address] Ty Pepper Work Phone: [facility] 12-06-2022 23:10-0400 Body mass index (BMI) [Ratio] 29.5 kg/m2 Dr. Ty Pepper Work Phone: 2(212)202-989743 [place] [address] 12-06-2022 23:10-0400 Body temperature 97 [degF] Dr. Ty Pepper Work Phone: 4(005)085-934743 [place] [address] 12-06-2022 23:10-0400 Body weight 101.[address] Ty Pepper Work Phone: 1(941)113-050023 [place] [address] 12-06-2022 23:10-0400 Diastolic blood pressure 87 mm[Hg] Dr. Ty Pepper Work Phone: 0(330)869-563023 [place] [address] 12-06-2022 23:10-0400 Heart rate 92 /min Dr. Ty Pepper Work Phone: 7(561)127-138523 [place] [address] 12-06-2022 23:10-0400 Respiratory rate 16 /min Dr. Ty Pepper Work Phone: 8(394)448-562623 [place] [address] 12-06-2022 23:10-0400 SaO2% (BldA) [Mass fraction] 98 % Dr. Ty Pepper Work Phone: 1(843)647-441923 [place] [address] 12-06-2022 23:10-0400 Systolic blood pressure 114 mm[Hg] Dr. Ty Pepper Work Phone: 0(972)022-661923 [place] [address] 11-14-2022 18:58-0400 Body mass index (BMI) [Ratio] 27.4 kg/m2 Dr. Ty Pepper Work Phone: 3(396)318-378723 [place] [address] 11-14-2022 18:58-0400 Body temperature 97.6 [degF] Dr. Ty Pepper Work Phone: 5(784)829-682523 [place] [address] 11-14-2022 18:58-0400 Body weight 94.[address] Ty Pepper Work Phone: 5(011)371-934523 [place] [address] 11-14-2022 18:58-0400 Diastolic blood pressure 80 mm[Hg] Dr. Ty Pepper Work Phone: 3(122)754-193123 [place] [address] 11-14-2022 18:58-0400 Heart rate 83 /min Dr. Ty Pepper Work Phone: 7(510)359-711224 [address] 11-14-2022 18:58-0400 Respiratory rate 16 /min Dr. Ty Pepper Work Phone: [facility] 11-14-2022 18:58-0400 SaO2% (BldA) [Mass fraction] 99 % Dr. Ty Pepper Work Phone: [facility] 11-14-2022 18:58-0400 Systolic blood pressure 124 mm[Hg] Dr. Ty Pepper Work Phone: [facility] 11-14-2022 08:45-0400 Body temperature 97.5 [degF] Dr. Ty Pepper Work Phone: [facility] 11-14-2022 08:45-0400 Diastolic blood pressure 72 mm[Hg] Dr. Ty Pepper Work Phone: 6(736)844-101324 [address] 11-14-2022 08:45-0400 Heart rate 68 /min Dr. Ty Pepper Work Phone: 0(238)604-395124 [address] 11-14-2022 08:45-0400 Respiratory rate 18 /min Dr. Ty Pepper Work Phone: [facility] 11-14-2022 08:45-0400 SaO2% (BldA) [Mass fraction] 96 % Dr. Ty Pepper Work Phone: [facility] 11-14-2022 08:45-0400 Systolic blood pressure 98 mm[Hg] Dr. Ty Pepper Work Phone: [facility] 11-09-2022 17:16-0400 Inhaled oxygen flow rate 3 L/min Dr. Ty Pepper Work Phone: [facility] 11-09-2022 15:26-0400 Body weight 91.[address] Ty Pepper Work Phone: [facility] 11-08-2022 20:40-0400 Body mass index (BMI) [Ratio] 26.6 kg/m2 Dr. Ty Pepper Work Phone: [facility] Encounters Encounter Date Encounter Type Care Provider Facility Start: 02-27-2025 End: 02-27-2025 ambulatory Mago Elliott MD Work Phone: -Laboratory [facility] Start: 02-27-2025 End: 02-27-[address] Mago Elliott MD -Laboratory [facility] Start: 02-27-2025 End: 02-27-2025 ambulatory Mago Elliott Facility:[facility] Start: 01-24-2025 ambulatory [facility] Facility: [facility] Start: 01-19-2025 End: 01-19-2025 Emergency department patient visit CHUCKIE BURNS Facility:[id number] Start: 01-14-2025 ambulatory Daniellaluisa Oliva Facility: [facility] Start: 11-08-2024 End: 11-08-2024 Telephone encounter Tracey Brown APRN.[facility] Work Phone: [facility] DEPARTMENT Comment on above: Patient Update Start: 10-17-2024 Non-patient / Non-visit Dr. Leonardo barber MD -[facility] Start: 10-17-2024 End: 10-17-2024 ambulatory Mago Elliott MD Work Phone: [facility] Work Phone: Start: 10-17-2024 End: 10-17-[address] Toni Luna MD -Cardiovascular Services Work Phone: Start: 10-17-2024 End: 10-17-2024 ambulatory Toni Luna Facility:[facility] Start: 10-03-2024 End: 10-03-[address] Mago Elliott MD -[facility] Work Phone: Start: 10-03-2024 End: 10-03-2024 ambulatory Mago Elliott MD Work Phone: [facility] Work Phone: Start: 09-04-2024 End: 09-04-2024 Refill Shoshana Barraza PA-C Work Phone: [facility] DEPARTMENT Comment on above: Refill Request Start: 07-25-2024 End: 07-25-2024 Admission to same day surgery center Shoshana Barraza YASMANYAdy Work Phone: 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 SURGERY DEPARTMENT Start: 07-25-2024 End: 07-25-2024 ambulatory CHALNGOC LEXI [facility] Start: 07-18-2024 End: 07-18-2024 Telephone encounter Evans Mccloud MD Work Phone: Pain Management Start: 07-10-2024 End: 07-10-2024 Office outpatient new 45 minutes Evans Mccloud MD Work Phone: Pain Management Comment on above: Chronic pancreatitis , unspecified pancreatitis type (HCC) (Primary Dx); Lumbar spondylosis; Chronic pain of left knee Start: 07-10-2024 End: 07-10-2024 ambulatory EVANS MCCLOUD Facility:[id number] Start: 07-09-2024 End: 07-09-2024 Emergency department patient visit MAGO ELLIOTT Facility:[id number] Start: 06-25-2024 End: 06-25-2024 Telephone encounter Segun Escalona APRN.CNP Work Phone: [facility] Start: 06-21-2024 End: 06-21-2024 Emergency department patient visit MAGO ELLIOTT Facility:[id number] Start: 06-11-2024 End: 06-11-2024 Office outpatient visit 40 minutes Gia Calloway MD Work Phone: [facility] DEPARTMENT Comment on above: Chronic pancreatitis , unspecified pancreatitis type (HCC) (Primary Dx) Start: 06-11-2024 End: 06-11-2024 ambulatory GIA CALLOWAY Facility:[facility] Start: 06-06-2024 End: 06-06-2024 ambulatory GIA CALLOWAY Facility:[id number] Start: 06-04-2024 End: 06-04-2024 Telephone encounter Kevin Molina MD Work Phone: [facility] Cardiology [place] Comment on above: Results Start: 06-03-2024 ambulatory KEVIN MOLIAN Facility:[facility] Start: 06-03-2024 End: 06-03-2024 Subsequent hospital visit by physician Card Lab [facility] CARDIAC TESTING Comment on above: Arrived Start: 05-31-2024 End: 05-31-2024 ambulatory JULIOCESARLuis MAHMOODCOMB Facility:[facility] Start: 05-30-2024 End: 05-30-2024 Emergency department patient visit MAGO ELLIOTT Facility:[id number] Start: 05-27-2024 End: 05-27-2024 Telephone encounter Amrik Belle MD Work Phone: [facility] Endocrinology Start: 05-16-2024 End: 05-16-2024 Orders Only Gia Calloway MD Work Phone: [facility] SURGERY DEPARTMENT Comment on above: Alcohol-induced human resource advisor krysta pancreatitis (HCC) (Primary Dx) Start: 05-15-2024 End: 05-15-2024 Telephone encounter Jewel Fuentes MD Work Phone: Urology Comment on above: Orders Start: 05-15-2024 End: 05-15-2024 ambulatory MAGO ELLIOTT Facility:[id number] Start: 05-14-2024 End: 05-14-2024 Emergency department patient visit DONNA BAILEY Facility:[id number] Start: 05-10-2024 End: 05-13-2024 Telephone encounter Richele Smart 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 AIRBRUSH Work Phone: [facility] Spine and Pain Comment on above: Appointment Start: 05-10-2024 End: 05-10-2024 Unlisted evaluation and management service Richele Smart 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 AIRBRUSH Work Phone: [facility] General Spine and Pain Comment on above: Chronic bilateral lo w back pain without sciatica (Primary Dx); APPOINTMENT CANCELLED Start: 05-10-2024 End: 05-10-2024 ambulatory RICHELE SMART Facility:[id number] Start: 05-08-2024 End: 05-08-2024 Emergency department patient visit GRACIE PICKERING Facility:[facility] Start: 05-07-2024 End: 05-07-2024 Emergency department patient visit MAGO ELLIOTT Facility:[id number] Start: 05-02-2024 End: 05-02-2024 Telephone encounter Tracey Brown APRN.CNP Work Phone: 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 SURGERY DEPARTMENT Start: 04-30-2024 End: 04-30-2024 ambulatory GIA CALLOWAY Facility:[facility] Start: 04-25-2024 End: 04-25-2024 Telephone encounter Kevin Molina MD Work Phone: [facility] Cardiology [place] Start: 04-25-2024 End: 04-25-2024 ambulatory MAGO ELLIOTT Facility:[id number] Start: 04-22-2024 Emergency department patient visit CHALNGOC ELLIOTT Facility:[id number] Start: 04-12-2024 End: 04-12-2024 Patient encounter procedure Kevin Molina MD Work Phone: [facility] Cardiology [place] Comment on above: Systolic dysfunction without heart failure (Primary Dx); Preoperative clearance; Hyperlipidemia, unspecified hyperlipidemia type; ACC/AHA stage B heart failure (HCC); Tobacco abuse; Alcohol abuse Start: 04-12-2024 End: 04-12-2024 Preoperative state Kevin Molina MD Work Phone: [facility] Start: 04-12-2024 End: 04-12-2024 ambulatory CHALON LEXI Facility:[facility] Start: 04-12-2024 Encounter for other preprocedural examination KEVIN MOLINA [facility] Start: 04-11-2024 End: 04-11-2024 Telephone encounter Tracey Brown APRN.PAINTER AIRBRUSH Work Phone: [facility] DEPARTMENT Comment on above: Patient Update Start: 04-08-2024 End: 04-08-2024 ambulatory MAGO ELLIOTT Facility:[facility] Start: 04-02-2024 End: 04-02-2024 Orders Only Gia Calloway MD Work Phone: [facility] Comment on above: Alcohol-induced human resource advisor krysta pancreatitis (HCC) (Primary Dx) Start: 03-29-2024 End: 03-29-2024 Subsequent hospital visit by physician Echo Lab [facility] Cardiology Comment on above: Diastolic congestive heart failure, unspecified HF chronicity (HCC) [I50.30] Start: 03-29-2024 End: 03-29-2024 ambulatory GIA CALLOWAY Facility:[id number] Start: 03-22-2024 End: 03-22-2024 Telephone encounter Tracey Brown APRN.PAINTER [employer]BR[employer] Work Phone: [facility] DEPARTMENT Comment on above: Patient Update Start: 03-21-2024 End: 03-22-2024 Emergency department patient visit MAGO ELLIOTT Facility:[id number] Start: 03-19-2024 End: 03-26-2024 Telephone encounter Amrik Belle MD Work Phone: [facility] Endocrinology Comment on above: Appointment (New pat ient 20 minutes); Referral Request (Diabetes education) Start: 03-15-2024 End: 03-15-2024 Orders Only Gia Calloway MD Work Phone: [facility] Comment on above: Alcohol-induced human resource advisor krysta pancreatitis (HCC) (Primary Dx) Start: 03-14-2024 End: 03-14-2024 Orders Only Gia Calloway MD Work Phone: [facility] DEPARTMENT Comment on above: Alcohol-induced human resource advisor krysta pancreatitis (HCC) (Primary Dx) Start: 03-13-2024 End: 03-13-2024 Telephone encounter Gia Calloway MD Work Phone: [facility] DEPARTMENT Comment on above: Patient Update (Surg migue cancellation) Start: 03-12-2024 End: 03-13-2024 Phys/qhp telephone evaluation 11-20 min Gia Calloway MD Work Phone: [facility] DEPARTMENT Comment on above: Congestive heart justino lure, unspecified HF chronicity, unspecified heart failure type (HCC) (Primary Dx) Start: 03-12-2024 End: 03-12-2024 Telephone encounter Tracey Brown APRN.CNP Work Phone: [facility] DEPARTMENT Comment on above: Orders Start: 03-08-2024 End: 03-08-2024 Orders Only Gia Calloway MD Work Phone: [facility] DEPARTMENT Comment on above: Chronic pancreatitis , unspecified pancreatitis type (HCC) (Primary Dx) Chronic alcoholic pa ncreatitis (HCC) (Primary Dx); Type 2 diabetes mellitus without complication, unspecified whether termite exterminator helper insulin use (HCC); Moderate smoker (20 or less per day); Hyperlipidemia, unspecified hyperlipidemia type; Nicotine use disorder, F17.2; Depression, unspecified depression type; Recurrent abdominal pain; Controlled type 2 diabetes mellitus without complication, unspecified whether termite exterminator helper insulin use (HCC) Start: 03-06-2024 End: 03-06-2024 Emergency department patient visit MAGO ELLIOTT Facility:[id number] Start: 03-05-2024 End: 03-05-2024 Office outpatient visit 40 minutes Gia Calloway MD Work Phone: [facility] DEPARTMENT Comment on above: Chronic pancreatitis , unspecified pancreatitis type (HCC) (Primary Dx) Start: 03-05-2024 End: 03-05-2024 Orders Only Gia Calloway MD Work Phone: [facility] DEPARTMENT Comment on above: Pancreatic mass (Kelsy glenda Dx) Start: 02-23-2024 End: 02-23-2024 Patient encounter procedure Jewel Fuentes MD Work Phone: Urology Comment on above: Prostate nodule (Kesly glenda Dx); Prostate cancer (HCC) Start: 02-23-2024 End: 02-23-2024 ambulatory JEWEL FUENTES Facility:[id number] Start: 02-15-2024 End: 02-15-2024 Subsequent hospital visit by physician Ethan Diallo MD Work Phone: [facility] Comment on above: Pancreatic mass [K86 .89] Start: 02-09-2024 End: 02-09-2024 Patient encounter procedure Jewel Fuentes MD Work Phone: Urology Comment on above: Prostate nodule (Kelsy glenda Dx) Start: 02-09-2024 End: 02-09-2024 ambulatory JEWEL FUENTES Facility:[id number] Start: 02-05-2024 Telephone encounter Ethan lujan MD Work Phone: [facility] DEPARTMENT Comment on above: Appointment Start: 01-16-2024 End: 01-16-2024 Office outpatient new 60 minutes Gia Calloway MD Work Phone: [facility] SURGERY DEPARTMENT Comment on above: Pancreatic mass (Kelsy glenda Dx); Alcohol-induced acute pancreatitis, unspecified complication status Start: 01-12-2024 End: 01-12-2024 Patient encounter procedure Jewel Fuentes MD Work Phone: Urology Comment on above: Benign prostatic hyp erplasia, unspecified whether lower urinary tract symptoms present (Primary Dx) Start: 01-12-2024 End: 01-12-2024 ambulatory JEWEL FUENTES Facility:[id number] Start: 12-31-2023 Telephone encounter Bob callahan MD Work Phone: [facility] Comment on above: Hospital Follow Up ( ) Start: 12-18-2023 End: 12-21-2023 Evaluation and management of inpatient DR YOLANDA BYRD MD [facility] Start: 12-05-2023 End: 12-05-2023 ambulatory VERITO BRISCOE PA-C Facility:A Start: 12-05-2023 End: 12-05-2023 Patient encounter procedure VERITO BRISCOE PA-C [facility] Start: 12-04-2023 End: 12-04-2023 Emergency department patient visit BUCK BOATENG DO [facility] Start: 11-22-2023 End: 2023 [facility] Start: 11-12-2023 End: 11-22-2023 Evaluation and management of inpatient RED VALENZUELA MD [facility] Start: 09-19-2023 End: 09-19-2023 ambulatory [facility] Work Phone: Start: 09-19-2023 End: 09-19-2023 Patient encounter procedure [facility] Work Phone: Start: 05-04-2023 End: 05-04-2023 ambulatory [facility] Work Phone: Start: 05-04-2023 End: 05-04-2023 Patient encounter procedure [facility] Start: 01-04-2023 End: 01-05-2023 Emergency department patient visit Dr. yT Pepper Work Phone: [facility]-Emergency Department Work Phone: Start: 12-06-2022 End: 12-07-2022 Emergency department patient visit Dr. Ty Pepper Work Phone: [facility]-Emergency Department Work Phone: Start: 11-14-2022 End: 11-14-2022 Emergency department patient visit Dr. Ty Pepper Work Phone: [facility]-Emergency Department Work Phone: Start: 11-14-2022 Non-patient / Non-visit Dr. Fahad Pepper Work Phone: [facility] Work Phone: Start: 11-13-2022 Non-patient / Non-visit Dr. Fahad Pepper Work Phone: [facility] Work Phone: Start: 11-12-2022 Non-patient / Non-visit Dr. Fahad Pepper Work Phone: [facility] Work Phone: Start: 11-11-2022 Non-patient / Non-visit Dr. Fahad Pepper Work Phone: [facility] Work Phone: Start: 11-10-2022 Non-patient / Non-visit Dr. Fahad Pepper Work Phone: [facility] Work Phone: Start: 11-09-2022 Non-patient / Non-visit Dr. Fahad Pepper Work Phone: [facility] Work Phone: Start: 11-08-2022 End: 11-14-2022 Evaluation and management of inpatient Dr. Ty Pepper Work Phone: [facility]-Medical Surgical 3 Work Phone: Start: 11-08-2022 End: 11-08-2022 ambulatory MISTI MD [facility] Start: 01-21-2022 End: 01-21-2022 Emergency department patient visit LEE RAPHAEL [facility] Procedures Date Procedure Procedure Detail Performing Clinician Start: 02-27-2025 Hepatitis C antibody measurement Mago Elliott MD Work Phone: Comment on above: Reactive: Presumptiv e evidence of antibodies to HCV. Follow CDC recommendations for supplemental testing.Non-Reactive: Antibodies to HCV were not detected; does not exclude the possibility of exposure to HCVReactive Results are presumptive evidence of antibodies to HCV. Follow CDC recommendations for supplemental testing.Order confirmation testing: HCV Quant by PCR testing - HCVPCR #[id number] Non Reactive: < 0.8 Equivocal: >/= 0.8 to < 1.0 Reactive: >/= 1.0The CDC requires that a reactive/equivocal HCV antibody result be sent out for confirmation. HCV Quant by PCR testing. Start: 06-11-2024 Follow-up visit Follow Up GIA CALLOWAY Start: 06-03-2024 Myocardial spect mul tiple studies Kevin Molina MD Work Phone: Start: 04-12-2024 Ecg routine ecg w/le ast 12 lds w/i&r Kevin Molina MD Work Phone: Start: 03-29-2024 Echo tthrc r-t 2d w/ wom-mode compl spec&colr d Tracey Brown 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 AIRBRUSH Work Phone: Start: 03-29-2024 LVEF ECHO Tracey serra 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 AIRBRUSH Work Phone: Start: 02-15-2024 Esophagoscp rig levy soral hypopharynx crv esoph Gia Calloway MD Work Phone: Start: 02-15-2024 Gluc bld gluc mntr d ev cleared fda spec home use Ethan Diallo MD Work Phone: Start: 02-09-2024 Urnls dip stick/tabl et rgnt auto w/o microscopy Jewel Fuentes MD Work Phone: Start: 01-12-2024 Urnls dip stick/tabl et rgnt auto w/o microscopy Jewel Fuentes MD Work Phone: Start: 09-19-2023 Radiologic examinati on of knee Start: 01-04-2023 Plain chest X-ray Dr. Freedom Pepper Work Phone: Start: 01-04-2023 CT cervical spine wi thout contrast Dr. Ty Pepper Work Phone: Start: 01-04-2023 Plain X-ray of shoulder Dr. Ty Pepper Work Phone: Start: 01-04-2023 CT of head without contrast Dr. Ty Pepper Work Phone: Start: 12-06-2022 Plain chest X-ray Dr. Freedom Pepper Work Phone: Start: 11-08-2022 Urinalysis MISTI PA TEL Comment on above: Result Comment: URIN ALYSIS Performed By: #### [id number] ####[facility],[address] [place] [address] Operation on pancreas VERITO BRISCOE PA-C Plan of Treatment Date Care Activity Detail Author Start: 03-22-2034 Urine microalbumin profile DTaP,Tdap,Td Vaccine (3 - Td or Tdap) [facility] Start: 08-24-2032 Urine microalbumin profile DTaP,Tdap,Td Vaccine (2 - Td or Tdap) [facility] Start: 05-15-2029 Prostate specific antigen measurement Prostate Cancer Screening Discussion [facility] Start: 04-25-2029 Prostate specific antigen measurement Prostate Cancer Screening Discussion [facility] Start: 04-25-2025 Hepatitis B surface antibody level LDL Cholesterol [facility] Start: 02-27-2025 Hepatitis B core antibody measurement, IgM type [facility] Start: 02-24-2025 Influenza vaccination Influenza Vaccine (Season Ended) [facility] Start: 10-29-2024 End: 10-29-2024 Patient encounter procedure [facility] Comment on above: 3 Mth f/u 3 Month Follow up, S ystolic Dysfunction Without Heart Failure. as Start: 10-03-2024 End: 10-03-2024 Patient encounter procedure 10/03/2024 1:45 PM EDT Office Visit [facility] SURGERY DEPARTMENT 1 [facility] 3rd Floor [place], [place] [phone] Gia Calloway MD 1 [place] [address] (Fax) F/U *Needs repeat PETH [facility] DEPARTMENT Comment on above: F/U *Needs repeat [facility] Start: 10-01-2024 End: 10-01-2024 Patient encounter procedure 10/01/2024 9:00 AM EDT Office Visit [facility] SURGERY DEPARTMENT 1 [facility] 3rd Floor [place], [place] [phone] Gia Calloway MD 1 [place] [address] Follow up to discuss surgery [facility] DEPARTMENT Comment on above: Follow up to discuss surgery Start: 09-19-2024 End: 09-19-2024 Patient encounter procedure 09/19/2024 8:00 AM EDT Office Visit [facility] Endocrinology [address] [place], [place] [phone] Amrik Belle MD [address] [place], [place] [phone] 2 mo F/U DM [facility] Endocr[facility]ology Comment on above: 2 mo F/U DM Start: 09-04-2024 End: 09-04-2024 Patient encounter procedure 09/04/2024 1:15 PM EDT Office Visit [facility] [address] [place], [place] [address] Evans Mccloud MD [address] [place], [place] [phone] Follow Up Pain Management Comment on above: Follow Up Start: 07-25-2024 End: 10-24-2024 PHOSPHATIDYLETHANOL (PETH) PHOSPHATIDYLETHANOL (PETH) Lab Routine Chronic pancreatitis, unspecified pancreatitis type (HCC) Expected: 07/25/2024, Expires: 10/24/2024 [facility] Work Phone: Comment on above: Expected: 07/25/2024, Expires: Start: 07-25-2024 End: 07-25-2024 Admission to same day surgery center 07/25/2024 9:00 AM EST [facility] SURGERY DEPARTMENT 1 [facility] 3rd [place] [address] Shoshana Barraza PA-C 1 [place], [place] [id number] 6 WEEK F/U [facility] SURGERY DEPARTMENT Comment on above: 6 WEEK F/U Start: 07-19-2024 End: 07-19-2024 Patient encounter procedure 07/19/2024 4:20 PM EST Office Visit [facility] [address] [place] [address] Amrik Belle MD [address] [place] [address] [phone] unstable sugar [facility] Comment on above: unstable sugar Start: 07-10-2024 End: 10-09-2024 TOXASSURE FLEX 23, URINE TOXASSURE FLEX 23, URINE Lab Routine Chronic pancreatitis, unspecified pancreatitis type (HCC) Expected: 07/10/2024, Expires: 10/09/2024 [facility] Work Phone: Comment on above: Expected: 07/10/2024, Expires: Start: 06-29-2024 Hemoglobin A1c measurement [facility]C [facility] Start: 06-26-2024 Advance Directive Discussion Advance Directive Discussion [facility] Start: 06-11-2024 End: 06-11-2024 Patient encounter procedure [facility] DEPARTMENT Comment on above: F/U Cardiac testing, with labs Start: 06-06-2024 End: 06-06-2024 ambulatory 06/06/2024 7:30 [address] EST [address] [facility] Draw Station [address] [place] [address] [facility] Station Start: 06-03-2024 End: 06-03-2024 Patient encounter procedure 06/03/2024 9:00 AM EST Appointment [facility] 1 [place] [address] Systolic dysfunction without heart failure [I51.89] [facility] Comment on above: Systolic dysfunction without heart failu re [I51.89] Start: 05-31-2024 End: 05-31-2024 Admission to same day surgery center 05/31/2024 11:00 AM EST - 05/31/2024 2:00 PM EST Surgery [facility] 1 [facility] [place] [address] [place] [address] [phone] CELIAC PLEXUS BLOCK [facility] Comment on above: CELIAC PLEXUS BLOCK Start: 05-31-2024 End: 05-31-2024 Dstrj neurolytic w/wo rad monitor celiac plexus DESTRUCTION VIA INJECTION CELIAC PLEXUS Alcohol-induced chronic pancreatitis (HCC) 05/31/2024 11:00 AM EST [facility] Start: 05-31-2024 Subsequent hospital visit by physician 05/31/2024 11:00 AM EST Hospital Encounter [facility] 1 [place] [address] [place] [address] [address] Alcohol-induced chronic pancreatitis (HCC) [K86.0] [facility] Comment on above: Alcohol-induced chronic pancreatitis (HC C) [K86.0] Start: 05-30-2024 End: 08-29-2024 PHOSPHATIDYLETHANOL (PETH) PHOSPHATIDYLETHANOL (PETH) Lab Routine Alcohol-induced acute pancreatitis without infection or necrosis Expected: 05/30/2024 (Approximate), Expires: 08/29/2024 [facility] Work Phone: Comment on above: Expected: 05/30/2024 (Approximate), Expi res: 08/29/2024 Start: 05-27-2024 End: 05-27-2024 Patient encounter procedure 05/27/2024 11:40 AM EST Office Visit [facility] [address] [place] [address] Amrik Belle MD [address] [place] [address] 2 mo F/U DM [facility] Comment on above: 2 mo F/U DM Start: 05-25-2024 Hemoglobin A1c measurement HbA1C [facility] Start: 05-25-2024 End: 08-24-2024 Prostate specific Ag [Mass/volume] in Serum or Plasma PROSTATE-SPECIFIC ANTIGEN DIAGNOSTIC Lab Routine Prostate cancer (HCC) Expected: 05/25/2024, Expires: 08/24/2024 [facility] Work Phone: Comment on above: Expected: 05/25/2024, Expires: Start: 05-24-2024 End: 05-24-2024 Patient encounter procedure 05/24/2024 8:00 AM EST Office Visit Urology [address] [place] [address] Jewel Fuentes MD [address] [place] [address] 3 month f/u Urology Comment on above: 3 month f/u Start: 04-30-2024 End: 04-30-2024 Admission to same day surgery center [facility] SURGERY DEPARTMENT Comment on above: Discuss surgery, labs on 04/25 Discuss surgery, lab s on 04/25 (Called and reminded patient to get labs on 04/23) Start: 04-26-2024 End: 07-26-2024 Basic metabolic 2000 panel - Serum or Plasma BASIC METABOLIC PANEL Lab Routine Systolic dysfunction without heart failure Expected: 04/26/2024, Expires: 07/26/2024 [facility] Work Phone: Comment on above: Expected: 04/26/2024, Expires: Start: 04-25-2024 End: 07-02-2024 PHOSPHATIDYLETHANOL (PETH) PHOSPHATIDYLETHANOL (PETH) Lab Routine Alcohol-induced chronic pancreatitis (HCC) Expected: 04/25/2024, Expires: 07/02/2024 [facility] Work Phone: Comment on above: Expected: 04/25/2024, Expires: Start: 04-18-2024 End: 04-18-2024 Admission to same day surgery center 04/18/2024 8:00 AM EDT - 04/18/2024 6:15 PM EDT Surgery [facility] 1 [place] [address] Gia Calloway MD 1 [facility] [address]rd [place], [place] [phone] [facility] Comment on above: WHIPPLE Start: 04-18-2024 End: 04-18-2024 Pncrtect prox stot w/pancreatojejunostomy WHIPPLE PROCEDURE, WITH PANCREATOJEJUNOST Pancreatic mass 04/18/2024 8:00 AM EDT [facility] OR Start: 04-18-2024 Subsequent hospital visit by physician 04/18/2024 8:00 AM EDT Hospital Encounter [facility] 1 [place] [address] Gia Calloway MD 1 [facility] [address]rd [place], [place] [phone] Pancreatic mass [K86.89] [facility] Comment on above: Pancreatic mass [K86.89] Start: 04-12-2024 End: 04-12-2024 Patient encounter procedure [facility] Comment on above: new pat pre op Whipple procedure TBD by Dr. 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 Elli chang/ tnj Start: 04-12-2024 End: 07-12-2024 Lipid 1996 panel - Serum or Plasma LIPID PANEL BASIC Lab Routine Hyperlipidemia, unspecified hyperlipidemia type Expected: 04/12/2024, Expires: 07/12/2024 [facility] Comment on above: Expected: 04/12/2024, Expires: Start: 04-08-2024 End: 04-08-2024 Diabetic care education 04/08/2024 9:00 AM EDT [facility] Diabetes Education [place] [address] [facility] [place] [address] Dl Jamison, RD 1 [facility] [place] [address] type 2 preparing for pancreactectomy [facility] Diabetes [facility] Comment on above: type 2 preparing for pancreactectomy Start: 04-05-2024 End: 04-05-2024 ambulatory 04/05/2024 10:00 AM EDT PAT Pre Surgical Testing [address] [place] [address] WHIPPLE Pre Surgical Testing Comment on above: WHIPPLE Start: 04-05-2024 End: 04-05-2024 Anesthesia consultation 04/05/2024 10:00 AM EDT PAT Pre Surgical Testing [address] [place] [address] ANESTHESIA WANTS CARDIAC CLEARANCE . SEE SOC NOTE Pre Surgical Testing Comment on above: ANESTHESIA WANTS CARDIAC CLEARANCE . SEE SOC NOTE Start: 03-29-2024 End: 03-29-2024 Patient encounter procedure 03/29/2024 10:00 AM EDT Appointment [facility] Cardiology [address] [place] [address] Diastolic congestive heart failure, unspecified HF chronicity (HCC) [I50.30] [facility] Cardiology Comment on above: Diastolic congestive heart failure, unsp ecified HF chronicity (HCC) [I50.30] Start: 03-29-2024 End: 03-29-2024 ambulatory 03/29/2024 9:30 [address] EDT [address] [facility] Draw Station [address] [place] [address] Alcohol-induced chronic pancreatitis (HCC) [K86.0] [facility] Draw Station Comment on above: Alcohol-induced chronic pancreatitis (HC C) [K86.0] Start: 03-15-2024 End: 06-14-2024 CBC panel - Blood by Automated count COMPLETE BLOOD COUNT Lab Routine Alcohol-induced chronic pancreatitis (HCC) Expected: 03/15/2024, Expires: 06/14/2024 [facility] Work Phone: Comment on above: Expected: 03/15/2024, Expires: Start: 03-15-2024 End: 06-14-2024 Comprehensive metabolic 2000 panel - Serum or Plasma COMPREHENSIVE METABOLIC PANEL Lab Routine Alcohol-induced chronic pancreatitis (HCC) Expected: 03/15/2024, Expires: 06/14/2024 [facility] Comment on above: Expected: 03/15/2024, Expires: Start: 03-15-2024 End: 06-14-2024 PHOSPHATIDYLETHANOL (PETH) PHOSPHATIDYLETHANOL (PETH) Lab Routine Alcohol-induced chronic pancreatitis (HCC) Expected: 03/15/2024, Expires: 06/14/2024 [facility] Comment on above: Expected: 03/15/2024, Expires: Start: 03-12-2024 End: 03-12-2024 Admission to same day surgery center 03/12/2024 4:00 PM EDT [facility] GENERAL SURGERY DEPARTMENT 1 [facility] [address]rd [place], [place] [phone] Gia Calloway MD 1 [facility] [address]rd [place], [place] [phone] discuss surgery 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 SURGERY DEPARTMENT 1 [facility] [address] [place], [place] [phone] Tracey Brown, KAREN.PAINTER [employer]BRUSH [address] [phone] SOC - Open Whipple [facility] DEPARTMENT Comment on above: SOC - Open Whipple Start: 03-05-2024 End: 03-05-2024 Patient encounter procedure 03/05/2024 3:00 PM EDT Office Visit [facility] SURGERY DEPARTMENT 1 [facility] [address] [place], [place] [phone] Gia Calloway MD 1 [facility] [address]rd [place], [place] [phone] Fu EUS [facility] DEPARTMENT Comment on above: Fu EUS Start: 02-25-2024 Covid-19 Vaccine ( season) Covid-19 Vaccine ( season) [facility] Start: 02-25-2024 Covid-19 Vaccine ( season) Covid-19 Vaccine () [facility] Start: 02-25-2024 Influenza vaccination Influenza Vaccine (#1) [facility] Start: 02-23-2024 End: 02-23-2024 Patient encounter procedure 02/23/2024 8:40 AM EDT Office Visit Urology [facility] [place] [address] Jewel Fuentes MD [address] [address] 2 week follow up, prostate biopst results Urology Comment on above: 2 week follow up, prostate biopst result s Start: 02-15-2024 End: 02-15-2024 Patient encounter procedure 02/15/2024 10:00 AM EDT Appointment [facility] 1 [place] [address] Ethan Diallo MD [address] [place] [address] [facility] Start: 02-09-2024 End: 02-09-2024 Patient encounter procedure 02/09/2024 8:20 AM EDT Office Visit Urology [facility] [place] [address] Jewel Fuentes MD [address] [place] [address] pnb Urology Comment on above: pnb Start: 01-16-2024 End: 01-16-2024 Patient encounter procedure 01/16/2024 10:45 AM EDT Office Visit [facility] SURGERY DEPARTMENT 1 [facility] [address] [place], [place] [phone] Gia Calloway MD [address] [phone] Pancreatic lesion, CBD stricture and stent, hx liver abscess [facility] SURGERY DEPARTMENT Comment on above: Pancreatic lesion, CBD stricture and freya nt, hx liver abscess Start: 01-12-2024 End: 01-12-2024 Patient encounter procedure 01/12/2024 8:20 AM EDT Office Visit Urology [address] [place] [address] Jewel Fuentes MD [address] [place] [address] cysto per discharge [facility] Urology Comment on above: cysto per discharge [facility] Start: 11-29-2023 Advance Directive Discussion Advance Directive Discussion [facility] Start: 11-09-2023 Covid-19 Vaccine ( season) Covid-19 Vaccine () [facility] Start: 11-14-2022 Patient discharge [facility] Start: 11-11-2022 End: 11-12-2022 [facility] Start: 11-10-2022 Chart related administrative procedure [facility] Start: 11-08-2022 Assessment of risk of venous thromboembolism [facility] Start: 11-08-2022 Care regimes management [facility] Start: 11-08-2022 Catheterization of vein [facility] Start: 11-08-2022 Deep breathing and coughing exercises [facility] Start: 11-08-2022 Fall prevention [facility] Start: 11-08-2022 Inhalation therapy procedure [facility] Start: 11-08-2022 Introduction of urinary catheter [facility] Start: 11-08-2022 Medication education [facility] Start: 11-08-2022 Notification of physician [facility] Start: 11-08-2022 Provision of activity privileges [facility] Start: 11-08-2022 Referral to service [facility] Start: 11-08-[address] [facility] Start: 11-08-2022 [facility] Start: 11-08-2022 Following clinical pathway protocol [facility] Start: 11-08-2022 Admission procedure [facility] Start: 11-08-2022 Patient referral to dietitian [facility] Start: 08-02-2021 Hepatitis B surface antibody level LDL Cholesterol [facility] Start: 12-15-2020 Screening for malignant neoplasm of lung Lung Cancer Screening [facility] Start: 11-08-2020 Prostate specific antigen measurement Prostate Cancer Screening Discussion [facility] Start: 06-14-2019 Screening for malignant neoplasm of colon [facility] Start: 05-04-2017 Pneumococcal Vaccine: 50+ (2 of 2 - PCV) Pneumococcal Vaccine: 50+ (2 of 2 - PCV) [facility] Start: 05-04-2017 Pneumococcal Vaccine: 65+ (2 of 2 - PCV) Pneumococcal Vaccine: 65+ (2 of 2 - PCV) [facility] Start: 2008 Shingrix Vaccine (1 of 2) Shingrix Vaccine (1 of 2) [facility] Start: 11-29-2003 Screening for malignant neoplasm of colon [facility] Start: 1976 Annual PCP Team Chronic Disease Visit Annual PCP Team Chronic Disease Visit [facility] Start: 1976 Anxiety Screening Anxiety Screening [facility] Start: 1976 Hepatitis C screening Hepatitis C Screening [facility] Start: 1968 Diabetic foot examination Diabetic Foot Exam [facility] Start: 1968 Glaucoma screening Dilated Retinal Exam [facility] Start: 1968 Hepatitis B screening Urine Albumin:Creatinine Ratio [facility] Start: 1958 Abdominal aortic aneurysm screening Abdominal Aortic Aneurysm Screening [facility] CYTOLOGY NON-SHIP MANAGER [facility] Work Phone: Comment on above: Release Upon Ordering for 1 Occurrences starting 02/15/2024, 1 completed End: 03-12-2025 Echocardiography ECHO Cardiology Routine Diastolic congestive heart failure, unspecified HF chronicity (HCC) 1 Occurrences starting 03/12/2024 until 03/12/2025 [facility] Work Phone: Comment on above: 1 Occurrences starting 03/12/2024 until 03/12/2025 End: 01-15-2025 EGD - THERAPEUTIC, EUS, OR TUBE INTERVENTIONS EGD - THERAPEUTIC, EUS, OR TUBE INTERVENTIONS Endoscopy Routine Pancreatic mass 1 Occurrences starting 01/16/2024 until 01/15/2025 [facility] Work Phone: Comment on above: 1 Occurrences starting 01/16/2024 until 01/15/2025 Hepatitis B virus co re Ab [Presence] in Serum [facility] Hepatitis C virus ge notype [Identifier] in Blood by GIGI with probe detection [facility] Interventional radio logy Consult note IR INTERVENTIONAL RADIOLOGY CONSULT Radiology Routine Alcohol-induced chronic pancreatitis (HCC) Ordered: 05/16/2024 [facility] Work Phone: Comment on above: Ordered: 05/16/2024 End: 05-12-2025 NM Heart Perfusion W multiple states of exercise NM CARDIAC PERF STRESS/EXERCISE Radiology Routine Systolic dysfunction without heart failure 1 Occurrences starting 04/12/2024 until 05/12/2025 [facility] Comment on above: 1 Occurrences starting 04/12/2024 until 05/12/2025 Patient Education [facility] Work Phone: Patient referral [facility] Work Phone: PCR for Hepatitis C [facility] Pncrtect prox stot w/pancreatojejunostomy WHIPPLE PROCEDURE, WITH PANCREATOJEJUNOST Pancreatic mass [place] OR Serum testosterone measurement [facility] SURGICAL PATHOLOGY SURGICAL PATH OLOGY Lab Routine Prostate nodule Ordered: 02/09/2024 [facility] Work Phone: Comment on above: Ordered: 02/09/2024 Testosterone Free [Mass/volume] in Serum or Plasma [facility] Testosterone measurement [facility] Immunizations Immunization Date Immunization Notes Care Provider Fa cility 03-22-2024 tetanus toxoid, redu aristides diphtheria toxoid, and acellular pertussis vaccine, adsorbed 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 Brown 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 [employer] Work Phone: [facility] 07-11-2023 influenza virus vacc ine, unspecified formulation Bob Valdez MD Work Phone: [facility] 09-19-2020 COVID-19 original vaccine, full dose, monovalent (MODERNA) Bob Valdez MD Work Phone: [facility] 08-22-2020 COVID-19 original vaccine, full dose, monovalent (MODERNA) Bob Valdez MD Work Phone: [facility] 04-29-2018 influenza, seasonal, injectable Bob Valdez MD Work Phone: [facility] 04-26-2018 influenza, seasonal, injectable Bob Valdez MD Work Phone: [facility] 04-05-2017 influenza, seasonal, injectable Bob Valdez MD Work Phone: [facility] 05-04-2016 influenza, seasonal, injectable Bob Valdez MD Work Phone: [facility] 05-04-2016 pneumococcal polysaccharide vaccine, 23 valent Bob Valdez MD Work Phone: [facility] Payers Date Payer Category Payer Self-pay 2023 Medicare [id number] 2022 Medicare [employer] MEDICARE [employer] GOLD PLUS [id number] 2022-Present [phone] [address] [address] [place] [address] O [id number] 2022 Medicare (Managed Care) [employer]NA G OLD PLUS [id number] 2022 Medicare [id number] 1958 Unknown [id number]. [id number] 1958 Unknown [id number] [id number]. 2.651 1958 Unknown [id number] [id number]. 2.627 1958 Unknown [id number] [id number]. 2.627 1958 Unknown [id number] [id number]. 2.627 1958 Unknown [id number] [id number]. 2.627 1958 Unknown [id number] [id number]. 2.1245 Unknown [id number] [id number]. 2.462 Unknown [id number] 2.16.840.1.878413.3.579. 2.462 Unknown [id number] [id number]. 2.462 Unknown [id number] [id number]. 2.462 Social History Date Type Detail Facility Start: 01-04-2023 End: 01-04-2023 Tobacco smoking status OHIS Unknown if ever smoked [facility] Start: 1960 Sex Assigned At Male [facility] Tobacco smoking status No Smokin g Status Entered [facility] Start: 12-05-2023 Tobacco smoking status Heavy t obacco smoker (finding) [facility] Start: 07-12-2023 End: 10-16-2023 Tobacco smoking status NHIS Smokes tobacco daily [facility] History of tobacco use Cigarette Smoker C [facility] Start: 06-20-2023 End: 07-12-2023 Cigarettes smoked current (pack per day) - Reported 1 [facility] Start: 07-12-2023 Tobacco use and exposure Smoke less tobacco non-user [facility] Start: 07-12-2023 End: 01-12-2024 Alcohol intake Ex-drinker (finding) [facility] Start: 06-20-2023 End: 01-01-2024 [facility] [employer] [facility] Has the Catalyze, or Dipity threatened to shut off services in your home in past 12Mo No [facility] (I/We) worried [facility] (my/our) food would run out before (I/we) got money to buy more. Never true [facility] In the past 12 month s, has lack of transportation kept you from medical appointments or from getting medications? No [facility] Start: 07-12-2023 Tobacco Comment As per pt "I s moke 12-15 smokes a day, but when I drink I know its way more." [facility] Start: 1960 Sex Assigned At Not on file C [facility] Start: 01-16-2024 End: 07-10-2024 Alcohol intake Current drinker of alcohol (finding) [facility] Start: 01-16-2024 Alcohol Comment 1 pint [facility] Start: 02-15-2024 Tobacco use and exposure Forme r smokeless tobacco user [facility] History of tobacco use Snuff User [facility] Start: 02-15-2024 Alcohol Comment 1 pint liquor per week [facility] Start: 03-08-2024 Alcohol Comment 1 pint liquor per week, depends on weeks [facility] Start: 10-08-2024 End: 10-22-2024 Sex Male (finding) [facility] Medical Equipment Procedure Code Equipment Code Equipment Origin al Text Equipment Identifier Dates Stent Wallflex 1 0mm 8.5fr Permalume 60mm Biliary Rapid Exchange Self Expand - [id number] Start: 01-02-2024 Pen Needle, Diab etic 29 gauge needle Start: 11-14-2022 Pen Needle, Diab etic 29 gauge needle Start: 11-14-2022 Pen Needle, Diab etic 29 gauge needle Start: 11-14-2022 Goals Date Patient Goal Desired Activity /State Personal health goal Functional Status Date Assessment Result Facility 01-03-2024 Are you deaf, or do you have serious difficulty hearing No 01/03/2024 4:43 PM EDT Antoinette Garibay, PATSY No [facility] 01-03-2024 Are you blind, or do you have serious difficulty seeing, even when wearing glasses No 01/03/2024 4:43 PM EDT Antoinette Garibay, PATSY [facility] 01-03-2024 Do you have serious difficulty walking or climbing stairs No 01/03/2024 4:43 PM EDT Antoinette Garibay, PATSY [facility] 01-03-2024 Do you have difficul ty dressing or bathing No 01/03/2024 4:43 PM EDT Antoinette Garibay, PATSY [facility] 01-03-2024 Because of a physica l, mental, or emotional condition, do you have difficulty doing errands alone such as visiting a physician's office or shopping No 01/03/2024 4:43 PM EDT Antoinette Garibay, PATSY [facility] 12-21-2023 Functional Status Done [facility] 12-21-2023 Functional Status Repositions self [facility] 12-21-2023 Functional Status [facility] 12-21-2023 Functional Status Door open, Room check performed [facility] 12-21-2023 Functional Status [facility] 12-21-2023 Functional Status [facility] 12-21-2023 Functional Status [facility] 12-20-2023 Functional Status [facility] 12-20-2023 Functional Status [facility] 12-20-2023 Functional Status [facility] 12-20-2023 Functional Status [facility] 12-19-2023 Functional Status Single level home [facility] 12-19-2023 Functional Status [facility]-19-2023 [facility] Status [facility] 12-05-2023 Functional Status Activity Arben tance Minimum assistance [facility] 12-05-2023 Functional Status Less than 8 hours [facility] 12-05-2023 Functional Status [facility] 12-04-2023 Functional Status Independent [facility] 12-04-2023 Functional Status Standard Safet y ID band on, Allergy Band on, Call device within reach, Bed in low position [facility] 11-22-2023 Functional Status Other: 7am-d/c [facility] 11-22-2023 Functional Status confirmed [facility]-22-[facility]23 Functional Status Jose Daniel [facility] 11-22-2023 Functional Status Non-Slip footw ear, Room check performed [facility] 11-22-2023 Functional Status [facility] Functional Status [facility]-21-[facility]23 Functional Status 90 [facility] 11-21-2023 Functional Status Up to Chair Si tting on edge of bed [facility] 11-21-2023 Functional Status [facility] 11-21-2023 Functional Status [facility] 11-21-2023 Functional Status 100 [facility] 11-21-2023 Functional Status [facility] 11-21-2023 Functional Status [facility] 11-20-2023 Functional Status [facility] 11-20-2023 Functional Status [facility] 11-20-2023 Functional Status Morning Snack Percent 5 0 [facility] 11-20-2023 Functional Status [facility] 11-20-2023 Functional Status [facility] 11-19-2023 Functional Status [facility] 11-19-2023 Functional Status [facility] 11-19-2023 Functional Status [facility] 11-19-2023 Functional Status Supervision [facility] 11-18-2023 Functional Status [facility] 11-17-2023 Functional Status [facility] 11-16-2023 Functional Status [facility] 11-15-2023 Functional Status [facility] 11-14-2023 Functional Status [facility] 11-13-2023 Functional Status Single level home [facility] 11-13-2023 Functional Status None [facility] 11-13-2023 Functional Status Mod I [facility] 11-12-2023 Functional Status Sensory Defici ts Hearing deficit, left ear, Hearing deficit, right ear [facility] 11-12-2023 Functional Status Environmental Safety Implemented Adequate room lighting, Bed in low position, Call device within reach, Wheels locked [facility] 11-14-2022 Functional status Ambulates [facility] Work Phone: Mental Status Date Assessment Result Facility 01-03-2024 Because of a physica l, mental, or emotional condition, do you have serious difficulty concentrating, remembering, or making decisions 01/03/2024 4:43 PM EDT Antoinette Garibay RN [facility] 12-21-2023 Mental Status Orientation Oriented x 4 [facility] 12-20-2023 Mental Status [facility] 12-20-2023 Mental Status [facility] 12-19-2023 Mental Status Orientation Asse ssment Oriented x 4 [facility] 12-19-2023 Mental Status [facility] 12-05-2023 Mental Status Oriented x 4 [facility] 12-04-2023 Mental Status Orientation Oriented x 4 [facility] 12-04-2023 Mental Status [facility] 11-22-2023 Mental Status Oriented x 4 [facility] 11-22-2023 Mental Status [facility] 11-22-2023 Mental Status [facility] 11-22-2023 Mental Status [facility] 12-06-2022 Cognitive function Level Of Cons ciousness Awake;Alert;Appropriate;Fol lows Commands [facility] Work Phone: 11-14-2022 Cognitive function Appropriate;C ooperative;Khris kative [facility] Work Phone: Clinical Notes 01-05-2023 to 01-19-2025 Telephone Encounter - Tracey Brown APRN.CNP - 11/08/2024 10:51 AM EDTTelephone Encounter - Tracey Brown APRN.CNP - 11/08/2024 10:51 AM Shoshana Krishnan PA-C - 07/25/2024 10:07 AM EST Note Date & Type Note Facility 01-19-2025 Note HNO ID: [id number] Author: RASHAWN AMOR Tech Service: ? Author Type: Technologist Type: Progress Notes Filed: 01/19/2025 18:31 Note Text: Radiology Service Progress Note PATIENT NAME: Kyle Mcdaniel DATE OF SERVICE: January 19, 2025 TIME: 6:31 PM PATIENT IDENTITY VERIFICATION COMPLETED USING TWO (2) IDENTIFIERS: Name and Date of confirmed by patient verbally and Name and Date of confirmed by identification band. FALL SCREENING: Has the patient had 2 falls in the last year or 1 fall with injury or currently using an Ambulatory Assistive Device (Walker, Cane, Wheelchair, Crutches, etc.)? No PATIENT GENDER DATA: Assigned male at PATIENT RELEVANT IMPLANT DATA REVIEWED: Yes PATIENT PRESENTS WITH AN IMPLANTABLE OR ATTACHED FINANCIAL COACH: No RADIOLOGY DEPARTMENT: CT; Exam(s) Completed: Brain PERIPHERAL IV DATA: Not applicable SIGNED BY: Rashawn Amor BS(R)(CT) January 19, 2025 6:[address] [facility] 11-08-2024 Telephone encounter Note Summary: SOC Updates Patient is not scheduled for surgery nor has upcoming appts with surgery staff. Will remove from call list. -Tracey Brown APRN.PAINTER AIRBRUSH [facility] 11-08-2024 Miscellaneous Notes Summary: SOC Updates Patient is not scheduled for surgery nor has upcoming appts with surgery staff. Will remove from call list. -Tracey Brown APRN.CNP documented in this encounter [facility] 09-04-2024 Telephone encounter Note Called to Reschedule missed appointment (09/04/24) with Dr. Zoila Mccloud. [facility] 09-04-2024 Miscellaneous Notes Called to Reschedule missed appointment (09/04/24) with Dr. Zoila Mccloud. documented in this encounter [facility] 07-25-2024 Note HNO ID: [id number] Author: SHOSHANA BARRAZA PA-C Service: ? Author Type: Physician Surgical Instrument Maker Type: Progress Notes Filed: 07/25/2024 10:20 Note Text: Shoshana Barraza PA-C Surgical Oncology [address] [place] [address], [place] [phone] VIRTUAL VISIT PROGRESS NOTE This is a virtual visit using [employer] Video Visit. It required patient-provider interaction for the medical decision making as documented below. I have communicated my name and active licensure. The patient's identity and physical location were verified at the time of this visit. Either the patient or their legal product support representative has been informed of the risks and benefits of -- and alternatives to -- treatment through a remote evaluation and consents to proceed with the evaluation remotely. Kyle Mcdaniel is a 63 year old male on the phone for a 6 week follow up for chronic pancreatitis. The patient has had two ER visits since his last visit for abdominal pain related to pancreatitis. He states he has not used alcohol in a few weeks, but his ethanol levels ordered by pain management were elevated. He is no longer eligible to get pain medication through his current pain management, so he has been going without it. He continues to have intermittent abdominal pain. He is able to tolerate a diet. He has diarrhea, but it is manageable with the creon for which he takes 3 pills with each meal. He did not see anyone from addiction medicine. PAST MEDICAL HISTORY Diagnosis Date Alcohol abuse CHF (congestive heart failure) (HCC) Diabetes mellitus (HCC) Hx of chronic pancreatitis Hyperlipemia TIA (transient ischemic attack) PAST SURGICAL HISTORY Procedure Laterality Date ABDOMINAL SURGERY HX Social History Tobacco Use Smoking status: Every Day Current packs/day: 1.00 Average packs/day: 1 pack/day for 20.0 years (20.0 ttl pk-yrs) Types: Cigarettes Smokeless tobacco: Former Types: Snuff Tobacco comments: As per pt "I smoke 12-15 smokes a day, but when I drink I know its way more." Vaping Use Vaping status: Never Used Substance Use Topics Alcohol use: Yes Comment: 1 pint liquor per week, depends on weeks Drug use: Never No family history on file. The ROS, medical, surgical, family, and social history were reviewed by Shoshana Barraza PA-C ALLERGIES Allergen Reactions Azithromycin Hives Erythromycin Hives Tylenol [Acetaminop* Hives Current Outpatient Medications Medication Sig metoprolol succinate ER (TOPROL XL) 25 mg 24 hr tablet Take 0.5 tablets by mouth once daily. lisinopril 2.5 mg tablet Take 1 tablet by mouth once daily. ykdrwv-widvvlww-smnllil (CREON 12) 12,000-38,000 -60,000 unit delayed release capsule Take 1 capsule by mouth with meals and at bedtime. ondansetron HCl (ZOFRAN ORAL) Take by mouth. thiamine (VITAMIN B1) 100 mg tablet Take 1 tablet by mouth once daily. insulin lispro (HUMALOG KWIKPEN INSULIN) 100 unit/mL Inject 5 Units subcutaneously three times a day with meals. aspirin, enteric coated (ASPIRIN, ENTERIC COATED) 81 mg EC tablet Take 81 mg by mouth once daily. traZODone (DESYREL) 100 mg tablet Take 100 mg by mouth daily at bedtime. thiamine (VITAMIN B1) 100 mg tablet Take 100 mg by mouth once daily. tamsulosin (FLOMAX) 0.4 mg Take 0.4 mg by mouth once daily. rosuvastatin (CRESTOR) 40 mg tablet Take 40 mg by mouth once daily. metFORMIN ER (GLUMETZA) 1,000 mg 24 hr tablet Take 1,000 mg by mouth two times a day. sertraline (ZOLOFT) 50 mg tablet Take 50 mg by mouth once daily. montelukast (SINGULAIR) 10 mg tablet Take 10 mg by mouth daily at bedtime. LORATADINE ORAL Take 10 mg by mouth once daily. LANTUS SOLOSTAR U-100 INSULIN 100 unit/mL (3 mL) Inject 25 Units subcutaneously two times a day. No current facility-administered medications for this visit. OBJECTIVE VIDEO EXAM: (if completed, performed via video enabled technology) GENERAL: alert and appropriate, in no distress and well-hydrated, well nourished SKIN: no rash noted and no jaundice noted RESPIRATORY: breathing non-labored ASSESSMENT AND PLAN Plan 63 year old male with history of severe acute pancreatitis managed surgically in [place] (in the setting of EtOH use) in 2018 and more recent recurrent acute pancreatitis managed at (details unclear) who was admitted at [facility] with liver abscess and cholangitis managed with an IR drain and ERCP with stent placement. MRI concerning for pancreatic mass/malignancy. EUS/FNA showed atypical cells. CA19-9 normal. Overall picture consistent with chronic pancreatitis. - continue with alcohol cessation, repeat PETH prior to follow up appointment with Dr. Calloway in September - discussed complete alcohol cessation prior to being able to proceed with surgery - patient declined addiction medicine consult - patient declined referral to another pain management - will hold off on stent exchange until September (more content not included)... [facility] 07-25-2024 History of Present illness Narrative Images from the original note were not included. Shoshana Barraza PA-C Surgical Oncology [address] [facility], [address] [place] [phone] VIRTUAL VISIT PROGRESS NOTE This is a virtual visit using [employer] Video Visit. It required patient-provider interaction for the medical decision making as documented below. I have communicated my name and active licensure. The patient's identity and physical location were verified at the time of this visit. Either the patient or their legal product support representative has been informed of the risks and benefits of -- and alternatives to -- treatment through a remote evaluation and consents to proceed with the evaluation remotely. Kyle Mcdaniel is a 63 year old male on the phone for a 6 week follow up for chronic pancreatitis. The patient has had two ER visits since his last visit for abdominal pain related to pancreatitis. He states he has not used alcohol in a few weeks, but his ethanol levels ordered by pain management were elevated. He is no longer eligible to get pain medication through his current pain management, so he has been going without it. He continues to have intermittent abdominal pain. He is able to tolerate a diet. He has diarrhea, but it is manageable with the creon for which he takes 3 pills with each meal. He did not see anyone from addiction medicine. PAST MEDICAL HISTORY Diagnosis Date Alcohol abuse CHF (congestive heart failure) (HCC) Diabetes mellitus (HCC) Hx of chronic pancreatitis Hyperlipemia TIA (transient ischemic attack) PAST SURGICAL HISTORY Procedure Laterality Date ABDOMINAL SURGERY HX Social History Tobacco Use Smoking status: Every Day Current packs/day: 1.00 Average packs/day: 1 pack/day for 20.0 years (20.0 ttl pk-yrs) Types: Cigarettes Smokeless tobacco: Former Types: Snuff Tobacco comments: As per pt "I smoke 12-15 smokes a day, but when I drink I know its way more." Vaping Use Vaping status: Never Used Substance Use Topics Alcohol use: Yes Comment: 1 pint liquor per week, depends on weeks Drug use: Never No family history on file. The ROS, medical, surgical, family, and social history were reviewed by Shoshana Barraza PA-C ALLERGIES Allergen Reactions Azithromycin Hives Erythromycin Hives Tylenol [Acetaminop* Hives Current Outpatient Medications Medication Sig metoprolol succinate ER (TOPROL XL) 25 mg 24 hr tablet Take 0.5 tablets by mouth once daily. lisinopril 2.5 mg tablet Take 1 tablet by mouth once daily. gvmjab-zmphdmdg-uurbgzf (CREON 12) 12,000-38,000 -60,000 unit delayed release capsule Take 1 capsule by mouth with meals and at bedtime. ondansetron HCl (ZOFRAN ORAL) Take by mouth. thiamine (VITAMIN B1) 100 mg tablet Take 1 tablet by mouth once daily. insulin lispro (HUMALOG KWIKPEN INSULIN) 100 unit/mL Inject 5 Units subcutaneously three times a day with meals. aspirin, enteric coated (ASPIRIN, ENTERIC COATED) 81 mg EC tablet Take 81 mg by mouth once daily. traZODone (DESYREL) 100 mg tablet Take 100 mg by mouth daily at bedtime. thiamine (VITAMIN B1) 100 mg tablet Take 100 mg by mouth once daily. tamsulosin (FLOMAX) 0.4 mg Take 0.4 mg by mouth once daily. rosuvastatin (CRESTOR) 40 mg tablet Take 40 mg by mouth once daily. metFORMIN ER (GLUMETZA) 1,000 mg 24 hr tablet Take 1,000 mg by mouth two times a day. sertraline (ZOLOFT) 50 mg tablet Take 50 mg by mouth once daily. montelukast (SINGULAIR) 10 mg tablet Take 10 mg by mouth daily at bedtime. LORATADINE ORAL Take 10 mg by mouth once daily. LANTUS SOLOSTAR U-100 INSULIN 100 unit/mL (3 mL) Inject 25 Units subcutaneously two times a day. No current facility-administered medications for this visit. OBJECTIVE VIDEO EXAM: (if completed, performed via video enabled technology) GENERAL: alert and appropriate, in no distress and well-hydrated, well nourished SKIN: no rash noted and no jaundice noted RESPIRATORY: breathing non-labored ASSESSMENT AND PLAN Plan 63 year old male with history of severe acute pancreatitis managed surgically in [place] (in the setting of EtOH use) in 2018 and more recent recurrent acute pancreatitis managed at (details unclear) who was admitted at [facility] with liver abscess and cholangitis managed with an IR drain and ERCP with stent placement. MRI concerning for pancreatic mass/malignancy. EUS/FNA showed atypical cells. CA19-9 normal. Overall picture consistent with chronic pancreatitis. - continue with alcohol cessation, repeat PETH prior to follow up appointment with Dr. Calloway in September - discussed complete alcohol cessation prior to being able to proceed with surgery - patient declined addiction medicine consult - patient declined referral to another pain management - will hold off on stent exchange until September when he is due, if not able to proceed with surgery, will reach out to GI - f/u in 2 months I spent a total of 30 minutes on the date of the service which included preparing to see the patient, wtff-[id number] patient care, completing clinical documentation, performing a medically appropriate examination, counseling and educating the patient/family/caregiver, and ordering medications, tests, or procedures Shoshana Barraza PA-C documented in this encounter [facility] 07-18-2024 Telephone encounter Note Images from the original note were not included. Evans Mccloud MD P Mr Clary Aceves Clinical Pool UDS positive for ETOH metabolites. As we discussed in office if UDS was positive for ETOH, I would not continue to prescribe. No further opiates. Called pt, he did not answer, lmom to call office Evelia Dow RN July 18, 2024 10:06 AM [facility] 07-18-2024 Miscellaneous Notes Images from the original note were not included. Evans Mccloud MD P Mr Clary Aceves Clinical Pool UDS positive for ETOH metabolites. As we discussed in office if UDS was positive for ETOH, I would not continue to prescribe. No further opiates. Called pt, he did not answer, lmom to call office Evelia Dow RN July 18, 2024 10:06 AM documented in this encounter [facility] 07-10-2024 Note HNO ID: [id number] Author: EVANS MCCLOUD MD Service: ? Author Type: Anesthesiologist Type: Progress Notes Filed: 07/10/2024 14:11 Note Text: PATIENT: Kyle Mcdaniel : 1960 DATE OF SERVICE: 07/10/2024 REFERRING PRACTITIONER: No ref. provider found PRIMARY CARE PROVIDER: Mago Elliott MD CHIEF COMPLAINT: No chief complaint on file. HISTORY OF PRESENT ILLNESS: Kyle Mcdaniel is a 63 year old year old male who presents to the clinic today with chief complaint(s) as above. Onset/Duration: Patient states he has had chronic pancreatitis since at least March 2018 Injury: Denies injury that started his pain Location/radiation/referral: Patient has abdominal pain that radiates into the ribs and into the back. He also has low back pain as well as left knee pain. Description: Pain in the abdomen is a constant pressure and occasionally sharp. He states this flares up every 2 weeks for about 3 or 4 days. He states he makes frequent trips to the emergency department. He states he is also likely to have surgery in August or September for this Pain Level: Now: 6 /10 Best: 6 /10 Worst: 10 /10 Numbness/Tingling (location): None Weakness (location): None Better with: Pain medication Worse with: Dietary changes can cause flareups Fever/Chills: [] Yes [x] No Recent significant weight change: [] Yes [x] No Bladder/Bowel incontinence: [] Yes [x] No Is this visit directly related to a work or auto injury? [] Yes [x] No If so, pre-Injury Symptoms: n/a Prior Related Consults: [x] Yes [] No 1. GI 2. General Surgery Prior Related Studies: See below Past Treatment: PT (for this condition): [] Yes [x] No Chiropractic (for this condition): [] Yes [x] No Medications: Previous opiate pain medication from emergency department Other: Prior Procedures/Surgery: Date Procedure Relief (%) Celiac plexus block did not help-completed at [facility] Per patient Work/Functional Status Able to ambulate and perform ADL's without devices: [x] Yes [] No Current occupation/duties/job title: === Review of Systems: CONSTITUTIONAL: negative. HEENT: negative. EYES: negative RESPIRATORY: negative. CARDIOVASCULAR: negative. GASTROINTESTINAL: negative. GENITOURINARY: negative. INTEGUMENT/BREAST: negative. HEMATOLOGIC/LYMPHATIC: negative. NEURO/MUSCULOSKELETAL: Negative except above BEHAVIORAL/PSYCH: negative. ENDOCRINE: negative. ALLERGIC/IMMUNOLOGIC: Negative. 14 point ROS; pertinent positives listed above, the rest are reviewed and confirmed to be negative. === HISTORY: ALLERGIES Allergen Reactions Azithromycin Hives Erythromycin Hives Tylenol [Acetaminop* Hives PAST MEDICAL HISTORY Diagnosis Date Alcohol abuse CHF (congestive heart failure) (HCC) Diabetes mellitus (HCC) Hx of chronic pancreatitis Hyperlipemia TIA (transient ischemic attack) PAST SURGICAL HISTORY Procedure Laterality Date ABDOMINAL SURGERY HX History reviewed. No pertinent family history. Social History Tobacco Use Smoking status: Every Day Current packs/day: 1.00 Average packs/day: 1 pack/day for 20.0 years (20.0 ttl pk-yrs) Types: Cigarettes Smokeless tobacco: Former Types: Snuff Tobacco comments: As per pt "I smoke 12-15 smokes a day, but when I drink I know its way more." Vaping Use Vaping status: Never Used Substance Use Topics Alcohol use: Yes Comment: 1 pint liquor per week, depends on weeks Drug use: Never Current Outpatient Medications Medication Sig ondansetron orally disintegrating (ZOFRAN ODT) 4 mg disintegrating tablet Take 1 tablet by mouth every 6 hours as needed for nausea/vomiting for up to 7 days. metoprolol succinate ER (TOPROL XL) 25 mg 24 hr tablet Take 0.5 tablets by mouth once daily. lisinopril 2.5 mg tablet Take 1 tablet by mouth once daily. sbvpxo-hpstfoud-jvlyslo (CREON 12) 12,000-38,000 -60,000 unit delayed release capsule Take 1 capsule by mouth with meals and at bedtime. ondansetron HCl (ZOFRAN ORAL) Take by mouth. thiamine (VITAMIN B1) 100 mg tablet Take 1 tablet by mouth once daily. insulin lispro (HUMALOG KWIKPEN INSULIN) 100 unit/mL Inject 5 Units subcutaneously three times a day with meals. aspirin, enteric coated (ASPIRIN, ENTERIC COATED) 81 mg EC tablet Take 81 mg by mouth once daily. traZODone (DESYREL) 100 mg tablet Take 100 mg by mouth daily at bedtime. thiamine (VITAMIN B1) 100 mg tablet Take 100 mg by mouth once daily. tamsulosin (FLOMAX) 0.4 mg Take 0.4 mg by mouth once daily. rosuvastatin (CRESTOR) 40 mg tablet Take 40 mg by mouth once daily. metFORMIN ER (GLUMETZA) 1,000 mg 24 hr tablet Take 1,000 mg by mouth two times a day. sertraline (ZOLOFT) 50 mg tablet Take 50 mg by mouth once daily. montelukast (SINGULAIR) 10 mg tablet Take 10 mg by mouth daily at bedtime. LORATADINE ORAL Take 10 mg by mouth once daily. LANTUS SOLOSTAR U-100 INSULI (more content not included)... [facility] 07-10-2024 History of Present illness Narrative PATIENT: Kyle Mcdaniel : 1960 DATE OF SERVICE: 07/10/2024 REFERRING PRACTITIONER: No ref. provider found PRIMARY CARE PROVIDER: Mago Elliott MD CHIEF COMPLAINT: No chief complaint on file. HISTORY OF PRESENT ILLNESS: Kyle Mcdaniel is a 63 year old year old male who presents to the clinic today with chief complaint(s) as above. Onset/Duration: Patient states he has had chronic pancreatitis since at least March 2018 Injury: Denies injury that started his pain Location/radiation/referral: Patient has abdominal pain that radiates into the ribs and into the back. He also has low back pain as well as left knee pain. Description: Pain in the abdomen is a constant pressure and occasionally sharp. He states this flares up every 2 weeks for about 3 or 4 days. He states he makes frequent trips to the emergency department. He states he is also likely to have surgery in August or September for this Pain Level: Now: Best: Worst: Numbness/Tingling (location): None Weakness (location): None Better with: Pain medication Worse with: Dietary changes can cause flareups Fever/Chills: [] Yes [x] No Recent significant weight change: [] Yes [x] No Bladder/Bowel incontinence: [] Yes [x] No Is this visit directly related to a work or auto injury? [] Yes [x] No If so, pre-Injury Symptoms: n/a Prior Related Consults: [x] Yes [] No 1. GI 2. General Surgery Prior Related Studies: See below Past Treatment: PT (for this condition): [] Yes [x] No Chiropractic (for this condition): [] Yes [x] No Medications: Previous opiate pain medication from emergency department Other: Prior Procedures/Surgery: Date Procedure Relief (%) Celiac plexus block did not help-completed at [facility] Per patient Work/Functional Status Able to ambulate and perform ADL's without devices: [x] Yes [] No Current occupation/duties/job title: === Review of Systems: CONSTITUTIONAL: negative. HEENT: negative. EYES: negative RESPIRATORY: negative. CARDIOVASCULAR: negative. GASTROINTESTINAL: negative. GENITOURINARY: negative. INTEGUMENT/BREAST: negative. HEMATOLOGIC/LYMPHATIC: negative. NEURO/MUSCULOSKELETAL: Negative except above BEHAVIORAL/PSYCH: negative. ENDOCRINE: negative. ALLERGIC/IMMUNOLOGIC: Negative. 14 point ROS; pertinent positives listed above, the rest are reviewed and confirmed to be negative. === HISTORY: ALLERGIES Allergen Reactions Azithromycin Hives Erythromycin Hives Tylenol [Acetaminop* Hives PAST MEDICAL HISTORY Diagnosis Date Alcohol abuse CHF (congestive heart failure) (HCC) Diabetes mellitus (HCC) Hx of chronic pancreatitis Hyperlipemia TIA (transient ischemic attack) PAST SURGICAL HISTORY Procedure Laterality Date ABDOMINAL SURGERY HX History reviewed. No pertinent family history. Social History Tobacco Use Smoking status: Every Day Current packs/day: 1.00 Average packs/day: 1 pack/day for 20.0 years (20.0 ttl pk-yrs) Types: Cigarettes Smokeless tobacco: Former Types: Snuff Tobacco comments: As per pt "I smoke 12-15 smokes a day, but when I drink I know its way more." Vaping Use Vaping status: Never Used Substance Use Topics Alcohol use: Yes Comment: 1 pint liquor per week, depends on weeks Drug use: Never Current Outpatient Medications Medication Sig ondansetron orally disintegrating (ZOFRAN ODT) 4 mg disintegrating tablet Take 1 tablet by mouth every 6 hours as needed for nausea/vomiting for up to 7 days. metoprolol succinate ER (TOPROL XL) 25 mg 24 hr tablet Take 0.5 tablets by mouth once daily. lisinopril 2.5 mg tablet Take 1 tablet by mouth once daily. exxlun-uooqewhy-zzqfxbq (CREON 12) 12,000-38,000 -60,000 unit delayed release capsule Take 1 capsule by mouth with meals and at bedtime. ondansetron HCl (ZOFRAN ORAL) Take by mouth. thiamine (VITAMIN B1) 100 mg tablet Take 1 tablet by mouth once daily. insulin lispro (HUMALOG KWIKPEN INSULIN) 100 unit/mL Inject 5 Units subcutaneously three times a day with meals. aspirin, enteric coated (ASPIRIN, ENTERIC COATED) 81 mg EC tablet Take 81 mg by mouth once daily. traZODone (DESYREL) 100 mg tablet Take 100 mg by mouth daily at bedtime. thiamine (VITAMIN B1) 100 mg tablet Take 100 mg by mouth once daily. tamsulosin (FLOMAX) 0.4 mg Take 0.4 mg by mouth once daily. rosuvastatin (CRESTOR) 40 mg tablet Take 40 mg by mouth once daily. metFORMIN ER (GLUMETZA) 1,000 mg 24 hr tablet Take 1,000 mg by mouth two times a day. sertraline (ZOLOFT) 50 mg tablet Take 50 mg by mouth once daily. montelukast (SINGULAIR) 10 mg tablet Take 10 mg by mouth daily at bedtime. LORATADINE ORAL Take 10 mg by mouth once daily. LANTUS SOLOSTAR U-100 INSULIN 100 unit/mL (3 mL) Inject 25 Units subcutaneously two times a day. oxyCODONE IR (ROXICODONE) 5 mg immediate release tablet Take 1 tablet by mouth every 6 hours as needed for pain for up to 5 days. No current facility-administered medications for this visit. OBJECTIVE: VS: BP 111/72 (BP Site: Right Arm, BP Position: Sitting, BP Cuff Size: Large Adult) Pulse 86 Resp 17 Ht 185.4 cm (6' 1") Wt 99.8 kg (220 lb) SpO2 (!) 74% BMI 29.03 kg/m Body mass index is 29.03 kg/m . PHYSICAL EXAMINATION: Gen: Well developed. No acute distress. Eyes: Conjunctivae clear. Normal upper and lower lids. CV: Non-cyanotic. No obvious jugular venous distention. Chest: Non-labored breathing, good respiratory effort. Lymph: No visible regional lymphadenopathy. No gross edema noted. Skin: Visualized portions intact and no rashes or ecchymosis noted. Psych: Alert and well-oriented. Mood/Affect: appropriate. Neuro/MSK: Abdomen tender to palpation in epigastric area. Slightly distended. Low back tender insulation board to palpation. Facet loading negative. Straight leg raise test negative. Left knee with mild tenderness to palpation Diagnostic Imaging: CT abdomen: IMPRESSION: Stable masslike prominence of the pancreatic head with atrophy/resection of proximal portions. Biliary stent remains with associated pneumobilia. There is worsening intermediate attenuation infiltration surrounding the celiac artery and branches as well as the portal confluence which may reflect edema or fibrosis. Recommend reevaluation short-term follow-up examination. Prominent small bowel loops with distention within left upper quadrant with generalized small bowel mural thickening suggestive of ileus/enteritis. Early partial obstruction is not excluded. CT abdomen from 04/2024: Section on bone and soft tissue's: Bones/Soft Tissues: Old left-sided rib fractures. Old left L2 transverse process fracture. Multilevel degenerative disc disease and lower lumbar facet arthropathy worse at L4-L5 and L5-S1 with neural foraminal narrowing.. PDMP report reviewed and consistent with small prescriptions of opiates from emergency department X-ray of the left knee reviewed from 12/2021 with mild to moderate medial compartment degenerative changes and mild lateral knee degenerative changes Other Diagnostic Studies: IMPRESSION: (K86.1) Chronic pancreatitis, unspecified pancreatitis type (HCC) (primary encounter diagnosis) (M47.816) Lumbar spondylosis (M25.562, G89.29) Chronic pain of left knee Kyle Mcdaniel is a 63 year old male here with the following issues: Multiple chronic pain complaints including pancreatitis, knee pain, low back pain. Patient states he is hopeful to have surgery for his pancreas in August or September. We discussed our clinic would not prescribe opiates chronically for this. I stated I would be willing to give him short prescriptions every few weeks through August or September when he is able to have his procedure. We also discussed if this procedure did not happen we would stop prescribing at this time. Patient states he understands why we cannot continue opiate medication in perpetuity. Medication is not for every day baseline pain but is for flareups. The goal of this is to reduce pain and hopefully reduce emergency department visits PLAN: -Recommend: Oxycodone 5 4 times daily as needed x 5 days. This prescription will be refilled intermittently but not weekly. This will be refilled no later than September 2024. Continue care with all other specialists including GI, surgery. Urine drug screen today. Discussed if there was any alcohol or unprescribed drugs present, I would not continue with the above plan. Follow-up in 2 months May address the low back or knee at any time. Patient states these pains are tolerable at this time The risks, benefits, alternative treatment options and prognosis were discussed and all of patient's questions/concerns were addressed. Follow-up: 2 months May certainly follow up sooner if needed. My final recommendations will be communicated back to the requesting physician by way of shared Medical record or letter to requesting physician via [place] mail. This note was produced using voice recognition software and therefore may contain typos. Please contact the author with any questions or concerns. Author: Evans Mccloud MD 07/10/2024 1:59 PM Room 3 New Consult: Back Pain documented in this encounter [facility] 07-10-2024 Note HNO ID: [id number] Author: DANIELLE TURNER MA Service: ? Author Type: Harness Puller Type: Progress Notes Filed: 07/10/2024 14:11 Note Text: Room 3 New Consult: Back Pain [facility] 06-25-2024 Telephone encounter Note Patient's called stating that they needed a release of care from us in order for this patient to be scheduled with [facility]. After review of the appointment on 05/10/24 this patient was only looking for Oxycodone and when he was told that we don't prescribe at the first appointment this patient left without being seen and appointment was cancelled. I have called and spoke with this patient's and informed her that we wouldn't do a release of care when he was never seen within our office. Patient's stated that on there end it is showing that this patient's appointment was completed. I stated that this appointment is showing that it was canceled because he left the office without being seen. Patient's gave me the phone number to [facility] of [phone]. I have called this number and they are closed today. Bart Garvin [facility] 06-25-2024 Miscellaneous Notes Patient's called stating that they needed a release of care from us in order for this patient to be scheduled with [facility]. After review of the appointment on 05/10/24 this patient was only looking for Oxycodone and when he was told that we don't prescribe at the first appointment this patient left without being seen and appointment was cancelled. I have called and spoke with this patient's and informed her that we wouldn't do a release of care when he was never seen within our office. Patient's stated that on there end it is showing that this patient's appointment was completed. I stated that this appointment is showing that it was canceled because he left the office without being seen. Patient's gave me the phone number to Luciano Aceves of [phone]. I have called this number and they are closed today. Bart Garvin documented in this encounter [facility] 06-18-2024 Note HNO ID: [id number] Author: MARISELA PADILLA MD Service: ? Author Type: Fellow Type: Progress Notes Filed: 06/18/2024 07:40 Note Text: [facility] Multidisciplinary Kzuorz-Bkwnuvhpx-Jqstwdx AND Upper GI Case Conference -- Consensus Note -- Conference date: 06/18/24 Case reviewed with physicians from GI/ Surgery / Radiology services Surgery - Flores, Tod Blount Naffouje, Elli GI - Michaela, Paul Radiology - [place] Issue/Question: -63 year old male with history of severe acute pancreatitis managed surgically in [place] (in the setting of EtOH use) in 2018 and more recent recurrent acute pancreatitis managed at (details unclear) who was admitted at [facility] with liver abscess and cholangitis managed with an IR drain and ERCP with stent placement. MRI concerning for pancreatic mass/malignancy. EUS/FNA showed atypical cells. CA19-9 normal. PETH 315. Overall picture consistent with chronic pancreatitis. Review imaging to rule out malignancy, discuss next steps. Pre-conference plan: -Serial imaging Imaging review: -CT 04/22/24, 05/08/24: no parenchyma seen in body or tail. No mass identified. Final Consensus/ Recommendations: -No need for repeat biopsy Marisela Padilla MD [facility] Surgery [facility] 06-11-2024 Note Addended by: GIA ROBLES on: 06/11/2024 05:15 PM Modules accepted: Orders [facility] 06-11-2024 Miscellaneous Notes Addended by: GIA CALLOWAY on: 06/11/2024 05:15 PM Modules accepted: Orders documented in this encounter [facility] 06-11-2024 Note HNO ID: [id number] Author: GIA CALLOWAY MD Service: ? Author Type: Physician Type: Progress Notes Filed: 06/11/2024 16:40 Note Text: [facility] SURGERY PROGRESS NOTE Subjective INTERVAL HISTORY OF PRESENT ILLNESS: Having daily chronic abdominal pain and belching/bloating that is worse with food Feels that the celiac plexus block made his pain worse Careful about what he eats No significant weight loss Chronic nausea He states that he has been drinking alcohol regularly, which helps with the pain Objective PHYSICAL EXAM: BP 122/64 Pulse 78 Ht 6' 1" (1.85m) Wt 226 lb (102.5kg) SpO2 97% BMI 29.82 kg/(m2). Physical Exam Performed GENERAL: Alert, no distress, cooperative LUNGS: Negative ABDOMEN: Negative The remainder of the physical exam is noncontributory. DATA: Diagnostic tests reviewed for today's visit: Most recent labs and imaging results. Assessment/Plan 63 year old male with history of severe acute pancreatitis managed surgically in [place] (in the setting of EtOH use) in 2018 and more recent recurrent acute pancreatitis managed at (details unclear) who was admitted at [facility] with liver abscess and cholangitis managed with an IR drain and ERCP with stent placement. MRI concerning for pancreatic mass/malignancy. EUS/FNA showed atypical cells. CA19-9 normal. Overall picture consistent with chronic pancreatitis. --Sent pain rx to pharmacy today --Consult pain management --Consult addiction medicine --Phone check in with Shoshana in 6 weeks --May need stent exchange if not going to surgery Jumana Calloway MD [facility] Surgeon [facility] 06-11-2024 History of Present illness Narrative [facility] SURGERY PROGRESS NOTE Subjective INTERVAL HISTORY OF PRESENT ILLNESS: Having daily chronic abdominal pain and belching/bloating that is worse with food Feels that the celiac plexus block made his pain worse Careful about what he eats No significant weight loss Chronic nausea He states that he has been drinking alcohol regularly, which helps with the pain Objective PHYSICAL EXAM: BP 122/64 Pulse 78 Ht 6' 1" (1.85m) Wt 226 lb (102.5kg) SpO2 97% BMI 29.82 kg/(m^2). Physical Exam Performed GENERAL: Alert, no distress, cooperative LUNGS: Negative ABDOMEN: Negative The remainder of the physical exam is noncontributory. DATA: Diagnostic tests reviewed for today's visit: Most recent labs and imaging results. Assessment/Plan 63 year old male with history of severe acute pancreatitis managed surgically in [place] (in the setting of EtOH use) in 2018 and more recent recurrent acute pancreatitis managed at (details unclear) who was admitted at [facility] with liver abscess and cholangitis managed with an IR drain and ERCP with stent placement. MRI concerning for pancreatic mass/malignancy. EUS/FNA showed atypical cells. CA19-9 normal. Overall picture consistent with chronic pancreatitis. --Sent pain rx to pharmacy today --Consult pain management --Consult addiction medicine --Phone check in with Shoshana in 6 weeks --May need stent exchange if not going to surgery Jumana Calloway MD B Surgeon documented in this encounter [facility] 06-04-2024 Telephone encounter Note Spoke with Notified of stress test results and Dr Molina's message on clearance. reports pt does not have a surgery date yet. He has an appointment with the surgeon 06/11/24. She will ask surgeon staff to send a clearance form. Araceli Antony RN [facility] 06-04-2024 Miscellaneous Notes Spoke with Notified of stress test results and Dr Molina's message on clearance. reports pt does not have a surgery date yet. He has an appointment with the surgeon 06/11/24. She will ask surgeon staff to send a clearance form. Araceli Antony RN Left message for Mr. Mcdaniel to call [facility] for test results. [facility] phone number provided. Opal Springer LPN ----- Message from Kevin Molina MD sent at 06/04/2024 2:41 PM EST ----- Can you please let Mr. Mcdaniel know that his nuclear stress test was unremarkable, without evidence of myocardial ischemia or scar. As such, he will be at overall moderate risk of cardiac complications from an anticipated elevated risk intraperitoneal surgery. Do we have a preoperative cardiac risk assessment form for him for his surgery? Thanks, Kevin Molina MD documented in this encounter [facility] 06-04-2024 Telephone encounter Note Left message for Mr. Mcdaniel to call [facility] for test results. [facility] phone number provided. Opal Springer LPN [facility] 06-04-2024 Telephone encounter Note ----- Message from Kevin Molina MD sent at 06/04/2024 2:41 PM EST ----- Can you please let Mr. Mcdaniel know that his nuclear stress test was unremarkable, without evidence of myocardial ischemia or scar. As such, he will be at overall moderate risk of cardiac complications from an anticipated elevated risk intraperitoneal surgery. Do we have a preoperative cardiac risk assessment form for him for his surgery? Thanks, Kevin Molina MD [facility] 06-03-2024 History of Present illness Narrative RADIOLOGY SERVICE PROGRESS NOTE SERVICE DATE: 06/03/2024 SERVICE TIME: 9:56 AM PATIENT IDENTITY VERIFICATION COMPLETED USING TWO (2) STANDARD IDENTIFIERS: Name and Date of confirmed by patient verbally FALL SCREENING: Has the patient had 2 falls in the last year or 1 fall with injury or currently using an Ambulatory Assistive Device (Walker, Cane, Wheelchair, Crutches, etc.)? No PATIENT GENDER DATA: .male ALLERGIES: Reviewed and unchanged MEDICATIONS REVIEWED: Yes PATIENT RELEVANT IMPLANT DATA REVIEWED: Not Applicable PATIENT PRESENTS WITH AN IMPLANTABLE OR ATTACHED FINANCIAL COACH: No CREATININE: Creatinine Date Value Ref Range Status 05/14/2024 0.77 0.73 - 1.22 mg/dL Final 05/08/2024 1.08 0.73 - 1.22 mg/dL Final 04/25/2024 0.82 0.73 - 1.22 mg/dL Final Estimated Glomerular Filtration Rate Date Value Ref Range Status 05/14/2024 99 >=60 mL/min/1.73m Final Comment: Estimated Glomerular Filtration Rate (eGFR) is calculated using the 2020 CKD-EPI creatinine equation. This equation utilizes serum creatinine, sex, and age as parameters. The creatinine assay has traceable calibration to isotope dilution-mass spectrometry. Refer to KDIGO guidelines for clinical interpretation. In patients with unstable renal function, e.g. those with acute kidney injury, the eGFR may not accurately reflect actual GFR. P.O.C.T. RESULTS: N/A June 03, [address] PERFORMED: No IV SITE: Ambulatory: A peripheral IV was started in the Left hand with a Angio cath: 24 gauge. POST EXAM PIV STATUS: Discontinued PROCEDURE TYPE: VT Stress: 13.3 mCi [id number] was administered IV for Rest Imaging at 08:35 by HAWK. 52.1 mCi [id number] was administered IV for Stress Imaging at 10:00 by KIM. ADMINISTRATION TIME: 08:35 PATIENT DISCHARGED TO: Ambulatory patient, left VT department area. Is this a therapy: No A Diagnostic radioactive procedure has taken place, with no further precautions necessary other than routine body substance precautions. More information regarding radiation safety can be found using this link: [email or web address] SIGNATURE: ROCK Lees) PATIENT NAME: Kyle Mcdaniel DATE: June 03, 2024 TIME: 9:56 AM PAGER/CONTACT #: documented in this encounter [facility] 06-03-2024 Note HNO ID: [id number] Author: MAULLER, CHUCKIE, RT(R) Service: Radiology Author Type: Technologist Type: Progress Notes Filed: 06/03/2024 09:57 Note Text: RADIOLOGY SERVICE PROGRESS NOTE SERVICE DATE: 06/03/2024 SERVICE TIME: 9:56 AM PATIENT IDENTITY VERIFICATION COMPLETED USING TWO (2) STANDARD IDENTIFIERS: Name and Date of confirmed by patient verbally FALL SCREENING: Has the patient had 2 falls in the last year or 1 fall with injury or currently using an Ambulatory Assistive Device (Walker, Cane, Wheelchair, Crutches, etc.)? No PATIENT GENDER DATA: .male ALLERGIES: Reviewed and unchanged MEDICATIONS REVIEWED: Yes PATIENT RELEVANT IMPLANT DATA REVIEWED: Not Applicable PATIENT PRESENTS WITH AN IMPLANTABLE OR ATTACHED FINANCIAL COACH: No CREATININE: Creatinine Date Value Ref Range Status 05/14/2024 0.77 0.73 - 1.22 mg/dL Final 05/08/2024 1.08 0.73 - 1.22 mg/dL Final 04/25/2024 0.82 0.73 - 1.22 mg/dL Final Estimated Glomerular Filtration Rate Date Value Ref Range Status 05/14/2024 99 >=60 mL/min/1.73m? Final Comment: Estimated Glomerular Filtration Rate (eGFR) is calculated using the 2020 CKD-EPI creatinine equation. This equation utilizes serum creatinine, sex, and age as parameters. The creatinine assay has traceable calibration to isotope dilution-mass spectrometry. Refer to KDIGO guidelines for clinical interpretation. In patients with unstable renal function, e.g. those with acute kidney injury, the eGFR may not accurately reflect actual GFR. P.O.C.T. RESULTS: N/A June 03, [address] PERFORMED: No IV SITE: Ambulatory: A peripheral IV was started in the Left hand with a Angio cath: 24 gauge. POST EXAM PIV STATUS: Discontinued PROCEDURE TYPE: NM Stress: 13.3 mCi [id number] was administered IV for Rest Imaging at 08:35 by HAWK. 52.1 mCi [id number] was administered IV for Stress Imaging at 10:00 by KIM. ADMINISTRATION TIME: 08:35 PATIENT DISCHARGED TO: Ambulatory patient, left [place] department area. Is this a therapy: No A Diagnostic radioactive procedure has taken place, with no further precautions necessary other than routine body substance precautions. More information regarding radiation safety can be found using this link: [email or web address] SIGNATURE: RT Yoana(R) PATIENT NAME: Kyle Mcdaniel DATE: June 03, 2024 TIME: 9:56 AM PAGER/CONTACT #: [facility] 06-03-2024 Nurse Note Jelco #22 Left AC. Pt Was Unable To Achieve 85% Max Predicted HR. Test Changed To A Chemical Stress Test. Lexiscan Nuclear Stress Test Explained And Questions Answered Prior To Testing. Hepwell D/C'ed Post Test. [facility] 06-03-2024 Nurse Note Kiplco #22 Left AC. Pt Was Unable To Achieve 85% Max Predicted HR. Test Changed To A Chemical Stress Test. Lexiscan Nuclear Stress Test Explained And Questions Answered Prior To Testing. Hepwell D/C'ed Post Test. documented in this encounter [facility] 05-27-2024 Telephone encounter Note I called pt and I did reschedule his appointment for 09-20-2023 but he did let me know that his sugar goes up its depends on what he eats. I told him I will let Dr. Belle know. Add him on the waiting list. Florence Boyd May 27, 2024 8:24 AM [facility] 05-27-2024 Miscellaneous Notes I called pt and I did reschedule his appointment for 09-20-2023 but he did let me know that his sugar goes up its depends on what he eats. I told him I will let Dr. Belle know. Add him on the waiting list. Florence Boyd May 27, 2024 8:24 AM documented in this encounter [facility] 05-15-2024 Telephone encounter Note Informed pt. Shoshana Pérez MA [facility] 05-15-2024 Miscellaneous Notes Informed pt. Shoshana Pérez MA Did you want a PSA done on him? I do not see anything in your last office note. He will be seeing you for a 3 mouth f/u. Please advise. Thank you, Shoshana Pérez MA Pt went to [place] for a blood draw for PSA/Appt 05/24. There is no order in the chart. Please place PSA in chart and notify patient. Stacia Camacho documented in this encounter [facility] 05-15-2024 Telephone encounter Note Did you want a PSA done on him? I do not see anything in your last office note. He will be seeing you for a 3 mouth f/u. Please advise. Thank you, Shoshana Pérez MA [facility] 05-15-2024 Telephone encounter Note Pt went to [place] for a blood draw for PSA/Appt 05/24. There is no order in the chart. Please place PSA in chart and notify patient. Stacia Camacho [facility] 05-10-2024 History of Present illness Narrative Patient stated that he was only interested in continuous opiate therapy. Patient was informed that we would not start continuous opiate therapy. Patient decided to not be seen. documented in this encounter [facility] 05-10-2024 Note HNO ID: [id number] Author: SEGUN ESCALONA APRN.CNP Service: ? Author Type: Nurse Practitioner Type: Progress Notes Filed: 05/10/2024 13:08 Note Text: Patient stated that he was only interested in continuous opiate therapy. Patient was informed that we would not start continuous opiate therapy. Patient decided to not be seen. [facility] 05-02-2024 Telephone encounter Note Summary: SOC Updates SURGERY OPTIMIZATION CLINIC ART CONSERVATOR NOTE Discussed the purpose of the Surgery Optimization Clinic. Reviewed modifiable risk factors identified in the Surgery Optimization Clinic: Spoke to on the phone for updates: EXERCISE: He is wearing his pedometer to track his steps, he has been trying to walk down the road which is about a 0.25 of a mile. Encouraged to increase activity as much as possible prior to surgery. BREATHING: He has not been using his IS recently. Encouraged to use 30-40 breaths/day. He continues to smoke, but is now only smoking half of the 5 he smokes a day. NUTRITION: Some days his appetite is good, some days worse. He is still drinking "off and on." Encouraged complete cessation. Reviewed high protein food sources. Encouraged to include a protein source with each meal. Impact Advanced Recovery to start 5 days prior to procedure, BID. STRESS RELIEF: Mood has been ok, has not asked to have his Zoloft increased. Education given to patient for stress reduction/management. OR DATE: TBD Agreeable to a follow up call in: 4 weeks Tracey Brown APRN.CNP May 02, 2024 [facility] 05-02-2024 Miscellaneous Notes Summary: SOC Updates SURGERY OPTIMIZATION CLINIC ART CONSERVATOR NOTE Discussed the purpose of the Surgery Optimization Clinic. Reviewed modifiable risk factors identified in the Surgery Optimization Clinic: Spoke to on the phone for updates: EXERCISE: He is wearing his pedometer to track his steps, he has been trying to walk down the road which is about a 0.25 of a mile. Encouraged to increase activity as much as possible prior to surgery. BREATHING: He has not been using his IS recently. Encouraged to use 30-40 breaths/day. He continues to smoke, but is now only smoking half of the 5 he smokes a day. NUTRITION: Some days his appetite is good, some days worse. He is still drinking "off and on." Encouraged complete cessation. Reviewed high protein food sources. Encouraged to include a protein source with each meal. Impact Advanced Recovery to start 5 days prior to procedure, BID. STRESS RELIEF: Mood has been ok, has not asked to have his Zoloft increased. Education given to patient for stress reduction/management. OR DATE: TBD Agreeable to a follow up call in: 4 weeks Tracey Brown APRN.CNP May 02, 2024 documented in this encounter [facility] 04-30-2024 Note HNO ID: [id number] Author: GIA CALLOWAY MD Service: ? Author Type: Physician Type: Progress Notes Filed: 04/30/2024 16:10 Note Text: VIRTUAL VISIT PROGRESS NOTE This is a virtual visit using Audio Only Visit. It required patient-provider interaction for the medical decision making as documented below. I have communicated my name and active licensure. The patient's identity and physical location were verified at the time of this visit. Either the patient or their legal product support representative has been informed of the risks and benefits of -- and alternatives to -- treatment through a remote evaluation and consents to proceed with the evaluation remotely. Kyle Mcdaniel is a 63 year old male seen for follow up of chronic pancreatitis. He is overall doing much better than the last time we spoke. He has not had a drink of alcohol in a few weeks. He is eating well without issue. He has a new CGM and his sugars have mostly been in the mid-100s. He has intermittent pain and has been in the ER for that reason a few days ago. He has not been using any pain medication because the pharmacy refused to fill the script that the ER sent him home with. He is scheduled for his stress test early May. HISTORY REVIEWED (electronic chart updated): PAST MEDICAL HISTORY Diagnosis Date Alcohol abuse CHF (congestive heart failure) (HCC) Diabetes mellitus (HCC) Hx of chronic pancreatitis Hyperlipemia TIA (transient ischemic attack) PAST SURGICAL HISTORY Procedure Laterality Date ABDOMINAL SURGERY HX No family history on file. Social History Tobacco Use Smoking status: Every Day Current packs/day: 1.00 Average packs/day: 1 pack/day for 20.0 years (20.0 ttl pk-yrs) Types: Cigarettes Smokeless tobacco: Former Types: Snuff Tobacco comments: As per pt "I smoke 12-15 smokes a day, but when I drink I know its way more." Vaping Use Vaping status: Never Used Substance Use Topics Alcohol use: Yes Comment: 1 pint liquor per week, depends on weeks Drug use: Never Current Outpatient Medications Medication Sig metoprolol succinate ER (TOPROL XL) 25 mg 24 hr tablet Take 0.5 tablets by mouth once daily. lisinopril 2.5 mg tablet Take 1 tablet by mouth once daily. hmaqjb-dssgqpig-uuwmffx (CREON 12) 12,000-38,000 -60,000 unit delayed release capsule Take 1 capsule by mouth with meals and at bedtime. ondansetron HCl (ZOFRAN ORAL) Take by mouth. thiamine (VITAMIN B1) 100 mg tablet Take 1 tablet by mouth once daily. insulin lispro (HUMALOG KWIKPEN INSULIN) 100 unit/mL Inject 5 Units subcutaneously three times a day with meals. aspirin, enteric coated (ASPIRIN, ENTERIC COATED) 81 mg EC tablet Take 81 mg by mouth once daily. traZODone (DESYREL) 100 mg tablet Take 100 mg by mouth daily at bedtime. thiamine (VITAMIN B1) 100 mg tablet Take 100 mg by mouth once daily. tamsulosin (FLOMAX) 0.4 mg Take 0.4 mg by mouth once daily. rosuvastatin (CRESTOR) 40 mg tablet Take 40 mg by mouth once daily. metFORMIN ER (GLUMETZA) 1,000 mg 24 hr tablet Take 1,000 mg by mouth two times a day. sertraline (ZOLOFT) 50 mg tablet Take 50 mg by mouth once daily. montelukast (SINGULAIR) 10 mg tablet Take 10 mg by mouth daily at bedtime. LORATADINE ORAL Take 10 mg by mouth once daily. LANTUS SOLOSTAR U-100 INSULIN 100 unit/mL (3 mL) Inject 25 Units subcutaneously two times a day. No current facility-administered medications for this visit. ALLERGIES Allergen Reactions Azithromycin Hives Erythromycin Hives Tylenol [Acetaminop* Hives PHYSICAL EXAMINATION: VIDEO EXAM: (if completed, performed via video enabled technology) No exam performed ASSESSMENT/PLAN: 63 year old male with history of severe acute pancreatitis managed surgically in [place] (in the setting of EtOH use) in 2018 and more recent recurrent acute pancreatitis managed at (details unclear) who was admitted at [facility] with liver abscess and cholangitis managed with an IR drain and ERCP with stent placement. MRI concerning for pancreatic mass/malignancy. EUS/FNA showed atypical cells. CA19-9 normal. Overall picture consistent with chronic pancreatitis. --Stress test in May --Continue complete EtOH cessation --Follow-up with me in person after stress test with repeat PeTH --Holding date for Whipple pending the above There are no Patient Instructions on file for this visit. I spent a total of 20 minutes on the date of the service which included preparing to see the patient, completing clinical documentation, obtaining and/or reviewing separately obtained history, counseling and educating the patient/family/caregiver, independently interpreting results (not separately reported), communicating results to the patient/family/caregiver, and care coordination (not separately reported) Gia Calloway MD [facility] 04-30-2024 History of Present illness Narrative VIRTUAL VISIT PROGRESS NOTE This is a virtual visit using Audio Only Visit. It required patient-provider interaction for the medical decision making as documented below. I have communicated my name and active licensure. The patient's identity and physical location were verified at the time of this visit. Either the patient or their legal product support representative has been informed of the risks and benefits of -- and alternatives to -- treatment through a remote evaluation and consents to proceed with the evaluation remotely. Kyle Mcdaniel is a 63 year old male seen for follow up of chronic pancreatitis. He is overall doing much better than the last time we spoke. He has not had a drink of alcohol in a few weeks. He is eating well without issue. He has a new CGM and his sugars have mostly been in the mid-100s. He has intermittent pain and has been in the ER for that reason a few days ago. He has not been using any pain medication because the pharmacy refused to fill the script that the ER sent him home with. He is scheduled for his stress test early May. HISTORY REVIEWED (electronic chart updated): PAST MEDICAL HISTORY Diagnosis Date Alcohol abuse CHF (congestive heart failure) (HCC) Diabetes mellitus (HCC) Hx of chronic pancreatitis Hyperlipemia TIA (transient ischemic attack) PAST SURGICAL HISTORY Procedure Laterality Date ABDOMINAL SURGERY HX No family history on file. Social History Tobacco Use Smoking status: Every Day Current packs/day: 1.00 Average packs/day: 1 pack/day for 20.0 years (20.0 ttl pk-yrs) Types: Cigarettes Smokeless tobacco: Former Types: Snuff Tobacco comments: As per pt "I smoke 12-15 smokes a day, but when I drink I know its way more." Vaping Use Vaping status: Never Used Substance Use Topics Alcohol use: Yes Comment: 1 pint liquor per week, depends on weeks Drug use: Never Current Outpatient Medications Medication Sig metoprolol succinate ER (TOPROL XL) 25 mg 24 hr tablet Take 0.5 tablets by mouth once daily. lisinopril 2.5 mg tablet Take 1 tablet by mouth once daily. rfzrwj-olbrrkgz-tnhlavz (CREON 12) 12,000-38,000 -60,000 unit delayed release capsule Take 1 capsule by mouth with meals and at bedtime. ondansetron HCl (ZOFRAN ORAL) Take by mouth. thiamine (VITAMIN B1) 100 mg tablet Take 1 tablet by mouth once daily. insulin lispro (HUMALOG KWIKPEN INSULIN) 100 unit/mL Inject 5 Units subcutaneously three times a day with meals. aspirin, enteric coated (ASPIRIN, ENTERIC COATED) 81 mg EC tablet Take 81 mg by mouth once daily. traZODone (DESYREL) 100 mg tablet Take 100 mg by mouth daily at bedtime. thiamine (VITAMIN B1) 100 mg tablet Take 100 mg by mouth once daily. tamsulosin (FLOMAX) 0.4 mg Take 0.4 mg by mouth once daily. rosuvastatin (CRESTOR) 40 mg tablet Take 40 mg by mouth once daily. metFORMIN ER (GLUMETZA) 1,000 mg 24 hr tablet Take 1,000 mg by mouth two times a day. sertraline (ZOLOFT) 50 mg tablet Take 50 mg by mouth once daily. montelukast (SINGULAIR) 10 mg tablet Take 10 mg by mouth daily at bedtime. LORATADINE ORAL Take 10 mg by mouth once daily. LANTUS SOLOSTAR U-100 INSULIN 100 unit/mL (3 mL) Inject 25 Units subcutaneously two times a day. No current facility-administered medications for this visit. ALLERGIES Allergen Reactions Azithromycin Hives Erythromycin Hives Tylenol [Acetaminop* Hives PHYSICAL EXAMINATION: VIDEO EXAM: (if completed, performed via video enabled technology) No exam performed ASSESSMENT/PLAN: 63 year old male with history of severe acute pancreatitis managed surgically in [place] (in the setting of EtOH use) in 2018 and more recent recurrent acute pancreatitis managed at (details unclear) who was admitted at [facility] with liver abscess and cholangitis managed with an IR drain and ERCP with stent placement. MRI concerning for pancreatic mass/malignancy. EUS/FNA showed atypical cells. CA19-9 normal. Overall picture consistent with chronic pancreatitis. --Stress test in May --Continue complete EtOH cessation --Follow-up with me in person after stress test with repeat PeTH --Holding date for Whipple pending the above There are no Patient Instructions on file for this visit. I spent a total of 20 minutes on the date of the service which included preparing to see the patient, completing clinical documentation, obtaining and/or reviewing separately obtained history, counseling and educating the patient/family/caregiver, independently interpreting results (not separately reported), communicating results to the patient/family/caregiver, and care coordination (not separately reported) Gia Calloway MD documented in this encounter [facility] 04-25-2024 Telephone encounter Note Called and spoke with Kyle Mcdanile to relay Dr. Molina's comments and recommendation to follow up with PCP for chronic elevated glucose readings. Pt verbalized understanding and states he will see PCP. Laura Vidal RN [facility] 04-25-2024 Miscellaneous Notes Called and spoke with Kyle Smith Jonas to relay Dr. Molina's comments and recommendation to follow up with PCP for chronic elevated glucose readings. Pt verbalized understanding and states he will see PCP. Laura Vidal RN ----- Message from Kevin Molina MD sent at 04/25/2024 2:01 PM EDT ----- Can you please let Mr. Mcdaniel know his basic metabolic panel revealed normal electrolytes and kidney function. His glucose readings have been chronically elevated and he should follow up with his PCP in this regards. His lipids were otherwise very well controlled with LDL 45. Thanks, Kevin Molina MD documented in this encounter [facility] 04-25-2024 Telephone encounter Note ----- Message from Kevin Molina MD sent at 04/25/2024 2:01 PM EDT ----- Can you please let Mr. Mcdaniel know his basic metabolic panel revealed normal electrolytes and kidney function. His glucose readings have been chronically elevated and he should follow up with his PCP in this regards. His lipids were otherwise very well controlled with LDL 45. Thanks, Kevin Molina MD [facility] 04-22-2024 Note HNO ID: [id number] Author: ESTEPHANIA MCGRATH CT Service: ? Author Type: Clinical Reimbursement Director Type: Progress Notes Filed: 04/22/2024 21:18 Note Text: Radiology Service Progress Note DATE OF SERVICE: April 22, 2024 TIME: 9:17 PM PATIENT IDENTITY VERIFICATION COMPLETED USING TWO (2) STANDARD IDENTIFIERS: Name and Date of confirmed by patient verbally and Name and Date of confirmed by identification band. FALL SCREENING: Has the patient had 2 falls in the last year or 1 fall with injury or currently using an Ambulatory Assistive Device (Walker, Cane, Wheelchair, Crutches, etc.)? Emergency Room Patient: Screened in ED PATIENT GENDER DATA: Male PATIENT RELEVANT IMPLANT DATA REVIEWED: Not Applicable PATIENT PRESENTS WITH AN IMPLANTABLE OR ATTACHED FINANCIAL COACH: No ALLERGIES: Reviewed and unchanged CONTRAST ALLERGY: NO. EXAM: CT -CONTRAST INDUCED NEPHROPATHY RISK FACTORS: Patient age > 60 years CREATININE: Creatinine Date Value Ref Range Status 04/22/2024 1.09 0.73 - 1.22 mg/dL Final 03/29/2024 0.86 0.73 - 1.22 mg/dL Final 03/06/2024 0.88 0.73 - 1.22 mg/dL Final Estimated Glomerular Filtration Rate Date Value Ref Range Status 04/22/2024 75 >=60 mL/min/1.73m? Final Comment: Estimated Glomerular Filtration Rate (eGFR) is calculated using the 2020 CKD-EPI creatinine equation. This equation utilizes serum creatinine, sex, and age as parameters. The creatinine assay has traceable calibration to isotope dilution-mass spectrometry. Refer to KDIGO guidelines for clinical interpretation. In patients with unstable renal function, e.g. those with acute kidney injury, the eGFR may not accurately reflect actual GFR. P.O.C.T. RESULTS: POC done: Yes, See Lab Tab April 22, 2024 TREATMENT: N/A and No Hydration needed. PERIPHERAL IV DATA: Ambulatory: A peripheral IV was started in the Right with a Angio cath: 20 gauge. RADIOLOGY DEPARTMENT: CT; Exam(s) Completed: Abdomen/Pelvis SIGNATURE: ZEKE Corbin, CT PATIENT NAME: Kyle Mcdaniel DATE: April 22, 2024 TIME: 9:[address] [facility] 04-12-2024 Note HNO ID: [id number] Author: KEVIN MOLINA MD Service: ? Author Type: Physician Type: Progress Notes Filed: 04/12/2024 16:37 Note Text: PRIMARY CARE PHYSICIAN: [address] [place] [address] REFERRING PHYSICIAN: Gia Calloway MD [address] [place] [address] CHIEF COMPLAINT: Preoperative cardiac risk assessment prior to Whipple procedure by Dr. Calloway HISTORY OF PRESENT ILLNESS: Mr. Mcdaniel is a 63 year old male with a history of diabetes, hyperlipidemia, multiple prior TIAs, degenerative disc disease, cardiomyopathy with stage B heart failure, chronic pancreatitis from ongoing alcohol abuse and tobacco abuse who was referred to cardiology clinic for preoperative cardiac risk assessment prior to Whipple procedure. Patient reports a longstanding history of tobacco and alcohol abuse. He reports smoking on average half a pack a day for the last 45 years and is currently down to smoking 5 cigarettes daily. He does report a history of heavy alcohol abuse and reports he has been drinking since the age of 6. He reports that he was drinking on average 24 beers a day for decades with a maximum of 68 beers in a day. In the last couple years, he has transition to hard liquor and has been drinking at least 3 to 4 pints a week. In this setting, patient has developed chronic pancreatitis with recent MRI concerning for pancreatic mass/malignancy. He has been recommended Whipple procedure. As part of his evaluation, patient did recently undergo an echocardiogram revealing mild LV dysfunction with ejection fraction 45% with no significant valve disease. As a result, he was referred to cardiology clinic for further preoperative cardiac risk assessment. In discussion with the patient, he denies any complaints of chest pain, dyspnea on exertion, orthopnea, paroxysmal nocturnal dyspnea, lower extremity edema, presyncope, syncope, or palpitations. He is largely sedentary and does not engage in any regular exercise. He reports the most active thing he has done in the last several months is climb a flight of stairs. His underlying risk factors include insulin-dependent diabetes, multiple prior TIAs, hyperlipidemia and ongoing tobacco and alcohol abuse. He denies any history of known atherosclerotic cardiovascular disease, chronic kidney disease or clinical congestive heart failure. PAST MEDICAL HISTORY Diagnosis Date Alcohol abuse CHF (congestive heart failure) (HCC) Diabetes mellitus (HCC) Hx of chronic pancreatitis Hyperlipemia TIA (transient ischemic attack) PAST SURGICAL HISTORY Procedure Laterality Date ABDOMINAL SURGERY HX MEDICATIONS: whfvpi-yjawgdlr-voilyba (CREON 12) 12,000-38,000 -60,000 unit delayed release capsule Take 1 capsule by mouth with meals and at bedtime. ondansetron HCl (ZOFRAN ORAL) Take by mouth. thiamine (VITAMIN B1) 100 mg tablet Take 1 tablet by mouth once daily. insulin lispro (HUMALOG KWIKPEN INSULIN) 100 unit/mL Inject 5 Units subcutaneously three times a day with meals. aspirin, enteric coated (ASPIRIN, ENTERIC COATED) 81 mg EC tablet Take 81 mg by mouth once daily. traZODone (DESYREL) 100 mg tablet Take 100 mg by mouth daily at bedtime. thiamine (VITAMIN B1) 100 mg tablet Take 100 mg by mouth once daily. ondansetron orally disintegrating (ZOFRAN ODT) 4 mg disintegrating tablet Take 1 tablet by mouth every 8 hours as needed. tamsulosin (FLOMAX) 0.4 mg Take 0.4 mg by mouth once daily. rosuvastatin (CRESTOR) 40 mg tablet Take 40 mg by mouth once daily. metFORMIN ER (GLUMETZA) 1,000 mg 24 hr tablet Take 1,000 mg by mouth two times a day. sertraline (ZOLOFT) 50 mg tablet Take 50 mg by mouth once daily. montelukast (SINGULAIR) 10 mg tablet Take 10 mg by mouth daily at bedtime. LORATADINE ORAL Take 10 mg by mouth once daily. LANTUS SOLOSTAR U-100 INSULIN 100 unit/mL (3 mL) Inject 25 Units subcutaneously two times a day. metoprolol succinate ER (TOPROL XL) 25 mg 24 hr tablet Take 0.5 tablets by mouth once daily. lisinopril 2.5 mg tablet Take 1 tablet by mouth once daily. ALLERGIES Allergen Reactions Azithromycin Hives Erythromycin Hives Tylenol [Acetaminop* Hives SOCIAL HISTORY: Social History Tobacco Use Smoking status: Every Day Current packs/day: 1.00 Average packs/day: 1 pack/day for 20.0 years (20.0 ttl pk-yrs) Types: Cigarettes Smokeless tobacco: Former Types: Snuff Tobacco comments: As per pt "I smoke 12-15 smokes a day, but when I drink I know its way more." Vaping Use Vaping status: Never Used Substance Use Topics Alcohol use: Yes Comment: 1 pint liquor per week, depends on weeks Drug use: Never As per HPI above No family history on file. REVIEW OF SYSTEMS: GENERAL: Negative for: Weight loss or gain, Fever, Chills, or Night sweats RESPIRATORY: Negative for: Cough, Blood in Sputum, Shortne (more content not included)... [facility] 04-12-2024 History of Present illness Narrative PRIMARY CARE PHYSICIAN: [address] FREYA [address] [id number] REFERRING PHYSICIAN: Gia Calloway MD [address] [id number] CHIEF COMPLAINT: Preoperative cardiac risk assessment prior to Whipple procedure by Dr. Calloway HISTORY OF PRESENT ILLNESS: Mr. Mcdaniel is a 63 year old male with a history of diabetes, hyperlipidemia, multiple prior TIAs, degenerative disc disease, cardiomyopathy with stage B heart failure, chronic pancreatitis from ongoing alcohol abuse and tobacco abuse who was referred to cardiology clinic for preoperative cardiac risk assessment prior to Whipple procedure. Patient reports a longstanding history of tobacco and alcohol abuse. He reports smoking on average half a pack a day for the last 45 years and is currently down to smoking 5 cigarettes daily. He does report a history of heavy alcohol abuse and reports he has been drinking since the age of 6. He reports that he was drinking on average 24 beers a day for decades with a maximum of 68 beers in a day. In the last couple years, he has transition to hard liquor and has been drinking at least 3 to 4 pints a week. In this setting, patient has developed chronic pancreatitis with recent MRI concerning for pancreatic mass/malignancy. He has been recommended Whipple procedure. As part of his evaluation, patient did recently undergo an echocardiogram revealing mild LV dysfunction with ejection fraction 45% with no significant valve disease. As a result, he was referred to cardiology clinic for further preoperative cardiac risk assessment. In discussion with the patient, he denies any complaints of chest pain, dyspnea on exertion, orthopnea, paroxysmal nocturnal dyspnea, lower extremity edema, presyncope, syncope, or palpitations. He is largely sedentary and does not engage in any regular exercise. He reports the most active thing he has done in the last several months is climb a flight of stairs. His underlying risk factors include insulin-dependent diabetes, multiple prior TIAs, hyperlipidemia and ongoing tobacco and alcohol abuse. He denies any history of known atherosclerotic cardiovascular disease, chronic kidney disease or clinical congestive heart failure. PAST MEDICAL HISTORY Diagnosis Date Alcohol abuse CHF (congestive heart failure) (HCC) Diabetes mellitus (HCC) Hx of chronic pancreatitis Hyperlipemia TIA (transient ischemic attack) PAST SURGICAL HISTORY Procedure Laterality Date ABDOMINAL SURGERY HX MEDICATIONS: pmovvh-[id number]-svxmjnd (CREON 12) 12,000-38,000 -60,000 unit delayed release capsule Take 1 capsule by mouth with meals and at bedtime. ondansetron HCl (ZOFRAN ORAL) Take by mouth. thiamine (VITAMIN B1) 100 mg tablet Take 1 tablet by mouth once daily. insulin lispro (HUMALOG KWIKPEN INSULIN) 100 unit/mL Inject 5 Units subcutaneously three times a day with meals. aspirin, enteric coated (ASPIRIN, ENTERIC COATED) 81 mg EC tablet Take 81 mg by mouth once daily. traZODone (DESYREL) 100 mg tablet Take 100 mg by mouth daily at bedtime. thiamine (VITAMIN B1) 100 mg tablet Take 100 mg by mouth once daily. ondansetron orally disintegrating (ZOFRAN ODT) 4 mg disintegrating tablet Take 1 tablet by mouth every 8 hours as needed. tamsulosin (FLOMAX) 0.4 mg Take 0.4 mg by mouth once daily. rosuvastatin (CRESTOR) 40 mg tablet Take 40 mg by mouth once daily. metFORMIN ER (GLUMETZA) 1,000 mg 24 hr tablet Take 1,000 mg by mouth two times a day. sertraline (ZOLOFT) 50 mg tablet Take 50 mg by mouth once daily. montelukast (SINGULAIR) 10 mg tablet Take 10 mg by mouth daily at bedtime. LORATADINE ORAL Take 10 mg by mouth once daily. LANTUS SOLOSTAR U-100 INSULIN 100 unit/mL (3 mL) Inject 25 Units subcutaneously two times a day. metoprolol succinate ER (TOPROL XL) 25 mg 24 hr tablet Take 0.5 tablets by mouth once daily. lisinopril 2.5 mg tablet Take 1 tablet by mouth once daily. ALLERGIES Allergen Reactions Azithromycin Hives Erythromycin Hives Tylenol [Acetaminop* Hives SOCIAL HISTORY: Social History Tobacco Use Smoking status: Every Day Current packs/day: 1.00 Average packs/day: 1 pack/day for 20.0 years (20.0 ttl pk-yrs) Types: Cigarettes Smokeless tobacco: Former Types: Snuff Tobacco comments: As per pt "I smoke 12-15 smokes a day, but when I drink I know its way more." Vaping Use Vaping status: Never Used Substance Use Topics Alcohol use: Yes Comment: 1 pint liquor per week, depends on weeks Drug use: Never As per HPI above No family history on file. REVIEW OF SYSTEMS: GENERAL: Negative for: Weight loss or gain, Fever, Chills, or Night sweats RESPIRATORY: Negative for: Cough, Blood in Sputum, Shortness of breath, Wheezing CARDIAC: Negative history of chest pain on exertion, dyspnea on exertion, orthopnea, paroxysmal nocturnal dyspnea, lower extremity edema, presyncope, syncope, or palpitations PHYSICAL EXAMINATION: BP 108/78 Pulse 95 Wt 223 lb 6.4 oz (101.3kg) GENERAL: Well appearing, in no acute distress. LUNGS: Clear to auscultation bilaterally, no rales, wheezing, or rhonchi. HEART: Regular rate and rhythm; normal S1/S2; no murmurs, gallops, or rubs EXTREMETIES: No peripheral edema. Grade 2/4 distal pulses bilaterally. NEURO: Grossly nonfocal CARDIAC TESTING: EKG: EKG, 04/12/2024: Normal sinus rhythm. Normal EKG Echocardiogram: OSH TTE, 03/29/2024: Mild LV systolic dysfunction with ejection fraction 45%. Normal diastolic function. No significant valve disease. OSH TTE, 08/02/2020: Mild LV dysfunction with globally hypokinetic wall motion with ejection fraction 35%. Moderate diastolic dysfunction. No significant valve disease. OSH TTE, 06/15/18: Normal LV systolic function with ejection fraction 65%. No significant valve disease. RVSP 43 mmHg. Stress Testing: OSH nuclear stress test 09/09/2020: No evidence of myocardial ischemia or scar. EF 61%. I have personally reviewed the Electrocardiogram, Laboratory Testing, and reports that his prior echocardiograms as detailed above. ASSESSMENT: Mr. Mcdaniel is a 63 year old male with a history of diabetes, hyperlipidemia, multiple prior TIAs, degenerative disc disease, cardiomyopathy with stage B heart failure, chronic pancreatitis from ongoing alcohol abuse and tobacco abuse who was referred to cardiology clinic for preoperative cardiac risk assessment prior to Whipple procedure. PLAN AND RECOMMENDATIONS: Cardiomyopathy with stage B heart failure: In review of patient's prior studies, he was noted to have moderate LV dysfunction on prior echocardiogram back in July 2020. He did subsequently undergo a stress test a month later in August 2020 revealing no evidence of myocardial ischemia or scar with normal LV function with ejection fraction 61%. He did have a repeat echocardiogram earlier this month revealing mild LV dysfunction with ejection fraction 45%. Given patient's history of chronic alcohol abuse, I suspect his cardiomyopathy is most likely alcoholic in etiology. However, as patient does have a longstanding history of tobacco use along with insulin-dependent diabetes, cannot rule out underlying obstructive coronary disease. As such, I recommended he have further ischemic evaluation with a nuclear stress test. Patient would like to try walking on the treadmill; as such I have ordered for him to have a treadmill nuclear stress test with option to convert to a chemical test if necessary. Otherwise, I did recommend starting on optimal medical therapy for his underlying cardiomyopathy with low-dose metoprolol XL 12.5 mg daily and lisinopril 2.5 mg daily. I will plan on checking a repeat basic metabolic panel in approximately 10 days' time to ensure his electrolytes and kidney function remain stable with this change. Otherwise, I did savings counselor him on the importance of following a 2 g sodium and 2 L fluid restriction to prevent potential heart failure exacerbation. Finally, given strong suspicion for alcoholic cardiomyopathy, I did strongly recommend he quit drinking altogether as per below. He understands that with ongoing alcohol abuse, he will likely develop worsened LV dysfunction and increased risk for clinical congestive heart failure. 2. Hyperlipidemia: Patient continues on high intensity statin therapy with Lipitor in the setting of underlying insulin-dependent diabetes. I will plan on checking a fasting lipid profile in the next several weeks. 3. Tobacco abuse: Patient reports a longstanding history of smoking on average half a pack a day for 45 years. He is currently down to smoking 5 cigarettes daily. I did strongly savings counselor him on the importance of quitting smoking altogether. 4. Alcohol abuse: Patient reports a longstanding history of alcohol abuse ever since the age of 6. He does report drinking on average 24 beers for several decades. More recently, he has been drinking 3 to 4 pints of hard liquor on a weekly basis. Given his underlying cardiomyopathy and chronic pancreatitis, I strongly recommended he quit drinking altogether. Similarly, he reports he was told he would need to stop drinking for at least 4 weeks prior to his surgery as well. Patient reports he is going to try to stop drinking as of this upcoming weekend. I did recommend he taper off his alcohol use as he would otherwise be at high risk for withdrawal. 5. Pre-operative cardiac assessment: Mr. Mcdaniel does not have any high-risk features of unstable angina, decompensated heart failure, severe valve disease, or malignant arrhythmias. His RCRI score is 3. Additionally, he leads an overall sedentary lifestyle and does not engage in any regular exercise. He also does have a history of underlying cardiomyopathy although without geeta heart failure symptoms. For further evaluation, I recommended he have a nuclear stress test to ensure no evidence of underlying obstructive coronary disease. If this is unremarkable, he will be at overall moderate risk of cardiac complications from an anticipated elevated risk intraperitoneal surgery. I did otherwise recommend he start optimal medical therapy for his underlying cardiomyopathy as per above with low-dose metoprolol XL and lisinopril. Kevin Molina MD Please Note: The time of this note does not reflect the time I saw this patient today, but the time of this documentation. Also, this note has been created using [employer], a speech recognition software program, and may contain errors including punctuation, grammar, spelling, gender, and inappropriate words or phrases that pertain to the system. Patient denies cardiac complaints or symptoms. documented in this encounter [facility] 04-12-2024 Instructions Kevin Molina MD - 04/12/2024 4:06 PM EDT Start metoprolol and lisinopril Bloodwork in 10-14 days after starting above meds Stress test Quit drinking/smoking Limit fluids to 64 ounces daily; limit sodium to 2000 mg daily documented in this encounter [facility] 04-12-2024 Note HNO ID: [id number] Author: ABIGAIL BERNAL MA Service: ? Author Type: Harness Puller Type: Progress Notes Filed: 04/12/2024 16:37 Note Text: Patient denies cardiac complaints or symptoms. [facility] 04-11-2024 Telephone encounter Note Summary: SOC Updates SURGERY OPTIMIZATION CLINIC ART CONSERVATOR NOTE Discussed the purpose of the Surgery Optimization Clinic. Reviewed modifiable risk factors identified in the Surgery Optimization Clinic: Spoke to Adia on the phone for updates. EXERCISE: He has not started wearing his pedometer to track his steps, and he has not increased his activity. Encouraged to increase activity as much as possible prior to surgery. BREATHING: He was using his IS a few times a day, but has not used this recently. Encouraged to increase use to 30-40 breaths/day. He still continues to smoke, about 5 a day still, does not want patches or gum ordered at this time. NUTRITION: Appetite is still "hit or miss." Has met with a Pneumatic Tool Operator. Reports has glucometer reader, BG has been under 200 recently. He is still drinking, has repeat labs from surgeon on 04/25/2024. Suggested a support group. Reviewed high protein food sources. Encouraged to include a protein source with each meal. Impact Advanced Recovery to start 5 days prior to procedure, BID. STRESS RELIEF: Education given to patient for stress reduction/management. Patient does not seem motivated to participate in plan of care. He is on Zoloft 50 mg, but has been on this dose for some time now, suggested perhaps asking PCP for an increase in dosage. Stressed the importance of physical activity and its effects on mood. OR DATE: TBD Agreeable to a follow up call in: three weeks Tracey Brown APRN.TETE April 11, 2024 [facility] 04-11-2024 Miscellaneous Notes Summary: SOC Updates SURGERY OPTIMIZATION CLINIC ART CONSERVATOR NOTE Discussed the purpose of the Surgery Optimization Clinic. Reviewed modifiable risk factors identified in the Surgery Optimization Clinic: Spoke to Adia on the phone for updates. EXERCISE: He has not started wearing his pedometer to track his steps, and he has not increased his activity. Encouraged to increase activity as much as possible prior to surgery. BREATHING: He was using his IS a few times a day, but has not used this recently. Encouraged to increase use to 30-40 breaths/day. He still continues to smoke, about 5 a day still, does not want patches or gum ordered at this time. NUTRITION: Appetite is still "hit or miss." Has met with a Pneumatic Tool Operator. Reports has glucometer reader, BG has been under 200 recently. He is still drinking, has repeat labs from surgeon on 04/25/2024. Suggested a support group. Reviewed high protein food sources. Encouraged to include a protein source with each meal. Impact Advanced Recovery to start 5 days prior to procedure, BID. STRESS RELIEF: Education given to patient for stress reduction/management. Patient does not seem motivated to participate in plan of care. He is on Zoloft 50 mg, but has been on this dose for some time now, suggested perhaps asking PCP for an increase in dosage. Stressed the importance of physical activity and its effects on mood. OR DATE: TBD Agreeable to a follow up call in: three weeks Tracey Brown APRN.TETE April 11, 2024 documented in this encounter [facility] 04-02-2024 Note Addended by: IZA ALANIZ on: 04/02/2024 09:18 AM Modules accepted: Orders [facility] 04-02-2024 Miscellaneous Notes Addended by: IZA ALANIZ on: 04/02/2024 09:18 AM Modules accepted: Orders documented in this encounter [facility] 03-26-2024 Telephone encounter Note Patient scheduled for DM ED 04-08 Webster And scheduled for f/u 05-27-24 @ 11:40 SRINATH Ruiz March 26, 2024 2:45 PM [facility] 03-26-2024 Miscellaneous Notes Patient scheduled for DM ED 04-08 Webster And scheduled for f/u 05-27-24 @ 11:40 SRINATH Ruiz March 26, 2024 2:45 PM Please schedule the patient for diabetes education, also can you please schedule the patient in 1-2 months (20 minutes slot) documented in this encounter [facility] 03-22-2024 Telephone encounter Note Summary: SOC Updates SURGERY OPTIMIZATION CLINIC ART CONSERVATOR NOTE Discussed the purpose of the Surgery Optimization Clinic. Reviewed modifiable risk factors identified in the Surgery Optimization Clinic: Spoke with Adia on the phone for updates. EXERCISE: He has not started tracking his steps with his pedometer. Encouraged to do so. Encouraged to increase activity as much as possible prior to surgery. BREATHING: He is using his IS occasionally during the day. Encouraged to increase use to 30-40 breaths/day. He is still smoking, but down to about 2-3 a day. Encouraged complete cessation. NUTRITION: Appetite is "hit or miss." Reviewed high protein food sources. Encouraged to include a protein source with each meal. Impact Advanced Recovery to start 5 days prior to procedure, BID. STRESS RELIEF: Education given to patient for stress reduction/management. OR DATE: TBD Agreeable to a follow up call in: two weeks Tracey Brown APRN.TETE March 22, 2024 -He was seen in ED yesterday for a dog bite. He was started on Augmentin. -He is still drinking some, encouraged complete cessation [facility] 03-22-2024 Miscellaneous Notes Summary: SOC Updates SURGERY OPTIMIZATION CLINIC ART CONSERVATOR NOTE Discussed the purpose of the Surgery Optimization Clinic. Reviewed modifiable risk factors identified in the Surgery Optimization Clinic: Spoke with Adia on the phone for updates. EXERCISE: He has not started tracking his steps with his pedometer. Encouraged to do so. Encouraged to increase activity as much as possible prior to surgery. BREATHING: He is using his IS occasionally during the day. Encouraged to increase use to 30-40 breaths/day. He is still smoking, but down to about 2-3 a day. Encouraged complete cessation. NUTRITION: Appetite is "hit or miss." Reviewed high protein food sources. Encouraged to include a protein source with each meal. Impact Advanced Recovery to start 5 days prior to procedure, BID. STRESS RELIEF: Education given to patient for stress reduction/management. OR DATE: TBD Agreeable to a follow up call in: two weeks Tracey Brown APRN.CNP March 22, 2024 -He was seen in ED yesterday for a dog bite. He was started on Augmentin. -He is still drinking some, encouraged complete cessation documented in this encounter [facility] 03-22-2024 Note HNO ID: [id number] Author: SELMA ALMEIDA RT(R) Service: Nursing Author Type: Technologist Type: Progress Notes Filed: 03/22/2024 00:27 Note Text: Radiology Service Progress Note PATIENT NAME: Kyle Mcdaniel DATE OF SERVICE: March 22, 2024 TIME: 12:27 AM PATIENT IDENTITY VERIFICATION COMPLETED USING TWO (2) IDENTIFIERS: Name and Date of confirmed by patient verbally and Name and Date of confirmed by identification band. FALL SCREENING: Has the patient had 2 falls in the last year or 1 fall with injury or currently using an Ambulatory Assistive Device (Walker, Cane, Wheelchair, Crutches, etc.)? No PATIENT GENDER DATA: Male PATIENT RELEVANT IMPLANT DATA REVIEWED: Not Applicable PATIENT PRESENTS WITH AN IMPLANTABLE OR ATTACHED FINANCIAL COACH: No RADIOLOGY DEPARTMENT: General X-ray: Exam(s) Completed: Upper Extremity X-Ray(s): Forearm, left and Hand, bilateral PERIPHERAL IV DATA: Not applicable SIGNED BY: RT Willy(R) March 22, 2024 12:[address] [facility] 03-19-2024 Telephone encounter Note Please schedule the patient for diabetes education, also can you please schedule the patient in 1-2 months (20 minutes slot) [facility] 03-14-2024 Note Addended by: GIA ROBLES on: 03/14/2024 01:20 PM Modules accepted: Orders [facility] 03-14-2024 Miscellaneous Notes Addended by: GIA CALLOWAY on: 03/14/2024 01:20 PM Modules accepted: Orders documented in this encounter [facility] 03-13-2024 Telephone encounter Note Patient called into the office, verified by name and . Reports that he spoke with Dr. Calloway yesterday about needing to see a groundskeeping yardman. Patient stated there's no way he's going to do that, he can't afford to keep driving to [place] and if she's not going to just do my surgery then I want to cancel everything and not have surgery. Advised patient that I would let dr. Calloway know and surgery would be cancelled, patient voiced understanding. Malathi PATTERSON [facility] 03-13-2024 Miscellaneous Notes Patient called into the office, verified by name and . Reports that he spoke with Dr. Calloway yesterday about needing to see a groundskeeping yardman. Patient stated there's no way he's going to do that, he can't afford to keep driving to [place] and if she's not going to just do my surgery then I want to cancel everything and not have surgery. Advised patient that I would let dr. Calloway know and surgery would be cancelled, patient voiced understanding. Malathi PATTERSON documented in this encounter [facility] 03-12-2024 History of Present illness Narrative VIRTUAL VISIT PROGRESS NOTE This is a virtual visit using Audio Only Visit. It required patient-provider interaction for the medical decision making as documented below. I have communicated my name and active licensure. The patient's identity and physical location were verified at the time of this visit. Either the patient or their legal product support representative has been informed of the risks and benefits of -- and alternatives to -- treatment through a remote evaluation and consents to proceed with the evaluation remotely. Kyle Mcdaniel is a 63 year old male seen for follow-up in planning pancreatectomy. Discussed that after he was evaluated in surgical optimization clinic, he was found to need cardiology optimization and clearance and we will set him up with a groundskeeping yardman here to facilitate. Also noted that he has had alcohol intake despite telling me that he no longer drinks, as evidenced by his elevated alcohol level when he was in the ER a few days ago. Discussed need for complete abstinence from alcohol both pre and post op which he was in agreement with. HISTORY REVIEWED (electronic chart updated): PAST MEDICAL HISTORY Diagnosis Date Alcohol abuse Diabetes mellitus (HCC) Hx of chronic pancreatitis Hyperlipemia TIA (transient ischemic attack) PAST SURGICAL HISTORY Procedure Laterality Date ABDOMINAL SURGERY HX No family history on file. Social History Tobacco Use Smoking status: Every Day Current packs/day: 1.00 Average packs/day: 1 pack/day for 20.0 years (20.0 ttl pk-yrs) Types: Cigarettes Smokeless tobacco: Former Types: Snuff Tobacco comments: As per pt "I smoke 12-15 smokes a day, but when I drink I know its way more." Vaping Use Vaping status: Never Used Substance Use Topics Alcohol use: Yes Comment: 1 pint liquor per week, depends on weeks Drug use: Never Current Outpatient Medications Medication Sig ergocalciferol 50,000 unit capsule (VITAMIN D2, DRISDOL) Take 1 capsule by mouth one time a week. ondansetron HCl (ZOFRAN ORAL) Take by mouth. thiamine (VITAMIN B1) 100 mg tablet Take 1 tablet by mouth once daily. oxyCODONE IR (ROXICODONE) 5 mg immediate release tablet Take 1 tablet by mouth every 6 hours as needed for pain for up to 7 days. semaglutide (OZEMPIC) 0.25 mg or 0.5 mg (2 mg/3 mL) pen Inject 0.5 mg subcutaneously one time a week. levoFLOXacin (LEVAQUIN) 750 mg tablet One po daily for 3 days,first dose 2 hours prior procedure (Patient not taking: Reported on 02/23/2024) insulin lispro (HUMALOG KWIKPEN INSULIN) 100 unit/mL Inject 5 Units subcutaneously three times a day with meals. aspirin, enteric coated (ASPIRIN, ENTERIC COATED) 81 mg EC tablet Take 81 mg by mouth once daily. traZODone (DESYREL) 100 mg tablet Take 100 mg by mouth daily at bedtime. thiamine (VITAMIN B1) 100 mg tablet Take 100 mg by mouth once daily. (Patient not taking: Reported on 01/16/2024) mghdyh-fejdazgu-tknzprw (CREON 12) 12,000-38,000 -60,000 unit delayed release capsule Take 1 capsule by mouth with meals and at bedtime. ondansetron orally disintegrating (ZOFRAN ODT) 4 mg disintegrating tablet Take 1 tablet by mouth every 8 hours as needed. tamsulosin (FLOMAX) 0.4 mg Take 0.4 mg by mouth once daily. rosuvastatin (CRESTOR) 40 mg tablet Take 40 mg by mouth once daily. metFORMIN ER (GLUMETZA) 1,000 mg 24 hr tablet Take 1,000 mg by mouth two times a day. sertraline (ZOLOFT) 50 mg tablet Take 50 mg by mouth once daily. montelukast (SINGULAIR) 10 mg tablet Take 10 mg by mouth daily at bedtime. LORATADINE ORAL Take 10 mg by mouth once daily. LANTUS SOLOSTAR U-100 INSULIN 100 unit/mL (3 mL) Inject 25 Units subcutaneously two times a day. No current facility-administered medications for this visit. ALLERGIES Allergen Reactions Azithromycin Hives Erythromycin Hives Tylenol [Acetaminop* Hives PHYSICAL EXAMINATION: VIDEO EXAM: (if completed, performed via video enabled technology) No exam performed ASSESSMENT/PLAN: 63 year old male with history of severe acute pancreatitis managed surgically in [place] (in the setting of EtOH use) in 2018 and more recent recurrent acute pancreatitis managed at (details unclear) who was admitted at [facility] with liver abscess and cholangitis managed with an IR drain and ERCP with stent placement. MRI concerning for pancreatic mass/malignancy. EUS/FNA showed atypical cells. --Refer to cardiology for pre-op optimization/risk stratification --Echo scheduled for 03/29 --Discussed complete alcohol cessation There are no Patient Instructions on file for this visit. I spent a total of 20 minutes on the date of the service which included preparing to see the patient, completing clinical documentation, counseling and educating the patient/family/caregiver, ordering medications, tests, or procedures, communicating with other HCPs (not separately reported), independently interpreting results (not separately reported), communicating results to the patient/family/caregiver, and care coordination (not separately reported) Gia Calloway MD documented in this encounter [facility] 03-12-2024 Telephone encounter Note Chart reviewed by Dr. Villela, Anesthesia, he would like a repeat ECHO and cardiac clearance prior to surgery. Surgeon's office aware. ECHO ordered and scheduled at [facility] on 03/29/2024 at 10am. -Tracey [facility] 03-12-2024 Miscellaneous Notes Chart reviewed by Dr. Villela, Anesthesia, he would like a repeat ECHO and cardiac clearance prior to surgery. Surgeon's office aware. ECHO ordered and scheduled at [facility] on 03/29/2024 at 10am. -Tracey documented in this encounter [facility] 03-08-2024 History of Present illness Narrative Summary: SOC Images from the original note were not included. Tracey Brown APRN.CNP Surgery [facility] (SOC) [address] [facility] [address], [address] [place] [id number] Patient: Kyle Mcdaniel Date of : 1960 Subjective Scheduled OR Date: 04/18/2024 Surgeon: Dr. Calloway PCP: Mago Elliott MD DIAGNOSES: Pancreatic Mass PLANNED PROCEDURE: Open Whipple HPI Kyle Mcdaniel is a 63 year old male, who was recently evaluated for surgery and has elected to proceed with the above mentioned surgical intervention. Patient has a h/o TIAs, DM2, HLD, ETOH abuse, prostate cancer. Patient also has a h/o chronic pancreatitis. He recently underwent an ERCP/EUS with FNA and cytology showed atypical cells. Patient has met with Dr. Calloway and surgery is scheduled on 04/18/2024. Patient reports he is in a lot of pain today, located mid upper abdomen, rating it a 9/10. He was seen two days ago in the ED for this pain and nausea, he was given fluids, Morphine, and Zofran which improved his symptoms. He does not have anything for pain and does not want to see Pain Management. He does have Zofran at home which helps with his nausea. He will occasionally vomit as well. He has had a decreased appetite and is eating smaller meals, this has also helped with his pain and nausea. He also reports occasionally alternating diarrhea and constipation. Denies any blood in the stool. He also reports he will occasionally have pain the originates in the mid back and travels to the mid chest, this is not associated with any certain activity and usually lasts about 3 minutes. He has also been having SOB when he has his ABD pain. He can climb a flight of stairs without SOB oe CP. Denies any syncope or falls. Denies any recent fevers or chills. PAST MEDICAL HISTORY PAST MEDICAL HISTORY Diagnosis Date Alcohol abuse Diabetes mellitus (HCC) Hx of chronic pancreatitis Hyperlipemia TIA (transient ischemic attack) FAMILY HISTORY History reviewed. No pertinent family history. PAST SURGICAL HISTORY PAST MEDICAL HISTORY Diagnosis Date Alcohol abuse Diabetes mellitus (HCC) Hx of chronic pancreatitis Hyperlipemia TIA (transient ischemic attack) ALLERGIES ALLERGIES Allergen Reactions Azithromycin Hives Erythromycin Hives Tylenol [Acetaminop* Hives MEDICATIONS Current Outpatient Medications Medication Sig Dispense Refill ergocalciferol 50,000 unit capsule (VITAMIN D2, DRISDOL) Take 1 capsule by mouth one time a week. 8 capsule 0 ondansetron HCl (ZOFRAN ORAL) Take by mouth. thiamine (VITAMIN B1) 100 mg tablet Take 1 tablet by mouth once daily. 30 tablet 2 semaglutide (OZEMPIC) 0.25 mg or 0.5 mg (2 mg/3 mL) pen Inject 0.5 mg subcutaneously one time a week. levoFLOXacin (LEVAQUIN) 750 mg tablet One po daily for 3 days,first dose 2 hours prior procedure (Patient not taking: Reported on 02/23/2024) 3 tablet 0 insulin lispro (HUMALOG KWIKPEN INSULIN) 100 unit/mL Inject 5 Units subcutaneously three times a day with meals. aspirin, enteric coated (ASPIRIN, ENTERIC COATED) 81 mg EC tablet Take 81 mg by mouth once daily. traZODone (DESYREL) 100 mg tablet Take 100 mg by mouth daily at bedtime. thiamine (VITAMIN B1) 100 mg tablet Take 100 mg by mouth once daily. (Patient not taking: Reported on 01/16/2024) ruiubz-pablhtxu-vvhynta (CREON 12) 12,000-38,000 -60,000 unit delayed release capsule Take 1 capsule by mouth with meals and at bedtime. ondansetron orally disintegrating (ZOFRAN ODT) 4 mg disintegrating tablet Take 1 tablet by mouth every 8 hours as needed. 15 tablet 0 tamsulosin (FLOMAX) 0.4 mg Take 0.4 mg by mouth once daily. rosuvastatin (CRESTOR) 40 mg tablet Take 40 mg by mouth once daily. metFORMIN ER (GLUMETZA) 1,000 mg 24 hr tablet Take 1,000 mg by mouth two times a day. sertraline (ZOLOFT) 50 mg tablet Take 50 mg by mouth once daily. montelukast (SINGULAIR) 10 mg tablet Take 10 mg by mouth daily at bedtime. LORATADINE ORAL Take 10 mg by mouth once daily. LANTUS SOLOSTAR U-100 INSULIN 100 unit/mL (3 mL) Inject 25 Units subcutaneously two times a day. No current facility-administered medications for this visit. Review of Systems Review of Systems Constitutional: Positive for appetite change. Negative for chills, fever and unexpected weight change. HENT: Negative for trouble swallowing. +occasional blurry vision especially when looking at phone Respiratory: Positive for shortness of breath (with ABD pain). Cardiovascular: Positive for chest pain (radiating from mid back to mid chest, not associated with activity). Negative for palpitations and leg swelling. Gastrointestinal: Positive for abdominal pain, constipation, diarrhea, nausea and vomiting. Negative for blood in stool. Genitourinary: Negative for dysuria and hematuria. Musculoskeletal: Positive for arthralgias (left knee pain). Skin: Negative for rash and wound. Neurological: Negative for dizziness, syncope and headaches. Psychiatric/Behavioral: Negative for self-injury. OBJECTIVE PHYSICAL EXAMINATION: BP 162/108 Pulse 73 Ht 185.4 cm (6' 1") Wt 100.2 kg (221 lb) SpO2 96% BMI 29.16 kg/m Body mass index is 29.16 kg/m . Physical Exam Vitals and nursing note reviewed. Eyes: Pupils: Pupils are equal, round, and reactive to light. Neck: Vascular: No carotid bruit. Cardiovascular: Rate and Rhythm: Normal rate and regular rhythm. Pulses: Normal pulses. Heart sounds: Normal heart sounds. Pulmonary: Effort: Pulmonary effort is normal. Breath sounds: Normal breath sounds. Abdominal: General: Bowel sounds are normal. Musculoskeletal: Right lower leg: No edema. Left lower leg: No edema. Skin: General: Skin is warm and dry. Findings: No erythema or lesion. Neurological: Mental Status: He is alert and oriented to person, place, and time. Psychiatric: Mood and Affect: Mood normal. ADVANCED DIRECTIVES ADVANCED CARE PLANNING: Has no interest in creation of advance directives. SURROGATE DECISION MAKERS: Spouse, Adia, number on file and verified MENTAL STATUS: 4AT Delirium Test: -Alertness: Normal=0 Mild sleepiness for <10 seconds after waking, then normal=0 Clearly abnormal=4 -Abbreviated Mental Test: Age, , Location, current year(No mistake=0, One mistake=1, Two or more=2) -Attention: Months of the year backwards-(7 or more=0, less than 7=1, intestable=2) -Acute Change: Fluctuation in alertness, cognition, hallucinations over the past 2 weeks (No=0, yes=4) Total: 0 4 or more:possible delirium and/or cognitive impairment 1-3: possible cognitive impairment 0:Delirium or severe cognitive impairment unlikely Discussed possibility of delirium during hospital course Social History: Limited finances/resources: no Home assistance/caregiver required after surgery: no Currently involved with Case Management/Elevator Runner: no Home environment/homeless/hygiene concerns: no PHQ-9 Questionnaire: On Zoloft 50 mg, Trazodone 100 mg, Denies any major symptoms No data to display (0-4) minimal depression, (5-9) mild depression, (10-14) moderate depression, (15-19) moderately severe depression, (20-27) severe depression NORMAN-7 (Anxiety): On Zoloft 50 mg, Trazodone 100 mg, Denies any major symptoms No Data Recorded (0-4) minimal anxiety, (5-9) mild anxiety, (10-14) moderate anxiety, (15-21) severe anxiety Functional Status: Clinical Frailty Scale: -Very Fit- Exercise regularly (1) -Well- Occasionally active (2) -Managing Well- Not regularly active (3) -Vulnerable- Limited activity/tired throughout day/"slowed up" (4) -Mildly Frail- Help needed with ADLs (finances, medications, transportation) (5) -Moderately Frail- Help with all outside activities and with keeping the house, stairs/bathing/dressing (6) -Severely Frail- Completely dependent for personal care (7) -Very Severely frail- Approaching End of Life (8) -Terminally Ill- Life expectancy < 6 months (9) SCORE: 2 Score 1-3- Walking Program Score 4-6- Referral to Outpatient PT/OT Score 7-9- Referral to Home PT/OT Functional assessment: WNL=Within normal limits Substance Abuse: h/o ETOH abuse, reports sometimes he goes weeks without drinking, sometimes he drinks a lot during the week The Alcohol Use Disorders Identification Test (AUDIT): No data to display The scoring instructions are as follows: Risk Level Intervention AUDIT score Zone I Alcohol Education 0-7 Zone II Simple Advice 8-15 Zone III Simple Advice plus Brief Counseling and Continued Monitoring 16-19 Zone IV Referral to Specialist for Diagnostic Evaluation and Treatment 20-40 SMOKER/TOBACCO USE: Yes -Patient smokes: down to 5-8 a day, 20 pack year -If yes, was the patient provided with cessation education: Yes -If yes, would the patient like pharmacotherapy to assist in cessation: does not want at this time -Patient was advised to completely stop smoking prior to initiation of nicotine replacement therapy. Drug Abuse Screen Test (DAST-10): Denies any major symptoms No data to display Sleep Apnea STOP BANG Questionnaire 1. Snoring Do you snore loudly (louder than talking or loud enough to be heard through closed doors)? NO 2. Tired Do you often feel tired, fatigued, or sleepy during daytime? NO 3. Observed Has anyone observed you stop breathing during your sleep? NO 4. Blood Pressure Do you have or are you being treated for high blood pressure? NO 5. BMI BMI more than 35 kg/m2? NO 6. Age Age over 50 yr old? YES 7. Neck circumference Neck circumference greater than 40 cm? NO 8. Gender Gender male? YES High risk of SENA: answering yes to three or more items Low risk of SENA: answering yes to less than three items Nutrition: Perioperative Nutrition Score (MARIOLA) BMI <18.5: No BMI <20 if age >65: No Eating less than 50% of normal diet in the preceding week: yes Unplanned weight loss >10% in past 6 months: No Albumin Level less than 3: no Albumin Date Value Ref Range Status 03/06/2024 4.3 3.9 - 4.9 g/dL Final Dyspnea Assessment (mMRC Dyspnea Scale): Dx of COPD/Asthma: No -I only get breathless with strenuous exercise 0 -I get SOB when hurrying on level ground or walking up a slight hill 1 -On level ground, I walk slower than people of the same age because of breathlessness, or have to stop for breath when walking at my own pace. 2 -I stop for breath after walking about 100 yards or after a few minutes on level ground 3 -I am too breathless to leave the house or I am breathless when dressing 4 Score: 0 Venous Thromboembolism Risk Assessment: Hx clotting disorder: No Hx PE/DVT: yes, Bilateral DVTs in arms and legs in 2019 while hospital, was on coumadin OAC Use: No ASA use: Yes: 81 mg daily, h/I TIAs most recent in 2002 Pulmonology: Asthma: no COPD: no Hypoventilation syndrome: no Retail Greeter: NA Recent exacerbation: No recent PNA or bronchitis Cardiac: Beta Ramsey use: No Hx of CAD: no Hx of HLD: yes, on statin CHF: See ECHO below Prior PA: no Hx abnormal EKG: no Hx abnormal heart rhythm: no Valvular heart disease: no Hx endocarditis: no PAD: no PVD: no CVA: yes,TIA, most recently 2002 HTN: BP elevated at appt, 162/108, reports intense ABD pain Pulmonary HTN: no Hx cardiovascular surgery: no Foot Miter Operator: NA EKG 01/18/2024: Diagnosis: Normal sinus rhythm Low voltage QRS Borderline ECG When compared with ECG of 29-Dec-2023 09:00, No significant change was found Confirmed by NETTA KUMAR MD ([id number]) on 01/19/2024 5:48:07 PM ECHO 08/02/2020: NEGATIVE BUBBLE STUDY. NORMAL CHAMBER SIZES. MILD INFEROLATERAL WALL HYPERTROPHY. MILDLY DECREASED LEFT VENTRICULAR EJECTION FRACTION WITH GLOBAL HYPOKINESIS AND A CALCULATED EJECTION FRACTION BY FOX'S BI-PLANE OF 35%. MODERATE DIASTOLIC DYSFUNCTION WITH E AND A WAVE REVERSAL WITH VALSALVA. NORMAL RIGHT VENTRICULAR GLOBAL SYSTOLIC FUNCTION. DILATED INFERIOR VENA CAVA WITH POOR INSPIRATORY COLLAPSE CONSISTENT WITH ELEVATED RIGHT ATRIAL PRESSURES. MILD MITRAL REGURGITATION. MILD TRICUSPID REGURGITATION. ESTIMATED PULMONARY ARTERY PRESSURE IS 29 MMHG. COMPARED TO PREVIOUS COMPLETE ECHO DATED 04/28/18: 1. DEFINITY CONTRAST UTILIZED TO ENHANCE QUALITY OF IMAGES. 2. NORMAL LEFT VENTRICULAR CAVITY SIZE AND SYSTOLIC FUNCTION WITH A VISUALLY ESTIMATED EJECTION FRACTION OF 65 %. (DECREASED TO 35%) 3. MILD DIASTOLIC DYSFUNCTION. (MODERATE DIASTOLIC DYSFUNCTION ON TODAY'S EXAM) 4. MILD CONCENTRIC LEFT VENTRICULAR HYPERTROPHY. (NORMAL SEPTAL THICKNESS ON TODAY'S EXAM) Left Atrium: Normal left atrial size. Left atrial volume index is 18 mLm2. Right Ventricle: Normal right ventricular size. Normal right ventricular global systolic function. Tricuspid Annular Plane Systolic Excursion (TAPSE) is 1.9 cm. Tricuspid Annular Plane Systolic Velocity (TAPSV) is 10 cm/s. Right Atrium: Normal right atrial size. Dilated inferior vena cava with poor inspiratory collapse consistent with elevated right atrial pressures. Mitral Valve: Mild leaflet thickening. Mild mitral regurgitation. No evidence of mitral stenosis. Aortic Valve: Structurally normal aortic valve. No evidence of aortic regurgitation. No evidence of aortic stenosis. Tricuspid Valve: Normally structured tricuspid valve. Mild tricuspid regurgitation. No evidence of tricuspid stenosis. Estimated pulmonary artery pressure is 29 mmHg. Pulmonic Valve: Not well visualized. Trace pulmonic regurgitation. No evidence of valvular pulmonic stenosis. Aorta: Normal aortic root diameter. Pericardium: No evidence of pericardial effusion. Pleural effusion versus mirror image artifact. Masses / Shunts: No masses, shunts or thrombi seen. Negative Bubble Study. ASSESSMENT/PLAN: Kyle Mcdaniel is a 63 year old male, who was recently evaluated for surgery. Patient has a h/o TIAs, DM2, HLD, ETOH abuse, prostate cancer. Patient also has a h/o chronic pancreatitis. He recently underwent an ERCP/EUS with FNA and cytology showed atypical cells. Patient has met with Dr. Calloway and surgery is scheduled on 04/18/2024. Vulnerabilities Assessed at Visit: 1.) Smoker: 20 pack years, down to 5-8 cigarettes a day, encouraged complete cessation, does not want patches/gum ordered at this time, does not want referral to Smoking Clinic at this point 2.) ETOH abuse: can go weeks without drinking, no h/o DTs or withdrawal, encouraged slowly decreasing amount prior to surgery under medical supervision 3.) DM2: A1C 10.1 10/2023, will repeat, reports improved readings ranged from 99-300 past week. ADA diet information given, does not want referral to Pneumatic Tool Operator or Endocrinology at this point 4.) Cardiac:Decreased EF 35% per ECHO 2020, no repeat study. Was previously on Coreg, couldn't tolerate due to bradycardia. Does not follow with Cardio. Elevated BP reading in office today, 162/108, reports intense ABD pain, does not check BP at home, does occasional have blurry vision, mostly looking at phone screen. Reports METs >5. Does have CP (originating from mid back), and SOB when he is having ABD pain, not associated with activity. Recommended Medical Clearance NUTRITION: MARIOLA score: positive Albumin (g/dL) Date Value 03/06/2024 4.3 -Education provided with reference material given to patient -Impact nutritional supplements given to start 5 days prior to surgery, BID -Consult to RD, does not want at this time, will order inpatient -Vitamin D 50,000 units weekly x 8 -Vitamin D Level 22.9 04/2018 -Make sure to eat source of lean protein at each meal, aim for 78 grams of protein a day -Aim for 2 servings of leafy green vegetables a day ANEMIA: No Hematocrit Date Value Ref Range Status 03/06/2024 47.9 39.0 - 51.0 % Final -Hbg 16.1 03/06/2024 -Was on Vitamin B1, h/o ETOH abuse, will reorder CKD: No Creatinine (mg/dL) Date Value 03/06/2024 0.88 - GFR 95 03/06/2024 -Reviewed with the patient the importance of hydration pre/postoperatively. -Aim for 64 ounces of fluid a day DIABETES: Yes -A1C 10.1 11/23/2023 -On Ozempic, insulin, metformin, managed by PCP -BG this past week ranged 99-300 -Repeat A1C -ADA diet information given -Nutrition consult, does not want at this time -Endocrine consult, does not want at this time MOBILITY: -Frailty score: 2= walking program -Pedometer: increase your steps by 100 every couple of days, goal is 5-10% increase in steps per day over baseline COGNITION: -4AT score: 0= Delirium or severe cognitive impairment unlikely -Delirium assessments to be performed per protocol during hospital course -Surrogate decision maker, spouse, Adia -Advanced Directives packet, not interested at this time PSYCHOSOCIAL: -Educational material given to patient for stress reduction/management -Denies any major symptoms of depression or anxiety -On Zoloft 50 mg, Trazodone 100 mg -h/o ETOH abuse: can go weeks without drinking, no h/o DTs or withdrawal, encouraged slowly decreasing amount prior to surgery under medical supervision CARDIAC: -Decreased EF 35% per ECHO 2020, no repeat study -Was previously on Coreg, couldn't tolerate due to bradycardia -Elevated BP reading in office today, 162/108, reports intense ABD pain, does not check BP at home, does occasional have blurry vision, mostly looking at phone screen -Reports METs >5 -Does have CP (originating from mid back), and SOB when he is having ABD pain, not associated with activity -Does not follow with Cardio -Recommended Medical Clearance -Continue statin during preoperative period as prescribed VENOUS THROMBOEMBOLISM RISK ASSESSMENT: -Surgeon to determine prophylaxis regimen -Managing provider contacted for instructions for OAC -On ASA 81 mg for h/o TIA, most recently in 2002 PULMONOLOGY: -Stop BANG: low risk for SENA -Dyspnea Scale: 0=able to climb a flight of stairs without SOB or CP -Start IS, instructions reviewed -Recommend using IS 10 times an hour while awake during hospital course -Tobacco cessation encouraged, counseling was given about the harmful effects of tobacco use -Current smoker, 20 pack years, down to 5-8 cigarettes a day, encouraged complete cessation, does not want patches/gum ordered at this time, does not want referral to Smoking Clinic at this point -The function of the surgery optimization clinic is to optimize modifiable risk factors prior to surgery. This clinic does not provide medical clearance for surgery. As always, the decision whether or not to proceed with surgery should be based on an evaluation of the risks versus benefits of the procedure, and should be made between the patient in the surgeon. -A letter and copy of this encounter was sent to referring surgeon and the patient's primary care provider. -Surgery optimization clinic RN will follow up with patient on areas addressed for optimization. I spent a total of 100 minutes on the date of the service which included preparing to see the patient, [id number] patient care, completing clinical documentation, obtaining and/or reviewing separately obtained history, performing a medically appropriate examination, counseling and educating the patient/family/caregiver, ordering medications, tests, or procedures, communicating with other HCPs (not separately reported), and independently interpreting results (not separately reported). ELECTRONICALLY SIGNED AND DATED BY: Tracey Brown APRN, CNP [facility] Surgery [facility]imization [facility] documented in this encounter [facility] 03-07-2024 History of Present illness Narrative [facility] SURGERY PROGRESS NOTE Subjective INTERVAL HISTORY OF PRESENT ILLNESS: Continuing to struggle with abdominal pain and nausea Worse with eating Intermittently not eating well, having nausea, no vomiting Weight is stable Overall fatigue and feeling miserable He has seen urology and was diagnosed with prostate cancer, but undergoing surveillance before deciding on a treatment plan, if any. No plans for surgery from this perspective. Objective PHYSICAL EXAM: BP 136/80 Pulse 95 Ht 6' 1" (1.85m) SpO2 96% Physical Exam Performed GENERAL: Alert, no distress, cooperative LUNGS: Negative ABDOMEN: Soft, nontender The remainder of the physical exam is noncontributory. DATA: Diagnostic tests reviewed for today's visit: Most recent labs and imaging results. EUS/FNA 02/15/24: --2.2 cm hypoechoic, heterogeneous lesions was identified in the pancreatic head. Fine needle biopsy performed. Preliminary results nondiagnostic. --Path: atypical cells present, not further diagnostic Assessment/Plan 63 year old male with history of severe acute pancreatitis managed surgically in [place] (in the setting of EtOH use) in 2018 and more recent recurrent acute pancreatitis managed at (details unclear) who was admitted at [facility] with liver abscess and cholangitis managed with an IR drain and ERCP with stent placement. MRI concerning for pancreatic mass/malignancy. EUS/FNA showed atypical cells. --Plan for Whipple - anticipate no need for PJ --[facility] Conference --SOC Jumana Calloway MD [facility] Surgeon documented in this encounter [facility] 03-06-2024 Instructions Tracey Brown APRN.PAINTER AIRBRUSH - 03/06/2024 8:48 AM EDT Incentive Spirometer: -Start with breathing exercise today, goal 30-40 breaths a day *Incentive spirometer is used to help with lung expansion post operatively. It can be of benefit preoperatively to for those who smoke or have lung disease. Use the spirometer as instructed during your hospital visit. Take 10 deep breaths, hold for one second and then slowly exhale. You can take cleansing breaths in between as needed to avoid feeling dizzy or lightheaded. Use the spirometer hourly if possible. You will continue with this postoperatively. Pedometer: -Pedometer to monitor your steps starting today -For the first 3 days monitor your average daily steps to get your baseline number -Then increase your steps by 200-300 every couple of days as able -Goal is to increase mobility as much as possible prior to surgery * Research has shown that increased strength, mobility and function preoperatively will help you to recover with less complication. Your effort preoperatively will yield better results postoperatively Stress Relief: -Deep breathing exercises -Sleep: 6-8 hours of sleep each night -Meditate -Laughing -Walking -Positive self-talk -Finding a support system -Exercise, walking, being active Nutrition: -Make sure you are getting enough protein a day, with a goal of at least 1 high-protein food with each of your three meals a day -High protein sources include: chicken breast, lean beef, salmon, tofu, peanut butter, eggs, wolof yogurt, cottage cheese, black beans, lentils -Make sure you are including high calcium foods, at least 3 servings a day: low-fat dairy, dark-leafy greens, sardines, or calcium-fortified cereals -Make sure you are getting vitamins and minerals by including at least four servings of fruits/vegetables a day - Drink 2 shakes daily for 5 days leading up to the day of surgery. *It has been shown through research that boosting the nutritional intake preoperatively with calories, vitamins and minerals, and hydration, promotes early recovery and improved healing postoperatively. You have been provided a case of supplement to take. Advanced Directives: Advanced directives are your preferences and personal requests in the event you are unable to make decisions for yourself following surgery. It is important for you to discuss your wishes with your family. It is requested that a single family member be designated as your power of contracts attorney in the event you cannot speak for yourself. This person should know what you would prefer as your medical choices if you were not compromised. This person, family or friend, should know what you prefer for your medical care and decisions if you are unable to make those decisions for yourself. Notify your surgeon s office to update your records with the designated Durable Power of Operator Prefinish. -A great web site for information: www.[email or web address].org Sensory Aids: -If you have any sensory aids, such as hearing aids, or glasses, please bring these with you day of surgery -Encouraged to bring sleep hygiene items such as ear plugs and eye mask for more restful sleep during hospital stay - Information sheet on Delirium given to patient Sleep Apnea: If you have a CPAP machine, please bring that with you day of surgery. Smoking Cessation: -Quit smoking or vaping -Goal is to be abstinent from smoking prior to surgery, the sooner you quit, the less risk of post-op complications -Handout given on importance of smoking cessation -Resourceful web site: www.[employer].com - [facility] smoke cessation resources: 1(804)-QUIT-NOW documented in this encounter [facility] 03-06-2024 Note HNO ID: [id number] Author: ESTEPHANIA MCGRATH CT Service: ? Author Type: Clinical Reimbursement Director Type: Progress Notes Filed: 03/06/2024 03:57 Note Text: Radiology Service Progress Note DATE OF SERVICE: March 06, 2024 TIME: 3:57 AM PATIENT IDENTITY VERIFICATION COMPLETED USING TWO (2) STANDARD IDENTIFIERS: Name and Date of confirmed by patient verbally and Name and Date of confirmed by identification band. FALL SCREENING: Has the patient had 2 falls in the last year or 1 fall with injury or currently using an Ambulatory Assistive Device (Walker, Cane, Wheelchair, Crutches, etc.)? Emergency Room Patient: Screened in ED PATIENT GENDER DATA: Male PATIENT RELEVANT IMPLANT DATA REVIEWED: Not Applicable PATIENT PRESENTS WITH AN IMPLANTABLE OR ATTACHED FINANCIAL COACH: No ALLERGIES: Reviewed and unchanged CONTRAST ALLERGY: NO. EXAM: CT -CONTRAST INDUCED NEPHROPATHY RISK FACTORS: Not applicable CREATININE: Creatinine Date Value Ref Range Status 03/06/2024 0.88 0.73 - 1.22 mg/dL Final 01/17/2024 0.76 0.73 - 1.22 mg/dL Final 01/03/2024 0.76 0.73 - 1.22 mg/dL Final Estimated Glomerular Filtration Rate Date Value Ref Range Status 03/06/2024 95 >=60 mL/min/1.73m? Final Comment: Estimated Glomerular Filtration Rate (eGFR) is calculated using the 2020 CKD-EPI creatinine equation. This equation utilizes serum creatinine, sex, and age as parameters. The creatinine assay has traceable calibration to isotope dilution-mass spectrometry. Refer to KDIGO guidelines for clinical interpretation. In patients with unstable renal function, e.g. those with acute kidney injury, the eGFR may not accurately reflect actual GFR. P.O.C.T. RESULTS: POC done: Yes, See Lab Tab March 06, 2024 TREATMENT: N/A and No Hydration needed. PERIPHERAL IV DATA: Ambulatory: A peripheral IV was started in the Left with a Angio cath: 20 gauge. RADIOLOGY DEPARTMENT: CT; Exam(s) Completed: Abdomen/Pelvis SIGNATURE: ZEKE Corbin, CT PATIENT NAME: Kyle Mcdaniel DATE: March 06, 2024 TIME: 3:[address] [facility] 02-23-2024 Note HNO ID: [id number] Author: JEWEL FUENTES MD Service: ? Author Type: Physician Type: Progress Notes Filed: 02/23/2024 09:58 Note Text: [facility] ESTABLISHED PATIENT OFFICE VISIT HISTORY OF PRESENT ILLNESS Kyle Mcdaniel is a 63 year old male who is here for follow up of elevated PSA Has had a prostate needle biopsy performed couple weeks ago and pathology report came back positive for adenocarcinoma of the prostate Meridian score 6 affecting the mid right lobe denies any fever or chills secondary to biopsy. Patient was previously referred by [facility] for prostate needle biopsy History of incomplete bladder emptying Review of Systems The remainder of the ROS was reviewed and is negative. LAB Creatinine Date Value Ref Range Status 01/17/2024 0.76 0.73 - 1.22 mg/dL Final GLUCOSE UA (POCT) (mg/dL) Date Value 02/09/2024 Negative BILIRUBIN UA (POCT) (no units) Date Value 02/09/2024 Small (A) KETONE UA (POCT) (mg/dL) Date Value 02/09/2024 15 (A) SPECIFIC GRAVITY UA (POCT) (no units) Date Value 02/09/2024 >=1.030 HEMOGLOBIN/BLOOD UA (POCT) (no units) Date Value 02/09/2024 Negative PH UA (POCT) (no units) Date Value 02/09/2024 5.5 PROTEIN UA (POCT) (mg/dL) Date Value 02/09/2024 Negative UROBILINOGEN UA (POCT) (E.U./dL) Date Value 02/09/2024 1.0 NITRITE UA (POCT) (no units) Date Value 02/09/2024 Negative LEUKOCYTES UA (POCT) (no units) Date Value 02/09/2024 Negative COLOR UA (POCT) (no units) Date Value 02/09/2024 Yellow CLARITY UA (POCT) (no units) Date Value 02/09/2024 Clear ] MEDICATIONS semaglutide (OZEMPIC) 0.25 mg or 0.5 mg (2 mg/3 mL) pen Inject 0.5 mg subcutaneously one time a week. insulin lispro (HUMALOG KWIKPEN INSULIN) 100 unit/mL Inject 5 Units subcutaneously three times a day with meals. aspirin, enteric coated (ASPIRIN, ENTERIC COATED) 81 mg EC tablet Take 81 mg by mouth once daily. traZODone (DESYREL) 100 mg tablet Take 100 mg by mouth daily at bedtime. kwvjdg-fabnsiqn-irhdepo (CREON 12) 12,000-38,000 -60,000 unit delayed release capsule Take 1 capsule by mouth with meals and at bedtime. ondansetron orally disintegrating (ZOFRAN ODT) 4 mg disintegrating tablet Take 1 tablet by mouth every 8 hours as needed. tamsulosin (FLOMAX) 0.4 mg Take 0.4 mg by mouth once daily. rosuvastatin (CRESTOR) 40 mg tablet Take 40 mg by mouth once daily. metFORMIN ER (GLUMETZA) 1,000 mg 24 hr tablet Take 1,000 mg by mouth two times a day. sertraline (ZOLOFT) 50 mg tablet Take 50 mg by mouth once daily. montelukast (SINGULAIR) 10 mg tablet Take 10 mg by mouth daily at bedtime. LORATADINE ORAL Take 10 mg by mouth once daily. LANTUS SOLOSTAR U-100 INSULIN 100 unit/mL (3 mL) Inject 25 Units subcutaneously two times a day. levoFLOXacin (LEVAQUIN) 750 mg tablet One po daily for 3 days,first dose 2 hours prior procedure (Patient not taking: Reported on 02/23/2024) thiamine (VITAMIN B1) 100 mg tablet Take 100 mg by mouth once daily. (Patient not taking: Reported on 01/16/2024) 0 HISTORIES PAST MEDICAL HISTORY No date: Alcohol abuse No date: Diabetes mellitus (HCC) No date: Hx of chronic pancreatitis No date: Hyperlipemia No date: TIA (transient ischemic attack) PAST SURGICAL HISTORY No date: ABDOMINAL SURGERY HX History reviewed. No pertinent family history. SOCIAL HISTORY Social History Tobacco Use Smoking status: Every Day Current packs/day: 1.00 Average packs/day: 1 pack/day for 20.0 years (20.0 ttl pk-yrs) Types: Cigarettes Smokeless tobacco: Former Types: Snuff Tobacco comments: As per pt "I smoke 12-15 smokes a day, but when I drink I know its way more." Vaping Use Vaping status: Never Used Substance Use Topics Alcohol use: Yes Comment: 1 pint liquor per week Drug use: Never There were no vitals taken for this visit. Physical Exam Constitutional: Appearance: Normal appearance. HENT: Head: Normocephalic. Nose: Nose normal. Pulmonary: Effort: Pulmonary effort is normal. Neurological: Mental Status: He is alert. Psychiatric: Mood and Affect: Mood normal. ASSESSMENT AND PLAN: No problem-specific Assessment AND Plan notes found for this encounter. ASSESSMENT/PLAN: 1. Prostate nodule - ICD9: 600.10, ICD10: N40.2 (primary diagnosis) 2. Prostate cancer (HCC) - ICD9: 185, ICD10: C61 Meridian score 6 affecting the mid right lobe For active surveillance Only 1 core was positive with a Meridian score 6, 7% of the core was positive with cancer Postvoid residual urine is only 1 mL Jewel Fuentes MD This note was partially created using voice recognition software and is inherently subject to errors including those of syntax and sound-alike substitutions which may escape proofreading. In such instances, original meaning may be extrapolated by contextual derivation. [facility] 02-23-2024 History of Present illness Narrative Images from the original note were not included. [facility] ESTABLISHED PATIENT OFFICE VISIT HISTORY OF PRESENT ILLNESS Kyle Mcdaniel is a 63 year old male who is here for follow up of elevated PSA Has had a prostate needle biopsy performed couple weeks ago and pathology report came back positive for adenocarcinoma of the prostate Meridian score 6 affecting the mid right lobe denies any fever or chills secondary to biopsy. Patient was previously referred by [facility] for prostate needle biopsy History of incomplete bladder emptying Review of Systems The remainder of the ROS was reviewed and is negative. LAB Creatinine Date Value Ref Range Status 01/17/2024 0.76 0.73 - 1.22 mg/dL Final GLUCOSE UA (POCT) (mg/dL) Date Value 02/09/2024 Negative BILIRUBIN UA (POCT) (no units) Date Value 02/09/2024 Small (A) KETONE UA (POCT) (mg/dL) Date Value 02/09/2024 15 (A) SPECIFIC GRAVITY UA (POCT) (no units) Date Value 02/09/2024 >=1.030 HEMOGLOBIN/BLOOD UA (POCT) (no units) Date Value 02/09/2024 Negative PH UA (POCT) (no units) Date Value 02/09/2024 5.5 PROTEIN UA (POCT) (mg/dL) Date Value 02/09/2024 Negative UROBILINOGEN UA (POCT) (E.U./dL) Date Value 02/09/2024 1.0 NITRITE UA (POCT) (no units) Date Value 02/09/2024 Negative LEUKOCYTES UA (POCT) (no units) Date Value 02/09/2024 Negative COLOR UA (POCT) (no units) Date Value 02/09/2024 Yellow CLARITY UA (POCT) (no units) Date Value 02/09/2024 Clear ] MEDICATIONS semaglutide (OZEMPIC) 0.25 mg or 0.5 mg (2 mg/3 mL) pen Inject 0.5 mg subcutaneously one time a week. insulin lispro (HUMALOG KWIKPEN INSULIN) 100 unit/mL Inject 5 Units subcutaneously three times a day with meals. aspirin, enteric coated (ASPIRIN, ENTERIC COATED) 81 mg EC tablet Take 81 mg by mouth once daily. traZODone (DESYREL) 100 mg tablet Take 100 mg by mouth daily at bedtime. ogulqo-nbpzrsuz-yidpvdz (CREON 12) 12,000-38,000 -60,000 unit delayed release capsule Take 1 capsule by mouth with meals and at bedtime. ondansetron orally disintegrating (ZOFRAN ODT) 4 mg disintegrating tablet Take 1 tablet by mouth every 8 hours as needed. tamsulosin (FLOMAX) 0.4 mg Take 0.4 mg by mouth once daily. rosuvastatin (CRESTOR) 40 mg tablet Take 40 mg by mouth once daily. metFORMIN ER (GLUMETZA) 1,000 mg 24 hr tablet Take 1,000 mg by mouth two times a day. sertraline (ZOLOFT) 50 mg tablet Take 50 mg by mouth once daily. montelukast (SINGULAIR) 10 mg tablet Take 10 mg by mouth daily at bedtime. LORATADINE ORAL Take 10 mg by mouth once daily. LANTUS SOLOSTAR U-100 INSULIN 100 unit/mL (3 mL) Inject 25 Units subcutaneously two times a day. levoFLOXacin (LEVAQUIN) 750 mg tablet One po daily for 3 days,first dose 2 hours prior procedure (Patient not taking: Reported on 02/23/2024) thiamine (VITAMIN B1) 100 mg tablet Take 100 mg by mouth once daily. (Patient not taking: Reported on 01/16/2024) 0 HISTORIES PAST MEDICAL HISTORY No date: Alcohol abuse No date: Diabetes mellitus (HCC) No date: Hx of chronic pancreatitis No date: Hyperlipemia No date: TIA (transient ischemic attack) PAST SURGICAL HISTORY No date: ABDOMINAL SURGERY HX History reviewed. No pertinent family history. SOCIAL HISTORY Social History Tobacco Use Smoking status: Every Day Current packs/day: 1.00 Average packs/day: 1 pack/day for 20.0 years (20.0 ttl pk-yrs) Types: Cigarettes Smokeless tobacco: Former Types: Snuff Tobacco comments: As per pt "I smoke 12-15 smokes a day, but when I drink I know its way more." Vaping Use Vaping status: Never Used Substance Use Topics Alcohol use: Yes Comment: 1 pint liquor per week Drug use: Never There were no vitals taken for this visit. Physical Exam Constitutional: Appearance: Normal appearance. HENT: Head: Normocephalic. Nose: Nose normal. Pulmonary: Effort: Pulmonary effort is normal. Neurological: Mental Status: He is alert. Psychiatric: Mood and Affect: Mood normal. ASSESSMENT & PLAN: No problem-specific Assessment & Plan notes found for this encounter. ASSESSMENT/PLAN: 1. Prostate nodule - ICD9: 600.10, ICD10: N40.2 (primary diagnosis) 2. Prostate cancer (HCC) - ICD9: 185, ICD10: C61 Enoch score 6 affecting the mid right lobe For active surveillance Only 1 core was positive with a Meridian score 6, 7% of the core was positive with cancer Postvoid residual urine is only 1 mL Jewel Fuentes MD This note was partially created using voice recognition software and is inherently subject to errors including those of syntax and "sound-alike" substitutions which may escape proofreading. In such instances, original meaning may be extrapolated by contextual derivation. documented in this encounter [facility] 02-09-2024 Note HNO ID: [id number] Author: JEWEL FUENTES MD Service: ? Author Type: Physician Type: Procedures Filed: 02/09/2024 10:45 Note Text: Ultrasound-guided prostate needle biopsy, prostate nerve block Kyle Mcdaniel is a 63 year old male who presents with elevated PSA for ultrasound-guided prostate needle biopsy, prostate nerve block. PRE-OP/PRE-PROCEDURE DIAGNOSIS: Elevated PSA POST-OP/POST-PROCEDURE DIAGNOSIS: Same SURGERY/PROCEDURE(S): Ultrasound-guided prostate needle biopsy and prostate nerve block Pt ID verified with patient: Yes Procedure verified with patient: Yes Procedure confirmed with physician and product support representative: Yes UNIVERSAL PROTOCOL / SAFETY CHECKLIST Procedure to be Performed: Ultrasound-guided prostate needle biopsy and prostate nerve block Sign In: A Moment of CARE was completed. Personnel directly involved with the procedure wore the appropriate PPE (Personal Protective Equipment). Patient/Surrogate Stated/Verified: PATIENT VERIFIED(optional for EMERGENT procedures): Patient name, Date of , Relevant allergies, and The intended procedure Time Out Communication: Intended patient and procedure match the source documents. Consent documented and matches the intended procedure. Sign Out: SIGN OUT (optional for EMERGENT procedures): All specimen containers correctly labeled. Jewel Fuentes MD A urinalysis was performed revealing no evidence of infection. The benefits, risks, alternatives of the cystoscopy procedure and personnel were discussed with the patient. The verbal consent was obtained and the patient agrees to proceed. Procedure: Patient was placed in the right side up position and ultrasound probe was placed in the rectum, ultrasound probe was smeared with Betadine to cut down the risk of infection Prostate volume was evaluated to be at 35 mL Length 36 mm height is 40 mm and width is 45 mm No evidence of hypoechoic lesions throughout the prostate and minimal calcifications were encountered Prostate nerve block was done by injecting 5 cc on each side with 1% Xylocaine at space between the base of the prostate and seminal vesicles Biopsies were obtained from the right lobe from right base right midportion and right apex lateral and medial Similar procedure was done on the left side All specimen was labeled properly and ultrasound probe was removed and there was minimal bleeding encountered Patient tolerated procedure well Patient was given standard post-procedure instructions, and was directed to complete the course of oral antibiotics and increase oral fluid intake as directed. Jewel Fuentes MD Electronically Signed: Jewel Fuentes MD February 09, 2024 9:59 AM This note was partially created using voice recognition software and is inherently subject to errors including those of syntax and sound-alike substitutions which may escape proofreading. In such instances, original meaning may be extrapolated by contextual derivation. [facility] 02-09-2024 Procedure note Ultrasound-guided prostate needle biopsy, prostate nerve block Kyle Mcdaniel is a 63 year old male who presents with elevated PSA for ultrasound-guided prostate needle biopsy, prostate nerve block. PRE-OP/PRE-PROCEDURE DIAGNOSIS: Elevated PSA POST-OP/POST-PROCEDURE DIAGNOSIS: Same SURGERY/PROCEDURE(S): Ultrasound-guided prostate needle biopsy and prostate nerve block Pt ID verified with patient: Yes Procedure verified with patient: Yes Procedure confirmed with physician and product support representative: Yes UNIVERSAL PROTOCOL / SAFETY CHECKLIST Procedure to be Performed: Ultrasound-guided prostate needle biopsy and prostate nerve block Sign In: A Moment of CARE was completed. Personnel directly involved with the procedure wore the appropriate PPE (Personal Protective Equipment). Patient/Surrogate Stated/Verified: PATIENT VERIFIED(optional for EMERGENT procedures): Patient name, Date of , Relevant allergies, and The intended procedure Time Out Communication: Intended patient and procedure match the source documents. Consent documented and matches the intended procedure. Sign Out: SIGN OUT (optional for EMERGENT procedures): All specimen containers correctly labeled. Jewel Fuentes MD A urinalysis was performed revealing no evidence of infection. The benefits, risks, alternatives of the cystoscopy procedure and personnel were discussed with the patient. The verbal consent was obtained and the patient agrees to proceed. Procedure: Patient was placed in the right side up position and ultrasound probe was placed in the rectum, ultrasound probe was smeared with Betadine to cut down the risk of infection Prostate volume was evaluated to be at 35 mL Length 36 mm height is 40 mm and width is 45 mm No evidence of hypoechoic lesions throughout the prostate and minimal calcifications were encountered Prostate nerve block was done by injecting 5 cc on each side with 1% Xylocaine at space between the base of the prostate and seminal vesicles Biopsies were obtained from the right lobe from right base right midportion and right apex lateral and medial Similar procedure was done on the left side All specimen was labeled properly and ultrasound probe was removed and there was minimal bleeding encountered Patient tolerated procedure well Patient was given standard post-procedure instructions, and was directed to complete the course of oral antibiotics and increase oral fluid intake as directed. Jewel Fuentes MD Electronically Signed: Jewel Fuentes MD February 09, 2024 9:59 AM This note was partially created using voice recognition software and is inherently subject to errors including those of syntax and "sound-alike" substitutions which may escape proofreading. In such instances, original meaning may be extrapolated by contextual derivation. [facility] 02-09-2024 Procedure note Ultrasound-guided prostate needle biopsy, prostate nerve block Kyle Mcdaniel is a 63 year old male who presents with elevated PSA for ultrasound-guided prostate needle biopsy, prostate nerve block. PRE-OP/PRE-PROCEDURE DIAGNOSIS: Elevated PSA POST-OP/POST-PROCEDURE DIAGNOSIS: Same SURGERY/PROCEDURE(S): Ultrasound-guided prostate needle biopsy and prostate nerve block Pt ID verified with patient: Yes Procedure verified with patient: Yes Procedure confirmed with physician and product support representative: Yes UNIVERSAL PROTOCOL / SAFETY CHECKLIST Procedure to be Performed: Ultrasound-guided prostate needle biopsy and prostate nerve block Sign In: A Moment of CARE was completed. Personnel directly involved with the procedure wore the appropriate PPE (Personal Protective Equipment). Patient/Surrogate Stated/Verified: PATIENT VERIFIED(optional for EMERGENT procedures): Patient name, Date of , Relevant allergies, and The intended procedure Time Out Communication: Intended patient and procedure match the source documents. Consent documented and matches the intended procedure. Sign Out: SIGN OUT (optional for EMERGENT procedures): All specimen containers correctly labeled. Jewel Fuentes MD A urinalysis was performed revealing no evidence of infection. The benefits, risks, alternatives of the cystoscopy procedure and personnel were discussed with the patient. The verbal consent was obtained and the patient agrees to proceed. Procedure: Patient was placed in the right side up position and ultrasound probe was placed in the rectum, ultrasound probe was smeared with Betadine to cut down the risk of infection Prostate volume was evaluated to be at 35 mL Length 36 mm height is 40 mm and width is 45 mm No evidence of hypoechoic lesions throughout the prostate and minimal calcifications were encountered Prostate nerve block was done by injecting 5 cc on each side with 1% Xylocaine at space between the base of the prostate and seminal vesicles Biopsies were obtained from the right lobe from right base right midportion and right apex lateral and medial Similar procedure was done on the left side All specimen was labeled properly and ultrasound probe was removed and there was minimal bleeding encountered Patient tolerated procedure well Patient was given standard post-procedure instructions, and was directed to complete the course of oral antibiotics and increase oral fluid intake as directed. Jewel Fuentes MD Electronically Signed: Jewel Fuentes MD February 09, 2024 9:59 AM This note was partially created using voice recognition software and is inherently subject to errors including those of syntax and "sound-alike" substitutions which may escape proofreading. In such instances, original meaning may be extrapolated by contextual derivation. documented in this encounter [facility] 02-09-2024 Nurse Note Workers Compensation Analyst offered:Patient accepts, visit chaperoned by [place] Sandy [facility] 02-09-2024 Nurse Note Workers Compensation Analyst offered:Patient accepts, visit chaperoned by [place] Sandy documented in this encounter [facility] 02-05-2024 Telephone encounter Note Surgery Checklist Type: EUS Admission Type: outpatient Anesthesia: MAC Date: 02/15/24 Arrival Time: 9:00 am Surgery Time: 10:00 am Location: [facility] Patient sent prep instructions via email. Emiliano Ibarra [facility] 02-05-2024 Miscellaneous Notes Surgery Checklist Type: EUS Admission Type: outpatient Anesthesia: MAC Date: 02/15/24 Arrival Time: 9:00 am Surgery Time: 10:00 am Location: [facility] Patient sent prep instructions via email. Emiliano Ibarra documented in this encounter [facility] 01-16-2024 History and physical note [facility] SURGERY H&P Subjective CHIEF COMPLAINT: Pancreatic mass, chronic pancreatitis HISTORY OF PRESENT ILLNESS: Mr. Mcdaniel is a 63 year old male who presents for hospital follow-up for pancreatitis. He states he has a history of acute severe pancreatitis managed in [place]. He notes a prolonged hospital stay, ICU stay, multiple surgeries with an open abdomen for pancreatitis. At the time he was a heavy drinker. He recovered from this and had no issues for a few years, but then had recurrent pancreatitis, which was managed at (?endoscopic intervention)? Since then, he has had intermittent flare ups of abdominal pain and nausea, which he is usually able to manage at home. He takes his Creon (though was educated on the need to take it with meals). He was recently () admitted with a liver abscess that was managed with a drain. The drain is currently out. During that hospital stay, he had an ERCP that was notable for a lower biliary stricture (cytology negative), sphincterotomy was performed, biliary tree was swept with mucus out, and 1 covered metal stent was placed. MRCP showed a massline structure in the head of the pancreas concerning for neoplasm. CA19-9 normal. PAST MEDICAL HISTORY Diagnosis Date Alcohol abuse Diabetes mellitus (HCC) Hx of chronic pancreatitis Hyperlipemia TIA (transient ischemic attack) PAST SURGICAL HISTORY Procedure Laterality Date ABDOMINAL SURGERY HX Current Outpatient Medications on File Prior to Visit Medication Sig semaglutide (OZEMPIC) 0.25 mg or 0.5 mg (2 mg/3 mL) pen Inject 0.5 mg subcutaneously one time a week. levoFLOXacin (LEVAQUIN) 750 mg tablet One po daily for 3 days,first dose 2 hours prior procedure senna-docusate (SENNA-S) 8.6-50 mg per tablet Take 1 tablet by mouth two times a day. polyethylene glycol 3350 17 gram packet Take 1 Packet by mouth once daily. Dissolve dose in 4 - 8 ounces of liquid and take as directed. insulin lispro (HUMALOG KWIKPEN INSULIN) 100 unit/mL Inject 5 Units subcutaneously three times a day with meals. aspirin, enteric coated (ASPIRIN, ENTERIC COATED) 81 mg EC tablet Take 81 mg by mouth once daily. traZODone (DESYREL) 100 mg tablet Take 100 mg by mouth daily at bedtime. duesag-myqcnfnt-hrncjzu (CREON 12) 12,000-38,000 -60,000 unit delayed release capsule Take 1 capsule by mouth with meals and at bedtime. ondansetron orally disintegrating (ZOFRAN ODT) 4 mg disintegrating tablet Take 1 tablet by mouth every 8 hours as needed. tamsulosin (FLOMAX) 0.4 mg Take 0.4 mg by mouth once daily. rosuvastatin (CRESTOR) 40 mg tablet Take 40 mg by mouth once daily. metFORMIN ER (GLUMETZA) 1,000 mg 24 hr tablet Take 1,000 mg by mouth two times a day. sertraline (ZOLOFT) 50 mg tablet Take 50 mg by mouth once daily. montelukast (SINGULAIR) 10 mg tablet Take 10 mg by mouth daily at bedtime. LORATADINE ORAL Take 10 mg by mouth once daily. LANTUS SOLOSTAR U-100 INSULIN 100 unit/mL (3 mL) Inject 25 Units subcutaneously two times a day. thiamine (VITAMIN B1) 100 mg tablet Take 100 mg by mouth once daily. (Patient not taking: Reported on 01/16/2024) No current facility-administered medications on file prior to visit. ALLERGIES Allergen Reactions Azithromycin Hives Erythromycin Hives Tylenol [Acetaminop* Hives History reviewed. No pertinent family history. Social History Tobacco Use Smoking status: Every Day Packs/day: 1.00 Years: 20.00 Additional pack years: 0.00 Total pack years: 20.00 Types: Cigarettes Smokeless tobacco: Never Tobacco comments: As per pt "I smoke 12-15 smokes a day, but when I drink I know its way more." Vaping Use Vaping Use: Never used Substance Use Topics Alcohol use: Yes Comment: 1 pint Drug use: Never Objective PHYSICAL EXAM: BP 126/80 Pulse 90 Ht 6' 1" (1.85m) Wt 216 lb (98.0kg) SpO2 97% BMI 28.50 kg/(m^2). Physical Exam Performed GENERAL: Alert, no distress, cooperative LUNGS: Negative ABDOMEN: Soft, nontender The remainder of the physical exam is noncontributory. DATA: Diagnostic tests reviewed for today's visit: Most recent labs and imaging results. Assessment/Plan 63 year old male with history of severe acute pancreatitis managed surgically in [place] (in the setting of EtOH use) and more recent recurrent acute pancreatitis managed at (details unclear) who was admitted at [facility] with liver abscess and cholangitis managed with an IR drain and ERCP with stent placement. MRI concerning for pancreatic mass/malignancy. --Repeat EUS/FNA of pancreatic mass --Follow-up with urology regarding prostate --Will obtain records from [place] and to sort out prior pancreatitis and operative history --Follow-up with me after repeat EUS/FNA Jumana Calloway MD [facility] Surgeon [facility] 01-16-2024 History and physical note [facility] SURGERY H&P Subjective CHIEF COMPLAINT: Pancreatic mass, chronic pancreatitis HISTORY OF PRESENT ILLNESS: Mr. Mcdaniel is a 63 year old male who presents for hospital follow-up for pancreatitis. He states he has a history of acute severe pancreatitis managed in [place]. He notes a prolonged hospital stay, ICU stay, multiple surgeries with an open abdomen for pancreatitis. At the time he was a heavy drinker. He recovered from this and had no issues for a few years, but then had recurrent pancreatitis, which was managed at (?endoscopic intervention)? Since then, he has had intermittent flare ups of abdominal pain and nausea, which he is usually able to manage at home. He takes his Creon (though was educated on the need to take it with meals). He was recently () admitted with a liver abscess that was managed with a drain. The drain is currently out. During that hospital stay, he had an ERCP that was notable for a lower biliary stricture (cytology negative), sphincterotomy was performed, biliary tree was swept with mucus out, and 1 covered metal stent was placed. MRCP showed a massline structure in the head of the pancreas concerning for neoplasm. CA19-9 normal. PAST MEDICAL HISTORY Diagnosis Date Alcohol abuse Diabetes mellitus (HCC) Hx of chronic pancreatitis Hyperlipemia TIA (transient ischemic attack) PAST SURGICAL HISTORY Procedure Laterality Date ABDOMINAL SURGERY HX Current Outpatient Medications on File Prior to Visit Medication Sig semaglutide (OZEMPIC) 0.25 mg or 0.5 mg (2 mg/3 mL) pen Inject 0.5 mg subcutaneously one time a week. levoFLOXacin (LEVAQUIN) 750 mg tablet One po daily for 3 days,first dose 2 hours prior procedure senna-docusate (SENNA-S) 8.6-50 mg per tablet Take 1 tablet by mouth two times a day. polyethylene glycol 3350 17 gram packet Take 1 Packet by mouth once daily. Dissolve dose in 4 - 8 ounces of liquid and take as directed. insulin lispro (HUMALOG KWIKPEN INSULIN) 100 unit/mL Inject 5 Units subcutaneously three times a day with meals. aspirin, enteric coated (ASPIRIN, ENTERIC COATED) 81 mg EC tablet Take 81 mg by mouth once daily. traZODone (DESYREL) 100 mg tablet Take 100 mg by mouth daily at bedtime. ouewkq-yhnjhsds-ytcremf (CREON 12) 12,000-38,000 -60,000 unit delayed release capsule Take 1 capsule by mouth with meals and at bedtime. ondansetron orally disintegrating (ZOFRAN ODT) 4 mg disintegrating tablet Take 1 tablet by mouth every 8 hours as needed. tamsulosin (FLOMAX) 0.4 mg Take 0.4 mg by mouth once daily. rosuvastatin (CRESTOR) 40 mg tablet Take 40 mg by mouth once daily. metFORMIN ER (GLUMETZA) 1,000 mg 24 hr tablet Take 1,000 mg by mouth two times a day. sertraline (ZOLOFT) 50 mg tablet Take 50 mg by mouth once daily. montelukast (SINGULAIR) 10 mg tablet Take 10 mg by mouth daily at bedtime. LORATADINE ORAL Take 10 mg by mouth once daily. LANTUS SOLOSTAR U-100 INSULIN 100 unit/mL (3 mL) Inject 25 Units subcutaneously two times a day. thiamine (VITAMIN B1) 100 mg tablet Take 100 mg by mouth once daily. (Patient not taking: Reported on 01/16/2024) No current facility-administered medications on file prior to visit. ALLERGIES Allergen Reactions Azithromycin Hives Erythromycin Hives Tylenol [Acetaminop* Hives History reviewed. No pertinent family history. Social History Tobacco Use Smoking status: Every Day Packs/day: 1.00 Years: 20.00 Additional pack years: 0.00 Total pack years: 20.00 Types: Cigarettes Smokeless tobacco: Never Tobacco comments: As per pt "I smoke 12-15 smokes a day, but when I drink I know its way more." Vaping Use Vaping Use: Never used Substance Use Topics Alcohol use: Yes Comment: 1 pint Drug use: Never Objective PHYSICAL EXAM: BP 126/80 Pulse 90 Ht 6' 1" (1.85m) Wt 216 lb (98.0kg) SpO2 97% BMI 28.50 kg/(m^2). Physical Exam Performed GENERAL: Alert, no distress, cooperative LUNGS: Negative ABDOMEN: Soft, nontender The remainder of the physical exam is noncontributory. DATA: Diagnostic tests reviewed for today's visit: Most recent labs and imaging results. Assessment/Plan 63 year old male with history of severe acute pancreatitis managed surgically in [place] (in the setting of EtOH use) and more recent recurrent acute pancreatitis managed at (details unclear) who was admitted at [facility] with liver abscess and cholangitis managed with an IR drain and ERCP with stent placement. MRI concerning for pancreatic mass/malignancy. --Repeat EUS/FNA of pancreatic mass --Follow-up with urology regarding prostate --Will obtain records from [place] and to sort out prior pancreatitis and operative history --Follow-up with me after repeat EUS/FNA Jumana Calloway MD [facility] Surgeon documented in this encounter [facility] 01-13-2024 Note HNO ID: [id number] Author: JEWEL FUENTES MD Service: ? Author Type: Physician Type: Procedures Filed: 01/13/2024 10:16 Note Text: Procedure performed: Transrectal ultrasound of the prostate Indication for procedure: History of lower urinary tract symptoms with history of weak stream despite Flomax Description of procedure: Ultrasound probe was placed in the rectum Prostate volume was noted to be at 32 mL, length 33 mm height 45 mm and width 40 mm Is noted presence of a prostatic nodule right lobe measuring 1.7 x 1.2 cm in the transition zone No evidence of calcifications Prostate needle biopsy recommended and patient is agreeable [facility] 01-13-2024 Procedure note Procedure performed: Transrectal ultrasound of the prostate Indication for procedure: History of lower urinary tract symptoms with history of weak stream despite Flomax Description of procedure: Ultrasound probe was placed in the rectum Prostate volume was noted to be at 32 mL, length 33 mm height 45 mm and width 40 mm Is noted presence of a prostatic nodule right lobe measuring 1.7 x 1.2 cm in the transition zone No evidence of calcifications Prostate needle biopsy recommended and patient is agreeable [facility] 01-13-2024 Procedure note Procedure performed: Transrectal ultrasound of the prostate Indication for procedure: History of lower urinary tract symptoms with history of weak stream despite Flomax Description of procedure: Ultrasound probe was placed in the rectum Prostate volume was noted to be at 32 mL, length 33 mm height 45 mm and width 40 mm Is noted presence of a prostatic nodule right lobe measuring 1.7 x 1.2 cm in the transition zone No evidence of calcifications Prostate needle biopsy recommended and patient is agreeable CYSTOSCOPY PROCEDURE NOTE : Kyle Mcdaniel is a 63 year old male who presents with LUTS for CYSTOSCOPY . PRE-OP/PRE-PROCEDURE DIAGNOSIS: LUTS,Thick bladder wall POST-OP/POST-PROCEDURE DIAGNOSIS: enlarged lateral lobes of the prostate SURGERY/PROCEDURE(S): cystoscopy Pt ID verified with patient: Yes Procedure verified with patient: Yes Procedure confirmed with physician and product support representative: Yes UNIVERSAL PROTOCOL / SAFETY CHECKLIST Procedure to be Performed: cystoscopy Sign In: A Moment of CARE was completed. Personnel directly involved with the procedure wore the appropriate PPE (Personal Protective Equipment). Patient/Surrogate Stated/Verified: PATIENT VERIFIED(optional for EMERGENT procedures): Patient name, Date of , Relevant allergies, and The intended procedure Time Out Communication: Intended patient and procedure match the source documents. Consent documented and matches the intended procedure. Sign Out: SIGN OUT (optional for EMERGENT procedures): No specimen collected. Jewel Fuentes MD A urinalysis was performed revealing no evidence of infection. The benefits, risks, alternatives of the cystoscopy procedure and personnel were discussed with the patient. The verbal consent was obtained and the patient agrees to proceed. Procedure: The patient was placed on the procedure table in the supine position and prepped and draped in the usual sterile fashion. 2% Lidocaine Jelly was placed per urethra as an anesthetic in the standard fashion. Once adequate local anesthesia was achieved, the tip of the flexible cystoscope was carefully placed into the urethra under direct visual guidance. The scope was negotiated through the pendulous urethra to the level of the bulbar urethra with no evidence of stricture. The verumontanum came into view and the scope was negotiated through the prostatic urethra which showed evidence of bi lobar occlusive disease. The bladder was entered and careful ortez endoscopy was carried out. The posterior, superior and lateral olsen and dome of the bladder were all well visualized and the scope was retroflexed upon itself. The findings were consistent with no evidence of bladder mucosal pathology. The findings were consistent with smooth, not trabeculated bladder. At the conclusion of the procedure, the flexible cystoscope was removed atraumatically. The patient tolerated the procedure without complications. Patient was given standard post-procedure instructions, and was directed to complete the course of oral antibiotics and increase oral fluid intake as directed. IMPRESSION: Enlarged lateral lobes of prostate with frequency,nocturia and weak urinary stream PLAN: Pt is on flomax,Rezum offered and he is agreable Jewel Fuentes MD Electronically Signed: Jewel Fuentes MD January 12, 2024 8:34 AM This note was partially created using voice recognition software and is inherently subject to errors including those of syntax and "sound-alike" substitutions which may escape proofreading. In such instances, original meaning may be extrapolated by contextual derivation. documented in this encounter [facility] 01-12-2024 Note HNO ID: [id number] Author: JEWEL FUENTES MD Service: ? Author Type: Physician Type: Procedures Filed: 01/13/2024 10:16 Note Text: CYSTOSCOPY PROCEDURE NOTE : Kyle Mcdaniel is a 63 year old male who presents with LUTS for CYSTOSCOPY . PRE-OP/PRE-PROCEDURE DIAGNOSIS: LUTS,Thick bladder wall POST-OP/POST-PROCEDURE DIAGNOSIS: enlarged lateral lobes of the prostate SURGERY/PROCEDURE(S): cystoscopy Pt ID verified with patient: Yes Procedure verified with patient: Yes Procedure confirmed with physician and product support representative: Yes UNIVERSAL PROTOCOL / SAFETY CHECKLIST Procedure to be Performed: cystoscopy Sign In: A Moment of CARE was completed. Personnel directly involved with the procedure wore the appropriate PPE (Personal Protective Equipment). Patient/Surrogate Stated/Verified: PATIENT VERIFIED(optional for EMERGENT procedures): Patient name, Date of , Relevant allergies, and The intended procedure Time Out Communication: Intended patient and procedure match the source documents. Consent documented and matches the intended procedure. Sign Out: SIGN OUT (optional for EMERGENT procedures): No specimen collected. Jewel Fuentes MD A urinalysis was performed revealing no evidence of infection. The benefits, risks, alternatives of the cystoscopy procedure and personnel were discussed with the patient. The verbal consent was obtained and the patient agrees to proceed. Procedure: The patient was placed on the procedure table in the supine position and prepped and draped in the usual sterile fashion. 2% Lidocaine Jelly was placed per urethra as an anesthetic in the standard fashion. Once adequate local anesthesia was achieved, the tip of the flexible cystoscope was carefully placed into the urethra under direct visual guidance. The scope was negotiated through the pendulous urethra to the level of the bulbar urethra with no evidence of stricture. The verumontanum came into view and the scope was negotiated through the prostatic urethra which showed evidence of bi lobar occlusive disease. The bladder was entered and careful ortez endoscopy was carried out. The posterior, superior and lateral olsen and dome of the bladder were all well visualized and the scope was retroflexed upon itself. The findings were consistent with no evidence of bladder mucosal pathology. The findings were consistent with smooth, not trabeculated bladder. At the conclusion of the procedure, the flexible cystoscope was removed atraumatically. The patient tolerated the procedure without complications. Patient was given standard post-procedure instructions, and was directed to complete the course of oral antibiotics and increase oral fluid intake as directed. IMPRESSION: Enlarged lateral lobes of prostate with frequency,nocturia and weak urinary stream PLAN: Pt is on flomax,Rezum offered and he is agreable Jewel Fuentes MD Electronically Signed: Jewel Fuentes MD January 12, 2024 8:34 AM This note was partially created using voice recognition software and is inherently subject to errors including those of syntax and sound-alike substitutions which may escape proofreading. In such instances, original meaning may be extrapolated by contextual derivation. [facility] 01-12-2024 Procedure note CYSTOSCOPY PROCEDURE NOTE : Kyle Mcdaniel is a 63 year old male who presents with LUTS for CYSTOSCOPY . PRE-OP/PRE-PROCEDURE DIAGNOSIS: LUTS,Thick bladder wall POST-OP/POST-PROCEDURE DIAGNOSIS: enlarged lateral lobes of the prostate SURGERY/PROCEDURE(S): cystoscopy Pt ID verified with patient: Yes Procedure verified with patient: Yes Procedure confirmed with physician and product support representative: Yes UNIVERSAL PROTOCOL / SAFETY CHECKLIST Procedure to be Performed: cystoscopy Sign In: A Moment of CARE was completed. Personnel directly involved with the procedure wore the appropriate PPE (Personal Protective Equipment). Patient/Surrogate Stated/Verified: PATIENT VERIFIED(optional for EMERGENT procedures): Patient name, Date of , Relevant allergies, and The intended procedure Time Out Communication: Intended patient and procedure match the source documents. Consent documented and matches the intended procedure. Sign Out: SIGN OUT (optional for EMERGENT procedures): No specimen collected. Jewel Fuentes MD A urinalysis was performed revealing no evidence of infection. The benefits, risks, alternatives of the cystoscopy procedure and personnel were discussed with the patient. The verbal consent was obtained and the patient agrees to proceed. Procedure: The patient was placed on the procedure table in the supine position and prepped and draped in the usual sterile fashion. 2% Lidocaine Jelly was placed per urethra as an anesthetic in the standard fashion. Once adequate local anesthesia was achieved, the tip of the flexible cystoscope was carefully placed into the urethra under direct visual guidance. The scope was negotiated through the pendulous urethra to the level of the bulbar urethra with no evidence of stricture. The verumontanum came into view and the scope was negotiated through the prostatic urethra which showed evidence of bi lobar occlusive disease. The bladder was entered and careful ortez endoscopy was carried out. The posterior, superior and lateral olsen and dome of the bladder were all well visualized and the scope was retroflexed upon itself. The findings were consistent with no evidence of bladder mucosal pathology. The findings were consistent with smooth, not trabeculated bladder. At the conclusion of the procedure, the flexible cystoscope was removed atraumatically. The patient tolerated the procedure without complications. Patient was given standard post-procedure instructions, and was directed to complete the course of oral antibiotics and increase oral fluid intake as directed. IMPRESSION: Enlarged lateral lobes of prostate with frequency,nocturia and weak urinary stream PLAN: Pt is on flomax,Rezum offered and he is agreable Jewel Fuentes MD Electronically Signed: Jewel Fuentes MD January 12, 2024 8:34 AM This note was partially created using voice recognition software and is inherently subject to errors including those of syntax and "sound-alike" substitutions which may escape proofreading. In such instances, original meaning may be extrapolated by contextual derivation. [facility] 01-04-2024 Telephone encounter Note Joe moore/ richard 01/11. Evans Lyles [facility] 01-04-2024 Miscellaneous Notes Pt scheudled w/ tabet 01/11. Evans Lyles PT still admitted. PT is still admitted. PT also lives in [place] may need to check and see if PT wants options in [place], or in [place], as that might be closer. Evans Lyles Patient needs follow up for outpatient cystoscopy. Thanks, Bob Valdez MD PGY 2 Urology #[id number] 5:44 PM 12/31/23 documented in this encounter [facility] 01-03-2024 Telephone encounter Note PT still admitted. [facility] 01-02-2024 Telephone encounter Note PT is still admitted. PT also lives in [place] may need to check and see if PT wants options in [place], or in [place], as that might be closer. Evans Lyles [facility] 12-31-2023 Telephone encounter Note Patient needs follow up for outpatient cystoscopy. Bob Gonzalez MD PGY 2 Urology #[id number] 5:44 PM 12/31/23 [facility] Work Phone: 12-24-2023 Note . MICRO - Microbiology PROCEDURE: Blood Culture (bacterial) [*1] SOURCE: Blood BODY SITE: COLLECTED DATE/TIME: 12/19/2023 13:01 EDT RECEIVED DATE/TIME: 12/19/2023 13:42 EDT START DATE/TIME: 12/19/2023 13:43 EDT FREE TEXT SOURCE: FINAL REPORTS Final Report [] Verified Date/Time/Personnel: 12/24/2023 13:59 EDT Blood Culture: No Growth at 5 days. PRELIMINARY REPORTS Preliminary Report [] Verified Date/Time/Personnel: 12/19/2023 14:59 EDT Culture has been received in lab and is no growth to date. Routine cultures are held for 5 days. Performing Locations *1: This test was performed at: [address], [address] [place] [address] ([facility] 12-24-2023 Note . MICRO - Microbiology PROCEDURE: Blood Culture (bacterial) [*1] SOURCE: Blood BODY SITE: COLLECTED DATE/TIME: 12/19/2023 08:18 EDT RECEIVED DATE/TIME: 12/19/2023 10:07 EDT START DATE/TIME: 12/19/2023 10:07 EDT FREE TEXT SOURCE: FINAL REPORTS Final Report [] Verified Date/Time/Personnel: 12/24/2023 10:59 EDT Blood Culture: No Growth at 5 days. PRELIMINARY REPORTS Preliminary Report [] Verified Date/Time/Personnel: 12/19/2023 10:59 EDT Culture has been received in lab and is no growth to date. Routine cultures are held for 5 days. Performing Locations *1: This test was performed at: [address], [address] [place] [address] ([place]) 12-21-2023 Hospital Discharge instructions Patient Education 12/21/2023 13:03:42 Abdominal Pain, Adult Abdominal Pain, Adult Pain in the abdomen (abdominal pain) can be caused by many things. Often, abdominal pain is not serious and it gets better with no treatment or by being treated at home. However, sometimes abdominal pain is serious. Your health care provider will ask questions about your medical history and do a physical exam to try to determine the cause of your abdominal pain. Follow these instructions at home: Medicines Take qxqt-ryw-ztrlizg and prescription medicines only as told by your health care provider. Do not take a laxative unless told by your health care provider. General instructions Watch your condition for any changes. Drink enough fluid to keep your urine pale yellow. Keep all follow-up visits as told by your health care provider. This is important. Contact a health care provider if: Your abdominal pain changes or gets worse. You are not hungry or you lose weight without trying. You are constipated or have diarrhea for more than 2 3 days. You have pain when you urinate or have a bowel movement. Your abdominal pain wakes you up at night. Your pain gets worse with meals, after eating, or with certain foods. You are vomiting and cannot keep anything down. You have a fever. You have blood in your urine. Get help right away if: Your pain does not go away as soon as your health care provider told you to expect. You cannot stop vomiting. Your pain is only in areas of the abdomen, such as the right side or the left lower portion of the abdomen. Pain on the right side could be caused by appendicitis. You have bloody or black stools, or stools that look like tar. You have severe pain, cramping, or bloating in your abdomen. You have signs of dehydration, such as: ?Dark urine, very little urine, or no urine. ?Cracked lips. ?Dry mouth. ?Sunken eyes. ?Sleepiness. ?Weakness. You have trouble breathing or chest pain. Summary Often, abdominal pain is not serious and it gets better with no treatment or by being treated at home. However, sometimes abdominal pain is serious. Watch your condition for any changes. Take ztyl-jii-wfnkavo and prescription medicines only as told by your health care provider. Contact a health care provider if your abdominal pain changes or gets worse. Get help right away if you have severe pain, cramping, or bloating in your abdomen. This information is not intended to replace advice given to you by your health care provider. Make sure you discuss any questions you have with your health care provider. Document Released: 03/22/2006 Document Revised: 10/21/2019 Document Reviewed: 10/21/2019 [employer] Patient Education 2019 Health As We Age. Follow Up Care 12/18/2023 10:31:01 With:MAGO ELLIOTT MD Address: [address] [place] [id number]- When:1-2 days Comments:Please call the office to schedule a hospital follow up appointment [facility] 12-21-2023 Note Discharge Instructions Thank you for allowing [facility] to assist you with your healthcare needs. The following is important discharge information regarding your hospital visit. Your Care Team MAGO ELLIOTT MD Your Diagnosis Chronic pancreatitis due to chronic alcoholism What to do next Instructions From Your Doctor Please make appointment to follow-up with your primary care physician and gastroenterology Start taking Creon for chronic pancreatitis Take oxycodone as needed for pain, I am only allowed to prescribe a limited amount. If you need further oxycodone then you need to follow-up with your primary care to get further prescriptions Take bisacodyl as needed for constipation. Follow Up Appointments Follow Up with MAGO ELLIOTT MD When:Within 1-2 days Where:[address] [place] [id number]- Additional Information: Please call the office to schedule a hospital follow up appointment The Following Activity and Diet Have Been Ordered for You Discharge Activity - Ordered -- Activity As Tolerated, 12/21/23 12:58:00 EDT Discharge Diet - Ordered -- 12/21/23 12:58:00 EDT The Following Equipment Has Been Ordered for You No qualifying data available. The Following Treatments Have Been Ordered for You Discharge Labs No qualifying data available. Discharge Radiology No qualifying data available. Other Therapies No qualifying data available. Post Acute Orders No qualifying data available. Someone Will Contact You Regarding These Home Health Referrals No home referrals have been ordered for you. No one will call you. Allergies acetaminophen rash erythromycin Medications Please ask your primary doctor or pharmacist before taking any other medication not listed, including over the counter drugs, herbal medications, vitamins and or supplements as they may interact with your home medications. What How Much When Why Instructions Last Dose New bisacodyl (bisacodyl 5 mg oral tablet) 2 tab(s) by mouth Once a day as needed for Constipation Duration: 5 Days with a full glass of water Printed Prescription New oxyCODONE (oxyCODONE 5 mg oral tablet ( IMMEDIATE release )) 1 tab(s) by mouth Every 4 hours as needed for Pain, scale 4-10 Chronic pancreatitis due to chronic alcoholism Duration: 2 Days Printed Prescription New pancrelipase (Creon 12,000 units oral delayed release capsule) 1 cap by mouth Four (4) times a day with meals Refills: 2 Printed Prescription Unchanged aspirin (aspirin 81 mg oral delayed release tablet) 1 tab(s) by mouth Once a day Unchanged insulin glargine (Lantus 100 units/ mL10 ml vial solution) 25 unit(s) Subcutaneous (INT) Two (2) times a day Unchanged insulin lispro (HumaLOG) (HumaLOG KwikPen 100 units/ mL injectable PEN) sliding scale Subcutaneous Three (3) times a day Unchanged loratadine (Claritin 10 mg oral tablet) 1 tab(s) by mouth Once a day Unchanged metFORMIN (metFORMIN 1000 mg oral tablet (IR)) 1 tab(s) by mouth Two (2) times a day Unchanged montelukast (montelukast 10 mg oral tablet) 1 tab(s) by mouth Once a day Unchanged multivitamin (Multiple Vitamins oral capsule) 1 cap by mouth Once a day Unchanged rosuvastatin (rosuvastatin 40 mg oral tablet) 1 tab(s) by mouth Once a day Unchanged semaglutide (semaglutide 2 mg/ 3 mL (0.25 mg or 0.5 mg dose) subcutaneous solution) 0.25 Milligram Subcutaneous Every week rotate injection sites Unchanged sertraline (sertraline 50 mg oral tablet) 1 tab(s) by mouth Once a day Unchanged tamsulosin (tamsulosin 0.4 mg oral capsule) 1 cap by mouth Once a day Unchanged traZODone (traZODone 100 mg oral tablet) 1 tab(s) by mouth Daily at bedtime Please take this list to your next doctor s visit. Bring all medications you take, including over the counter medications, herbals and other supplements with you to your doctor s visit. Patients and families are reminded to discard old lists and to update any records with all medication providers or retail pharmacies. Education Materials Abdominal Pain, Adult Pain in the abdomen (abdominal pain) can be caused by many things. Often, abdominal pain is not serious and it gets better with no treatment or by being treated at home. However, sometimes abdominal pain is serious. Your health care provider will ask questions about your medical history and do a physical exam to try to determine the cause of your abdominal pain. Follow these instructions at home: Medicines Take umuv-krw-tozjcue and prescription medicines only as told by your health care provider. Do not take a laxative unless told by your health care provider. General instructions Watch your condition for any changes. Drink enough fluid to keep your urine pale yellow. Keep all follow-up visits as told by your health care provider. This is important. Contact a health care provider if: Your abdominal pain changes or gets worse. You are not hungry or you lose weight without trying. You are constipated or have diarrhea for more than 2 3 days. You have pain when you urinate or have a bowel movement. Your abdominal pain wakes you up at night. Your pain gets worse with meals, after eating, or with certain foods. You are vomiting and cannot keep anything down. You have a fever. You have blood in your urine. Get help right away if: Your pain does not go away as soon as your health care provider told you to expect. You cannot stop vomiting. Your pain is only in areas of the abdomen, such as the right side or the left lower portion of the abdomen. Pain on the right side could be caused by appendicitis. You have bloody or black stools, or stools that look like tar. You have severe pain, cramping, or bloating in your abdomen. You have signs of dehydration, such as: ? Dark urine, very little urine, or no urine. ? Cracked lips. ? Dry mouth. ? Sunken eyes. ? Sleepiness. ? Weakness. You have trouble breathing or chest pain. Summary Often, abdominal pain is not serious and it gets better with no treatment or by being treated at home. However, sometimes abdominal pain is serious. Watch your condition for any changes. Take hwao-wjj-nsxdjbx and prescription medicines only as told by your health care provider. Contact a health care provider if your abdominal pain changes or gets worse. Get help right away if you have severe pain, cramping, or bloating in your abdomen. This information is not intended to replace advice given to you by your health care provider. Make sure you discuss any questions you have with your health care provider. Document Released: 03/22/2006 Document Revised: 10/21/2019 Document Reviewed: 10/21/2019 Elsevier Patient Education 2019 [employer] Additional Information VACCINATE! IT SAVES LIVES! Members of the community who have not yet received the COVID-19 vaccine and would like to receive it can visit one of [facility] vaccine clinics. There are many vaccine clinic locations within the [facility]. For locations and available times, please visit [email or web address].coronavirus.[place] .gov/. It is important to note that some COVID mobile vaccine clinics are held outdoors and may be canceled in rainy or stormy conditions. To learn more about pediatric vaccinations (ages 5-11), we invite you to visit the [employer] webpage. [email or web address].org/page [email or web address]-[email or web address]-Bhoqrrngsgb-Frequently -[email or web address]-Questions.html To learn more about the COVID-19 vaccine, we invite you to visit the CDC website for a list of frequently asked questions.https://www.cdc.gov/coron avirus/2019-ncov/vaccines/faq.html [employer] Patient Portal Access Instructions: Stay connected with your healthcare team and access your personal medical information anytime with the [employer] Patient Portal. Please follow the directions below to create your [employer] account: 1.Access the email account you provided upon registration to the hospital/physician office.2.Look for an invitation email from [facility].3.Open the email and access the invitation link: Accept Invitation to [employer].4.Fill in the required middleton to create your account. To access your account, visit [email or web address]. Click the blue button labeled "Access Patient Portal" and then log in with the username and password that you created in the steps above. You will be able to view your test results, lab results, a summary of your visits, upcoming appointments and more. There is also a convenient messaging option where you can send secure messages to your provider. In addition, you will have the ability to download any documents or summaries to your computer and/or send the information securely to a physician. Remember that your healthcare information is confidential, so carefully consider who you will allow to register on the [facility] Patient Portal for access to your information. You can also access the [facility] Patient Portal on the [facility] pio. Simply click on "Patient Portal" and then log into your account. If you would like to receive a full copy of your medical records, please contact the [facility] Medical Records Department by calling [phone], Monday through Monday between 8 a.m. and 4:30 p.m. HOW TO SAFELY DISPOSE OF PRESCRIPTION MEDICATIONS Please use one of the following methods to safely dispose of your unused medications. 1.Use a drug disposal kit: the drug disposal pouch allows you to safely discard your old and unused drugs. Ask your nurse to give you one when you are discharged.2.Visit a local take-back location: Many local pharmacies and police departments have programs that collect old and unwanted prescription drugs. Call your local pharmacy or go to http://[employer]/8M2Nf8f to find one close to you.3.Make use of household items: Use cat litter or old coffee grounds to dispose medications if other options are not available. Mix your drugs with these household products, seal them in an airtight container and throw it into the garbage. Call [facility]: [phone] to be sure your drugs can be disposed of in this way. Some medicines may require a different approach.4.Never flush your medications down the toilet. IF YOU HAVE BEEN PRESCRIBED AN OPIOID FOR PAIN If you have been prescribed an opioid (such as hydrocodone, oxycodone or morphine), it is critical to understand the possible side effects and risks of opioid pain medications. Even when taken as directed, opioids can have several side effects including: Tolerance, meaning you might need to take more of a medication for the same pain relief. Nausea, vomiting and/or constipation. Sleepiness, dizziness, dry mouth, confusion, depression or itching. Physical dependence, meaning you have withdrawal symptoms when a medication is stopped, can develop within a few days. KNOW YOUR RESPONSIBILITIES It is important to know exactly how much and how often to take the opioid pain medications you are prescribed. Never take opioids in higher amounts or more often than prescribed. Do not combine opioids with alcohol or other drugs that cause drowsiness, such as benzodiazepines, also known as benzos, including diazepam and alprazolam, muscle relaxants or sleep aids. Never sell or share prescription opioids. This is illegal. Store opioids in a secure place and out of reach of others (including children, family, friends and visitors). The last page of this document has been signed and retained as a CHART COPY. Signatures Patient Education Materials Abdominal Pain, Adult Medication Leaflets My discharge plan and instructions have been reviewed and explained to me and I,KYLE MCDANIEL understand my current condition and have read and understand these discharge instructions. I have received a written copy of the plan/instructions. If I have questions, I am aware that I should contact my doctor. 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 Acute on chronic pancreatitis 2. Recent hepatic abscesses status post drainage and completion of antibiotics 3. Type 2 diabetes mellitus 4. Past history of alcohol use 5. History of CVA Hospital Course 63-year-old male who has a history of chronic pancreatitis since 2018. His chronic pancreatitis is secondary to alcohol use, also has type 2 diabetes mellitus, BPH and has had a CVA. He was discharged from [facility] on 11/22/2023 as a transfer to the [facility]. 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 During that hospitalization he also had hepatic lesions which were thought to be abscesses, he had drains placed, completed antibiotics and drain has been removed. He presented to the [facility] emergency room on 12/19/2023 because of worsening abdominal pain. The patient's history was consistent with acute on chronic pancreatitis, he was started on IV fluids, given IV analgesics and transition to oral analgesics on the penultimate day of hospitalization. He was started on Creon, he got improvement with Creon. Patient does stable on the day of discharge from hospital he was not having any significant pain. 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 Allergies acetaminophen rash erythromycin Consults Consult to Physician - Ordered -- 12/19/23 7:47:00 EDT, ATIF MENEDZ MD, Routine, Abdominal pain. Recent history of pancreatic mass and liver abscess Imaging Results and Diagnostics CT Abd/Pelvis w/ IV Contrast Only Result Date: December 18, 2023 Verified By: ALYCIA HAWK MD CLINICAL STATEMENT: IMPRESSION: Interval removal of hepatic drainage catheters. There is infiltrativehypodensity noted within the inferior right hepatic lobe measuring up to 6cm. Difficult to compare to the prior study given the prior hepatic drainshowever appears smaller when compared to the prior MRI from 11/19/2023.Probably this represents residual phlegmon, perhaps with microabscesses. Ifclinically appropriate, repeat MRI could be considered. Reducing hyacinth hepatis adenopathy. Similar masslike prominence of the pancreatic head better evaluated on theprior MR. Again could represent focal pancreatitis versus pancreatic neoplasm. Stable mildly dilated common bile duct and intrahepatic biliary ducts. Couldbe related to calcification seen near the ampullary Vater versus abovepancreatic head disease. I have personally reviewed the images of this examination and agree with theresident's findings and interpretation. Physical Exam Vitals and Measurements T: 36.4 C (Oral) TMIN: 36.4 C (Oral) TMAX: 36.6 C (Oral) HR: 69 RR: 16 BP: 96/64 SpO2: 94% Weight Dosing Weight: 100 kg (12/19/23) Dosing Weight: 100 kg (12/18/23) GENERAL: Pt is comfortable in bed. Appears in no acute distress. HEENT: Mucous membranes pink and moist NEURO: Alert and oriented X 3 CHEST : No accesory muscle use, equal air entry bilaterally, no adventitious breath sounds GI: Normoactive BS, abdomen soft, mild lower abdominal tenderness without any signs of peritoneal irritation. Code Status Code Status - Ordered -- 12/18/23 22:33:00 EDT, Full Code, Constant Order Admission Date 12/19/2023 Discharge Date 12/21/2023 Patient Instructions Please make appointment to follow-up with your primary care physician and gastroenterology Start taking Creon for chronic pancreatitis Take oxycodone as needed for pain, I am only allowed to prescribe a limited amount. If you need further oxycodone then you need to follow-up with your primary care to get further prescriptions Take bisacodyl as needed for constipation. Medications New Prescription bisacodyl (bisacodyl 5 mg oral tablet)2 tab(s) by mouth once a day as needed Constipation for 5 Days. with a full glass of water. Refills: 0. oxyCODONE (oxyCODONE 5 mg oral tablet ( IMMEDIATE release ))1 tab(s) by mouth every 4 hours as needed Pain, scale 4-10 for 2 Days. Refills: 0. pancrelipase (Creon 12,000 units oral delayed release capsule)1 cap by mouth four (4) times a day with meals. Refills: 2. Unchanged aspirin (aspirin 81 mg oral delayed release tablet)1 tab(s) by mouth once a day. insulin glargine (Lantus 100 units/mL10 ml vial solution)25 unit(s) Subcutaneous (INT) two (2) times a day. insulin lispro (HumaLOG) (HumaLOG KwikPen 100 units/mL injectable PEN)sliding scale Subcutaneous three (3) times a day. loratadine (Claritin 10 mg oral tablet)1 tab(s) by mouth once a day. metFORMIN (metFORMIN 1000 mg oral tablet (IR))1 tab(s) by mouth two (2) times a day. montelukast (montelukast 10 mg oral tablet)1 tab(s) by mouth once a day. multivitamin (Multiple Vitamins oral capsule)1 cap by mouth once a day. rosuvastatin (rosuvastatin 40 mg oral tablet)1 tab(s) by mouth once a day. semaglutide (semaglutide 2 mg/3 mL (0.25 mg or 0.5 mg dose) subcutaneous solution)0.25 Milligram Subcutaneous every week. rotate injection sites. sertraline (sertraline 50 mg oral tablet)1 tab(s) by mouth once a day. tamsulosin (tamsulosin 0.4 mg oral capsule)1 cap by mouth once a day. traZODone (traZODone 100 mg oral tablet)1 tab(s) by mouth daily at bedtime. Follow Up Follow Up with MAGO ELLIOTT MD When:Within 1-2 days Where:[address] [facility] [address] [place] [address]- Additional Information: Please call the office to schedule a hospital follow up appointment Follow Up Appointments No qualifying data available. Follow Up Labs/Studies Discharge Labs No Follow-up Labs Discharge Studies No Follow-up Studies Discharge Diet Discharge Diet - Ordered -- 12/21/23 12:58:00 EDT Discharge Activity Discharge Activity - Ordered -- Activity As Tolerated, 12/21/23 12:58:00 EDT Condition on Discharge Stable Discharge Disposition Home Information Provided To The patient and his Time Spent Greater than 40 minutes was spent in discharge planning. More than 50% of the time was spent in direct patient care which included time spent speaking with the patient and her family members about her medical condition and treatment plan. Digitally Signed by SONI OROSCO MD on 12/21/2023 04:19 PM [facility] 12-20-2023 Note Date of Service 12/20/2023 Chief Complaint Abdominal pain Subjective The patient is having less abdominal pain today, however still requiring significant amount of analgesics. He does state that with starting Creon he feels that his pain is a lot better controlled. He is tolerating his meals, has not had any nausea or vomiting. Objective Vitals and Measurements T: 36.6 C (Oral) TMIN: 36.4 C (Oral) TMAX: 36.6 C (Oral) HR: 64 RR: 16 BP: 108/78 SpO2: 94% Intake and Output 7AM Yesterday to 7AM Today Intake and Output (Last 24 hours) Intake Oral Intake 1320.00 Output Stool Volume 0.00 Stool Count 0.00 Urine Count 8.00 Total Summary Total Intake 1320.00 Total Output 0.00 Fluid Balance 1320.00 Physical Exam GENERAL: Adult male sitting up in bed having lunch in no acute cardiopulmonary distress. HEENT: Mucous membranes pink and moist NEURO: Alert and oriented X 3 Abdomen: Soft, lower abdominal tenderness, no signs of peritoneal irritation Respiratory system: Chest clear. Weight Dosing Weight: 100 kg (12/19/23) Dosing Weight: 100 kg (12/18/23) Medications Medications (23) Active Scheduled: (14) aspirin 81 mg EC 81 mg 1 tab(s), Oral, qDay enoxaparin 40 mg/ 0.4mL syringe 40 mg 0.4 mL, Subcutaneous, qDay insulin glargine 25 unit(s) 0.25 mL, Subcutaneous (INT), BID insulin lispro 100 units/mL Soln (3 mL) Give 0-10 units/dose, Subcutaneous, TIDAC loratadine 10 mg Tablet 10 mg 1 tab(s), Oral, qDay montelukast 10 mg Tablet 10 mg 1 tab(s), Oral, qDay multivitamin (Nephrocaps) Vitamin B Complex with C and Folic Acid Capsule 1 cap(s), Oral, qDay Nicoderm patch REMOVAL 1 EA, Miscellaneous, q24h nicotine 21 mg/24 hr ER patch 21 mg 1 patch(es), Transdermal, q24h pancrelipase (12K lipase, 38K protease, 60K amylase) ER capsule 1 cap(s), Oral, QIDM rosuvastatin 20 mg tablet 40 mg 2 tab(s), Oral, qDay sertraline 50 mg tablet 50 mg 1 tab(s), Oral, qDay tamsulosin 0.4 mg Capsule 0.4 mg 1 cap(s), Oral, qHS traZODONE 100 mg Tablet 100 mg 1 tab(s), Oral, qHS Continuous: (0) PRN: (9) albuterol - ipratropium 2.5 mg-0.5 mg/3 mL Inhal Randee UD 3 mL, Inhalation, q4hRT dextrose 50% Solution Disp syringe 50 mL 12.5 gram(s) 25 mL, IV Push, AsDirected guaifenesin 100 mg/5 mL Liquid SUGAR-FREE 120 mL 200 mg 10 mL, Oral, q4h ibuprofen 400 mg tablet 400 mg 1 tab(s), Oral, q6h melatonin 3 mg tablet 3 mg 1 tab(s), Oral, qHS ondansetron 2 mg/ 1 mL 2 mL INJ 4 mg 2 mL, IV Push, q4h oxycodone 5 mg tablet (immediate release) 10 mg 2 tab(s), Oral, q4h polyethylene glycol 3350 - UD packet 17 gram(s) 15 mL, Oral, qDay prochlorperazine 10 mg/2 mL vial 5 mg 1 mL, IV Push, q6h Lab Results 06/26 05:40 WBC: 4.1 L Hgb: 13.4 Hct: 40.0 Platelet: 145 L Neutrophil %: 48.6 L Glucose Level: 201 H Sodium Level: 142 Potassium Level: 4.2 BUN: 10.0 Creatinine Lvl (s): 0.69 12/18 13:01 WBC: 5.2 Hgb: 13.8 Hct: 41.1 Platelet: 166 Neutrophil %: 59.9 12/18 08:18 Glucose Level: 126 H Sodium Level: 140 Potassium Level: 4.0 BUN: 7.0 L Creatinine Lvl (s): 0.65 EKG No qualifying data available. Assessment/Plan 1. Acute on chronic pancreatitis 2. Recent hepatic abscesses status post drainage and completion of antibiotics 3. Type 2 diabetes mellitus 4. Past history of alcohol use 5. History of CVA 6. DVT prophylaxis Plan: Patient's abdominal pain is improving but he still was requiring IV Dilaudid today. Based on review of chart he got a total of 4 mg of IV Dilaudid today over 4 doses. I did speak with the patient about switching over to oral analgesics with a goal of probably getting him out of the hospital today. He agrees to try oxycodone. Continue with Creon ADA diet Continue current insulin regimen Enoxaparin for DVT prophylaxis Anticipated Date of Discharge Likely within the next 24 hours Digitally Signed by SONI OROSCO MD on 12/20/2023 04:30 PM [facility] 12-20-2023 Gastroenterology Progress note Date of Service 12/20/2023 Chief Complaint Abdominal pain Subjective Ambulating around room. States he feels good. Pain is greatly improved today he attributes this to starting Creon. Reports normal BM. No melena, hematochezia or acholic stools. Tolerating his ordered diet. Objective Vitals and Measurements T: 36.4 C (Oral) TMIN: 36.4 C (Oral) TMAX: 36.6 C (Oral) HR: 57 RR: 16 BP: 105/66 SpO2: 94% Intake and Output 7AM Yesterday to 7AM Today Intake and Output (Last 24 hours) Intake Oral Intake 1320.00 Output Stool Volume 0.00 Stool Count 0.00 Urine Count 6.00 Total Summary Total Intake 1320.00 Total Output 0.00 Fluid Balance 1320.00 Physical Exam General Appearance: In no acute distress. Appropriate mood and affect. Head: Head is normocephalic and atraumatic. EENT: Sclera are nonicteric. Neck is supple without adenopathy. Trachea is midline. Cardiac: Heart rate and rhythm are normal. S1 and S2 noted. Lungs: No signs of respiratory distress. Lungs are clear bilaterally. On room air. Abdomen: Abdomen is obese, soft, symmetric. BS X 4. No obvious masses or organomegaly appreciated. No tenderness elicited. 3 healing areas on right abdomen previous drain sites. Extremities: No edema noted. Pulses palpable. Neurological: The patient is awake, alert, and oriented to person, place, and time with normal speech. Skin: Skin is warm, dry. Appropriate color for ethnicity. Weight Dosing Weight: 100 kg (12/19/23) Dosing Weight: 100 kg (12/18/23) Medications Medications (24) Active Scheduled: (14) aspirin 81 mg EC 81 mg 1 tab(s), Oral, qDay enoxaparin 40 mg/ 0.4mL syringe 40 mg 0.4 mL, Subcutaneous, qDay insulin glargine 25 unit(s) 0.25 mL, Subcutaneous (INT), BID insulin lispro 100 units/mL Soln (3 mL) Give 0-10 units/dose, Subcutaneous, TIDAC loratadine 10 mg Tablet 10 mg 1 tab(s), Oral, qDay montelukast 10 mg Tablet 10 mg 1 tab(s), Oral, qDay multivitamin (Nephrocaps) Vitamin B Complex with C and Folic Acid Capsule 1 cap(s), Oral, qDay Nicoderm patch REMOVAL 1 EA, Miscellaneous, q24h nicotine 21 mg/24 hr ER patch 21 mg 1 patch(es), Transdermal, q24h pancrelipase (12K lipase, 38K protease, 60K amylase) ER capsule 1 cap(s), Oral, QIDM rosuvastatin 20 mg tablet 40 mg 2 tab(s), Oral, qDay sertraline 50 mg tablet 50 mg 1 tab(s), Oral, qDay tamsulosin 0.4 mg Capsule 0.4 mg 1 cap(s), Oral, qHS traZODONE 100 mg Tablet 100 mg 1 tab(s), Oral, qHS Continuous: (0) PRN: (10) albuterol - ipratropium 2.5 mg-0.5 mg/3 mL Inhal Randee UD 3 mL, Inhalation, q4hRT dextrose 50% Solution Disp syringe 50 mL 12.5 gram(s) 25 mL, IV Push, AsDirected guaifenesin 100 mg/5 mL Liquid SUGAR-FREE 120 mL 200 mg 10 mL, Oral, q4h hydromorphone 1 mg/mL (1mL) INJ 1 mg 1 mL, IV Push, q4h ibuprofen 400 mg tablet 400 mg 1 tab(s), Oral, q6h melatonin 3 mg tablet 3 mg 1 tab(s), Oral, qHS ondansetron 2 mg/ 1 mL 2 mL INJ 4 mg 2 mL, IV Push, q4h oxycodone 5 mg tablet (immediate release) 5 mg 1 tab(s), Oral, q4h polyethylene glycol 3350 - UD packet 17 gram(s) 15 mL, Oral, qDay prochlorperazine 10 mg/2 mL vial 5 mg 1 mL, IV Push, q6h Lab Results 12/19 05:40 WBC: 4.1 L Hgb: 13.4 Hct: 40.0 Platelet: 145 L Neutrophil %: 48.6 L Glucose Level: 201 H Sodium Level: 142 Potassium Level: 4.2 BUN: 10.0 Creatinine Lvl (s): 0.69 12/18 13:01 WBC: 5.2 Hgb: 13.8 Hct: 41.1 Platelet: 166 Neutrophil %: 59.9 12/18 08:18 Glucose Level: 126 H Sodium Level: 140 Potassium Level: 4.0 BUN: 7.0 L Creatinine Lvl (s): 0.65 Imaging Results and Diagnostics CT Abd/Pelvis w/ IV Contrast Only Result Date: December 18, 2023 Verified By: ALYCIA HAWK MD CLINICAL STATEMENT: IMPRESSION: Interval removal of hepatic drainage catheters. There is infiltrativehypodensity noted within the inferior right hepatic lobe measuring up to 6cm. Difficult to compare to the prior study given the prior hepatic drainshowever appears smaller when compared to the prior MRI from 11/19/2023.Probably this represents residual phlegmon, perhaps with microabscesses. Ifclinically appropriate, repeat MRI could be considered. Reducing hyacinth hepatis adenopathy. Similar masslike prominence of the pancreatic head better evaluated on theprior MR. Again could represent focal pancreatitis versus pancreatic neoplasm. Stable mildly dilated common bile duct and intrahepatic biliary ducts. Couldbe related to calcification seen near the ampullary Vater versus abovepancreatic head disease. I have personally reviewed the images of this examination and agree with theresident's findings and interpretation. This document was transcribed utilizing voice recognition software and may contain typographical errors. 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 Likely secondary to chronic pancreatitis. Seems to have had some improvement in symptoms overnight. He was started on Creon by primary team. There is some limited evidence that enzyme therapy can potentially help with pain as it restores active enzymes to the small bowel and targets the altered feedback mechanism to increased pancreatic ductal and tissue pressures and improve ischemia. Reasonable to continue this. Given his history of chronic pancreatitis could certainly have some underlying pancreatic insufficiency. Patient currently has no alarm symptoms. Abdominal exam benign. He is afebrile. No leukocytosis. LFTs are WNL. Imaging appears improved from previous studies. He endorses he completed course of antibiotics as recommended by . Recommend supportive care, symptomatic management. Would limit narcotics due to their adverse GI side effects. Okay for low-salt diet as tolerated. The importance of strict sobriety and abstinence from alcohol going forward was stressed to the patient and it was emphasized that the risk of mortality is greatly increased with continued alcohol abuse. Patient verbalized understanding. We have obtained extensive records from his admission in October and will review them and plan to follow with the patient in the outpatient setting. Our office will reach out to establish follow-up appointment. Further orders/recommendations pending discussion with Dr. Haskins. Nothing further to offer from a GI standpoint at this time. We will sign off. Please call us with any questions or reconsult us if needed. Digitally Signed by CELESTINA SEGOVIA on 12/20/2023 11:04 AM [facility] 12-19-2023 Gastroenterology Consult note Date of Service 12/19/2023 Reason for Consultation Abdominal pain Referring Physician Hospitalist History of Present Illness Patient is a 63-year-old male w/PMHx DM, HLD, TIA/CVA, osteoarthritis, spinal stenosis, chronic pancreatitis, pancreatic head mass, hepatic abscess, and alcohol and nicotine abuse whom we have been consulted for abdominal pain. Noted to have chronic pancreatitis since 2018. Started in [place] where he had unclear surgical intervention. Intermittent flareups since. Relocated to [place] around a year ago and had been going to [facility] and [facility] intermittently for ongoing abd pain. Patient evaluated by our services during an admission in October during which was found to have necrotic intrahepatic fluid collections concerning for abscess along with possibility of neoplasm/masslike prominence at the head of the pancreas. Significant atrophy to pancreatic body and tail noted. He had hepatic drainage tubes placed was subsequently transferred to [facility] for further treatment. Those records are currently unavailable. Presented to the ED on 12/03 due to concern for drainage tube dislodgment. IR evaluation the following day revealed evidence of resolution of the intrahepatic abscess collections and drainage tubes (3) were removed. Return to the ED on 12/17 with complaints of abdominal pain. CT A/P noted interval removal of 3 hepatic drains. Infiltrative hypodensity noted in the inferior right hepatic lobe measuring up to 6 cm. Noted to possibly appear smaller compared with MRI from 11/18. Could be residual phlegmon, perhaps microabscesses. Similar masslike prominence in the pancreatic head noted possibly representing focal pancreatitis versus pancreatic neoplasm. Stable mildly dilated CBD and intrahepatic biliary ducts possibly r/t calcification near the ampullary Deirdre vs above pancreatic head disease. Labs revealed normal lactate, CBC and lipase. CMP notable only for elevated glucose at 139. He has been afebrile. Vital signs stable. Given a dose of Zosyn in the ED. Patient examined resting in bed with his at the bedside. He reports while at [facility] he underwent biopsy of pancreatic lesion and reports it was noncancerous. He endorses ongoing abdominal pain since last admission with no real change in severity or frequency, even after drains were removed. Generalized in nature. Vague as to description. Dull with sharp increase at times. Worse after eating. Also complains of severe nausea. Intermittent nonbloody emesis, but usually just dry heaves. He denies fever, chills. Denies diarrhea or changes in bowel habits. No melena, hematochezia or acholic stools. Admits he previously used more than a pint of hard liquor daily but has not had alcohol since just prior to his admission in October. Review of Systems 10 point review of systems was completed. Pertinent positives/negatives are described above in the HPI and are otherwise negative. Physical Exam Vitals and Measurements T: 36.5 C (Oral) TMIN: 36.2 C (Oral) TMAX: 36.6 C (Oral) HR: 59 RR: 18 BP: 107/66 SpO2: 96% HT: 185.4 cm WT: 100 kg BMI: 29.09 Weight Dosing Weight: 100 kg (12/19/23) Dosing Weight: 100 kg (12/18/23) General Appearance: Lying in bed, in no acute distress. Appropriate mood and affect. Head: Head is normocephalic and atraumatic. EENT: Sclera are nonicteric. Neck is supple without adenopathy. Trachea is midline. Cardiac: Heart rate and rhythm are normal. S1 and S2 noted. Lungs: No signs of respiratory distress. Lungs are clear bilaterally. On room air. Abdomen: Abdomen is obese, soft, symmetric. BS X 4. No obvious masses or organomegaly appreciated. [place] exaggerated display of generalized pain with palpation. Decreased with distraction. Extremities: No edema noted. Pulses palpable. Neurological: The patient is awake, alert, and oriented to person, place, and time with normal speech. Skin: Skin is warm, dry. Appropriate color for ethnicity. Lab Results 12/18 08:18 Glucose Level: 126 H Sodium Level: 140 Potassium Level: 4.0 BUN: 7.0 L Creatinine Lvl (s): 0.65 12/17 12:51 WBC: 7.1 Hgb: 14.3 Hct: 42.9 Platelet: 187 Neutrophil %: 66.2 Glucose Level: 139 H Sodium Level: 139 Potassium Level: 3.7 BUN: 9.0 Creatinine Lvl (s): 0.67 Liver Function Test Total Protein: 6.1 G/dL (12/19/23 08:18:00) Total Protein: 7.1 G/dL (12/18/23 12:51:00) Albumin Level: 3.1 G/dL Low (12/19/23 08:18:00) Albumin Level: 3.7 G/dL (12/18/23 12:51:00) Bili Total: 0.3 mg/dL (12/19/23 08:18:00) Bili Total: 0.4 mg/dL (12/18/23 12:51:00) Alk Phos: 57 U/L (12/19/23 08:18:00) Alk Phos: 66 U/L (12/18/23 12:51:00) AST/SGOT: 20 U/L (12/19/23 08:18:00) AST/SGOT: 15 U/L (12/18/23 12:51:00) ALT/SGPT: 16 U/L (12/19/23 08:18:00) ALT/SGPT: 16 U/L (12/18/23 12:51:00) Imaging Results and Diagnostics CT Abd/Pelvis w/ IV Contrast Only Result Date: December 18, 2023 Verified By: ALYCIA HAWK MD CLINICAL STATEMENT: IMPRESSION: Interval removal of hepatic drainage catheters. There is infiltrativehypodensity noted within the inferior right hepatic lobe measuring up to 6cm. Difficult to compare to the prior study given the prior hepatic drainshowever appears smaller when compared to the prior MRI from 11/19/2023.Probably this represents residual phlegmon, perhaps with microabscesses. Ifclinically appropriate, repeat MRI could be considered. Reducing hyacinth hepatis adenopathy. Similar masslike prominence of the pancreatic head better evaluated on theprior MR. Again could represent focal pancreatitis versus pancreatic neoplasm. Stable mildly dilated common bile duct and intrahepatic biliary ducts. Couldbe related to calcification seen near the ampullary Vater versus abovepancreatic head disease. I have personally reviewed the images of this examination and agree with theresident's findings and interpretation. This document was transcribed utilizing voice recognition software and may contain typographical errors. Assessment/Plan Problem list: Abdominal pain Abnormal imaging > Masslike prominence focal pancreatitis vs pancreatic neoplasm > Stable biliary duct dilation > Infiltrative hypodensity right hepatic lobe (6 cm) Hx Chronic pancreatitis Pancreatic head lesion Hepatic lesion (abscess, s/p drain removal) Alcohol use Patient presents with what appears to be unchanged abdominal pain since last admission. No current alarm symptoms. He is afebrile. No leukocytosis. LFTs are WNL. Imaging appears improved from previous studies. Recommend supportive care, symptomatic management. Would limit narcotics due to their adverse GI side effects. Okay for clear liquids. Advance as tolerated. Will attempt to obtain records. Further orders/recommendations pending discussion with Dr. Mendez. Thank you for this consult. Procedure/Surgical History Pancreas operation Medications Inpatient aspirin 81 mg oral delayed release tablet, 81 mg= 1 tab(s), Oral, qDay Claritin, 10 mg= 1 tab(s), Oral, qDay Dextrose 50% IV Push, 12.5 gram(s)= 25 mL, IV Push, AsDirected, PRN Dilaudid, 1 mg= 1 mL, IV Push, q4h, PRN DuoNeb, 3 mL, Inhalation, q4hRT, PRN guaiFENesin, 200 mg= 10 mL, Oral, q4h, PRN HumaLOG 100 units/mL subcutaneous solution, Give 0-10 units/dose, Subcutaneous, TIDAC Lantus, 25 unit(s)= 0.25 mL, Subcutaneous (INT), BID Lovenox, 40 mg= 0.4 mL, Subcutaneous, qDay melatonin, 3 mg= 1 tab(s), Oral, qHS, PRN metFORMIN 500 mg oral tablet (IR), 1000 mg= 2 tab(s), Oral, BID Miralax Powder Packet, 17 gram(s)= 15 mL, Oral, qDay, PRN montelukast, 10 mg= 1 tab(s), Oral, qDay Motrin, 400 mg= 1 tab(s), Oral, q6h, PRN Multiple Vitamins oral capsule, 1 cap(s), Oral, qDay Nicoderm C-Q 21 mg/24 hr transdermal film, extended release, 21 mg= 1 patch(es), Transdermal, q24h nicotine (Nicoderm Patch REMOVAL), 1 EA, Miscellaneous, q24h Normal Saline 1,000 mL, 1000 mL, Intravenous oxyCODONE 5 mg oral tablet ( IMMEDIATE release ), 5 mg= 1 tab(s), Oral, q4h, PRN prochlorperazine, 5 mg= 1 mL, IV Push, q6h, PRN rosuvastatin, 40 mg= 2 tab(s), Oral, qDay sertraline, 50 mg= 1 tab(s), Oral, qDay tamsulosin, 0.4 mg= 1 cap(s), Oral, qHS traZODone, 100 mg= 1 tab(s), Oral, qHS Zofran, 4 mg= 2 mL, IV Push, q4h, PRN Home aspirin 81 mg oral delayed release tablet, 81 mg= 1 tab(s), Oral, qDay Claritin 10 mg oral tablet, 10 mg= 1 tab(s), Oral, qDay HumaLOG KwikPen 100 units/mL injectable PEN, sliding scale, Subcutaneous, TID Lantus 100 units/mL10 ml vial solution, 25 unit(s), Subcutaneous (INT), BID metFORMIN 1000 mg oral tablet (IR), 1000 mg= 1 tab(s), Oral, BID montelukast 10 mg oral tablet, 10 mg= 1 tab(s), Oral, qDay Multiple Vitamins oral capsule, 1 cap(s), Oral, qDay rosuvastatin 40 mg oral tablet, 40 mg= 1 tab(s), Oral, qDay semaglutide 2 mg/3 mL (0.25 mg or 0.5 mg dose) subcutaneous solution, 0.25 mg, Subcutaneous, qWeek sertraline 50 mg oral tablet, 50 mg= 1 tab(s), Oral, qDay tamsulosin 0.4 mg oral capsule, 0.4 mg= 1 cap(s), Oral, qDay traZODone 100 mg oral tablet, 100 mg= 1 tab(s), Oral, qHS Allergies acetaminophen rash erythromycin Social History Tobacco Nicotine Use: 10 or more cigarettes (1/2 pack or more)/day in last 30 days., 12/05/2023 Immunizations No qualifying data available. Digitally Signed by CELESTINA SEGOVIA on 12/19/2023 01:52 PM Digitally Signed by CELESTINA SEGOVIA on 12/19/2023 01:58 PM [facility] 12-19-2023 Evaluation + Plan note Extrac manjinder from: Title:Clinical Document Author:YOLANDA BYRD MD Date:12/19/23 [facility] Hospitalist History and Physical Date of Admission: patient is being admitted on December 19, 2023 Chief complaint: abdominal pain History of present illness: History is taken from talking with emergency room physician Dr. Arango as well as talking with the patient. Patient has a past medical history of pancreatitis, diabetes mellitus type II, anxiety/depression, hyperlipidemia, BPH, liver abscess, alcohol use, stroke. Readmission documentation. Readmission was discussed with the emergency room physician Dr. Arango. Patient was last discharged from here on November 22, 2023 and during that admission the patient presented with severe abdominal pain and was ultimately found to have concerning findings for pancreatic mass as well as liver abscesses. The patient ended up being transferred to [facility] where he states he had a pancreatic biopsy and the patient states it was noncancerous. Per the patient he was told by [facility] to follow-up with gastroenterology locally. He has completed his antibiotics for the liver abscesses. He did have drains placed which were recently taken out. He now returns with severe abdominal pain. Therefore he will need admitted for further evaluation. Patient states that his symptoms are similar to his recent admission. He denies fevers, chills or night sweats. He is having nausea but no vomiting. Denies diarrhea. Since presenting to the emergency room the patient has been afebrile, overall hemodynamically stable, 95% room air. The following labs and imaging were personally reviewed CBC within normal limits urinalysis not concerning for infection CMP within normal limits lipase within normal limits CT abdomen and pelvis with contrast was difficult to assess however radiology thinks that the 6 cm right hepatic lobe hyper density appear smaller compared to prior MRI. Similar mass like prominence of the pancreatic had. In the emergency room the patient was given multiple doses of fentanyl, Dilaudid, multiple doses Zofran, Zosyn, 1 L of IV fluids. Past medical history: DVT (deep venous thrombosis) Pancreatitis TIA (transient ischemic attack) Tobacco use Pancreas operation Family history: hypertension Social history: Denies smoking cigarettes or alcohol consumption Medications: Home Medications (12) Active aspirin 81 mg oral delayed release tablet 81 mg = 1 tab(s), Oral, qDay Claritin 10 mg oral tablet 10 mg = 1 tab(s), Oral, qDay HumaLOG KwikPen 100 units/mL injectable PEN sliding scale, Subcutaneous, TID Lantus 100 units/mL10 ml vial solution 25 unit(s), Subcutaneous (INT), BID metFORMIN 1000 mg oral tablet (IR) 1,000 mg = 1 tab(s), Oral, BID montelukast 10 mg oral tablet 10 mg = 1 tab(s), Oral, qDay Multiple Vitamins oral capsule 1 cap(s), Oral, qDay rosuvastatin 40 mg oral tablet 40 mg = 1 tab(s), Oral, qDay semaglutide 2 mg/3 mL (0.25 mg or 0.5 mg dose) subcutaneous solution 0.25 mg, Subcutaneous, qWeek sertraline 50 mg oral tablet 50 mg = 1 tab(s), Oral, qDay tamsulosin 0.4 mg oral capsule 0.4 mg = 1 cap(s), Oral, qDay traZODone 100 mg oral tablet 100 mg = 1 tab(s), Oral, qHS Allergies: acetaminophen (rash) erythromycin Review of systems: See HPI for pertinent positives and negatives. All other review of systems have been reviewed and they are negative. Vitals Signs(Last 24 hrs)__Last Charted Minimum Maximum Heart Rate72(DEC 17 22:52)61(DEC 17 22:30)90(DEC 17 19:00) VCA304(DEC 17 22:52)93(DEC 17 10:34)H 147(DEC 17 19:00) DBP73(DEC 17 22:52)62(DEC 17 19:00)79(DEC 17 18:15) Physical examination: HEENT: No Pallor, No Icterus Cardiac: RRR, No murmur Lungs: CTA, good air entry Abdomen: Soft, nondistended, tender to palpation in the epigastric area Musculoskeletal: No joint pains or swelling Extremities: No edema, good pulses Neurological: Alert, no deficits Skin: No rash, no nodules Labs: WBC: 7.1 10^3/mcL (12/18/23 12:51:00) RBC: 5 10^6/mcL (12/18/23 12:51:00) Hgb: 14.3 G/dL (12/18/23 12:51:00) Hct: 42.9 % (12/18/23 12:51:00) MCV: 85.7 fL (12/18/23 12:51:00) MCH: 28.5 pg (12/18/23 12:51:00) MCHC: 33.3 G/dL (12/18/23 12:51:00) RDW: 16.9 % High (12/18/23 12:51:00) Platelet: 187 10^3/mcL (12/18/23 12:51:00) MPV: 8.4 fL (12/18/23 12:51:00) Monocyte Distribution Width: 17.81 (12/18/23 12:51:00) Neutrophil %: 66.2 % (12/18/23 12:51:00) Lymphocyte %: 24.8 % (12/18/23 12:51:00) Monocyte %: 5.7 % (12/18/23 12:51:00) Eosinophil %: 2.9 % (12/18/23 12:51:00) Basophil %: 0.4 % (12/18/23 12:51:00) Neutrophil, Absolute: 4.7 10^3/mcL (12/18/23 12:51:00) Lymphocyte, Absolute: 1.8 10^3/mcL (12/18/23 12:51:00) Monocyte, Absolute: 0.4 10^3/mcL (12/18/23 12:51:00) Eosinophil, Absolute: 0.2 10^3/mcL (12/18/23 12:51:00) Basophil, Absolute: 0 10^3/mcL (12/18/23 12:51:00) UA Specimen Type: Clean Catch (12/18/23 12:46:00) UA Color: Yellow (12/18/23 12:46:00) UA Appear: Clear (12/18/23 12:46:00) UA Spec Grav: 1.015 (12/18/23 12:46:00) UA Glucose: Negative. (12/18/23 12:46:00) UA Bili: Negative. (12/18/23 12:46:00) UA Ketones: Negative.1 (12/18/23 12:46:00) UA Blood: Negative. (12/18/23 12:46:00) UA pH: 6.0 (12/18/23 12:46:00) UA Protein: Negative.1 (12/18/23 12:46:00) UA Urobilinogen: 0.2 (12/18/23 12:46:00) UA Nitrite: Negative. (12/18/23 12:46:00) UA Leuk Est: Negative. (12/18/23 12:46:00) Glucose Level: 139 mg/dL High (12/18/23 12:51:00) Sodium Level: 139 mEq/L (12/18/23 12:51:00) Potassium Level: 3.7 mEq/L (12/18/23 12:51:00) Chloride: 106 mEq/L (12/18/23 12:51:00) CO2: 28 mEq/L (12/18/23 12:51:00) Electrolyte Balance: 5 mEq/L (12/18/23 12:51:00) BUN: 9 mg/dL (12/18/23 12:51:00) Creatinine Lvl (s): 0.67 mg/dL (12/18/23 12:51:00) BUN/Creatinine Ratio: 13.4 ratio (12/18/23 12:51:00) Calcium Lvl: 9.6 mg/dL (12/18/23 12:51:00) Total Protein: 7.1 G/dL (12/18/23 12:51:00) Albumin Level: 3.7 G/dL (12/18/23 12:51:00) Globulin: 3.4 G/dL (12/18/23 12:51:00) A/G Ratio: 1.1 ratio (12/18/23 12:51:00) Bili Total: 0.4 mg/dL (12/18/23 12:51:00) Alk Phos: 66 U/L (12/18/23 12:51:00) AST/SGOT: 15 U/L (12/18/23 12:51:00) ALT/SGPT: 16 U/L (12/18/23 12:51:00) GFR Non-: >60 (12/18/23 12:51:00) GFR : >60 (12/18/23 12:51:00) Lipase Level: 25 U/L (12/18/23 12:51:00) Urinalysis UA Specimen Type: Clean Catch (12/18/23 12:46:00) UA Color: Yellow (12/18/23 12:46:00) UA Appear: Clear (12/18/23 12:46:00) UA Spec Grav: 1.015 (12/18/23 12:46:00) UA Glucose: Negative. (12/18/23 12:46:00) UA Bili: Negative. (12/18/23 12:46:00) UA Ketones: Negative.1 (12/18/23 12:46:00) UA Blood: Negative. (12/18/23 12:46:00) UA pH: 6.0 (12/18/23 12:46:00) UA Protein: Negative.1 (12/18/23 12:46:00) UA Urobilinogen: 0.2 (12/18/23 12:46:00) UA Nitrite: Negative. (12/18/23 12:46:00) UA Leuk Est: Negative. (12/18/23 12:46:00) Assessment and plan: Patient presents on December 19, 2023 with abdominal pain and nausea similar to his recent admission. Abdominal pain and nausea with recent evaluation for pancreatic mass and hepatic abscesses. Will consult gastroenterology for evaluation. Pancreatic mass. Per the patient they did do a biopsy at [facility] which he states was noncancerous. Will consult gastroenterology. Hepatic abscesses status post drain removal on December 05, 2023. Has completed antibiotics. Will get blood cultures. Will hold off on continuing antibiotics. Will consult gastroenterology. Diabetes mellitus type II. Continue home medications Anxiety/depression. Continue medications Hyperlipidemia. Continue statin BPH. Continue home medications Stroke. Continue home medications Prophylaxis Lovenox Code status full code Future Scheduled Tests Radiology* CT Abdomen w/ IV Contrast Only 12/05/23 [facility] 06-25-2024 Note Date of Service 12/19/2023 Chief Complaint Abdominal pain Subjective This is a 63-year-old male who has a history of chronic pancreatitis since 2018. His chronic pancreatitis is secondary to alcohol use, also has type 2 diabetes mellitus, BPH and has had a CVA. He was discharged from [facility] on 11/22/2023 as a transfer to the [facility] [facility]. 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 During that hospitalization he also had hepatic lesions which were thought to be abscesses, he had drains placed, completed antibiotics and drain has been removed. The patient comes back to the ER because he is having abdominal pain which he thinks is getting worse. His pain is made worse with meals. Objective Vitals and Measurements T: 36.5 C (Oral) TMIN: 36.2 C (Oral) TMAX: 36.6 C (Oral) HR: 59 RR: 18 BP: 107/66 SpO2: 96% HT: 185.4 cm WT: 100 kg BMI: 29.09 Intake and Output 7AM Yesterday to 7AM Today Intake and Output (Last 24 hours) Intake Oral Intake 720.00 Output Urine Count 1.00 Total Summary Total Intake 720.00 Total Output 0.00 Fluid Balance 720.00 Physical Exam GENERAL: Pt is comfortable in bed. Appears in no acute distress. HEENT: Mucous membranes pink and moist NEURO: Alert and oriented X 3 CVS: S1 & S2 audible, Regular Rate and Rhythm Respiratory system: Chest clear GI: Normoactive BS, abdomen soft but diffusely tender. Healed midline surgical scar Weight Dosing Weight: 100 kg (12/19/23) Dosing Weight: 100 kg (12/18/23) Medications Medications (24) Active Scheduled: (13) aspirin 81 mg EC 81 mg 1 tab(s), Oral, qDay enoxaparin 40 mg/ 0.4mL syringe 40 mg 0.4 mL, Subcutaneous, qDay insulin glargine 25 unit(s) 0.25 mL, Subcutaneous (INT), BID insulin lispro 100 units/mL Soln (3 mL) Give 0-10 units/dose, Subcutaneous, TIDAC loratadine 10 mg Tablet 10 mg 1 tab(s), Oral, qDay montelukast 10 mg Tablet 10 mg 1 tab(s), Oral, qDay multivitamin (Nephrocaps) Vitamin B Complex with C and Folic Acid Capsule 1 cap(s), Oral, qDay Nicoderm patch REMOVAL 1 EA, Miscellaneous, q24h nicotine 21 mg/24 hr ER patch 21 mg 1 patch(es), Transdermal, q24h rosuvastatin 20 mg tablet 40 mg 2 tab(s), Oral, qDay sertraline 50 mg tablet 50 mg 1 tab(s), Oral, qDay tamsulosin 0.4 mg Capsule 0.4 mg 1 cap(s), Oral, qHS traZODONE 100 mg Tablet 100 mg 1 tab(s), Oral, qHS Continuous: (1) NS (0.9% nacl) 1,000 mL 1,000 mL, Intravenous, 125 mL/hr PRN: (10) albuterol - ipratropium 2.5 mg-0.5 mg/3 mL Inhal Randee UD 3 mL, Inhalation, q4hRT dextrose 50% Solution Disp syringe 50 mL 12.5 gram(s) 25 mL, IV Push, AsDirected guaifenesin 100 mg/5 mL Liquid SUGAR-FREE 120 mL 200 mg 10 mL, Oral, q4h hydromorphone 1 mg/mL (1mL) INJ 1 mg 1 mL, IV Push, q4h ibuprofen 400 mg tablet 400 mg 1 tab(s), Oral, q6h melatonin 3 mg tablet 3 mg 1 tab(s), Oral, qHS ondansetron 2 mg/ 1 mL 2 mL INJ 4 mg 2 mL, IV Push, q4h oxycodone 5 mg tablet (immediate release) 5 mg 1 tab(s), Oral, q4h polyethylene glycol 3350 - UD packet 17 gram(s) 15 mL, Oral, qDay prochlorperazine 10 mg/2 mL vial 5 mg 1 mL, IV Push, q6h Lab Results 12/18 08:18 Glucose Level: 126 H Sodium Level: 140 Potassium Level: 4.0 BUN: 7.0 L Creatinine Lvl (s): 0.65 12/17 12:51 WBC: 7.1 Hgb: 14.3 Hct: 42.9 Platelet: 187 Neutrophil %: 66.2 Glucose Level: 139 H Sodium Level: 139 Potassium Level: 3.7 BUN: 9.0 Creatinine Lvl (s): 0.67 EKG No qualifying data available. Assessment/Plan 1. Acute on chronic pancreatitis 2. Recent hepatic abscesses status post drainage and completion of antibiotics 3. Type 2 diabetes mellitus 4. Past history of alcohol use 5. History of CVA 6. DVT prophylaxis Plan: This seems to me that this is an acute on chronic pancreatitis. Will start him on Creon, continue IV fluids. He was started on a regular diet, will switch him to full liquids for today. Analgesics as needed No strong indications for antibiotics at this time, awaiting GIs opinion He has a history of diabetes mellitus and takes metformin and insulin at home. He got contrast exposure yesterday for CT abdomen, will need to stop metformin. Continue him on insulin and monitor blood sugars. Add enoxaparin for DVT prophylaxis Digitally Signed by SONI OROSCO MD on 12/19/2023 12:29 PM [id number] Gastro[facility]ology Consult note Date of Service 12/19/2023 Reason for Consultation Abdominal pain Referring Physician Hospitalist History of Present Illness Patient is a 63-year-old male w/PMHx DM, HLD, TIA/CVA, osteoarthritis, spinal stenosis, chronic pancreatitis, pancreatic head mass, hepatic abscess, and alcohol and nicotine abuse whom we have been consulted for abdominal pain. Noted to have chronic pancreatitis since 2018. Started in [place] where he had unclear surgical intervention. Intermittent flareups since. Relocated to [place] around a year ago and had been going to [facility] and [facility] intermittently for ongoing abd pain. Patient evaluated by our services during an admission in October during which was found to have necrotic intrahepatic fluid collections concerning for abscess along with possibility of neoplasm/masslike prominence at the head of the pancreas. Significant atrophy to pancreatic body and tail noted. He had hepatic drainage tubes placed was subsequently transferred to [facility] for further treatment. Those records are currently unavailable. Presented to the ED on 12/03 due to concern for drainage tube dislodgment. IR evaluation the following day revealed evidence of resolution of the intrahepatic abscess collections and drainage tubes (3) were removed. Return to the ED on 12/17 with complaints of abdominal pain. CT A/P noted interval removal of 3 hepatic drains. Infiltrative hypodensity noted in the inferior right hepatic lobe measuring up to 6 cm. Noted to possibly appear smaller compared with MRI from 11/18. Could be residual phlegmon, perhaps maría elena roabscesses. Similar masslike prominence in the pancreatic head noted possibly representing focal pancreatitis versus pancreatic neoplasm. Stable mildly dilated CBD and intrahepatic biliary ducts possibly r/t calcification near the ampullary Deirdre vs above pancreatic head disease. Labs revealed normal lactate, CBC and lipase. CMP notable only for elevated glucose at 139. He has been afebrile. Vital signs stable. Given a dose of Zosyn in the ED. Patient examined resting in bed with his at the bedside. He reports while at [facility] he underwent biopsy of pancreatic lesion and reports it was noncancerous. He endorses ongoing abdominal pain since last admission with no real change in severity or frequency, even after drains were removed. Generalized in nature. Vague as to description. Dull with sharp increase at times. Worse after eating. Also complains of severe nausea. Intermittent nonbloody emesis, but usually just dry heaves. He denies fever, chills. Denies diarrhea or changes in bowel habits. No melena, hematochezia or acholic stools. Admits he previously used more than a pint of hard liquor daily but has not had alcohol since just prior to his admission in October. Review of Systems 10 point review of systems was completed. Pertinent positives/negatives are described above in the HPI and are otherwise negative. Physical Exam Vitals and Measurements T: 36.5 C (Oral) TMIN: 36.2 C (Oral) TMAX: 36.6 C (Oral) HR: 59 RR: 18 BP: 107/66 SpO2: 96% HT: 185.4 cm WT: 100 kg BMI: 29.09 Weight Dosing Weight: 100 kg (12/19/23) Dosing Weight: 100 kg (12/18/23) General Appearance: Lying in bed, in no acute distress. Appropriate mood and affect. Head: Head is normocephalic and atraumatic. EENT: Sclera are nonicteric. Neck is supple without adenopathy. Trachea is midline. Cardiac: Heart rate and rhythm are normal. S1 and S2 noted. Lungs: No signs of respiratory distress. Lungs are clear bilaterally. On room air. Abdomen: Abdomen is obese, soft, symmetric. BS X 4. No obvious masses or organomegaly appreciated. [place] exaggerated display of generalized pain with palpation. Decreased with distraction. Extremities: No edema noted. Pulses palpable. Neurological: The patient is awake, alert, and oriented to person, place, and time with normal speech. Skin: Skin is warm, dry. Appropriate color for ethnicity. Lab Results 12/18 08:18 Glucose Level: 126 H Sodium Level: 140 Potassium Level: 4.0 BUN: 7.0 L Creatinine Lvl (s): 0.65 12/17 12:51 WBC: 7.1 Hgb: 14.3 Hct: 42.9 Platelet: 187 Neutrophil %: 66.2 Glucose Level: 139 H Sodium Level: 139 Potassium Level: 3.7 BUN: 9.0 Creatinine Lvl (s): 0.67 Liver Function Test Total Protein: 6.1 G/dL (12/19/23 08:18:00) Total Protein: 7.1 G/dL (12/18/23 12:51:00) Albumin Level: 3.1 G/dL Low (12/19/23 08:18:00) Albumin Level: 3.7 G/dL (12/18/23 12:51:00) Bili Total: 0.3 mg/dL (12/19/23 08:18:00) Bili Total: 0.4 mg/dL (12/18/23 12:51:00) Alk Phos: 57 U/L (12/19/23 08:18:00) Alk Phos: 66 U/L (12/18/23 12:51:00) AST/SGOT: 20 U/L (12/19/23 08:18:00) AST/SGOT: 15 U/L (12/18/23 12:51:00) ALT/SGPT: 16 U/L (12/19/23 08:18:00) ALT/SGPT: 16 U/L (12/18/23 12:51:00) Imaging Results and Diagnostics CT Abd/Pelvis w/ IV Contrast Only Result Date: December 18, 2023 Verified By: ALYCIA HAWK MD CLINICAL STATEMENT: IMPRESSION: Interval removal of hepatic drainage catheters. There is infiltrativehypodensity noted within the inferior right hepatic lobe measuring up to 6cm. Difficult to compare to the prior study given the prior hepatic drainshowever appears smaller when compared to the prior MRI from 11/19/2023. Probably this represents residual phlegmon, perhaps with microabscesses. Ifclinically appropriate, repeat MRI could be considered. Reducing hyacinth hepatis adenopathy. Similar masslike prominence of the pancreatic head better evaluated on theprior MR. Again could represent focal pancreatitis versus pancreatic neoplasm. Stable mildly dilated common bile duct and intrahepatic biliary ducts. Couldbe related to calcification seen near the ampullary Vater versus abovepancreatic head disease. I have personally reviewed the images of this examination and agree with theresident's findings and interpretation. This document was transcribed utilizing voice recognition software and may contain typographical errors. Assessment/Plan Problem list: Abdominal pain Abnormal imaging > Masslike prominence focal pancreatitis vs pancreatic neoplasm > Stable biliary duct dilation > Infiltrative hypodensity right hepatic lobe (6 cm) Hx Chronic pancreatitis Pancreatic head lesion Hepatic lesion (abscess, s/p drain removal) Alcohol use Patient presents with what appears to be unchanged abdominal pain since last admission. No current alarm symptoms. He is afebrile. No leukocytosis. LFTs are WNL. Imaging appears improved from previous studies. Recommend supportive care, symptomatic management. Would limit narcotics due to their adverse GI side effects. Okay for clear liquids. Advance as tolerated. Will attempt to obtain records. Further orders/recommendations pending discussion with Dr. Mendez. Thank you for this consult. Procedure/Surgical History Pancreas operation Medications Inpatient aspirin 81 mg oral delayed release tablet, 81 mg= 1 tab(s), Oral, qDay Claritin, 10 mg= 1 tab(s), Oral, qDay Dextrose 50% IV Push, 12.5 gram(s)= 25 mL, IV Push, AsDirected, PRN Dilaudid, 1 mg= 1 mL, IV Push, q4h, PRN DuoNeb, 3 mL, Inhalation, q4hRT, PRN guaiFENesin, 200 mg= 10 mL, Oral, q4h, PRN HumaLOG 100 units/mL subcutaneous solution, Give 0-10 units/dose, Subcutaneous, TIDAC Lantus, 25 unit(s)= 0.25 mL, Subcutaneous (INT), BID Lovenox, 40 mg= 0.4 mL, Subcutaneous, qDay melatonin, 3 mg= 1 tab(s), Oral, qHS, PRN metFORMIN 500 mg oral tablet (IR), 1000 mg= 2 tab(s), Oral, BID Miralax Powder Packet, 17 gram(s)= 15 mL, Oral, qDay, PRN montelukast, 10 mg= 1 tab(s), Oral, qDay Motrin, 400 mg= 1 tab(s), Oral, q6h, PRN Multiple Vitamins oral capsule, 1 cap(s), Oral, qDay Nicoderm C-Q 21 mg/24 hr transdermal film, extended release, 21 mg= 1 patch(es), Transdermal, q24h nicotine (Nicoderm Patch REMOVAL), 1 EA, Miscellaneous, q24h Normal Saline 1,000 mL, 1000 mL, Intravenous oxyCODONE 5 mg oral tablet ( IMMEDIATE release ), 5 mg= 1 tab(s), Oral, q4h, PRN prochlorperazine, 5 mg= 1 mL, IV Push, q6h, PRN rosuvastatin, 40 mg= 2 tab(s), Oral, qDay sertraline, 50 mg= 1 tab(s), Oral, qDay tamsulosin, 0.4 mg= 1 cap(s), Oral, qHS traZODone, 100 mg= 1 tab(s), Oral, qHS Zofran, 4 mg= 2 mL, IV Push, q4h, PRN Home aspirin 81 mg oral delayed release tablet, 81 mg= 1 tab(s), Oral, qDay Claritin 10 mg oral tablet, 10 mg= 1 tab(s), Oral, qDay HumaLOG KwikPen 100 units/mL injectable PEN, sliding scale, Subcutaneous, TID Lantus 100 units/mL10 ml vial solution, 25 unit(s), Subcutaneous (INT), BID metFORMIN 1000 mg oral tablet (IR), 1000 mg= 1 tab(s), Oral, BID montelukast 10 mg oral tablet, 10 mg= 1 tab(s), Oral, qDay Multiple Vitamins oral capsule, 1 cap(s), Oral, qDay rosuvastatin 40 mg oral tablet, 40 mg= 1 tab(s), Oral, qDay semaglutide 2 mg/3 mL (0.25 mg or 0.5 mg dose) subcutaneous solution, 0.25 mg, Subcutaneous, qWeek sertraline 50 mg oral tablet, 50 mg= 1 tab(s), Oral, qDay tamsulosin 0.4 mg oral capsule, 0.4 mg= 1 cap(s), Oral, qDay traZODone 100 mg oral tablet, 100 mg= 1 tab(s), Oral, qHS Allergies acetaminophen rash erythromycin Social History Tobacco Nicotine Use: 10 or more cigarettes (1/2 pack or more)/day in last 30 days., 12/05/2023 Immunizations No qualifying data available. Digitally Signed by CELESTINA SEGOVIA on 12/19/2023 01:52 PM Digitally Signed by CELESTINA SEGOVIA on 12/19/2023 01:58 PM [facility] [id number] History and physical note [facility] Hospitalist History and Physical Date of Admission: patient is being admitted on December 19, 2023 Chief complaint: abdominal pain History of present illness: History is taken from talking with emergency room physician Dr. Arango as well as talking with the patient. Patient has a past medical history of pancreatitis, diabetes mellitus type II, anxiety/depression, hyperlipidemia, BPH, liver abscess, alcohol use, stroke. Readmission documentation. Readmission was discussed with the emergency room physician Dr. Arango. Patient was last discharged from here on November 22, 2023 and during that admission the patient presented with severe abdominal pain and was ultimately found to have concerning findings for pancreatic mass as well as liver abscesses. The patient ended up being transferred to [facility] where he states he had a pancreatic biopsy and the patient states it was noncancerous. Per the patient he was told by [facility] to follow-up with gastroenterology locally. He has completed his antibiotics for the liver abscesses. He did have drains placed which were recently taken out. He now ret urns with severe abdominal pain. Therefore he will need admitted for further evaluation. Patient states that his symptoms are similar to his recent admission. He denies fevers, chills or night sweats. He is having nausea but no vomiting. Denies diarrhea. Since presenting to the emergency room the patient has been afebrile, overall hemodynamically stable, 95% room air. The following labs and imaging were personally reviewed CBC within normal limits urinalysis not concerning for infection CMP within normal limits lipase within normal limits CT abdomen and pelvis with contrast was difficult to assess however radiology thinks that the 6 cm right hepatic lobe hyper density appear smaller compared to prior MRI. Similar mass like prominence of the pancreatic had. In the emergency room the patient was given multiple doses of fentanyl, Dilaudid, multiple doses Zofran, Zosyn, 1 L of IV fluids. Past medical history: DVT (deep venous thrombosis) Pancreatitis TIA (transient ischemic attack) Tobacco use Pancreas operation Family history: hypertension Social history: Denies smoking cigarettes or alcohol consumption Medications: Home Medications (12) Active aspirin 81 mg oral delayed release tablet 81 mg = 1 tab(s), Oral, qDay Claritin 10 mg oral tablet 10 mg = 1 tab(s), Oral, qDay HumaLOG KwikPen 100 units/mL injectable PEN sliding scale, Subcutaneous, TID Lantus 100 units/mL10 ml vial solution 25 unit(s), Subcutaneous (INT), BID metFORMIN 1000 mg oral tablet (IR) 1,000 mg = 1 tab(s), Oral, BID montelukast 10 mg oral tablet 10 mg = 1 tab(s), Oral, qDay Multiple Vitamins oral capsule 1 cap(s), Oral, qDay rosuvastatin 40 mg oral tablet 40 mg = 1 tab(s), Oral, qDay semaglutide 2 mg/3 mL (0.25 mg or 0.5 mg dose) subcutaneous solution 0.25 mg, Subcutaneous, qWeek sertraline 50 mg oral tablet 50 mg = 1 tab(s), Oral, qDay tamsulosin 0.4 mg oral capsule 0.4 mg = 1 cap(s), Oral, qDay traZODone 100 mg oral tablet 100 mg = 1 tab(s), Oral, qHS Allergies: acetaminophen (rash) erythromycin Review of systems: See HPI for pertinent positives and negatives. All other review of systems have been reviewed and they are negative. Vitals Signs(Last 24 hrs)__Last Charted Minimum Maximum Heart Rate72(DEC 17 22:52)61(DEC 17 22:30)90(DEC 17 19:00) OMV827(DEC 17 22:52)93(DEC 17 10:34)H 147(DEC 17 19:00) DBP73(DEC 17 22:52)62(DEC 17 19:00)79(DEC 17 18:15) Physical examination: HEENT: No Pallor, No Icterus Cardiac: RRR, No murmur Lungs: CTA, good air entry Abdomen: Soft, nondistended, tender to palpation in the epigastric area Musculoskeletal: No joint pains or swelling Extremities: No edema, good pulses Neurological: Alert, no deficits Skin: No rash, no nodules Labs: WBC: 7.1 10^3/mcL (12/18/23 12:51:00) RBC: 5 10^6/mcL (12/18/23 12:51:00) Hgb: 14.3 G/dL (12/18/23 12:51:00) Hct: 42.9 % (12/18/23 12:51:00) MCV: 85.7 fL (12/18/23 12:51:00) MCH: 28.5 pg (12/18/23 12:51:00) MCHC: 33.3 G/dL (12/18/23 12:51:00) RDW: 16.9 % High (12/18/23 12:51:00) Platelet: 187 10^3/mcL (12/18/23 12:51:00) MPV: 8.4 fL (12/18/23 12:51:00) Monocyte Distribution Width: 17.81 (12/18/23 12:51:00) Neutrophil %: 66.2 % (12/18/23 12:51:00) Lymphocyte %: 24.8 % (12/18/23 12:51:00) Monocyte %: 5.7 % (12/18/23 12:51:00) Eosinophil %: 2.9 % (12/18/23 12:51:00) Basophil %: 0.4 % (12/18/23 12:51:00) Neutrophil, Absolute: 4.7 10^3/mcL (12/18/23 12:51:00) Lymphocyte, Absolute: 1.8 10^3/mcL (12/18/23 12:51:00) Monocyte, Absolute: 0.4 10^3/mcL (12/18/23 12:51:00) Eosinophil, Absolute: 0.2 10^3/mcL (12/18/23 12:51:00) Basophil, Absolute: 0 10^3/mcL (12/18/23 12:51:00) UA Specimen Type: Clean Catch (12/18/23 12:46:00) UA Color: Yellow (12/18/23 12:46:00) UA Appear: Clear (12/18/23 12:46:00) UA Spec Grav: 1.015 (12/18/23 12:46:00) UA Glucose: Negative. (12/18/23 12:46:00) UA Bili: Negative. (12/18/23 12:46:00) UA Ketones: Negative.1 (12/18/23 12:46:00) UA Blood: Negative. (12/18/23 12:46:00) UA pH: 6.0 (12/18/23 12:46:00) UA Protein: Negative.1 (12/18/23 12:46:00) UA Urobilinogen: 0.2 (12/18/23 12:46:00) UA Nitrite: Negative. (12/18/23 12:46:00) UA Leuk Est: Negative. (12/18/23 12:46:00) Glucose Level: 139 mg/dL High (12/18/23 12:51:00) Sodium Level: 139 mEq/L (12/18/23 12:51:00) Potassium Level: 3.7 mEq/L (12/18/23 12:51:00) Chloride: 106 mEq/L (12/18/23 12:51:00) CO2: 28 mEq/L (12/18/23 12:51:00) Electrolyte Balance: 5 mEq/L (12/18/23 12:51:00) BUN: 9 mg/dL (12/18/23 12:51:00) Creatinine Lvl (s): 0.67 mg/dL (12/18/23 12:51:00) BUN/Creatinine Ratio: 13.4 ratio (12/18/23 12:51:00) Calcium Lvl: 9.6 mg/dL (12/18/23 12:51:00) Total Protein: 7.1 G/dL (12/18/23 12:51:00) Albumin Level: 3.7 G/dL (12/18/23 12:51:00) Globulin: 3.4 G/dL (12/18/23 12:51:00) A/G Ratio: 1.1 ratio (12/18/23 12:51:00) Bili Total: 0.4 mg/dL (12/18/23 12:51:00) Alk Phos: 66 U/L (12/18/23 12:51:00) AST/SGOT: 15 U/L (12/18/23 12:51:00) ALT/SGPT: 16 U/L (12/18/23 12:51:00) GFR Non-: >60 (12/18/23 12:51:00) GFR : >60 (12/18/23 12:51:00) Lipase Level: 25 U/L (12/18/23 12:51:00) Urinalysis UA Specimen Type: Clean Catch (12/18/23 12:46:00) UA Color: Yellow (12/18/23 12:46:00) UA Appear: Clear (12/18/23 12:46:00) UA Spec Grav: 1.015 (12/18/23 12:46:00) UA Glucose: Negative. (12/18/23 12:46:00) UA Bili: Negative. (12/18/23 12:46:00) UA Ketones: Negative.1 (12/18/23 12:46:00) UA Blood: Negative. (12/18/23 12:46:00) UA pH: 6.0 (12/18/23 12:46:00) UA Protein: Negative.1 (12/18/23 12:46:00) UA Urobilinogen: 0.2 (12/18/23 12:46:00) UA Nitrite: Negative. (12/18/23 12:46:00) UA Leuk Est: Negative. (12/18/23 12:46:00) Assessment and plan: Patient presents on December 19, 2023 with abdominal pain and nausea similar to his recent admission. Abdominal pain and nausea with recent evaluation for pancreatic mass and hepatic abscesses. Will consult gastroenterology for evaluation. Pancreatic mass. Per the patient they did do a biopsy at [facility] which he states was noncancerous. Will consult gastroenterology. Hepatic abscesses status post drain removal on December 05, 2023. Has completed antibiotics. Will get blood cultures. Will hold off on continuing antibiotics. Will consult gastroenterology. Diabetes mellitus type II. Continue home medications Anxiety/depression. Continue medications Hyperlipidemia. Continue statin BPH. Continue home medications Stroke. Continue home medications Prophylaxis Lovenox Code status full code Digitally Signed by YOLANDA BYRD MD on 12/19/2023 12:25 AM [facility] [id number] Note ORIGINAL EXAMINATION: CT OF THE ABDOMEN AND PELVIS WITH CONTRAST 12/18/2023 8:26 pm TECHNIQUE: CT of the abdomen and pelvis was performed with the administration of intravenous contrast. Multiplanar reformatted images are provided for review. Automated exposure control, iterative reconstruction, and/or weight based adjustment of the mA/kV was utilized to reduce the radiation dose to as low as reasonably achievable. COMPARISON: CT abdomen pelvis 12/04/2023 and MRI abdomen 11/19/2023. HISTORY: ORDERING SYSTEM PROVIDED HISTORY: Reason for Exam: ABD PAIN, N/V, PT STATES RECENT DIAGNOSES OF LIVER ABSCESS abdominal pain FINDINGS: The heart is normal in size. No pericardial thickening or effusion. Bibasilar atelectasis. No acute abnormality within the visualized lower lungs. The aorta is nonaneurysmal with mild atherosclerosis. There is enlarged hyacinth hepatis lymph node measuring 1.6 cm (series 2, image 45), improved from the prior where it measured approximately 2.1 cm. Interval removal of the 3 hepatic drains. There remains ill-defined hypodensity within inferior right hepatic lobe adjacent to the gallbladder fossa. This region measures approximately 5.6 x 6.0 x 4.9 cm (AP x TR x CC) (series 2, image 44 and coronal image 48), difficult to compare with the prior CT although appears much smaller compared to the most recent MR from 11/19/2023. No new area of disease is seen within the liver. The spleen is upper limit of normal at 13.1 cm. The gallbladder and bilateral adrenal glands are unremarkable. The common bile duct is stable in size measuring up to 0.9 cm. Stable mild intrahepatic biliary ductal dilation. Stable masslike consolidation at the pancreatic head with apparent atrophy of the remaining pancreas. Stable 0.9 cm calcification near the ampulla of Vater. Symmetric nephrograms. No hydronephrosis or renal calculi. Stable subcentimeter hypodensity within the right midpole too small to characterize but most likely represents simple cyst. Stable bilateral minimal perinephric stranding. The bladder is partially decompressed but otherwise unremarkable. The prostate is normal in size. No pneumoperitoneum or free fluid. The large and small bowel are normal in caliber. The appendix is unremarkable. No inflammatory changes of the GI tract. No acute osseous abnormality. Chronic posterior left 8 and 9th rib deformities. Soft tissue changes related to prior hepatic drains. IMPRESSION: Interval removal of hepatic drainage catheters. There is infiltrative hypodensity noted within the inferior right hepatic lobe measuring up to 6 cm. Difficult to compare to the prior study given the prior hepatic drains however appears smaller when compared to the prior MRI from 11/19/2023. Probably this represents residual phlegmon, perhaps with microabscesses. If clinically appropriate, repeat MRI could be considered. Reducing hyacinth hepatis adenopathy. Similar masslike prominence of the pancreatic head better evaluated on the prior MR. Again could represent focal pancreatitis versus pancreatic neoplasm. Stable mildly dilated common bile duct and intrahepatic biliary ducts. Could be related to calcification seen near the ampullary Vater versus above pancreatic head disease. I have personally reviewed the images of this examination and agree with the resident's findings and interpretation. Interpreted by: Alycia Hawk Preliminary Report By: Charles Zuluaga Electronically signed By Alycia Hawk Dictated Date: 12/18/2023 8:28:11 PM Prelim Date: 12/18/2023 8:46:38 PM Sign Date: 12/18/2023 8:59:21 PM Ordering Provider: [facility]06-12-2024 NoteORIGINAL PROCEDURE: Fluoroscopic drainage catheter evaluation (Abscessogram) performed on 12/05/2023. INDICATION: Hepatic abscess drain evaluation. COMPARISON: CT Abdomen dated 12/04/2023. TECHNIQUE/FINDINGS: The procedure was performed in the VIR Suite with the patient in the supine position. A entry level mechanical engineer image demonstrated position of the existing percutaneous catheters. Using sterile technique, the existing 14-F locking pigtail catheter was gently injected with contrast using fluoroscopic guidance. The catheter was almost completely clogged. There is essentially no residual abscess cavity. No evidence of fistula. The catheter was exchanged over a guidewire for a 5 -F catheter. Injection through the 5-F catheter demonstrated no evidence of vascular injury and no sizable residual hepatic collection. No biliary fistula. The 2 remaining hepatic drains were both completely clogged and could not be removed over guidewire. The catheters were removed. The 5-F catheter was advanced through the prior catheter tracts. Injection of contrast demonstrated no residual abscess cavity or fistula. There was no evidence of vascular injury. Each skin entry site was cleaned and dressed in the usual fashion. There were no immediate complications. Total Fluoroscopy Time: 2.5 minutes. Reference Air Kerma (ZEINAB): 360.73 mGy. Intra-Service Time (Moderate Sedation): 15 minutes. Patient Monitoring: I personally supervised and directed an independent trained observer who assisted in monitoring the patient's level of consciousness and physiological status throughout the procedure. IMPRESSION: 1. Resolution of the intrahepatic abscess collections without evidence of vascular injury or fistula. 2. Percutaneous intrahepatic drainage catheters (3) have been removed. Interpreted by: Chuckie Voss MD Preliminary Report By: Chuckie Voss MD Electronically signed By Chuckie Voss MD Dictated Date: 12/06/2023 8:54:02 AM Prelim Date: 12/06/2023 9:03:58 AM Sign Date: 12/06/2023 9:03:58 AM Ordering Provider: [facility] ([place])12-05-2023 Hospital Discharge instructions Patient Education 12/05/2023 15:41:13 Radiology- Catherter Removal 10/09/2019(CUSTOM) [place] Catheter Removal Discharge Instructions Interventional Radiology [facility] Services [address] [place] [address] DIET: Resume your regular diet as tolerated. ACTIVITY: Rest for the remainder of the day. You may resume your normal activity tomorrow. You may bathe, but wait 24 hours until the dressing is removed to shower. Do not soak or submerge site until a scab forms. No swimming or hot tubs. No heavy lifting, pushing, or straining. DRESSING: Check the site for bleeding. Apply pressure to the site if bleeding excessively and call your physician. The dressing can be removed after 24 hours. PAIN CONTROL: The removal site may be sore for 1 to 2 days following the procedure. Sijr-lcn-vglopsq pain medication should be used for pain or discomfort. Please check with the physician who ordered this procedure for you for their specific recommendations. If your pain is not relieved or becomes more severe, notify the physician who sent you for this procedure. MEDICATION: Please resume medications as scheduled. WHEN TO SEEK MEDICAL CARE: You should contact your physician or visit your local emergency room promptly if any of the following occur: Lightheadedness, dizziness, or fainting Infection Rarely, infection at the site where the catheter was removed may occur. Signs and symptoms include a fever greater than 101 degrees, chills, redness, warmth, swelling, increased pain, bleeding or pusfrom the puncture site. If you experience any of these issues during the first 24 hours, please follow the instruction below: 8:00 am- 5:00 pm call [phone] After 5:00 pm call [phone] After 24 hours, contact the physician who ordered this procedure for you. 12/05/2023 15:39:14 Moderate Conscious Sedation, Adult, Care After Moderate Conscious Sedation, Adult, Care After These instructions provide you with information about caring for yourself after your procedure. Your health care provider may also give you more specific instructions. Your treatment has been plannedaccording to current medical practices, but problems sometimes occur. Call your health care provider if you have any problems or questions after your procedure. What can I expect after the procedure? After your procedure, it is common: To feel sleepy for several hours. To feel clumsy and have poor balance for several hours. To have poor judgment for several hours. To vomit if you eat too soon. Follow these instructions at home: For at least 24 hours after the procedure: Do not: ?Participate in activities where you could fall or become injured. ?Drive. ?Use heavy machinery. ?Drink alcohol. ?Take sleeping pills or medicines that cause drowsiness. ?Make important decisions or sign legal documents. ?Take care of children on your own. Rest. Eating and drinking Follow the diet recommended by your health care provider. If you vomit: ?Drink water, juice, or soup when you can drink without vomiting. ?Make sure you have little or no nausea before eating solid foods. General instructions Have a responsible adult stay with you until you are awake and alert. Take mjrg-ika-zhsifjj and prescription medicines only as told by your health care provider. If you smoke, do not smoke without supervision. Keep all follow-up visits as told by your health care provider. This is important. Contact a health care provider if: You keep feeling nauseous or you keep vomiting. You feel light-headed. You develop a rash. You have a fever. Get help right away if: You have trouble breathing. This information is not intended to replace advice given to you by your health care provider. Make sure you discuss any questions you have with your health care provider. Document Released: 04/02/2014 Document Revised: 05/25/2018 Document Reviewed: 10/01/2016 [employer] Patient Education 2020 [employer] Follow Up Care 11/30/2023 08:45:09 With:MAGO ELLIOTT MD Address: [address] [place] [phone] When: Unknown Comments:Follow-up as needed Follow-up as scheduled With:Go to emergency room if symptoms worsen Address:Unknown When: Unknown [facility] 06-11-2024 Note* Yunior Alaniz RN: SIGN, AUTHOR, PERFORM Event Display: IR Procedure Record Authored Date: [id number] IR Procedure Record Summary Primary Physician: CHUCKIE VOSS MD Finalized Date/Time: 12/05/23 15:14:54 Pt. Name: KYLE MCDANIEL Luis Warner./Sex: 1960 Male Med Rec #: [id number] Physician: Financial #: [id number] Pt. Type: O Room/Bed: / Admit/Disch: 12/05/23 12:55:48 - Institution: Allergies identified in patient's electronic medical record at time of printing on 12/05/23 Entry 1 Entry 2 Substance acetaminophen erythromycin Reaction Type Allergy Allergy Last Modified By: Verito Ballard RN, Erin L RN 12/04/23 08:52:59 11/12/23 11:34:42 Case Attendance- IR Entry 1 Entry 2 Entry 3 Case Attendee CHUCKIE VOSS MD, Aaron RN Justice, Colten G Role Performed Primary Surgeon Procedure Nurse Scrub Technologist Details Time In 12/05/23 14:38:00 12/05/23 14:38:00 12/05/23 14:38:00 Time Out 12/05/23 15:22:00 12/05/23 15:22:00 12/05/23 15:22:00 Procedure/Preference IR Drainage Cath IR Drainage Cath IR Drainage Cath Card Injection for Eval SN Injection for Eval SN Injection for Eval SN Last Modified By: Yunior Alaniz RN, Aaron RN Beans, Aaron RN 12/05/23 15:13:16 12/05/23 15:13:16 12/05/23 15:13:16 Entry 4 Case Attendee Angelic Dia Cover Maker Role Performed Circulating Technologist Details Time In 12/05/23 14:38:00 Time Out 12/05/23 15:22:00 Procedure/Preference IR Drainage Cath Card Injection for Eval SN Last Modified By: Yunior Alaniz RN 12/05/23 15:13:16 Radiology Procedures- IR Entry 1 Procedure/Preference IR Drainage Cath Actual Procedure IR DRAINAGE CATH Card Injection for Eval SN INJECTION FOR EVAL Primary Procedure Yes Primary Surgeon CHUCKIE VOSS MD Anesthesia/Sedation IV Sedation, Local Type Additional Procedure Times Start 12/05/23 14:58:00 Stop 12/05/23 15:11:00 Specialty Service SN Radiology Procedure EBL 1 mL Last Modified By: Yunior Alaniz RN 12/05/23 15:13:24 Radiology Procedure Details - IR Entry 1 Radiology Sedation Case Times Sedation Start Time 12/05/23 14:59:00 Sedation Stop Time 12/05/23 15:11:00 Sedation Total Time 12 minutes Radiology - Fluid/Drainage Radiology Contrast Contrast Used? Yes Dose 45 mL Medication CONTRAST ISOVUE 300 100ML 10/BX 1315-35 Radiology Flouroscopy Fluoroscopy Used? Yes Fluoro Dose (mGy) 360.7 Fluoro Time 2.5 minutes Radiology Local Local Used? No Radiology Procedure Site Site/Location Right abdomen/ flank Site Condition No complications Dressing Type Bioclusive 4 X 5, Gauze Technologist Notes drains removed x3 sponge 4 X 4 Last Modified By: Yunior Alaniz RN 12/05/23 15:14:30 General Case Data - IR Entry 1 Case Information Room IR 17 Case Level IR Level 1 Wound Class None Specialty SN Radiology Procedure ASA Class None Diagnosis Preop Diagnosis hepatic abscess drains Postop Same As Preop Yes x2 evaluation Postop Diagnosis hepatic abscess drains x2 evaluation Last Modified By: Yunior Alaniz RN 12/05/23 14:46:54 Medication Administration- IR Entry 1 Entry 2 Entry 3 Medication fentanyl versed versed Time Administered 12/05/23 14:59:00 12/05/23 14:59:00 12/05/23 15:02:00 Route of Admin IV Push IV Push IV Push Dose 50mcg 1mg 1mg Volume VORB * *Verbal Order Read Back (VORB) is required for NON- PHYSICIAN administration of medications. Administered by No No No Physician? Administered by: Yunior Alaniz RN, Aaron RN Beans, Aaron RN Verbal Order Read CHUCKIE VOSS MD, JAMES MD BUCHINO, JAMES MD Back from: Last Modified By: Yunior Alaniz RN, Aaron RN Beans, Aaron RN 12/05/23 15:04:35 12/05/23 15:04:35 12/05/23 15:04:35 Entry 4 Medication fentanyl Time Administered 12/05/23 15:02:00 Route of Admin IV Push Dose 50mcg Volume VORB * *Verbal Order Read Back (VORB) is required for NON- PHYSICIAN administration of medications. Administered by No Physician? Administered by: Yunior Alaniz RN Verbal Order Read CHUCKIE VOSS MD Back from: Last Modified By: Yunior Alaniz RN 12/05/23 15:04:35 Procedure Case Times- IR Entry 1 Patient In Procedure Patient In OR 12/05/23 14:38:00 Patient Out of OR 12/05/23 15:22:00 Procedure Start/Stop Procedure Start Time 12/05/23 14:58:00 Procedure Stop Time 12/05/23 15:11:00 Last Modified By: Yunior Alaniz RN 12/05/23 15:13:15 Immediate Post Procedure Note - IR Entry 1 Immediate Post Yes Procedure Note displayed for Physician to review Closure Technique Closure Technique Other than Primary Last Modified By: Yunior Alaniz RN 12/05/23 14:46:22 Immediate Post Procedure Note - IR Signed By: CHUCKIE VOSS MD 12/05/23 15:12 Allergy Information- IR Entry 1 Allergies Reviewed? Yes Allergies Reviewed Patient With Last Modified By: Yunior Alaniz RN 12/05/23 14:44:27 Radiology Protocols/Time Out- IR Entry 1 Preprocedure Clinician Verifies Correct patient ID When Clinically Confirmation of correct using name & date Indicated side(s) and site(s), or MRN, Accurate Correct diagnostic and procedure, complete radiology tests Informed Consent, H & P available, Required update immediately blood products, prior to procedure, if implants, devices applicable and/or special equipment available OR/Procedure Room/Bedside Time 12/05/23 14:58:00 Clinician Verifies Correct patient identity including EMR & records using name and date or medical record number, Accurate procedure consent form, Correct patient position, Necessary equipment is available, Anticipated non-routine events with surgical team (case duration, estimated blood loss, patient specific concerns)., [place] patient factors for recovery and management identified with surgical team. When Applicable Confirmation correct Team Members CHUCKIE VOSS MD, side and site marked, Present for Time Out Yunior Alaniz RN, Relevant images and Javan Harrell, results are properly FierstosAngelic R Rad labeled and Tech appropriately displayed, Alcohol based prep dry Instrument Sterility Procedure IR Drainage Cath Injection for Eval SN Last Modified By: Yuniro Alaniz RN 12/05/23 15:12:28 Skin Prep- IR Entry 1 Procedure IR Drainage Cath Injection for Eval SN Skin Prep Prep Area Abdomen, Flank Side Right, Lateral By Javan Harrell Prep Agents Chloraprep, Betadine Scrub Hair Removal Method N/A Last Modified By: Yunior Alaniz RN 12/05/23 14:46:11 Patient Positioning- IR Entry 1 Procedure IR Drainage Cath Body Position OP Supine Injection for Eval SN Feet Uncrossed? Yes Pressure Points Yes Checked Last Modified By: Yunior Alaniz RN 12/05/23 14:46:19 Radiology Procedure Plan - IR Entry 1 Radiology - Nursing Care Plan Outcome Statement The patient Outcome Statement The patient receives demonstrates knowledge Cont. appropriate of the expected medication(s), safely responses to the administered during the operative/invasive perioperative/invasive procedure., The period., The patient is patient's value system, free from signs and lifestyle, ethnicity, symptoms of injury and culture are caused by extraneous considered, respected, objects (equipment, and incorporated in the instrumentation, perioperative plan of sponges, or sharps). care., The patient is free from signs and symptoms of infection., The patient is free from signs and symptoms of injury related to positioning. Radiology - Action Plan Outcomes Met? Yes Head Of Art Yunior Alaniz RN Completing Procedure Plan Last Modified By: Yunior Alaniz RN 12/05/23 14:46:31 Case Comments <None> Finalized By: Yunior Alaniz RN Document Signatures Signed By: Yunior Alaniz RN 12/05/23 15:14 [facility] 06-11-2024 Summary of episode note Discharge Instructions Thank you for allowing [facility] to assist you with your healthcare needs. The following is importantdischarge information regarding your hospital visit. Your Care Team MAGO ELLIOTT MD What to do next Follow Up Appointments Follow Up with MAGO ELLIOTT MD Where:[address] [facility] [address] [place] [address] [phone] Additional Information: Follow-up as needed Follow-up as scheduled Follow Up with Go to emergency room if symptoms worsen Allergies acetaminophen rash erythromycin Medications Please ask your primary doctor or pharmacist before taking any other medication not listed, including over the counter drugs, herbal medications, vitamins and or supplements as they may interact withyour home medications. What How Much When Instructions Last Dose Unchanged amoxicillin-clavulanate (amoxicillin-clavulanate 875 mg-125 mg oral tablet) 1 tab(s) by mouth Every 12 hours Duration: 10 Days Unchanged aspirin (aspirin 81 mg oral delayed release tablet) 1 tab(s) by mouth Once a day Unchanged ciprofloxacin (ciprofloxacin 500 mg oral tablet) TAKE 1 TABLET BY MOUTH TWICE DAILY Unchanged insulin glargine (Lantus 100 units/ mL10 ml vial solution) 25 unit(s) Subcutaneous (INT) Two (2) times a day Unchanged levocetirizine (Xyzal 5 mg oral tablet) 1 tab(s) by mouth Once a day Unchanged metFORMIN (metFORMIN 1000 mg oral tablet (IR)) 1 tab(s) by mouth Two (2) times a day Unchanged montelukast (montelukast 10 mg oral tablet) 1 tab(s) by mouth Once a day Unchanged rosuvastatin (rosuvastatin 40 mg oral tablet) 1 tab(s) by mouth Once a day Unchanged semaglutide (semaglutide 2 mg/ 3 mL (0.25 mg or 0.5 mg dose) subcutaneous solution) 0.25 Milligram Subcutaneous Every week rotate injection sites Unchanged sertraline (sertraline 50 mg oral tablet) 1 tab(s) by mouth Once a day Unchanged tamsulosin (tamsulosin 0.4 mg oral capsule) TAKE 1 CAPSULE BY MOUTH ONCE DAILY Unchanged traZODone (traZODone 100 mg oral tablet) 1 tab(s) by mouth Daily at bedtime Please take this list to your next doctor s visit. Bring all medications you take, including over the counter medications, herbals and other supplements with you to your doctor s visit. Patients and families are reminded to discard old lists and to update any records with all medication providers or retail pharmacies. Education Materials [place] Catheter Removal Discharge Instructions Interventional Radiology [facility] [address] [place] [address] DIET: Resume your regular diet as tolerated. ACTIVITY: Rest for the remainder of the day. You may resume your normal activity tomorrow. You may bathe, but wait 24 hours until the dressing is removed to shower. Do not soak or submerge site until a scab forms. No swimming or hot tubs. No heavy lifting, pushing, or straining. DRESSING: Check the site for bleeding. Apply pressure to the site if bleeding excessively and call your physician. The dressing can be removed after 24 hours. PAIN CONTROL: The removal site may be sore for 1 to 2 days following the procedure. Udgd-pde-sqbfzbw pain medication should be used for pain or discomfort. Please check with the physician who ordered this procedure for you for their specific recommendations. If your pain is not relieved or becomes more severe, notify the physician who sent you for this procedure. MEDICATION: Please resume medications as scheduled. WHEN TO SEEK MEDICAL CARE: You should contact your physician or visit your local emergency room promptly if any of the following occur: Lightheadedness, dizziness, or fainting Infection Rarely, infection at the site where the catheter was removed may occur. Signs and symptoms include a fever greater than 101 degrees, chills, redness, warmth, swelling, increased pain, bleeding or pusfrom the puncture site. If you experience any of these issues during the first 24 hours, please follow the instruction below: 8:00 am- 5:00 pm call [phone] After 5:00 pm call [phone] After 24 hours, contact the physician who ordered this procedure for you. Moderate Conscious Sedation, Adult, Care After These instructions provide you with information about caring for yourself after your procedure. Your health care provider may also give you more specific instructions. Your treatment has been plannedaccording to current medical practices, but problems sometimes occur. Call your health care provider if you have any problems or questions after your procedure. What can I expect after the procedure? After your procedure, it is common: To feel sleepy for several hours. To feel clumsy and have poor balance for several hours. To have poor judgment for several hours. To vomit if you eat too soon. Follow these instructions at home: For at least 24 hours after the procedure: Do not: ? Participate in activities where you could fall or become injured. ? Drive. ? Use heavy machinery. ? Drink alcohol. ? Take sleeping pills or medicines that cause drowsiness. ? Make important decisions or sign legal documents. ? Take care of children on your own. Rest. Eating and drinking Follow the diet recommended by your health care provider. If you vomit: ? Drink water, juice, or soup when you can drink without vomiting. ? Make sure you have little or no nausea before eating solid foods. General instructions Have a responsible adult stay with you until you are awake and alert. Take xqtk-lze-nzslacu and prescription medicines only as told by your health care provider. If you smoke, do not smoke without supervision. Keep all follow-up visits as told by your health care provider. This is important. Contact a health care provider if: You keep feeling nauseous or you keep vomiting. You feel light-headed. You develop a rash. You have a fever. Get help right away if: You have trouble breathing. This information is not intended to replace advice given to you by your health care provider. Make sure you discuss any questions you have with your health care provider. Document Released: 04/02/2014 Document Revised: 05/25/2018 Document Reviewed: 10/01/2016 [employer] Patient Education 2020 [employer] We Age. Additional Information VACCINATE! IT SAVES LIVES! Members of the community who have not yet received the COVID-19 vaccine and would like to receive it can visit one of [facility] vaccine clinics. There are many vaccine clinic locations within the [facility]. For locations and available times, please visit [email or web address].[place].gov/. It is important to note that some COVID mobile vaccine clinics are held outdoors and may be canceled in rainy or stormy conditions. To learn more about pediatric vaccinations (ages 5-11), we invite you to visit the [facility] webpage. [email or web address]/[email or web address] [email or web address].htmlTo learn more about the COVID-19 vaccine, we invite you to visit the CDC website for a list of frequently asked questions.https://www.cdc.gov/coronavirus/2019-ncov/vaccines/faq.html [employer] Patient Portal Access Instructions: Stay connected with your healthcare team and access your personal medical information anytime with the [employer] Patient Portal. Please follow the directions below to create your [employer] account: 1.Access the email account you provided upon registration to the hospital/physician office.2.Look for an invitation email from [facility].3.Open the email and access the invitation link: AcceptInvitation to [facility] [employer].4.Fill in the required middleton to create your account. To access your account, visit [email or web address]. Click the blue button labeled "Access Patient Portal" and then log in with the username and password that you created in the steps above. You will be able to view your test results, lab results, a summary of your visits, upcoming appointments and more. There is also a convenient messaging option where you can send secure messages to your p rovider. In addition, you will have the ability to download any documents or summaries to your computer and/or send the information securely to a physician. Remember that your healthcare information is confidential, so carefully consider who you will allowto register on the [facility] [employer] Patient Portal for access to your information. You can also access the [facility] on the [facility] [employer]. Simply click on "Patient Portal" and then log into your account. If you would like to receive a full copy of your medical records, please contact the [facility] Medical Records Department by calling [phone], Monday through Monday between 8 a.m. and 4:30 p.m. HOW TO SAFELY DISPOSE OF PRESCRIPTION MEDICATIONS Please use one of the following methods to safely dispose of your unused medications. 1.Use a drug disposal kit: the drug disposal pouch allows you to safely discard your old and unuseddrugs. Ask your nurse to give you one when you are discharged.2.Visit a local take-back location: Many local pharmacies and police departments have programs that collect old and unwanted prescriptiondrugs. Call your local pharmacy or go to http://bit.ly/7V6Sw8l to find one close to you.3.Make use of household items: Use cat litter or old coffee grounds to dispose medications if other options arenot available. Mix your drugs with these household products, seal them in an airtight container andthrow it into the garbage. Call [facility]: [phone] to be sure your drugs can be disposed of in this way. Some medicines may require a different approach.4.Never flush your medications down the toilet. IF YOU HAVE BEEN PRESCRIBED AN OPIOID FOR PAIN If you have been prescribed an opioid (such as hydrocodone, oxycodone or morphine), it is critical to understand the possible side effects and risks of opioid pain medications. Even when taken as directed, opioids can have several side effects including: Tolerance, meaning you might need to take more of a medication for the same pain relief. Nausea, vomiting and/or constipation. Sleepiness, dizziness, dry mouth, confusion, depression or itching. Physical dependence, meaning you have withdrawal symptoms when a medication is stopped, can develop within a few days. KNOW YOUR RESPONSIBILITIES It is important to know exactly how much and how often to take the opioid pain medications you are prescribed. Never take opioids in higher amounts or more often than prescribed. Do not combine opioids with alcohol or other drugs that cause drowsiness, such as benzodiazepines, also known as benzos, including diazepam and alprazolam, muscle relaxants or sleep aids. Never sell or share prescription opioids. This is illegal. Store opioids in a secure place and out of reach of others (including children, family, friends and visitors). The last page of this document has been signed and retained as a CHART COPY. Signatures Patient Education Materials Radiology- Catherter Removal 10/09/2019(CUSTOM) Moderate Conscious Sedation, Adult, Care After Medication Leaflets My discharge plan and instructions have been reviewed and explained to me and IJONAS WAYNE E understand my current condition and have read and understand these discharge instructions. I have received a written copy of the plan/instructions. If I have questions, I am aware that I should contact my doctor. 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 Name: KYLE MCDANIEL /Sex: 1960 Male Med Rec #: [id number] Physician: Financial #: [id number] Pt. Type: O Room/Bed: / Admit/Disch: 12/05/23 12:55:48 - Institution: Allergies identified in patient's electronic medical record at time of printing on 12/05/23 Entry 1 Entry 2 Substance acetaminophen erythromycin Reaction Type Allergy Allergy Last Modified By: Verito Ballard RN, Erin L RN 12/04/23 08:52:59 11/12/23 11:34:42 Case Attendance- IR Entry 1 Entry 2 Entry 3 Case Attendee CHUCKIE VOSS MD, Aaron RN Justice, Colten G Role Performed Primary Surgeon Procedure Nurse Scrub Technologist Details Time In 12/05/23 14:38:00 12/05/23 14:38:00 12/05/23 14:38:00 Time Out 12/05/23 15:22:00 12/05/23 15:22:00 12/05/23 15:22:00 Procedure/Preference IR Drainage Cath IR Drainage Cath IR Drainage Cath Card Injection for Eval SN Injection for Eval SN Injection for Eval SN Last Modified By: Yunior Alaniz RN, Aaron RN Beans, Aaron RN 12/05/23 15:13:16 12/05/23 15:13:16 12/05/23 15:13:16 Entry 4 Case Attendee Angelic Dia Cover Maker Role Performed Circulating Technologist Details Time In 12/05/23 14:38:00 Time Out 12/05/23 15:22:00 Procedure/Preference IR Drainage Cath Card Injection for Eval SN Last Modified By: Yunior Alaniz RN 12/05/23 15:13:16 Radiology Procedures- IR Entry 1 Procedure/Preference IR Drainage Cath Actual Procedure IR DRAINAGE CATH Card Injection for Eval SN INJECTION FOR EVAL Primary Procedure Yes Primary Surgeon CHUCKIE VOSS MD Anesthesia/Sedation IV Sedation, Local Type Additional Procedure Times Start 12/05/23 14:58:00 Stop 12/05/23 15:11:00 Specialty Service SN Radiology Procedure EBL 1 mL Last Modified By: Yunior Alaniz RN 12/05/23 15:13:24 Radiology Procedure Details - IR Entry 1 Radiology Sedation Case Times Sedation Start Time 12/05/23 14:59:00 Sedation Stop Time 12/05/23 15:11:00 Sedation Total Time 12 minutes Radiology - Fluid/Drainage Radiology Contrast Contrast Used? Yes Dose 45 mL Medication CONTRAST ISOVUE 300 100ML 10/BX 1315-35 Radiology Flouroscopy Fluoroscopy Used? Yes Fluoro Dose (mGy) 360.7 Fluoro Time 2.5 minutes Radiology Local Local Used? No Radiology Procedure Site Site/Location Right abdomen/ flank Site Condition No complications Dressing Type Bioclusive 4 X 5, Gauze Technologist Notes drains removed x3 sponge 4 X 4 Last Modified By: Yunior Alaniz RN 12/05/23 15:14:30 General Case Data - IR Entry 1 Case Information Room IR 17 Case Level IR Level 1 Wound Class None Specialty SN Radiology Procedure ASA Class None Diagnosis Preop Diagnosis hepatic abscess drains Postop Same As Preop Yes x2 evaluation Postop Diagnosis hepatic abscess drains x2 evaluation Last Modified By: Yunior Alaniz RN 12/05/23 14:46:54 Medication Administration- IR Entry 1 Entry 2 Entry 3 Medication fentanyl versed versed Time Administered 12/05/23 14:59:00 12/05/23 14:59:00 12/05/23 15:02:00 Route of Admin IV Push IV Push IV Push Dose 50mcg 1mg 1mg Volume VORB * *Verbal Order Read Back (VORB) is required for NON- PHYSICIAN administration of medications. Administered by No No No Physician? Administered by: Yunior Alaniz RN Yunior Alaniz RN Yunior Alaniz RN Verbal Order Read CHUCKIE VOSS MD, JAMES MD BUCHINO, JAMES MD Back from: Last Modified By: Yunior Alaniz RN, Aaron RN Beans, Aaron RN 12/05/23 15:04:35 12/05/23 15:04:35 12/05/23 15:04:35 Entry 4 Medication fentanyl Time Administered 12/05/23 15:02:00 Route of Admin IV Push Dose 50mcg Volume VORB * *Verbal Order Read Back (VORB) is required for NON- PHYSICIAN administration of medications. Administered by No Physician? Administered by: Yunior Alaniz RN Verbal Order Read CHUCKIE VOSS MD Back from: Last Modified By: Yunior Alaniz RN 12/05/23 15:04:35 Procedure Case Times- IR Entry 1 Patient In Procedure Patient In OR 12/05/23 14:38:00 Patient Out of OR 12/05/23 15:22:00 Procedure Start/Stop Procedure Start Time 12/05/23 14:58:00 Procedure Stop Time 12/05/23 15:11:00 Last Modified By: Yunior Alaniz RN 12/05/23 15:13:15 Immediate Post Procedure Note - IR Entry 1 Immediate Post Yes Procedure Note displayed for Physician to review Closure Technique Closure Technique Other than Primary Last Modified By: Yunior Alaniz RN 12/05/23 14:46:22 Immediate Post Procedure Note - IR Signed By: CHUCKIE VOSS MD 12/05/23 15:12 Allergy Information- IR Entry 1 Allergies Reviewed? Yes Allergies Reviewed Patient With Last Modified By: Yunior Alaniz RN 12/05/23 14:44:27 Radiology Protocols/Time Out- IR Entry 1 Preprocedure Clinician Verifies Correct patient ID When Clinically Confirmation of correct using name & date Indicated side(s) and site(s), or MRN, Accurate Correct diagnostic and procedure, complete radiology tests Informed Consent, H & P available, Required update immediately blood products, prior to procedure, if implants, devices applicable and/or special equipment available OR/Procedure Room/Bedside Time 12/05/23 14:58:00 Clinician Verifies Correct patient identity including EMR & records using name and date or medical record number, Accurate procedure consent form, Correct patient position, Necessary equipment is available, Anticipated non-routine events with surgical team (case duration, estimated blood loss, patient specific concerns)., [place] patient factors for recovery and management identified with surgical team. When Applicable Confirmation correct Team Members CHUCKIE VOSS MD, side and site marked, Present for Time Out Yunior Alaniz RN, Relevant images and Javan Harrell G, results are properly FierstosAngelic R Rad labeled and Tech appropriately displayed, Alcohol based prep dry Instrument Sterility Procedure IR Drainage Cath Injection for Eval SN Last Modified By: Yunior Alaniz RN 12/05/23 15:12:28 Skin Prep- IR Entry 1 Procedure IR Drainage Cath Injection for Eval SN Skin Prep Prep Area Abdomen, Flank Side Right, Lateral By Javan Harrell Prep Agents Chloraprep, Betadine Scrub Hair Removal Method N/A Last Modified By: Yunior Alaniz RN 12/05/23 14:46:11 Patient Positioning- IR Entry 1 Procedure IR Drainage Cath Body Position OP Supine Injection for Eval SN Feet Uncrossed? Yes Pressure Points Yes Checked Last Modified By: Yunior Alaniz RN 12/05/23 14:46:19 Radiology Procedure Plan - IR Entry 1 Radiology - Nursing Care Plan Outcome Statement The patient Outcome Statement The patient receives demonstrates knowledge Cont. appropriate of the expected medication(s), safely responses to the administered during the operative/invasive perioperative/invasive procedure., The period., The patient is patient's value system, free from signs and lifestyle, ethnicity, symptoms of injury and culture are caused by extraneous considered, respected, objects (equipment, and incorporated in the instrumentation, perioperative plan of sponges, or sharps). care., The patient is free from signs and symptoms of infection., The patient is free from signs and symptoms of injury related to positioning. Radiology - Action Plan Outcomes Met? Yes Head Of Art Yunior Alaniz RN Completing Procedure Plan Last Modified By: Yunior Alaniz RN 12/05/23 14:46:31 Case Comments Finalized By: Yunior Alaniz RN Document Signatures Signed By: Yunior Alaniz RN 12/05/23 15:14 [id number] Evaluation + Plan noteExtracted from: Title:IR Pre-Procedure H&P Author:ALONZO VILLARREAL PA-C Date:12/05/23 IR PREPROCEDURE H&P UPDATE IF A HISTORY AND PHYSICAL EXAMINATION HAS BEEN COMPLETED PRIOR TO ADMISSION TO THE HOSPITAL, AN UPDATED EXAMINATION MUST BE COMPLETED AND DOCUMENTED WITHIN 24 HOURS AFTER ADMISSION OR REGISTRATION BUT BEFORE A SURGICAL PROCEDURE. I have examined the patient, reviewed the H&P, and there are no changes unless noted below: _ The most recent H&P/Office Note was performed on 12/04/2023 and can be found in the [facility] ([facility]). Jae Villarreal PA-C Interventional Radiology Pager: [phone] IR dept: x [phone] Available on [employer] Future Scheduled Tests Radiology* CT Abdomen w/ IV Contrast Only 12/05/23 [facility] 06-11[facility]24 History and physical note IR PREPROCEDURE H&P UPDATE IF A HISTORY AND PHYSICAL EXAMINATION HAS BEEN COMPLETED PRIOR TO ADMISSION TO THE HOSPITAL, AN UPDATED EXAMINATION MUST BE COMPLETED AND DOCUMENTED WITHIN 24 HOURS AFTER ADMISSION OR REGISTRATION BUT BEFORE A SURGICAL PROCEDURE. I have examined the patient, reviewed the H&P, and there are no changes unless noted below: _ The most recent H&P/Office Note was performed on 12/04/2023 and can be found in the [facility] ([facility]). Jae Villarreal PA-C Interventional Radiology Pager: [phone] IR dept: x [phone] Available on [employer] Digitally Signed by JAE VILLARREAL PA-C on 12/05/2023 01:58 PM Digitally Signed by CHUCKIE VOSS MD on 12/05/2023 03:44 PM [id number] Hospital Discharge instructions Patient Education 12/04/2023 12:09:06 Caring for a Closed Suction Drainage Tube Caring for a Closed Suction Drainage Tube A drainage tube removes fluid from around an incision. This helps prevent infection and promotes healing. The collection bulb at the end of the tube is squeezed and plugged to create suction. The bulb should be emptied and reset when half full to maintain adequate suction. You need to empty the bulb and clean the skin around the drain as often as your healthcare provider tells you to. Follow the steps below. What you ll need Have the following items ready: Disposable gloves Measuring cup Record sheet Gauze or paper towel Sterile cotton swabs or 4" x 4" gauze pads Sterile saline or soap and water Step 1. Empty the bulb Wash your hands and put on a new pair of disposable gloves. Point the top of the bulb away from you and remove the stopper. Turn the bulb upside down over a measuring cup. Squeeze the fluid into the cup. Make sure the bulb is totally empty. Put the cup to one side. You can record the volume of liquid in the cup after you clean and reconnect the bulb in step 2. Step 2. Clean and reconnect the bulb Clean the top of the bulb with clean gauze or a paper towel, if needed. Squeeze the bulb tight, and put the stopper back on the top. Record the amount of fluid in the cup. Then, empty the cup as directed. Step 3. Clean the site Remove your disposable gloves and wash your hands before cleaning the site. Put on a new pair of disposable gloves. Wet a sterile cotton swab or 4" x 4" gauze pad with sterile saline or soap and water. Gently clean the skin around the drain. Always wipe away from the incision. Apply an antibacterial ointment if directed. When to call your healthcare provider Call your healthcare provider if you notice any of these changes: The amount of fluid increases or decreases suddenly Large amount of blood or a clot in drainage Color, odor, or thickness of the fluid changes Tube falls out or the incision opens Skin around the drain is red, swollen, painful, or seeping pus You have a fever of 100.4 F (38 C) or higher, or as directed by your healthcare provider If the tube isn't draining Here are tips to drain the tube: Uncurl any kinks in the tube. With one hand, firmly hold the base of the tube between your thumb and index finger. Do not touch the incision. Put the thumb and index finger of your other hand on the tube, next to the first hand. Pinch your fingers together. Then pull them along the tube toward the bag. This will help push any clogged fluidthrough the tube. This is called "stripping the tube." You may find it helpful to hold an alcohol swab between your fingers and the tube to lubricate the tubing. If the tube still does not drain, call your healthcare provider. [phone] [employer]. [address] [place] [address], [place] [address]. All rights reserved. This information is not intended as a substitute for professional medical care. Always follow yourhealthcare professional's instructions. Follow Up Care 12/04/2023 08:44:24 With:MAXINE FORD MD, [facility] Address: [address] [place] [address] [place] [address]- [phone] When:12/05/2023 With:MAGO ELLIOTT MD Address: [address] [place] [address] [address] [place] [phone] When:2-4 days [facility] 06-10-2024 Emergency department Discharge summary Discharge Instructions Thank you for allowing [facility] to assist you with your healthcare needs. The following is importantdischarge information regarding your hospital visit. What to Do Next Instructions from Your Care Team Follow-up with your PCP in the next 2 to 4 days. Please follow-up with the interventional radiology department tomorrow as per your scheduled appointment. Please return to the emergency department if you start experiencing worsening pain or another issuewith your drains. Please return to the emergency department if you start experiencing high fevers or notice yellowing of your eyes. No qualifying data available. Post Acute Orders No qualifying data available. You Need to Schedule the Following Appointments Follow Up with MAGO ELLIOTT MD When:Within 2-4 days Where:[address] [place] [phone] Follow Up with MAXINE FORD MD, [facility] When:In 1 day 12/05/2023 EDT Where:[address] [facility] [place] [address]- [phone] Allergies acetaminophen rash erythromycin Medications Please ask your primary doctor or pharmacist before taking any other medication not listed, including over the counter drugs, herbal medications, vitamins and or supplements as they may interact withyour home medications. What How Much When Instructions Last Dose Unchanged acetaminophen (Tylenol 325 mg oral capsule) 650 Milligram by mouth Every 4 hours as needed for Temperature greater than 38.5 degrees C Unchanged aspirin (aspirin 81 mg oral delayed release tablet) 1 tab(s) by mouth Once a day Unchanged enoxaparin (Lovenox) 40 Milligram Subcutaneous Once a day Unchanged insulin glargine (Lantus 100 units/ mL10 ml vial solution) 16 unit(s) Subcutaneous (INT) Daily at bedtime Unchanged insulin lispro (HumaLOG) (HumaLOG 100 units/ mL subcutaneous solution) Give 0-10 units/dose Subcutaneous Three (3) times a day before meals Unchanged insulin lispro (HumaLOG) (HumaLOG KwikPen 100 units/ mL injectable PEN) 5 unit(s) Subcutaneous Three (3) times a day before meals Unchanged ketotifen ophthalmic (ketotifen 0.025% ophthalmic solution) 2 Drops Ophthalmic Every 12 hours Unchanged levocetirizine (Xyzal 5 mg oral tablet) 1 tab(s) by mouth Once a day Unchanged metFORMIN (metFORMIN 1000 mg oral tablet (IR)) 1 tab(s) by mouth Two (2) times a day Unchanged montelukast (montelukast 10 mg oral tablet) 1 tab(s) by mouth Once a day Unchanged piperacillin-tazobactam (Zosyn) 3.375 gram(s) IV Piggyback Every 8 hours Unchanged rosuvastatin (rosuvastatin 40 mg oral tablet) 1 tab(s) by mouth Once a day Unchanged sertraline (sertraline 50 mg oral tablet) 1 tab(s) by mouth Once a day Unchanged traZODone (traZODone 100 mg oral tablet) 1 tab(s) by mouth Daily at bedtime Please take this list to your next doctor s visit. Bring all medications you take, including over the counter medications, herbals and other supplements with you to your doctor s visit. Patients and families are reminded to discard old lists and to update any records with all medication providers or retail pharmacies. Education Materials Caring for a Closed Suction Drainage Tube A drainage tube removes fluid from around an incision. This helps prevent infection and promotes healing. The collection bulb at the end of the tube is squeezed and plugged to create suction. The bulb should be emptied and reset when half full to maintain adequate suction. You need to empty the bulb and clean the skin around the drain as often as your healthcare provider tells you to. Follow the steps below. What you ll need Have the following items ready: Disposable gloves Measuring cup Record sheet Gauze or paper towel Sterile cotton swabs or 4" x 4" gauze pads Sterile saline or soap and water Step 1. Empty the bulb Wash your hands and put on a new pair of disposable gloves. Point the top of the bulb away from you and remove the stopper. Turn the bulb upside down over a measuring cup. Squeeze the fluid into the cup. Make sure the bulb is totally empty. Put the cup to one side. You can record the volume of liquid in the cup after you clean and reconnect the bulb in step 2. Step 2. Clean and reconnect the bulb Clean the top of the bulb with clean gauze or a paper towel, if needed. Squeeze the bulb tight, and put the stopper back on the top. Record the amount of fluid in the cup. Then, empty the cup as directed. Step 3. Clean the site Remove your disposable gloves and wash your hands before cleaning the site. Put on a new pair of disposable gloves. Wet a sterile cotton swab or 4" x 4" gauze pad with sterile saline or soap and water. Gently clean the skin around the drain. Always wipe away from the incision. Apply an antibacterial ointment if directed. When to call your healthcare provider Call your healthcare provider if you notice any of these changes: The amount of fluid increases or decreases suddenly Large amount of blood or a clot in drainage Color, odor, or thickness of the fluid changes Tube falls out or the incision opens Skin around the drain is red, swollen, painful, or seeping pus You have a fever of 100.4 F (38 C) or higher, or as directed by your healthcare provider If the tube isn't draining Here are tips to drain the tube: Uncurl any kinks in the tube. With one hand, firmly hold the base of the tube between your thumb and index finger. Do not touch the incision. Put the thumb and index finger of your other hand on the tube, next to the first hand. Pinch your fingers together. Then pull them along the tube toward the bag. This will help push any clogged fluidthrough the tube. This is called "stripping the tube." You may find it helpful to hold an alcohol swab between your fingers and the tube to lubricate the tubing. If the tube still does not drain, call your healthcare provider. [phone] [employer]. [address] [place] [address], [place] [address]. All rights reserved. This information is not intended as a substitute for professional medical care. Always follow yourhealthcare professional's instructions. Additional Information VACCINATE! IT SAVES LIVES! Members of the community who have not yet received the COVID-19 vaccine and would like to receive it can visit one of [facility] vaccine clinics. There are many vaccine clinic locations within the [facility]. For locations and available times, please visit www.gettheshot.coronavirus.[place].gov/. It is important to note that some COVID mobile vaccine clinics are held outdoors and may be canceled in rainy or stormy conditions. To learn more about pediatric vaccinations (ages 5-11), we invite you to visit the [facility] webpage. https://www.[facility].org/pages/1729-Vasmq-Eozvjzwjpfl-Uoaawamnws-Hhlsf-Ewc stions.htmlTo learn more about the COVID-19 vaccine, we invite you to visit the CDC website for a list of frequently asked questions. https://www.cdc.gov/coronavirus/2019-ncov/vaccines/faq.html [facility] [employer] Patient Portal Access Instructions: Stay connected with your healthcare team and access your personal medical information anytime with the [facility] Patient Portal. If you would like a full copy of your medical records please contact the [facility] Medical Records Department Monday through Monday between 8a.m. and 4:30p.m. Please follow the directions below to access the portal: 1.Access the email account you provided upon registration to the [facility].2.Look for an invitation email from [facility].3.Open the email and access the invitation link: Accept Invitation to [facility]4.Fill in the required middleton to create your account. Sign into [email or web address] with your username and password that you created in the above steps to stay up to date. You can then view a summary of results, a summary of your visits, and the ability to download your summaries to your computer or send the information securely to a physician. Remember that your healthcare information is confidential, so carefully consider who you will allow to register on the [facility] Patient Portal for access to your information. You can also access the [facility] Patient Portal on the [employer]. Simply click on "Health Records" under "[employer]" and then click on the [facility] logo. HOW TO SAFELY DISPOSE OF PRESCRIPTION MEDICATIONS Please use one of the following methods to safely dispose of your unused medications. 1.Use a drug disposal kit: the drug disposal pouch allows you to safely discard your old and unuseddrugs. Ask your nurse to give you one when you are discharged.2.Visit a local take-back location: Many local pharmacies and police departments have programs that collect old and unwanted prescriptiondrugs. Call your local pharmacy or go to http://[employer]/7A8Fq0b to find one close to you.3.Make use of household items: Use cat litter or old coffee grounds to dispose medications if other options arenot available. Mix your drugs with these household products, seal them in an airtight container andthrow it into the garbage. Call [facility]: [phone] to be sure your drugs can be disposed of in this way. Some medicines may require a different approach.4.Never flush your medications down the toilet. IF YOU HAVE BEEN PRESCRIBED AN OPIOIDS FOR PAIN If you have been prescribed an opioid (such as hydrocodone, oxycodone or morphine), it is critical to understand the possible side effects and risks of opioid pain medications. Even when taken as directed, opioids can have several side effects including: Tolerance, meaning you might need to take more of a medication for the same pain relief. Nausea, vomiting and/or constipation. Sleepiness, dizziness, dry mouth, confusion, depression or itching. Physical dependence, meaning you have withdrawal symptoms when a medication is stopped ? this can develop within a few days. KNOW YOUR RESPONSIBILITIES It is important to know exactly how much and how often to take the opioid pain medications you are prescribed. Never take opioids in higher amounts or more often than prescribed. Do not combine opioids with alcohol or other drugs that cause drowsiness, such as benzodiazepines, also known as benzos,including diazepam and alprazolam, muscle relaxants or sleep aids. Never sell or share prescriptionopioids. This is illegal. Store opioids in a secure place and out of reach of others (including children, family, friends and visitors). The last page(s) of this document has been signed and retained as a CHART COPY Signatures Patient Education Materials Caring for a Closed Suction Drainage Tube Medication Leaflets My discharge plan and instructions have been reviewed and explained to me and IJONAS WAYNE E understand my current condition and have read and understand these discharge instructions. I have received a written copy of the plan/instructions. If I have questions, I am aware that I should contact my doctor. 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 Multiplanar reformatted images are provided for review. Automated exposure control, iterative reconstruction, and/or weight based adjustment of the mA/kV was utilized to reduce the radiation dose to as low as reasonably achievable. COMPARISON: MRI abdomen 11/19/[address] abdomen/pelvis 11/13/2023 HISTORY: ORDERING SYSTEM PROVIDED HISTORY: Reason for Exam: PT HAS 3 LIVER TUBES, STATES HE PULLED ONE 3" OUT TODAY evaluation of nephrostomy tubes FINDINGS: The lung bases demonstrate bibasilar subsegmental atelectasis/scarring. No acute abnormalities identified. Coronary artery atherosclerotic calcifications. Aortic root calcifications. Evaluation is significantly degraded secondary to metal artifact from surgical drains. 3 hepatic drains are present. The anterior-most drain appears some peripherally located along the margin of the liver. Previously described irregular heterogeneous area within the inferior liver is difficult to accurately measure although appears smaller compared to 11/13/2023 exam. A few locules of air are seen within the collection. There is mild intra and extrahepatic biliary ductal dilatation which is new from comparison 11/13/2023 exam. Spleen is borderline enlarged measuring 13.1 cm. The adrenal glands are unremarkable. Trace pericystic edema. Focal masslike appearance of the pancreatic head is similar to prior. Unchanged 9 mm calcification within the pancreatic head. The portal vein and superior mesenteric veins appear patent. A nephrostomy tube is not visualized within either kidney. No obstructing renal calculus or hydronephrosis is identified. There is pericystic fluid/infiltrative changes bilaterally. Visualized portions of the ureters are grossly unremarkable. Hyacinth hepatis lymphadenopathy measuring 2.2 cm appears enlarged, previously 1.8 cm. Trace perihepatic fluid. Atherosclerotic calcifications of the nonaneurysmal abdominal aorta. Tiny fat containing umbilical hernia. Visualized colon and small bowel demonstrate no acute abnormality. Multilevel degenerative changes of the spine without acute or aggressive osseous abnormality. IMPRESSION: Exam is degraded secondary to metal artifact. 1. 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 The anterior-most surgical hepatic drain appears peripheral along the margin of the liver with new subcapsular fluid. Areas hepatic heterogeneity are poorly evaluated although appear smaller from comparison 11/13/2023 exam. Interval development of mild intra and extrahepatic biliary ductal dilatation which may represent postobstructive biliopathy or perhaps cholangitis. 2. Similar focal masslike prominence of the pancreatic head with atrophy of the remaining pancreas better evaluated on comparison MRI abdomen. This may represent focal pancreatitis versus pancreatic neoplasm. 3. Enlarging hyacinth hepatis lymphadenopathy which may reactive/hyperplastic or metastatic disease. 4. Other chronic and incidental findings as above. I have personally reviewed the images of this examination and agree with the resident's findings and interpretations. Interpreted by: Mireya Marley MD Preliminary Report By: Heber Brar Electronically signed By Mireya Marley MD Dictated Date: 12/04/2023 11:02:16 AM Prelim Date: 12/04/2023 11:34:57 AM Sign Date: 12/04/2023 12:33:50 PM Ordering Provider: [facility]06-03-2024 NoteORIGINAL PROCEDURE: 1. Fluoroscopic drainage catheter evaluation (Abscessogram). 2. Ultrasound and fluoroscopic guided percutaneous drainage catheter placement (3 Sites). Date: 11/22/2023. INDICATION: 62 y/o with multiple hepatic abscess collections status post percutaneous drainage. There are 2 existing intrahepatic drainage catheters. There has been pain and leaking from the more inferior catheter with flushing. COMPARISON: CT Abdomen/Pelvis dated 11/13/2023 and Abdominal MRI dated 11/19/2023. TECHNIQUE/FINDINGS: The procedure was performed in the VIR Suite following informed consent and a Time Out. Local anesthesia was obtained using 2% lidocaine. With the patient in a supine position, the right upper quadrant of the abdomen and existing 10-F locking pigtail drainage catheters were prepped and draped in the usual sterile fashion. A fluoroscopic entry level mechanical engineer image demonstrated expected position of the two intrahepatic drainage catheters. The inferior catheter was gently injected with contrast using sterile technique. The abscessogram demonstrated occlusion of the existing drainage catheter. The existing catheter was exchanged over guidewire for a 5-F Corey. Injection of contrast demonstrated in irregular parenchymal collection. There was a thin tract to a larger abscess collection. Attempts at advancing the catheter or guidewire into this adjacent collection were unsuccessful. Contrast was then gently injected through the superior drainage catheter, which also demonstrated near complete obstruction by debris. There was a moderate irregular abscess cavity demonstrated. Advancement of a guidewire through the existing catheter was unsuccessful. Therefore, the catheter was removed and new access necessary. A fluoroscopic entry level mechanical engineer image demonstrated several irregular collections containing residual contrast. Detailed sonographic assessment of the liver was performed. Numerous irregular hepatic collections were identified. Using ultrasound guidance, a collection was entered with a 15 cm, 18-G needle. Contrast was injected through the needle, which opacified an adjacent abscess cavity isolated from the prior catheter. Using fluoroscopic guidance, a 0.035 inch guidewire was inserted into the collection through the needle. The tract was dilated over the guidewire. A new 14-F locking pigtail drainage catheter was advanced into the collection. Using ultrasound and fluoroscopic guidance, a 2nd access corresponding to the prior superior drain was obtained. A 0.035 inch guidewire was advanced through the needle and coiled within the collection. A 14-F locking pigtail drainage catheter was advanced over the guidewire. An additional inferior collection was demonstrated by ultrasound and correspond to the initially visualized collection which could not be accessed by fluoroscopic manipulation. A 3rd percutaneous access was obtained using the same techniques. A 14-F locking pigtail drainage catheter was advanced into the collection. Aspiration yielded geeta pus. Each catheter was placed to bag drainage, secured with suture, and dressed in the usual fashion. There were no immediate complications. Total Fluoroscopy Time: 25.1 minutes. Reference Air Kerma (ZEINAB): 1936.93 mGy. Intra-Service Time (Moderate Sedation): 90 minutes. Patient Monitoring: I personally supervised and directed an independent trained observer who assisted in monitoring the patient's level of consciousness and physiological status throughout the procedure. IMPRESSION: 1. Abscessogram demonstrated irregular hepatic abscess collections with occluded/nearly occluded drainage catheters. 2. Successful placement of three new percutaneous intrahepatic 14-F locking pigtail drainage catheters. Interpreted by: Chuckie Voss MD Preliminary Report By: Chuckie Voss MD Electronically signed By Chuckie Voss MD Dictated Date: 11/27/2023 12:12:32 PM Prelim Date: 11/27/2023 12:42:16 PM Sign Date: 11/27/2023 12:42:16 PM Ordering Provider: [facility] ([place]11-22-2023 Oncology Progress note Subjective Less abdominal pain Patient was going to [facility] for further investigation Objective Vitals and Measurements T: 36.9 C (Oral) TMIN: 36.7 C (Oral) TMAX: 36.9 C (Oral) HR: 57 (Monitored) RR: 13 BP: 117/91 SpO2:94% Intake and Output 7AM Yesterday to 7AM Today Intake and Output (Last 24 hours) Intake Oral Intake 360.00 Output Surgical Drain, Tube Output: 50.00 Urine Voided 2700.00 Stool Count 0.00 Urine Count 1.00 Total Summary Total Intake 360.00 Total Output 2750.00 Fluid Balance -2390.00 Physical Exam 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 Respiratory: No breathing difficulty Weight Dosing Weight: 102.5 kg (11/20/23) Dosing Weight: 99 kg (11/12/23) Medications Medications (28) Active Scheduled: (14) aspirin 81 mg EC 81 mg 1 tab(s), Oral, qDay enoxaparin 40 mg/ 0.4mL syringe 40 mg 0.4 mL, Subcutaneous, qDay insulin glargine 16 unit(s) 0.16 mL, Subcutaneous (INT), qHS insulin lispro 100 units/mL Soln (3 mL) 5 unit(s) 0.05 mL, Subcutaneous, TIDAC insulin lispro 100 units/mL Soln (3 mL) Give 0-10 units/dose, Subcutaneous, TIDAC ketotifen ophthalmic 0.025% (ketotifen fumarate 0.035%) Solution 2 drop(s), Ophthalmic, q12h lidocaine 1% (MPF) 2 mL vial pf 30 mg 3 mL, Intradermal, prep pharm loratadine 10 mg Tablet 10 mg 1 tab(s), Oral, qDay metformin 500 mg Tablet 1,000 mg 2 tab(s), Oral, BID montelukast 10 mg Tablet 10 mg 1 tab(s), Oral, qDay piperacillin-tazobactam PMX 3.375 gram(s) 50 mL, IV Piggyback, q8hr rosuvastatin 20 mg tablet 40 mg 2 tab(s), Oral, qDay sertraline 50 mg tablet 50 mg 1 tab(s), Oral, qDay traZODONE 100 mg Tablet 100 mg 1 tab(s), Oral, qHS Continuous: (0) PRN: (14) acetaminophen 325 mg Tablet 650 mg 2 tab(s), Oral, q4h acetaminophen 650 mg Suppository 650 mg 1 supp, Rectal, q4h Al hydrox/Mg hydrox/simethicone 200-200-20 mg/5 mL Susp UD 30 mL, Oral, q2h bisacodyl 5 mg EC tablet 10 mg 2 tab(s), Oral, qDay dextrose 50% Solution Disp syringe 50 mL 12.5 gram(s) 25 mL, IV Push, AsDirected diclofenac topical 1% Gel 50 g 2 gram(s), Topical, QID docusate-senna (Senokot S) 50 mg-8.6 mg Tablet 1 tab(s), Oral, BID HYDROmorphone 0.5 mg/0.5 mL PF syringe 0.5 mg 0.5 mL, IV Push, q3h hydroxyzine pamoate 50 mg capsule 50 mg 1 cap(s), Oral, TID melatonin 3 mg tablet 3 mg 1 tab(s), Oral, qHS ocular lubricant preserved Soln 15 mL 1 drop(s), Eyes, both, BID ondansetron 2 mg/ 1 mL 2 mL INJ 4 mg 2 mL, IV Push, q4h oxyCODONE 10 mg Tab (Immediate Release) 10 mg 1 tab(s), Oral, q4h oxycodone 5 mg tablet (immediate release) 5 mg 1 tab(s), Oral, q4h Lab Results 11/21 05:19 WBC: 8.4 Hgb: 11.3 L Hct: 34.6 L Platelet: 496 H Neutrophil %: 71.1 Protime: 12.7 PT International Ratio: 1.1 Glucose Level: 182 H Sodium Level: 139 Potassium Level: 4.7 BUN: 11.0 Creatinine Lvl (s): 0.86 11/20 14:27 WBC: 8.4 Hgb: 10.8 L Hct: 32.4 L Platelet: 462 H Neutrophil %: 71.5 Glucose Level: 136 H Sodium Level: 139 Potassium Level: 4.1 BUN: 12.0 Creatinine Lvl (s): 0.87 EKG No qualifying data available. Assessment/Plan Masses in the pancreas and liver Patient reported pain in the mid upper abdomen for last 1 month 40 pound weight loss in the last 2 months Patient denies seeing any blood in the stools 11/12/2020 CT scan of abdomen and pelvis were done Prominent central and inferior liver lesions were seen. Possible causes included necrotic neoplasm, abscess. Masslike prominence of the head of the pancreas was seen Hyacinth hepatis adenopathy was noted. Patient was evaluated by gastroenterology Findings were suspicious for malignant process considering abdominal pain and weight loss in 2 months Imaging studies were worrisome for malignant process Tumor marker non diagnostic 11/16/2023: Needle biopsy and aspiration of the liver mass was performed. Pus was drained Specimen was obtained for pathology. Drain was placed Pathology: No evidence of malignancy. Findings were indicative of abscess 11/19/2023 MRI of the pancreas and liver was performed 4 cm mass in the head of pancreas Liver masses were considered to be related to abscess Hyacinth hepatis lymphadenopathy up to 3 cm in size Patient will benefit from EUS guided biopsy of the pancreatic mass He was being transferred to [facility] for further investigation Feeling somewhat better today Digitally Signed by LINDSEY PEREZ MD on 11/22/2023 07:39 PM [id number] Discharge instructions Patient Education 11/22/2023 15:57:47 Acute Pancreatitis Acute Pancreatitis The pancreas is a gland that is located behind the stomach on the left side of the abdomen. It produces enzymes that help to digest food. The pancreas also releases the hormones glucagon and insulin,which help to regulate blood sugar. Acute pancreatitis happens when inflammation of the pancreas suddenly occurs and the pancreas becomes irritated and swollen. Most acute attacks last a few days and cause serious problems. Some people become dehydrated and develop low blood pressure. In severe cases, bleeding in the abdomen can lead to shock and can be life-threatening. The lungs, heart, and kidneys may fail. What are the causes? This condition may be caused by: Alcohol abuse. Drug abuse. Gallstones or other conditions that can block the tube that drains the pancreas (pancreatic duct). A tumor in the pancreas. Other causes include: Certain medicines. Exposure to certain chemicals. Diabetes. An infection in the pancreas. Damage caused by an accident (trauma). The poison (venom) from a scorpion bite. Abdominal surgery. Autoimmune pancreatitis. This is when the body's disease-fighting (immune) system attacks the pancreas. Genes that are passed from parent to child (inherited). In some cases, the cause of this condition is not known. What are the signs or symptoms? Symptoms of this condition include: Pain in the upper abdomen that may radiate to the back. Pain may be severe. Tenderness and swelling of the abdomen. Nausea and vomiting. Fever. How is this diagnosed? This condition may be diagnosed based on: A physical exam. Blood tests. Imaging tests, such as X-rays, CT or MRI scans, or an ultrasound of the abdomen. How is this treated? Treatment for this condition usually requires a stay in the hospital. Treatment for this condition may include: Pain medicine. Fluid replacement through an IV. Placing a tube in the stomach to remove stomach contents and to control vomiting (NG tube, or nasogastric tube). Not eating for 3 4 days. This gives the pancreas a rest, because enzymes are not being produced that can cause further damage. Antibiotic medicines, if your condition is caused by an infection. Treating any underlying conditions that may be the cause. Steroid medicines, if your condition is caused by your immune system attacking your body's own tissues (autoimmune disease). Surgery on the pancreas or gallbladder. Follow these instructions at home: Eating and drinking Follow instructions from your health care provider about diet. This may involve avoiding alcohol and decreasing the amount of fat in your diet. Eat smaller, more frequent meals. This reduces the amount of digestive fluids that the pancreas produces. Drink enough fluid to keep your urine pale yellow. Do not drink alcohol if it caused your condition. General instructions Take hjon-ten-riipgvy and prescription medicines only as told by your health care provider. Do not drive or use heavy machinery while taking prescription pain medicine. Ask your health care provider if the medicine prescribed to you can cause constipation. You may need to take steps to prevent or treat constipation, such as: ?Take an lteo-lww-oleobjj or prescription medicine for constipation. ?Eat foods that are high in fiber such as whole grains and beans. ?Limit foods that are high in fat and processed sugars, such as fried or sweet foods. Do not use any products that contain nicotine or tobacco, such as cigarettes, e- cigarettes, and chewing tobacco. If you need help quitting, ask your health care provider. Get plenty of rest. If directed, check your blood sugar at home as told by your health care provider. Keep all follow-up visits as told by your health care provider. This is important. Contact a health care provider if you: Do not recover as quickly as expected. Develop new or worsening symptoms. Have persistent pain, weakness, or nausea. Recover and then have another episode of pain. Have a fever. Get help right away if: You cannot eat or keep fluids down. Your pain becomes severe. Your skin or the white part of your eyes turns yellow (jaundice). You have sudden swelling in your abdomen. You vomit. You feel dizzy or you faint. Your blood sugar is high (over 300 mg/dL). Summary Acute pancreatitis happens when inflammation of the pancreas suddenly occurs and the pancreas becomes irritated and swollen. This condition is typically caused by alcohol abuse, drug abuse, or gallstones. Treatment for this condition usually requires a stay in the hospital. This information is not intended to replace advice given to you by your health care provider. Make sure you discuss any questions you have with your health care provider. Document Released: 06/12/2006 Document Revised: 04/01/2019 Document Reviewed: 12/17/2018 [employer] Patient Education 2020 Health As We Age. Follow Up Care 11/12/2023 11:29:42 With:SYLWIA DUMONT BA, MD, Infectious Disease, Infectious Disease Group Address: [facility] [address] [place] [address]- When:Within 4 Week(s) With:[facility] Address: [address] [place] [address]- When:Within 4 Week(s) With:SMITH MCKEON MD Address: [address] [facility] [place] [address]- [phone] When:Within 8 Week(s) With:MAGO ELLIOTT Address: [address] [place] [address] Business (1) When:3-7 days Comments:Please call the office to schedule a follow-up appointment. With:LINDSEY PEREZ MD Address: [address] [place] [address] [place] [phone] When:Within 4 Week(s) With:[facility] [phone] Address: When:1-2 days With:[facility] will supply IV infusions, any questions, Please call [phone] Address:Unknown When:1-2 days With:MAXINE FORD MD, [facility] Address: [address] [place] [address] [facility] [place] [phone] When: Unknown Comments:As needed, call [phone] with questions regarding your abscess drainage catheters.Plan for a follow up in [address] scan and drainage catheter evaluation [facility] Note IR Procedure Record Summary Primary Physician: CHUCKIE VOSS MD Finalized Date/Time: 11/22/23 16:09:12 Pt. Name: KYLE MCDANIEL Luis Powell/Sex: 1960 Male Med Rec #: [id number] Physician: RED VALENZUELA MD Financial #: [id number] Pt. Type: I Room/Bed: [facility]/ Admit/Disch: 11/12/23 11:26:24 - Institution: Allergies identified in patient's electronic medical record at time of printing on 11/22/23 Entry 1 Substance erythromycin Reaction Type Allergy Last Modified By: Belkis Ricardo RN 11/12/23 11:34:42 Case Attendance- IR Entry 1 Entry 2 Entry 3 Case Attendee CHUCKIE VOSS MD, Rad Tech Beans, Aaron RN Amanda K Role Performed Primary Surgeon Scrub Technologist Procedure Nurse Details Time In 11/22/23 13:33:00 11/22/23 13:33:00 11/22/23 13:33:00 Time Out 11/22/23 15:31:00 11/22/23 14:25:00 11/22/23 15:46:00 Procedure/Preference IR Drainage Cath IR Drainage Cath IR Drainage Cath Card Injection for Eval SN Injection for Eval SN Injection for Eval SN Last Modified By: Yunior Alaniz RN, Aaron RN Beans, Aaron RN 11/22/23 15:32:51 11/22/23 15:32:51 11/22/23 15:32:51 Entry 4 Entry 5 Entry 6 Case Attendee PATSY Gamble Megan R Rad Herrick, Cover Maker Sandra Tech L Role Performed Yard Caller 1 Scrub Technologist Circulating Technologist Details Time In 11/22/23 13:33:00 11/22/23 14:25:00 11/22/23 14:25:00 Time Out 11/22/23 14:24:00 11/22/23 15:46:00 11/22/23 15:46:00 Procedure/Preference IR Drainage Cath IR Drainage Cath IR Drainage Cath Card Injection for Eval SN Injection for Eval SN Injection for Eval SN Last Modified By: Yunior Alaniz RN, Aaron RN Beans, Aaron RN 11/22/23 15:32:51 11/22/23 15:32:51 11/22/23 15:32:51 Radiology Procedures- IR Entry 1 Procedure/Preference IR Drainage Cath Actual Procedure ir drainage cath Card Injection for Eval SN injection Primary Procedure Yes Primary Surgeon CHUCKIE VOSS MD Anesthesia/Sedation IV Sedation, Local Type Additional Procedure Times Start 11/22/23 13:48:00 Stop 11/22/23 15:31:00 Specialty Service SN Radiology Procedure EBL 0 mL Last Modified By: Yunior Alaniz RN 11/22/23 15:33:07 Radiology Procedure Details - IR Entry 1 Radiology Sedation Case Times Sedation Start Time 11/22/23 13:49:00 Sedation Stop Time 11/22/23 15:31:00 Sedation Total Time 1 hour 42 minutes Radiology - Fluid/Drainage Radiology Contrast Contrast Used? Yes Dose 45 mL Medication CONTRAST ISOVUE 300 100ML 10/BX 1315-35 Radiology Flouroscopy Fluoroscopy Used? Yes Fluoro Dose (mGy) 1936.93 Fluoro Time 25.1 minutes Radiology Local Local Used? Yes Local Type: lido 2% Local Dose 24cc Radiology Procedure Site Site/Location Right abdomen Site Condition No complications Dressing Type Bioclusive 4 X 5, Gauze Technologist Notes 14F X 35 CM M-DRAIN sponge 4 X 4 [id number] X 3 Last Modified By: Elmer Santillan 11/22/23 16:06:07 General Case Data - IR Entry 1 Case Information Room IR 17 Case Level IR Level 1 Wound Class None Specialty SN Radiology Procedure ASA Class None Diagnosis Preop Diagnosis CVA, chronic Postop Same As Preop Yes pancreatitis Postop Diagnosis CVA, chronic pancreatitis Last Modified By: PATSY Gamble 11/22/23 13:46:48 Medication Administration- IR Entry 1 Entry 2 Entry 3 Medication versed fentanyl versed Time Administered 11/22/23 13:49:00 11/22/23 13:49:00 11/22/23 13:54:00 Route of Admin IV Push IV Push IV Push Dose 1mg 50mcg 1mg Volume VORB * *Verbal Order Read Back (VORB) is required for NON- PHYSICIAN administration of medications. Administered by No No No Physician? Administered by: Yunior Alaniz RN, Aaron RN Beans, Aaron RN Verbal Order Read CHUCKIE VOSS MD, JAMES MD BUCHINO, JAMES MD Back from: Last Modified By: PATSY Gamble RN Corey Snider, RN Corey 11/22/23 13:56:02 11/22/23 13:56:02 11/22/23 13:56:02 Entry 4 Entry 5 Entry 6 Medication fentanyl fentanyl versed Time Administered 11/22/23 13:54:00 11/22/23 14:36:00 11/22/23 14:36:00 Route of Admin IV Push IV Push IV Push Dose 50mcg 50mcg 1mg Volume VORB * *Verbal Order Read Back (VORB) is required for NON- PHYSICIAN administration of medications. Administered by No No No Physician? Administered by: Yunior Alaniz RN, Aaron RN Beans, Aaron RN Verbal Order Read CHUCKIE VOSS MD, JAMES MD BUCHINO, JAMES MD Back from: Last Modified By: PATSY Gamble Aaron RN Beans, Aaron RN 11/22/23 13:56:02 11/22/23 14:38:36 11/22/23 14:38:36 Entry 7 Entry 8 Entry 9 Medication versed fentanyl fentanyl Time Administered 11/22/23 14:59:00 11/22/23 14:59:00 11/22/23 15:12:00 Route of Admin IV Push IV Push IV Push Dose 0.5mg 25mcg 50mcg Volume VORB * *Verbal Order Read Back (VORB) is required for NON- PHYSICIAN administration of medications. Administered by No No No Physician? Administered by: Yunior Alaniz RN, Aaron RN Beans, Aaron RN Verbal Order Read CHUCKIE VOSS MD, JAMES MD BUCHINO, JAMES MD Back from: Last Modified By: Yunior Alaniz RN, Aaron RN Beans, Aaron RN 11/22/23 15:00:01 11/22/23 15:00:01 11/22/23 15:16:54 Entry 10 Medication versed Time Administered 11/22/23 15:12:00 Route of Admin IV Push Dose 1mg Volume VORB * *Verbal Order Read Back (VORB) is required for NON- PHYSICIAN administration of medications. Administered by No Physician? Administered by: Yunior Alaniz RN Verbal Order Read CHUCKIE VOSS MD Back from: Last Modified By: Yunior Alaniz RN 11/22/23 15:16:54 Procedure Case Times- IR Entry 1 Patient In Procedure Patient In OR 11/22/23 13:33:00 Patient Out of OR 11/22/23 15:46:00 Procedure Start/Stop Procedure Start Time 11/22/23 13:48:00 Procedure Stop Time 11/22/23 15:31:00 Last Modified By: Yunior Alaniz RN 11/22/23 15:32:50 Immediate Post Procedure Note - IR Entry 1 Immediate Post Yes Procedure Note displayed for Physician to review Closure Technique Closure Technique Other than Primary Last Modified By: PATSY Gamble 11/22/23 13:45:54 Immediate Post Procedure Note - IR Signed By: CHUCKIE VOSS MD 11/22/23 15:32 Allergy Information- IR Entry 1 Allergies Reviewed? Yes Allergies Reviewed Medical Record With Last Modified By: Shana Arenas RN 11/22/23 13:36:37 Radiology Protocols/Time Out- IR Entry 1 Preprocedure Clinician Verifies Correct patient ID When Clinically Confirmation of correct using name & date Indicated side(s) and site(s), or MRN, Accurate Correct diagnostic and procedure, complete radiology tests Informed Consent, H & P available update immediately prior to procedure, if applicable OR/Procedure Room/Bedside Time 11/22/23 13:48:00 Clinician Verifies Correct patient identity including EMR & records using name and date or medical record number, Accurate procedure consent form, Correct patient position, Necessary equipment is available, Anticipated non-routine events with surgical team (case duration, estimated blood loss, patient specific concerns)., [place] patient factors for recovery and management identified with surgical team. When Applicable Confirmation correct Team Members CHUCKIE VOSS MD, side and site marked, Present for Time Out Elmer Olivas Relevant images and Katty Lewis Aaron results are properly RN, PATSY Gamble labeled and appropriately displayed, Alcohol based prep dry, Double verification of sterility indicators complete Instrument Sterility Team Members Elmer Olivas Verifying Sterility Emiliano Mix Procedure IR Drainage Cath Injection for Eval SN Last Modified By: PATSY Gamble 11/22/23 13:48:40 Skin Prep- IR Entry 1 Procedure IR Drainage Cath Injection for Eval SN Skin Prep Prep Area Abdomen Side Right By Elmer Olivas Prep Agents Chloraprep Emiliano Mix Hair Removal Method N/A Last Modified By: Shana Arenas RN 11/22/23 13:38:45 Patient Positioning- IR Entry 1 Procedure IR Drainage Cath Body Position OP Supine Injection for Eval SN Feet Uncrossed? Yes Pressure Points Yes Checked Last Modified By: PATSY Gamble 11/22/23 13:45:50 Radiology Procedure Plan - IR Entry 1 Radiology - Nursing Care Plan Outcome Statement The patient Outcome Statement The patient receives demonstrates knowledge Cont. appropriate of the expected medication(s), safely responses to the administered during the operative/invasive perioperative/invasive procedure., The period., The patient is patient's value system, free from signs and lifestyle, ethnicity, symptoms of injury and culture are caused by extraneous considered, respected, objects (equipment, and incorporated in the instrumentation, perioperative plan of sponges, or sharps). care., The patient is free from signs and symptoms of infection., The patient is free from signs and symptoms of injury related to positioning. Radiology - Action Plan Outcomes Met? Yes Head Of Art Yunior Alaniz RN Completing Procedure Plan Last Modified By: PATSY Gamble 11/22/23 13:46:16 Case Comments Finalized By: Elmer Santillan Signatures Signed By: Yunior Alaniz RN 11/22/23 15:48 Elmer Santillan 11/22/23 16:09 [id number] Discharge Instructions Thank you for allowing [facility] to assist you with your healthcare needs. The following is importantdischarge information regarding your hospital visit. Your Care Team MAGO ELLIOTT MD What to do next Instructions From Your Doctor You are being transferred to 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 Your drains must stay in place for least 3 to 4 weeks to allow for adequate tract formation. After this period, If you have very little output, drains can be removed. Follow-up with interventional radiology for removal of these drains. Lastly recommend follow-up with follow-up with neurology due to presenting symptoms. We recommend aspirin out of caution. We recommend a 30-day CardioNet monitor on discharge. Follow Up Appointments Follow Up with SYLWIA DUMONT BA, MD, Infectious Disease, Infectious Disease Group When:In 4 weeks Where:[facility] [id number] [place] [address]- [facility] Up with [facility] When:In 4 weeks Where:[address] [place] [address]- Follow Up with SMITH MCKEON MD When:In 8 weeks Where:[address] [facility] [address]- [phone] Follow Up with MAGO ELLIOTT When:Within 3-7 days Where:[address] [facility] [address] [place] [address]- Business (1) Additional Information: Please call the office to schedule a follow-up appointment. Follow Up with LINDSEY PEREZ MD When:In 4 weeks Where:[address] [facility] [place] [address]- [phone] Follow Up with [facility] [phone] When:Within 1-2 days Follow Up with [facility] will supply IV infusions, any questions, Please call [phone] When:Within 1-2 days Follow Up with MAXINE FORD MD, [facility] Where:[address] [facility] [place] [address]- [phone] Additional Information: As needed, call [phone] with questions regarding your abscess drainage catheters. Plan for a follow up in [address] scan and drainage catheter evaluation at [facility]. The Following Activity and Diet Have Been Ordered for You Transfer of Care Activity - Ordered -- Activity As Tolerated, 11/22/23 15:29:00 EDT Transfer of Care Diet - Ordered -- Type of Diet: Regular Diet, Fats limit: Low, 11/22/23 15:29:00 EDT The Following Equipment Has Been Ordered for You Discharge Home Equipment Discharge Communication Order - Ordered -- Flush EACH drain once a day with 10 ml sterile normal saline., 11/16/23 16:57:27 EDT The Following Treatments Have Been Ordered for You Discharge Labs Transfer of Care Labwork - Ordered -- CBC,CMP,ESR,CRP, Chronic antibiotics, Results Notify to: SYLWIA DUMONT BA, MD, Weekly, every Monday while on antibiotics (through December 14, 2023), 11/22/23 15:29:00 EDT Discharge Radiology No qualifying data available. Other Therapies Discharge Event Monitor Instructions - Ordered -- 11/22/23 15:29:51 EDT, You have been ordered mobile outpatient telemetry. You should receive a device in the mail with further instructions. If you have not received a device within 7 days after discharge, please call [facility] at [phone]. Transfer of Care OT - Ordered -- Reason for therapy: Generalized weakness, 11/22/23 15:29:00 EDT Transfer of Care PT - Ordered -- Reason for therapy: Generalized weakness, 11/22/23 15:29:00 EDT Post Acute Orders Transfer of Care Code Status - Ordered -- Full Code, Constant Order Transfer of Care Labwork - Ordered -- CBC,CMP,ESR,CRP, Chronic antibiotics, Results Notify to: SYLWIA DUMONT BA, MD, Weekly, every Monday while on antibiotics (through December 14, 2023), 11/22/23 15:29:00 EDT Transfer of Care Orders Electronically Signed By - Ordered -- 11/22/23 15:29:00 EDT, JARED BREWSTER DO Transfer of Care Prognosis - Ordered -- Fair, Patient Aware: Yes Transfer of Care Rehab Potential - Ordered -- Rehab potential eli, 11/22/23 15:29:20 EDT Someone Will Contact You Regarding These Home Health Referrals No home referrals have been ordered for you. No one will call you. Allergies erythromycin Medications Please ask your primary doctor or pharmacist before taking any other medication not listed, including over the counter drugs, herbal medications, vitamins and or supplements as they may interact withyour home medications. What How Much When Instructions Last Dose New acetaminophen (Tylenol 325 mg oral capsule) 650 Milligram by mouth Every 4 hours as needed for Temperature greater than 38.5 degrees C New aspirin (aspirin 81 mg oral delayed release tablet) 1 tab(s) by mouth Once a day New enoxaparin (Lovenox) 40 Milligram Subcutaneous Once a day New ketotifen ophthalmic (ketotifen 0.025% ophthalmic solution) 2 Drops Ophthalmic Every 12 hours New piperacillin-tazobactam (Zosyn) 3.375 gram(s) IV Piggyback Every 8 hours Changed insulin glargine (Lantus 100 units/ mL10 ml vial solution) 16 unit(s) Subcutaneous (INT) Daily at bedtime Changed insulin lispro (HumaLOG) (HumaLOG 100 units/ mL subcutaneous solution) Give 0-10 units/dose Subcutaneous Three (3) times a day before meals Changed insulin lispro (HumaLOG) (HumaLOG KwikPen 100 units/ mL injectable PEN) 5 unit(s) Subcutaneous Three (3) times a day before meals Unchanged levocetirizine (Xyzal 5 mg oral tablet) 1 tab(s) by mouth Once a day Unchanged metFORMIN (metFORMIN 1000 mg oral tablet (IR)) 1 tab(s) by mouth Two (2) times a day Unchanged montelukast (montelukast 10 mg oral tablet) 1 tab(s) by mouth Once a day Unchanged rosuvastatin (rosuvastatin 40 mg oral tablet) 1 tab(s) by mouth Once a day Unchanged sertraline (sertraline 50 mg oral tablet) 1 tab(s) by mouth Once a day Unchanged traZODone (traZODone 100 mg oral tablet) 1 tab(s) by mouth Daily at bedtime What How Much When Comments Stop Taking ciprofloxacin (ciprofloxacin 500 mg oral tablet) 1 tab(s) by mouth Two (2) times a day Duration: 5 Days Please take this list to your next doctor s visit. Bring all medications you take, including over the counter medications, herbals and other supplements with you to your doctor s visit. Patients and families are reminded to discard old lists and to update any records with all medication providers or retail pharmacies. Education Materials Acute Pancreatitis The pancreas is a gland that is located behind the stomach on the left side of the abdomen. It produces enzymes that help to digest food. The pancreas also releases the hormones glucagon and insulin,which help to regulate blood sugar. Acute pancreatitis happens when inflammation of the pancreas suddenly occurs and the pancreas becomes irritated and swollen. Most acute attacks last a few days and cause serious problems. Some people become dehydrated and develop low blood pressure. In severe cases, bleeding in the abdomen can lead to shock and can be life-threatening. The lungs, heart, and kidneys may fail. What are the causes? This condition may be caused by: Alcohol abuse. Drug abuse. Gallstones or other conditions that can block the tube that drains the pancreas (pancreatic duct). A tumor in the pancreas. Other causes include: Certain medicines. Exposure to certain chemicals. Diabetes. An infection in the pancreas. Damage caused by an accident (trauma). The poison (venom) from a scorpion bite. Abdominal surgery. Autoimmune pancreatitis. This is when the body's disease-fighting (immune) system attacks the pancreas. Genes that are passed from parent to child (inherited). In some cases, the cause of this condition is not known. What are the signs or symptoms? Symptoms of this condition include: Pain in the upper abdomen that may radiate to the back. Pain may be severe. Tenderness and swelling of the abdomen. Nausea and vomiting. Fever. How is this diagnosed? This condition may be diagnosed based on: A physical exam. Blood tests. Imaging tests, such as X-rays, CT or MRI scans, or an ultrasound of the abdomen. How is this treated? Treatment for this condition usually requires a stay in the hospital. Treatment for this condition may include: Pain medicine. Fluid replacement through an IV. Placing a tube in the stomach to remove stomach contents and to control vomiting (NG tube, or nasogastric tube). Not eating for 3 4 days. This gives the pancreas a rest, because enzymes are not being produced that can cause further damage. Antibiotic medicines, if your condition is caused by an infection. Treating any underlying conditions that may be the cause. Steroid medicines, if your condition is caused by your immune system attacking your body's own tissues (autoimmune disease). Surgery on the pancreas or gallbladder. Follow these instructions at home: Eating and drinking Follow instructions from your health care provider about diet. This may involve avoiding alcohol and decreasing the amount of fat in your diet. Eat smaller, more frequent meals. This reduces the amount of digestive fluids that the pancreas produces. Drink enough fluid to keep your urine pale yellow. Do not drink alcohol if it caused your condition. General instructions Take fevc-sxr-zwvudlf and prescription medicines only as told by your health care provider. Do not drive or use heavy machinery while taking prescription pain medicine. Ask your health care provider if the medicine prescribed to you can cause constipation. You may need to take steps to prevent or treat constipation, such as: ? Take an yfsg-bdw-vrxrkbn or prescription medicine for constipation. ? Eat foods that are high in fiber such as whole grains and beans. ? Limit foods that are high in fat and processed sugars, such as fried or sweet foods. Do not use any products that contain nicotine or tobacco, such as cigarettes, e- cigarettes, and chewing tobacco. If you need help quitting, ask your health care provider. Get plenty of rest. If directed, check your blood sugar at home as told by your health care provider. Keep all follow-up visits as told by your health care provider. This is important. Contact a health care provider if you: Do not recover as quickly as expected. Develop new or worsening symptoms. Have persistent pain, weakness, or nausea. Recover and then have another episode of pain. Have a fever. Get help right away if: You cannot eat or keep fluids down. Your pain becomes severe. Your skin or the white part of your eyes turns yellow (jaundice). You have sudden swelling in your abdomen. You vomit. You feel dizzy or you faint. Your blood sugar is high (over 300 mg/dL). Summary Acute pancreatitis happens when inflammation of the pancreas suddenly occurs and the pancreas becomes irritated and swollen. This condition is typically caused by alcohol abuse, drug abuse, or gallstones. Treatment for this condition usually requires a stay in the hospital. This information is not intended to replace advice given to you by your health care provider. Make sure you discuss any questions you have with your health care provider. Document Released: 06/12/2006 Document Revised: 04/01/2019 Document Reviewed: 12/17/2018 Elsevier Patient Education 2020 [employer] Additional Information VACCINATE! IT SAVES LIVES! Members of the community who have not yet received the COVID-19 vaccine and would like to receive it can visit one of [facility] vaccine clinics. There are many vaccine clinic locations within the [facility]. For locations and available times, please visit [email or web address].coronavirus.[place].gov/. It is important to note that some COVID mobile vaccine clinics are held outdoors and may be canceled in rainy or stormy conditions. To learn more about pediatric vaccinations (ages 5-11), we invite you to visit the [employer] [facility] webpage. [email or web address] learn more about the COVID-19 vaccine, we invite you to visit the CDC website for a list of frequently asked questions.https://www.cdc.gov/coronavirus/2019-ncov/vaccines/faq.html [employer] Patient Portal Access Instructions: Stay connected with your healthcare team and access your personal medical information anytime with the [employer] Patient Portal. Please follow the directions below to create your [employer] account: 1.Access the email account you provided upon registration to the hospital/physician office.2.Look for an invitation email from [facility].3.Open the email and access the invitation link: AcceptInvitation to [employer].4.Fill in the required middleton to create your account. To access your account, visit [email or web address]. Click the blue button labeled "Access Patient Portal" and then log in with the username and password that you created in the steps above. You will be able to view your test results, lab results, a summary of your visits, upcoming appointments and more. There is also a convenient messaging option where you can send secure messages to your p rovider. In addition, you will have the ability to download any documents or summaries to your computer and/or send the information securely to a physician. Remember that your healthcare information is confidential, so carefully consider who you will allowto register on the [facility] Patient Portal for access to your information. You can also access the [facility] on the [facility] pio. Simply click on "Patient Portal" and then log into your account. If you would like to receive a full copy of your medical records, please contact the [facility] Medical Records Department by calling [phone], Monday through Monday between 8 a.m. and 4:30 p.m. HOW TO SAFELY DISPOSE OF PRESCRIPTION MEDICATIONS Please use one of the following methods to safely dispose of your unused medications. 1.Use a drug disposal kit: the drug disposal pouch allows you to safely discard your old and unuseddrugs. Ask your nurse to give you one when you are discharged.2.Visit a local take-back location: Many local pharmacies and police departments have programs that collect old and unwanted prescriptiondrugs. Call your local pharmacy or go to http://[employer]/4V8Fw8l to find one close to you.3.Make use of household items: Use cat litter or old coffee grounds to dispose medications if other options arenot available. Mix your drugs with these household products, seal them in an airtight container andthrow it into the garbage. Call [facility]: [phone] to be sure your drugs can be disposed of in this way. Some medicines may require a different approach.4.Never flush your medications down the toilet. IF YOU HAVE BEEN PRESCRIBED AN OPIOID FOR PAIN If you have been prescribed an opioid (such as hydrocodone, oxycodone or morphine), it is critical to understand the possible side effects and risks of opioid pain medications. Even when taken as directed, opioids can have several side effects including: Tolerance, meaning you might need to take more of a medication for the same pain relief. Nausea, vomiting and/or constipation. Sleepiness, dizziness, dry mouth, confusion, depression or itching. Physical dependence, meaning you have withdrawal symptoms when a medication is stopped, can develop within a few days. KNOW YOUR RESPONSIBILITIES It is important to know exactly how much and how often to take the opioid pain medications you are prescribed. Never take opioids in higher amounts or more often than prescribed. Do not combine opioids with alcohol or other drugs that cause drowsiness, such as benzodiazepines, also known as benzos, including diazepam and alprazolam, muscle relaxants or sleep aids. Never sell or share prescription opioids. This is illegal. Store opioids in a secure place and out of reach of others (including children, family, friends and visitors). The last page of this document has been signed and retained as a CHART COPY. Signatures Patient Education Materials Acute Pancreatitis Medication Leaflets My discharge plan and instructions have been reviewed and explained to me and I,KYLE MCDANIEL understand my current condition and have read and understand these discharge instructions. I have received a written copy of the plan/instructions. If I have questions, I am aware that I should contact my doctor. 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: Date/Time: Relationship to Patient: Witness Name/Signature: Date/Time: [id number] Discharge summary Date of Service 11/22/23 Discharge Diagnosis Acute on chronic pancreatitis Prominent pancreatic head, abnormal MRI Left mammary lymph node (follows outpatient) Poor dentition with multiple dental caries Diabetes, A1c 11.2 Hepatic lesion (abscess, strep intermedius) Hyponatremia, hypotonic, resolved Alcohol use CVA, likely chronic Anxiety Hospital Course 62-year-old male medical history chronic pancreatitis since 2018 has been intermittently having issues with flareups. This started over in [place] where he had surgical intervention patient cannot recall what type of surgery he had at that time. Patient recently moved back to [facility] andhad [facility] going to [facility] without much improvement. Patient has been having abdominal pain for the past several weeks patient did now have left upper extremity and left facial numbness and grew concerned thus presenting to the hospital for possible stroke. Patient was evaluated in the emergency department there was concern for stroke CT head was performed showing a small insult to the right thalamus which appeared chronic in nature. Patient admitted to the hospital plan for MRI/MRA and neurology consultation. After admission to the hospital patient continued to have increased abdominal discomfort. Patient CT abdomen pelvis performed which shows necrotic intrahepatic fluid collections concerning for abscess along with possibility of neoplasm patient also had masslike prominence of the head of the pancreas with significant atrophy to the body and tail. Patient will empirically be initiated on Zosyn withconsultation to gastroenterology. Patient being made n.p.o. and started on aggressive IV fluid rehydration. Patient on 11/12 complaining of abdominal pain still having left-sided paresthesias. CBC shows leukocytosis 15.2 on admission with left shift. INR 1.3 UA negative for infection CMP shows mild hyponatremia at 134, low albumin levels, elevated protein 5.6, elevated alk phos of 132 otherwise unremarkable CPK 18 A1c 11.2 Lipase 25 Cholesterol 48, triglycerides 79, HDL 10, LDL 22 Troponin negative x 4 EKG shows sinus rhythm without significant findings (personally reviewed) Chest x-ray completed 11/12/2023 personally reviewed showing no significant findings CT head shows a small chronic appearing insult in the right posterior temporal occipital lobe as well as a chronic appearing insult in the right thalamus CT a neck shows no hemodynamically significant stenosis. An incidental 6 mm left internal mammary lymph node of unknown clinical significance. Recommend outpatient monitoring. He also has degenerative disc disease, periapical lucencies, heterogeneous appearance of his bone, acute sinusitis CT angiography of the head shows no major occlusion, aneurysm or stenosis CT abdomen pelvis shows prominent central and inferior liver abnormality suggesting necrotic neoplasm or intrahepatic abscess. Masslike prominence of the head of the pancreas with prominent atrophy of the pancreatic body and tail. Focal pancreatitis could have this appearance although pancreatic malignancy must be considered. Hyacinth hepatis adenopathy suggesting hyperplastic, inflammatory or neoplastic process. EEG unremarkable Ultrasound abdomen completed 11/14/2023 showing large complex liver lesion suggesting liver abscess.This makes neoplasm less likely. Pancreas obscured. Echocardiogram completed with EF 55 to 60%. Normal wall motion. Normal diastolic function. No shunt. IVC normal size. No significant valvular disease. On 11/16/2023, patient was taken to interventional radiology given the ultrasound findings. Biopsy/drain placement was completed. A large amount of pus was removed. Cultures ended up growing Streptococcus intermedius. Drain revision/evaluation completed 11/22/23. Infectious disease reviewed the case.They are recommending IV antibiotics every 8 hours (Zosyn) until December 14, 2023. He will need weeklylab work and follow-up with infectious disease as outpatient. -> With regards to patient's drains, he should follow-up with interventional radiology. They will need to stay in place for minimum of 3 to 4 weeks to allow for adequate mature tract to form to prevent bleeding/bile leak. After that, they can removed when less than 10 mL of output daily. Drains must be removed over wire so IR must complete this task. They cannot be pulled bedside. -> Due to initial concern for stroke, MRI brain was completed with no acute findings. MRI spine was completed with no acute findings. Neurology believes this is probably a TIA type event or spasm.EEG showed no seizures. Recommends continuing aspirin alone and a 30-day CardioNet on discharge. Will need to follow-up with neurology in 2 to 4 weeks. -> Lastly gastroenterology is following due to abnormal imaging. Tumor markers are unremarkable.MRI of the liver was completed showing multiple possible findings including cholangitis, possible pancreatic mass suspicious for mass forming pancreatitis versus pancreatic neoplasm, hepatic masses most consistent with abscess formation, necrotic neoplasm cannot be entirely excluded. Given these findings gastroenterology reviewed the imaging. They recommended transfer to [facility] for inpatient EUS to better delineate the etiology of the pancreatic mass. [facility] was called and subsequently accepted patient for workup. Allergies erythromycin Procedures Echo Summary: 1. Left ventricle: The cavity size is normal. Wall thickness is normal. Systolic function is normal. The estimated ejection fraction is 55-60%. Wall motion is normal; there are no regional wall motion abnormalities. Normal diastolic function. 2. Mitral valve: There is mild regurgitation. 3. Right atrium: The estimated right atrial pressure is 3 mm Hg. 4. Atrial septum: Agitated saline shows no shunt. Consults Consult to Physician - Ordered -- 11/13/23 8:17:00 EDTCOLLIN ERIC MD, Routine, CVA Consult to Physician - Ordered -- 11/13/23 15:07:00 EDTANDREA SANJIV MD, Routine, acute on chronic pancreatitis with ?hepatic fluid collections Consult to Physician - Ordered -- 11/14/23 10:39:00 EDTSAUNDRA RAZA MD, Routine, rule out cancer (see imaging findings) Consult to Physician - Ordered -- 11/14/23 11:57:00 EDT, CANDELARIA VORA MD, Routine, anxious, concern for inappropriate behavior Consult to Physician - Ordered -- 11/15/23 10:44:00 EDT, FLOR CHRISTIE MD, Routine, Concern for live abscess Consult to Physician - Ordered -- 11/20/23 17:17:00 EDT, LINDSEY PEREZ MD, Routine, concern for pancreatic mass Imaging Results and Diagnostics MRI Liver Result Date: November 19, 2023 Verified By: MELISSA HOLLOWAY MD CLINICAL STATEMENT: IMPRESSION: 1. A 4.1 x 2.9 cm mass centered upon the pancreatic head, with mildlyheterogeneous low level enhancement. There is no definite associatedrestricted diffusion. The remainder of the pancreas is largely atrophic.Considerations include but are not limited to mass forming pancreatitis andpancreatic neoplasm.2. Heterogeneous enlarged right hepatic masses, containing a surgical drain.Findings are most consistent with abscess formation. Necrotic neoplasmcannot be entirely excluded.3. Beadedappearance of the common bile duct, without biliary ductaldilatation. Findings raise concern for cho langitis (i.e.Infectious/ischemic/inflammatory).4. Hyacinth hepatis lymphadenopathy.5. Trace right pleural effusion. MRI Spine Cervical w/ + w/o Contrast Result Date: November 17, 2023 Verified By: AR PRIETO MD CLINICAL STATEMENT: IMPRESSION: Multilevel degenerative changes of the spine as above. No abnormal spinalcord signal orabnormal enhancement. MRI Brain w/ + w/o Contrast Result Date: November 17, 2023 Verified By: AR PRIETO MD CLINICAL STATEMENT: IMPRESSION: No acute intracranial abnormality. I have personally reviewed the images of this examination and agree with theresident's findings and interpretation. IR Aspiration/Drainage Result Date: November 16, 2023 Verified By: MAXINE FORD MD CLINICAL STATEMENT: IMPRESSION: 1. Successful liver biopsy and aspiration. Pus was aspirated suggestinglesion to be a complex abscess.2. Successful image guided intrahepatic pigtail drainage catheter placement x2.3. Each catheter and bag should be flushed with 10 mL sterile normal salineTID as inpatient and then once a day after discharge.4. Given solid organ location of the drain, cannot be removed for at least3-4 weeks until mature tract forms to prevent bleeding and/or bile leak.5. Recommend removal once daily output 10 ml or less and resolution on followup CT.6. Removal has to be done under fluoroscopy over the wire given intrahepaticlocation. US Abdomen Limited Result Date: November 14, 2023 Verified By: VÍCTOR CLEMENT MD CLINICAL STATEMENT: IMPRESSION: Large complex liver lesion. The liver abscess should be the primaryconsideration, necrotic neoplasm is possible but less likely. Common duct dilatation. The pancreas is completely obscured. Reactive changes of the gallbladder. No gallstones. CT Abd/Pelvis w/ IV Contrast Only Result Date: November 13, 2023 Verified By: MIREYA MARLEY MD CLINICAL STATEMENT: IMPRESSION: 1. Prominent central and inferior liver abnormality. Necrotic neoplasm andintrahepatic abscesses are the leading considerations.2. Masslike prominence of the head of the pancreas with prominent atrophy ofthe pancreatic body and tail. Focal pancreatitis could have this appearance,although pancreatic malignancy must be strongly considered.3. Hyacinth hepatis adenopathy. This could be reactive, hyperplastic,inflammatory, or neoplastic.4. Small amount of fluid in the lesser sac. CT Angiography Neck w/ Contrast Result Date: November 12, 2023 Verified By: ALYCIA HAWK MD CLINICAL STATEMENT: IMPRESSION: No hemodynamically significant stenosis of either carotid bifurcation. Incidental note of a 6 mm left internal mammary lymph node of unknownclinical significance. Correlate clinically andconsider [id number] as well as correlating with patient history for any evidence ofcancer history, including breast. Degenerative disc disease resulting in areas of suspected mild to moderatespinal canal narrowing. Correlate with any radiculopathy. Periapical lucencies. Dental consultationrecommended. Heterogeneous appearance of the bones which is nonspecific and may be seenwith normal aging, bone marrow reconversion, blood cell disorders or possiblemetabolic disorders. Findings suggestive of acute sinusitis as above. I have personally reviewed the images of this examination and agree with theresident's findings and interpretation. CT Angiography Head w/ Contrast Result Date: November 12, 2023 Verified By: ALYCIA HAWK MD CLINICAL STATEMENT: IMPRESSION: No evidence of major arterial occlusion, aneurysm, or significant stenosis. CT Head or Brain w/o Contrast Result Date: November 12, 2023 Verified By: AR PRIETO MD CLINICAL STATEMENT: IMPRESSION: No acute intracranial hemorrhage. Small chronic appearing insult in the right posteriortemporal-occipitallobe. Chronic appearing small insult in the right thalamus. XR Chest 1 View Result Date: November 12, 2023 Verified By: MIREYA MARLEY MD CLINICAL STATEMENT: IMPRESSION: Hypoventilatory changes, no other acute finding. Objective Vitals and Measurements T: 36.9 C (Oral) TMIN: 36.5 C (Oral) TMAX: 36.9 C (Oral) HR: 53 (Monitored) RR: 16 BP: 113/82 SpO2:96% Weight Dosing Weight: 102.5 kg (11/20/23) Dosing Weight: 99 kg (11/12/23) Please see today's progress note Code Status Code Status - Ordered -- 11/12/23 21:55:00 EDT, Full Code, Constant Order Admission Date 11/12/23 Discharge Date 11/22/23 Patient Instructions You are being transferred to 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 Your drains must stay in place for least 3 to 4 weeks to allow for adequate tract formation. After this period, If you have very little output, drains can be removed. Follow-up with interventional radiology for removal of these drains. Lastly recommend follow-up with follow-up with neurology due to presenting symptoms. We recommend aspirin out of caution. We recommend a 30-day CardioNet monitor on discharge. Medications New Prescription acetaminophen (Tylenol 325 mg oral capsule)650 Milligram by mouth every 4 hours as needed Temperature greater than 38.5 degrees C. aspirin (aspirin 81 mg oral delayed release tablet)1 tab(s) by mouth once a day. enoxaparin (Lovenox)40 Milligram Subcutaneous once a day. ketotifen ophthalmic (ketotifen 0.025% ophthalmic solution)2 Drops Ophthalmic every 12 hours. piperacillin-tazobactam (Zosyn)3.375 gram(s) IV Piggyback every 8 hours. Changed insulin glargine (Lantus 100 units/mL10 ml vial solution)16 unit(s) Subcutaneous (INT) daily at bedtime. insulin lispro (HumaLOG) (HumaLOG 100 units/mL subcutaneous solution)Give 0-10 units/dose Subcutaneous three (3) times a day before meals. insulin lispro (HumaLOG) (HumaLOG KwikPen 100 units/mL injectable PEN)5 unit(s) Subcutaneous three (3) times a day before meals. Unchanged levocetirizine (Xyzal 5 mg oral tablet)1 tab(s) by mouth once a day. metFORMIN (metFORMIN 1000 mg oral tablet (IR))1 tab(s) by mouth two (2) times a day. montelukast (montelukast 10 mg oral tablet)1 tab(s) by mouth once a day. rosuvastatin (rosuvastatin 40 mg oral tablet)1 tab(s) by mouth once a day. sertraline (sertraline 50 mg oral tablet)1 tab(s) by mouth once a day. traZODone (traZODone 100 mg oral tablet)1 tab(s) by mouth daily at bedtime. Discontinued ciprofloxacin (ciprofloxacin 500 mg oral tablet)1 tab(s) by mouth two (2) times a day for 5 Days. Follow Up Follow Up with SYLWIA DUMONT BA, MD, Infectious Disease, Infectious Disease Group When:In 4 weeks Where:[facility] [id number] [place] [address]- Follow Up with [facility] When:In 4 weeks Where:[address] [place] [address]- Follow Up with SMITH MCKEON MD When:In 8 weeks Where:[address] [facility] [place] [address]- [phone] Follow Up with MAGO ELLIOTT When:Within 3-7 days Where:[address] [facility] [address] [place] [address]- Business (1) Additional Information: Please call the office to schedule a follow-up appointment. Follow Up with LINDSEY PEREZ MD When:In 4 weeks Where:[address] [facility] [place] [address]- [phone] Follow Up with [facility] [phone] When:Within 1-2 days Follow Up with [facility] will supply IV infusions, any questions, Please call [phone] When:Within 1-2 days Follow Up with MAXINE OFRD MD, [facility] Where:[address] [facility] [place] [address] [phone] Additional Information: As needed, call [phone] with questions regarding your abscess drainage catheters. Plan for a follow up in [address] scan and drainage catheter evaluation at [facility]. Follow Up Appointments Transfer of Care OT - Ordered -- Reason for therapy: Generalized weakness, 11/22/23 15:29:00 EDT Transfer of Care PT - Ordered -- Reason for therapy: Generalized weakness, 11/22/23 15:29:00 EDT Follow Up Labs/Studies Discharge Labs Transfer of Care Labwork - Ordered -- CBC,CMP,ESR,CRP, Chronic antibiotics, Results Notify to: SYLWIA DUMONT BA, MD, Weekly, every Monday while on antibiotics (through December 14, 2023), 11/22/23 15:29:00 EDT Discharge Studies No Follow-up Studies Discharge Diet Transfer of Care Diet - Ordered -- Type of Diet: Regular Diet, Fats limit: Low, 11/22/23 15:29:00 EDT Discharge Activity Transfer of Care Activity - Ordered -- Activity As Tolerated, 11/22/23 15:29:00 EDT Condition on Discharge Stable Readmission Risk/Palliative Score No qualifying data available. Discharge Disposition [facility] Information Provided To Patient Time Spent >35 minutes with >50% of the time spent counseling patient and/or coordinating care Digitally Signed by JARED BREWSTER DO on 11/22/2023 03:34 PM [id number] Note Date of Service 11/22/23 Chief Complaint left upper extremity and left facial numbness, abdominal pain (see note from 11/20/2023 for full summary) Subjective Patient sleepy today but easily arousable. Reports improvement in his eye itching with the antihistamine drops. Continues to have some pain from his drain. No acute change overnight. Reports all concerns are being addressed. was present, all questions answered to the best my ability. Objective Vitals and Measurements T: 36.7 C (Oral) TMIN: 36.4 C (Oral) TMAX: 36.7 C (Oral) HR: 64 RR: 18 BP: 107/68 SpO2: 94% Intake and Output 7AM Yesterday to 7AM Today Intake and Output (Last 24 hours) Intake Oral Intake 940.00 Output Surgical Drain, Tube Output: 75.00 Urine Voided 2700.00 Stool Count 0.00 Urine Count 2.00 Total Summary Total Intake 940.00 Total Output 2775.00 Fluid Balance -1835.00 Physical Exam Constitutional - well nourished, alert, no gross deformities Head - atraumatic, normocephalic Eyes - Pupils equal, round, reactive to light, no conjunctival injection, extra ocular movements grossly intact, no scleral icterus Ears, Nose, and Throat - trachea midline no lesions, masses Respiratory - Clear to auscultation without rales, rhonchi, wheezing or diminished breath sounds Cardiovascular - regular rate and rhythm without murmurs. Normal S1 and S2. No cyanosis or edema Gastrointestinal (Abdomen) - Bowel sounds present. Soft, abdominal scar present, mild ascites, drain in place Musculoskeletal - no obvious deformity, swelling, or clubbing. Skin: Right upper extremity PICC line in place, skin normal color, texture and turgor with no lesions or eruptions Weight Dosing Weight: 102.5 kg (11/20/23) Dosing Weight: 99 kg (11/12/23) Medications Medications (27) Active Scheduled: (14) aspirin 81 mg EC 81 mg 1 tab(s), Oral, qDay enoxaparin 40 mg/ 0.4mL syringe 40 mg 0.4 mL, Subcutaneous, qDay insulin glargine 16 unit(s) 0.16 mL, Subcutaneous (INT), qHS insulin lispro 100 units/mL Soln (3 mL) 5 unit(s) 0.05 mL, Subcutaneous, TIDAC insulin lispro 100 units/mL Soln (3 mL) Give 0-10 units/dose, Subcutaneous, TIDAC ketotifen ophthalmic 0.025% (ketotifen fumarate 0.035%) Solution 2 drop(s), Ophthalmic, q12h lidocaine 1% (MPF) 2 mL vial pf 30 mg 3 mL, Intradermal, prep pharm loratadine 10 mg Tablet 10 mg 1 tab(s), Oral, qDay metformin 500 mg Tablet 1,000 mg 2 tab(s), Oral, BID montelukast 10 mg Tablet 10 mg 1 tab(s), Oral, qDay piperacillin-tazobactam PMX 3.375 gram(s) 50 mL, IV Piggyback, q8hr rosuvastatin 20 mg tablet 40 mg 2 tab(s), Oral, qDay sertraline 50 mg tablet 50 mg 1 tab(s), Oral, qDay traZODONE 100 mg Tablet 100 mg 1 tab(s), Oral, qHS Continuous: (0) PRN: (13) acetaminophen 325 mg Tablet 650 mg 2 tab(s), Oral, q4h acetaminophen 650 mg Suppository 650 mg 1 supp, Rectal, q4h Al hydrox/Mg hydrox/simethicone 200-200-20 mg/5 mL Susp UD 30 mL, Oral, q2h bisacodyl 5 mg EC tablet 10 mg 2 tab(s), Oral, qDay dextrose 50% Solution Disp syringe 50 mL 12.5 gram(s) 25 mL, IV Push, AsDirected docusate-senna (Senokot S) 50 mg-8.6 mg Tablet 1 tab(s), Oral, BID HYDROmorphone 0.5 mg/0.5 mL PF syringe 0.5 mg 0.5 mL, IV Push, q3h hydroxyzine pamoate 50 mg capsule 50 mg 1 cap(s), Oral, TID melatonin 3 mg tablet 3 mg 1 tab(s), Oral, qHS ocular lubricant preserved Soln 15 mL 1 drop(s), Eyes, both, BID ondansetron 2 mg/ 1 mL 2 mL INJ 4 mg 2 mL, IV Push, q4h oxyCODONE 10 mg Tab (Immediate Release) 10 mg 1 tab(s), Oral, q4h oxycodone 5 mg tablet (immediate release) 5 mg 1 tab(s), Oral, q4h Lab Results 11/21 05:19 WBC: 8.4 Hgb: 11.3 L Hct: 34.6 L Platelet: 496 H Neutrophil %: 71.1 Protime: 12.7 PT International Ratio: 1.1 Glucose Level: 182 H Sodium Level: 139 Potassium Level: 4.7 BUN: 11.0 Creatinine Lvl (s): 0.86 11/20 14:27 WBC: 8.4 Hgb: 10.8 L Hct: 32.4 L Platelet: 462 H Neutrophil %: 71.5 Glucose Level: 136 H Sodium Level: 139 Potassium Level: 4.1 BUN: 12.0 Creatinine Lvl (s): 0.87 EKG No qualifying data available. Assessment/Plan Acute on chronic pancreatitis Prominent pancreatic head, abnormal MRI Left mammary lymph node (follows outpatient) Poor dentition with multiple dental caries Diabetes, A1c 11.2 Hepatic lesion (abscess, strep intermedius) Hyponatremia, hypotonic, resolved Alcohol use CVA, likely chronic Anxiety Due to significant anxiety, patient was seen by behavioral health. Did not recommend any changes tomedications. Seen by neurology who recommends aspirin alone. I also recommend 30-day heart monitor on discharge and follow-up with neurology in 2 to 4 weeks. MRI brain/MRI cervical spine shows no significant findings. Does have chronic degenerative changes in neck which can be followed as outpatient. Oncology following and waiting on imaging for further recommendations. Fortunately AFP/CA 19-9 levels are normal. Abdominal MRI completed 11/19/2023. MRI also shows possible pancreatic mass suspiciousfor "mass forming pancreatitis vs. pancreatic neoplasm" - would recommend further evaluation with inpatient EUS. Transfer to pending. Gastroenterology is following for his acute on chronic pancreatitis. Etiology likely alcohol. Seemsto be improving. Now tolerating diet. At baseline. Infectious disease following. Drain has been placed by IR on 11/16/2023. Liver lesion does appear glenda abscess. Continue Zosyn. IV antibiotics x 4 weeks. PICC line placed 11/18/2023. Cultures growing strep intermedius. Patient's sugars remain elevated, increased Lantus to 16 units Constipation has resolved. Bowel regimen can be transition to as needed. Antihistamine eyedrop for eye irritation *-> IR following due to inferior drain pain/leaking. Possible IR procedure today. Hold flushes at this time. Anticipated Date of Discharge Pending transfer to [facility] for further workup/EUS due to abnormal MRI findings for any occult malignancy. Possible IR procedure today due to pain coming from inferior drain. *I did call [facility] [employer]. They confirmed that patient was on the list and remains okay for transfer. Unknown timeframe regarding bed Digitally Signed by JARED BREWSTER DO on 11/22/2023 10:26 AM [facility] [id number] Oncology Progress note Subjective In the abdomen Decreased appetite Weakness Objective Vitals and Measurements T: 36.5 C (Oral) TMIN: 36.4 C (Oral) TMAX: 36.8 C (Oral) HR: 64 RR: 18 BP: 101/76 SpO2: 94% Intake and Output 7AM Yesterday to 7AM Today Intake and Output (Last 24 hours) Intake Oral Intake 1594.00 Output Surgical Drain, Tube Output: 125.00 Urine Voided 2050.00 Stool Count 0.00 Urine Count 2.00 Total Summary Total Intake 1594.00 Total Output 2175.00 Fluid Balance -581.00 Physical Exam 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 Respiratory: No breathing difficulty Weight Dosing Weight: 102.5 kg (11/20/23) Dosing Weight: 99 kg (11/12/23) Medications Medications (27) Active Scheduled: (14) aspirin 81 mg EC 81 mg 1 tab(s), Oral, qDay enoxaparin 40 mg/ 0.4mL syringe 40 mg 0.4 mL, Subcutaneous, qDay insulin glargine 16 unit(s) 0.16 mL, Subcutaneous (INT), qHS insulin lispro 100 units/mL Soln (3 mL) 5 unit(s) 0.05 mL, Subcutaneous, TIDAC insulin lispro 100 units/mL Soln (3 mL) Give 0-10 units/dose, Subcutaneous, TIDAC ketotifen ophthalmic 0.025% (ketotifen fumarate 0.035%) Solution 2 drop(s), Ophthalmic, q12h lidocaine 1% (MPF) 2 mL vial pf 30 mg 3 mL, Intradermal, prep pharm loratadine 10 mg Tablet 10 mg 1 tab(s), Oral, qDay metformin 500 mg Tablet 1,000 mg 2 tab(s), Oral, BID montelukast 10 mg Tablet 10 mg 1 tab(s), Oral, qDay piperacillin-tazobactam PMX 3.375 gram(s) 50 mL, IV Piggyback, q8hr rosuvastatin 20 mg tablet 40 mg 2 tab(s), Oral, qDay sertraline 50 mg tablet 50 mg 1 tab(s), Oral, qDay traZODONE 100 mg Tablet 100 mg 1 tab(s), Oral, qHS Continuous: (0) PRN: (13) acetaminophen 325 mg Tablet 650 mg 2 tab(s), Oral, q4h acetaminophen 650 mg Suppository 650 mg 1 supp, Rectal, q4h Al hydrox/Mg hydrox/simethicone 200-200-20 mg/5 mL Susp UD 30 mL, Oral, q2h bisacodyl 5 mg EC tablet 10 mg 2 tab(s), Oral, qDay dextrose 50% Solution Disp syringe 50 mL 12.5 gram(s) 25 mL, IV Push, AsDirected docusate-senna (Senokot S) 50 mg-8.6 mg Tablet 1 tab(s), Oral, BID HYDROmorphone 0.5 mg/0.5 mL PF syringe 0.5 mg 0.5 mL, IV Push, q3h hydroxyzine pamoate 50 mg capsule 50 mg 1 cap(s), Oral, TID melatonin 3 mg tablet 3 mg 1 tab(s), Oral, qHS ocular lubricant preserved Soln 15 mL 1 drop(s), Eyes, both, BID ondansetron 2 mg/ 1 mL 2 mL INJ 4 mg 2 mL, IV Push, q4h oxyCODONE 10 mg Tab (Immediate Release) 10 mg 1 tab(s), Oral, q4h oxycodone 5 mg tablet (immediate release) 5 mg 1 tab(s), Oral, q4h Lab Results 11/20 14:27 WBC: 8.4 Hgb: 10.8 L Hct: 32.4 L Platelet: 462 H Neutrophil %: 71.5 Glucose Level: 136 H Sodium Level: 139 Potassium Level: 4.1 BUN: 12.0 Creatinine Lvl (s): 0.87 EKG No qualifying data available. Assessment/Plan Masses in the pancreas and liver Patient reported pain in the mid upper abdomen for last 1 month 40 pound weight loss in the last 2 months Patient denies seeing any blood in the stools 11/12/2020 CT scan of abdomen and pelvis were done Prominent central and inferior liver lesions were seen. Possible causes included necrotic neoplasm, abscess. Masslike prominence of the head of the pancreas was seen Hyacinth hepatis adenopathy was noted. Patient was evaluated by gastroenterology Findings were suspicious for malignant process considering abdominal pain and weight loss in 2 months Imaging studies were worrisome for malignant process Tumor marker non diagnostic 11/16/2023: Needle biopsy and aspiration of the liver mass was performed. Pus was drained Specimen was obtained for pathology. Drain was placed Pathology: No evidence of malignancy. Findings were indicative of abscess 11/19/2023 MRI of the pancreas and liver was performed 4 cm mass in the head of pancreas Liver masses were considered to be related to abscess Hyacinth hepatis lymphadenopathy up to 3 cm in size Patient will likely benefit from EUS guided biopsy of the pancreatic mass This can be done at a tertiary care center. Patient may be transferred to [facility] Patient is agreeable to do that Further recommendations will be made after the biopsy Digitally Signed by LINDSEY PEREZ MD on 11/21/2023 10:53 PM [facility] [id number] Note Date of Service 11/21/23 Chief Complaint left upper extremity and left facial numbness, abdominal pain (see note from 11/20/2023 for full summary) Subjective Patient seen and examined. Reports some itching in his left eye. Also reports some significant painwhen flushing his second drain. Otherwise no acute concerns or complaints today. No fevers or chills. Objective Vitals and Measurements T: 36.6 C (Oral) TMIN: 36.4 C (Oral) TMAX: 36.8 C (Oral) HR: 67 RR: 18 BP: 103/74 SpO2: 96% Intake and Output 7AM Yesterday to 7AM Today Intake and Output (Last 24 hours) Intake Oral Intake 1134.00 Output Surgical Drain, Tube Output: 75.00 Urine Voided 850.00 Stool Count 0.00 Urine Count 1.00 Total Summary Total Intake 1134.00 Total Output 925.00 Fluid Balance 209.00 Physical Exam Constitutional - well nourished, alert, no gross deformities Head - atraumatic, normocephalic Eyes - Pupils equal, round, reactive to light, no conjunctival injection, extra ocular movements grossly intact, no scleral icterus Ears, Nose, and Throat - trachea midline no lesions, masses Respiratory - Clear to auscultation without rales, rhonchi, wheezing or diminished breath sounds Cardiovascular - regular rate and rhythm without murmurs. Normal S1 and S2. No cyanosis or edema Gastrointestinal (Abdomen) - Bowel sounds present. Soft, abdominal scar present, mild ascites, drain in place Musculoskeletal - no obvious deformity, swelling, or clubbing. Skin: Right upper extremity PICC line in place, skin normal color, texture and turgor with no lesions or eruptions Weight Dosing Weight: 102.5 kg (11/20/23) Dosing Weight: 99 kg (11/12/23) Medications Medications (27) Active Scheduled: (14) aspirin 81 mg EC 81 mg 1 tab(s), Oral, qDay enoxaparin 40 mg/ 0.4mL syringe 40 mg 0.4 mL, Subcutaneous, qDay insulin glargine 16 unit(s) 0.16 mL, Subcutaneous (INT), qHS insulin lispro 100 units/mL Soln (3 mL) 5 unit(s) 0.05 mL, Subcutaneous, TIDAC insulin lispro 100 units/mL Soln (3 mL) Give 0-10 units/dose, Subcutaneous, TIDAC ketotifen ophthalmic 0.025% (ketotifen fumarate 0.035%) Solution 2 drop(s), Ophthalmic, q12h lidocaine 1% (MPF) 2 mL vial pf 30 mg 3 mL, Intradermal, prep pharm loratadine 10 mg Tablet 10 mg 1 tab(s), Oral, qDay metformin 500 mg Tablet 1,000 mg 2 tab(s), Oral, BID montelukast 10 mg Tablet 10 mg 1 tab(s), Oral, qDay piperacillin-tazobactam PMX 3.375 gram(s) 50 mL, IV Piggyback, q8hr rosuvastatin 20 mg tablet 40 mg 2 tab(s), Oral, qDay sertraline 50 mg tablet 50 mg 1 tab(s), Oral, qDay traZODONE 100 mg Tablet 100 mg 1 tab(s), Oral, qHS Continuous: (0) PRN: (13) acetaminophen 325 mg Tablet 650 mg 2 tab(s), Oral, q4h acetaminophen 650 mg Suppository 650 mg 1 supp, Rectal, q4h Al hydrox/Mg hydrox/simethicone 200-200-20 mg/5 mL Susp UD 30 mL, Oral, q2h bisacodyl 5 mg EC tablet 10 mg 2 tab(s), Oral, qDay dextrose 50% Solution Disp syringe 50 mL 12.5 gram(s) 25 mL, IV Push, AsDirected docusate-senna (Senokot S) 50 mg-8.6 mg Tablet 1 tab(s), Oral, BID HYDROmorphone 0.5 mg/0.5 mL PF syringe 0.5 mg 0.5 mL, IV Push, q3h hydroxyzine pamoate 50 mg capsule 50 mg 1 cap(s), Oral, TID melatonin 3 mg tablet 3 mg 1 tab(s), Oral, qHS ocular lubricant preserved Soln 15 mL 1 drop(s), Eyes, both, BID ondansetron 2 mg/ 1 mL 2 mL INJ 4 mg 2 mL, IV Push, q4h oxyCODONE 10 mg Tab (Immediate Release) 10 mg 1 tab(s), Oral, q4h oxycodone 5 mg tablet (immediate release) 5 mg 1 tab(s), Oral, q4h Lab Results 11/20 14:27 WBC: 8.4 Hgb: 10.8 L Hct: 32.4 L Platelet: 462 H Neutrophil %: 71.5 Glucose Level: 136 H Sodium Level: 139 Potassium Level: 4.1 BUN: 12.0 Creatinine Lvl (s): 0.87 EKG No qualifying data available. Assessment/Plan Acute on chronic pancreatitis Prominent pancreatic head, abnormal MRI Left mammary lymph node (follows outpatient) Poor dentition with multiple dental caries Diabetes, A1c 11.2 Hepatic lesion (abscess, strep intermedius) Hyponatremia, hypotonic, resolved Alcohol use CVA, likely chronic Anxiety Due to significant anxiety, patient was seen by behavioral health. Did not recommend any changes tomedications. Seen by neurology who recommends aspirin alone. I also recommend 30-day heart monitor on discharge and follow-up with neurology in 2 to 4 weeks. MRI brain/MRI cervical spine shows no significant findings. Does have chronic degenerative changes in neck which can be followed as outpatient. Oncology following and waiting on imaging for further recommendations. Fortunately AFP/CA 19-9 levels are normal. Abdominal MRI completed 11/19/2023. MRI also shows possible pancreatic mass suspiciousfor "mass forming pancreatitis vs. pancreatic neoplasm" - would recommend further evaluation with inpatient EUS. Transfer to pending. Gastroenterology is following for his acute on chronic pancreatitis. Etiology likely alcohol. Seemsto be improving. Now tolerating diet. At baseline. Infectious disease following. Drain has been placed by IR on 11/16/2023. Liver lesion does appear glenda abscess. Continue Zosyn. IV antibiotics x 4 weeks. PICC line placed 11/18/2023. Cultures growing strep intermedius. Patient's sugars remain elevated, increased Lantus to 16 units Constipation has resolved. Bowel regimen can be transition to as needed. Antihistamine eyedrop for eye irritation *IR consulted due to inferior drain pain/leaking. Keep patient n.p.o. at midnight for potential IR procedure tomorrow. Hold flushes at this time. Anticipated Date of Discharge Pending transfer to [facility] for further workup/EUS due to abnormal MRI findings for any occult malignancy. Possible IR procedure tomorrow due to pain coming from inferior drain. Digitally Signed by JARED BREWSTER DO on 11/21/2023 05:20 PM [id number] Interventional radiology Progress note Interventional Radiology Progress Note IR Procedure 1. CT guided liver lesion biopsy/ aspiration - 11/16/[address] guided intrahepatic abscess drainage catheter insertion x 2 (10 Fr) - 11/16/2023 Subjective 62-year-old male with intrahepatic abscesses requiring drainage catheter insertion on 11/16/2023. Patient presented to the ED on 11/12/2023 with left sided facial symptoms and abdominal pain. He wasadmitted for CVA rule out. While admitted, the patient underwent a CT of the abdomen/ pelvis which revealed lesions within the central and inferior portion of the liver - necrotic neoplasms vs intrahepatic abscess. IR was asked for biopsy and possible drain placement. Noted on the CT was a mass at the pancreatic head as well. Biopsy/ aspiration of the intrahepatic lesions was positive for geeta pus, therefore 2 intrahepatic drains were placed on 11/16/2023. Patient states the inferior drain has become more painful not only with movement, but with flushing. He also reports leaking from the inferior tube with flushing as well. He reports no issues with the superior drainage catheter. He reports that both drains continue to drain a serosanguineous fluid. Physical Exam Vitals: Tyfdihdbbpx40.6 (15:01) Systolic Blood Qnxgbrww675 (15:01) Diastolic Blood Urjwgnpx68 (15:01) Pulse67 (15:01) ZzM424 (15:01) Respiratory RateNo result General: Alert, nontoxic, no acute distress. Sitting comfortably at bedside RUQ: 10 Fr intrahepatic drainage catheters are present. Dressing are clean and dry, but not intact.Old dressings were removed. Superior drain is nontender to palpation. Easily flushes and aspirates with 10mL normal saline without pain or discomfort. The inferior drain is tender with movement of the catheter. While this drain easily aspirates, there is pain and leaking at the insertion site with only flushing 2 mL normal saline. Both insertion sites were redressed with gauze and tegaderm. The remainder of the physical exam is noncontributory. Labs Relevant labs reviewed. Pathology report is consistent with pus rather than malignancy in the biopsy samples obtained at time of drain placement Output Intake and Output (Last 24 hours) Intake Oral Intake 1134.00 Output Surgical Drain, Tube Output: 75.00 Urine Voided 850.00 Stool Count 0.00 Urine Count 1.00 Total Summary Total Intake 1134.00 Total Output 925.00 Fluid Balance 209.00 Imaging MRI Liver Result Date: November 19, 2023 Verified By: MELISSA HLOLOWAY MD CLINICAL STATEMENT: IMPRESSION: 1. A 4.1 x 2.9 cm mass centered upon the pancreatic head, with mildlyheterogeneous low level enhancement. There is no definite associatedrestricted diffusion. The remainder of the pancreas is largely atrophic.Considerations include but are not limited to mass forming pancreatitis andpancreatic neoplasm.2. Heterogeneous enlarged right hepatic masses, containing a surgical drain.Findings are most consistent with abscess formation. Necrotic neoplasmcannot be entirely excluded.3. Beadedappearance of the common bile duct, without biliary ductaldilatation. Findings raise concern for cho langitis (i.e.Infectious/ischemic/inflammatory).4. Hyacinth hepatis lymphadenopathy.5. Trace right pleural effusion. IR Aspiration/Drainage Result Date: November 16, 2023 Verified By: MAXINE FORD MD CLINICAL STATEMENT: IMPRESSION: 1. Successful liver biopsy and aspiration. Pus was aspirated suggestinglesion to be a complex abscess.2. Successful image guided intrahepatic pigtail drainage catheter placement x2.3. Each catheter and bag should be flushed with 10 mL sterile normal salineTID as inpatient and then once a day after discharge.4. Given solid organ location of the drain, cannot be removed for at least3-4 weeks until mature tract forms to prevent bleeding and/or bile leak.5. Recommend removal once daily output 10 ml or less and resolution on followup CT.6. Removal has to be done under fluoroscopy over the wire given intrahepaticlocation. US Abdomen Limited Result Date: November 14, 2023 Verified By: VÍCTOR CLEMENT MD CLINICAL STATEMENT: IMPRESSION: Large complex liver lesion. The liver abscess should be the primaryconsideration, necrotic neoplasm is possible but less likely. Common duct dilatation. The pancreas is completely obscured. Reactive changes of the gallbladder. No gallstones. CT Abd/Pelvis w/ IV Contrast Only Result Date: November 13, 2023 Verified By: MIREYA MARLEY MD CLINICAL STATEMENT: IMPRESSION: 1. Prominent central and inferior liver abnormality. Necrotic neoplasm andintrahepatic abscesses are the leading considerations.2. Masslike prominence of the head of the pancreas with prominent atrophy ofthe pancreatic body and tail. Focal pancreatitis could have this appearance,although pancreatic malignancy must be strongly considered.3. Hyacinth hepatis adenopathy. This could be reactive, hyperplastic,inflammatory, or neoplastic.4. Small amount of fluid in the lesser sac. Assessment/Treatment Plan 62-year-old male with undetermined pancreatic mass and intrahepatic abscesses Day #5 post 2 intrahepatic abscess drainage catheter insertions. Due to the complaints detailed above in regards to the pain and leaking at the inferior drainage catheter insertion site, will plan to evaluate in IR for possible intervention. In the meantime, will hold off flushing the drainage catheters. Patient is awaiting a bed for transfer to . IR Follow Up Plan - Order placed for patient to be NPO at midnight for potential IR procedure tomorrow - Cancelled orders to flush drainage catheters TID at this time Jae Villarreal PA-C Interventional Radiology Pager: [phone] IR dept: x [phone] Available on [employer] Digitally Signed by JAE VILLARREAL PA-C on 11/21/2023 04:08 PM Digitally Signed by CHUCKIE VOSS MD on 11/21/2023 04:18 PM [facility] [id number] Interventional radiology Progress note I called and spoke to Emiliano on 4h. I told her to make sure that the patient is made NPO tonight for possible drain cath eval tomorrow. Will re-assess in the am with Dr. Voss. Digitally Signed by Angelic Dia on 11/21/2023 03:11 PM [facility] [id number] Note. MICRO - Microbiology PROCEDURE: Culture Body Fluid with Gram Stain [*1] SOURCE: Body Fluid, BODY SITE: Abdomen Miscellaneous COLLECTED DATE/TIME: 11/16/2023 14:30 EDT RECEIVED DATE/TIME: 11/16/2023 15:32 EDT START DATE/TIME: 11/16/2023 15:32 EDT FREE TEXT SOURCE: Abscess from right abdomen FINAL REPORTS Final Report [] Verified Date/Time/Personnel: 11/21/2023 11:34 EDT Few Streptococcus intermedius Unable to perform sensitivity testing due to the fastidious nature of the organism. No anaerobes isolated at 5 days. PRELIMINARY REPORTS Preliminary Report [] Verified Date/Time/Personnel: 11/18/2023 12:05 EDT Few Streptococcus intermedius Unable to perform sensitivity testing due to the fastidious nature of the organism. No anaerobes isolated to date. Preliminary Report [] Verified Date/Time/Personnel: 11/16/2023 16:59 EDT Culture has been received in lab and is no growth to date. Routine cultures are held for 5 days. STAINS GS [] Verified Date/Time/Personnel: 11/16/2023 16:29 EDT Sedimented 4+ White Blood Cells Rare Gram Positive Cocci SUSCEPTIBILITY RESULTS Streptococcus intermedius Antibiotic MARÍA ELENA Dilut MARÍA ELENA Inter ID Panel Not Not Applicable Applicable Performing Locations *1: This test was performed at: [address], [facility] , [facility] ([place])11-20-2023 Note. MICRO - Microbiology PROCEDURE: Blood Culture (bacterial) [*1] SOURCE: Blood BODY SITE: Anticubital, Right COLLECTED DATE/TIME: 11/15/2023 18:41 EDT RECEIVED DATE/TIME: 11/15/2023 19:12 EDT START DATE/TIME: 11/15/2023 19:12 EDT FREE TEXT SOURCE: FINAL REPORTS Final Report [] Verified Date/Time/Personnel: 11/20/2023 19:59 EDT Blood Culture: No Growth at 5 days. PRELIMINARY REPORTS Preliminary Report [] Verified Date/Time/Personnel: 11/15/2023 19:59 EDT Culture has been received in lab and is no growth to date. Routine cultures are held for 5 days. Performing Locations *1: This test was performed at: [address], [id number] [place], [place] [address]11-20-2023 Note. MICRO - Microbiology PROCEDURE: Blood Culture (bacterial) [*1] SOURCE: Blood BODY SITE: Anticubital, Left COLLECTED DATE/TIME: 11/15/2023 18:41 EDT RECEIVED DATE/TIME: 11/15/2023 19:12 EDT START DATE/TIME: 11/15/2023 19:12 EDT FREE TEXT SOURCE: FINAL REPORTS Final Report [] Verified Date/Time/Personnel: 11/20/2023 19:59 EDT Blood Culture: No Growth at 5 days. PRELIMINARY REPORTS Preliminary Report [] Verified Date/Time/Personnel: 11/15/2023 19:59 EDT Culture has been received in lab and is no growth to date. Routine cultures are held for 5 days. Performing Locations *1: This test was performed at: [address], [facility] , [facility])11-20-2023 Note Date of Service 11/20/23 Chief Complaint 62-year-old male medical history chronic pancreatitis since 2018 has been intermittently having issues with flareups. This started over in [place] where he had surgical intervention patient cannot recall what type of surgery he had at that time. Patient recently moved back to [facility] and had been going to [facility] without much improvement. Patient has been having abdominal pain for the past several weeks patient did now have left upper extremity and left facial numbness and grewconcerned thus presenting to the hospital for possible stroke. Patient was evaluated in the emergency department there was concern for stroke CT head was performed showing a small insult to the right thalamus which appeared chronic in nature. Patient admitted to the hospital plan for MRI/MRA and neurology consultation. After admission to the hospital patient continued to have increased abdominal discomfort. Patient CT abdomen pelvis performed which shows necrotic intrahepatic fluid collections concerning for abscess along with possibility of neoplasm patient also had masslike prominence of the head of the pancreas with significant atrophy to the body and tail. Patient will empirically be initiated on Zosyn withconsultation to gastroenterology. Patient being made n.p.o. and started on aggressive IV fluid rehydration. Patient on 11/12 complaining of abdominal pain still having left-sided paresthesias. CBC shows leukocytosis 15.2 on admission with left shift. INR 1.3 UA negative for infection CMP shows mild hyponatremia at 134, low albumin levels, elevated protein 5.6, elevated alk phos of 132 otherwise unremarkable CPK 18 A1c 11.2 Lipase 25 Cholesterol 48, triglycerides 79, HDL 10, LDL 22 Troponin negative x 4 EKG shows sinus rhythm without significant findings (personally reviewed) Chest x-ray completed 11/12/2023 personally reviewed showing no significant findings CT head shows a small chronic appearing insult in the right posterior temporal occipital lobe as well as a chronic appearing insult in the right thalamus CT a neck shows no hemodynamically significant stenosis. An incidental 6 mm left internal mammary lymph node of unknown clinical significance. Recommend outpatient monitoring. He also has degenerative disc disease, periapical lucencies, heterogeneous appearance of his bone, acute sinusitis CT angiography of the head shows no major occlusion, aneurysm or stenosis CT abdomen pelvis shows prominent central and inferior liver abnormality suggesting necrotic neoplasm or intrahepatic abscess. Masslike prominence of the head of the pancreas with prominent atrophy of the pancreatic body and tail. Focal pancreatitis could have this appearance although pancreatic malignancy must be considered. Hyacinth hepatis adenopathy suggesting hyperplastic, inflammatory or neoplastic process. EEG unremarkable Ultrasound abdomen completed 11/14/2023 showing large complex liver lesion suggesting liver abscess.This makes neoplasm less likely. Pancreas obscured. Echocardiogram completed with EF 55 to 60%. Normal wall motion. Normal diastolic function. No shunt. IVC normal size. No significant valvular disease. On 11/16/2023, patient was taken to interventional radiology given the ultrasound findings. Biopsy/drain placement was completed. A large amount of pus was removed. Cultures ended up growing Streptococcus intermedius. Infectious disease reviewed the case. They are recommending IV antibiotics every 8hours (Zosyn) until December 14, 2023. He will need weekly lab work and follow-up with infectious disease as outpatient. With regards to patient's drains, he should follow-up with interventional radiology. They will needto stay in place for minimum of 3 to 4 weeks to allow for adequate mature tract to form to prevent bleeding/bile leak. After that, they can removed when less than 10 mL of output daily. Drains must be removed over wire so IR must complete this task. They cannot be pulled bedside. Due to initial concern for stroke, MRI brain was completed with no acute findings. MRI spine was completed with no acute findings. Neurology believes this is probably a TIA type event or spasm. EEG showed no seizures. Recommends continuing aspirin alone and a 30-day CardioNet on discharge. Will need to follow-up with neurology in 2 to 4 weeks. Lastly gastroenterology is following due to abnormal imaging. We are pending a MRI of the liver to evaluate both liver and pancreas to ensure no malignant process. Tumor markers are unremarkable. If imaging is clear then patient can be discharged with antibiotics. If imaging does show finding, heme-onc should be reconsulted for workup. Patient's pain is likely due to his abscess/chronic pancreatitis. Subjective Patient is at his baseline with regards to pain. He always has chronic pain due to his chronic pancreatitis. Otherwise he reports the lactulose worked. He had 2 bowel movements yesterday. No other complaints or concerns today. Objective Vitals and Measurements T: 36.6 C (Oral) TMIN: 36.5 C (Oral) TMAX: 36.9 C (Oral) HR: 68 RR: 18 BP: 105/65 SpO2: 92% Intake and Output 7AM Yesterday to 7AM Today Intake and Output (Last 24 hours) Intake Oral Intake 1640.00 Supplement Intake 0.00 Output Surgical Drain, Tube Output: 37.00 Urine Voided 4925.00 Stool Count 2.00 Total Summary Total Intake 1640.00 Total Output 4962.00 Fluid Balance -3322.00 Physical Exam Constitutional - well nourished, alert, no gross deformities Head - atraumatic, normocephalic Eyes - Pupils equal, round, reactive to light, no conjunctival injection, extra ocular movements grossly intact, no scleral icterus Ears, Nose, and Throat - trachea midline no lesions, masses Respiratory - Clear to auscultation without rales, rhonchi, wheezing or diminished breath sounds Cardiovascular - regular rate and rhythm without murmurs. Normal S1 and S2. No cyanosis or edema Gastrointestinal (Abdomen) - Bowel sounds present. Soft, abdominal scar present, mild ascites, drain in place Musculoskeletal - no obvious deformity, swelling, or clubbing. Skin: Right upper extremity PICC line in place, skin normal color, texture and turgor with no lesions or eruptions Weight Dosing Weight: 99 kg (11/12/23) Dosing Weight: 99 kg (11/12/23) Medications Medications (28) Active Scheduled: (15) aspirin 81 mg EC 81 mg 1 tab(s), Oral, qDay enoxaparin 40 mg/ 0.4mL syringe 40 mg 0.4 mL, Subcutaneous, qDay insulin glargine 16 unit(s) 0.16 mL, Subcutaneous (INT), qHS insulin lispro 100 units/mL Soln (3 mL) Give 0-10 units/dose, Subcutaneous, TIDAC insulin lispro 100 units/mL Soln (3 mL) 5 unit(s) 0.05 mL, Subcutaneous, TIDAC lidocaine 1% (MPF) 2 mL vial pf 30 mg 3 mL, Intradermal, prep pharm loratadine 10 mg Tablet 10 mg 1 tab(s), Oral, qDay metformin 500 mg Tablet 1,000 mg 2 tab(s), Oral, BID montelukast 10 mg Tablet 10 mg 1 tab(s), Oral, qDay piperacillin-tazobactam PMX 3.375 gram(s) 50 mL, IV Piggyback, q8hr rosuvastatin 20 mg tablet 40 mg 2 tab(s), Oral, qDay sertraline 50 mg tablet 50 mg 1 tab(s), Oral, qDay sodium chloride 0.9% 10 ml syringe randee flush 10 mL, IR Drain, q8h sodium chloride 0.9% 10 ml syringe randee flush 10 mL, IR Drain, q8h traZODONE 100 mg Tablet 100 mg 1 tab(s), Oral, qHS Continuous: (0) PRN: (13) acetaminophen 325 mg Tablet 650 mg 2 tab(s), Oral, q4h acetaminophen 650 mg Suppository 650 mg 1 supp, Rectal, q4h Al hydrox/Mg hydrox/simethicone 200-200-20 mg/5 mL Susp UD 30 mL, Oral, q2h bisacodyl 5 mg EC tablet 10 mg 2 tab(s), Oral, qDay dextrose 50% Solution Disp syringe 50 mL 12.5 gram(s) 25 mL, IV Push, AsDirected docusate-senna (Senokot S) 50 mg-8.6 mg Tablet 1 tab(s), Oral, BID HYDROmorphone 0.5 mg/0.5 mL PF syringe 0.5 mg 0.5 mL, IV Push, q3h hydroxyzine pamoate 50 mg capsule 50 mg 1 cap(s), Oral, TID melatonin 3 mg tablet 3 mg 1 tab(s), Oral, qHS ocular lubricant preserved Soln 15 mL 1 drop(s), Eyes, both, BID ondansetron 2 mg/ 1 mL 2 mL INJ 4 mg 2 mL, IV Push, q4h oxycodone 5 mg tablet (immediate release) 5 mg 1 tab(s), Oral, q4h oxycodone 5 mg tablet (immediate release) 10 mg 2 tab(s), Oral, q4h Lab Results No 36 Hour Lab Data EKG No qualifying data available. Assessment/Plan Acute on chronic pancreatitis Prominent pancreatic head, unable to rule out mass Left mammary lymph node (follows outpatient) Poor dentition with multiple dental caries Diabetes, A1c 11.2 Hepatic lesion (abscess, strep intermedius) Hyponatremia, hypotonic, resolved Alcohol use CVA, likely chronic Anxiety Due to significant anxiety, patient was seen by behavioral health. Did not recommend any changes tomedications. Seen by neurology who recommends aspirin alone. I also recommend 30-day heart monitor on discharge and follow-up with neurology in 2 to 4 weeks. MRI brain/MRI cervical spine shows no significant findings. Does have chronic degenerative changes in neck which can be followed as outpatient. Oncology following and waiting on imaging for further recommendations. Fortunately AFP/CA 19-9 levels are normal. Abdominal MRI completed 11/19/2023. Results pending. Report pending. Gastroenterology is following for his acute on chronic pancreatitis. Etiology likely alcohol. Seemsto be improving. Now tolerating diet. At baseline. Infectious disease following. Drain has been placed by IR on 11/16/2023. Liver lesion does appear glenda abscess. Continue Zosyn. IV antibiotics x 4 weeks. PICC line placed 11/18/2023. Cultures growing strep intermedius. Patient's sugars remain elevated, increased Lantus to 16 units Constipation has resolved. Bowel regimen can be transition to as needed. Anticipated Date of Discharge Unfortunately IV antibiotics cannot be set up until Monday. Pending MRI liver results. Hopefully imaging will be negative for any occult malignancy. If negative patient can be discharged tomorrow after antibiotics are set up. Digitally Signed by JARED BREWSTER DO on 11/20/2023 10:27 AM [facility] [id number] Note Date of Service 11/20/23 Chief Complaint 62-year-old male medical history chronic pancreatitis since 2018 has been intermittently having issues with flareups. This started over in [place] where he had surgical intervention patient cannot recall what type of surgery he had at that time. Patient recently moved back to [facility] andhad been going to [facility] without much improvement. Patient has been having abdominal pain for the past several weeks patient did now have left upper extremity and left facial numbness and grew concerned thus presenting to the hospital for possible stroke. Patient was evaluated in the emergency department there was concern for stroke CT head was performed showing a small insult to the right thalamus which appeared chronic in nature. Patient admitted to the hospital plan for MRI/MRA and neurology consultation. After admission to the hospital patient continued to have increased abdominal discomfort. Patient CT abdomen pelvis performed which shows necrotic intrahepatic fluid collections concerning for abscess along with possibility of neoplasm patient also had masslike prominence of the head of the pancreas with significant atrophy to the body and tail. Patient will empirically be initiated on Zosyn withconsultation to gastroenterology. Patient being made n.p.o. and started on aggressive IV fluid rehydration. Patient on 11/12 complaining of abdominal pain still having left-sided paresthesias. CBC shows leukocytosis 15.2 on admission with left shift. INR 1.3 UA negative for infection CMP shows mild hyponatremia at 134, low albumin levels, elevated protein 5.6, elevated alk phos of 132 otherwise unremarkable CPK 18 A1c 11.2 Lipase 25 Cholesterol 48, triglycerides 79, HDL 10, LDL 22 Troponin negative x 4 EKG shows sinus rhythm without significant findings (personally reviewed) Chest x-ray completed 11/12/2023 personally reviewed showing no significant findings CT head shows a small chronic appearing insult in the right posterior temporal occipital lobe as well as a chronic appearing insult in the right thalamus CT a neck shows no hemodynamically significant stenosis. An incidental 6 mm left internal mammary lymph node of unknown clinical significance. Recommend outpatient monitoring. He also has degenerative disc disease, periapical lucencies, heterogeneous appearance of his bone, acute sinusitis CT angiography of the head shows no major occlusion, aneurysm or stenosis CT abdomen pelvis shows prominent central and inferior liver abnormality suggesting necrotic neoplasm or intrahepatic abscess. Masslike prominence of the head of the pancreas with prominent atrophy of the pancreatic body and tail. Focal pancreatitis could have this appearance although pancreatic malignancy must be considered. Hyacinth hepatis adenopathy suggesting hyperplastic, inflammatory or neoplastic process. EEG unremarkable Ultrasound abdomen completed 11/14/2023 showing large complex liver lesion suggesting liver abscess.This makes neoplasm less likely. Pancreas obscured. Echocardiogram completed with EF 55 to 60%. Normal wall motion. Normal diastolic function. No shunt. IVC normal size. No significant valvular disease. On 11/16/2023, patient was taken to interventional radiology given the ultrasound findings. Biopsy/drain placement was completed. A large amount of pus was removed. Cultures ended up growing Streptococcus intermedius. Infectious disease reviewed the case. They are recommending IV antibiotics every 8hours (Zosyn) until December 14, 2023. He will need weekly lab work and follow-up with infectious disease as outpatient. With regards to patient's drains, he should follow-up with interventional radiology. They will needto stay in place for minimum of 3 to 4 weeks to allow for adequate mature tract to form to prevent bleeding/bile leak. After that, they can removed when less than 10 mL of output daily. Drains must be removed over wire so IR must complete this task. They cannot be pulled bedside. Due to initial concern for stroke, MRI brain was completed with no acute findings. MRI spine was completed with no acute findings. Neurology believes this is probably a TIA type event or spasm. EEG showed no seizures. Recommends continuing aspirin alone and a 30-day CardioNet on discharge. Will need to follow-up with neurology in 2 to 4 weeks. Lastly gastroenterology is following due to abnormal imaging. We are pending a MRI of the liver to evaluate both liver and pancreas to ensure no malignant process. Tumor markers are unremarkable. If imaging is clear then patient can be discharged with antibiotics. If imaging does show finding, heme-onc should be reconsulted for workup. Patient's pain is likely due to his abscess/chronic pancreatitis. Subjective Patient is at his baseline with regards to pain. He always has chronic pain due to his chronic pancreatitis. Otherwise he reports the lactulose worked. He had 2 bowel movements yesterday. No other complaints or concerns today. Objective Vitals and Measurements T: 36.6 C (Oral) TMIN: 36.5 C (Oral) TMAX: 36.9 C (Oral) HR: 68 RR: 18 BP: 105/65 SpO2: 92% Intake and Output 7AM Yesterday to 7AM Today Intake and Output (Last 24 hours) Intake Oral Intake 1640.00 Supplement Intake 0.00 Output Surgical Drain, Tube Output: 37.00 Urine Voided 4925.00 Stool Count 2.00 Total Summary Total Intake 1640.00 Total Output 4962.00 Fluid Balance -3322.00 Physical Exam Constitutional - well nourished, alert, no gross deformities Head - atraumatic, normocephalic Eyes - Pupils equal, round, reactive to light, no conjunctival injection, extra ocular movements grossly intact, no scleral icterus Ears, Nose, and Throat - trachea midline no lesions, masses Respiratory - Clear to auscultation without rales, rhonchi, wheezing or diminished breath sounds Cardiovascular - regular rate and rhythm without murmurs. Normal S1 and S2. No cyanosis or edema Gastrointestinal (Abdomen) - Bowel sounds present. Soft, abdominal scar present, mild ascites, drain in place Musculoskeletal - no obvious deformity, swelling, or clubbing. Skin: Right upper extremity PICC line in place, skin normal color, texture and turgor with no lesions or eruptions Weight Dosing Weight: 99 kg (11/12/23) Dosing Weight: 99 kg (11/12/23) Medications Medications (28) Active Scheduled: (15) aspirin 81 mg EC 81 mg 1 tab(s), Oral, qDay enoxaparin 40 mg/ 0.4mL syringe 40 mg 0.4 mL, Subcutaneous, qDay insulin glargine 16 unit(s) 0.16 mL, Subcutaneous (INT), qHS insulin lispro 100 units/mL Soln (3 mL) Give 0-10 units/dose, Subcutaneous, TIDAC insulin lispro 100 units/mL Soln (3 mL) 5 unit(s) 0.05 mL, Subcutaneous, TIDAC lidocaine 1% (MPF) 2 mL vial pf 30 mg 3 mL, Intradermal, prep pharm loratadine 10 mg Tablet 10 mg 1 tab(s), Oral, qDay metformin 500 mg Tablet 1,000 mg 2 tab(s), Oral, BID montelukast 10 mg Tablet 10 mg 1 tab(s), Oral, qDay piperacillin-tazobactam PMX 3.375 gram(s) 50 mL, IV Piggyback, q8hr rosuvastatin 20 mg tablet 40 mg 2 tab(s), Oral, qDay sertraline 50 mg tablet 50 mg 1 tab(s), Oral, qDay sodium chloride 0.9% 10 ml syringe randee flush 10 mL, IR Drain, q8h sodium chloride 0.9% 10 ml syringe randee flush 10 mL, IR Drain, q8h traZODONE 100 mg Tablet 100 mg 1 tab(s), Oral, qHS Continuous: (0) PRN: (13) acetaminophen 325 mg Tablet 650 mg 2 tab(s), Oral, q4h acetaminophen 650 mg Suppository 650 mg 1 supp, Rectal, q4h Al hydrox/Mg hydrox/simethicone 200-200-20 mg/5 mL Susp UD 30 mL, Oral, q2h bisacodyl 5 mg EC tablet 10 mg 2 tab(s), Oral, qDay dextrose 50% Solution Disp syringe 50 mL 12.5 gram(s) 25 mL, IV Push, AsDirected docusate-senna (Senokot S) 50 mg-8.6 mg Tablet 1 tab(s), Oral, BID HYDROmorphone 0.5 mg/0.5 mL PF syringe 0.5 mg 0.5 mL, IV Push, q3h hydroxyzine pamoate 50 mg capsule 50 mg 1 cap(s), Oral, TID melatonin 3 mg tablet 3 mg 1 tab(s), Oral, qHS ocular lubricant preserved Soln 15 mL 1 drop(s), Eyes, both, BID ondansetron 2 mg/ 1 mL 2 mL INJ 4 mg 2 mL, IV Push, q4h oxycodone 5 mg tablet (immediate release) 5 mg 1 tab(s), Oral, q4h oxycodone 5 mg tablet (immediate release) 10 mg 2 tab(s), Oral, q4h Lab Results No 36 Hour Lab Data EKG No qualifying data available. Assessment/Plan Acute on chronic pancreatitis Prominent pancreatic head, unable to rule out mass Left mammary lymph node (follows outpatient) Poor dentition with multiple dental caries Diabetes, A1c 11.2 Hepatic lesion (abscess, strep intermedius) Hyponatremia, hypotonic, resolved Alcohol use CVA, likely chronic Anxiety Due to significant anxiety, patient was seen by behavioral health. Did not recommend any changes tomedications. Seen by neurology who recommends aspirin alone. I also recommend 30-day heart monitor on discharge and follow-up with neurology in 2 to 4 weeks. MRI brain/MRI cervical spine shows no significant findings. Does have chronic degenerative changes in neck which can be followed as outpatient. Oncology following and waiting on imaging for further recommendations. Fortunately AFP/CA 19-9 levels are normal. Abdominal MRI completed 11/19/2023. Results pending. Report pending. Gastroenterology is following for his acute on chronic pancreatitis. Etiology likely alcohol. Seemsto be improving. Now tolerating diet. At baseline. Infectious disease following. Drain has been placed by IR on 11/16/2023. Liver lesion does appear glenda abscess. Continue Zosyn. IV antibiotics x 4 weeks. PICC line placed 11/18/2023. Cultures growing strep intermedius. Patient's sugars remain elevated, increased Lantus to 16 units Constipation has resolved. Bowel regimen can be transition to as needed. Anticipated Date of Discharge Unfortunately IV antibiotics cannot be set up until Monday. Pending MRI liver results. Hopefully imaging will be negative for any occult malignancy. If negative patient can be discharged tomorrow after antibiotics are set up. Digitally Signed by JARED BREWSTER DO on 11/20/2023 10:27 AM [id number] Infectious disease Progress note Date of Service 11/19/2023 Chief Complaint Liver abscess Subjective Patient with Tmax of 36.7 patient has no new complaints no fevers nausea abdominal pain Objective Vitals and Measurements T: 36.5 C (Oral) TMIN: 36.5 C (Oral) TMAX: 36.7 C (Oral) HR: 77 RR: 16 BP: 110/76 SpO2: 95% Intake and Output 7AM Yesterday to 7AM Today Intake and Output (Last 24 hours) Intake Oral Intake 2040.00 Administration Information 400.00 Supplement Intake 240.00 Output Surgical Drain, Tube Output: 20.00 Urine Voided 2750.00 Stool Count 0.00 Urine Count 2.00 Total Summary Total Intake 2680.00 Total Output 2770.00 Fluid Balance -90.00 Physical Exam Patient is an elderly male noted to be laying in the bed alert and awake able to speak in full sentences HEENT atraumatic normocephalic neck supple first and second heart sound audible abdomen soft and nontender right-sided abdominal drains are in place PICC line in the right upper extremity. Patient overall in no respiratory distress. Weight Dosing Weight: 99 kg (11/12/23) Dosing Weight: 99 kg (11/12/23) Medications Medications (28) Active Scheduled: (16) aspirin 81 mg EC 81 mg 1 tab(s), Oral, qDay enoxaparin 40 mg/ 0.4mL syringe 40 mg 0.4 mL, Subcutaneous, qDay insulin glargine 16 unit(s) 0.16 mL, Subcutaneous (INT), qHS insulin lispro 100 units/mL Soln (3 mL) Give 0-10 units/dose, Subcutaneous, TIDAC insulin lispro 100 units/mL Soln (3 mL) 5 unit(s) 0.05 mL, Subcutaneous, TIDAC lactulose 20 g/30 mL UD cup 20 gram(s) 30 mL, Oral, BID lidocaine 1% (MPF) 2 mL vial pf 30 mg 3 mL, Intradermal, prep pharm loratadine 10 mg Tablet 10 mg 1 tab(s), Oral, qDay metformin 500 mg Tablet 1,000 mg 2 tab(s), Oral, BID montelukast 10 mg Tablet 10 mg 1 tab(s), Oral, qDay piperacillin-tazobactam PMX 3.375 gram(s) 50 mL, IV Piggyback, q8hr rosuvastatin 20 mg tablet 40 mg 2 tab(s), Oral, qDay sertraline 50 mg tablet 50 mg 1 tab(s), Oral, qDay sodium chloride 0.9% 10 ml syringe randee flush 10 mL, IR Drain, q8h sodium chloride 0.9% 10 ml syringe randee flush 10 mL, IR Drain, q8h traZODONE 100 mg Tablet 100 mg 1 tab(s), Oral, qHS Continuous: (0) PRN: (12) acetaminophen 325 mg Tablet 650 mg 2 tab(s), Oral, q4h acetaminophen 650 mg Suppository 650 mg 1 supp, Rectal, q4h Al hydrox/Mg hydrox/simethicone 200-200-20 mg/5 mL Susp UD 30 mL, Oral, q2h bisacodyl 5 mg EC tablet 10 mg 2 tab(s), Oral, qDay dextrose 50% Solution Disp syringe 50 mL 12.5 gram(s) 25 mL, IV Push, AsDirected docusate-senna (Senokot S) 50 mg-8.6 mg Tablet 1 tab(s), Oral, BID HYDROmorphone 0.5 mg/0.5 mL PF syringe 0.5 mg 0.5 mL, IV Push, q3h hydroxyzine pamoate 50 mg capsule 50 mg 1 cap(s), Oral, TID melatonin 3 mg tablet 3 mg 1 tab(s), Oral, qHS ondansetron 2 mg/ 1 mL 2 mL INJ 4 mg 2 mL, IV Push, q4h oxycodone 5 mg tablet (immediate release) 5 mg 1 tab(s), Oral, q4h oxycodone 5 mg tablet (immediate release) 10 mg 2 tab(s), Oral, q4h Lab Results 11/17 05:02 WBC: 7.9 Hgb: 10.1 L Hct: 29.8 L Platelet: 353 Neutrophil %: 76.9 H Protime: 14.6 H PT International Ratio: 1.3 Glucose Level: 137 H Sodium Level: 141 Potassium Level: 4.0 BUN: 6.0 L Creatinine Lvl (s): 0.77 Imaging Results and Diagnostics MRI Spine Cervical w/ + w/o Contrast Result Date: November 17, 2023 Verified By: AR PRIETO MD CLINICAL STATEMENT: IMPRESSION: Multilevel degenerative changes of the spine as above. No abnormal spinalcord signal orabnormal enhancement. MRI Brain w/ + w/o Contrast Result Date: November 17, 2023 Verified By: AR PRIETO MD CLINICAL STATEMENT: IMPRESSION: No acute intracranial abnormality. I have personally reviewed the images of this examination and agree with theresident's findings and interpretation. IR Aspiration/Drainage Result Date: November 16, 2023 Verified By: MAXINE FORD MD CLINICAL STATEMENT: IMPRESSION: 1. Successful liver biopsy and aspiration. Pus was aspirated suggestinglesion to be a complex abscess.2. Successful image guided intrahepatic pigtail drainage catheter placement x2.3. Each catheter and bag should be flushed with 10 mL sterile normal salineTID as inpatient and then once a day after discharge.4. Given solid organ location of the drain, cannot be removed for at least3-4 weeks until mature tract forms to prevent bleeding and/or bile leak.5. Recommend removal once daily output 10 ml or less and resolution on followup CT.6. Removal has to be done under fluoroscopy over the wire given intrahepaticlocation. US Abdomen Limited Result Date: November 14, 2023 Verified By: VÍCTOR CLEMENT MD CLINICAL STATEMENT: IMPRESSION: Large complex liver lesion. The liver abscess should be the primaryconsideration, necrotic neoplasm is possible but less likely. Common duct dilatation. The pancreas is completely obscured. Reactive changes of the gallbladder. No gallstones. CT Abd/Pelvis w/ IV Contrast Only Result Date: November 13, 2023 Verified By: MIREYA MARLEY MD CLINICAL STATEMENT: IMPRESSION: 1. Prominent central and inferior liver abnormality. Necrotic neoplasm andintrahepatic abscesses are the leading considerations.2. Masslike prominence of the head of the pancreas with prominent atrophy ofthe pancreatic body and tail. Focal pancreatitis could have this appearance,although pancreatic malignancy must be strongly considered.3. Hyacinth hepatis adenopathy. This could be reactive, hyperplastic,inflammatory, or neoplastic.4. Small amount of fluid in the lesser sac. CT Angiography Neck w/ Contrast Result Date: November 12, 2023 Verified By: ALYCIA HAWK MD CLINICAL STATEMENT: IMPRESSION: No hemodynamically significant stenosis of either carotid bifurcation. Incidental note of a 6 mm left internal mammary lymph node of unknownclinical significance. Correlate clinically andconsider [id number] as well as correlating with patient history for any evidence ofcancer history, including breast. Degenerative disc disease resulting in areas of suspected mild to moderatespinal canal narrowing. Correlate with any radiculopathy. Periapical lucencies. Dental consultationrecommended. Heterogeneous appearance of the bones which is nonspecific and may be seenwith normal aging, bone marrow reconversion, blood cell disorders or possiblemetabolic disorders. Findings suggestive of acute sinusitis as above. I have personally reviewed the images of this examination and agree with theresident's findings and interpretation. CT Angiography Head w/ Contrast Result Date: November 12, 2023 Verified By: ALYCIA HAWK MD CLINICAL STATEMENT: IMPRESSION: No evidence of major arterial occlusion, aneurysm, or significant stenosis. CT Head or Brain w/o Contrast Result Date: November 12, 2023 Verified By: AR PRIETO MD CLINICAL STATEMENT: IMPRESSION: No acute intracranial hemorrhage. Small chronic appearing insult in the right posteriortemporal-occipitallobe. Chronic appearing small insult in the right thalamus. XR Chest 1 View Result Date: November 12, 2023 Verified By: MIREYA MARLEY MD CLINICAL STATEMENT: IMPRESSION: Hypoventilatory changes, no other acute finding. EKG No qualifying data available. Assessment/Plan Patient is a 62-year-old male with history of chronic pancreatitis type 2 diabetes mellitus TIA spinal stenosis osteoarthritis initially presented to the hospital with numbness involving the left side of the neck face and upper extremity and had stroke workup. Subsequently patient noted to have abnormal appearing lesion on the CT abdomen and pelvis in the liver. Which showed prominent central andinferior liver abnormality, necrotic neoplasm versus intrahepatic abscess. right upper quadrant ultrasound which shows a large complex liver lesion, liver abscess would be primary consideration ID hence consulted. #1 liver abscess IR evaluated the patient and performed CT-guided liver biopsy along with aspiration, during the procedure geeta pus was noted which was aspirated and sent for culture and additionally IR placed 2 CT-guided drains. Culture with Streptococcus intermedius. Patient has PICC line placed for continuationof IV antibiotic therapy for 4 weeks. Patient had MRI of the liver/pancreas obtained this morning, results are pending from ID perspective recommend following Please continue Zosyn 3.375 g IV every 8 hours to be infused via 24-hour continuous infusion for home use, with tentative end date of December 14, 2023. Please obtain CBC, differential, hepatic panel, renal panel every Monday and send results to fax number [phone] Dumont Please call Dr. Dumont's office for a follow-up appointment in 2 weeks, Phone number [phone]. PICC line is already placed for IV antibiotic therapy Antibiotic plan discussed with patient who is in agreement plan also discussed with at bedside Prescription is left in the chart Patient is currently awaiting results of the MRI of liver pancreas as well as results of liver biopsy. Please notify ID service regarding these results. ID service will sign off, Dr. Dumont will be starting rounding from tomorrow call if there are anyadditional questions or concerns. Digitally Signed by FLOR CHRISTIE MD on 11/19/2023 11:30 AM [facility] [id number] Note ORIGINAL EXAMINATION: MRI OF THE ABDOMEN LIMITED WITH CONTRAST, 11/19/2023 9:33 am TECHNIQUE: Multiplanar multisequence MRI of the abdomen limited was performed with the administration of intravenous contrast. COMPARISON: None. HISTORY: ORDERING SYSTEM PROVIDED HISTORY: Reason for Exam: Pancreatitis, R/O gallstones FINDINGS: Trace right pleural effusion. There is susceptibility Artifact within the anterior abdominal wall, possibly related to prior surgery. Correlate clinically. There are heterogeneous enlarged right hepatic masses, with associated linear susceptibility artifact extending to the right anterior abdominal wall, most consistent with a surgical drain. Multilobulated rim enhancing heterogeneous right hepatic masses measure up to 11.2 x 7.1 cm in conglomerate. This appears similar compared with prior CT scan. There is a central hyperintensity on diffusion-weighted imaging, with corresponding hypointensity on ADC map, most consistent with hepatic abscess formation. There is hypoenhancement of the right hepatic lobe within segment and to lesser extent VII, which may be related to variations in perfusion. There is no corresponding signal abnormality on T1 and T2 weighted imaging. Hyacinth hepatis lymphadenopathy enlarged hyacinth hepatis lymph node measures up to 3 x 1.7 cm. There is a 4.1 x 2.9 cm T2 hypointense, mildly T1 hyperintense mass centered upon the pancreatic head, with mildly heterogeneous low level enhancement. The remainder of the pancreas is largely atrophic. The pancreatic duct is not visualized. There is no biliary ductal dilatation. Mild beaded appearance of the common bile duct. There is no biliary ductal dilatation. The common duct measures up to 6 mm maximally. There is no intrahepatic biliary ductal dilatation. A simple right renal midportion subcentimeter cyst is noted. IMPRESSION: 1. A 4.1 x 2.9 cm mass centered upon the pancreatic head, with mildly heterogeneous low level enhancement. There is no definite associated restricted diffusion. The remainder of the pancreas is largely atrophic. Considerations include but are not limited to mass forming pancreatitis and pancreatic neoplasm. 2. Heterogeneous enlarged right hepatic masses, containing a surgical drain. Findings are most consistent with abscess formation. Necrotic neoplasm cannot be entirely excluded. 3. Beaded appearance of the common bile duct, without biliary ductal dilatation. Findings raise concern for cholangitis (i.e. Infectious/ischemic/inflammatory). 4. Hyacinth hepatis lymphadenopathy. 5. Trace right pleural effusion. Interpreted by: Melissa Holloway Preliminary Report By: Melissa Holloway Electronically signed By Melissa Bilinsky Dictated Date: 11/20/2023 10:04:48 AM Prelim Date: 11/20/2023 10:39:53 AM Sign Date: 11/20/2023 10:39:53 AM Ordering Provider: [facility]05-25-2024 Procedure note Vascular Access Team Post Procedure Note Procedure: Peripherally Inserted Central Catheter (PICC) Indication: Fdc Antibiotics Details: Consult for PICC Placement received. Chart Reviewed. Informed consent was obtained and verified prior to the procedure. A pre-procedure Time Out was performed confirming correct patient and procedure. A 5 Fr. Double Lumen PICC was inserted at the bedside under sterile technique. Vacular access was obtained with ultrasound guidance. PICC flushes easily with good blood return. Patient tolerated placement of PICC well. PICC education provided. Anesthesia: Local subcutaneous injection using 3ml 2% Lidocaine Access Vessel: Right Basilic Catheter Length: 42cm Internal Length: 41cm External Length: 1cm Arm Circ: 36cm Lot #: [id number] Complications: None Inserted by: Aide Laurent RN Plan: PICC okay to use now as placement confirmed in lower SVC by ECG technology with maximum P wave and absence of negative deflection. PICC flushes easily with good blood return. Primary RN notified. Digitally Signed by PATSY Laurent on 11/18/2023 01:57 PM [facility] [id number] Infectious disease Progress note Date of Service 11/18/2023 Chief Complaint Liver abscess abdominal pain Subjective Patient with Tmax of 37.1 patient with no new complaints today Objective Vitals and Measurements T: 36.8 C (Oral) TMIN: 36.6 C (Oral) TMAX: 37.1 C (Oral) HR: 68 RR: 18 BP: 88/69 SpO2: 90% Intake and Output 7AM Yesterday to 7AM Today Intake and Output (Last 24 hours) Intake Oral Intake 940.00 Administration Information 1000.00 Supplement Intake 0.00 Output Surgical Drain, Tube Output: 75.00 Urine Voided 1650.00 Stool Count 0.00 Urine Count 0.00 Total Summary Total Intake 1940.00 Total Output 1725.00 Fluid Balance 215.00 Physical Exam Patient is an elderly male noted to be laying in the bed alert and awake able to speak in full sentences HEENT atraumatic normocephalic neck supple patient's abdomen is soft and nontender patient has2 biliary drains in the right upper quadrant. Patient does not have any generalized rash. Weight Dosing Weight: 99 kg (11/12/23) Dosing Weight: 99 kg (11/12/23) Medications Medications (27) Active Scheduled: (15) aspirin 81 mg EC 81 mg 1 tab(s), Oral, qDay enoxaparin 40 mg/ 0.4mL syringe 40 mg 0.4 mL, Subcutaneous, qDay insulin glargine 16 unit(s) 0.16 mL, Subcutaneous (INT), qHS insulin lispro 100 units/mL Soln (3 mL) Give 0-10 units/dose, Subcutaneous, TIDAC insulin lispro 100 units/mL Soln (3 mL) 5 unit(s) 0.05 mL, Subcutaneous, TIDAC lidocaine 1% (MPF) 2 mL vial pf 30 mg 3 mL, Intradermal, prep pharm loratadine 10 mg Tablet 10 mg 1 tab(s), Oral, qDay metformin 500 mg Tablet 1,000 mg 2 tab(s), Oral, BID montelukast 10 mg Tablet 10 mg 1 tab(s), Oral, qDay piperacillin-tazobactam PMX 3.375 gram(s) 50 mL, IV Piggyback, q8hr rosuvastatin 20 mg tablet 40 mg 2 tab(s), Oral, qDay sertraline 50 mg tablet 50 mg 1 tab(s), Oral, qDay sodium chloride 0.9% 10 ml syringe randee flush 10 mL, IR Drain, q8h sodium chloride 0.9% 10 ml syringe randee flush 10 mL, IR Drain, q8h traZODONE 100 mg Tablet 100 mg 1 tab(s), Oral, qHS Continuous: (0) PRN: (12) acetaminophen 325 mg Tablet 650 mg 2 tab(s), Oral, q4h acetaminophen 650 mg Suppository 650 mg 1 supp, Rectal, q4h Al hydrox/Mg hydrox/simethicone 200-200-20 mg/5 mL Susp UD 30 mL, Oral, q2h bisacodyl 5 mg EC tablet 10 mg 2 tab(s), Oral, qDay dextrose 50% Solution Disp syringe 50 mL 12.5 gram(s) 25 mL, IV Push, AsDirected docusate-senna (Senokot S) 50 mg-8.6 mg Tablet 1 tab(s), Oral, BID HYDROmorphone 0.5 mg/0.5 mL PF syringe 0.5 mg 0.5 mL, IV Push, q3h hydroxyzine pamoate 50 mg capsule 50 mg 1 cap(s), Oral, TID melatonin 3 mg tablet 3 mg 1 tab(s), Oral, qHS ondansetron 2 mg/ 1 mL 2 mL INJ 4 mg 2 mL, IV Push, q4h oxycodone 5 mg tablet (immediate release) 5 mg 1 tab(s), Oral, q4h oxycodone 5 mg tablet (immediate release) 10 mg 2 tab(s), Oral, q4h Lab Results 11/17 05:02 WBC: 7.9 Hgb: 10.1 L Hct: 29.8 L Platelet: 353 Neutrophil %: 76.9 H Protime: 14.6 H PT International Ratio: 1.3 Glucose Level: 137 H Sodium Level: 141 Potassium Level: 4.0 BUN: 6.0 L Creatinine Lvl (s): 0.77 11/16 05:45 WBC: 7.9 Hgb: 9.9 L Hct: 30.1 L Platelet: 314 Neutrophil %: 78.6 H Protime: 15.8 H PT International Ratio: 1.4 Glucose Level: 282 H Sodium Level: 139 Potassium Level: 4.6 BUN: 6.0 L Creatinine Lvl (s): 0.75 Imaging Results and Diagnostics MRI Spine Cervical w/ + w/o Contrast Result Date: November 17, 2023 Verified By: AR PRIETO MD CLINICAL STATEMENT: IMPRESSION: Multilevel degenerative changes of the spine as above. No abnormal spinalcord signal orabnormal enhancement. MRI Brain w/ + w/o Contrast Result Date: November 17, 2023 Verified By: AR PRIETO MD CLINICAL STATEMENT: IMPRESSION: No acute intracranial abnormality. I have personally reviewed the images of this examination and agree with theresident's findings and interpretation. IR Aspiration/Drainage Result Date: November 16, 2023 Verified By: MAXINE FORD MD CLINICAL STATEMENT: IMPRESSION: 1. Successful liver biopsy and aspiration. Pus was aspirated suggestinglesion to be a complex abscess.2. Successful image guided intrahepatic pigtail drainage catheter placement x2.3. Each catheter and bag should be flushed with 10 mL sterile normal salineTID as inpatient and then once a day after discharge.4. Given solid organ location of the drain, cannot be removed for at least3-4 weeks until mature tract forms to prevent bleeding and/or bile leak.5. Recommend removal once daily output 10 ml or less and resolution on followup CT.6. Removal has to be done under fluoroscopy over the wire given intrahepaticlocation. US Abdomen Limited Result Date: November 14, 2023 Verified By: VÍCTOR CLEMENT MD CLINICAL STATEMENT: IMPRESSION: Large complex liver lesion. The liver abscess should be the primaryconsideration, necrotic neoplasm is possible but less likely. Common duct dilatation. The pancreas is completely obscured. Reactive changes of the gallbladder. No gallstones. CT Abd/Pelvis w/ IV Contrast Only Result Date: November 13, 2023 Verified By: MIREYA MARLEY MD CLINICAL STATEMENT: IMPRESSION: 1. Prominent central and inferior liver abnormality. Necrotic neoplasm andintrahepatic abscesses are the leading considerations.2. Masslike prominence of the head of the pancreas with prominent atrophy ofthe pancreatic body and tail. Focal pancreatitis could have this appearance,although pancreatic malignancy must be strongly considered.3. Hyacinth hepatis adenopathy. This could be reactive, hyperplastic,inflammatory, or neoplastic.4. Small amount of fluid in the lesser sac. CT Angiography Neck w/ Contrast Result Date: November 12, 2023 Verified By: ALYCIA HAWK MD CLINICAL STATEMENT: IMPRESSION: No hemodynamically significant stenosis of either carotid bifurcation. Incidental note of a 6 mm left internal mammary lymph node of unknownclinical significance. Correlate clinically andconsider [id number] as well as correlating with patient history for any evidence ofcancer history, including breast. Degenerative disc disease resulting in areas of suspected mild to moderatespinal canal narrowing. Correlate with any radiculopathy. Periapical lucencies. Dental consultationrecommended. Heterogeneous appearance of the bones which is nonspecific and may be seenwith normal aging, bone marrow reconversion, blood cell disorders or possiblemetabolic disorders. Findings suggestive of acute sinusitis as above. I have personally reviewed the images of this examination and agree with theresident's findings and interpretation. CT Angiography Head w/ Contrast Result Date: November 12, 2023 Verified By: ALYCIA HAWK MD CLINICAL STATEMENT: IMPRESSION: No evidence of major arterial occlusion, aneurysm, or significant stenosis. CT Head or Brain w/o Contrast Result Date: November 12, 2023 Verified By: AR PRIETO MD CLINICAL STATEMENT: IMPRESSION: No acute intracranial hemorrhage. Small chronic appearing insult in the right posteriortemporal-occipitallobe. Chronic appearing small insult in the right thalamus. XR Chest 1 View Result Date: November 12, 2023 Verified By: MIREYA MARLEY MD CLINICAL STATEMENT: IMPRESSION: Hypoventilatory changes, no other acute finding. EKG No qualifying data available. Assessment/Plan Orders: lidocaine(lidocaine 1% preservative-free injectable solution), 30 mg= 3 mL, Intradermal, prep pharm Central Line Dressing Change, 11/17/23 13:30:00 EDT q7day Central Line Insertion/Care, 11/17/23 13:30:00 EDT q4h Communication Order (continuous), 11/17/23 13:30:00 EDT, Each lumen should be treated as an individual catheter, Constant order Communication Order (continuous), 11/17/23 13:30:00 EDT, Vascular Access Team to confirm placement by using ECG tip confirmation. If unable to validate by ECG tip confirmation, obtain a one view chest x-ray to confirm placement, Constant order Communication Order (continuous), 11/17/23 13:30:00 EDT, May use PICC line after PICC placement confirmed, Constant order Patient Education, 11/17/23 13:30:00 EDT, BID, Education to patient and family on prevention of central line-associated bloodstream infection Patient Education, 11/17/23 13:30:00 EDT, BID, Provide home going Instructions for dressing changesevery 7 days and instructions on how to flush PICC line every week PICC Line Placement by Vascular Access Team, 11/17/23 13:30:00 EDT Patient is a 62-year-old male with history of chronic pancreatitis type 2 diabetes mellitus TIA spinal stenosis osteoarthritis initially presented to the hospital with numbness involving the left side of the neck face and upper extremity and had stroke workup. Subsequently patient noted to have abnormal appearing lesion on the CT abdomen and pelvis in the liver. Which showed prominent central andinferior liver abnormality, necrotic neoplasm versus intrahepatic abscess. right upper quadrant ultrasound which shows a large complex liver lesion, liver abscess would be primary consideration ID hence consulted. #1 liver abscess IR evaluated the patient and performed CT-guided liver biopsy along with aspiration, during the procedure geeta pus was noted which was aspirated and sent for culture and additionally IR placed 2 CT-guided drains. Culture with Streptococcus intermedius. Discussed with patient. Continue Zosyn. PICC line is to be placed today. Await liver biopsy results. Patient also awaiting MRI of the pancreas. ID to follow. Digitally Signed by FLOR CHRISTIE MD on 11/18/2023 12:50 PM [id number] Note ORIGINAL EXAMINATION: MRI OF THE CERVICAL SPINE WITHOUT AND WITH CONTRAST 11/17/2023 6:53 pm: TECHNIQUE: Multiplanar multisequence MRI of the cervical spine was performed without and with the administration of intravenous contrast. COMPARISON: Limited evaluation of the cervical spine on CT of the neck November 12, 2023. HISTORY: ORDERING SYSTEM PROVIDED HISTORY: Reason for Exam: Left sided weakness, eval for stenosis, malignancy FINDINGS: BONES/ALIGNMENT: There is normal alignment of the spine. The vertebral body heights are maintained. Diffuse T1 hypointensity of the bone marrow, nonspecific although can be seen in a bone marrow reconversion or replacement process. SPINAL CORD: No abnormal cord signal is seen. SOFT TISSUES: No abnormal enhancement of the cervical spine. No paraspinal mass identified. Degenerative changes: Multilevel disc osteophyte complexes, uncovertebral and facet arthrosis with narrowings as below: C2-C3: No significant spinal canal stenosis. Mild right neural foraminal narrowing. C3-C4: Effacement of the thecal sac with flattening of the cord. Severe left neural foraminal narrowing. C4-C5: Partial effacement of the thecal sac. Mild to moderate right neural foraminal narrowing. C5-C6: No significant spinal canal stenosis. Severe right neural foraminal narrowing. C6-C7: No significant spinal canal stenosis. Mild bilateral neural foraminal narrowing. C7-T1: No significant spinal canal stenosis or neural foraminal narrowing. IMPRESSION: Multilevel degenerative changes of the spine as above. No abnormal spinal cord signal or abnormal enhancement. Interpreted by: Ar Prieto Preliminary Report By: Ar Prieto Electronically signed By Ar Prieto Dictated Date: 11/17/2023 8:28:51 PM Prelim Date: 11/17/2023 8:38:30 PM Sign Date: 11/17/2023 8:38:30 PM Ordering Provider: [id number] Note ORIGINAL EXAMINATION: MRI OF THE BRAIN WITHOUT AND WITH CONTRAST 11/17/2023 6:53 pm TECHNIQUE: Multiplanar multisequence MRI of the head/brain was performed without and with the administration of intravenous contrast. COMPARISON: CT head 11/12/2023 HISTORY: ORDERING SYSTEM PROVIDED HISTORY: Reason for Exam: Left sided weakness, eval for stroke, malignancy FINDINGS: INTRACRANIAL STRUCTURES/VENTRICLES: There is no acute infarct. Old small insult in the right lateral occipital lobe. No mass effect or midline shift. No evidence of an acute intracranial hemorrhage. Mild generalized parenchymal volume loss with concordant expansion of the ventricular system. Few scattered tiny T2/FLAIR densities of the periventricular and subcortical white matter which are nonspecific although could be sequelae of chronic small vessel ischemic changes. The ventricles and sulci are normal in size and configuration. The sellar/suprasellar regions appear unremarkable. The normal signal voids within the major intracranial vessels appear maintained. No abnormal focus of enhancement is seen within the brain. ORBITS: There is mild optic disc edema just before the globe, nonspecific. The visualized portion of the orbits demonstrate no acute abnormality. SINUSES: The visualized paranasal sinuses and mastoid air cells demonstrate no acute abnormality. Moderate mucosal thickening of the left maxillary sinus. BONES/SOFT TISSUES: T1 hypointensity of the cervical spine bone marrow, nonspecific although which could reflect underlying bone marrow reconversion or replacement process. The soft tissues demonstrate no acute abnormality. IMPRESSION: No acute intracranial abnormality. I have personally reviewed the images of this examination and agree with the resident's findings and interpretation. Interpreted by: Ar Prieto Preliminary Report By: Charles Zuluaga Electronically signed By Ar Prieto Dictated Date: 11/17/2023 8:02:24 PM Prelim Date: 11/17/2023 8:07:30 PM Sign Date: 11/17/2023 8:22:18 PM Ordering Provider: [id number] Infectious disease Progress note Date of Service 11/17/2023 Chief Complaint Liver abscess Subjective Patient with Tmax of 36.9 patient endorsing no new complaints today Objective Vitals and Measurements T: 36.6 C (Oral) TMIN: 36.5 C (Oral) TMAX: 36.9 C (Oral) HR: 72 (Apical) RR: 16 BP: 96/69 SpO2: 93% Intake and Output 7AM Yesterday to 7AM Today Intake and Output (Last 24 hours) Intake Oral Intake 1297.00 Administration Information 8772.00 Output Surgical Drain, Tube Output: 75.00 Urine Voided 1600.00 Stool Count 0.00 Urine Count 1.00 Total Summary Total Intake 09052.00 Total Output 1675.00 Fluid Balance 8394.00 Physical Exam Patient is 62-year-old male who is noted to be sitting up in the bed comfortably he is alert awake oriented to self and surroundings able to speak in full sentences overall in no respiratory distressskin without any generalized rash patient is noted to have 2 abdominal drains noted in the right upper abdomen. Weight Dosing Weight: 99 kg (11/12/23) Dosing Weight: 99 kg (11/12/23) Medications Medications (28) Active Scheduled: (15) aspirin 81 mg EC 81 mg 1 tab(s), Oral, qDay enoxaparin 40 mg/ 0.4mL syringe 40 mg 0.4 mL, Subcutaneous, qDay insulin glargine 16 unit(s) 0.16 mL, Subcutaneous (INT), qHS insulin lispro 100 units/mL Soln (3 mL) Give 0-10 units/dose, Subcutaneous, TIDAC insulin lispro 100 units/mL Soln (3 mL) 5 unit(s) 0.05 mL, Subcutaneous, TIDAC lidocaine 1% (MPF) 2 mL vial pf 30 mg 3 mL, Intradermal, prep pharm loratadine 10 mg Tablet 10 mg 1 tab(s), Oral, qDay metformin 500 mg Tablet 1,000 mg 2 tab(s), Oral, BID montelukast 10 mg Tablet 10 mg 1 tab(s), Oral, qDay piperacillin-tazobactam PMX 3.375 gram(s) 50 mL, IV Piggyback, q8hr rosuvastatin 20 mg tablet 40 mg 2 tab(s), Oral, qDay sertraline 50 mg tablet 50 mg 1 tab(s), Oral, qDay sodium chloride 0.9% 10 ml syringe randee flush 10 mL, IR Drain, q8h sodium chloride 0.9% 10 ml syringe randee flush 10 mL, IR Drain, q8h traZODONE 100 mg Tablet 100 mg 1 tab(s), Oral, qHS Continuous: (1) NS (0.9% nacl) 1,000 mL 1,000 mL, Intravenous, 150 mL/hr PRN: (12) acetaminophen 325 mg Tablet 650 mg 2 tab(s), Oral, q4h acetaminophen 650 mg Suppository 650 mg 1 supp, Rectal, q4h acetaminophen-HYDROcodone 325-10 mg tablet 2 tab(s), Oral, q4h acetaminophen-HYDROcodone 325-5 mg tablet 1 tab(s), Oral, q4h Al hydrox/Mg hydrox/simethicone 200-200-20 mg/5 mL Susp UD 30 mL, Oral, q2h bisacodyl 5 mg EC tablet 10 mg 2 tab(s), Oral, qDay dextrose 50% Solution Disp syringe 50 mL 12.5 gram(s) 25 mL, IV Push, AsDirected docusate-senna (Senokot S) 50 mg-8.6 mg Tablet 1 tab(s), Oral, BID HYDROmorphone 0.5 mg/0.5 mL PF syringe 0.5 mg 0.5 mL, IV Push, q3h hydroxyzine pamoate 50 mg capsule 50 mg 1 cap(s), Oral, TID melatonin 3 mg tablet 3 mg 1 tab(s), Oral, qHS ondansetron 2 mg/ 1 mL 2 mL INJ 4 mg 2 mL, IV Push, q4h Lab Results 11/16 05:45 WBC: 7.9 Hgb: 9.9 L Hct: 30.1 L Platelet: 314 Neutrophil %: 78.6 H Protime: 15.8 H PT International Ratio: 1.4 Glucose Level: 282 H Sodium Level: 139 Potassium Level: 4.6 BUN: 6.0 L Creatinine Lvl (s): 0.75 11/15 08:58 WBC: 8.2 Hgb: 9.4 L Hct: 28.0 L Platelet: 280 Neutrophil %: 77.8 H Protime: 16.9 H PT International Ratio: 1.5 Glucose Level: 87 Sodium Level: 139 Potassium Level: 3.8 BUN: 5.0 L Creatinine Lvl (s): 0.86 Imaging Results and Diagnostics IR Aspiration/Drainage Result Date: November 16, 2023 Verified By: MAXINE FODR MD CLINICAL STATEMENT: IMPRESSION: 1. Successful liver biopsy and aspiration. Pus was aspirated suggestinglesion to be a complex abscess.2. Successful image guided intrahepatic pigtail drainage catheter placement x2.3. Each catheter and bag should be flushed with 10 mL sterile normal salineTID as inpatient and then once a day after discharge.4. Given solid organ location of the drain, cannot be removed for at least3-4 weeks until mature tract forms to prevent bleeding and/or bile leak.5. Recommend removal once daily output 10 ml or less and resolution on followup CT.6. Removal has to be done under fluoroscopy over the wire given intrahepaticlocation. US Abdomen Limited Result Date: November 14, 2023 Verified By: VÍCTOR CLEMENT MD CLINICAL STATEMENT: IMPRESSION: Large complex liver lesion. The liver abscess should be the primaryconsideration, necrotic neoplasm is possible but less likely. Common duct dilatation. The pancreas is completely obscured. Reactive changes of the gallbladder. No gallstones. CT Abd/Pelvis w/ IV Contrast Only Result Date: November 13, 2023 Verified By: MIREYA MARLEY MD CLINICAL STATEMENT: IMPRESSION: 1. Prominent central and inferior liver abnormality. Necrotic neoplasm andintrahepatic abscesses are the leading considerations.2. Masslike prominence of the head of the pancreas with prominent atrophy ofthe pancreatic body and tail. Focal pancreatitis could have this appearance,although pancreatic malignancy must be strongly considered.3. Hyacinth hepatis adenopathy. This could be reactive, hyperplastic,inflammatory, or neoplastic.4. Small amount of fluid in the lesser sac. CT Angiography Neck w/ Contrast Result Date: November 12, 2023 Verified By: ALYCIA HAWK MD CLINICAL STATEMENT: IMPRESSION: No hemodynamically significant stenosis of either carotid bifurcation. Incidental note of a 6 mm left internal mammary lymph node of unknownclinical significance. Correlate clinically andconsider [id number] as well as correlating with patient history for any evidence ofcancer history, including breast. Degenerative disc disease resulting in areas of suspected mild to moderatespinal canal narrowing. Correlate with any radiculopathy. Periapical lucencies. Dental consultationrecommended. Heterogeneous appearance of the bones which is nonspecific and may be seenwith normal aging, bone marrow reconversion, blood cell disorders or possiblemetabolic disorders. Findings suggestive of acute sinusitis as above. I have personally reviewed the images of this examination and agree with theresident's findings and interpretation. CT Angiography Head w/ Contrast Result Date: November 12, 2023 Verified By: ALYCIA HAWK MD CLINICAL STATEMENT: IMPRESSION: No evidence of major arterial occlusion, aneurysm, or significant stenosis. CT Head or Brain w/o Contrast Result Date: November 12, 2023 Verified By: AR PRIETO MD CLINICAL STATEMENT: IMPRESSION: No acute intracranial hemorrhage. Small chronic appearing insult in the right posteriortemporal-occipitallobe. Chronic appearing small insult in the right thalamus. XR Chest 1 View Result Date: November 12, 2023 Verified By: MIREYA MARLEY MD CLINICAL STATEMENT: IMPRESSION: Hypoventilatory changes, no other acute finding. EKG No qualifying data available. Assessment/Plan Orders: lidocaine(lidocaine 1% preservative-free injectable solution), 30 mg= 3 mL, Intradermal, prep pharm Central Line Dressing Change, 11/17/23 13:30:00 EDT q7day Central Line Insertion/Care, 11/17/23 13:30:00 EDT q4h Communication Order (continuous), 11/17/23 13:30:00 EDT, Vascular Access Team to confirm placement by using ECG tip confirmation. If unable to validate by ECG tip confirmation, obtain a one view chest x-ray to confirm placement, Constant order Communication Order (continuous), 11/17/23 13:30:00 EDT, May use PICC line after PICC placement confirmed, Constant order Communication Order (continuous), 11/17/23 13:30:00 EDT, Each lumen should be treated as an individual catheter, Constant order Culture Wound Deep Aerobe/Anaerobe w Gram Stain, 11/16/23 14:22:00 EDT, Routine collect, Abscess, Liver, Stop date 11/16/23 14:23:00 EDT, Nurse collect Patient Education, 11/17/23 13:30:00 EDT, BID, Education to patient and family on prevention of central line-associated bloodstream infection Patient Education, 11/17/23 13:30:00 EDT, BID, Provide home going Instructions for dressing changesevery 7 days and instructions on how to flush PICC line every week PICC Line Placement by Vascular Access Team, 11/17/23 13:30:00 EDT Sign Consent, 11/17/23 13:30:00 EDT, Once, Placement of Peripherally Inserted Central Catheter Patient is a 62-year-old male with history of chronic pancreatitis type 2 diabetes mellitus TIA spinal stenosis osteoarthritis initially presented to the hospital with numbness involving the left side of the neck face and upper extremity and had stroke workup. Subsequently patient noted to have abnormal appearing lesion on the CT abdomen and pelvis in the liver. Which showed prominent central andinferior liver abnormality, necrotic neoplasm versus intrahepatic abscess. right upper quadrant ultrasound which shows a large complex liver lesion, liver abscess would be primary consideration ID hence consulted. #1 liver abscess IR evaluated the patient and performed CT-guided liver biopsy along with aspiration, during the procedure geeta pus was noted which was aspirated and sent for culture and additionally IR placed 2 CT-guided drains. Currently await cultures Discussed antibiotic options with patient. Discussed IV versus oral option. Patient interested in getting PICC line and treatment with 4-week course of Zosyn pending culture results. Will order PICC line placement. Discussed with Dr. Brewster. Await formal liver biopsy results. ID to follow. Digitally Signed by FLOR CHRISTIE MD on 11/17/2023 01:35 PM [id number] Interventional radiology Progress note Interventional Radiology Progress Note IR Procedure 11/16/[address]: [address]-guided liver biopsy 2. CT-guided liver aspiration 3. CT guided percutaneous drainage catheter placement, liver, segment 5/[address] guided percutaneous drainage catheter placement, liver, segment 8 Subjective Patient is seen at bedside, his is present. He states that he is doing better and has minimal RUQ discomfort. Denies chills, nausea or vomiting. Physical Exam Vitals: Drevhjnzung38.6 (10:43) Systolic Blood Xcsctfvb97 (10:43) Diastolic Blood Xrefcgig69 (10:43) Pulse72 (10:43) GnD083 (10:43) Respiratory RateNo result General: pleasant, resting comfortably in bed, NAD Abdomen: soft, non-tender, non-distended, scars noted from multiple abdominal surgeries Hepatic Abscess Drains: 2 drains present in RUQ, dressings changed due to dampness, insertion sitesare clean without erythema or drainage, sanguineous output present in both drainage bags The remainder of the physical exam is noncontributory. Imaging 11/16/23 IR Aspiration/Drainage IMPRESSION: 1. Successful liver biopsy and aspiration. Pus was aspirated suggesting lesion to be a complex abscess. 2. Successful image guided intrahepatic pigtail drainage catheter placement x 2. 3. Each catheter and bag should be flushed with 10 mL sterile normal saline TID as inpatient and then once a day after discharge. 4. Given solid organ location of the drain, cannot be removed for at least 3-4 weeks until mature tract forms to prevent bleeding and/or bile leak. 5. Recommend removal once daily output 10 ml or less and resolution on follow up CT. 6. Removal has to be done under fluoroscopy over the wire given intrahepatic location. Labs Relevant labs reviewed. Intake and Output (Last 24 hours) Intake Oral Intake 1297.00 Administration Information 8772.00 Output Surgical Drain, Tube Output: 75.00 Urine Voided 1600.00 Stool Count 0.00 Urine Count 1.00 Total Summary Total Intake 22583.00 Total Output 1675.00 Fluid Balance 8394.00 Complete Blood Count WBC: 7.9 10^3/mcL (11/17/23 05:45:00) RBC: 3.41 10^6/mcL Low (11/17/23 05:45:00) Hgb: 9.9 G/dL Low (11/17/23 05:45:00) Hct: 30.1 % Low (11/17/23 05:45:00) MCV: 88.1 fL (11/17/23 05:45:00) MCH: 28.9 pg (11/17/23 05:45:00) MCHC: 32.8 G/dL (11/17/23 05:45:00) RDW: 14.9 % (11/17/23 05:45:00) Platelet: 314 10^3/mcL (11/17/23 05:45:00) MPV: 9 fL (11/17/23 05:45:00) Comprehensive Metabolic Profile Glucose Level: 282 mg/dL High (11/17/23 05:45:00) Sodium Level: 139 mEq/L (11/17/23 05:45:00) Potassium Level: 4.6 mEq/L (11/17/23 05:45:00) Chloride: 106 mEq/L (11/17/23 05:45:00) CO2: 27 mEq/L (11/17/23 05:45:00) Creatinine Lvl (s): 0.75 mg/dL (11/17/23 05:45:00) BUN/Creatinine Ratio: 8 ratio Low (11/17/23 05:45:00) Calcium Lvl: 7.9 mg/dL Low (11/17/23 05:45:00) Total Protein: 5.1 G/dL Low (11/17/23 05:45:00) Albumin Level: 1.4 G/dL Low (11/17/23 05:45:00) Bili Total: 0.3 mg/dL (11/17/23 05:45:00) Alk Phos: 120 U/L (11/17/23 05:45:00) AST/SGOT: 28 U/L (11/17/23 05:45:00) ALT/SGPT: 21 U/L (11/17/23 05:45:00) Assessment/Treatment Plan 62 year-old male with hepatic abscesses s/p drain insertion x2 is seen at bedside POD #1. Patient is recovering well from drain insertions with minimal RUQ discomfort. Output from drain is sanguineous. Labs remain stable/unchanged. - Plan per Primary team. - Follow-up cultures and pathology. - Oncology following, appreciate recommendations. - Infectious disease following, appreciate recommendations. - Drains needs to remain in place given intrahepatic location, for a minimum of 3-4 weeks to allow adequate mature tract to form to prevent bleeding and bile leak. And/or until > 10 mL output daily. - Contact IR to discuss drain removal. Drains must be removed over wire. - Flush drain with 10 mL normal saline q 8 hours while in patient. - Patient is to flush drain once daily at home. Written prescription for flushes given to . - IR will continue to follow in the periphery. IR Follow Up Plan - Repeat CT and IR Drainage Catheter Evaluation 2 weeks from discharge. - Orders placed and contact information is in discharge tab. - IR will contact the patient once discharged for scheduling. Time Spent: 30 minutes was spent evaluating the patient and discussing the findings and recommendations as above. Verito Briscoe PA-C Interventional Radiology Pager [phone] IR Dept [phone] Available on [employer] Digitally Signed by VERITO BRISCOE PA-C on 11/17/2023 01:34 PM [id number] Note Pathology Report verified by [facility] ALYCIA HARLEY Sign out Date: 11/21/2023 12:32 Performing Lab: [facility], [address] [place] [address] Pathology Dept [facility] 05-23-2024 Procedure note Brief IR Post Procedure Note - Inpatient/Obs Pre Procedure Dx: Liver lesion Post Procedure Dx: Same Procedure: 1. CT core biopsy 2. CT aspiration 3. CT drain placement x 2 Lime Slaker: Logan Surgical Instrument Maker: None Anesthesia: Local, moderate sedation EBL: Minimal Complications:None Status: Stable Findings: 1. 10 x 18G cores obtained of liver lesion (right lobe inferomedial) from 2 different areas. 2. 10 ml of yellow pus aspirated from inferior portion of the lesion. 3. Given overt pus, 10 Fr x 25 cm pigtail drain placed in the inferior portion of the abscess. 60 ml of pus removed. Added extra side holes to try to aspiration the more superficial portion of the lesion. 4. Images show decrease of the inferior portion of the lesion. No change in the superior lesion. 5. Needle placed in superior lesion with pus aspirated. 10 Fr x 25 cm pigtail drain placed; 100 ml of pus removed. Post images show slight decrease in size. Uncertain if this communicates to the lesion further medial or not. 6. No immediate bleeding. Both tubes to suction bag. D/w Dr. Brewster. Plan: 1. Post sedation VS check 2. Resume diet 3. Flush each drain with 10 ml sterile NS TID while inpatient and once daily as OP. 4. Monitor output. 5. Given intrahepatic location, will need to be in a minimum of 3-4 weeks to allow adequate mature tract to form to prevent bleeding and bile leak. This was discussed with the patient preprocedure. 6. FU cx and pathology. 7. As OP, will need f/u CT and tube injection 1-2 weeks after initial placement. Full report to follow. Orders in [place] [place] "Anam Ford MD Vascular & Interventional Radiology [facility] ([facility]) Vivisa Tara Ashok [email or web address] Pager: [phone] [place] IR Dept (16/01): [id number] [facility] [phone] [facility] IR Call Schedule (copy & paste): [email or web address] Digitally Signed by MAXINE FORD MD on 11/16/2023 05:04 PM [facility] CenterFcbjpdrs31-12-0550 Note Pathology Report verified by [facility] ALYCIA HARLEY Sign out Date: 11/21/2023 12:32 Performing Lab: [address] Pathology Dept [facility] 05-23-2024 Note ORIGINAL HISTORY: ORDERING SYSTEM PROVIDED HISTORY: Reason for Exam: Liver lesion/ abscess. Right abdominal pain. Patient has a history of pancreatic stent placed in [place]. TECHNIQUE: This exam was performed according to our departmental dose-optimization program which includes automated exposure control, adjustment of the mA and/or kVp according to patient size and/or use of iterative reconstruction technique where applicable. PROCEDURE: 1. CT-guided liver biopsy 2. CT-guided liver aspiration 3. CT guided percutaneous drainage catheter placement, liver, segment 5/[address] guided percutaneous drainage catheter placement, liver, segment 8 SET UP TECHNICIAN: Dr. Ford BODY MAN: None MATERIALS: 18 G thin wall Amplatz 2 x 10 Fr APD Suction bag Dilator Prolene 18G Corvacet ANESTHESIA: Moderate conscious sedation administered. Patient was monitored throughout the procedure by nurse. INTRASERVICE TIME (min): 73 SKIN ENTRY SITE: Right upper quadrant subcostal FINDINGS: PRE: Segment 5/6 hypodense area measures 11.4 x 6.2 cm. Segment 8 hypodense lesion measures 7.6 x 7.4 cm. POST: Catheter loops noted within the smaller fluid collections. Some air within the collections is from the procedure. The procedure, risks, and alternatives, were discussed with the patient and all questions were answered. Written informed consent obtained. Procedure was performed using a cap, sterile gloves, a sterile sheet or towels, hand hygiene and hospital approved cutaneous antisepsis. Time out performed. Percutaneous site was sterilely prepped and draped. After local anesthesia administration, guide needle was advanced to segment 5 adjacent to the area of the lesion. 10 18 gauge core samples were obtained from 2 different areas. Needle was advanced into the central portion of the segment 6 part of the lesion. 10 mL of yellow pus was aspirated. Sample sent for culture. Biopsy needle was removed. Given aspiration of pus, likelihood of the lesion being neoplasm is low. It was decided that pigtail drain placement would be needed to treat this abscess. After local anesthesia administered and dermatotomy creation, needle was advanced into the fluid collection with CT guidance. Wire was coiled in the fluid collection under CT. 10 additional side holes were made between the pigtail and 15 cm marker. After dilatation, drainage catheter was advanced into the collection and distal loop formed under CT guidance. 60 mL of pus was removed. Catheter was attached to a vacuum suction bag. Catheter was affixed to the patient with suture. Sterile dressing placed. Follow-up CT images demonstrate slight decrease of segment 5/6 fluid collection. However the segment 8 fluid collection is unchanged suggesting this fluid collection is separate from the segment 5/6 collection. It was decided the 2nd hepatic drain would be necessary. After local anesthesia administered and dermatotomy creation, needle was advanced into the fluid collection with CT guidance. Wire was coiled in the fluid collection under CT. After dilatation, drainage catheter was advanced into the collection and distal loop formed under CT guidance. 100 mL of pus was removed. Catheter was attached to a vacuum suction bag. Catheter was affixed to the patient with suture. Sterile dressing placed. COMPLICATION: None EBL: Minimal CONDITION: Stable IMPRESSION: 1. Successful liver biopsy and aspiration. Pus was aspirated suggesting lesion to be a complex abscess. 2. Successful image guided intrahepatic pigtail drainage catheter placement x 2. 3. Each catheter and bag should be flushed with 10 mL sterile normal saline TID as inpatient and then once a day after discharge. 4. Given solid organ location of the drain, cannot be removed for at least 3-4 weeks until mature tract forms to prevent bleeding and/or bile leak. 5. Recommend removal once daily output 10 ml or less and resolution on follow up CT. 6. Removal has to be done under fluoroscopy over the wire given intrahepatic location. Interpreted by: Maxine Ford MD Preliminary Report By: Maxine Ford MD Electronically signed By Maxine Ford MD Dictated Date: 11/16/2023 8:22:27 PM Prelim Date: 11/16/2023 8:32:37 PM Sign Date: 11/16/2023 8:32:37 PM Ordering Provider: [facility]05-23-2024 Note IR Procedure Record Summary Primary Physician: MAXINE FORD MD Finalized Date/Time: 11/16/23 15:32:42 Pt. Name: KYLE MCDANIEL Luis /Sex: 1960 Male Med Rec #: [id number] Physician: RED VALENZUELA MD Financial #: [id number] Pt. Type: I Room/Bed: [facility]/A Admit/Disch: 11/12/23 11:26:24 - Institution: Allergies identified in patient's electronic medical record at time of printing on 11/16/23 Entry 1 Substance erythromycin Reaction Type Allergy Last Modified By: Belkis Ricardo RN 11/12/23 11:34:42 Case Attendance- IR Entry 1 Entry 2 Entry 3 Case Attendee MAXINE FORD MD, RN Jennifer M Norman, Mallory M Role Performed Primary Surgeon Procedure Nurse Scanner Supervisor Details Time In 11/16/23 13:55:00 11/16/23 13:55:00 11/16/23 13:55:00 Time Out 11/16/23 15:33:00 11/16/23 15:33:00 11/16/23 15:33:00 Procedure/Preference IR Aspiration/Drainage IR Aspiration/Drainage IR Aspiration/Drainage Card SN SN SN Last Modified By: PATSY Vega RN Jennifer M Fichter, RN Jennifer M 11/16/23 15:32:38 11/16/23 15:32:38 11/16/23 15:32:38 Radiology Procedures- IR Entry 1 Procedure/Preference IR Aspiration/Drainage Actual Procedure IR ASPIRATION / DRAINAGE Card SN Actual Procedure ct/ir aspiration Primary Procedure Yes Continued drainage Primary Surgeon MAXINE FORD MD Anesthesia/Sedation IV Sedation, Local Type Additional Procedure Times Start 11/16/23 13:58:00 Stop 11/16/23 15:23:00 Specialty Service SN Radiology Procedure EBL 0 mL Last Modified By: PATSY Vega 11/16/23 15:22:56 Radiology Procedure Details - IR Entry 1 Radiology Sedation Case Times Sedation Start Time 11/16/23 14:09:00 Sedation Stop Time 11/16/23 15:22:00 Sedation Total Time 1 hour 13 minutes Radiology - Fluid/Drainage Fluid Amount mL: 160cc Fluid Description pus Radiology Contrast Contrast Used? No Dose 0 Radiology Flouroscopy Fluoroscopy Used? Yes Fluoro Dose (mGy) 1013.89 Fluoro Time 1 minute 6 seconds Radiology Local Local Used? Yes Local Type: lidocaine 2% Local Dose 40cc Radiology Procedure Site Site/Location r abdomen Site Condition No complications Dressing Type Gauze sponge 4 X 4, Technologist Notes successful biopsy and Tagaderm drain placemen x 2 culture sent patient tolerated Last Modified By: PATSY Vega 11/16/23 15:28:21 Cultures and Specimens- IR Entry 1 Kind Culture Type Abscess Date/Time 11/16/23 14:27:00 Source r abdomen x 10 core Last Modified By: PATSY Vega 11/16/23 14:31:50 General Case Data - IR Entry 1 Case Information Room AH IR CT Case Level IR Level 2 Wound Class None Specialty SN Radiology Procedure ASA Class None Diagnosis Preop Diagnosis aspiration drain liver Postop Same As Preop Yes abcess Postop Diagnosis aspiration drain liver abcess Last Modified By: PATSY Vega 11/16/23 13:30:29 Medication Administration- IR Entry 1 Entry 2 Entry 3 Medication versed fentanyl lidocaine 2% Time Administered 11/16/23 14:09:00 11/16/23 14:09:00 11/16/23 14:52:00 Route of Admin IV Push IV Push Local Dose 1mg 25mcg 20cc Volume 1 mL .5 mL 20 mL VORB * *Verbal Order Read Back (VORB) is required for NON- PHYSICIAN administration of medications. Administered by No No Yes Physician? Administered by: PATSY Vega RN Jennifer M KAR, MITRYAN MD Verbal Order Read MAXINE FORD MD, MAXINE RAPHAEL Back from: Last Modified By: PATSY Vega RN Jennifer M Fichter, RN Jennifer M 11/16/23 14:11:22 11/16/23 14:11:22 11/16/23 14:52:53 Entry 4 Entry 5 Entry 6 Medication haldol versed versed Time Administered 11/16/23 14:08:00 11/16/23 14:22:00 11/16/23 14:37:00 Route of Admin IV Push IV Push IV Push Dose 2mg 1mg 1mg Volume .4 mL 1 mL 1 mL VORB * *Verbal Order Read Back (VORB) is required for NON- PHYSICIAN administration of medications. Administered by No No No Physician? Administered by: PATSY Vega RN Jennifer M Fichter, RN Jennifer M Verbal Order Read MAXINE FORD MD, MITRYAN MD KAR, MAXINE RAPHAEL Back from: Last Modified By: PATSY Vega RN Jennifer M Fichter, RN Jennifer M 11/16/23 14:11:22 11/16/23 14:22:51 11/16/23 14:38:10 Entry 7 Entry 8 Medication versed fentanyl Time Administered 11/16/23 15:00:00 11/16/23 15:22:00 Route of Admin IV Push IV Push Dose 1mg 25mcg Volume 1 mL .5 mL VORB * *Verbal Order Read Back (VORB) is required for NON- PHYSICIAN administration of medications. Administered by No No Physician? Administered by: PATSY Vega RN Jennifer M Verbal Order Read MAXINE FORD MD, MITRYAN MD Back from: Last Modified By: PATSY Vega RN Jennifer M 11/16/23 15:01:44 11/16/23 15:22:46 Procedure Case Times- IR Entry 1 Patient In Procedure Patient In OR 11/16/23 13:55:00 Patient Out of OR 11/16/23 15:33:00 Procedure Start/Stop Procedure Start Time 11/16/23 13:58:00 Procedure Stop Time 11/16/23 15:23:00 Last Modified By: PATSY Vega 11/16/23 15:32:23 Immediate Post Procedure Note - IR Entry 1 Immediate Post Yes Findings two abscess drains Procedure Note placed in right lobe displayed for liver in abscesses; inf Physician to review 60 ml; sup 100 ml pus; 10 18G cores Closure Technique Closure Technique Other than Primary Last Modified By: PATSY Vega 11/16/23 15:25:07 Immediate Post Procedure Note - IR Signed By: MAXINE FORD MD 11/16/23 15:24 Allergy Information- IR Entry 1 Allergies Reviewed? Yes Allergies Reviewed Medical Record With Last Modified By: PATSY Vega 11/16/23 13:26:20 Radiology Protocols/Time Out- IR Entry 1 Preprocedure Clinician Verifies Correct patient ID When Clinically Consent for using name & date Indicated Administration of or MRN, Accurate Blood, Confirmation of procedure, complete correct side(s) and Informed Consent, H & P site(s), Correct update immediately diagnostic and prior to procedure, if radiology tests applicable available, Required blood products, implants, devices and/or special equipment available, Preop antibiotics sent with patient/available in OR OR/Procedure Room/Bedside Time 11/16/23 13:57:00 Clinician Verifies Correct patient identity including EMR & records using name and date or medical record number, Accurate procedure consent form, Correct patient position, Necessary equipment is available, Anticipated non-routine events with surgical team (case duration, estimated blood loss, patient specific concerns)., [place] patient factors for recovery and management identified with surgical team. When Applicable Consent for Team Members MAXINE FORD MD, Administration of Present for Time Out PATSY Vega, Blood, Confirmation Lizzie Champion correct side and site marked, Relevant images and results are properly labeled and appropriately displayed, Confirm/obtain preop antibiotic order., Alcohol based prep dry, Double verification of sterility indicators complete Instrument Sterility Team Members MAXINE FORD MD, Verifying Sterility Lizzie Champion Procedure IR Aspiration/Drainage SN Last Modified By: PATSY Vega 11/16/23 14:04:06 Skin Prep- IR Entry 1 Procedure IR Aspiration/Drainage SN Skin Prep Prep Area Abdomen Side Right, Lower By MAXINE FORD MD Prep Agents Chloraprep Hair Removal Method N/A Last Modified By: PATSY Vega 11/16/23 14:26:05 Patient Positioning- IR Entry 1 Procedure IR Aspiration/Drainage Body Position OP Supine SN Feet Uncrossed? Yes Pressure Points Yes Checked Last Modified By: PATSY Vega 11/16/23 13:29:36 Radiology Procedure Plan - IR Entry 1 Radiology - Nursing Care Plan Outcome Statement The patient Outcome Statement The patient receives demonstrates knowledge Cont. appropriate of the expected medication(s), safely responses to the administered during the operative/invasive perioperative/invasive procedure., The period., The patient is patient's value system, free from signs and lifestyle, ethnicity, symptoms of injury and culture are caused by extraneous considered, respected, objects (equipment, and incorporated in the instrumentation, perioperative plan of sponges, or sharps)., care., The patient is The patient is free free from signs and from signs and symptoms symptoms of infection., of electrical injury., The patient is free The patient is at or from signs and symptoms returning to of injury related to normothermia at the positioning., The conclusion of the patient is free from immediate signs and symptoms of postoperative/invasive chemical injury. period., The patient is free from signs and symptoms of laser injury. Radiology - Action Plan Outcomes Met? Yes Head Of Art PATSY Vega Completing Procedure Plan Last Modified By: PATSY Vega 11/16/23 13:30:08 Transfer Post Procedure- IR Entry 1 RAD - Transport to Recovery Patient Transported IV Via Patient Bed With Post-op Destination Patient Room Post Procedure Time Out Double Verification Yes Date/Time Verified 11/16/23 15:33:00 of ID band on patient Completed Verfied ID Band on PATSY Vega by Last Modified By: PATSY Vega 11/16/23 15:32:30 Case Comments Finalized By: PATSY Vega Document Signatures Signed By: PATSY Vega 11/16/23 15:32 [id number] Note Pathology Report verified by [facility] ALYCIA HARLEY Sign out Date: 11/21/2023 12:32 Performing Lab: [facility], [address] [place] [address] Pathology Dept [facility] 05-23-2024 Note Pathology Report verified by [facility] ALYCIA HARLEY Sign out Date: 11/21/2023 12:32 Performing Lab: [facility], [address] [place] [address] Pathology Dept [facility] 05-23-2024 Note Pathology Report verified by [facility] ALYCIA HARLEY Sign out Date: 11/21/2023 12:32 Performing Lab: [facility], [address] [place] [address] Pathology Dept [facility] 05-23-2024 Note Pathology Report verified by [facility] ALYCIA HARLEY Sign out Date: 11/21/2023 12:32 Performing Lab: [address] Pathology Dept [facility] 05-23-2024 Note Pathology Report verified by [facility] ALYCIA HARLEY Sign out Date: 11/21/2023 12:32 Performing Lab: [address] Pathology Dept [facility] 05-22-2024 Oncology Progress note Chief Complaint No bleeding Pain in abdomen Not eating well Subjective No bleeding Pain Not eating well Objective Vitals and Measurements T: 37.7 C (Oral) TMIN: 36.4 C (Oral) TMAX: 38.3 C (Oral) HR: 86 RR: 16 BP: 103/59 SpO2: 92% In NAD Resp No difficulty Intake and Output 7AM Yesterday to 7AM Today Intake and Output (Last 24 hours) Intake Oral Intake 600.00 Supplement Intake 237.00 Output Urine Voided 500.00 Stool Count 0.00 Urine Count 3.00 Total Summary Total Intake 837.00 Total Output 500.00 Fluid Balance 337.00 Physical Exam In NAD 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, 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 Weight Dosing Weight: 99 kg (11/12/23) Dosing Weight: 99 kg (11/12/23) Medications Medications (25) Active Scheduled: (12) aspirin 81 mg EC 81 mg 1 tab(s), Oral, qDay enoxaparin 40 mg/ 0.4mL syringe 40 mg 0.4 mL, Subcutaneous, qDay insulin glargine 16 unit(s) 0.16 mL, Subcutaneous (INT), qHS insulin lispro 100 units/mL Soln (3 mL) Give 0-10 units/dose, Subcutaneous, TIDAC insulin lispro 100 units/mL Soln (3 mL) 5 unit(s) 0.05 mL, Subcutaneous, TIDAC loratadine 10 mg Tablet 10 mg 1 tab(s), Oral, qDay metformin 500 mg Tablet 1,000 mg 2 tab(s), Oral, BID montelukast 10 mg Tablet 10 mg 1 tab(s), Oral, qDay piperacillin-tazobactam PMX 3.375 gram(s) 50 mL, IV Piggyback, q8hr rosuvastatin 20 mg tablet 40 mg 2 tab(s), Oral, qDay sertraline 50 mg tablet 50 mg 1 tab(s), Oral, qDay traZODONE 100 mg Tablet 100 mg 1 tab(s), Oral, qHS Continuous: (1) NS (0.9% nacl) 1,000 mL 1,000 mL, Intravenous, 150 mL/hr PRN: (12) acetaminophen 325 mg Tablet 650 mg 2 tab(s), Oral, q4h acetaminophen 650 mg Suppository 650 mg 1 supp, Rectal, q4h Al hydrox/Mg hydrox/simethicone 200-200-20 mg/5 mL Susp UD 30 mL, Oral, q2h bisacodyl 5 mg EC tablet 10 mg 2 tab(s), Oral, qDay dextrose 50% Solution Disp syringe 50 mL 12.5 gram(s) 25 mL, IV Push, AsDirected docusate-senna (Senokot S) 50 mg-8.6 mg Tablet 1 tab(s), Oral, BID HYDROmorphone 0.5 mg/0.5 mL PF syringe 0.5 mg 0.5 mL, IV Push, q3h hydroxyzine pamoate 50 mg capsule 50 mg 1 cap(s), Oral, TID melatonin 3 mg tablet 3 mg 1 tab(s), Oral, qHS ondansetron 2 mg/ 1 mL 2 mL INJ 4 mg 2 mL, IV Push, q4h oxyCODONE 10 mg Tab (Immediate Release) 10 mg 1 tab(s), Oral, q4h oxycodone 5 mg tablet (immediate release) 5 mg 1 tab(s), Oral, q4h Lab Results 11/14 11:20 WBC: 10.3 Hgb: 10.0 L Hct: 29.8 L Platelet: 290 Neutrophil %: 81.6 H Glucose Level: 212 H Sodium Level: 134 L Potassium Level: 4.2 BUN: 10.0 Creatinine Lvl (s): 0.76 11/13 18:13 Glucose Level: 126 H Sodium Level: 138 Potassium Level: 4.3 BUN: 10.0 Creatinine Lvl (s): 0.91 EKG No qualifying data available. Assessment/Plan Patient reported pain in the mid upper abdomen for last 1 month 40 pound weight loss in the last 2 months Patient denies seeing any blood in the stools 11/12/2020 CT scan of abdomen and pelvis were done Prominent central and inferior liver lesions were seen. Possible causes included necrotic neoplasm, abscess. Masslike prominence of the head of the pancreas was seen Hyacinth hepatis adenopathy was noted. MRI of the liver has been ordered MRI of the pancreas has been ordered Patient was evaluated by gastroenterology Tumor markers were ordered. 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 and assessment documentation,present for all care Digitally Signed by Paris Peralta Orchard Manager on 11/15/2023 04:36 PM [facility] [id number] Nurse Progress note I read and agree with Catherine 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 Objective Vitals and Measurements T: 36.7 C (Oral) TMIN: 36.4 C (Oral) TMAX: 36.7 C (Oral) HR: 87 HR: 87 (Apical) RR: 16 BP: 110/78 SpO2: 93% Intake and Output 7AM Yesterday to 7AM Today Intake and Output (Last 24 hours) Intake Oral Intake 800.00 Supplement Intake 120.00 Output Urine Voided 400.00 Stool Count 0.00 Urine Count 1.00 Total Summary Total Intake 920.00 Total Output 400.00 Fluid Balance 520.00 Physical Exam General/Neuro: Well appearing in no acute distress . AAO X 3 [] Abdomen: +BS, Soft, upper abdominal tenderness with moderate palpation, no rebound or guarding. No HSM or ascites Weight Dosing Weight: 99 kg (11/12/23) Dosing Weight: 99 kg (11/12/23) Medications Medications (25) Active Scheduled: (12) aspirin 81 mg EC 81 mg 1 tab(s), Oral, qDay enoxaparin 40 mg/ 0.4mL syringe 40 mg 0.4 mL, Subcutaneous, qDay insulin glargine 16 unit(s) 0.16 mL, Subcutaneous (INT), qHS insulin lispro 100 units/mL Soln (3 mL) Give 0-10 units/dose, Subcutaneous, TIDAC insulin lispro 100 units/mL Soln (3 mL) 5 unit(s) 0.05 mL, Subcutaneous, TIDAC loratadine 10 mg Tablet 10 mg 1 tab(s), Oral, qDay metformin 500 mg Tablet 1,000 mg 2 tab(s), Oral, BID montelukast 10 mg Tablet 10 mg 1 tab(s), Oral, qDay piperacillin-tazobactam PMX 3.375 gram(s) 50 mL, IV Piggyback, q8hr rosuvastatin 20 mg tablet 40 mg 2 tab(s), Oral, qDay sertraline 50 mg tablet 50 mg 1 tab(s), Oral, qDay traZODONE 100 mg Tablet 100 mg 1 tab(s), Oral, qHS Continuous: (1) NS (0.9% nacl) 1,000 mL 1,000 mL, Intravenous, 150 mL/hr PRN: (12) acetaminophen 325 mg Tablet 650 mg 2 tab(s), Oral, q4h acetaminophen 650 mg Suppository 650 mg 1 supp, Rectal, q4h Al hydrox/Mg hydrox/simethicone 200-200-20 mg/5 mL Susp UD 30 mL, Oral, q2h bisacodyl 5 mg EC tablet 10 mg 2 tab(s), Oral, qDay dextrose 50% Solution Disp syringe 50 mL 12.5 gram(s) 25 mL, IV Push, AsDirected docusate-senna (Senokot S) 50 mg-8.6 mg Tablet 1 tab(s), Oral, BID HYDROmorphone 0.5 mg/0.5 mL PF syringe 0.5 mg 0.5 mL, IV Push, q3h hydroxyzine pamoate 50 mg capsule 50 mg 1 cap(s), Oral, TID melatonin 3 mg tablet 3 mg 1 tab(s), Oral, qHS ondansetron 2 mg/ 1 mL 2 mL INJ 4 mg 2 mL, IV Push, q4h oxyCODONE 10 mg Tab (Immediate Release) 10 mg 1 tab(s), Oral, q4h oxycodone 5 mg tablet (immediate release) 5 mg 1 tab(s), Oral, q4h Lab Results 11/14 11:20 WBC: 10.3 Hgb: 10.0 L Hct: 29.8 L Platelet: 290 Neutrophil %: 81.6 H Glucose Level: 212 H Sodium Level: 134 L Potassium Level: 4.2 BUN: 10.0 Creatinine Lvl (s): 0.76 11/13 18:13 Glucose Level: 126 H Sodium Level: 138 Potassium Level: 4.3 BUN: 10.0 Creatinine Lvl (s): 0.91 11/13 08:38 WBC: 11.4 H Hgb: 10.7 L Hct: 32.6 L Platelet: 309 Neutrophil %: 84.8 H EKG No qualifying data available. Assessment/Plan 1. Acute on chronic pancreatitis - the etiology of pancreatitis is most likely alcohol -Symptoms overall seem to be improving although patient does still complain of significant pain andis asking for increased dosage of pain medications -Diet as tolerated 2. Hepatic lesion - CT scan of abdomen showed heterogeneous density in the liver measuring 11.8 cm and some discrete areas of hypodensity, ultrasound suggestive of large complex liver lesion which may be an abscess or necrotic neoplasm -MRI was ordered to further evaluate this lesion but because of history of pancreatic stent placement, this is not being done at present time. Records have been requested from [facility] in [place] where he was treated in the past to get details surrounding the placement of pancreatic stent. -Since patient is not currently a candidate for MRI given unclear details about pancreatic stenting, would suggest proceeding with IR guided biopsy/aspiration of this hepatic lesion. Case was discussed with Dr. Brewster and he is actually in agreement with this approach and states that he will order the above-mentioned procedure. -Patient's tumor markers, his AFP and CA 19-9, are normal which is reassuring -If biopsy of liver lesion shows abscess then obviously patient will need treatment per infectious disease and they are on the case. Alternatively, if lesion is consistent with malignancy then this will need to be addressed by heme/onc who is also on case -At present time, no further GI recommendations or active issues -GI will sign off, please call with further questions Digitally Signed by SMITH MCKEON MD on 11/15/2023 03:55 PM [id number] Infectious disease Consult note Date of Service 11/15/2023 Reason for Consultation Liver abscess Referring Physician Dr. Brewster History of Present Illness Patient is a 62-year-old male with past medical history of chronic pancreatitis, type 2 diabetes mellitus osteoarthritis spinal stenosis TIA, initially presented to the emergency room on 11/12/2023 with complaints of numbness affecting the left side of the face the neck and left upper extremity. Patient presented to emergency room had a stroke workup started CT scan of the head obtained showed no acute intracranial hemorrhage CT angio head and neck without any evidence of major arterial occlusion or stenosis neurology subsequently consulted who have ordered MRI and EEG. Patient subsequently had a CT abdomen and pelvis which showed masslike prominence of the head of the pancreas with prominent atrophy of pancreatic body and tail focal pancreatitis could have this appearance. Hyacinth hepatis adenopathy, reactive hyperplastic inflammatory or neoplastic, small amount of fluid in the lesser sacand prominent central and inferior liver abnormality necrotic neoplasm and intrahepatic abscesses at the leading considerations. Subsequently patient had ultrasound of the right upper quadrant that showed a large complex liver lesion liver abscess should be the primary consideration. Gastroenterology service obtained workup for liver lesion, MRI liver and MRI pancreas is ordered. GI service also ordered AFP tumor marker which is currently pending. ID consulted given concern for liver abscess. Patient reports 1 episode of subjective fever prior to presentation he denies any chills he reportsthat he has had several episodes of pancreatitis flare. He is reports that for the last 1 month he is having abdominal pain across his upper abdomen. Review of Systems 12 point review of systems is reviewed and is negative except for noted above. Physical Exam Vitals and Measurements T: 36.7 C (Oral) TMIN: 36.4 C (Oral) TMAX: 36.7 C (Oral) HR: 87 RR: 16 BP: 110/78 SpO2: 93% Weight Dosing Weight: 99 kg (11/12/23) Dosing Weight: 99 kg (11/12/23) General Appearance: Patient is Elderly male who is sitting up in the bed alert and awake HEENT: Atraumatic normocephalic, EOMI Neck: Neck supple oral mucosa moist Cardiac: first and second heart sounds audible Lungs: Clear to auscultation bilaterally Abdomen: Soft tender to palpation in the right upper quadrant and epigastrium no rebound Extremities: No lower extremity edema Neurological: Grossly non focal Skin: No rash Lab Results 11/14 11:20 WBC: 10.3 Hgb: 10.0 L Hct: 29.8 L Platelet: 290 Neutrophil %: 81.6 H Glucose Level: 212 H Sodium Level: 134 L Potassium Level: 4.2 BUN: 10.0 Creatinine Lvl (s): 0.76 11/13 18:13 Glucose Level: 126 H Sodium Level: 138 Potassium Level: 4.3 BUN: 10.0 Creatinine Lvl (s): 0.91 11/13 08:38 WBC: 11.4 H Hgb: 10.7 L Hct: 32.6 L Platelet: 309 Neutrophil %: 84.8 H Imaging Results and Diagnostics US Abdomen Limited Result Date: November 14, 2023 Verified By: VÍCTOR CLEMENT MD CLINICAL STATEMENT: IMPRESSION: Large complex liver lesion. The liver abscess should be the primaryconsideration, necrotic neoplasm is possible but less likely. Common duct dilatation. The pancreas is completely obscured. Reactive changes of the gallbladder. No gallstones. CT Abd/Pelvis w/ IV Contrast Only Result Date: November 13, 2023 Verified By: MIREYA MARLEY MD CLINICAL STATEMENT: IMPRESSION: 1. Prominent central and inferior liver abnormality. Necrotic neoplasm andintrahepatic abscesses are the leading considerations.2. Masslike prominence of the head of the pancreas with prominent atrophy ofthe pancreatic body and tail. Focal pancreatitis could have this appearance,although pancreatic malignancy must be strongly considered.3. Hyacinth hepatis adenopathy. This could be reactive, hyperplastic,inflammatory, or neoplastic.4. Small amount of fluid in the lesser sac. CT Angiography Neck w/ Contrast Result Date: November 12, 2023 Verified By: ALYCIA HAWK MD CLINICAL STATEMENT: IMPRESSION: No hemodynamically significant stenosis of either carotid bifurcation. Incidental note of a 6 mm left internal mammary lymph node of unknownclinical significance. Correlate clinically andconsider gwync-ceuwapwjhe-ru as well as correlating with patient history for any evidence ofcancer history, including breast. Degenerative disc disease resulting in areas of suspected mild to moderatespinal canal narrowing. Correlate with any radiculopathy. Periapical lucencies. Dental consultationrecommended. Heterogeneous appearance of the bones which is nonspecific and may be seenwith normal aging, bone marrow reconversion, blood cell disorders or possiblemetabolic disorders. Findings suggestive of acute sinusitis as above. I have personally reviewed the images of this examination and agree with theresident's findings and interpretation. CT Angiography Head w/ Contrast Result Date: November 12, 2023 Verified By: ALYCIA HAWK MD CLINICAL STATEMENT: IMPRESSION: No evidence of major arterial occlusion, aneurysm, or significant stenosis. CT Head or Brain w/o Contrast Result Date: November 12, 2023 Verified By: AR PRIETO MD CLINICAL STATEMENT: IMPRESSION: No acute intracranial hemorrhage. Small chronic appearing insult in the right posteriortemporal-occipitallobe. Chronic appearing small insult in the right thalamus. XR Chest 1 View Result Date: November 12, 2023 Verified By: MIREYA MARLEY MD CLINICAL STATEMENT: IMPRESSION: Hypoventilatory changes, no other acute finding. Assessment/Plan Patient is a 62-year-old male with history of chronic pancreatitis type 2 diabetes mellitus TIA spinal stenosis osteoarthritis initially presented to the hospital with numbness involving the left side of the neck face and upper extremity and had stroke workup. Subsequently patient noted to have abnormal appearing lesion on the CT abdomen and pelvis in the liver. Which showed prominent central andinferior liver abnormality, necrotic neoplasm versus intrahepatic abscess. GI service subsequently evaluated the patient obtain right upper quadrant ultrasound which shows a large complex liver lesion, liver abscess would be primary consideration ID hence consulted. Patient did come in with leukocytosis of 15,000. Further workup including MRI liver and MRI pancreas is pending. Workup for malignancy is also pending. Agree with Sang. We will obtain 2 sets of blood cultures. Would await above-mentioned workup. Eventually patient will require biopsy of the liver lesion for definitive diagnosis of malignancy versus abscess. ID to follow. Procedure/Surgical History No qualifying data available. Medications Inpatient aspirin, 81 mg= 1 tab(s), Oral, qDay Claritin, 10 mg= 1 tab(s), Oral, qDay Dextrose 50% IV Push, 12.5 gram(s)= 25 mL, IV Push, AsDirected, PRN Dilaudid, 0.5 mg= 0.5 mL, IV Push, q3h, PRN Dulcolax Laxative, 10 mg= 2 tab(s), Oral, qDay, PRN HumaLOG 100 units/mL injectable solution VIAL, 5 unit(s)= 0.05 mL, Subcutaneous, TIDAC HumaLOG 100 units/mL subcutaneous solution, Give 0-10 units/dose, Subcutaneous, TIDAC hydrOXYzine pamoate, 50 mg= 1 cap(s), Oral, TID, PRN Lantus, 16 unit(s)= 0.16 mL, Subcutaneous (INT), qHS Lovenox, 40 mg= 0.4 mL, Subcutaneous, qDay Maalox, 30 mL, Oral, q2h, PRN melatonin, 3 mg= 1 tab(s), Oral, qHS, PRN metFORMIN 500 mg oral tablet (IR), 1000 mg= 2 tab(s), Oral, BID montelukast, 10 mg= 1 tab(s), Oral, qDay NS 1,000 mL, 1000 mL, Intravenous oxyCODONE 10 mg oral tablet, 10 mg= 1 tab(s), Oral, q4h, PRN oxyCODONE 5 mg oral tablet ( IMMEDIATE release ), 5 mg= 1 tab(s), Oral, q4h, PRN rosuvastatin, 40 mg= 2 tab(s), Oral, qDay Senokot S, 1 tab(s), Oral, BID, PRN sertraline, 50 mg= 1 tab(s), Oral, qDay traZODone, 100 mg= 1 tab(s), Oral, qHS Tylenol, 650 mg= 2 tab(s), Oral, q4h, PRN Tylenol, 650 mg= 1 supp, Rectal, q4h, PRN Zofran, 4 mg= 2 mL, IV Push, q4h, PRN Zosyn, 3.375 gram(s)= 50 mL, IV Piggyback, q8hr Home ciprofloxacin 500 mg oral tablet, 500 mg= 1 tab(s), Oral, BID, Current Antibiotic HumaLOG KwikPen 100 units/mL injectable PEN, 5 unit(s), Subcutaneous, TIDAC Lantus Solostar Pen 100 units/mL 3 mL Pen, 25 unit(s), Subcutaneous, BID metFORMIN 1000 mg oral tablet (IR), 1000 mg= 1 tab(s), Oral, BID montelukast 10 mg oral tablet, 10 mg= 1 tab(s), Oral, qDay rosuvastatin 40 mg oral tablet, 40 mg= 1 tab(s), Oral, qDay sertraline 50 mg oral tablet, 50 mg= 1 tab(s), Oral, qDay traZODone 100 mg oral tablet, 100 mg= 1 tab(s), Oral, qHS Xyzal 5 mg oral tablet, 5 mg= 1 tab(s), Oral, qDay Allergies erythromycin Immunizations No qualifying data available. Digitally Signed by FLOR CHRISTIE MD on 11/15/2023 03:37 PM [facility] [id number] Neurology Progress note Date of Service November 15, 2023 Chief Complaint Left-sided deficits Subjective Patient seen and examined today. He is alert and orient x 3. He appears much improved yesterday. Headache is improved. States mild headache persists otherwise, improved. No new left-sided difficulties or deficits. No acute events overnight. Objective Vitals and Measurements T: 36.5 C (Oral) TMIN: 36.5 C (Oral) TMAX: 36.9 C (Oral) HR: 81 (Monitored) RR: 17 BP: 109/61 SpO2:95% Intake and Output 7AM Yesterday to 7AM Today Intake and Output (Last 24 hours) Intake Oral Intake 680.00 Supplement Intake 360.00 Output Urine Voided 1100.00 Stool Count 0.00 Urine Count 2.00 Total Summary Total Intake 1040.00 Total Output 1100.00 Fluid Balance -60.00 Physical Exam Orientation: oriented to person, hospital, and month Language: normal fluency, normal simple comprehension Speech: non-dysarthric Cranial Nerves: Pupils: 4mm -> 2mm bilaterally Visual [place]: full to confrontation bilaterally CN III, IV, : EOMI. No sustained nystagmus CN V: reduced sensation to light touch and temp on the left CN VII: face symmetric at rest. Facial muscle strength intact CN VIII: intact grossly Sensation: Light touch: reduced in LUE& LLE Motor: Involuntary movements: none Strength: LUE: 5/5 proximally, 5/5 distally RUE: 5/5 proximally, 5/5 distally LLE: 5/5 proximally, 5/5 distally RLE: 5/5 proximally, 5/5 distally Reflexes: R L B 1 1 BR 1 1 P 1 1 Toes down down Coordination: FNF intact bilaterally Weight Dosing Weight: 99 kg (11/12/23) Dosing Weight: 99 kg (11/12/23) Medications Medications (25) Active Scheduled: (12) aspirin 81 mg EC 81 mg 1 tab(s), Oral, qDay enoxaparin 40 mg/ 0.4mL syringe 40 mg 0.4 mL, Subcutaneous, qDay insulin glargine 10 unit(s) 0.1 mL, Subcutaneous (INT), qDay insulin lispro 100 units/mL Soln (3 mL) Give 0-10 units/dose, Subcutaneous, TIDAC insulin lispro 100 units/mL Soln (3 mL) 5 unit(s) 0.05 mL, Subcutaneous, TIDAC loratadine 10 mg Tablet 10 mg 1 tab(s), Oral, qDay metformin 500 mg Tablet 1,000 mg 2 tab(s), Oral, BID montelukast 10 mg Tablet 10 mg 1 tab(s), Oral, qDay piperacillin-tazobactam PMX 3.375 gram(s) 50 mL, IV Piggyback, q8hr rosuvastatin 20 mg tablet 40 mg 2 tab(s), Oral, qDay sertraline 50 mg tablet 50 mg 1 tab(s), Oral, qDay traZODONE 100 mg Tablet 100 mg 1 tab(s), Oral, qHS Continuous: (1) NS (0.9% nacl) 1,000 mL 1,000 mL, Intravenous, 150 mL/hr PRN: (12) acetaminophen 325 mg Tablet 650 mg 2 tab(s), Oral, q4h acetaminophen 650 mg Suppository 650 mg 1 supp, Rectal, q4h Al hydrox/Mg hydrox/simethicone 200-200-20 mg/5 mL Susp UD 30 mL, Oral, q2h bisacodyl 5 mg EC tablet 10 mg 2 tab(s), Oral, qDay dextrose 50% Solution Disp syringe 50 mL 12.5 gram(s) 25 mL, IV Push, AsDirected docusate-senna (Senokot S) 50 mg-8.6 mg Tablet 1 tab(s), Oral, BID hydromorphone 1 mg/mL (1mL) INJ 1 mg 1 mL, IV Push, q3h hydroxyzine pamoate 50 mg capsule 50 mg 1 cap(s), Oral, TID melatonin 3 mg tablet 3 mg 1 tab(s), Oral, qHS ondansetron 2 mg/ 1 mL 2 mL INJ 4 mg 2 mL, IV Push, q4h oxyCODONE 10 mg Tab (Immediate Release) 10 mg 1 tab(s), Oral, q4h oxycodone 5 mg tablet (immediate release) 5 mg 1 tab(s), Oral, q4h Lab Results 11/13 18:13 Glucose Level: 126 H Sodium Level: 138 Potassium Level: 4.3 BUN: 10.0 Creatinine Lvl (s): 0.91 11/13 08:38 WBC: 11.4 H Hgb: 10.7 L Hct: 32.6 L Platelet: 309 Neutrophil %: 84.8 H Imaging Results and Diagnostics US Abdomen Limited Result Date: November 14, 2023 Verified By: VÍCTOR CLEMENT MD CLINICAL STATEMENT: IMPRESSION: Large complex liver lesion. The liver abscess should be the primaryconsideration, necrotic neoplasm is possible but less likely. Common duct dilatation. The pancreas is completely obscured. Reactive changes of the gallbladder. No gallstones. CT Abd/Pelvis w/ IV Contrast Only Result Date: November 13, 2023 Verified By: MIREYA MARLEY MD CLINICAL STATEMENT: IMPRESSION: 1. Prominent central and inferior liver abnormality. Necrotic neoplasm andintrahepatic abscesses are the leading considerations.2. Masslike prominence of the head of the pancreas with prominent atrophy ofthe pancreatic body and tail. Focal pancreatitis could have this appearance,although pancreatic malignancy must be strongly considered.3. Hyacinth hepatis adenopathy. This could be reactive, hyperplastic,inflammatory, or neoplastic.4. Small amount of fluid in the lesser sac. CT Angiography Neck w/ Contrast Result Date: November 12, 2023 Verified By: ALYCIA HAWK MD CLINICAL STATEMENT: IMPRESSION: No hemodynamically significant stenosis of either carotid bifurcation. Incidental note of a 6 mm left internal mammary lymph node of unknownclinical significance. Correlate clinically andconsider oonom-buxbwyucel-jd as well as correlating with patient history for any evidence ofcancer history, including breast. Degenerative disc disease resulting in areas of suspected mild to moderatespinal canal narrowing. Correlate with any radiculopathy. Periapical lucencies. Dental consultationrecommended. Heterogeneous appearance of the bones which is nonspecific and may be seenwith normal aging, bone marrow reconversion, blood cell disorders or possiblemetabolic disorders. Findings suggestive of acute sinusitis as above. I have personally reviewed the images of this examination and agree with theresident's findings and interpretation. CT Angiography Head w/ Contrast Result Date: November 12, 2023 Verified By: ALYCIA HAWK MD CLINICAL STATEMENT: IMPRESSION: No evidence of major arterial occlusion, aneurysm, or significant stenosis. CT Head or Brain w/o Contrast Result Date: November 12, 2023 Verified By: AR PRIETO MD CLINICAL STATEMENT: IMPRESSION: No acute intracranial hemorrhage. Small chronic appearing insult in the right posteriortemporal-occipitallobe. Chronic appearing small insult in the right thalamus. XR Chest 1 View Result Date: November 12, 2023 Verified By: MIREYA MARLEY MD CLINICAL STATEMENT: IMPRESSION: Hypoventilatory changes, no other acute finding. Assessment/Plan Left arm spasm Left-sided weakness Headache Probably TIA, r/o acute stroke, less likely focal seizures. A spasm related to radiculopathy would also be in the DDX, but would not be expected to cause fannie-anesthesia. Patient being seen by oncology for possible malignancy. Brain MRI w/&w/o to r/o stroke, mets, or other etiology. Brain and C-spine MRI ordered & pending. EEG- no seizures. Continue just ASA. ARNOLD improved. No new neuro deficits on exam. 30 Day cardionet on discharge OP f/u with neurology in 2-4 weeks Discussed with , pt, and battery recharger. Case discussed with collaborating physician, who agrees with plan. Will follow peripherally and add further recommendations or formally follow-up as needed. Please call with any concerns or questions. Time Spent I spent a total of 36 minutes reviewing the patient s diagnostic labs/tests, seeing and examining the patient and documenting in the medical record. Digitally Signed by STEFANIA SEYMOUR on 11/15/2023 10:45 AM [facility] [id number] Oncology Consult note Date of Service 11/14/2023 Reason for Consultation rule out malignancy This is a split/shared visit between Dr. Perez and myself History of Present Illness Patient is a 62-year-old male with past medical history of chronic pancreatitis. Patient reported to the hospital on 11/11 with abdominal pain and left upper extremity/facial numbness. CT of the head showed small chronic appearing insult in the right posterior temporal occipital lobe. MRI brain pending. Neurology is following. He had a CT abdomen/pelvis that showed prominent central inferior liverabnormality suggesting a chronic neoplasm or intrahepatic abscess, masslike prominence of the head of the pancreas, hyacinth hepatis adenopathy. Tumor markers ordered. MRI of the liver and pancreas ordered. Today patient is resting in bed, family at bedside. Patient reports he came into the hospital with left upper extremity and facial numbness that started on Monday. He also reports abdominal pain thatstarted roughly a month ago. He reports history of chronic pancreatitis since 2018. He reports decreased appetite and diarrhea in the past month, episode of nausea and vomiting on Monday. He also reports headaches, dizziness and shortness of breath. He currently is rating his pain 8 out of 10. Patient reports similar symptoms in the past with pancreatitis. Patient denies any personal or family history of cancer. He reports tobacco use since he was 13 years old. He also reports history of daily alcohol use and states lately he has been drinking 2 pints every other day. reports over the past 3 weeks he has stopped due to his symptoms. He does report colonoscopy over 10 years ago that wasnormal. Lab Results Test Name Test Result Date/TimeWBC 11.4 10^3/mcL 11/14/2023 08:38 EDT Hgb 10.7 G/dL 11/14/2023 08:38 EDT Platelet 309 10^3/mcL 11/14/2023 08:38 EDT Review of Systems 14 system review is negative except as charted in the HPI Physical Exam Vitals and Measurements T: 36.6 C (Oral) TMIN: 36.5 C (Oral) TMAX: 37.3 C (Oral) HR: 88 (Monitored) RR: 16 BP: 93/71 SpO2: 92% General Appearance: no acute distress Eyes: PERRLA Nose: External nose normal Ears: External ears normal Throat: Trachea midline Neck: no mass Lymph nodes: Not palpable Cardiac: RRR S1 and S2 no murmur Lungs: clear bilaterally Abdomen: soft non-tender BSx4 Neurological: A&Ox3 follows commands Skin: warm dry and intact Musculoskeletal: strength intact Psychiatric: appropriate mood and affect Weight Dosing Weight: 99 kg (11/12/23) Dosing Weight: 99 kg (11/12/23) Lab Results 11/13 08:38 WBC: 11.4 H Hgb: 10.7 L Hct: 32.6 L Platelet: 309 Neutrophil %: 84.8 H 11/12 06:49 WBC: 16.8 H Hgb: 11.3 L Hct: 33.6 L Platelet: 351 Neutrophil %: 86.4 H Glucose Level: 119 H Sodium Level: 138 Potassium Level: 4.1 BUN: 10.0 Creatinine Lvl (s): 1.01 Imaging Results and Diagnostics (11/13/2023 13:[address] Abd/Pelvis w/ IV Contrast Only) IMPRESSION: 1. Prominent central and inferior liver abnormality. Necrotic neoplasm and intrahepatic abscesses are the leading considerations. 2. Masslike prominence of the head of the pancreas with prominent atrophy of the pancreatic body and tail. Focal pancreatitis could have this appearance, although pancreatic malignancy must be strongly considered. 3. Hyacinth hepatis adenopathy. This could be reactive, hyperplastic, inflammatory, or neoplastic. 4. Small amount of fluid in the lesser sac. [1] Assessment/Plan Strokelike symptoms, CT of the head showed chronic appearing insult in the right posterior temporaloccipital lobe, neurology following, MRI brain pending Acute on chronic pancreatitis, CT abdomen/pelvis showed prominent central inferior liver abnormality suggesting a chronic neoplasm or intrahepatic abscess, masslike prominence of the head of the pancreas, hyacinth hepatitis adenopathy, GI following, patient on Zosyn Concern for malignancy, seen on CT abdomen/pelvis, MRI of the liver and MRI of pancreas ordered, AFP and CA 19-9 ordered, if MRI liver shows suspicious lesion would recommend liver biopsy Discussed with Dr. Perez. Please see addendum for further recommendations Procedure/Surgical History No qualifying data available. Medications aspirin, 81 mg= 1 tab(s), Oral, qDay ciprofloxacin 500 mg oral tablet, 500 mg= 1 tab(s), Oral, BID, Current Antibiotic Claritin, 10 mg= 1 tab(s), Oral, qDay Dextrose 50% IV Push, 12.5 gram(s)= 25 mL, IV Push, AsDirected, PRN Dilaudid, 1 mg= 1 mL, IV Push, q3h, PRN Dulcolax Laxative, 10 mg= 2 tab(s), Oral, qDay, PRN HumaLOG 100 units/mL injectable solution VIAL, 5 unit(s)= 0.05 mL, Subcutaneous, TIDAC HumaLOG 100 units/mL subcutaneous solution, Give 0-10 units/dose, Subcutaneous, TIDAC HumaLOG KwikPen 100 units/mL injectable PEN, 5 unit(s), Subcutaneous, TIDAC hydrOXYzine pamoate, 50 mg= 1 cap(s), Oral, TID, PRN Lantus, 10 unit(s)= 0.1 mL, Subcutaneous (INT), qDay Lantus Solostar Pen 100 units/mL 3 mL Pen, 25 unit(s), Subcutaneous, BID Lovenox, 40 mg= 0.4 mL, Subcutaneous, qDay Maalox, 30 mL, Oral, q2h, PRN melatonin, 3 mg= 1 tab(s), Oral, qHS, PRN metFORMIN 1000 mg oral tablet (IR), 1000 mg= 1 tab(s), Oral, BID metFORMIN 500 mg oral tablet (IR), 1000 mg= 2 tab(s), Oral, BID montelukast, 10 mg= 1 tab(s), Oral, qDay montelukast 10 mg oral tablet, 10 mg= 1 tab(s), Oral, qDay NS 1,000 mL, 1000 mL, Intravenous oxyCODONE 10 mg oral tablet, 10 mg= 1 tab(s), Oral, q4h, PRN oxyCODONE 5 mg oral tablet ( IMMEDIATE release ), 5 mg= 1 tab(s), Oral, q4h, PRN rosuvastatin, 40 mg= 2 tab(s), Oral, qDay rosuvastatin 40 mg oral tablet, 40 mg= 1 tab(s), Oral, qDay Senokot S, 1 tab(s), Oral, BID, PRN sertraline, 50 mg= 1 tab(s), Oral, qDay sertraline 50 mg oral tablet, 50 mg= 1 tab(s), Oral, qDay traZODone, 100 mg= 1 tab(s), Oral, qHS traZODone 100 mg oral tablet, 100 mg= 1 tab(s), Oral, qHS Tylenol, 650 mg= 2 tab(s), Oral, q4h, PRN Tylenol, 650 mg= 1 supp, Rectal, q4h, PRN Xyzal 5 mg oral tablet, 5 mg= 1 tab(s), Oral, qDay Zofran, 4 mg= 2 mL, IV Push, q4h, PRN Zosyn, 3.375 gram(s)= 50 mL, IV Piggyback, q8hr Allergies erythromycin [1] CT Abd/Pelvis w/ IV Contrast Only; MIREYA MARLEY MD 11/13/2023 13:04 EDT Digitally Signed by CANDELARIO DOMINGUEZ on 11/14/2023 03:12 PM [id number] Gastro[facility]ology Progress note Date of Service November 14, 2023 Chief Complaint History of chronic pancreatitis, abdominal pain and abnormal CT scan of abdomen Subjective He feels better. The abdominal pain is less. There is no vomiting. He tolerated clear liquid diet. There is no diarrhea. An ultrasound showed large complex liver lesion measuring 11.4 cm which is an abscess versus necrotic neoplasm. Labs showed WBC of 11.4, hemoglobin 10.7 and platelets 309. Objective Vitals and Measurements T: 36.5 C (Oral) TMIN: 36.5 C (Oral) TMAX: 37.3 C (Oral) HR: 86 (Monitored) RR: 16 BP: 124/69 SpO2:93% Intake and Output 7AM Yesterday to 7AM Today Intake and Output (Last 24 hours) Intake Oral Intake 340.00 Administration Information 1200.00 Supplement Intake 240.00 Output Urine Voided 1495.00 Stool Count 0.00 Urine Count 1.00 Total Summary Total Intake 1780.00 Total Output 1495.00 Fluid Balance 285.00 Physical Exam Eyes: No icterus or pallor ENMT: No thyromegaly or lymphadenopathy CVS: No lifts or heaves. No murmur or rub. Respiratory: Chest was clear to auscultation and percussion Gastrointestinal: Abdomen was soft and nontender. Liver and spleen are not palpable. Bowel sounds are normal. Neurological: Patient was alert and oriented 3. There was no focal neurological deficit. Psych: Mood and affect are normal. Skin: The skin was warm and there was no jaundice. Weight Dosing Weight: 99 kg (11/12/23) Dosing Weight: 99 kg (11/12/23) Medications Medications (25) Active Scheduled: (12) aspirin 81 mg EC 81 mg 1 tab(s), Oral, qDay enoxaparin 40 mg/ 0.4mL syringe 40 mg 0.4 mL, Subcutaneous, qDay insulin glargine 10 unit(s) 0.1 mL, Subcutaneous (INT), qDay insulin lispro 100 units/mL Soln (3 mL) Give 0-10 units/dose, Subcutaneous, TIDAC insulin lispro 100 units/mL Soln (3 mL) 5 unit(s) 0.05 mL, Subcutaneous, TIDAC loratadine 10 mg Tablet 10 mg 1 tab(s), Oral, qDay metformin 500 mg Tablet 1,000 mg 2 tab(s), Oral, BID montelukast 10 mg Tablet 10 mg 1 tab(s), Oral, qDay piperacillin-tazobactam PMX 3.375 gram(s) 50 mL, IV Piggyback, q8hr rosuvastatin 20 mg tablet 40 mg 2 tab(s), Oral, qDay sertraline 50 mg tablet 50 mg 1 tab(s), Oral, qDay traZODONE 100 mg Tablet 100 mg 1 tab(s), Oral, qHS Continuous: (1) NS (0.9% nacl) 1,000 mL 1,000 mL, Intravenous, 150 mL/hr PRN: (12) acetaminophen 325 mg Tablet 650 mg 2 tab(s), Oral, q4h acetaminophen 650 mg Suppository 650 mg 1 supp, Rectal, q4h Al hydrox/Mg hydrox/simethicone 200-200-20 mg/5 mL Susp UD 30 mL, Oral, q2h bisacodyl 5 mg EC tablet 10 mg 2 tab(s), Oral, qDay dextrose 50% Solution Disp syringe 50 mL 12.5 gram(s) 25 mL, IV Push, AsDirected docusate-senna (Senokot S) 50 mg-8.6 mg Tablet 1 tab(s), Oral, BID hydromorphone 1 mg/mL (1mL) INJ 1 mg 1 mL, IV Push, q3h hydroxyzine pamoate 50 mg capsule 50 mg 1 cap(s), Oral, TID melatonin 3 mg tablet 3 mg 1 tab(s), Oral, qHS ondansetron 2 mg/ 1 mL 2 mL INJ 4 mg 2 mL, IV Push, q4h oxyCODONE 10 mg Tab (Immediate Release) 10 mg 1 tab(s), Oral, q4h oxycodone 5 mg tablet (immediate release) 5 mg 1 tab(s), Oral, q4h Lab Results 11/13 08:38 WBC: 11.4 H Hgb: 10.7 L Hct: 32.6 L Platelet: 309 Neutrophil %: 84.8 H 11/12 06:49 WBC: 16.8 H Hgb: 11.3 L Hct: 33.6 L Platelet: 351 Neutrophil %: 86.4 H Glucose Level: 119 H Sodium Level: 138 Potassium Level: 4.1 BUN: 10.0 Creatinine Lvl (s): 1.01 EKG No qualifying data available. Assessment/Plan Orders: AFP tumor marker, 11/14/23 5:00:00 EDT, Next AM Draw (one day only), Blood, Once, Stop date 11/14/23 5:00:00 EDT Carbohydrate Antigen 19-9(CA 19-9), 11/14/23 5:00:00 EDT, Next AM Draw (one day only), Blood, Once,Stop date 11/14/23 5:00:00 EDT Diet Order, 11/14/23 14:40:00 EDT, Soft Diet, Fat: Low, Constant Order, : N/A, : N/A Diet Order, 11/13/23 15:39:00 EDT, Clear Liquid Diet, Constant Order, : N/A, : N/A IgG, Subclasses(1-4), 11/13/23 15:44:00 EDT, Routine, Blood, Once, Stop date 11/13/23 16:00:00 EDT MRI Liver, 11/13/23 15:39:00 EDT, 11/13/23 15:39:00 EDT, Routine, Pancreatitis, R/O gallstones, Full code, MTT with Monitor, Isolation: None, IV: Yes, Oxygen: No, Diabetes: Yes, Able to Sign Consent:Yes, : N/A, Wt k, Prior Valve Replacement: No, ME5N MRI Pancreas, 11/13/23 15:39:00 EDT, 11/13/23 15:39:00 EDT, Routine, Chronic pancreatitis, mass like head of pancreas, Full code, MTT with Monitor, Isolation: None, IV: Yes, Oxygen: No, Diabetes: Yes, Able to Sign Consent: Yes, : N/A, Wt k, Prior Valve... Pancreatic Elastase, Fecal, 11/13/23 15:43:00 EDT, Routine, Stool, Once, Nurse Collect, Stop date 11/13/23 15:44:00 EDT Assessment: 1. Acute flareup of chronic pancreatitis. His symptoms seem to be resolving. The etiology of pancreatitis is most likely alcohol 2. Abnormal CT scan of abdomen which showed heterogeneous density in the liver measuring 11.8 cm and some discrete areas of hypodensity. Pancreatic head was prominent with atrophic or absent body and tail of pancreas. 3. Abnormal ultrasound suggestive of large complex liver lesion which may be an abscess or necroticneoplasm Plan: 1. Awaiting hematology consult 2. He is awaiting MRI of the liver and pancreas pending clearance from [place] because of previous pancreatic stent placements 3. Advance diet 4. Consider infectious disease consult Digitally Signed by ATIF MENDEZ MD on 11/14/2023 02:45 PM [id number] Note* Exam Date Time Procedure Performing Provider Status 11/14/23 1:13 PM Echocardiogram, Adul t with Bubble Study- Auth (Verified) [facility] 05-21-2024 Mental health Consult note Date of Service November 14, 2023 Reason for Consultation Anxiety and irritability Referring Physician Dr. Brewster History of Present Illness Patient is a 62-year-old gentleman with a long history of alcohol use disorder. He is hospitalized for pancreatitis and neurologic symptoms. He was noted to be anxious and irritable with staff and therefore I was asked to meet with him. On interview this afternoon the patient is resting comfortably and his is at bedside. He perseverates on frustration with some of the aspects of the care he received in the hospital. He denies pervasive depressed mood, anhedonia, or suicidal thoughts. He reports poor sleep. He reports some degree of anxiety. There are no signs of elevated mood or psychosis present. He reports until 3 weeks ago he was drinking heavily, sometimes up to "2 pints of liquor a day", though reports he stopped alcohol entirely 3 weeks ago, underwent some degree of alcohol withdrawal symptoms, and his confirms the history, agreeing that he has not consumed any alcohol over the past 3 weeks. Past psychiatric history: Patient denies any history of mental health treatment of any kind. He denies any history of psychiatric hospitalization or suicide attempt. He does have a prescriptions for sertraline and trazodone prescribed by his primary care doctor at home. He reports a long history of alcohol use disorder since childhood, stating "when we were kids we are allowed to drink". He reports a multitude of substance abuse treatment programs years ago. Family psychiatric history: He reports that 2 of his brothers struggle with substance use disorder. 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 He lives with his of many years. Medical status: Currently the patient is resting comfortably, in no distress. He is afebrile and his vital signs are within normal limits. Laboratory studies including CBC, urinalysis, metabolic panel, liver function tests were reviewed and generally reassuring for my purposes. Hemoglobin A1c is elevated at over 11%. Lipase is within normal limits. CT scan of the head on admission showed a chronic appearing small insult in the right thalamus and a small chronic appearing insult in the right posterior temporal occipital lobe. He is being treated with parenteral antibiotics for pancreatitis. He is being followed by the neurology service for neurologic symptoms thus far attributed to a TIA.. He is receiving opioids for abdominal pain. Mental status examination: Patient is extensively alert and oriented. Speech is fluent. Mood is described as "frustrated". Affect is anxious and irritable. Thought process is circumstantial. Thought content is negative for active suicidal and homicidal ideation. There are no psychotic symptoms present. Insight and judgment are fair. Diagnosis: Adjustment disorder with anxiety. Alcohol use disorder with alcohol dependence. Discussion: This 62-year-old gentleman with longstanding alcohol dependence is hospitalized for medical complications from alcohol use disorder as well as associated neurologic symptoms. He has continued Zoloft and trazodone during his hospital stay. He does not perceive the need for any additional mental health or substance abuse treatment resources. He states that he stopped drinking 3 weeks ago, does not intend to resume drinking, and feels confident in his ability to follow through with this plan. There is no evidence to suggest he represents a risk of harm to himself or others and there is no indication for an acute inpatient psychiatric hospitalization. His is comfortable with the treatment plan and his safety. Recommendation: Patient declines any mental health or substance abuse treatment resources. Physical Exam Vitals and Measurements T: 36.5 C (Oral) TMIN: 36.5 C (Oral) TMAX: 37.3 C (Oral) HR: 86 (Monitored) RR: 16 BP: 124/69 SpO2:93% Weight Dosing Weight: 99 kg (11/12/23) Dosing Weight: 99 kg (11/12/23) Lab Results 11/13 08:38 WBC: 11.4 H Hgb: 10.7 L Hct: 32.6 L Platelet: 309 Neutrophil %: 84.8 H 11/12 06:49 WBC: 16.8 H Hgb: 11.3 L Hct: 33.6 L Platelet: 351 Neutrophil %: 86.4 H Glucose Level: 119 H Sodium Level: 138 Potassium Level: 4.1 BUN: 10.0 Creatinine Lvl (s): 1.01 Procedure/Surgical History No qualifying data available. Medications Inpatient aspirin, 81 mg= 1 tab(s), Oral, qDay Claritin, 10 mg= 1 tab(s), Oral, qDay Dextrose 50% IV Push, 12.5 gram(s)= 25 mL, IV Push, AsDirected, PRN Dilaudid, 1 mg= 1 mL, IV Push, q3h, PRN Dulcolax Laxative, 10 mg= 2 tab(s), Oral, qDay, PRN HumaLOG 100 units/mL injectable solution VIAL, 5 unit(s)= 0.05 mL, Subcutaneous, TIDAC HumaLOG 100 units/mL subcutaneous solution, Give 0-10 units/dose, Subcutaneous, TIDAC hydrOXYzine pamoate, 50 mg= 1 cap(s), Oral, TID, PRN Lantus, 10 unit(s)= 0.1 mL, Subcutaneous (INT), qDay Lovenox, 40 mg= 0.4 mL, Subcutaneous, qDay Maalox, 30 mL, Oral, q2h, PRN melatonin, 3 mg= 1 tab(s), Oral, qHS, PRN metFORMIN 500 mg oral tablet (IR), 1000 mg= 2 tab(s), Oral, BID montelukast, 10 mg= 1 tab(s), Oral, qDay NS 1,000 mL, 1000 mL, Intravenous oxyCODONE 10 mg oral tablet, 10 mg= 1 tab(s), Oral, q4h, PRN oxyCODONE 5 mg oral tablet ( IMMEDIATE release ), 5 mg= 1 tab(s), Oral, q4h, PRN rosuvastatin, 40 mg= 2 tab(s), Oral, qDay Senokot S, 1 tab(s), Oral, BID, PRN sertraline, 50 mg= 1 tab(s), Oral, qDay traZODone, 100 mg= 1 tab(s), Oral, qHS Tylenol, 650 mg= 2 tab(s), Oral, q4h, PRN Tylenol, 650 mg= 1 supp, Rectal, q4h, PRN Zofran, 4 mg= 2 mL, IV Push, q4h, PRN Zosyn, 3.375 gram(s)= 50 mL, IV Piggyback, q8hr Home ciprofloxacin 500 mg oral tablet, 500 mg= 1 tab(s), Oral, BID, Current Antibiotic HumaLOG KwikPen 100 units/mL injectable PEN, 5 unit(s), Subcutaneous, TIDAC Lantus Solostar Pen 100 units/mL 3 mL Pen, 25 unit(s), Subcutaneous, BID metFORMIN 1000 mg oral tablet (IR), 1000 mg= 1 tab(s), Oral, BID montelukast 10 mg oral tablet, 10 mg= 1 tab(s), Oral, qDay rosuvastatin 40 mg oral tablet, 40 mg= 1 tab(s), Oral, qDay sertraline 50 mg oral tablet, 50 mg= 1 tab(s), Oral, qDay traZODone 100 mg oral tablet, 100 mg= 1 tab(s), Oral, qHS Xyzal 5 mg oral tablet, 5 mg= 1 tab(s), Oral, qDay Allergies erythromycin Immunizations No qualifying data available. Digitally Signed by CANDELARIA VORA MD on 11/14/2023 12:29 PM [facility] CenterUelzkord34-[facility] Oncology Consult note Date of Service 11/14/2023 Reason for Consultation rule out malignancy This is a split/shared visit between Dr. Perez and myself History of Present Illness Patient is a 62-year-old male with past medical history of chronic pancreatitis. Patient reported to the hospital on 11/11 with abdominal pain and left upper extremity/facial numbness. CT of the head showed small chronic appearing insult in the right posterior temporal occipital lobe. MRI brain pending. Neurology is following. He had a CT abdomen/pelvis that showed prominent central inferior liverabnormality suggesting a chronic neoplasm or intrahepatic abscess, masslike prominence of the head of the pancreas, hyacinth hepatis adenopathy. Tumor markers ordered. MRI of the liver and pancreas ordered. Today patient is resting in bed, family at bedside. Patient reports he came into the hospital with left upper extremity and facial numbness that started on Monday. He also reports abdominal pain thatstarted roughly a month ago. He reports history of chronic pancreatitis since 2018. He reports decreased appetite and diarrhea in the past month, episode of nausea and vomiting on Monday. He also reports headaches, dizziness and shortness of breath. He currently is rating his pain 8 out of 10. Patient reports similar symptoms in the past with pancreatitis. Patient denies any personal or family history of cancer. He reports tobacco use since he was 13 years old. He also reports history of daily alcohol use and states lately he has been drinking 2 pints every other day. reports over the past 3 weeks he has stopped due to his symptoms. He does report colonoscopy over 10 years ago that wasnormal. Lab Results Test Name Test Result Date/TimeWBC 11.4 10^3/mcL 11/14/2023 08:38 EDT Hgb 10.7 G/dL 11/14/2023 08:38 EDT Platelet 309 10^3/mcL 11/14/2023 08:38 EDT Review of Systems 14 system review is negative except as charted in the HPI Physical Exam Vitals and Measurements T: 36.6 C (Oral) TMIN: 36.5 C (Oral) TMAX: 37.3 C (Oral) HR: 88 (Monitored) RR: 16 BP: 93/71 SpO2: 92% General Appearance: no acute distress Eyes: PERRLA Nose: External nose normal Ears: External ears normal Throat: Trachea midline Neck: no mass Lymph nodes: Not palpable Cardiac: RRR S1 and S2 no murmur Lungs: clear bilaterally Abdomen: soft non-tender BSx4 Neurological: A&Ox3 follows commands Skin: warm dry and intact Musculoskeletal: strength intact Psychiatric: appropriate mood and affect Weight Dosing Weight: 99 kg (11/12/23) Dosing Weight: 99 kg (11/12/23) Lab Results 11/13 08:38 WBC: 11.4 H Hgb: 10.7 L Hct: 32.6 L Platelet: 309 Neutrophil %: 84.8 H 11/12 06:49 WBC: 16.8 H Hgb: 11.3 L Hct: 33.6 L Platelet: 351 Neutrophil %: 86.4 H Glucose Level: 119 H Sodium Level: 138 Potassium Level: 4.1 BUN: 10.0 Creatinine Lvl (s): 1.01 Imaging Results and Diagnostics (11/13/2023 13:[address] Abd/Pelvis w/ IV Contrast Only) IMPRESSION: 1. Prominent central and inferior liver abnormality. Necrotic neoplasm and intrahepatic abscesses are the leading considerations. 2. Masslike prominence of the head of the pancreas with prominent atrophy of the pancreatic body and tail. Focal pancreatitis could have this appearance, although pancreatic malignancy must be strongly considered. 3. Hyacinth hepatis adenopathy. This could be reactive, hyperplastic, inflammatory, or neoplastic. 4. Small amount of fluid in the lesser sac. [1] Assessment/Plan Strokelike symptoms, CT of the head showed chronic appearing insult in the right posterior temporaloccipital lobe, neurology following, MRI brain pending Acute on chronic pancreatitis, CT abdomen/pelvis showed prominent central inferior liver abnormality suggesting a chronic neoplasm or intrahepatic abscess, masslike prominence of the head of the pancreas, hyacinth hepatitis adenopathy, GI following, patient on Zosyn Concern for malignancy, seen on CT abdomen/pelvis, MRI of the liver and MRI of pancreas ordered, AFP and CA 19-9 ordered, if MRI liver shows suspicious lesion would recommend liver biopsy Discussed with Dr. Perez. Please see addendum for further recommendations Procedure/Surgical History No qualifying data available. Medications aspirin, 81 mg= 1 tab(s), Oral, qDay ciprofloxacin 500 mg oral tablet, 500 mg= 1 tab(s), Oral, BID, Current Antibiotic Claritin, 10 mg= 1 tab(s), Oral, qDay Dextrose 50% IV Push, 12.5 gram(s)= 25 mL, IV Push, AsDirected, PRN Dilaudid, 1 mg= 1 mL, IV Push, q3h, PRN Dulcolax Laxative, 10 mg= 2 tab(s), Oral, qDay, PRN HumaLOG 100 units/mL injectable solution VIAL, 5 unit(s)= 0.05 mL, Subcutaneous, TIDAC HumaLOG 100 units/mL subcutaneous solution, Give 0-10 units/dose, Subcutaneous, TIDAC HumaLOG KwikPen 100 units/mL injectable PEN, 5 unit(s), Subcutaneous, TIDAC hydrOXYzine pamoate, 50 mg= 1 cap(s), Oral, TID, PRN Lantus, 10 unit(s)= 0.1 mL, Subcutaneous (INT), qDay Lantus Solostar Pen 100 units/mL 3 mL Pen, 25 unit(s), Subcutaneous, BID Lovenox, 40 mg= 0.4 mL, Subcutaneous, qDay Maalox, 30 mL, Oral, q2h, PRN melatonin, 3 mg= 1 tab(s), Oral, qHS, PRN metFORMIN 1000 mg oral tablet (IR), 1000 mg= 1 tab(s), Oral, BID metFORMIN 500 mg oral tablet (IR), 1000 mg= 2 tab(s), Oral, BID montelukast, 10 mg= 1 tab(s), Oral, qDay montelukast 10 mg oral tablet, 10 mg= 1 tab(s), Oral, qDay NS 1,000 mL, 1000 mL, Intravenous oxyCODONE 10 mg oral tablet, 10 mg= 1 tab(s), Oral, q4h, PRN oxyCODONE 5 mg oral tablet ( IMMEDIATE release ), 5 mg= 1 tab(s), Oral, q4h, PRN rosuvastatin, 40 mg= 2 tab(s), Oral, qDay rosuvastatin 40 mg oral tablet, 40 mg= 1 tab(s), Oral, qDay Senokot S, 1 tab(s), Oral, BID, PRN sertraline, 50 mg= 1 tab(s), Oral, qDay sertraline 50 mg oral tablet, 50 mg= 1 tab(s), Oral, qDay traZODone, 100 mg= 1 tab(s), Oral, qHS traZODone 100 mg oral tablet, 100 mg= 1 tab(s), Oral, qHS Tylenol, 650 mg= 2 tab(s), Oral, q4h, PRN Tylenol, 650 mg= 1 supp, Rectal, q4h, PRN Xyzal 5 mg oral tablet, 5 mg= 1 tab(s), Oral, qDay Zofran, 4 mg= 2 mL, IV Push, q4h, PRN Zosyn, 3.375 gram(s)= 50 mL, IV Piggyback, q8hr Allergies erythromycin [1] CT Abd/Pelvis w/ IV Contrast Only; MIREYA MARLEY MD 11/13/2023 13:04 EDT Digitally Signed by CANDELARIO DOMINGUEZ on 11/14/2023 03:12 PM [facility] [id number] Neurology Progress note Date of Service November 14, 2023 Chief Complaint Left-sided weakness Subjective Patient seen and examined today. He is alert and orient x 3. Appears anxious. Sitting on side of bed rocking back and forth. at bedside. Patient complains of a 10 out of 10 headache. No light sensitivity. Located behind bilateral eyes. He states his aching sharp and stabbing. He does have a history of headaches but this is not consistent with prior headaches. He denies history of migraines. Patient states that the left side is improved, however not back to normal. Continues to complain of tingling in the left hand. No acute events overnight. Objective Vitals and Measurements T: 36.6 C (Oral) TMIN: 36.5 C (Oral) TMAX: 37.3 C (Oral) HR: 88 (Monitored) RR: 16 BP: 93/71 SpO2: 92% Intake and Output 7AM Yesterday to 7AM Today Intake and Output (Last 24 hours) Intake Administration Information 2000.00 Oral Intake 460.00 Output Urine Voided 1395.00 Stool Count 0.00 Total Summary Total Intake 2460.00 Total Output 1395.00 Fluid Balance 1065.00 Physical Exam Grossly reduced recall and mild incoherence Orientation: oriented to person, hospital, and month Language: normal fluency, normal simple comprehension Speech: non-dysarthric anxious, restless Cranial Nerves: Pupils: 4mm -> 2mm bilaterally Visual [place]: full to confrontation bilaterally CN III, IV, : EOMI. No sustained nystagmus CN V: reduced sensation to light touch and temp on the left CN VII: face symmetric at rest. Facial muscle strength intact CN VIII: intact grossly Sensation: Light touch: reduced in LUE& LLE Motor: Involuntary movements: none Strength: LUE: 5/5 proximally, 5/5 distally RUE: 5/5 proximally, 5/5 distally LLE: 5/5 proximally, 5/5 distally RLE: 5/5 proximally, 5/5 distally Reflexes: R L B 1 1 BR 1 1 P 1 1 Toes down down Coordination: FNF intact bilaterally Weight Dosing Weight: 99 kg (11/12/23) Dosing Weight: 99 kg (11/12/23) Medications Medications (24) Active Scheduled: (11) aspirin 81 mg EC 81 mg 1 tab(s), Oral, qDay enoxaparin 40 mg/ 0.4mL syringe 40 mg 0.4 mL, Subcutaneous, qDay insulin glargine 10 unit(s) 0.1 mL, Subcutaneous (INT), qDay insulin lispro 100 units/mL Soln (3 mL) Give 0-10 units/dose, Subcutaneous, TIDAC loratadine 10 mg Tablet 10 mg 1 tab(s), Oral, qDay metformin 500 mg Tablet 1,000 mg 2 tab(s), Oral, BID montelukast 10 mg Tablet 10 mg 1 tab(s), Oral, qDay piperacillin-tazobactam PMX 3.375 gram(s) 50 mL, IV Piggyback, q8hr rosuvastatin 20 mg tablet 40 mg 2 tab(s), Oral, qDay sertraline 50 mg tablet 50 mg 1 tab(s), Oral, qDay traZODONE 100 mg Tablet 100 mg 1 tab(s), Oral, qHS Continuous: (1) NS (0.9% nacl) 1,000 mL 1,000 mL, Intravenous, 150 mL/hr PRN: (12) acetaminophen 325 mg Tablet 650 mg 2 tab(s), Oral, q4h acetaminophen 650 mg Suppository 650 mg 1 supp, Rectal, q4h Al hydrox/Mg hydrox/simethicone 200-200-20 mg/5 mL Susp UD 30 mL, Oral, q2h bisacodyl 5 mg EC tablet 10 mg 2 tab(s), Oral, qDay dextrose 50% Solution Disp syringe 50 mL 12.5 gram(s) 25 mL, IV Push, AsDirected docusate-senna (Senokot S) 50 mg-8.6 mg Tablet 1 tab(s), Oral, BID hydromorphone 1 mg/mL (1mL) INJ 1 mg 1 mL, IV Push, q3h hydroxyzine pamoate 50 mg capsule 50 mg 1 cap(s), Oral, TID melatonin 3 mg tablet 3 mg 1 tab(s), Oral, qHS ondansetron 2 mg/ 1 mL 2 mL INJ 4 mg 2 mL, IV Push, q4h oxyCODONE 10 mg Tab (Immediate Release) 10 mg 1 tab(s), Oral, q4h oxycodone 5 mg tablet (immediate release) 5 mg 1 tab(s), Oral, q4h Lab Results 11/13 08:38 WBC: 11.4 H Hgb: 10.7 L Hct: 32.6 L Platelet: 309 Neutrophil %: 84.8 H 11/12 06:49 WBC: 16.8 H Hgb: 11.3 L Hct: 33.6 L Platelet: 351 Neutrophil %: 86.4 H Glucose Level: 119 H Sodium Level: 138 Potassium Level: 4.1 BUN: 10.0 Creatinine Lvl (s): 1.01 Imaging Results and Diagnostics CT Abd/Pelvis w/ IV Contrast Only Result Date: November 13, 2023 Verified By: MIREYA MARLEY MD CLINICAL STATEMENT: IMPRESSION: 1. Prominent central and inferior liver abnormality. Necrotic neoplasm andintrahepatic abscesses are the leading considerations.2. Masslike prominence of the head of the pancreas with prominent atrophy ofthe pancreatic body and tail. Focal pancreatitis could have this appearance,although pancreatic malignancy must be strongly considered.3. Hyacinth hepatis adenopathy. This could be reactive, hyperplastic,inflammatory, or neoplastic.4. Small amount of fluid in the lesser sac. CT Angiography Neck w/ Contrast Result Date: November 12, 2023 Verified By: ALYCIA HAWK MD CLINICAL STATEMENT: IMPRESSION: No hemodynamically significant stenosis of either carotid bifurcation. Incidental note of a 6 mm left internal mammary lymph node of unknownclinical significance. Correlate clinically andconsider [id number] as well as correlating with patient history for any evidence ofcancer history, including breast. Degenerative disc disease resulting in areas of suspected mild to moderatespinal canal narrowing. Correlate with any radiculopathy. Periapical lucencies. Dental consultationrecommended. Heterogeneous appearance of the bones which is nonspecific and may be seenwith normal aging, bone marrow reconversion, blood cell disorders or possiblemetabolic disorders. Findings suggestive of acute sinusitis as above. I have personally reviewed the images of this examination and agree with theresident's findings and interpretation. CT Angiography Head w/ Contrast Result Date: November 12, 2023 Verified By: ALYCIA HAWK MD CLINICAL STATEMENT: IMPRESSION: No evidence of major arterial occlusion, aneurysm, or significant stenosis. CT Head or Brain w/o Contrast Result Date: November 12, 2023 Verified By: AR PRIETO MD CLINICAL STATEMENT: IMPRESSION: No acute intracranial hemorrhage. Small chronic appearing insult in the right posteriortemporal-occipitallobe. Chronic appearing small insult in the right thalamus. XR Chest 1 View Result Date: November 12, 2023 Verified By: MIREYA MARLEY MD CLINICAL STATEMENT: IMPRESSION: Hypoventilatory changes, no other acute finding. Assessment/Plan Left arm spasm Left-sided weakness Headache Probably TIA, r/o acute stroke, less likely focal seizures. A spasm related to radiculopathy would also be in the DDX, but would not be expected to cause fannie-anesthesia. Brain and C-spine MRI ordered & pending. EEG- no seizures. Continue just ASA. Will trial Migraine cocktail for ARNOLD. No new neuro deficits on exam. 30 Day cardionet on discharge OP f/u with neurology in 2-4 weeks Discussed with , pt, and battery recharger. Will follow. Please call with any concerns or questions. High risk acute neurologic condition (which poses threat to neurologic function) due to high chanceof recurrent stroke/TIA without intervention. Multiple other comorbidities present as well, including chronic pancreatitis. Digitally Signed by STEFANIA SEYMOUR on 11/14/2023 11:19 AM Digitally Signed by STEFANIA SEYMOUR on 11/14/2023 12:52 PM Digitally Signed by LEONARDO POLANCO MD on 11/14/2023 03:09 PM [id number] Note ORIGINAL EXAMINATION: LIMITED ABDOMINAL ULTRASOUND11/14/2023 6:52 am Limited ultrasound of the abdomen attention right upper quadrant COMPARISON: CT 11/13/2023 HISTORY: ORDERING SYSTEM PROVIDED HISTORY: Reason for Exam: Pancreatitis R/O gallstones, abnormal CT, liver lesion FINDINGS: The gallbladder is moderately distended. There is mild gallbladder wall thickening and some minimal pericholecystic edema. No gallstones. Unreliable Sommers sign due to patient being medicated. There is no intrahepatic bile duct dilatation. The common duct is 9-10 mm at the hyacinth hepatis. No stone is seen in the visualized portions of the duct. The liver is normal in size. Background echogenicity is within normal limits. There is a large focal masslike abnormality in the right lobe that is mixed cystic and solid. This is about 11.4 cm in maximum diameter with only minimal blood flow in its peripheral portions. No other liver lesion is seen. The pancreas is mostly obscured by artifacts and poorly evaluated. No ascites is seen in the RIGHT upper quadrant. Limited survey images of the RIGHT kidney show normal echogenicity and no pelvocaliectasis. IMPRESSION: Large complex liver lesion. The liver abscess should be the primary consideration, necrotic neoplasm is possible but less likely. Common duct dilatation. The pancreas is completely obscured. Reactive changes of the gallbladder. No gallstones. Interpreted by: Víctor Clement MD Preliminary Report By: Víctor Clement MD Electronically signed By Víctor Clement MD Dictated Date: 11/14/2023 10:04:46 AM Prelim Date: 11/14/2023 10:09:36 AM Sign Date: 11/14/2023 10:09:36 AM Ordering Provider: [facility]05-20-2024 Gastroenterology Consult note Date of Service November 13, 2023 Reason for Consultation Abdominal pain, history of chronic pancreatitis History of Present Illness He is 62-year-old gentleman was history of diabetes mellitus, osteoarthritis, spinal stenosis, hypercholesteremia, alcohol and nicotine abuse and history of TIAs. He is admitted with numbness of the left face, neck and left upper extremity. He is being investigated for stroke. He mentioned that he had pancreatitis in 2018 and was admitted for a prolonged period of time in [place]. He apparently had exploratory laparotomy, and had possible pancreatic stents placement. Since then he has had intermittent flareups of pancreatitis. He has moved to [place] last 1 year. He has flareup of pancreatitis every 3 to 6 months. He usually gets admitted to [facility]. He sometimes goes to ER and is discharged home after fluids and pain medication. He continuesto drink heavily. Some days he drinks more than a pint of hard liquor. He also smokes. He mentionedthat he stopped drinking alcohol 2 weeks ago. He still has his gallbladder. Serum triglycerides is n ormal. He now complains of diffuse abdominal pain for 4 weeks. He describes this pain as a dull ache with sharp exacerbations. He rates the pain to moderate in severity. The pain may get worse after eating.There is no radiation of the pain. He has nausea and occasional vomiting. He also complains of diarrhea for last 1 month. He was having 2-3's soft or liquid stools per day. There is no blood in the stool. The diarrhea seems to be better and he has not had a bowel movement for last [address] scan of abdomen in August 2023 apparently showed focal calcifications in the pancreatic head. There was slight haziness around the head and atrophia or absence of body and tail of the pancreas. There are some inflammatory changes near the duodenum. I do not have the actual report of the CT scan and we have been done in a different hospital. His recent CT scan was abnormal. The results are documented in the impression. There are no inflammatory changes around the pancreas. Serum lipase is normal at 25. Serum triglycerides are normal. WBC16.8, hemoglobin 11.1, platelets 351. Sodium 138 potassium 4.1 BUN 10 and creatinine 1.0. Albumin 1.9, bilirubin 0.7, AST 22, ALT 14. Review of Systems 12 system review of system was performed. Pertinent positive and negative findings are noted in history of present illness Physical Exam Vitals and Measurements T: 36.5 C (Oral) TMIN: 36.5 C (Oral) TMAX: 37.0 C (Oral) HR: 82 RR: 20 BP: 96/69 SpO2: 96% HT: 185.4 cm WT: 99 kg BMI: 28.8 Weight Dosing Weight: 99 kg (11/12/23) Dosing Weight: 99 kg (11/12/23) Lab Results 11/12 06:49 WBC: 16.8 H Hgb: 11.3 L Hct: 33.6 L Platelet: 351 Neutrophil %: 86.4 H Glucose Level: 119 H Sodium Level: 138 Potassium Level: 4.1 BUN: 10.0 Creatinine Lvl (s): 1.01 11/11 15:29 WBC: 15.2 H Hgb: 13.2 Hct: 40.1 Platelet: 425 Neutrophil %: 83.9 H Protime: 15.0 H PT International Ratio: 1.3 Glucose Level: 112 Sodium Level: 134 L Potassium Level: 3.9 BUN: 11.0 Creatinine Lvl (s): 0.97 Assessment/Plan Orders: AFP tumor marker, 11/14/23 5:00:00 EDT, Next AM Draw (one day only), Blood, Once, Stop date 11/14/23 5:00:00 EDT Carbohydrate Antigen 19-9(CA 19-9), 11/14/23 5:00:00 EDT, Next AM Draw (one day only), Blood, Once,Stop date 11/14/23 5:00:00 EDT Diet Order, 11/13/23 15:39:00 EDT, Clear Liquid Diet, Constant Order, : N/A, : N/A IgG, Subclasses(1-4), 11/13/23 15:44:00 EDT, Routine, Blood, Once, Stop date 11/13/23 16:00:00 EDT MRI Liver, 11/13/23 15:39:00 EDT, 11/13/23 15:39:00 EDT, Routine, Pancreatitis, R/O gallstones, Full code, MTT with Monitor, Isolation: None, IV: Yes, Oxygen: No, Diabetes: Yes, Able to Sign Consent:Yes, : N/A, Wt k, Prior Valve Replacement: No, ME5N MRI Pancreas, 11/13/23 15:39:00 EDT, 11/13/23 15:39:00 EDT, Routine, Chronic pancreatitis, mass like head of pancreas, Full code, MTT with Monitor, Isolation: None, IV: Yes, Oxygen: No, Diabetes: Yes, Able to Sign Consent: Yes, : N/A, Wt k, Prior Valve... Pancreatic Elastase, Fecal, 11/13/23 15:43:00 EDT, Routine, Stool, Once, Nurse Collect, Stop date 11/13/23 15:44:00 EDT US Abdomen Complete, 11/13/23 15:41:00 EDT, 11/13/23 15:41:00 EDT, Routine, Pancreatitis R/O gallstones, Full code, Portable: No, MTT with Monitor, Isolation: None, IV: Yes, Oxygen: No, Diabetes: Yes, : N/A, Wt k, ME5N Assessment: 1. This patient has history of pancreatitis secondary to excessive alcohol use and had a prolonged hospitalization in [place] in 2018. He gets intermittent flareup of chronic pancreatitis. The etiology of pancreatitis is most likely alcohol. We will rule out cholelithiasis. He continues to smoke and drink alcohol despite recurrent flareup of chronic pancreatitis. He now complains ofdiffuse abdominal pain, intermittent nausea and vomiting for 1 month. I am not certain whether it is having a flareup or not. He is somewhat vague about his symptoms 2. Diarrhea. I think we should rule out chronic pancreatic insufficiency. The diarrhea has resolvedin last 4 days. He has not had a bowel movement. Infectious diarrhea is less likely 3. Abnormal CT scan of abdomen on 11/13/2023. There is very prominent central and inferior liver abnormality with heterogeneous area which measures 11.8 cm. There are discrete areas of decreased density suggesting fluid or necrosis. The larger area is 4.9 cm and smaller areas of fluid all cystic andnecrotic in density. Body and tail of pancreas is extremely atrophic or absent. Head of pancreas isrounded or masslike. There is a 9 mm calcification in pancreatic head. Plan: 1. See orders above 2. I strongly advised him to stop drinking alcohol and stop smoking because of his history of chronic pancreatitis Procedure/Surgical History No qualifying data available. Medications Inpatient aspirin, 81 mg= 1 tab(s), Oral, qDay Dextrose 50% IV Push, 12.5 gram(s)= 25 mL, IV Push, AsDirected, PRN Dilaudid, 1 mg= 1 mL, IV Push, q2h, PRN Dulcolax Laxative, 10 mg= 2 tab(s), Oral, qDay, PRN HumaLOG 100 units/mL subcutaneous solution, Give 0-10 units/dose, Subcutaneous, TIDAC Lovenox, 40 mg= 0.4 mL, Subcutaneous, qDay Maalox, 30 mL, Oral, q2h, PRN melatonin, 3 mg= 1 tab(s), Oral, qHS, PRN NS 1,000 mL, 1000 mL, Intravenous Senokot S, 1 tab(s), Oral, BID, PRN Tylenol, 650 mg= 2 tab(s), Oral, q4h, PRN Tylenol, 650 mg= 1 supp, Rectal, q4h, PRN Zofran, 4 mg= 2 mL, IV Push, q4h, PRN Zosyn, 3.375 gram(s)= 50 mL, IV Piggyback, q8hr Home ciprofloxacin 500 mg oral tablet, 500 mg= 1 tab(s), Oral, BID, Current Antibiotic HumaLOG KwikPen 100 units/mL injectable PEN, 5 unit(s), Subcutaneous, TIDAC Lantus Solostar Pen 100 units/mL 3 mL Pen, 25 unit(s), Subcutaneous, BID metFORMIN 1000 mg oral tablet (IR), 1000 mg= 1 tab(s), Oral, BID montelukast 10 mg oral tablet, 10 mg= 1 tab(s), Oral, qDay rosuvastatin 40 mg oral tablet, 40 mg= 1 tab(s), Oral, qDay sertraline 50 mg oral tablet, 50 mg= 1 tab(s), Oral, qDay traZODone 100 mg oral tablet, 100 mg= 1 tab(s), Oral, qHS Xyzal 5 mg oral tablet, 5 mg= 1 tab(s), Oral, qDay Allergies erythromycin Immunizations No qualifying data available. Digitally Signed by ATIF MENDEZ MD on 11/13/2023 03:56 PM [facility] [id number] Note ORIGINAL EXAMINATION: CT OF THE ABDOMEN AND PELVIS WITH CONTRAST 11/13/2023 1:07 pm TECHNIQUE: CT of the abdomen and pelvis was performed with the administration of intravenous contrast. Multiplanar reformatted images are provided for review. Automated exposure control, iterative reconstruction, and/or weight based adjustment of the mA/kV was utilized to reduce the radiation dose to as low as reasonably achievable. COMPARISON: None. HISTORY: ORDERING SYSTEM PROVIDED HISTORY: Reason for Exam: abd pain, chronic pancreatitis, nausea, cramping abdominal pain FINDINGS: Kjez-fg-[id number] degenerative changes are noted in the spine. Several left posterolateral rib deformities are noted from remote injury. Mild hip osteoarthritis is evident. The lung bases are unremarkable. Very prominent central and inferior liver abnormality is evident. Heterogeneous area measures up to 11.8 cm in size, and there are discrete areas of diminished density present suggesting fluid or necrosis. Anteriorly, 1 of the larger such areas measures 4.9 cm. There are other smaller areas of fluid, cystic, or necrotic density within the area as well. No biliary dilatation seen. The spleen and adrenal glands are unremarkable. A tiny right renal cyst is present. No other kidney finding. The body and tail of the pancreas are either extremely atrophic or absent. The head of the pancreas appears rounded and masslike. There is a coarse 9 mm calcification at the pancreatic head which may be dystrophic. I do not identify significant infiltrative change surrounding the pancreatic head. A small amount of fluid is evident within the lesser sac. Hyacinth hepatis adenopathy is evident, 1.9 cm. No other adenopathy is seen. No free air is visible. The urinary bladder is grossly normal. No GI tract abnormality is evident. No additional contributory finding seen. IMPRESSION: 1. Prominent central and inferior liver abnormality. Necrotic neoplasm and intrahepatic abscesses are the leading considerations. 2. Masslike prominence of the head of the pancreas with prominent atrophy of the pancreatic body and tail. Focal pancreatitis could have this appearance, although pancreatic malignancy must be strongly considered. 3. Hyacinth hepatis adenopathy. This could be reactive, hyperplastic, inflammatory, or neoplastic. 4. Small amount of fluid in the lesser sac. Interpreted by: Mireya Marley MD Preliminary Report By: Mireya Marley MD Electronically signed By Mireya Marley MD Dictated Date: 11/13/2023 1:09:02 PM Prelim Date: 11/13/2023 1:16:40 PM Sign Date: 11/13/2023 1:16:40 PM Ordering Provider: [facility]05-20-2024 Note PROCEDURE TYPE: Routine inpatient EEG PROCEDURE DATE: 11/13/2023 REASON FOR EEG: Evaluate for epileptiform activity SUMMARY OF FINDINGS: During maximal wakefulness, there was a well-regulated 8.5 Hz posterior dominant rhythm which was symmetric and reactive. No consistent focal slowing or interhemispheric asymmetry was noted. Drowsiness without definite sleep was identified. No interictal epileptiform discharges or electrographic seizures were identified. GENERAL IMPRESSION: Normal awake and drowsy EEG. The lack of epileptiform activity does not conclusively rule out a seizure disorder. Digitally Signed by LEONARDO POLANCO MD on 11/13/2023 12:20 PM [facility] [id number] Neurology Consult note Date of Service November 13, 2023 Reason for Consultation Left-sided weakness and numbness Referring Physician Dr. Valenzuela History of Present Illness 62-year-old male with a history of chronic pancreatitis. He was not on aspirin prior to admission. He had an event described as a sudden stiffening up of his left upper extremity. He described it asbeing held in a flexed position and hypertonic without any twitching. It was painful. When this occurred he also noticed numbness of his left face left arm and left lower extremity described as loss of sensation. After few minutes the hypertonicity let up but he continued to have persistent numbness. It is improved today but not resolved. He does report a history of similar spells but could not recall further details. He estimates this has happened perhaps 4 or 5 other times in the past. He hasbeen diagnosed with TIA. He does endorse a mild to moderate headache but he is also having abdominal pain and feels that hispancreatitis is likely flaring up again. He was visibly uncomfortable with abdominal pain when I saw him today. He denies a history of seizure. He also has a history of cervical stenosis and has chronic neck pain. Review of Systems Aside from what is mentioned in the HPI, there were no other pertinent positives in the patient's neurologic review of systems. Physical Exam Vitals and Measurements T: 36.9 C (Oral) TMIN: 36.8 C (Oral) TMAX: 37.1 C (Oral) HR: 84 (Monitored) RR: 18 BP: 111/68 SpO2:93% HT: 185.4 cm WT: 99 kg BMI: 28.8 Weight Dosing Weight: 99 kg (11/12/23) Dosing Weight: 99 kg (11/12/23) Neurologic Exam Mental Status: Grossly reduced recall and mild incoherence Orientation: oriented to person, hospital, and month Language: normal fluency, normal simple comprehension Speech: non-dysarthric Cranial Nerves: Pupils: 4mm -> 2mm bilaterally Visual [place]: full to confrontation bilaterally Fundus: not well visualized as the patient wasn't tolerating the light and having trouble fixating CN III, IV, : EOMI. No sustained nystagmus CN V: reduced sensation to light touch and temp on the left CN VII: face symmetric at rest. Facial muscle strength intact CN VIII: auditory acuity intact to bedside testing Sensation: Light touch: reduced in LUE Motor: Involuntary movements: none Strength: LUE: 5/5 proximally, 5/5 distally RUE: 5/5 proximally, 5/5 distally LLE: 5/5 proximally, 5/5 distally RLE: 5/5 proximally, 5/5 distally Reflexes: R L B 1 1 BR 1 1 P 1 1 Toes down down Coordination: FNF intact bilaterally Lab Results The following labs were reviewed: 11/12 06:49 WBC: 16.8 H Hgb: 11.3 L Hct: 33.6 L Platelet: 351 Neutrophil %: 86.4 H Glucose Level: 119 H Sodium Level: 138 Potassium Level: 4.1 BUN: 10.0 Creatinine Lvl (s): 1.01 11/11 15:29 WBC: 15.2 H Hgb: 13.2 Hct: 40.1 Platelet: 425 Neutrophil %: 83.9 H Protime: 15.0 H PT International Ratio: 1.3 Glucose Level: 112 Sodium Level: 134 L Potassium Level: 3.9 BUN: 11.0 Creatinine Lvl (s): 0.97 Imaging Results and Diagnostics The following imaging reports were reviewed: CT Angiography Neck w/ Contrast Result Date: November 12, 2023 Verified By: ALYCIA HAWK MD CLINICAL STATEMENT: IMPRESSION: No hemodynamically significant stenosis of either carotid bifurcation. Incidental note of a 6 mm left internal mammary lymph node of unknownclinical significance. Correlate clinically andconsider giebr-[id number] as well as correlating with patient history for any evidence ofcancer history, including breast. Degenerative disc disease resulting in areas of suspected mild to moderatespinal canal narrowing. Correlate with any radiculopathy. Periapical lucencies. Dental consultationrecommended. Heterogeneous appearance of the bones which is nonspecific and may be seenwith normal aging, bone marrow reconversion, blood cell disorders or possiblemetabolic disorders. Findings suggestive of acute sinusitis as above. I have personally reviewed the images of this examination and agree with theresident's findings and interpretation. CT Angiography Head w/ Contrast Result Date: November 12, 2023 Verified By: ALYCIA HAWK MD CLINICAL STATEMENT: IMPRESSION: No evidence of major arterial occlusion, aneurysm, or significant stenosis. CT Head or Brain w/o Contrast Result Date: November 12, 2023 Verified By: AR PRIETO MD CLINICAL STATEMENT: IMPRESSION: No acute intracranial hemorrhage. Small chronic appearing insult in the right posteriortemporal-occipitallobe. Chronic appearing small insult in the right thalamus. XR Chest 1 View Result Date: November 12, 2023 Verified By: MIREYA MARLEY MD CLINICAL STATEMENT: IMPRESSION: Hypoventilatory changes, no other acute finding. Images of the CT head were personally reviewed - no definite acute process was appreciated, only chronic changes were apparent. EKG Sinus Assessment/Plan Left arm spasm Left-sided weakness Based on his description of the event and prior recurrent episodes, in addition to stroke/TIA, focal seizures would be a consideration. A spasm related to radiculopathy would also be in the DDX, but this of course would not be expected to cause fannie-anesthesia. Agree with the brain MRI. I added a cervical MRI and an EEG as well. Would suggest starting just aspirin for now given his comorbid conditions and uncertain current diagnosis. Will follow. High risk acute neurologic condition (which poses threat to neurologic function) due to high chanceof recurrent stroke/TIA without intervention. Multiple other comorbidities present as well, including chronic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 Comments (unrecognized sect ion and content) No Status Records FoundNo Status Records FoundNo Status Records FoundNo Status Records FoundNo Status Records FoundNo Status Records FoundNo Status Records FoundNo Status Records FoundNo Status Records Found INFORMATION SOURCE (unrecogn ized section and content) DATE CREATED AUTHOR [facility]20[facility] DATE CREATED AUTHOR AUTHOR'S ORGANIZ ATION 12/26/2023 [facility] ([place] DATE CREATED AUTHOR AUTHOR'S ORGANIZ ATION 01/11/[address] [facility] DATE CREATED AUTHOR AUTHOR'S ORGANIZ ATION 06/20/2024 [facility] DATE CREATED AUTHOR AUTHOR'S ORGANIZ ATION 09/07/2024 [facility] DATE CREATED AUTHOR AUTHOR'S ORGANIZ ATION 01/19/2025 [facility] DATE CREATED AUTHOR AUTHOR'S ORGANIZ ATION 01/31/2025 [facility] DATE CREATED AUTHOR AUTHOR'S ORGANIZ ATION 04/05/2025 [facility] DATE CREATED AUTHOR AUTHOR'S ORGANIZ ATION 04/06/2025 [facility] Care Teams (unrecognized sec tion and content) Team Status: Active Member Role Status Dates No Primary Care Physician Primary Care Provider Active Team Status: Active Member Role Status Dates Dr. Ty Pepper , DO Emergency Provider Active Dr. Rand Amin MD Admit Provider, Other Provider Active ROCÍO GOMES Primary Care Provider Active Dr. Leonardo Carr DO Attending Provider, Other Provid er Active Team Status: Inactive Member Role Status Dates Dr. Ty Pepper DO Emergency Provider Active Dr. Rand Amin MD Admit Provider, Other Provider Active ROCÍO GOMES Primary Care Provider Active Dr. Leonardo Carr DO Attending Provider Active Team Status: Inactive Member Role Status Dates Dr. Michael Ricardo MD Attending Provider, Emergency Pro vider Active No Primary Care Physician Primary Care Provider Active Team Status: Inactive Member Role Status Dates No Primary Care Physician Primary Care Provider Active Dr. Leonardo Meyers , Attending Provider, Emergency P rovider Active Team Status: Inactive Member Role Status Dates No Primary Care Physician Primary Care Provider Active Dr. Ramos Ramos , DO Emergency Provider Active Team Status: Active Member Role Status Dates Mago Elliott MD Primary Care Provider Active Team Status: Inactive Member Role Status Dates Mago Elliott MD Primary Care Provider, Attending Prov ider Active Team Status: Inactive Member Role Status Dates Mago Elliott MD Primary Care Provide r, Attending Provider, Referring Provider Active Head Of Art Relationship Specialty Start Date End Date Mago Elliott MD [address] [facility] [address] [place] [address] PCP - General Internal Medicine 04/09/23 Head Of Art Relationship Specialty Start Date End Date Mago Elliott MD [address] [facility] [address] [place] [address] PCP - General Internal Medicine 04/09/23 Head Of Art Relationship Specialty Start Date End Date Mago Elliott MD [address] [facility] [address] [place] [address] PCP - General Internal Medicine 04/09/23 Head Of Art Relationship Specialty Start Date End Date Mago Elliott MD [address] [facility] [address] [place] [address] PCP - General Internal Medicine 04/09/23 Head Of Art Relationship Specialty Start Date End Date Mago Elliott MD [address] [facility] [address] [place] [address] PCP - General Internal Medicine 04/09/23 Head Of Art Relationship Specialty Start Date End Date Mago Elliott MD [address] [facility] [address] [place] [address] PCP - General Internal Medicine 04/09/23 Head Of Art Relationship Specialty Start Date End Date Mago Elliott MD [address] [facility] [address] [place] [address] PCP - General Internal Medicine 04/09/23 Head Of Art Relationship Specialty Start Date End Date Mago Elliott MD [address] [facility] [address] [place] [address] PCP - General Internal Medicine 04/09/23 Head Of Art Relationship Specialty Start Date End Date Mago Elliott MD [address] [facility] [address] [place] [address] PCP - General Internal Medicine 04/09/23 Head Of Art Relationship Specialty Start Date End Date Mago Elliott MD [address] [facility] [address] [place] [address] PCP - General Internal Medicine 04/09/23 Head Of Art Relationship Specialty Start Date End Date Mago Elliott MD [address] [facility] [address] [place] [address] PCP - General Internal Medicine 04/09/23 Head Of Art Relationship Specialty Start Date End Date Mago Elliott MD [address] [facility] [address] [place] [address] PCP - General Internal Medicine 04/09/23 Head Of Art Relationship Specialty Start Date End Date Mago Elliott MD [address] [facility] [address] [place] [address] PCP - General Internal Medicine 04/09/23 Head Of Art Relationship Specialty Start Date End Date Mago Elliott MD [address] [facility] [address] [place] [address] PCP - General Internal Medicine 04/09/23 Head Of Art Relationship Specialty Start Date End Date Mago Elliott MD [address] [facility] [address] [place] [address] PCP - General Internal Medicine 04/09/23 Head Of Art Relationship Specialty Start Date End Date Mago Elliott MD [address] [facility] [address] [place] [address] PCP - General Internal Medicine 04/09/23 Head Of Art Relationship Specialty Start Date End Date Mago Elliott MD [address] [facility] [address] [place] [address] PCP - General Internal Medicine 04/09/23 Head Of Art Relationship Specialty Start Date End Date Mago Elliott MD [address] [facility] [address] [place] [address] PCP - General Internal Medicine 04/09/23 Head Of Art Relationship Specialty Start Date End Date Mago Elliott MD [address] [facility] [address] [place] [address] PCP - General Internal Medicine 04/09/23 Head Of Art Relationship Specialty Start Date End Date Mago Elliott MD [address] [facility] [address] [place] [address] PCP - General Internal Medicine 04/09/23 Head Of Art Relationship Specialty Start Date End Date Mago Elliott MD [address] [facility] [address] [place] [address] PCP - General Internal Medicine 04/09/23 Head Of Art Relationship Specialty Start Date End Date Mago Elliott MD [address] [facility] [address] [place] [address] PCP - General Internal Medicine 04/09/23 Team Status: Inactive Member Role Status Dates Mago Elliott MD Primary Care Provider Active St art: October 03, 2024 End: October 03, 2024 Mago Elliott MD Attending Provider Active Start : October 03, 2024 End: October 03, 2024 Mago Elliott MD Referring Provider Active Start : October 03, 2024 End: October 03, 2024 Team Status: Inactive Member Role Status Dates Mago Elliott MD Primary Care Provider Active St art: October 17, 2024 End: October 17, 2024 Dr. Toni Luna MD Attending Provider Active Start: October 17, 2024 End: October 17, 2024 Dr. Toni Luna MD Referring Provider Active Start: October 17, 2024 End: October 17, 2024 Team Status: Active Member Role Status Dates Mago Elliott MD Primary Care Provider Active St art: October 17, 2024 Dr. Leonardo Huffman MD Attending Provider Active S tart: October 17, 2024 Head Of Art Relationship Specialty Start Date End Date Mago Elliott MD [address] [facility] [address] [place] [address] PCP - General Internal Medicine 04/09/23 Team Status: Active Member Role/Relationship Status Dates Mago Elliott MD Primary Care Provider Active Team Status: Inactive Member Role/Relationship Status Dates Mago Elliott MD Primary Care Provider Active St art: February 27, 2025 End: February 27, 2025 Mago Elliott MD Attending Provider Active Start : February 27, 2025 End: February 27, 2025 Goals (unrecognized section and content) Goals may be documented in a n alternate sectionGoals may be documented in an alternate section No data available for this section No data available for this section No data available for this section No data available for this sectionGoals may be documented in an alternate sectionGoals may be documented in an alternate sectionGoals may be documented in an alternate section Source Comments (unrecognize d section and content) In the event this informatio n is protected by the Federal Confidentiality of Alcohol and Drug Abuse Patient Records regulations: The Federal rules restrict any use of the information to criminally investigate or prosecute any alcohol or drug abuse patient.[facility] the event this information is protected by the Federal Confidentiality of Alcohol and Drug Abuse Patient Records regulations: The Federal rules restrict any use of the information to criminally investigate or prosecute any alcohol or drug abuse patient.[facility] the event this information is protected by the Federal Confidentiality of Alcohol and Drug Abuse Patient Records regulations: The Federal rules restrict any use of the information to criminally investigate or prosecute any alcohol or drug abuse patient.[facility] the event this information is protected by the Federal Confidentiality of Alcohol and Drug Abuse Patient Records regulations: The Federal rules restrict any use of the information to criminally investigate or prosecute any alcohol or drug abuse patient.[facility] the event this information is protected by the Federal Confidentiality of Alcohol and Drug Abuse Patient Records regulations: The Federal rules restrict any use of the information to criminally investigate or prosecute any alcohol or drug abuse patient.[facility] the event this information is protected by the Federal Confidentiality of Alcohol and Drug Abuse Patient Records regulations: The Federal rules restrict any use of the information to criminally investigate or prosecute any alcohol or drug abuse patient.[facility] HospitalIn the event this information is protected by the Federal Confidentiality of Alcohol and Drug Abuse Patient Records regulations: The Federal rules restrict any use of the information to criminally investigate or prosecute any alcohol or drug abuse patient.[facility]In the event this information is protected by the Federal Confidentiality of Alcohol and Drug Abuse Patient Records regulations: The Federal rules restrict any use of the information to criminally investigate or prosecute any alcohol or drug abuse patient.[facility] HospitalIn the event this information is protected by the Federal Confidentiality of Alcohol and Drug Abuse Patient Records regulations: The Federal rules restrict any use of the information to criminally investigate or prosecute any alcohol or drug abuse patient.[facility] HospitalIn the event this information is protected by the Federal Confidentiality of Alcohol and Drug Abuse Patient Records regulations: The Federal rules restrict any use of the information to criminally investigate or prosecute any alcohol or drug abuse patient.[facility] HospitalIn the event this information is protected by the Federal Confidentiality of Alcohol and Drug Abuse Patient Records regulations: The Federal rules restrict any use of the information to criminally investigate or prosecute any alcohol or drug abuse patient.[facility] HospitalIn the event this information is protected by the Federal Confidentiality of Alcohol and Drug Abuse Patient Records regulations: The Federal rules restrict any use of the information to criminally investigate or prosecute any alcohol or drug abuse patient.[facility] Hospital[facility] the event this information is protected by the Federal Confidentiality of Alcohol and Drug Abuse Patient Records regulations: The Federal rules restrict any use of the information to criminally investigate or prosecute any alcohol or drug abuse patient.[facility]In the event this information is protected by the Federal Confidentiality of Alcohol and Drug Abuse Patient Records regulations: The Federal rules restrict any use of the information to criminally investigate or prosecute any alcohol or drug abuse patient.[facility] HospitalIn the event this information is protected by the Federal Confidentiality of Alcohol and Drug Abuse Patient Records regulations: The Federal rules restrict any use of the information to criminally investigate or prosecute any alcohol or drug abuse patient.[facility] HospitalIn the event this information is protected by the Federal Confidentiality of Alcohol and Drug Abuse Patient Records regulations: The Federal rules restrict any use of the information to criminally investigate or prosecute any alcohol or drug abuse patient.[facility] HospitalIn the event this information is protected by the Federal Confidentiality of Alcohol and Drug Abuse Patient Records regulations: The Federal rules restrict any use of the information to criminally investigate or prosecute any alcohol or drug abuse patient.[facility] HospitalIn the event this information is protected by the Federal Confidentiality of Alcohol and Drug Abuse Patient Records regulations: The Federal rules restrict any use of the information to criminally investigate or prosecute any alcohol or drug abuse patient.[facility] HospitalIn the event this information is protected by the Federal Confidentiality of Alcohol and Drug Abuse Patient Records regulations: The Federal rules restrict any use of the information to criminally investigate or prosecute any alcohol or drug abuse patient.[facility] HospitalIn the event this information is protected by the Federal Confidentiality of Alcohol and Drug Abuse Patient Records regulations: The Federal rules restrict any use of the information to criminally investigate or prosecute any alcohol or drug abuse patient.[facility] HospitalIn the event this information is protected by the Federal Confidentiality of Alcohol and Drug Abuse Patient Records regulations: The Federal rules restrict any use of the information to criminally investigate or prosecute any alcohol or drug abuse patient.[facility] HospitalIn the event this information is protected by the Federal Confidentiality of Alcohol and Drug Abuse Patient Records regulations: The Federal rules restrict any use of the information to criminally investigate or prosecute any alcohol or drug abuse patient.[facility] HospitalIn the event this information is protected by the Federal Confidentiality of Alcohol and Drug Abuse Patient Records regulations: The Federal rules restrict any use of the information to criminally investigate or prosecute any alcohol or drug abuse patient.[facility] HospitalIn the event this information is protected by the Federal Confidentiality of Alcohol and Drug Abuse Patient Records regulations: The Federal rules restrict any use of the information to criminally investigate or prosecute any alcohol or drug abuse patient.[facility]In the event this information is protected by the Federal Confidentiality of Alcohol and Drug Abuse Patient Records regulations: The Federal rules restrict any use of the information to criminally investigate or prosecute any alcohol or drug abuse patient.[facility] HospitalIn the event this information is protected by the Federal Confidentiality of Alcohol and Drug Abuse Patient Records regulations: The Federal rules restrict any use of the information to criminally investigate or prosecute any alcohol or drug abuse patient.[facility] HospitalIn the event this information is protected by the Federal Confidentiality of Alcohol and Drug Abuse Patient Records regulations: The Federal rules restrict any use of the information to criminally investigate or prosecute any alcohol or drug abuse patient.[facility] HospitalIn the event this information is protected by the Federal Confidentiality of Alcohol and Drug Abuse Patient Records regulations: The Federal rules restrict any use of the information to criminally investigate or prosecute any alcohol or drug abuse patient.[facility] HospitalIn the event this information is protected by the Federal Confidentiality of Alcohol and Drug Abuse Patient Records regulations: The Federal rules restrict any use of the information to criminally investigate or prosecute any alcohol or drug abuse patient.[facility] HospitalIn the event this information is protected by the Federal Confidentiality of Alcohol and Drug Abuse Patient Records regulations: The Federal rules restrict any use of the information to criminally investigate or prosecute any alcohol or drug abuse patient.[facility] HospitalIn the event this information is protected by the Federal Confidentiality of Alcohol and Drug Abuse Patient Records regulations: The Federal rules restrict any use of the information to criminally investigate or prosecute any alcohol or drug abuse patient.[facility] HospitalIn the event this information is protected by the Federal Confidentiality of Alcohol and Drug Abuse Patient Records regulations: The Federal rules restrict any use of the information to criminally investigate or prosecute any alcohol or drug abuse patient.[facility] HospitalIn the event this information is protected by the Federal Confidentiality of Alcohol and Drug Abuse Patient Records regulations: The Federal rules restrict any use of the information to criminally investigate or prosecute any alcohol or drug abuse patient.[facility] HospitalIn the event this information is protected by the Federal Confidentiality of Alcohol and Drug Abuse Patient Records regulations: The Federal rules restrict any use of the information to criminally investigate or prosecute any alcohol or drug abuse patient.[facility]In the event this information is protected by the Federal Confidentiality of Alcohol and Drug Abuse Patient Records regulations: The Federal rules restrict any use of the information to criminally investigate or prosecute any alcohol or drug abuse patient.[facility] HospitalIn the event this information is protected by the Federal Confidentiality of Alcohol and Drug Abuse Patient Records regulations: The Federal rules restrict any use of the information to criminally investigate or prosecute any alcohol or drug abuse patient.[facility] HospitalIn the event this information is protected by the Federal Confidentiality of Alcohol and Drug Abuse Patient Records regulations: The Federal rules restrict any use of the information to criminally investigate or prosecute any alcohol or drug abuse patient.[facility] HospitalIn the event this information is protected by the Federal Confidentiality of Alcohol and Drug Abuse Patient Records regulations: The Federal rules restrict any use of the information to criminally investigate or prosecute any alcohol or drug abuse patient.[facility]In the event this information is protected by the Federal Confidentiality of Alcohol and Drug Abuse Patient Records regulations: The Federal rules restrict any use of the information to criminally investigate or prosecute any alcohol or drug abuse patient.[facility]In the event this information is protected by the Federal Confidentiality of Alcohol and Drug Abuse Patient Records regulations: The Federal rules restrict any use of the information to criminally investigate or prosecute any alcohol or drug abuse patient.[facility] Reason for Visit (unrecogniz ed section and content) Reason Onset Date Comments Hospital Follow Up 12/31/2023 Reason Comments Cystoscopy-1 Reason Comments New Patient Pancreatic lesion, C BD stricture and stent, hx liver abscess Reason Comments Appointment Reason Comments Prostate Biopsy Reason Comments prostate nodule Here for PNB results . Reason Comments Follow Up Fu EUS Reason Comments Orders Reason Comments Patient Update Surgery cancellation Reason Comments Abdominal Pain Reason Comments Patient Update Reason Comments Appointment New patient 20 minut es Referral Request Diabetes education Reason Comments CARD New Patient Consult CC,CHF,HLD Whip ple procedure Reason Comments Abdominal Pain Reason Onset Date Comments New Patient Evaluation Appointment Cancelled 05/10/2024 Reason Comments Orders Reason Comments Results Reason Comments Follow Up F/U Cardiac testing, with labs, having diarrhea really bad after he eats Reason Onset Date Comments Refill Request 09/04/2024 FOR RECORDS PERTAINING TO PATIENTS WHO ARE OR HAVE BEEN ENROLLED IN A CHEMICAL DEPENDENCY/SUBSTANCEABUSE PROGRAM, SOME INFORMATION MAY BE OMITTED. This clinical summary was aggregated from multiple sources. Caution should be exercised in using it in the provision of clinical care. This summary normalizes information from multiple sources, and as a consequence, information in this document may materially change the coding, format and clinical context of patient data. In addition, data may be omitted in some cases. CLINICAL DECISIONS SHOULD BE BASED ON THE PRIMARY CLINICAL RECORDS. [employer] provides no warranty or guarantee of the accuracy or completeness of information in this document.
[2025-04-11 18:29] LABS: PSA,Total - Annual Screen 1.16 ng/mL (0.02-4.00)
[2025-04-11 18:37] LABS: Creatinine, Urine (random) 106.00 mg/dL (39.00-259.00); Microalbumin,Random Urine < 12.0 mg/L (<20 mg/L)
== END | disposition home or self-care (01) ==
LOC: MFPLAB 15:40
PROVIDERS: PCP Family Medicine; Visit Provider Family Medicine
DX: Z00.00 Encounter for general adult medical examination without abnormal findings (principal); E11.9 Type 2 diabetes mellitus without complications
CPT/HCPCS: 36415; 82043; 82570; 84153; G0103

== ENCOUNTER → 2025-06-11 | Outpatient (CLI) | payer MEDICARE, SELFPAY ==
[2025-06-11 13:31] LABS: Hematocrit 45.2 % (40-54); Hemoglobin 15.1 g/dL (13.0-16.5); Mean Corp Hgb Conc 33.4 g/dL (32-36); Mean Corpuscular Volume 87.6 fL (80-94); Mean Platelet Vol. 10.4 fl (6.2-12.0); Platelet Count 213 K/mm3 (150-450); RBC Distribution Width CV 12.8 % (11.6-14.6); RBC Distribution Width SD 41.2 fl (35.1-43.9); Red Blood Count 5.16 M/mm3 (4.6-6.2); White Blood Count 8.4 K/mm3 (4.4-11.0)
[2025-06-11 14:44] LABS: Anion Gap 11 (5-15); BUN 13 mg/dL (4-19); BUN/Creat Ratio 13.3 RATIO (10-20); Calcium,Total 9.5 mg/dL (7.6-11.0); Carbon Dioxide 22.6 mmol/L (21.0-32.0); Chloride 103 mmol/L (98-108); Glucose 160 mg/dL (70-99); Potassium 4.9 mmol/L (3.3-5.1)
== END | disposition home or self-care (01) ==
LOC: LAB 13:01
PROVIDERS: PCP Family Medicine; Referring Provider Otolaryngology; Visit Provider Otolaryngology
DX: Z01.818 Encounter for other preprocedural examination (principal)
CPT/HCPCS: 36415; 80048; 85027